=== PATIENT | female | born 1970 | race Caucasian/White ===

== ENCOUNTER 2020-06-06 14:27 | Outpatient (REF) | payer OTHER, SELFPAY ==
[2020-06-06 16:57] LABS: Anion Gap 19 (12-20); Blood Urea Nitrogen 18 mg/dL (9-16); Carbon Dioxide 20 mmol/L (22-29); Chloride 105 mmol/L (96-108); Cholesterol 166 mg/dL; Estimated Glomerular Filt Rate 55; Glucose Random 174 mg/dL (60-115); HDL Cholesterol 46 mg/dL; LDL Cholesterol Calculated 79 mg/dl; Potassium 4.9 mmol/L (3.3-5.1); Sodium 139 mmol/L (135-145); Triglycerides 206 mg/dL
[2020-06-06 17:19] LABS: TSH reflex Free T4 0.72 uIU/mL (0.32-4.0)
[2020-06-07 07:17] LABS: Estimated Average Glucose 117 mg/dL; Hemoglobin A1c % 5.7 %
== END 2020-06-06 14:28 | disposition home or self-care (01) ==
LOC: HO.HMGCLDS 14:27
PROVIDERS: PCP Internal Medicine; Visit Provider Internal Medicine
DX: E03.9 Hypothyroidism, unspecified (principal); E13.9 Other specified diabetes mellitus without complications; E78.9 Disorder of lipoprotein metabolism, unspecified
CPT/HCPCS: 36415; 80048; 80061; 83036; 84443

== ENCOUNTER 2020-09-11 08:46 | Outpatient (REF) | payer OTHER, SELFPAY ==
[2020-09-11 11:44] LABS: Creatinine Urine 228.43 mg/dL; Microalbum/Creatinine Ratio Ur 9.6 ug/mg cr
[2020-09-11 11:54] LABS: Estimated Average Glucose 111 mg/dL; Hemoglobin A1c % 5.5 %
[2020-09-11 12:07] LABS: Alanine Aminotransferase 33 U/L (0-31); Albumin Level 3.9 g/dL (3.5-5.0); Alkaline Phosphatase 80 U/L (39-117); Anion Gap 11 (12-20); Aspartate Amino Transferase 44 U/L (5-31); Bilirubin Total 0.8 mg/dL (0.0-1.0); Blood Urea Nitrogen 19 mg/dL (9-16); Calcium 9.5 mg/dL (8.4-10.2); Carbon Dioxide 29 mmol/L (22-29); Chloride 105 mmol/L (96-108); Estimated Glomerular Filt Rate > 60; Glucose Random 125 mg/dL (60-115); Potassium 3.8 mmol/L (3.3-5.1); Sodium 141 mmol/L (135-145); Total Protein 6.8 g/dL (6.5-8.0)
[2020-09-11 12:16] LABS: TSH reflex Free T4 1.39 uIU/mL (0.32-4.0)
== END 2020-09-11 08:47 | disposition home or self-care (01) ==
LOC: HO.HMGCLDS 08:46
PROVIDERS: PCP Internal Medicine; Visit Provider Internal Medicine
DX: E03.9 Hypothyroidism, unspecified (principal); E13.9 Other specified diabetes mellitus without complications; E78.9 Disorder of lipoprotein metabolism, unspecified; I10 Essential (primary) hypertension
CPT/HCPCS: 36415; 80053; 82043; 83036; 84443

== ENCOUNTER 2021-01-13 15:22 | Outpatient (REF) | payer OTHER, SELFPAY ==
[2021-01-13 16:53] LABS: Estimated Average Glucose 114 mg/dL; Hemoglobin A1c % 5.6 %
== END 2021-01-13 15:23 | disposition home or self-care (01) ==
LOC: HO.HMGCLDS 15:22
PROVIDERS: PCP Internal Medicine; Visit Provider Internal Medicine
DX: E13.9 Other specified diabetes mellitus without complications (principal); I10 Essential (primary) hypertension; E78.9 Disorder of lipoprotein metabolism, unspecified; E03.9 Hypothyroidism, unspecified
CPT/HCPCS: 36415; 80053; 83036; 84443

== ENCOUNTER 2021-04-03 | Outpatient (REF) | payer OTHER, SELFPAY | END 2021-04-03 00:01 | disposition home or self-care (01) | LOC: HO.LNP | PROVIDERS: Visit Provider Internal Medicine | DX: Z13.89 Encounter for screening for other disorder (principal) ==

== ENCOUNTER 2021-04-17 14:59 | Outpatient (REF) | payer OTHER, SELFPAY ==
[2021-04-17 16:29] LABS: Estimated Average Glucose 108 mg/dL; Hemoglobin A1c % 5.4 %
[2021-04-17 16:34] LABS: Microalbum/Creatinine Ratio Ur 63.5 ug/mg cr
[2021-04-17 16:36] LABS: Alanine Aminotransferase 16 U/L (0-31); Albumin Level 3.4 g/dL (3.5-5.0); Alkaline Phosphatase 74 U/L (39-117); Anion Gap 13 (12-20); Aspartate Amino Transferase 32 U/L (5-31); Bilirubin Total 0.9 mg/dL (0.0-1.0); Blood Urea Nitrogen 16 mg/dL (9-16); Calcium 9.5 mg/dL (8.4-10.2); Carbon Dioxide 27 mmol/L (22-29); Chloride 105 mmol/L (96-108); Estimated Glomerular Filt Rate > 60; Glucose Random 137 mg/dL (60-115); Potassium 4.5 mmol/L (3.3-5.1); Sodium 140 mmol/L (135-145); Total Protein 6.6 g/dL (6.5-8.0)
[2021-04-18 06:36] LABS: LDL Cholesterol Direct 89 mg/dL (<100)
== END 2021-04-17 15:00 | disposition home or self-care (01) ==
LOC: HO.HMGCLDS 14:59
PROVIDERS: PCP Internal Medicine; Visit Provider Internal Medicine
DX: E03.9 Hypothyroidism, unspecified (principal); E13.9 Other specified diabetes mellitus without complications; E78.9 Disorder of lipoprotein metabolism, unspecified; I10 Essential (primary) hypertension; K50.90 Crohn's disease, unspecified, without complications; M06.9 Rheumatoid arthritis, unspecified
CPT/HCPCS: 36415; 80053; 82043; 83036; 83721

== ENCOUNTER 2021-05-04 09:47 | Inpatient (IN) | payer OTHER, SELFPAY ==
--- NOTE | 2021-05-04 | ECG_ITS ---
Test Reason : tachy Blood Pressure : / mmHG Vent. Rate : 122 BPM Atrial Rate : 122 BPM P-R Int : 112 ms QRS Dur : 102 ms QT Int : 428 ms P-R-T Axes : 017 003 020 degrees QTc Int : 609 ms Sinus tachycardia Cannot rule out Anterior infarct , age undetermined Abnormal ECG When compared with ECG of 23-AUG-2016 08:51, Minimal criteria for Anterior infarct are now Present Nonspecific T wave abnormality now evident in Lateral leads Referred By: Generic ED Physician Electronically Signed By:Guilherme Mansfield
--- NOTE | ~2021-05-04 | US_ITS ---
EXAMINATION: US ABDOMEN LIMITED CLINICAL INFORMATION: Right upper quadrant pain. Gallbladder sludge noted on CT done earlier today. COMPARISON: CT of the abdomen/pelvis done earlier today at 6:05 PM. TECHNIQUE: Real-time imaging of the gallbladder. US/US abdomen limited FINDINGS/IMPRESSION: The gallbladder is better appreciated on the CT from earlier today, as this ultrasound is limited due to shadowing from overlying bowel gas and patient body habitus. However, despite these limitations, there is no significant wall thickening (0.2 cm in thickness) and there is no evidence of stones. In this ultrasound there is no evidence of gallbladder sludge but this is likely related to limitations of the study, please refer to the recent CT. The common bile duct measures 0.4 cm. There is redemonstration of ascites.
--- NOTE | ~2021-05-04 | CT_ITS ---
EXAMINATION: CT ABDOMEN AND PELVIS WITHOUT CONTRAST CLINICAL INFORMATION: Right mid abdominal pain. COMPARISON: CT abdomen/pelvis dated from 08/23/2016. TECHNIQUE: Multidetector volumetric imaging was performed from the superior aspect of the liver through the pubic symphysis. Sagittal and coronal reformatted images were obtained on the technologist's workstation. This CT examination was performed using dose optimization techniques as appropriate, variously including the following: *Automated exposure control. *Adjustment of mA and/or kV according to patient size (this includes techniques or standardized protocols for targeted exams where dose is matched to indication/reason for exam; i.e. extremities or head). *Use of iterative reconstruction technique. DLP: 885 mGy-cm FINDINGS: LUNG BASES: Small left-sided pleural effusion. Coronary calcifications. LIVER, GALLBLADDER, AND BILIARY TREE: Cirrhotic liver with findings of portal hypertension including splenomegaly, ascites and portosystemic varices. No biliary ductal dilatation. The gallbladder is hydropic with layering sludge and nonspecific pericholecystic free fluid in the setting of ascites. PANCREAS: Atrophic. The main pancreatic duct is nondilated. SPLEEN: Splenomegaly measuring 17.7 cm craniocaudally. ADRENAL GLANDS: Unremarkable. KIDNEYS AND URETERS: Small 0.3 cm calculi in the lower pole of each kidney. No hydronephrosis. Mild nonspecific, right greater than left, perinephric fat stranding. BLADDER: Underdistended and suboptimally assessed. GASTROINTESTINAL TRACT: There is wall thickening of the stomach and proximal duodenum. Duodenal ulcerations are difficult to exclude on axial images 237 to 258 of series 4. There is also wall thickening of the ascending colon and hepatic flexure. No bowel obstruction. No free air. Moderate volume of ascites. ABDOMINAL WALL: Anasarca. Fat-containing umbilical hernia. Right lower abdominal wall surgical mash with a fat-containing hernia adjacent to this mesh on the right abdominal wall (3:58). LYMPH NODES: Evaluation is limited in the absence of intravenous contrast and the presence of ascites. No bulky lymphadenopathy is definitely identified. VASCULAR: Atherosclerotic disease. PELVIC VISCERA: Unremarkable. OSSEOUS STRUCTURES: No acute or aggressive-appearing osseous abnormalities. Thoracolumbar spondylosis. Healing right-sided rib fractures. CT/CT abdomen pelvis wo con IMPRESSION: The lack of intravenous contrast limits evaluation of the solid visceral organs including the liver, spleen, pancreas, and kidneys. 1. Cirrhotic liver with portal hypertension and moderate volume of ascites. 2. There is wall thickening of the stomach, proximal duodenum, ascending colon and hepatic flexure. These are nonspecific but potentially related with portal hypertensive gastroenteropathy. 3. In the duodenal bulb, there is irregularity of the wall with small scattered outpouchings in which ulcerations cannot be excluded. If indicated, correlation with an upper endoscopy could be obtained. 4. Nonobstructive renal calculi. 5. Postsurgical changes in the right lower abdominal wall with recurrent fat-containing herniation. 6. Small left pleural effusion.
[2021-05-04 10:03] VITALS: BP 157/101; PULSE 120; O2SAT 98
[2021-05-04 11:24] VITALS: BP 130/81; PULSE 130; RESP 18; TEMP 36.9; O2SAT 98; BMI 35.4
[2021-05-04] MEDS: Ondansetron ODT 4 MG TAB.RAPDIS TRANSLINGU (11:35)
[2021-05-04] MEDS: Acetaminophen 325 MG TABLET 975 MG PO (11:38)
[2021-05-04 12:24] LABS: Appearance Urine CLOUDY; Color Urine DK YELLOW; Glucose Urine UA NEG (NEG); Leukocyte Esterase Urine 2+ (NEG); Nitrite Urine NEG (NEG); PH 5.5 (5.0-8.0); UACC Culture Trigger YES; Urine Blood 3+ (NEG); Urine Ketones NEG (NEG); Urine Protein NEG (NEG-TRACE)
[2021-05-04 12:39] LABS: Bacteria Urine 3+ /LPF; Mucus Urine 1+ /LPF; Renal Epithelial Cells Urine 1+ /LPF; Squamous Epithelial Cell Urine 1+ /LPF
--- NOTE | 2021-05-04 12:42 | ED_ITS ---
HPI - General Adult General Chief complaint: General Medical Stated complaint: right arm and neck pain Time Seen by Provider: 05/04/21 12:28 Source: patient and old records reviewed History of Present Illness HPI narrative: Patient complaining of nausea vomiting and diarrhea. Symptoms began 6 days ago but got much worse proximally 3 days ago. She states the diarrhea is watery and foul-smelling. She has had C diff in the past and says this similar. She complains of abdominal pain mostly low right-sided. She has a history of appendectomy. Positive fevers and chills. Recent antibiotics approximately 2 weeks ago for a urinary tract infection. Macrobid. She was on a for 1 week. She states she has had some blood clots and mucus in her urine. No blood in her stool or melena. No hematemesis She also complains of right neck and arm pain which she describes as a spasm type sensation. No recent injuries or precipitating causes. She states it feels similar to an episode she had 20 years ago when her potassium was low. No chest pain. No dyspnea. She states she feels like she might be withdrawing, as she was unable to get her methadone dose today since she was sick and they sent her from the clinic to the emergency department. She typically gets 71 mg daily. Denies recent opioid use and states has been ?completely clean? since 2012. History of hepatitis-C which is cured per patient Related Data Home Medications Medication Instructions Recorded Confirmed celecoxib 200 mg capsule 0 mg PO 11/30/19 04/17/21 linaclotide 290 mcg capsule 290 mcg PO DAILY PRN 11/30/19 04/17/21 tofacitinib 5 mg tablet 5 mg PO BID 11/30/19 04/03/21 Previous Rx's Medication Instructions Recorded levothyroxine 50 mcg tablet 50 mcg PO DAILY 90 Days #90 tab 09/12/20 metronidazole 1 % topical gel 1 appl TOPICAL BEDTIME 30 Days #60 09/12/20 (Metrogel) g fluticasone propionate 50 1 spray INTRANASAL DAILY #16 g 09/15/20 mcg/actuation nasal spray,suspension acyclovir 400 mg tablet 400 mg PO DAILY #90 tab 02/23/21 metoprolol succinate 50 mg 50 mg PO DAILY 90 Days #90 tab 03/10/21 tablet,extended release 24 hr omeprazole 40 mg capsule,delayed 40 mg PO DAILY #90 cap 03/10/21 release simvastatin 10 mg tablet 10 mg PO BEDTIME #90 tab 03/10/21 metformin 500 mg tablet 500 mg PO BID 90 Days #180 tab 04/03/21 nitrofurantoin 100 mg PO Q12H 7 Days #14 cap 04/03/21 monohydrate/macrocrystals 100 mg capsule (Macrobid) furosemide 20 mg tablet (Lasix) 20 mg PO QAM 90 Days #90 tab 04/21/21 Allergies Allergy/AdvReac Type Severity Reaction Status Date / Time ciprofloxacin [Cipro] Allergy Unknown swelling Verified 04/17/21 15:29 of the throat , hives Review of Systems Constitutional: Comments: Positive fevers and chills ENT: Comments: Mild feels very dry Cardiovascular: Comments: Palpitation without chest pain Respiratory: Comments: No cough or dyspnea Gastrointestinal: Comments: Nausea vomiting diarrhea and abdominal pain Genitourinary: Comments: No dysuria. Positive clots or mucus in her last urination Musculoskeletal: Comments: Left neck and arm pain, cramp like. 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 Other Mental health disorder Substance use disorder Social History Social History Housing: Apartment Patient Tobacco Use Status: Current someday Tobacco user Tobacco use type: Cigarette Cigarettes Per Day: 4 Years Smoked: 17 years old Use of substances other than those prescribed or required for medical reasons: No Substance Use Frequency Other:: methadone Advance Directives: No Advance Directives Information Provided: No Current occupational status: employed Physical Exam ED Vital Signs: Vital Signs - 24 hr 05/04/21 11:24 03/21/22 15:24 Temperature 98.5 F 98.9 F Pulse Rate 130 H 115 H Respiratory Rate 18 16 Blood Pressure 130/81 121/64 Pulse Oximetry 98 100 BMI result Body Mass Index 35.4 Const Other: Awake and alert. Tachycardic. HENMT Other: Normocephalic atraumatic. Mucosa very dry Neck Other: Neck tenderness to palpation over left lateral scalene which reproduces symptoms. Positive muscle spasm focally. No trapezius spasm Resp Other: Clear and equal bilaterally without wheezes rales rhonchi Cardio Other: Tachycardic at 130 beats per minute. No murmurs rubs or gallops GI Other: Soft and nondistended. Tenderness diffusely but greatest over right mid to low abdomen. No guarding or rebound. Bowel sounds hyperactive Skin Other: Warm and dry without rash. Poor turgor Neuro Other: Nonfocal Course Course Course Narrative: Dehydration Gastroenteritis C diff colitis Bacterial colitis Urinary tract infection Electrolyte imbalance Renal failure Liver failure IV normal saline Zofran 18:32. Patient with very difficult IV access. She is tolerating mild Po fluids at this point. Heart rate is improved. Lab work shows white count of 12.5. Hemoglobin is 8.6. Platelet count of 26. Creatinine is stable at 0.87. Glucose is 184. Total bilirubin is elevated to 4.5. Transaminases are mildly elevated as well. Await CT scan results. 20:08. CT scan shows diffuse cirrhotic changes with evidence of portal hypertension. Some gallbladder sludge. No evidence of biliary dilatation. Ultrasound confirms these findings. Lactic acid is 3.2 prior to fluid administration. Suspect all secondary to dehydration and hemoconcentration. Still no evidence for sepsis as cause. Given all these findings, diagnosis is likely viral hepatitis. She is still having significant discomfort and nausea. Will repeat dose of Zofran. Add Ketoralac. Her EKG shows sinus rhythm but with a QTC of over 600. Other anti emetics will be avoided at this time such as droperidol. Medical Decision Making Lab Data Result diagrams: 05/04/21 17:33 05/04/21 17:34 Labs: Lab Results 05/04/21 05/04/21 05/04/21 Range/Units 12:15 17:33 17:33 WBC 12.5 H (4.8-10.8) X10*3/uL RBC 2.94 L (4.20-5.50) X10*6/uL Hgb 8.6 L (12.0-16.0) g/dl Hct 26.3 L (37.0-47.0) % MCV 89.5 (80.0-98.0) fL MCH 29.3 (27.0-33.0) pg MCHC 32.7 (31.0-35.0) g/dl RDW 18.0 H (11.0-16.0) % Plt Count 26 L (160-400) X10*3/uL MPV Not Reportable Immature Gran % (Auto) Cancelled Neut % (Auto) Cancelled Lymph % (Auto) Cancelled [place] % (Auto) Cancelled Eos % (Auto) Cancelled Baso % (Auto) Cancelled Lymph # (Auto) Cancelled [place] # (Auto) Cancelled Eos # (Auto) Cancelled Baso # (Auto) Cancelled Abs Immat Gran (auto) Cancelled Absolute Neuts (auto) Cancelled Absolute Nucleated RBC 0.040 H (0.0-0.012) X10*3/uL Nucleated RBC % (auto) 0.3 H (0.0-0.2) /100WBC Neutrophils % (Manual) 74 H (45-73) % Band Neutrophils % 12 H (3-5) % Lymphocytes % (Manual) 2 L (20-40) % Monocytes % (Manual) 10 (2-11) % Metamyelocytes % 1 % Myelocytes % 1 % Abs Neuts (Manual) 10.8 H (2.0-8.3) X10*3/uL Lymphocytes # (Manual) 0.3 L (1.2-4.9) X10*3/uL Monocytes # (Manual) 1.3 H (0.1-1.2) X10*3/uL Metamyelocytes # 0.1 X10*3/uL Myelocytes # 0.1 X10*/uL Nucleated RBCs 1 H (0-0) /100WBC Toxic Vacuolation PRESENT Dohle Bodies PRESENT Platelet Estimate DECREASED (NORMAL) Large Platelets PRESENT Plt Morphology Comment NOTED RBC Morphology NOTED Hypochromasia 1+ (5-14) /OIF Sodium (135-145) mmol/L Potassium (3.3-5.1) mmol/L Chloride (96-108) mmol/L Carbon Dioxide (22-29) mmol/L Anion Gap (12-20) BUN (9-16) mg/dL Creatinine (0.5-1.4) mg/dL Estim Creat Clear Calc Estimated GFR Random Glucose (60-115) mg/dL Lactic Acid (0.5-2.0) mmol/L Calcium (8.4-10.2) mg/dL Magnesium (1.6-2.6) mg/dL Total Bilirubin (0.0-1.0) mg/dL Direct Bilirubin (0.0-0.5) mg/dL AST (5-31) U/L ALT (0-31) U/L Alkaline Phosphatase (39-117) U/L Troponin I High Sens 7.6 (<3.5-17.0) ng/L Total Protein (6.5-8.0) g/dL Albumin (3.5-5.0) g/dL Lipase (8-78) U/L TSH (0.32-4.0) uIU/mL Urine Color DK YELLOW Urine Appearance CLOUDY Urine pH 5.5 (5.0-8.0) Ur Specific [place] 1.020 (1.005-1.025) Urine Protein NEG (NEG-TRACE) MG/DL Urine Glucose (UA) NEG (NEG) MG/DL Urine Ketones NEG (NEG) MG/DL Urine Blood 3+ H (NEG) Urine Nitrite NEG (NEG) Ur Leukocyte Esterase 2+ H (NEG) Urine RBC 5-9 H (0) /HPF Urine WBC 15-29 H (0-4) /HPF Ur Squamous Epith Cells 1+ /LPF Ur Renal Epithelial Cell 1+ /LPF Urine Bacteria 3+ /LPF Urine Mucus 1+ /LPF 05/04/21 05/04/21 Range/Units 17:34 18:55 WBC (4.8-10.8) X10*3/uL RBC (4.20-5.50) X10*6/uL Hgb (12.0-16.0) g/dl Hct (37.0-47.0) % MCV (80.0-98.0) fL MCH (27.0-33.0) pg MCHC (31.0-35.0) g/dl RDW (11.0-16.0) % Plt Count (160-400) X10*3/uL MPV Immature Gran % (Auto) Neut % (Auto) Lymph % (Auto) [place] % (Auto) Eos % (Auto) Baso % (Auto) Lymph # (Auto) [place] # (Auto) Eos # (Auto) Baso # (Auto) Abs Immat Gran (auto) Absolute Neuts (auto) Absolute Nucleated RBC (0.0-0.012) X10*3/uL Nucleated RBC % (auto) (0.0-0.2) /100WBC Neutrophils % (Manual) (45-73) % Band Neutrophils % (3-5) % Lymphocytes % (Manual) (20-40) % Monocytes % (Manual) (2-11) % Metamyelocytes % % Myelocytes % % Abs Neuts (Manual) (2.0-8.3) X10*3/uL Lymphocytes # (Manual) (1.2-4.9) X10*3/uL Monocytes # (Manual) (0.1-1.2) X10*3/uL Metamyelocytes # X10*3/uL Myelocytes # X10*/uL Nucleated RBCs (0-0) /100WBC Toxic Vacuolation Dohle Bodies Platelet Estimate (NORMAL) Large Platelets Plt Morphology Comment RBC Morphology Hypochromasia /OIF Sodium 137 (135-145) mmol/L Potassium 4.6 (3.3-5.1) mmol/L Chloride 105 (96-108) mmol/L Carbon Dioxide 21 L (22-29) mmol/L Anion Gap 16 (12-20) BUN 31 H D (9-16) mg/dL Creatinine 0.87 (0.5-1.4) mg/dL Estim Creat Clear Calc 82.7 Estimated GFR > 60 Random Glucose 184 H (60-115) mg/dL Lactic Acid 3.2 H* (0.5-2.0) mmol/L Calcium 8.1 L D (8.4-10.2) mg/dL Magnesium 2.3 (1.6-2.6) mg/dL Total Bilirubin 4.5 H (0.0-1.0) mg/dL Direct Bilirubin 3.2 H (0.0-0.5) mg/dL AST 75 H (5-31) U/L ALT 57 H (0-31) U/L Alkaline Phosphatase 205 H D (39-117) U/L Troponin I High Sens (<3.5-17.0) ng/L Total Protein 5.6 L (6.5-8.0) g/dL Albumin 2.6 L D (3.5-5.0) g/dL Lipase 70 (8-78) U/L TSH 0.75 (0.32-4.0) uIU/mL Urine Color Urine Appearance Urine pH (5.0-8.0) Ur Specific [place] (1.005-1.025) Urine Protein (NEG-TRACE) MG/DL Urine Glucose (UA) (NEG) MG/DL Urine Ketones (NEG) MG/DL Urine Blood (NEG) Urine Nitrite (NEG) Ur Leukocyte Esterase (NEG) Urine RBC (0) /HPF Urine WBC (0-4) /HPF Ur Squamous Epith Cells /LPF Ur Renal Epithelial Cell /LPF Urine Bacteria /LPF Urine Mucus /LPF Discharge Plan Discharge Patient Disposition: Admitted As Inpatient Prescriptions: No Action fluticasone propionate 50 mcg/actuation spray,suspension 1 spray intranasal DAILY Qty: 16 0RF acyclovir 400 mg tablet 400 mg PO DAILY Qty: 90 0RF omeprazole 40 mg capsule,delayed release(DR/EC) 40 mg PO DAILY Qty: 90 0RF metoprolol succinate 50 mg tablet extended release 24 hr 50 mg PO DAILY 90 Days Qty: 90 0RF simvastatin 10 mg tablet 10 mg PO BEDTIME Qty: 90 0RF furosemide [Lasix] 20 mg tablet 20 mg PO QAM 90 Days Qty: 90 0RF levothyroxine 50 mcg tablet 50 mcg PO DAILY 90 Days Qty: 90 3RF metronidazole [Metrogel] 1 % gel 1 appl topical BEDTIME 30 Days Qty: 60 0RF Xeljanz 5 mg tablet 5 mg PO BID 0RF celecoxib 200 mg capsule 0 mg PO 0RF Linzess 290 mcg capsule 290 mcg PO DAILY PRN0RF metformin 500 mg tablet 500 mg PO BID 90 Days Qty: 180 0RF nitrofurantoin monohyd/m-cryst [Macrobid] 100 mg capsule 100 mg PO Q12H 7 Days Qty: 14 0RF Rx Instructions: must administer with a meal/food
--- NOTE | 2021-05-04 14:55 | MHC.CM.PN ---
Addendum entered by Olga Lidia Steen 05/04/21 15:47: CM,M RECEIVED A MESSAGE TO CALL [facility] [phone] AT [email or web address] FOR DOSE VERIFICATION [facility] REPORTS THIS PT PRESENTED TO THE CLINIC TODAY TO DOSE HOWEVER DUE TO HER MEDICAL COMPLAINTS, HER METHADONE WAS HELD AND SHE WAS SENT TO THE ED. [facility] CONFIRMS THE LAST TIME THEY DOSED THE PT WAS YESTERDAY, 05/03/21 AND HER DOSE IS 71MGS. Original Note: HECTOR LEFT FOR [facility]MTP NURSE ([phone]) REQUESTING RETURN CALL TO CONFIRM DOSE.
[2021-05-04 15:24] VITALS: BP 121/64; PULSE 115; RESP 16; TEMP 37.2; O2SAT 100
[2021-05-04] MEDS: methADONE HCl 20 MG/2 ML ORAL.CONC 70 MG PO (16:01)
--- NOTE | 2021-05-04 16:50 | PC.NURSE ---
Pt very difficult IV stick, Carol Ann tech third tech to attempt, this RN unable to obtain IV access, MD Mckeon aware. Pt tolerating PO fluids, no vomiting noted by this RN
--- NOTE | 2021-05-04 17:35 | PC.NURSE ---
Phelbotomy to bedside, able to perform fingerstick for all labs except Lactic
[2021-05-04 17:48] LABS: Hematocrit 26.3 % (37.0-47.0); Hemoglobin 8.6 g/dl (12.0-16.0); Mean Corpuscular HGB Conc 32.7 g/dl (31.0-35.0); Mean Corpuscular Hemoglobin 29.3 pg (27.0-33.0); Mean Corpuscular Volume 89.5 fL (80.0-98.0); NRBC Pct Auto 0.3 /100WBC (0.0-0.2); Red Blood Count 2.94 X10*6/uL (4.20-5.50)
[2021-05-04 18:15] LABS: Troponin-I High Sensitivity 7.6 ng/L (<3.5-17.0)
[2021-05-04 18:20] LABS: Alanine Aminotransferase 57 U/L (0-31); Albumin Level 2.6 g/dL (3.5-5.0); Alkaline Phosphatase 205 U/L (39-117); Anion Gap 16 (12-20); Aspartate Amino Transferase 75 U/L (5-31); Bilirubin Direct 3.2 mg/dL (0.0-0.5); Bilirubin Total 4.5 mg/dL (0.0-1.0); Blood Urea Nitrogen 31 mg/dL (9-16); Calcium 8.1 mg/dL (8.4-10.2); Carbon Dioxide 21 mmol/L (22-29); Chloride 105 mmol/L (96-108); Creatinine Clr Calc Pharmacy 82.7; Estimated Glomerular Filt Rate > 60; Glucose Random 184 mg/dL (60-115); Lipase 70 U/L (8-78); Magnesium 2.3 mg/dL (1.6-2.6); Potassium 4.6 mmol/L (3.3-5.1); Sodium 137 mmol/L (135-145); Total Protein 5.6 g/dL (6.5-8.0)
[2021-05-04 18:20] LABS: Platelet Count 26 X10*3/uL (160-400); WBC ABN SCTR FOR CBC 1
[2021-05-04 18:22] LABS: White Blood Count 12.5 X10*3/uL (4.8-10.8)
[2021-05-04 18:28] LABS: Band Neutrophils Percent 12 % (3-5); Lymphocytes Absolute Manual 0.3 X10*3/uL (1.2-4.9); Lymphocytes Percent Manual 2 % (20-40); Metamyelocytes Absolute 0.1 X10*3/uL; Metamyelocytes Percent 1 %; Monocytes Absolute Manual 1.3 X10*3/uL (0.1-1.2); Monocytes Percent Manual 10 % (2-11); Myelocytes Absolute 0.1 X10*/uL; Myelocytes Percent 1 %; Neutrophils Absolute Manual 10.8 X10*3/uL (2.0-8.3); Neutrophils Percent Manual 74 % (45-73); Nucleated Red Blood Cells 1 /100WBC (0-0)
[2021-05-04 18:29] LABS: TSH reflex Free T4 0.75 uIU/mL (0.32-4.0)
[2021-05-04 18:30] LABS: Dohle Bodies PRESENT; Toxic Vacuolation PRESENT
[2021-05-04 18:31] LABS: Hypochromasia 1+ (5-14) /OIF; Large Platelet PRESENT; Platelet Estimate DECREASED (NORMAL); Platelet Morphology Comment NOTED
[2021-05-04 18:32] LABS: RBC Morphology NOTED
[2021-05-04 19:30] LABS: Lactic Acid 3.2 mmol/L (0.5-2.0)
[2021-05-04] MEDS: 0.9 % Sodium Chloride 1,000 ML 999 ML IV (19:55)
[2021-05-04] MEDS: ondansetron HCL 4 MG/2 ML VIAL IVPUSH (20:21)
[2021-05-04] MEDS: Ketorolac Tromethamine 15 MG/ML VIAL 30 MG IVPUSH (20:22)
[2021-05-04 20:24] VITALS: BP 124/73; PULSE 110; RESP 13; O2SAT 96
--- NOTE | 2021-05-04 20:30 | PC.NURSE ---
pt ambulated to BR to void
[2021-05-04 21:09] LABS: Reflex Lactate? Lactic Acid Added
[2021-05-04 22:14] VITALS: BP 135/93; PULSE 111; RESP 10; O2SAT 95
[2021-05-04 23:18] VITALS: BP 131/58; PULSE 110; RESP 20; O2SAT 93
[2021-05-05] VITALS (10 sets, daily range): BP systolic 115–147; BP diastolic 63–86; PULSE 87–114; RESP 12–18; TEMP 36.4–37.7; O2SAT 92–97
[2021-05-05 00:24] LABS: COVID-19 Test Negative (Negative)
--- NOTE | 2021-05-05 00:28 | PC.NURSE ---
pt having a popsicle
[2021-05-05 00:32] LABS: B Type Natriuretic Peptide 55 pg/mL (<100)
[2021-05-05 00:55] LABS: Glucose, Whole Blood 153 mg/dL (60-115)
[2021-05-05] MEDS: Enoxaparin Sodium 40 MG/0.4 ML SYRINGE SUBCUT (02:00)
[2021-05-05] MEDS: Furosemide 20 MG TABLET PO ×2 (02:00→08:57)
[2021-05-05] MEDS: Nitrofurantoin Monohyd/M-Cryst 100 MG CAPSULE PO (02:00)
[2021-05-05] MEDS: 0.9 % Sodium Chloride Flush 3 ML SYRINGE IVFLUSH ×3 (02:01→15:37)
--- NOTE | 2021-05-05 02:52 | PC.NURSE ---
Prior to administering iv antibiotic rocephin, this rn noted no blood cultures drawn. Notified Dr. Lei, order in for blood cultures to be drawn prior to first dose of antibioc. general maintenance technician notified.
--- NOTE | 2021-05-05 02:55 | PC.NURSE ---
Patient ambulated to bathroom supervised, voided yellow urine, no bm to collect at this time.
[2021-05-05] MEDS: cefTRIAXone sodium 1 GM in 0.9 % Sodium Chloride 50 ML IV (03:38)
[2021-05-05] MEDS: ondansetron HCL 4 MG/2 ML VIAL IVPUSH ×2 (03:44→18:23)
--- NOTE | 2021-05-05 04:01 | PC.NURSE ---
pt ambulated to br independently with steady gait
[2021-05-05] MEDS: Levothyroxine Sodium 50 MCG TABLET PO (06:05)
[2021-05-05] MEDS: Acetaminophen 325 MG TABLET 650 MG PO ×2 (06:05→17:43)
--- NOTE | 2021-05-05 06:36 | PM.IMHP ---
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 Patient reports that about 2 weeks ago she had urinary symptoms including frequency urgency and went to her primary care physician who prescribed her Macrobid. She finished her course of Macrobid but continued to have symptoms. She went back to PCPs office on Tuesday, she was cultured at that time but did not hear back from her doctor's office and decided to come to the ED due to her worsening symptoms. Patient reports that since Tuesday she started vomiting constantly after every meal, she has also had about 15 episodes of diarrhea daily, she has per suprapubic pain that she describes as constant, as well as right upper quadrant pain that is 10/10, nonradiating, not associated with eating, patient reports that she also checked her temperature and she had a fever of 103.9. She has also noted swelling in her legs bilaterally, she short of breath on exertion, denies having for cough. No PND or orthopnea. All other review of systems negative except as mentioned. On arrival to the ED patient was found to have a temp of 98.5 degrees, heart rate of 130, satting 98% on room air with a blood pressure 130/81 Labs are significant for WBC count of 12.5, hemoglobin of 8.6 with no previous for comparison, lactic acid of 3.2, total bili of 4.51 previously in April it was normal, AST of 75 increased from 30/2, ALT of 57, alk-phos of 205, UA positive for leukocyte Estrace and WBC as well as urine RBC. Hepatitis panel pending. Abdominal pelvic CT showed cirrhotic liver with portal hypertension and moderate volume of ascites, there is wall thickening of stomach proximal duodenum ascending colon and hepatic flexure, nonspecific but could be secondary to portal hypertensive gastropathy, in duodenal bulb there is irregularity of the wall with small scattered outpouching in which serration cannot be excluded. 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 Other Mental health disorder Substance use disorder Surgical History History of appendectomy History of bowel resection History of hernia repair Social History Housing: Apartment Patient Tobacco Use Status: Current someday Tobacco user Tobacco use type: Cigarette Cigarettes Per Day: 4 Years Smoked: 17 years old Use of substances other than those prescribed or required for medical reasons: No Substance Use Frequency Other:: methadone Advance Directives: No Advance Directives Information Provided: No Current occupational status: employed Meds Allergies Allergy/AdvReac Type Severity Reaction Status Date / Time ciprofloxacin [Cipro] Allergy Unknown swelling Verified 04/17/21 15:29 of the throat , hives Active Medications: Current Medications Acetaminophen (Acetaminophen 325 Mg Tablet) 650 mg PO Q8H PRN PRN Reason: Pain, Mild (Pain Scale 1-3) Last Admin: 05/05/21 06:05 Dose: 650 mg Documented by: Acyclovir (Acyclovir 200 Mg Capsule) 400 mg PO DAILY [facility] Atorvastatin Calcium (Atorvastatin Calcium 10 Mg Tablet) 5 mg PO BEDTIME [facility]ENC[facility] Dextrose (Dextrose 50 % 25 Gm/50 Ml Vial) 25 gm IVPUSH Q15M PRN; Protocol PRN Reason: per Hypoglycemia Standing Ord. Docusate Sodium (Docusate Sodium 100 Mg Capsule) 100 mg PO DAILY PRN PRN Reason: Constipation Enoxaparin Sodium (Enoxaparin Sodium 40 Mg/0.4 Ml Syringe) 40 mg SUBCUT Q24H [facility] Last Admin: 05/05/21 02:00 Dose: 40 mg Documented by: Furosemide (Furosemide 20 Mg Tablet) 20 mg PO DAILY FLORENCIO; Protocol Last Admin: 05/05/21 02:00 Dose: 20 mg Documented by: Glucose (Glucose Gel 15 Gm Gel..Gram.) 15 gm PO Q15M PRN; Protocol PRN Reason: per Hypoglycemia Standing Ord. Ceftriaxone Sodium 1 gm/ (Sodium Chloride) 50 mls @ 100 mls/hr IV Q24H [facility] Last Infusion: 05/05/21 04:09 Dose: Infused Documented by: Insulin Human Lispro (Insulin Lispro 100 Unit/Ml 3 Ml Vial) 0 unit SUBCUT QIDACHS [facility]; Protocol Levothyroxine Sodium (Levothyroxine Sodium 50 Mcg Tablet) 50 mcg PO DAILY@0600 [facility] Last Admin: 05/05/21 06:05 Dose: 50 mcg Documented by: Methadone HCl (Methadone Hcl 20 Mg/2 Ml Oral.Conc) 71 mg PO DAILY [facility] Metoprolol Succinate (Metoprolol Succinate Er 50 Mg Tab.Er.24h) 50 mg PO DAILY [facility]; Protocol Nitrofurantoin Macrocrystals (Nitrofurantoin Monohyd/M-Cryst 100 Mg Capsule) 100 mg PO Q12H [facility] Last Admin: 05/05/21 02:00 Dose: 100 mg Documented by: Non-Formulary Medication (Tofacitinib) 5 mg PO BID [facility] Non-Formulary Medication (Metronidazole [Metrogel]) 1 appl TOPICAL BEDTIME [facility] Omeprazole (Omeprazole 40 Mg Capsule.Dr) 40 mg PO DAILY [facility] Sodium Chloride (0.9 % Sodium Chloride Flush 3 Ml Syringe) 3 ml IVFLUSH QSHIFT [facility] Last Admin: 05/05/21 02:01 Dose: 3 ml Documented by: Home Medications Medication Instructions Recorded Confirmed Last Taken Type celecoxib 200 mg capsule 200 mg PO 11/30/19 04/17/21 Unknown History tofacitinib 5 mg tablet 5 mg PO BID 11/30/19 05/04/21 Unknown History methadone 10 mg/mL oral concentrate 71 mg PO DAILY 05/04/21 05/04/21 Unknown History Physical Exam Vital Signs and Narrative: Vital Signs: Last Vital Signs Temp 98.4 F 05/05/21 06:08 Pulse 108 H 05/05/21 06:08 Resp 18 05/05/21 06:08 BP 134/76 05/05/21 06:08 Pulse Ox 97 05/05/21 06:08 BMI result Body Mass Index 35.4 Const: Other: Patient appears ill, shaking General: cooperative and no acute distress Orientation/consciousness: patient oriented x3 Eyes: General: appearance normal, both eyes and all related structures Resp: Effort & Inspection: normal respiratory effort Auscultation: clear to auscultation bilaterally Cardio: Rate: regular rate Rhythm: regular rhythm GI: Other: Has some suprapubic tenderness Palpation (GI): Soft to palpation Auscultation: normal bowel sounds : Other: No flank pain Skin: General skin exam: no rashes or lesions noted Neuro: General: patient oriented x3 Extrem: General: Yes normal to inspection and Yes no pedal edema Results Labs CBC and Chem 7: 05/04/21 17:33 05/04/21 17:34 Labs: Laboratory Results - last 24 hr 05/04/21 05/04/21 05/04/21 12:15 17:33 17:34 MCV 89.5 MCH 29.3 MCHC 32.7 RDW 18.0 H Plt Count 26 L MPV Not Reportable Immature Gran % (Auto) Cancelled Neut % (Auto) Cancelled Lymph % (Auto) Cancelled [place] % (Auto) Cancelled Eos % (Auto) Cancelled Baso % (Auto) Cancelled Lymph # (Auto) Cancelled [place] # (Auto) Cancelled Eos # (Auto) Cancelled Baso # (Auto) Cancelled Abs Immat Gran (auto) Cancelled Absolute Neuts (auto) Cancelled Absolute Nucleated RBC 0.040 H Nucleated RBC % (auto) 0.3 H Neutrophils % (Manual) 74 H Band Neutrophils % 12 H Lymphocytes % (Manual) 2 L Monocytes % (Manual) 10 Metamyelocytes % 1 Myelocytes % 1 Abs Neuts (Manual) 10.8 H Lymphocytes # (Manual) 0.3 L Monocytes # (Manual) 1.3 H Metamyelocytes # 0.1 Myelocytes # 0.1 Nucleated RBCs 1 H Toxic Vacuolation PRESENT Dohle Bodies PRESENT Platelet Estimate DECREASED Large Platelets PRESENT Plt Morphology Comment NOTED RBC Morphology NOTED Hypochromasia 1+ (5-14) Anion Gap 16 Estim Creat Clear Calc 82.7 Estimated GFR > 60 POC Glucose Random Glucose 184 H Lactic Acid Lactic Acid F/U @ 2Hr Calcium 8.1 L D Magnesium 2.3 Total Bilirubin 4.5 H Direct Bilirubin 3.2 H AST 75 H ALT 57 H Alkaline Phosphatase 205 H D B-Natriuretic Peptide Total Protein 5.6 L Albumin 2.6 L D Lipase 70 TSH 0.75 Urine Color DK YELLOW Urine Appearance CLOUDY Urine pH 5.5 Ur Specific [place] 1.020 Urine Protein NEG Urine Glucose (UA) NEG Urine Ketones NEG Urine Blood 3+ H Urine Nitrite NEG Ur Leukocyte Esterase 2+ H Urine RBC 5-9 H Urine WBC 15-29 H Urine WBC Clumps Ur Squamous Epith Cells 1+ Ur Renal Epithelial Cell 1+ [place] Biurate Crystals Calcium Carbonate Cryst Calcium Phosphate Cryst Calcium Oxalate Crystal Leucine Crystals Cystine Crystals Uric Acid Crystals Triple Phos Crystals Talc Crystals Tyrosine Crystals Other Crystals Amorphous Sediment Urine Bacteria 3+ Epithelial Casts Fatty Casts Hyaline Casts Granular Casts Waxy Casts RBC Casts WBC Casts Other Casts Urine Mucus 1+ Urine Trichomonas Urine Yeast Urine Sperm Ur Oval Fat Bodies COVID-19 ([facility]) COVID-19 Clin Com 05/04/21 05/04/21 05/04/21 18:55 21:33 23:34 MCV MCH MCHC RDW Plt Count MPV Immature Gran % (Auto) Neut % (Auto) Lymph % (Auto) [place] % (Auto) Eos % (Auto) Baso % (Auto) Lymph # (Auto) [place] # (Auto) Eos # (Auto) Baso # (Auto) Abs Immat Gran (auto) Absolute Neuts (auto) Absolute Nucleated RBC Nucleated RBC % (auto) Neutrophils % (Manual) Band Neutrophils % Lymphocytes % (Manual) Monocytes % (Manual) Metamyelocytes % Myelocytes % Abs Neuts (Manual) Lymphocytes # (Manual) Monocytes # (Manual) Metamyelocytes # Myelocytes # Nucleated RBCs Toxic Vacuolation Dohle Bodies Platelet Estimate Large Platelets Plt Morphology Comment RBC Morphology Hypochromasia Anion Gap Estim Creat Clear Calc Estimated GFR POC Glucose Random Glucose Lactic Acid 3.2 H* Lactic Acid F/U @ 2Hr 2.0 Calcium Magnesium Total Bilirubin Direct Bilirubin AST ALT Alkaline Phosphatase B-Natriuretic Peptide Total Protein Albumin Lipase TSH Urine Color Cancelled Urine Appearance Cancelled Urine pH Cancelled Ur Specific [place] Cancelled Urine Protein Cancelled Urine Glucose (UA) Cancelled Urine Ketones Cancelled Urine Blood Cancelled Urine Nitrite Cancelled Ur Leukocyte Esterase Cancelled Urine RBC Cancelled Urine WBC Cancelled Urine WBC Clumps Cancelled Ur Squamous Epith Cells Cancelled Ur Renal Epithelial Cell Cancelled [place] Biurate Crystals Cancelled Calcium Carbonate Cryst Cancelled Calcium Phosphate Cryst Cancelled Calcium Oxalate Crystal Cancelled Leucine Crystals Cancelled Cystine Crystals Cancelled Uric Acid Crystals Cancelled Triple Phos Crystals Cancelled Talc Crystals Cancelled Tyrosine Crystals Cancelled Other Crystals Cancelled Amorphous Sediment Cancelled Urine Bacteria Cancelled Epithelial Casts Cancelled Fatty Casts Cancelled Hyaline Casts Cancelled Granular Casts Cancelled Waxy Casts Cancelled RBC Casts Cancelled WBC Casts Cancelled Other Casts Cancelled Urine Mucus Cancelled Urine Trichomonas Cancelled Urine Yeast Cancelled Urine Sperm Cancelled Ur Oval Fat Bodies Cancelled COVID-19 ([facility]) COVID-19 Clin Com 05/04/21 05/05/21 05/05/21 23:59 00:00 00:50 MCV MCH MCHC RDW Plt Count MPV Immature Gran % (Auto) Neut % (Auto) Lymph % (Auto) [place] % (Auto) Eos % (Auto) Baso % (Auto) Lymph # (Auto) [place] # (Auto) Eos # (Auto) Baso # (Auto) Abs Immat Gran (auto) Absolute Neuts (auto) Absolute Nucleated RBC Nucleated RBC % (auto) Neutrophils % (Manual) Band Neutrophils % Lymphocytes % (Manual) Monocytes % (Manual) Metamyelocytes % Myelocytes % Abs Neuts (Manual) Lymphocytes # (Manual) Monocytes # (Manual) Metamyelocytes # Myelocytes # Nucleated RBCs Toxic Vacuolation Dohle Bodies Platelet Estimate Large Platelets Plt Morphology Comment RBC Morphology Hypochromasia Anion Gap Estim Creat Clear Calc Estimated GFR POC Glucose 153 H Random Glucose Lactic Acid Lactic Acid F/U @ 2Hr Calcium Magnesium Total Bilirubin Direct Bilirubin AST ALT Alkaline Phosphatase B-Natriuretic Peptide 55 Total Protein Albumin Lipase TSH Urine Color Urine Appearance Urine pH Ur Specific [place] Urine Protein Urine Glucose (UA) Urine Ketones Urine Blood Urine Nitrite Ur Leukocyte Esterase Urine RBC Urine WBC Urine WBC Clumps Ur Squamous Epith Cells Ur Renal Epithelial Cell [place] Biurate Crystals Calcium Carbonate Cryst Calcium Phosphate Cryst Calcium Oxalate Crystal Leucine Crystals Cystine Crystals Uric Acid Crystals Triple Phos Crystals Talc Crystals Tyrosine Crystals Other Crystals Amorphous Sediment Urine Bacteria Epithelial Casts Fatty Casts Hyaline Casts Granular Casts Waxy Casts RBC Casts WBC Casts Other Casts Urine Mucus Urine Trichomonas Urine Yeast Urine Sperm Ur Oval Fat Bodies COVID-19 ([facility]) Negative COVID-19 Clin Com See Note Imaging Radiologist's Impressions: Impressions Abdomen/Pelvis CT 05/04/21 18:10 IMPRESSION: The lack of intravenous contrast limits evaluation of the solid visceral organs including the liver, spleen, pancreas, and kidneys. 1. Cirrhotic liver with portal hypertension and moderate volume of ascites. 2. There is wall thickening of the stomach, proximal duodenum, ascending colon and hepatic flexure. These are nonspecific but potentially related with portal hypertensive gastroenteropathy. 3. In the duodenal bulb, there is irregularity of the wall with small scattered outpouchings in which ulcerations cannot be excluded. If indicated, correlation with an upper endoscopy could be obtained. 4. Nonobstructive renal calculi. 5. Postsurgical changes in the right lower abdominal wall with recurrent fat-containing herniation. 6. Small left pleural effusion. Abdomen Ultrasound 05/04/21 19:20 FINDINGS/IMPRESSION: The gallbladder is better appreciated on the CT from earlier today, as this ultrasound is limited due to shadowing from overlying bowel gas and patient body habitus. However, despite these limitations, there is no significant wall thickening (0.2 cm in thickness) and there is no evidence of stones. In this ultrasound there is no evidence of gallbladder sludge but this is likely related to limitations of the study, please refer to the recent CT. The common bile duct measures 0.4 cm. There is redemonstration of ascites. Assessment and Plan (1) Hepatitis: Status: Acute (2) UTI (urinary tract infection): Status: Acute (3) Ascites of liver: Status: Acute (4) Swelling of lower extremity: Status: Acute (5) Nausea vomiting and diarrhea: Status: Acute Plan 50-year-old female with past medical history of liver cirrhosis secondary to cured hepatitis-C, hypertension, rheumatoid arthritis, hypothyroidism, Crohn's disease status post bowel resection x2 in the past who presents to the hospital with complaints of urinary symptoms, nausea, vomiting and diarrhea. # Acute hepatitis/transmanitis - possibly secondary to viral hepatitis vs 2/2 cholecystitis less likely - has elevated LFTs, alk phos - no evidence of cholecystitis on CT abdomen or ultrasound - patient afebrile, but has mild leukocytosis - hepatitis panel pending - GI consulted # UTI - failed outpatient therapy with Macrobid - will treat with ceftriaxone - follow urine cultures # nausea vomiting and diarrhea - possibly secondary to viral gastritis versus secondary to portal hypertensive gastropathy - will rule out C diff - supportive measures - GI and consult # lower extremity edema - likely secondary to low albumin - patient has no orthopnea or PND, edema is nonpitting - monitor # hypothyroidism - continue levothyroxine # history of opioid use disorder - continue methadone DVT prophylaxis: Lovenox Given her acute hepatitis/transaminitis as well as failed outpatient therapy for UTI will need admissin for IV abx Quality Stroke Does the patient have a stroke diagnosis?: No VTE Prior VTE?: No VTE Risk Level:: Medical - moderate - high VTE Device Contraindication: Treatment Not Indicated VTE Drug Contraindication: N/A - Med Ordered
[2021-05-05 06:44] LABS: Glucose, Whole Blood 123 mg/dL (60-115)
--- NOTE | 2021-05-05 07:05 | PM.GICN ---
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 Presents here with assorted symptoms incl nausea, non bloody emesis, urine freq with diarrhea most recently. she had been on a couse of macrobid before admission for UTI which she took for one week. She also has suprapubic pain and pain in thr RUQ. 11/23, nonradiating, not associated with eating. She seemed to be better for a day or two after finishing the macrobid but then had recurrence of her urine and the other sx mentioned above. She has also noted swelling in her legs bilaterally, she is short of breath on exertion, denies having cough or sputum.? No PND or orthopnea. she denies drug use or alcohol use for many years. No herbal use. Labs: WBC count of 12.5, hemoglobin of 8.6 , lactic acid of 3.2, total bili of 4.51 previously in April it was normal, AST of 75 increased from 30/2, ALT of 57, alk-phos of 205, UA positive for leukocyte Estrace and WBC as well as urine RBC.? Abdominal pelvic CT:cirrhotic liver with portal hypertension and moderate volume of ascites, non specific wall thickening of stomach proximal duodenum ascending colon and hepatic flexure, duodenal bulb irregularity, Nonobstructing renal calculi, Review of Systems Review of Systems: Constitutional : No Weight loss, ENT/Mouth : No sore throat, No Rhinorrhea Eyes: No Swelling, No Redness Cardiovascular : No Chest Pain, + Edema Respiratory : No Cough, No Sputum, No Wheezing Gastrointestinal : see HPI Genitourinary : as above Musculoskeletal : No joint pain, No Myalgias, No Joint Swelling Skin : No Skin Lesions, No rash Neuro : + Weakness, No Numbness, No Dizziness, No Headache Psych : No Anxiety/Panic, No Depression Heme/Lymph: No Bruising, No Lymphadenopathy Endocrine : No Polyuria, No Polydipsia All other systems reviewed and are negative. 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 Other Mental health disorder Substance use disorder Surgical History Surgical History History of appendectomy History of bowel resection History of hernia repair Social History Social History Household Members: None Housing: Apartment Do you presently have visiting nurse or other home services: No Patient Tobacco Use Status: Current someday Tobacco user Tobacco use type: Cigarette Cigarettes Per Day: 4 Years Smoked: 17 years old Current occupational status: employed [employer] Allergies Allergy/AdvReac Type Severity Reaction Status Date / Time ciprofloxacin [Cipro] Allergy Unknown swelling Verified 04/17/21 15:29 of the throat , hives Active Medications: Current Medications Acetaminophen (Acetaminophen 325 Mg Tablet) 650 mg PO Q8H PRN PRN Reason: Pain, Mild (Pain Scale 1-3) Last Admin: 05/05/21 06:05 Dose: 650 mg Documented by: Acyclovir (Acyclovir 200 Mg Capsule) 400 mg PO DAILY [facility] Atorvastatin Calcium (Atorvastatin Calcium 10 Mg Tablet) 5 mg PO BEDTIME [facility] Dextrose (Dextrose 50 % 25 Gm/50 Ml Vial) 25 gm IVPUSH Q15M PRN; Protocol PRN Reason: per Hypoglycemia Standing Ord. Docusate Sodium (Docusate Sodium 100 Mg Capsule) 100 mg PO DAILY PRN PRN Reason: Constipation Enoxaparin Sodium (Enoxaparin Sodium 40 Mg/0.4 Ml Syringe) 40 mg SUBCUT Q24H [facility] Last Admin: 05/05/21 02:00 Dose: 40 mg Documented by: Furosemide (Furosemide 20 Mg Tablet) 20 mg PO DAILY [facility]; Protocol Last Admin: 05/05/21 02:00 Dose: 20 mg Documented by: Glucose (Glucose Gel 15 Gm Gel..Gram.) 15 gm PO Q15M PRN; Protocol PRN Reason: per Hypoglycemia Standing Ord. Ceftriaxone Sodium 1 gm/ (Sodium Chloride) 50 mls @ 100 mls/hr IV Q24H [facility] Last Infusion: 05/05/21 04:09 Dose: Infused Documented by: Insulin Human Lispro (Insulin Lispro 100 Unit/Ml 3 Ml Vial) 0 unit SUBCUT QIDACHS [facility]; Protocol Levothyroxine Sodium (Levothyroxine Sodium 50 Mcg Tablet) 50 mcg PO DAILY@0600 [facility] Last Admin: 05/05/21 06:05 Dose: 50 mcg Documented by: Methadone HCl (Methadone Hcl 20 Mg/2 Ml Oral.Conc) 70 mg PO DAILY [facility] Metoprolol Succinate (Metoprolol Succinate Er 50 Mg Tab.Er.24h) 50 mg PO DAILY [facility]; Protocol Metronidazole (Metronidazole 500 Mg Tablet) 500 mg PO Q8H [facility] Nitrofurantoin Macrocrystals (Nitrofurantoin Monohyd/M-Cryst 100 Mg Capsule) 100 mg PO Q12H [facility] Last Admin: 05/05/21 02:00 Dose: 100 mg Documented by: Non-Formulary Medication (Tofacitinib) 5 mg PO BID [facility] Non-Formulary Medication (Metronidazole [Metrogel]) 1 appl TOPICAL BEDTIME [facility] Omeprazole (Omeprazole 40 Mg Capsule.Dr) 40 mg PO DAILY [facility] Sodium Chloride (0.9 % Sodium Chloride Flush 3 Ml Syringe) 3 ml IVFLUSH QSHIFT [facility] Last Admin: 05/05/21 02:01 Dose: 3 ml Documented by: Home Medications Medication Instructions Recorded Confirmed Last Taken Type celecoxib 200 mg capsule 200 mg PO 11/30/19 04/17/21 Unknown History tofacitinib 5 mg tablet 5 mg PO BID 11/30/19 05/04/21 Unknown History methadone 10 mg/mL oral concentrate 71 mg PO DAILY 05/04/21 05/04/21 Unknown History Physical Exam Vital Signs: Vital Signs: Last Vital Signs Temp 98.4 F 05/05/21 06:08 Pulse 112 H 05/05/21 06:38 Resp 15 05/05/21 06:38 BP 134/76 05/05/21 06:08 Pulse Ox 95 05/05/21 06:38 BMI result Body Mass Index 35.4 Const: Other: Patient appears ill, shaking General: cooperative and no acute distress Orientation/consciousness: patient oriented x3 HEENT: Other: Normocephalic atraumatic. Mucosa very dry Eyes: General: appearance normal, both eyes and all related structures Neck: Other: Neck tenderness to palpation over left lateral scalene which reproduces symptoms. Positive muscle spasm focally. No trapezius spasm Resp: Other: Clear and equal bilaterally without wheezes rales rhonchi Effort & Inspection: normal respiratory effort Auscultation: clear to auscultation bilaterally Cardio: Other: Tachycardic at 130 beats per minute. No murmurs rubs or gallops Rate: regular rate Rhythm: regular rhythm GI: Other: Has some suprapubic tenderness Palpation (GI): Soft to palpation Auscultation: normal bowel sounds : Other: No flank pain Skin: Other: Warm and dry without rash. Poor turgor General skin exam: no rashes or lesions noted Neuro: Other: Nonfocal General: patient oriented x3 Extrem: General: Yes normal to inspection and Yes no pedal edema Results Labs CBC & Chem 7: 05/05/21 08:06 05/05/21 08:06 Labs: Short CBC 05/04/21 Range/Units 17:33 WBC 12.5 H (4.8-10.8) X10*3/uL Hgb 8.6 L (12.0-16.0) g/dl Hct 26.3 L (37.0-47.0) % Plt Count 26 L (160-400) X10*3/uL BMP 05/04/21 17:34 Sodium 137 Potassium 4.6 Chloride 105 Carbon Dioxide 21 L BUN 31 H D Creatinine 0.87 Calcium 8.1 L D Liver Function 05/04/21 Range/Units 17:34 Total Bilirubin 4.5 H (0.0-1.0) mg/dL Direct Bilirubin 3.2 H (0.0-0.5) mg/dL AST 75 H (5-31) U/L ALT 57 H (0-31) U/L Alkaline Phosphatase 205 H D (39-117) U/L Albumin 2.6 L D (3.5-5.0) g/dL Urine 05/04/21 05/04/21 Range/Units 12:15 21:33 Urine Color DK YELLOW Cancelled Urine Appearance CLOUDY Cancelled Urine pH 5.5 Cancelled (5.0-8.0) Ur Specific [place] 1.020 Cancelled (1.005-1.025) Urine Protein NEG Cancelled (NEG-TRACE) MG/DL Urine Glucose (UA) NEG Cancelled (NEG) MG/DL Imaging CT scan - abdomen: My impression: thickened and swollen duodenum, cirrhotic liver, splenomegaly, ascites Assessment and Plan (1) Hepatitis: Status: Acute (2) Ascites of liver: Status: Acute (3) Liver cirrhosis: Status: Acute Plan 1/ cirrhosis with acute worsening of LFT, maybe due to sepsis, or more likely DILI from macrobid use which can also cause an autoimmune type picture, vs natural decompensation of cirrhosis, PSC related to IBD, autoimmune hepatitis 2/ anemia, likely chronic, no evidence of overt GI bleeding right now PLAN: 1/ check AMA< CATERINA, SMA, Igg levels, acetaminophen 2/ treat underlying UTI, avoid hepatotoxic drugs icnl NSAIDS 3/ tap ascites and check for SBP 4/ Us doppler to r/o april pham 5/ Hold on diuretics for the moment, she may need steroids, would give her NAC, so evidence may help no acetaminophen drug toxicity 6/ If Liver function cnts to worsen then may [facility], monitor INR BID, vit K 10 mg IV for 3 days Procedures Date of Service Date of Service: 05/05/21
[2021-05-05 08:50] LABS: Glucose, Whole Blood 158 mg/dL (60-115)
[2021-05-05 08:52] LABS: Hematocrit 24.6 % (37.0-47.0); Hemoglobin 7.6 g/dl (12.0-16.0); Mean Corpuscular HGB Conc 30.9 g/dl (31.0-35.0); Mean Corpuscular Hemoglobin 28.3 pg (27.0-33.0); Mean Corpuscular Volume 91.4 fL (80.0-98.0); NRBC Pct Auto 0.4 /100WBC (0.0-0.2); Red Blood Count 2.69 X10*6/uL (4.20-5.50); Red Cell Distribution Width 18.4 % (11.0-16.0); White Blood Count 10.4 X10*3/uL (4.8-10.8)
[2021-05-05 08:54] LABS: Platelet Count 39 X10*3/uL (160-400)
[2021-05-05] MEDS: methADONE HCl 20 MG/2 ML ORAL.CONC 70 MG PO (08:56)
[2021-05-05] MEDS: Insulin Lispro 100 UNIT/ML 3 ML VIAL SUBCUT ×4 (08:57→20:11)
[2021-05-05] MEDS: Metoprolol Succinate ER 50 MG TAB.ER.24H PO (08:57)
[2021-05-05] MEDS: Omeprazole 40 MG CAPSULE.DR PO (08:57)
[2021-05-05] MEDS: metroNIDAZOLE 500 MG TABLET PO ×3 (08:57→23:21)
[2021-05-05] MEDS: Acyclovir 200 MG CAPSULE 400 MG PO (08:57)
[2021-05-05 09:04] LABS: Anion Gap 13 (12-20); Blood Urea Nitrogen 30 mg/dL (9-16); Calcium 7.8 mg/dL (8.4-10.2); Carbon Dioxide 25 mmol/L (22-29); Chloride 106 mmol/L (96-108); Creatinine Clr Calc Pharmacy 82.7; Estimated Glomerular Filt Rate > 60; Glucose Random 121 mg/dL (60-115); Potassium 4.4 mmol/L (3.3-5.1); Sodium 140 mmol/L (135-145)
[2021-05-05 09:18] LABS: Band Neutrophils Percent 12 % (3-5); Lymphocytes Absolute Manual 0.1 X10*3/uL (1.2-4.9); Lymphocytes Percent Manual 1 % (20-40); Metamyelocytes Absolute 0.1 X10*3/uL; Metamyelocytes Percent 1 %; Monocytes Absolute Manual 0.1 X10*3/uL (0.1-1.2); Monocytes Percent Manual 1 % (2-11); Neutrophils Absolute Manual 10.1 X10*3/uL (2.0-8.3); Neutrophils Percent Manual 85 % (45-73)
[2021-05-05 09:19] LABS: Acanthocytes 1+ (0-2) /OIF; Hypochromasia 1+ (5-14) /OIF; Ovalocytes 1+ (5-14) /OIF; RBC Morphology NOTED; Toxic Vacuolation PRESENT
[2021-05-05 09:20] LABS: Dohle Bodies PRESENT; Platelet Estimate DECREASED (NORMAL); Platelet Morphology Comment NORMAL
[2021-05-05 11:34] LABS: Glucose, Whole Blood 167 mg/dL (60-115)
--- NOTE | 2021-05-05 15:33 | HO.PM.IMPN ---
Subjective Subjective Date of Service: 05/05/21 Interval History: No acute issues overnight Review of Systems denies chest pain Denies shortness of breath Denies nausea vomiting diarrhea Physical Exam Vital Signs: Vital Signs: Last Vital Signs Temp 98.4 F 05/05/21 12:00 Pulse 87 05/05/21 12:00 Resp 18 05/05/21 12:00 BP 115/63 05/05/21 12:00 Pulse Ox 93 05/05/21 12:00 BMI result Body Mass Index 35.4 Const: Other: no acute distress Eyes: Other: anicteric Resp: Other: clear to auscultation bilaterally no rales rhonchi or wheezes Cardio: Other: no S4; positive S1-S2; no S3 murmurs rubs or gallops GI: Other: soft nontender nondistended normoactive bowel sounds Extrem: Other: no edema bilaterally Objective Data Active Medications Acetaminophen (Acetaminophen 325 Mg Tablet) 650 mg PO Q8H PRN PRN Reason: Pain, Mild (Pain Scale 1-3) Last Admin: 05/05/21 06:05 Dose: 650 mg Documented by: MIRNA Acyclovir (Acyclovir 200 Mg Capsule) 400 mg PO DAILY [facility] Last Admin: 05/05/21 08:57 Dose: 400 mg Documented by: GARCIA Atorvastatin Calcium (Atorvastatin Calcium 10 Mg Tablet) 5 mg PO BEDTIME [facility] Dextrose (Dextrose 50 % 25 Gm/50 Ml Vial) 25 gm IVPUSH Q15M PRN; Protocol PRN Reason: per Hypoglycemia Standing Ord. Docusate Sodium (Docusate Sodium 100 Mg Capsule) 100 mg PO DAILY PRN PRN Reason: Constipation Enoxaparin Sodium (Enoxaparin Sodium 40 Mg/0.4 Ml Syringe) 40 mg SUBCUT Q24H [facility] Last Admin: 05/05/21 02:00 Dose: 40 mg Documented by: MIRNA Furosemide (Furosemide 20 Mg Tablet) 20 mg PO DAILY [facility]; Protocol Last Admin: 05/05/21 08:57 Dose: 20 mg Documented by: GARCIA Glucose (Glucose Gel 15 Gm Gel..Gram.) 15 gm PO Q15M PRN; Protocol PRN Reason: per Hypoglycemia Standing Ord. Ceftriaxone Sodium 1 gm/ (Sodium Chloride) 50 mls @ 100 mls/hr IV Q24H [facility] Last Infusion: 05/05/21 04:09 Dose: 0 mls/hr Documented by: MIRNA Insulin Human Lispro (Insulin Lispro 100 Unit/Ml 3 Ml Vial) 0 unit SUBCUT QIDACHS [facility]; Protocol Last Admin: 05/05/21 11:57 Dose: 2 unit Documented by: GARCIA Levothyroxine Sodium (Levothyroxine Sodium 50 Mcg Tablet) 50 mcg PO DAILY@0600 [facility] Last Admin: 05/05/21 06:05 Dose: 50 mcg Documented by: MIRNA Methadone HCl (Methadone Hcl 20 Mg/2 Ml Oral.Conc) 70 mg PO DAILY [facility] Last Admin: 05/05/21 08:56 Dose: 70 mg Documented by: GARCIA Metoprolol Succinate (Metoprolol Succinate Er 50 Mg Tab.Er.24h) 50 mg PO DAILY [facility]; Protocol Last Admin: 05/05/21 08:57 Dose: 50 mg Documented by: GARCIA Metronidazole (Metronidazole 500 Mg Tablet) 500 mg PO Q8H [facility] Last Admin: 05/05/21 08:57 Dose: 500 mg Documented by: GARCIA Non-Formulary Medication (Tofacitinib) 5 mg PO BID [facility] Non-Formulary Medication (Metronidazole [Metrogel]) 1 appl TOPICAL BEDTIME [facility] Omeprazole (Omeprazole 40 Mg Capsule.Dr) 40 mg PO DAILY [facility] Last Admin: 05/05/21 08:57 Dose: 40 mg Documented by: GARCIA Sodium Chloride (0.9 % Sodium Chloride Flush 3 Ml Syringe) [facility] Last Admin: 05/05/21 09:05 Dose: 3 ml Documented by: GARCIA Labs CBC & Chem 7: 05/05/21 08:06 05/05/21 08:06 Labs: Laboratory Results - last 24 hr 05/04/21 05/04/21 05/04/21 17:33 17:34 18:55 MCV 89.5 MCH 29.3 MCHC 32.7 RDW 18.0 H Plt Count 26 L MPV Not Reportable Immature Gran % (Auto) Cancelled Neut % (Auto) Cancelled Lymph % (Auto) Cancelled [place] % (Auto) Cancelled Eos % (Auto) Cancelled Baso % (Auto) Cancelled Lymph # (Auto) Cancelled [place] # (Auto) Cancelled Eos # (Auto) Cancelled Baso # (Auto) Cancelled Abs Immat Gran (auto) Cancelled Absolute Neuts (auto) Cancelled Absolute Nucleated RBC 0.040 H Nucleated RBC % (auto) 0.3 H Neutrophils % (Manual) 74 H Band Neutrophils % 12 H Lymphocytes % (Manual) 2 L Monocytes % (Manual) 10 Metamyelocytes % 1 Myelocytes % 1 Abs Neuts (Manual) 10.8 H Lymphocytes # (Manual) 0.3 L Monocytes # (Manual) 1.3 H Metamyelocytes # 0.1 Myelocytes # 0.1 Nucleated RBCs 1 H Toxic Vacuolation PRESENT Dohle Bodies PRESENT Platelet Estimate DECREASED Large Platelets PRESENT Plt Morphology Comment NOTED RBC Morphology NOTED Hypochromasia 1+ (5-14) Ovalocytes Acanthocytes (Spur) Smear Path Review SEE NOTE Anion Gap 16 Estim Creat Clear Calc 82.7 Estimated GFR > 60 POC Glucose Random Glucose 184 H Lactic Acid 3.2 H* Lactic Acid F/U @ 2Hr Calcium 8.1 L D Magnesium 2.3 Total Bilirubin 4.5 H Direct Bilirubin 3.2 H AST 75 H ALT 57 H Alkaline Phosphatase 205 H D B-Natriuretic Peptide Total Protein 5.6 L Albumin 2.6 L D Lipase 70 TSH 0.75 Urine Color Urine Appearance Urine pH Ur Specific [place] Urine Protein Urine Glucose (UA) Urine Ketones Urine Blood Urine Nitrite Ur Leukocyte Esterase Urine RBC Urine WBC Urine WBC Clumps Ur Squamous Epith Cells Ur Renal Epithelial Cell Ayan Biurate Crystals Calcium Carbonate Cryst Calcium Phosphate Cryst Calcium Oxalate Crystal Leucine Crystals Cystine Crystals Uric Acid Crystals Triple Phos Crystals Talc Crystals Tyrosine Crystals Other Crystals Amorphous Sediment Urine Bacteria Epithelial Casts Fatty Casts Hyaline Casts Granular Casts Waxy Casts RBC Casts WBC Casts Other Casts Urine Mucus Urine Trichomonas Urine Yeast Urine Sperm Ur Oval Fat Bodies COVID-19 ([facility]) COVID-19 Clin Com 05/04/21 05/04/21 05/04/21 21:33 23:34 23:59 MCV MCH MCHC RDW Plt Count MPV Immature Gran % (Auto) Neut % (Auto) Lymph % (Auto) [place] % (Auto) Eos % (Auto) Baso % (Auto) Lymph # (Auto) [place] # (Auto) Eos # (Auto) Baso # (Auto) Abs Immat Gran (auto) Absolute Neuts (auto) Absolute Nucleated RBC Nucleated RBC % (auto) Neutrophils % (Manual) Band Neutrophils % Lymphocytes % (Manual) Monocytes % (Manual) Metamyelocytes % Myelocytes % Abs Neuts (Manual) Lymphocytes # (Manual) Monocytes # (Manual) Metamyelocytes # Myelocytes # Nucleated RBCs Toxic Vacuolation Dohle Bodies Platelet Estimate Large Platelets Plt Morphology Comment RBC Morphology Hypochromasia Ovalocytes Acanthocytes (Spur) Smear Path Review Anion Gap Estim Creat Clear Calc Estimated GFR POC Glucose Random Glucose Lactic Acid Lactic Acid F/U @ 2Hr 2.0 Calcium Magnesium Total Bilirubin Direct Bilirubin AST ALT Alkaline Phosphatase B-Natriuretic Peptide Total Protein Albumin Lipase TSH Urine Color Cancelled Urine Appearance Cancelled Urine pH Cancelled Ur Specific [place] Cancelled Urine Protein Cancelled Urine Glucose (UA) Cancelled Urine Ketones Cancelled Urine Blood Cancelled Urine Nitrite Cancelled Ur Leukocyte Esterase Cancelled Urine RBC Cancelled Urine WBC Cancelled Urine WBC Clumps Cancelled Ur Squamous Epith Cells Cancelled Ur Renal Epithelial Cell Cancelled Ayan Biurate Crystals Cancelled Calcium Carbonate Cryst Cancelled Calcium Phosphate Cryst Cancelled Calcium Oxalate Crystal Cancelled Leucine Crystals Cancelled Cystine Crystals Cancelled Uric Acid Crystals Cancelled Triple Phos Crystals Cancelled Talc Crystals Cancelled Tyrosine Crystals Cancelled Other Crystals Cancelled Amorphous Sediment Cancelled Urine Bacteria Cancelled Epithelial Casts Cancelled Fatty Casts Cancelled Hyaline Casts Cancelled Granular Casts Cancelled Waxy Casts Cancelled RBC Casts Cancelled WBC Casts Cancelled Other Casts Cancelled Urine Mucus Cancelled Urine Trichomonas Cancelled Urine Yeast Cancelled Urine Sperm Cancelled Ur Oval Fat Bodies Cancelled COVID-19 (PHILOMENA) Negative COVID-19 Clin Com See Note 05/05/21 05/05/21 05/05/21 00:00 00:50 06:39 MCV MCH MCHC RDW Plt Count MPV Immature Gran % (Auto) Neut % (Auto) Lymph % (Auto) [place] % (Auto) Eos % (Auto) Baso % (Auto) Lymph # (Auto) [place] # (Auto) Eos # (Auto) Baso # (Auto) Abs Immat Gran (auto) Absolute Neuts (auto) Absolute Nucleated RBC Nucleated RBC % (auto) Neutrophils % (Manual) Band Neutrophils % Lymphocytes % (Manual) Monocytes % (Manual) Metamyelocytes % Myelocytes % Abs Neuts (Manual) Lymphocytes # (Manual) Monocytes # (Manual) Metamyelocytes # Myelocytes # Nucleated RBCs Toxic Vacuolation Dohle Bodies Platelet Estimate Large Platelets Plt Morphology Comment RBC Morphology Hypochromasia Ovalocytes Acanthocytes (Spur) Smear Path Review Anion Gap Estim Creat Clear Calc Estimated GFR POC Glucose 153 H 123 H Random Glucose Lactic Acid Lactic Acid F/U @ 2Hr Calcium Magnesium Total Bilirubin Direct Bilirubin AST ALT Alkaline Phosphatase B-Natriuretic Peptide 55 Total Protein Albumin Lipase TSH Urine Color Urine Appearance Urine pH Ur Specific [place] Urine Protein Urine Glucose (UA) Urine Ketones Urine Blood Urine Nitrite Ur Leukocyte Esterase Urine RBC Urine WBC Urine WBC Clumps Ur Squamous Epith Cells Ur Renal Epithelial Cell Ayan Biurate Crystals Calcium Carbonate Cryst Calcium Phosphate Cryst Calcium Oxalate Crystal Leucine Crystals Cystine Crystals Uric Acid Crystals Triple Phos Crystals Talc Crystals Tyrosine Crystals Other Crystals Amorphous Sediment Urine Bacteria Epithelial Casts Fatty Casts Hyaline Casts Granular Casts Waxy Casts RBC Casts WBC Casts Other Casts Urine Mucus Urine Trichomonas Urine Yeast Urine Sperm Ur Oval Fat Bodies COVID-19 (PHILOMENA) COVID-19 Clin Com 05/05/21 05/05/21 05/05/21 08:06 08:06 08:45 MCV 91.4 MCH 28.3 MCHC 30.9 L RDW 18.4 H Plt Count 39 L D MPV Not Reportable Immature Gran % (Auto) Cancelled Neut % (Auto) Cancelled Lymph % (Auto) Cancelled [place] % (Auto) Cancelled Eos % (Auto) Cancelled Baso % (Auto) Cancelled Lymph # (Auto) Cancelled [place] # (Auto) Cancelled Eos # (Auto) Cancelled Baso # (Auto) Cancelled Abs Immat Gran (auto) Cancelled Absolute Neuts (auto) Cancelled Absolute Nucleated RBC 0.040 H Nucleated RBC % (auto) 0.4 H Neutrophils % (Manual) 85 H Band Neutrophils % 12 H Lymphocytes % (Manual) 1 L Monocytes % (Manual) 1 L Metamyelocytes % 1 Myelocytes % Abs Neuts (Manual) 10.1 H Lymphocytes # (Manual) 0.1 L Monocytes # (Manual) 0.1 Metamyelocytes # 0.1 Myelocytes # Nucleated RBCs Toxic Vacuolation PRESENT Dohle Bodies PRESENT Platelet Estimate DECREASED Large Platelets Plt Morphology Comment NORMAL RBC Morphology NOTED Hypochromasia 1+ (5-14) Ovalocytes 1+ (5-14) Acanthocytes (Spur) 1+ (0-2) Smear Path Review Anion Gap 13 Estim Creat Clear Calc 82.7 Estimated GFR > 60 POC Glucose 158 H Random Glucose 121 H Lactic Acid Lactic Acid F/U @ 2Hr Calcium 7.8 L Magnesium Total Bilirubin Direct Bilirubin AST ALT Alkaline Phosphatase B-Natriuretic Peptide Total Protein Albumin Lipase TSH Urine Color Urine Appearance Urine pH Ur Specific [place] Urine Protein Urine Glucose (UA) Urine Ketones Urine Blood Urine Nitrite Ur Leukocyte Esterase Urine RBC Urine WBC Urine WBC Clumps Ur Squamous Epith Cells Ur Renal Epithelial Cell [place] Biurate Crystals Calcium Carbonate Cryst Calcium Phosphate Cryst Calcium Oxalate Crystal Leucine Crystals Cystine Crystals Uric Acid Crystals Triple Phos Crystals Talc Crystals Tyrosine Crystals Other Crystals Amorphous Sediment Urine Bacteria Epithelial Casts Fatty Casts Hyaline Casts Granular Casts Waxy Casts RBC Casts WBC Casts Other Casts Urine Mucus Urine Trichomonas Urine Yeast Urine Sperm Ur Oval Fat Bodies COVID-19 (PHILOMENA) COVID-19 Clin Com 05/05/21 11:30 MCV MCH MCHC RDW Plt Count MPV Immature Gran % (Auto) Neut % (Auto) Lymph % (Auto) [place] % (Auto) Eos % (Auto) Baso % (Auto) Lymph # (Auto) [place] # (Auto) Eos # (Auto) Baso # (Auto) Abs Immat Gran (auto) Absolute Neuts (auto) Absolute Nucleated RBC Nucleated RBC % (auto) Neutrophils % (Manual) Band Neutrophils % Lymphocytes % (Manual) Monocytes % (Manual) Metamyelocytes % Myelocytes % Abs Neuts (Manual) Lymphocytes # (Manual) Monocytes # (Manual) Metamyelocytes # Myelocytes # Nucleated RBCs Toxic Vacuolation Dohle Bodies Platelet Estimate Large Platelets Plt Morphology Comment RBC Morphology Hypochromasia Ovalocytes Acanthocytes (Spur) Smear Path Review Anion Gap Estim Creat Clear Calc Estimated GFR POC Glucose 167 H Random Glucose Lactic Acid Lactic Acid F/U @ 2Hr Calcium Magnesium Total Bilirubin Direct Bilirubin AST ALT Alkaline Phosphatase B-Natriuretic Peptide Total Protein Albumin Lipase TSH Urine Color Urine Appearance Urine pH Ur Specific [place] Urine Protein Urine Glucose (UA) Urine Ketones Urine Blood Urine Nitrite Ur Leukocyte Esterase Urine RBC Urine WBC Urine WBC Clumps Ur Squamous Epith Cells Ur Renal Epithelial Cell Ayan Biurate Crystals Calcium Carbonate Cryst Calcium Phosphate Cryst Calcium Oxalate Crystal Leucine Crystals Cystine Crystals Uric Acid Crystals Triple Phos Crystals Talc Crystals Tyrosine Crystals Other Crystals Amorphous Sediment Urine Bacteria Epithelial Casts Fatty Casts Hyaline Casts Granular Casts Waxy Casts RBC Casts WBC Casts Other Casts Urine Mucus Urine Trichomonas Urine Yeast Urine Sperm Ur Oval Fat Bodies COVID-19 (PHILOMENA) COVID-19 Clin Com Microbiology Microbiology Results: Microbiology 05/05/21 03:06 Blood Culture - Preliminary Blood - Venous Prelim: GNR Gram Stain only 05/04/21 00:00 Urine Culture - Preliminary Urine clean catch - Urine hernandez top Gram negative shalom Assessment and Plan (1) Hepatitis: Status: Acute (2) UTI (urinary tract infection): Status: Acute (3) Hypothyroidism: Status: Acute Plan 50-year-old female with past medical history of liver cirrhosis secondary to cured hepatitis-C, hypertension, rheumatoid arthritis, hypothyroidism, Crohn's disease status post bowel resection x2 in the past who presents to the hospital with complaints of urinary symptoms, nausea, vomiting and diarrhea. 1.Acute hepatitis/transmanitis - GI consulted -recommends NAC...discussed with pharmacy -will check BID INRs 2. UTI - will treat with ceftriaxone - follow urine cultures 3.Hypothyroidism - continue levothyroxine 4.History of opioid use disorder - continue methadone DVT prophylaxis: Lovenox patient will likely require 2 midnights going forward to treat acute on chronic liver failure with issue will cystine IV Quality Stroke Does the patient have a stroke diagnosis?: No VTE Prior VTE?: No VTE Risk Level:: Medical - moderate - high VTE Device Contraindication: Treatment Not Indicated VTE Drug Contraindication: N/A - Med Ordered
[2021-05-05 16:42] LABS: Glucose, Whole Blood 188 mg/dL (60-115)
[2021-05-05 19:02] LABS: INTERNATIONAL NORM RATIO 4.4 (0.9-1.1)
[2021-05-05 20:05] LABS: Glucose, Whole Blood 221 mg/dL (60-115)
[2021-05-05] MEDS: Atorvastatin Calcium 10 MG TABLET 5 MG PO (20:11)
[2021-05-06] MEDS: 0.9 % Sodium Chloride Flush 3 ML SYRINGE IVFLUSH ×2 (01:32→19:17)
[2021-05-06] MEDS: cefTRIAXone sodium 1 GM in 0.9 % Sodium Chloride 50 ML IV (01:32)
[2021-05-06] MEDS: Enoxaparin Sodium 40 MG/0.4 ML SYRINGE SUBCUT (01:32)
[2021-05-06] MEDS: Acetaminophen 325 MG TABLET 650 MG PO ×2 (01:32→12:23)
[2021-05-06 03:36] VITALS: BP 136/62; PULSE 93; RESP 18; TEMP 36.9; O2SAT 94
[2021-05-06] MEDS: Levothyroxine Sodium 50 MCG TABLET PO (05:47)
[2021-05-06] MEDS: oxyCODONE HCl Immed Release 5 MG TABLET PO (05:47)
[2021-05-06] MEDS: metroNIDAZOLE 500 MG TABLET PO (05:47)
[2021-05-06 05:59] LABS: Hemoglobin 7.4 g/dl (12.0-16.0)
[2021-05-06 06:01] LABS: Hematocrit 23.5 % (37.0-47.0); Mean Corpuscular HGB Conc 31.5 g/dl (31.0-35.0); Mean Corpuscular Hemoglobin 28.4 pg (27.0-33.0); NRBC Pct Auto 0.1 /100WBC (0.0-0.2); Red Blood Count 2.61 X10*6/uL (4.20-5.50); Red Cell Distribution Width 18.2 % (11.0-16.0); White Blood Count 14.7 X10*3/uL (4.8-10.8)
[2021-05-06 06:06] LABS: PLT ABN DIST 1; Platelet Count 41 X10*3/uL (160-400)
[2021-05-06 06:18] LABS: Prothrombin Time 94.3 SEC (9.9-13.0)
[2021-05-06 06:24] LABS: Band Neutrophils Percent 2 % (3-5); Lymphocytes Absolute Manual 0.3 X10*3/uL (1.2-4.9); Lymphocytes Percent Manual 2 % (20-40); Monocytes Absolute Manual 0.4 X10*3/uL (0.1-1.2); Monocytes Percent Manual 3 % (2-11); Neutrophils Percent Manual 93 % (45-73)
[2021-05-06 06:25] LABS: RBC Morphology NOTED; Toxic Granulation PRESENT; Toxic Vacuolation PRESENT
[2021-05-06 06:25] LABS: Alanine Aminotransferase 62 U/L (0-31); Albumin Level 2.2 g/dL (3.5-5.0); Alkaline Phosphatase 196 U/L (39-117); Anion Gap 16 (12-20); Aspartate Amino Transferase 78 U/L (5-31); Bilirubin Total 4.7 mg/dL (0.0-1.0); Blood Urea Nitrogen 27 mg/dL (9-16); Calcium 7.5 mg/dL (8.4-10.2); Carbon Dioxide 21 mmol/L (22-29); Chloride 104 mmol/L (96-108); Creatinine Clr Calc Pharmacy 78.2; Estimated Glomerular Filt Rate > 60; Glucose Fasting 168 mg/dL (60-99); Potassium 4.1 mmol/L (3.3-5.1); Sodium 137 mmol/L (135-145); Total Protein 5.1 g/dL (6.5-8.0)
[2021-05-06 06:26] LABS: Dohle Bodies PRES; Hypochromasia 1+ (5-14) /OIF; Ovalocytes 1+ (5-14) /OIF; Platelet Estimate DECREASED (NORMAL); Polychromasia 1+ (0-2) /OIF
[2021-05-06 06:28] LABS: Burr Cells 1+ (0-2) /OIF; Schistocytes 1+ (0-2) /OIF
[2021-05-06 06:29] LABS: Large Platelet PRESENT; Platelet Morphology Comment NOTED
--- NOTE | 2021-05-06 06:33 | PC.NURSE ---
Pt c/o upper abd tendernesss and pain with minimal relief from prn tylenol, Dr. Lei was notified, Oxycodone 5 mg po given, pt was able to sleep after.
[2021-05-06 07:17] LABS: INTERNATIONAL NORM RATIO 7.9 (0.9-1.1)
[2021-05-06 07:40] VITALS: BP 147/64; PULSE 84; RESP 18; TEMP 37; O2SAT 94
[2021-05-06 07:46] LABS: Glucose, Whole Blood 170 mg/dL (60-115)
[2021-05-06 08:18] LABS: HBS Num1 68.34 mIU/mL (0-7.99); HBc Num1 0.13 S/CO (0.00-0.79); Hepatitis A Antibody IgM 0.15 Index (0-0.79); Hepatitis B Core Antibody Nonreactive (Nonreactive); ~HepC Num1 12.09 S/CO (0.00-0.79); ~Hepatitis A Antibody IgM Nonreactive (Nonreactive); ~Hepatitis B Surface Antibody REACTIVE (Nonreactive); ~Hepatitis C Antibody Reactive (Nonreactive)
[2021-05-06] MEDS: Phytonadione (Vit K1) 10 MG in 0.9 % Sodium Chloride 50 ML 51 MG IV (08:31)
[2021-05-06] MEDS: Insulin Lispro 100 UNIT/ML 3 ML VIAL SUBCUT ×4 (08:38→20:59)
[2021-05-06] MEDS: methADONE HCl 20 MG/2 ML ORAL.CONC 70 MG PO (08:39)
[2021-05-06] MEDS: Piperacillin Sodium/Tazobactam 3.375 GM in 0.9 % Sodium Chloride 50 ML IV ×3 (08:39→19:16)
[2021-05-06] MEDS: Furosemide 20 MG TABLET PO (08:42)
[2021-05-06] MEDS: Metoprolol Succinate ER 50 MG TAB.ER.24H PO (08:42)
[2021-05-06] MEDS: Omeprazole 40 MG CAPSULE.DR PO (08:42)
[2021-05-06] MEDS: Acyclovir 200 MG CAPSULE 400 MG PO (08:42)
[2021-05-06] MEDS: oxyCODONE HCl Immed Release 5 MG TABLET 10 MG PO ×3 (08:58→19:23)
[2021-05-06 09:14] LABS: HBsAGNum1 0.25 S/CO (0.00-0.99); Hepatitis B Surface Antigen Negative (Negative)
--- NOTE | 2021-05-06 11:41 | HO.PICC ---
[facility] Diagnosis: UTI, GRAM (-) BACTEREMIA Indication: DIFFICULT IV ACCESS; NEEDS IV ACCESS FOR IV MEDICATIONS Pertinent Labs: REVIEWED; CLEARANCE OBTAINED FOR PICC INSERTION Technique: Following informed consent including risks, benefits and alternatives and using sterile technique including cap and mask, sterile gown, glove and drape, the RIGHT arm was prepped and draped in the usual sterile fashion of full barrier technique with CHG. Following completion of [place] Protocol the skin and soft tissues were anesthetized with 1% Lidocaine plain. Using ultrasound guidance, BRACHIAL vein access was obtained IN SINGLE ATTEMPT BY THIS RN. Over an 0.018 wire through peel-away sheath, a DUAL-LUMEN, 5-NIGERIEN, PASV PICC line was positioned. Catheter length is 35 CM internal length, 0 CM external length, for a total trimmed length of 35 CM. The procedure was performed in [facility]. Tip verification was performed by Nory Do with Sherlock 3CG. Tip located in SVC. Ultrasound was used to document vein patency and for needle entry. A formal ultrasound picture and cardiac rhythm strip was recorded. Vascular [employer] has released the line for use and it is currently dressed with a StatLock, Tegaderm, and CHG disc. Verification has been performed for blood return and line patency. Arm Circumference: 28 CM Equipment: [employer] POWERPICC SOLO Catheter Type: 5-NIGERIEN, DUAL LUMEN, PASV Lot #: [id number]
[2021-05-06 12:00] VITALS: BP 126/60; PULSE 89; RESP 18; TEMP 36.4; O2SAT 96
[2021-05-06 12:11] LABS: Glucose, Whole Blood 250 mg/dL (60-115)
--- NOTE | 2021-05-06 15:10 | P.PNIM_ITS ---
Subjective Subjective Date of Service: 05/06/21 Interval History: No acute issues overnight Review of Systems denies chest pain Denies shortness of breath Denies nausea vomiting diarrhea Physical Exam Vital Signs: Vital Signs: Last Vital Signs Temp 97.5 F 05/06/21 12:00 Pulse 89 05/06/21 12:00 Resp 18 05/06/21 12:00 BP 126/60 05/06/21 12:00 Pulse Ox 96 05/06/21 12:00 BMI result Body Mass Index 35.4 Const: Other: no acute distress Eyes: Other: anicteric Resp: Other: clear to auscultation bilaterally no rales rhonchi or wheezes Cardio: Other: no S4; positive S1-S2; no S3 murmurs rubs or gallops GI: Other: soft nontender nondistended normoactive bowel sounds Extrem: Other: no edema bilaterally Objective Data Active Medications Acetaminophen (Acetaminophen 325 Mg Tablet) 650 mg PO Q8H PRN PRN Reason: Pain, Mild (Pain Scale 1-3) Last Admin: 05/06/21 12:23 Dose: 650 mg Documented by: ALTAGRACIA Acyclovir (Acyclovir 200 Mg Capsule) 400 mg PO DAILY COUNTS INCLUDE 234 BEDS AT THE [facility] Last Admin: 05/06/21 08:42 Dose: 400 mg Documented by: ALTAGRACIA Atorvastatin Calcium (Atorvastatin Calcium 10 Mg Tablet) 5 mg PO BEDTIME FLORENCIO Last Admin: 05/05/21 20:11 Dose: 5 mg Documented by: DANIA Dextrose (Dextrose 50 % 25 Gm/50 Ml Vial) 25 gm IVPUSH Q15M PRN; Protocol PRN Reason: per Hypoglycemia Standing Ord. Docusate Sodium (Docusate Sodium 100 Mg Capsule) 100 mg PO DAILY PRN PRN Reason: Constipation Enoxaparin Sodium (Enoxaparin Sodium 40 Mg/0.4 Ml Syringe) 40 mg SUBCUT Q24H FLORENCIO Last Admin: 05/06/21 01:32 Dose: 40 mg Documented by: CASTILM Furosemide (Furosemide 20 Mg Tablet) 20 mg PO DAILY COUNTS INCLUDE 234 BEDS AT THE [facility]; Protocol Last Admin: 05/06/21 08:42 Dose: 20 mg Documented by: ALTAGRACIA Glucose (Glucose Gel 15 Gm Gel..Gram.) 15 gm PO Q15M PRN; Protocol PRN Reason: per Hypoglycemia Standing Ord. Acetylcysteine 13,607.7 mg/ (Dextrose) 1,068.0385 mls @ 44.502 mls/hr IV ONCE@1700 COUNTS INCLUDE 234 BEDS AT THE [facility] Last Infusion: 05/06/21 12:22 Dose: 44.5 mls/hr Documented by: ALTAGRACIA Piperacillin Sod/Tazobactam (Sod 3.375 gm/ Sodium Chloride) 50 mls @ 100 mls/hr IV Q6H COUNTS INCLUDE 234 BEDS AT THE [facility] Last Infusion: 05/06/21 15:05 Dose: 0 mls/hr Documented by: ALTAGRACIA Insulin Human Lispro (Insulin Lispro 100 Unit/Ml 3 Ml Vial) 0 unit SUBCUT QIDACHS COUNTS INCLUDE 234 BEDS AT THE [facility]; Protocol Last Admin: 05/06/21 12:24 Dose: 4 unit Documented by: ALTAGRACIA Levothyroxine Sodium (Levothyroxine Sodium 50 Mcg Tablet) 50 mcg PO DAILY@0600 COUNTS INCLUDE 234 BEDS AT THE [facility] Last Admin: 05/06/21 05:47 Dose: 50 mcg Documented by: CASTILM Methadone HCl (Methadone Hcl 20 Mg/2 Ml Oral.Conc) 70 mg PO DAILY COUNTS INCLUDE 234 BEDS AT THE [facility] Last Admin: 05/06/21 08:39 Dose: 70 mg Documented by: ALTAGRACIA Metoprolol Succinate (Metoprolol Succinate Er 50 Mg Tab.Er.24h) 50 mg PO DAILY COUNTS INCLUDE 234 BEDS AT THE [facility]; Protocol Last Admin: 05/06/21 08:42 Dose: 50 mg Documented by: ALTAGRACIA Omeprazole (Omeprazole 40 Mg Capsule.Dr) 40 mg PO DAILY COUNTS INCLUDE 234 BEDS AT THE [facility] Last Admin: 05/06/21 08:42 Dose: 40 mg Documented by: ALTAGRACIA Ondansetron HCl (Ondansetron Hcl 4 Mg/2 Ml Vial) 4 mg IVPUSH Q4H PRN PRN Reason: Nausea and Vomiting Last Admin: 05/05/21 18:23 Dose: 4 mg Documented by: GARCIA Oxycodone HCl (Oxycodone Hcl Immed Release 5 Mg Tablet) 10 mg PO Q4H PRN PRN Reason: Pain, Moderate (Pain Scale 4-6 Last Admin: 05/06/21 14:34 Dose: 10 mg Documented by: ALTAGRACIA Sodium Chloride (0.9 % Sodium Chloride Flush 3 Ml Syringe) 3 ml IVFLUSH QSHIFT COUNTS INCLUDE 234 BEDS AT THE [facility] Last Admin: 05/06/21 15:03 Dose: Not Given Documented by: HO.LYSZ Non-Admin Reason: flushed with med Labs CBC & Chem 7: 05/06/21 05:35 05/06/21 05:34 Labs: Laboratory Results - last 24 hr 05/05/21 05/05/21 05/05/21 00:00 16:08 18:24 MCV MCH MCHC RDW Plt Count MPV Immature Gran % (Auto) Neut % (Auto) Lymph % (Auto) [place] % (Auto) Eos % (Auto) Baso % (Auto) Lymph # (Auto) [place] # (Auto) Eos # (Auto) Baso # (Auto) Abs Immat Gran (auto) Absolute Neuts (auto) Absolute Nucleated RBC Nucleated RBC % (auto) Neutrophils % (Manual) Band Neutrophils % Lymphocytes % (Manual) Monocytes % (Manual) Abs Neuts (Manual) Lymphocytes # (Manual) Monocytes # (Manual) Toxic Granulation Toxic Vacuolation Dohle Bodies Platelet Estimate Large Platelets Plt Morphology Comment RBC Morphology Polychromasia Hypochromasia Ovalocytes [place] Cells Schistocytes PT 52.0 H INR 4.4 H Anion Gap Estim Creat Clear Calc Estimated GFR POC Glucose 188 H Fasting Glucose Calcium Total Bilirubin AST ALT Alkaline Phosphatase Total Protein Albumin Hepatitis A IgM Ab Nonreactive Hep Bs Antigen Negative Hep Bs Antibody REACTIVE Hep B Core Total Ab Nonreactive Hepatitis C Ab (EIA) Reactive H 05/05/21 05/06/21 05/06/21 19:31 05:34 05:34 MCV MCH MCHC RDW Plt Count MPV Immature Gran % (Auto) Neut % (Auto) Lymph % (Auto) [place] % (Auto) Eos % (Auto) Baso % (Auto) Lymph # (Auto) [place] # (Auto) Eos # (Auto) Baso # (Auto) Abs Immat Gran (auto) Absolute Neuts (auto) Absolute Nucleated RBC Nucleated RBC % (auto) Neutrophils % (Manual) Band Neutrophils % Lymphocytes % (Manual) Monocytes % (Manual) Abs Neuts (Manual) Lymphocytes # (Manual) Monocytes # (Manual) Toxic Granulation Toxic Vacuolation Dohle Bodies Platelet Estimate Large Platelets Plt Morphology Comment RBC Morphology Polychromasia Hypochromasia Ovalocytes [place] Cells Schistocytes PT 94.3 H INR 7.9 H* D Anion Gap 16 Estim Creat Clear Calc 78.2 Estimated GFR > 60 POC Glucose 221 H Fasting Glucose 168 H Calcium 7.5 L Total Bilirubin 4.7 H AST 78 H ALT 62 H Alkaline Phosphatase 196 H Total Protein 5.1 L Albumin 2.2 L Hepatitis A IgM Ab Hep Bs Antigen Hep Bs Antibody Hep B Core Total Ab Hepatitis C Ab (EIA) 05/06/21 05/06/21 05/06/21 05:35 07:39 12:05 MCV 90.0 MCH 28.4 MCHC 31.5 RDW 18.2 H Plt Count 41 L MPV Not Reportable Immature Gran % (Auto) Cancelled Neut % (Auto) Cancelled Lymph % (Auto) Cancelled [place] % (Auto) Cancelled Eos % (Auto) Cancelled Baso % (Auto) Cancelled Lymph # (Auto) Cancelled [place] # (Auto) Cancelled Eos # (Auto) Cancelled Baso # (Auto) Cancelled Abs Immat Gran (auto) Cancelled Absolute Neuts (auto) Cancelled Absolute Nucleated RBC 0.020 H Nucleated RBC % (auto) 0.1 Neutrophils % (Manual) 93 H Band Neutrophils % 2 L Lymphocytes % (Manual) 2 L Monocytes % (Manual) 3 Abs Neuts (Manual) 14.0 H Lymphocytes # (Manual) 0.3 L Monocytes # (Manual) 0.4 Toxic Granulation PRESENT Toxic Vacuolation PRESENT Dohle Bodies PRES Platelet Estimate DECREASED Large Platelets PRESENT Plt Morphology Comment NOTED RBC Morphology NOTED Polychromasia 1+ (0-2) Hypochromasia 1+ (5-14) Ovalocytes 1+ (5-14) Marsha Cells 1+ (0-2) Schistocytes 1+ (0-2) PT INR Anion Gap Estim Creat Clear Calc Estimated GFR POC Glucose 170 H 250 H Fasting Glucose Calcium Total Bilirubin AST ALT Alkaline Phosphatase Total Protein Albumin Hepatitis A IgM Ab Hep Bs Antigen Hep Bs Antibody Hep B Core Total Ab Hepatitis C Ab (EIA) Microbiology Microbiology Results: Microbiology 05/04/21 00:00 Urine Culture - Final Urine clean catch - Urine hernandez top Escherichia coli 05/05/21 03:06 Blood Culture - Preliminary Blood - Venous Gram negative shalom 05/05/21 03:06 Blood Culture - Preliminary Blood - Venous Gram negative shalom Assessment and Plan (1) Hepatitis: Status: Acute (2) Liver cirrhosis: Status: Acute (3) Ascites of liver: Status: Acute (4) UTI (urinary tract infection): Status: Acute Plan 50-year-old female with past medical history of liver cirrhosis secondary to cured hepatitis-C, hypertension, rheumatoid arthritis, hypothyroidism, Crohn's disease status post bowel resection x2 in the past who presents to the hospital with complaints of urinary symptoms, nausea, vomiting and diarrhea. 1.Acute hepatitis/transmanitis - INR 7.9...Vit K given -PICC line in -US ABD...subjectively larger per pt 2. UTI - will treat with ceftriaxone - follow urine cultures 3.Hypothyroidism - continue levothyroxine 4.History of opioid use disorder - continue methadone DVT prophylaxis: Lovenox patient will likely require 2 midnights going forward to treat acute on chronic liver failure with issue will cystine IV Quality Stroke Does the patient have a stroke diagnosis?: No VTE Prior VTE?: No VTE Risk Level:: Medical - moderate - high VTE Device Contraindication: Treatment Not Indicated VTE Drug Contraindication: N/A - Med Ordered
--- NOTE | 2021-05-06 15:21 | MHC.CM.PN ---
[employer]URSE [employer]FETERIA COOK NOTES ELECTRONIC MEDICAL RECORD REVIEWED ALONG WITH CASE DISCUSSED WITH STAFF NURSE AND HOSPITALIST. PATIENT WILL HAVE PIC LINE PLACED TODAY FOR IV FLUIDS, MEDICATIONS AND LAB DRAWS . PER HOSPITA;SIT AND DOCUMENTATION PATIENT WITH HEPATITIS LIVER CIRHOSIS ASCITES OF THE LIVER AND UTI., PLAN CONTINUE WITH IV ABX, MONITORING LABS HISTORY OF OPIOD ABUSE CONTINUE ON METHADONE . DISCHARGE PLAN -INITIALLY HOME -LIVES ALONE ,INDEPENDENT , NO SERVICES SELF RESUMPTIOMN OF HER METHADONE SERVICES TRANSPORTATION SELF PCP DR CRISTOFER AHUJA
[2021-05-06 15:52] VITALS: BP 127/60; PULSE 90; RESP 16; TEMP 36.9; O2SAT 95
[2021-05-06 16:38] LABS: Glucose, Whole Blood 260 mg/dL (60-115)
[2021-05-06] MEDS: ondansetron HCL 4 MG/2 ML VIAL IVPUSH (18:00)
[2021-05-06 18:29] LABS: INTERNATIONAL NORM RATIO 4.6 (0.9-1.1); Prothrombin Time 54.3 SEC (9.9-13.0)
[2021-05-06] MEDS: Atorvastatin Calcium 10 MG TABLET 5 MG PO (19:16)
[2021-05-06 19:35] VITALS: BP 127/62; PULSE 95; RESP 16; TEMP 36.8; O2SAT 94
[2021-05-06 20:24] LABS: Glucose, Whole Blood 163 mg/dL (60-115)
[2021-05-06 23:23] VITALS: BP 123/66; PULSE 94; RESP 16; TEMP 36.9; O2SAT 94
[2021-05-07] MEDS: Piperacillin Sodium/Tazobactam 3.375 GM in 0.9 % Sodium Chloride 50 ML IV ×4 (01:23→20:16)
[2021-05-07 03:49] VITALS: BP 140/60; PULSE 100; RESP 16; TEMP 37.4; O2SAT 95
[2021-05-07] MEDS: Levothyroxine Sodium 50 MCG TABLET PO (05:18)
[2021-05-07] MEDS: oxyCODONE HCl Immed Release 5 MG TABLET 10 MG PO ×2 (05:18→15:40)
[2021-05-07 06:53] LABS: Basophils Percent Auto 0.1 % (0-2); Eosinophils Percent Auto 0.2 % (0-4); Hematocrit 23.3 % (37.0-47.0); Hemoglobin 7.5 g/dl (12.0-16.0); Imm Gran Abs Auto 0.25 X10*3/uL (0.00-0.03); Imm Gran Pct Auto 1.5 % (0.0-0.4); Lymphocytes Absolute Auto 0.7 X10*3/uL (1.2-4.9); Lymphocytes Percent Auto 4.4 % (20-40); MANUAL DIFF FLAG SCAN; Mean Corpuscular HGB Conc 32.2 g/dl (31.0-35.0); Mean Corpuscular Hemoglobin 28.3 pg (27.0-33.0); Mean Corpuscular Volume 87.9 fL (80.0-98.0); Mean Platelet Volume 12.1 fL (9.4-12.3); Monocytes Absolute Auto 1.8 X10*3/uL (0.1-1.2); Monocytes Percent Auto 11.1 % (2-11); NRBC Pct Auto 0.3 /100WBC (0.0-0.2); Neutrophils Absolute Auto 13.4 x10*3/uL (2.0-8.3); Neutrophils Percent Auto 82.7 % (45-73); Red Blood Count 2.65 X10*6/uL (4.20-5.50); Red Cell Distribution Width 18.3 % (11.0-16.0); SCAN SMEAR FLAG 1; White Blood Count 16.2 X10*3/uL (4.8-10.8)
[2021-05-07 06:54] LABS: Platelet Count 74 X10*3/uL (160-400)
[2021-05-07 07:01] LABS: INTERNATIONAL NORM RATIO 3.7 (0.9-1.1); Prothrombin Time 43.3 SEC (9.9-13.0)
[2021-05-07 07:18] LABS: Alanine Aminotransferase 66 U/L (0-31); Albumin Level 2.3 g/dL (3.5-5.0); Alkaline Phosphatase 226 U/L (39-117); Anion Gap 13 (12-20); Aspartate Amino Transferase 92 U/L (5-31); Bilirubin Total 5.6 mg/dL (0.0-1.0); Blood Urea Nitrogen 23 mg/dL (9-16); Calcium 7.7 mg/dL (8.4-10.2); Carbon Dioxide 26 mmol/L (22-29); Chloride 102 mmol/L (96-108); Creatinine Clr Calc Pharmacy 76.5; Estimated Glomerular Filt Rate > 60; Glucose Fasting 156 mg/dL (60-99); Potassium 3.5 mmol/L (3.3-5.1); Sodium 137 mmol/L (135-145); Total Protein 5.4 g/dL (6.5-8.0)
[2021-05-07 07:38] VITALS: BP 111/53; PULSE 86; RESP 18; TEMP 36.5; O2SAT 94
[2021-05-07 07:45] LABS: Glucose, Whole Blood 144 mg/dL (60-115)
[2021-05-07 08:07] LABS: SLIDE REVIEW VERIFIED
[2021-05-07 08:47] LABS: CDiff Gene PCR POSITIVE (Negative)
[2021-05-07] MEDS: methADONE HCl 20 MG/2 ML ORAL.CONC 70 MG PO (09:32)
[2021-05-07] MEDS: Acyclovir 200 MG CAPSULE 400 MG PO (09:32)
[2021-05-07] MEDS: 0.9 % Sodium Chloride Flush 3 ML SYRINGE IVFLUSH ×2 (09:33→20:16)
[2021-05-07 10:17] LABS: CDIFF Internal ctrl Dots and bkg OK (V); CDiff Toxin Negative (Negative)
[2021-05-07] MEDS: Omeprazole 40 MG CAPSULE.DR PO (10:36)
[2021-05-07] MEDS: Metoprolol Succinate ER 50 MG TAB.ER.24H PO (10:37)
--- NOTE | 2021-05-07 10:39 | PC.NURSE ---
Skin/wound assessment completed. Patient has a serosanguinous fluid filled blister on left heel. Stage pressure injury. Bruising to bilateral arms.
[2021-05-07 11:40] VITALS: BP 132/63; PULSE 84; RESP 18; TEMP 37.1; O2SAT 92
[2021-05-07 11:57] LABS: Glucose, Whole Blood 182 mg/dL (60-115)
[2021-05-07] MEDS: Insulin Lispro 100 UNIT/ML 3 ML VIAL SUBCUT ×3 (12:14→20:29)
[2021-05-07 12:31] VITALS: BMI 35.4
--- NOTE | 2021-05-07 12:34 | MHC.CLN ---
RE: CONSULT PT WITH INCREASED NUTRITION RISK R/T PRESSURE INJURY PO INTAKE 50-100% X 3 DAYS DIET RX: REGULAR-RECOMMEND 2000DM DIET R/T HX DM RECOMMEND ADDING GLUCERNA BID TO INCREASE KCALS AND PROMOTE WOUND HEALING SUPP TO PROVIDE 474KCALS, 20G PROTEIN MONITOR PO INTAKE CLOSELY SEE ALSO FULL CLINICAL NUTRITION ASSESSMENT
--- NOTE | 2021-05-07 12:35 | HO.PM.IMPN ---
Subjective Subjective Date of Service: 05/07/21 Interval History: No acute issues overnight Review of Systems denies chest pain Denies shortness of breath Denies nausea vomiting diarrhea Physical Exam Vital Signs: Vital Signs: Last Vital Signs Temp 98.7 F 05/07/21 11:40 Pulse 84 05/07/21 11:40 Resp 18 05/07/21 11:40 BP 132/63 05/07/21 11:40 Pulse Ox 92 05/07/21 11:40 BMI result Body Mass Index 35.4 Const: Other: no acute distress Eyes: Other: anicteric Resp: Other: clear to auscultation bilaterally no rales rhonchi or wheezes Cardio: Other: no S4; positive S1-S2; no S3 murmurs rubs or gallops GI: Other: soft nontender nondistended normoactive bowel sounds Extrem: Other: no edema bilaterally Objective Data Active Medications Acetaminophen (Acetaminophen 325 Mg Tablet) 650 mg PO Q8H PRN PRN Reason: Pain, Mild (Pain Scale 1-3) Last Admin: 05/06/21 12:23 Dose: 650 mg Documented by: ALTAGRACIA Acyclovir (Acyclovir 200 Mg Capsule) 400 mg PO DAILY [facility] Last Admin: 05/07/21 09:32 Dose: 400 mg Documented by: DIONISIO Atorvastatin Calcium (Atorvastatin Calcium 10 Mg Tablet) 5 mg PO BEDTIME [facility] Last Admin: 05/06/21 19:16 Dose: 5 mg Documented by: JUJU Dextrose (Dextrose 50 % 25 Gm/50 Ml Vial) 25 gm IVPUSH Q15M PRN; Protocol PRN Reason: per Hypoglycemia Standing Ord. Docusate Sodium (Docusate Sodium 100 Mg Capsule) 100 mg PO DAILY PRN PRN Reason: Constipation Enoxaparin Sodium (Enoxaparin Sodium 40 Mg/0.4 Ml Syringe) 40 mg SUBCUT Q24H [facility] Last Admin: 05/07/21 01:29 Dose: Not Given Documented by: JUJU Non-Admin Reason: Patient Refused Furosemide (Furosemide 20 Mg Tablet) 20 mg PO DAILY [facility]; Protocol Last Admin: 05/07/21 10:31 Dose: Not Given Documented by: DIONISIO Non-Admin Reason: Physician Held Med Glucose (Glucose Gel 15 Gm Gel..Gram.) 15 gm PO Q15M PRN; Protocol PRN Reason: per Hypoglycemia Standing Ord. Piperacillin Sod/Tazobactam (Sod 3.375 gm/ Sodium Chloride) 50 mls @ 100 mls/hr IV Q6H [facility] Last Infusion: 05/07/21 10:38 Dose: 0 mls/hr Documented by: DIONISIO Phytonadione 5 mg/ Sodium (Chloride) 50.5 mls @ 50.5 mls/hr IV ONCE ONE Stop: 05/07/21 13:32 Insulin Human Lispro (Insulin Lispro 100 Unit/Ml 3 Ml Vial) 0 unit SUBCUT QIDACHS [facility]; Protocol Last Admin: 05/07/21 12:14 Dose: 2 unit Documented by: DIONISIO Levothyroxine Sodium (Levothyroxine Sodium 50 Mcg Tablet) 50 mcg PO DAILY@0600 [facility] Last Admin: 05/07/21 05:18 Dose: 50 mcg Documented by: JUJU Methadone HCl (Methadone Hcl 20 Mg/2 Ml Oral.Conc) 70 mg PO DAILY [facility] Last Admin: 05/07/21 09:32 Dose: 70 mg Documented by: DIONISIO Metoprolol Succinate (Metoprolol Succinate Er 50 Mg Tab.Er.24h) 50 mg PO DAILY [facility]; Protocol Last Admin: 05/07/21 10:37 Dose: 50 mg Documented by: DIONISIO Omeprazole (Omeprazole 40 Mg Capsule.Dr) 40 mg PO DAILY [facility] Last Admin: 05/07/21 10:36 Dose: 40 mg Documented by: DIONISIO Ondansetron HCl (Ondansetron Hcl 4 Mg/2 Ml Vial) 4 mg IVPUSH Q4H PRN PRN Reason: Nausea and Vomiting Last Admin: 05/06/21 18:00 Dose: 4 mg Documented by: ALTAGRACIA Oxycodone HCl (Oxycodone Hcl Immed Release 5 Mg Tablet) 10 mg PO Q4H PRN PRN Reason: Pain, Moderate (Pain Scale 4-6 Last Admin: 05/07/21 05:18 Dose: 10 mg Documented by: JUJU Sodium Chloride (0.9 % Sodium Chloride Flush 3 Ml Syringe) 3 ml IVFLUSH QSHIFT [facility] Last Admin: 05/07/21 09:33 Dose: 3 ml Documented by: DIONISIO Labs CBC & Chem 7: 05/07/21 06:35 05/07/21 06:35 Labs: Laboratory Results - last 24 hr 05/06/21 05/06/21 05/06/21 16:26 18:14 20:17 MCV MCH MCHC RDW Plt Count MPV Immature Gran % (Auto) Neut % (Auto) Lymph % (Auto) [place] % (Auto) Eos % (Auto) Baso % (Auto) Lymph # (Auto) [place] # (Auto) Eos # (Auto) Baso # (Auto) Abs Immat Gran (auto) Absolute Neuts (auto) Absolute Nucleated RBC Nucleated RBC % (auto) Smear Tech's Comments PT 54.3 H INR 4.6 H D Anion Gap Estim Creat Clear Calc Estimated GFR POC Glucose 260 H 163 H Fasting Glucose Calcium Total Bilirubin AST ALT Alkaline Phosphatase Total Protein Albumin C. difficile Tox B Gene C. difficile Toxin A&B C. difficile Interpret 05/07/21 05/07/21 05/07/21 06:34 06:35 06:35 MCV 87.9 MCH 28.3 MCHC 32.2 RDW 18.3 H Plt Count 74 L D MPV 12.1 Immature Gran % (Auto) 1.5 H Neut % (Auto) 82.7 H Lymph % (Auto) 4.4 L [place] % (Auto) 11.1 H Eos % (Auto) 0.2 Baso % (Auto) 0.1 Lymph # (Auto) 0.7 L [place] # (Auto) 1.8 H Eos # (Auto) 0.0 Baso # (Auto) 0.0 Abs Immat Gran (auto) 0.25 H Absolute Neuts (auto) 13.4 H Absolute Nucleated RBC 0.050 H Nucleated RBC % (auto) 0.3 H Smear Tech's Comments VERIFIED PT INR Anion Gap 13 Estim Creat Clear Calc 76.5 Estimated GFR > 60 POC Glucose Fasting Glucose 156 H Calcium 7.7 L Total Bilirubin 5.6 H AST 92 H ALT 66 H Alkaline Phosphatase 226 H Total Protein 5.4 L Albumin 2.3 L C. difficile Tox B Gene POSITIVE A* C. difficile Toxin A&B Negative C. difficile Interpret SEE NOTE 05/07/21 05/07/21 05/07/21 06:35 07:38 11:42 MCV MCH MCHC RDW Plt Count MPV Immature Gran % (Auto) Neut % (Auto) Lymph % (Auto) [place] % (Auto) Eos % (Auto) Baso % (Auto) Lymph # (Auto) [place] # (Auto) Eos # (Auto) Baso # (Auto) Abs Immat Gran (auto) Absolute Neuts (auto) Absolute Nucleated RBC Nucleated RBC % (auto) Smear Tech's Comments PT 43.3 H INR 3.7 H Anion Gap Estim Creat Clear Calc Estimated GFR POC Glucose 144 H 182 H Fasting Glucose Calcium Total Bilirubin AST ALT Alkaline Phosphatase Total Protein Albumin C. difficile Tox B Gene C. difficile Toxin A&B C. difficile Interpret Microbiology Microbiology Results: Microbiology 05/05/21 03:06 Blood Culture - Final Blood - Venous Escherichia coli 05/05/21 03:06 Blood Culture - Final Blood - Venous Escherichia coli Assessment and Plan (1) Hepatitis: Status: Acute (2) Bacteremia, escherichia coli: Status: Acute Plan 50-year-old female with past medical history of liver cirrhosis secondary to cured hepatitis-C, hypertension, rheumatoid arthritis, hypothyroidism, Crohn's disease status post bowel resection x2 in the past who presents to the hospital with complaints of urinary symptoms, nausea, vomiting and diarrhea. 1.Acute hepatitis/transmanitis - INR 3.7 today...additional 5mg Vit K given -chesk INR in am; 2. ECOli bacteremis/UTI - will treat with Zosyn(2) - follow urine cultures 3.Hypothyroidism - continue levothyroxine 4.History of opioid use disorder - continue methadone DVT prophylaxis: Lovenox patient will likely require 2 midnights going forward to treat acute on chronic liver failure with VIT K amd [place] bacteremia Quality Stroke Does the patient have a stroke diagnosis?: No VTE Prior VTE?: No VTE Risk Level:: Medical - moderate - high VTE Device Contraindication: Treatment Not Indicated VTE Drug Contraindication: N/A - Med Ordered
[2021-05-07] MEDS: Phytonadione (Vit K1) 5 MG in 0.9 % Sodium Chloride 50 ML 50.5 MG IV (13:28)
--- NOTE | 2021-05-07 13:37 | W.PM.IDCN ---
History of Present Illness Data of Consult Service Date: 05/06/21 Requesting physician: Luis Hinkle Primary Care Provider: David Ortiz MD HPI Reason for consult: sepsis,bacteremia E coli She presents with nausea ,vomiting and diarrhea watery 2-3 times a day at least for six days and worse over last three days. She has no fever now but had some chills. CT scan shows cirrhosis but no urinary pathology. Blood and urine cultures shows E coli,torres sensitive. She had been on Macrobid for 7/14 days two weeks ago due to hematuria and UTI concern. 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 Other Mental health disorder Substance use disorder Family history: reviewed and not pertinent Surgical History Surgical History History of appendectomy History of bowel resection History of hernia repair Social History Social History Household Members: None Housing: Apartment Do you presently have visiting nurse or other home services: No Patient Tobacco Use Status: Current someday Tobacco user Tobacco use type: Cigarette Cigarettes Per Day: 4 Years Smoked: 17 years old Current occupational status: employed Meds Allergies Allergy/AdvReac Type Severity Reaction Status Date / Time ciprofloxacin [Cipro] Allergy Unknown swelling Verified 04/17/21 15:29 of the throat , hives Active Medications: Current Medications Acetaminophen (Acetaminophen 325 Mg Tablet) 650 mg PO Q8H PRN PRN Reason: Pain, Mild (Pain Scale 1-3) Last Admin: 05/06/21 12:23 Dose: 650 mg Documented by: Acyclovir (Acyclovir 200 Mg Capsule) 400 mg PO DAILY [facility]OR[facility] Last Admin: 05/07/21 09:32 Dose: 400 mg Documented by: Atorvastatin Calcium (Atorvastatin Calcium 10 Mg Tablet) 5 mg PO BEDTIME [facility] Last Admin: 05/06/21 19:16 Dose: 5 mg Documented by: Dextrose (Dextrose 50 % 25 Gm/50 Ml Vial) 25 gm IVPUSH Q15M PRN; Protocol PRN Reason: per Hypoglycemia Standing Ord. Docusate Sodium (Docusate Sodium 100 Mg Capsule) 100 mg PO DAILY PRN PRN Reason: Constipation Enoxaparin Sodium (Enoxaparin Sodium 40 Mg/0.4 Ml Syringe) 40 mg SUBCUT Q24H [facility] Last Admin: 05/07/21 01:29 Dose: Not Given Documented by: Furosemide (Furosemide 20 Mg Tablet) 20 mg PO DAILY [facility]; Protocol Last Admin: 05/07/21 10:31 Dose: Not Given Documented by: Glucose (Glucose Gel 15 Gm Gel..Gram.) 15 gm PO Q15M PRN; Protocol PRN Reason: per Hypoglycemia Standing Ord. Piperacillin Sod/Tazobactam (Sod 3.375 gm/ Sodium Chloride) 50 mls @ 100 mls/hr IV Q6H [facility] Last Infusion: 05/07/21 10:38 Dose: Infused Documented by: Insulin Human Lispro (Insulin Lispro 100 Unit/Ml 3 Ml Vial) 0 unit SUBCUT QIDACHS [facility]; Protocol Last Admin: 05/07/21 12:14 Dose: 2 unit Documented by: Levothyroxine Sodium (Levothyroxine Sodium 50 Mcg Tablet) 50 mcg PO DAILY@0600 [facility] Last Admin: 05/07/21 05:18 Dose: 50 mcg Documented by: Methadone HCl (Methadone Hcl 20 Mg/2 Ml Oral.Conc) 70 mg PO DAILY [facility] Last Admin: 05/07/21 09:32 Dose: 70 mg Documented by: Metoprolol Succinate (Metoprolol Succinate Er 50 Mg Tab.Er.24h) 50 mg PO DAILY [facility]; Protocol Last Admin: 05/07/21 10:37 Dose: 50 mg Documented by: Omeprazole (Omeprazole 40 Mg Capsule.Dr) 40 mg PO DAILY [facility] Last Admin: 05/07/21 10:36 Dose: 40 mg Documented by: Ondansetron HCl (Ondansetron Hcl 4 Mg/2 Ml Vial) 4 mg IVPUSH Q4H PRN PRN Reason: Nausea and Vomiting Last Admin: 05/06/21 18:00 Dose: 4 mg Documented by: Oxycodone HCl (Oxycodone Hcl Immed Release 5 Mg Tablet) 10 mg PO Q4H PRN PRN Reason: Pain, Moderate (Pain Scale 4-6 Last Admin: 05/07/21 05:18 Dose: 10 mg Documented by: Sodium Chloride (0.9 % Sodium Chloride Flush 3 Ml Syringe) 3 ml IVFLUSH QSHIFT [facility] Last Admin: 05/07/21 09:33 Dose: 3 ml Documented by: Home Medications Medication Instructions Recorded Confirmed Last Taken Type celecoxib 200 mg capsule 200 mg PO 11/30/19 04/17/21 Unknown History tofacitinib 5 mg tablet 5 mg PO BID 11/30/19 05/04/21 Unknown History methadone 10 mg/mL oral concentrate 71 mg PO DAILY 05/04/21 05/04/21 Unknown History Physical Exam Vital Signs: Vital Signs: Last Vital Signs Temp 98.7 F 05/07/21 11:40 Pulse 84 05/07/21 11:40 Resp 18 05/07/21 11:40 BP 132/63 05/07/21 11:40 Pulse Ox 92 05/07/21 11:40 BMI result Body Mass Index 35.4 Const: General: cooperative HEENT: Head: Yes normal to inspection Mouth: Normal oral and palatal mucosa present Eyes: General: appearance normal, both eyes and all related structures Resp: Effort & Inspection: normal respiratory effort Cardio: Rate: regular rate Rhythm: regular rhythm GI: Other: some RLQ discomfort,10 Skin: General skin exam: no rashes or lesions noted Results Labs CBC & Chem 7: 05/07/21 06:35 05/07/21 06:35 Labs: Short CBC 05/07/21 Range/Units 06:35 WBC 16.2 H (4.8-10.8) X10*3/uL Hgb 7.5 L (12.0-16.0) g/dl Hct 23.3 L (37.0-47.0) % Plt Count 74 L D (160-400) X10*3/uL BMP 05/07/21 06:35 Sodium 137 Potassium 3.5 Chloride 102 Carbon Dioxide 26 BUN 23 H Creatinine 0.94 Calcium 7.7 L Liver Function 05/07/21 Range/Units 06:35 Total Bilirubin 5.6 H (0.0-1.0) mg/dL AST 92 H (5-31) U/L ALT 66 H (0-31) U/L Alkaline Phosphatase 226 H (39-117) U/L Albumin 2.3 L (3.5-5.0) g/dL Microbiology Microbiology Results: Microbiology 05/05/21 03:06 Blood - Venous Blood Culture - Final Escherichia coli 05/05/21 03:06 Blood - Venous Blood Culture - Final Escherichia coli 05/04/21 00:00 Urine clean catch - Urine hernandez top Urine Culture - Final Escherichia coli Assessment and Plan (1) Bacteremia, escherichia coli: Status: Acute She has urinary source,likely pyelonephritis Doubt endocarditis She has hepatitis and cephalosporins can give cholestatic picture. She also has hives to quinolones and QTC inteval over 600. Sulfa may give kidney toxicity. Nitrofurantoin did not work and not sufficient for pyelonephritis. (2) Nausea vomiting and diarrhea: Status: Acute (3) Hepatitis: Status: Acute (4) Ascites of liver: Status: Acute (5) Crohn's disease: Status: Acute She has diarrhea but nont at this time. If recurs Cdiff concern and check for Cdiff (6) Diabetes 1.5, managed as type 2: Status: Acute DM risk factor for urinary infection Plan Would give Piperacillin/Tazobactam and when improved would give po Augmentin for 14 day total. Consider prophylactic po Vancomycin 125 qid for duration of antibiotics and 48 hours later while on antibiotics due to Cdiff concern
--- NOTE | 2021-05-07 13:48 | P.CDIC_ITS ---
CDI Concurrent Query Documentation Clarification: PHYSICIAN'S DOCUMENTATION REQUEST Date of Query: 05/07/21 1348 Patient Name: Beata Carrillo Admit Date: 05/04/21 Dear Doctor, A review of the medical record indicates additional documentation may be needed. Please review below and update the documentation accordingly. Clinical Indicators: Risk Factors/Clinical Indicators/Treatments Heart rate 130 WBC 12.5 LA 3.2 urine culture: E. Coli blood culture: E.Coli Per MD progress note 05/06/21: EColi bacteremia/UTI treated with IV Piperacillin will treat with Zosyn Please clarify which, if any, of the following is the most likely etiology of the above symptoms and treatment rendered: * Sepsis, present on admission * Systemic manifestations of infection, with 2 or more SIRS criteria which include: - Fever > 100.4F or hypothermia < 96.8 F - Leukocytosis - WBC > 12,000 or leukopenia, WBC < 4,000 or > 10% bands - Tachycardia > 90 beats/minute - Tachypnea - RR > 20 breaths/minute or PaCO2 < 32mmHg (Source: Merck Manual 2013) * Indicate the known or suspected organism * Indicate the known or suspected underlying infection, such as UTI, pneumonia, or cellulitis * Indicate if a suspected bacterial infection of unknown source * Indicate if associated with an implanted device such as a F/C, PICC line, orthopedic hardware, etc. * Sepsis, present on admission due to E. Coli bacteremia * Other (please specify) * Unable to determine Use of terms such as suspected, likely, concern for, or probable (associated with a specific diagnosis that is being evaluated, monitored, or treated as if it exists) are acceptable and can be coded in the inpatient setting, when documented at the time of discharge. Thank you, Pam Nolan RN Extension: [phone] Please use your independent medical judgment in providing your response. THIS QUERY IS PART OF THE PERMANENT MEDICAL RECORD Provider Response: Other Other Diagnosis: Sepsis present on admission due to E coli bacteremia secondary to E coli UTI
[2021-05-07] MEDS: Furosemide 20 MG/2 ML VIAL IVPUSH (15:40)
[2021-05-07 16:00] VITALS: BP 127/69; PULSE 86; RESP 18; TEMP 37.2; O2SAT 98
[2021-05-07 16:31] LABS: Glucose, Whole Blood 154 mg/dL (60-115)
[2021-05-07 20:00] VITALS: BP 114/56; PULSE 92; RESP 18; TEMP 37.4; O2SAT 93
[2021-05-07 20:08] LABS: Glucose, Whole Blood 185 mg/dL (60-115)
[2021-05-07] MEDS: Atorvastatin Calcium 10 MG TABLET 5 MG PO (20:16)
[2021-05-07 23:50] VITALS: BP 127/67; PULSE 87; RESP 14; TEMP 37.3; O2SAT 94
[2021-05-08] VITALS (11 sets, daily range): BP systolic 119–148; BP diastolic 64–80; PULSE 72–98; RESP 14–20; TEMP 36.4–38.4; O2SAT 94–98
[2021-05-08 01:56] LABS: EBV-NA IgG Index >600.00 U/mL; EBV-VCA IgG Ab >750.00 U/mL; EBV-VCA IgM Ab <36.00 U/mL
[2021-05-08] MEDS: Piperacillin Sodium/Tazobactam 3.375 GM in 0.9 % Sodium Chloride 50 ML IV ×4 (02:10→22:11)
[2021-05-08] MEDS: Acetaminophen 325 MG TABLET 650 MG PO (02:39)
[2021-05-08] MEDS: Levothyroxine Sodium 50 MCG TABLET PO (05:49)
[2021-05-08 06:07] LABS: Imm Gran Pct Auto 1.3 % (0.0-0.4); NRBC Pct Auto 0.2 /100WBC (0.0-0.2); SCAN SMEAR FLAG 1
[2021-05-08 06:09] LABS: Eosinophils Absolute Auto 0.1 X10*3/uL (0.0-0.4); Eosinophils Percent Auto 0.6 % (0-4); Imm Gran Abs Auto 0.11 X10*3/uL (0.00-0.03); Lymphocytes Absolute Auto 0.6 X10*3/uL (1.2-4.9); Lymphocytes Percent Auto 6.7 % (20-40); Mean Corpuscular Hemoglobin 28.3 pg (27.0-33.0); Mean Corpuscular Volume 88.5 fL (80.0-98.0); Mean Platelet Volume 13.3 fL (9.4-12.3); Monocytes Absolute Auto 1.1 X10*3/uL (0.1-1.2); Monocytes Percent Auto 12.6 % (2-11); Neutrophils Absolute Auto 6.8 x10*3/uL (2.0-8.3); Neutrophils Percent Auto 78.8 % (45-73); Red Blood Count 2.26 X10*6/uL (4.20-5.50); Red Cell Distribution Width 18.3 % (11.0-16.0); White Blood Count 8.6 X10*3/uL (4.8-10.8)
[2021-05-08 06:11] LABS: PLT ABN DIST 1; Platelet Count 60 X10*3/uL (160-400)
[2021-05-08 06:15] LABS: Hemoglobin 6.4 g/dl (12.0-16.0)
[2021-05-08 06:16] LABS: MANUAL DIFF FLAG NO
--- NOTE | 2021-05-08 06:25 | PC.NURSE ---
lab called with critical H+H-6.4-20.3. notified.ordered type and screen and transfuse 1 unit RBC.
[2021-05-08 06:28] LABS: Alanine Aminotransferase 57 U/L (0-31); Albumin Level 2.2 g/dL (3.5-5.0); Alkaline Phosphatase 198 U/L (39-117); Anion Gap 11 (12-20); Aspartate Amino Transferase 81 U/L (5-31); Bilirubin Total 5.6 mg/dL (0.0-1.0); Blood Urea Nitrogen 22 mg/dL (9-16); Calcium 7.6 mg/dL (8.4-10.2); Carbon Dioxide 29 mmol/L (22-29); Chloride 101 mmol/L (96-108); Creatinine Clr Calc Pharmacy 74.1; Estimated Glomerular Filt Rate > 60; Glucose Fasting 172 mg/dL (60-99); Potassium 3.2 mmol/L (3.3-5.1); Sodium 138 mmol/L (135-145)
[2021-05-08 07:41] LABS: Glucose, Whole Blood 204 mg/dL (60-115)
[2021-05-08] MEDS: methADONE HCl 20 MG/2 ML ORAL.CONC 70 MG PO (08:08)
[2021-05-08] MEDS: Acyclovir 200 MG CAPSULE 400 MG PO (08:08)
[2021-05-08] MEDS: Insulin Lispro 100 UNIT/ML 3 ML VIAL SUBCUT ×2 (08:09→11:04)
[2021-05-08] MEDS: Metoprolol Succinate ER 50 MG TAB.ER.24H PO (08:09)
[2021-05-08] MEDS: Omeprazole 40 MG CAPSULE.DR PO (08:09)
[2021-05-08 08:17] LABS: INTERNATIONAL NORM RATIO 3.9 (0.9-1.1); Prothrombin Time 45.7 SEC (9.9-13.0)
--- NOTE | 2021-05-08 08:54 | P.PNIM_ITS ---
Subjective Subjective Date of Service: 05/08/21 Interval History: No acute issues overnight. No active bleeding noted Review of Systems denies chest pain Denies shortness of breath Denies nausea vomiting diarrhea Physical Exam Vital Signs: Vital Signs: Last Vital Signs Temp 98.4 F 05/08/21 07:22 Pulse 83 05/08/21 07:22 Resp 17 05/08/21 07:22 BP 131/67 05/08/21 07:22 Pulse Ox 97 05/08/21 07:22 BMI result Body Mass Index 35.4 Const: Other: no acute distress Eyes: Other: anicteric Resp: Other: clear to auscultation bilaterally no rales rhonchi or wheezes Cardio: Other: no S4; positive S1-S2; no S3 murmurs rubs or gallops GI: Other: soft nontender nondistended normoactive bowel sounds Extrem: Other: no edema bilaterally Objective Data Active Medications Acetaminophen (Acetaminophen 325 Mg Tablet) 650 mg PO Q8H PRN PRN Reason: Pain, Mild (Pain Scale 1-3) Last Admin: 05/08/21 02:39 Dose: 650 mg Documented by: MEGHANN Acyclovir (Acyclovir 200 Mg Capsule) 400 mg PO DAILY REPLACED BY [facility] Last Admin: 05/08/21 08:08 Dose: 400 mg Documented by: DIONISIO Atorvastatin Calcium (Atorvastatin Calcium 10 Mg Tablet) 5 mg PO BEDTIME REPLACED BY [facility] Last Admin: 05/07/21 20:16 Dose: 5 mg Documented by: MEGHANN Dextrose (Dextrose 50 % 25 Gm/50 Ml Vial) 25 gm IVPUSH Q15M PRN; Protocol PRN Reason: per Hypoglycemia Standing Ord. Docusate Sodium (Docusate Sodium 100 Mg Capsule) 100 mg PO DAILY PRN PRN Reason: Constipation Enoxaparin Sodium (Enoxaparin Sodium 40 Mg/0.4 Ml Syringe) 40 mg SUBCUT Q24H [facility] Last Admin: 05/08/21 02:15 Dose: Not Given Documented by: MEGHANN Non-Admin Reason: Patient Refused Furosemide (Furosemide 20 Mg/2 Ml Vial) 20 mg IVPUSH DAILY REPLACED BY [facility]; Protocol Last Admin: 05/08/21 08:40 Dose: Not Given Documented by: DIONISIO Non-Admin Reason: Patient Refused Glucose (Glucose Gel 15 Gm Gel..Gram.) 15 gm PO Q15M PRN; Protocol PRN Reason: per Hypoglycemia Standing Ord. Piperacillin Sod/Tazobactam (Sod 3.375 gm/ Sodium Chloride) 50 mls @ 100 mls/hr IV Q6H REPLACED BY [facility] Last Infusion: 05/08/21 02:41 Dose: 0 mls/hr Documented by: MEGHANN Insulin Human Lispro (Insulin Lispro 100 Unit/Ml 3 Ml Vial) 0 unit SUBCUT QIDACHS REPLACED BY [facility]; Protocol Last Admin: 05/08/21 08:09 Dose: 4 unit Documented by: DIONISIO Levothyroxine Sodium (Levothyroxine Sodium 50 Mcg Tablet) 50 mcg PO DAILY@0600 REPLACED BY [facility] Last Admin: 05/08/21 05:49 Dose: 50 mcg Documented by: MEGHANN Methadone HCl (Methadone Hcl 20 Mg/2 Ml Oral.Conc) 70 mg PO DAILY REPLACED BY [facility] Last Admin: 05/08/21 08:08 Dose: 70 mg Documented by: DIONISIO Metoprolol Succinate (Metoprolol Succinate Er 50 Mg Tab.Er.24h) 50 mg PO DAILY REPLACED BY [facility]; Protocol Last Admin: 05/08/21 08:09 Dose: 50 mg Documented by: DIONISIO Morphine Sulfate (Morphine Sulfate 4 Mg/Ml Cartridge) 4 mg IVPUSH Q6H PRN; Protocol PRN Reason: Pain, Moderate (Pain Scale 4-6 Omeprazole (Omeprazole 40 Mg Capsule.Dr) 40 mg PO DAILY REPLACED BY [facility] Last Admin: 05/08/21 08:09 Dose: 40 mg Documented by: DIONISIO Ondansetron HCl (Ondansetron Hcl 4 Mg/2 Ml Vial) 4 mg IVPUSH Q4H PRN PRN Reason: Nausea and Vomiting Last Admin: 05/06/21 18:00 Dose: 4 mg Documented by: ALTAGRACIA Oxycodone HCl (Oxycodone Hcl Immed Release 5 Mg Tablet) 10 mg PO Q4H PRN PRN Reason: Pain, Moderate (Pain Scale 4-6 Last Admin: 05/08/21 00:00 Dose: 10 mg Documented by: MEGHANN Potassium Chloride (Potassium Chloride Packet 20 Meq Packet) 40 meq PO BID REPLACED BY [facility] Stop: 05/08/21 21:01 Sodium Chloride (0.9 % Sodium Chloride Flush 3 Ml Syringe) 3 ml IVFLUSH QSHIFT REPLACED BY [facility] Last Admin: 05/07/21 20:16 Dose: 3 ml Documented by: MEGHANN Labs CBC & Chem 7: 05/08/21 05:42 05/08/21 05:42 Labs: Laboratory Results - last 24 hr 05/06/21 05/07/21 05/07/21 05:34 06:34 11:42 MCV MCH MCHC RDW Plt Count MPV Immature Gran % (Auto) Neut % (Auto) Lymph % (Auto) [place] % (Auto) Eos % (Auto) Baso % (Auto) Lymph # (Auto) [place] # (Auto) Eos # (Auto) Baso # (Auto) Abs Immat Gran (auto) Absolute Neuts (auto) Absolute Nucleated RBC Nucleated RBC % (auto) PT INR Anion Gap Estim Creat Clear Calc Estimated GFR POC Glucose 182 H Fasting Glucose Calcium Total Bilirubin AST ALT Alkaline Phosphatase Total Protein Albumin C. difficile Toxin A&B Negative C. difficile Interpret SEE NOTE EBV Capsid Ag IgG Ab >750.00 H EBV Capsid Ag IgM Index <36.00 EBV Nuclear Ag IgG Indx >600.00 H EBV Antibody Interp SEE NOTE Blood Type Antibody Screen Crossmatch 05/07/21 05/07/21 05/08/21 16:25 20:02 05:42 MCV 88.5 MCH 28.3 MCHC 32.0 RDW 18.3 H Plt Count 60 L MPV 13.3 H Immature Gran % (Auto) 1.3 H Neut % (Auto) 78.8 H Lymph % (Auto) 6.7 L [place] % (Auto) 12.6 H Eos % (Auto) 0.6 Baso % (Auto) 0.0 Lymph # (Auto) 0.6 L [place] # (Auto) 1.1 Eos # (Auto) 0.1 Baso # (Auto) 0.0 Abs Immat Gran (auto) 0.11 H Absolute Neuts (auto) 6.8 Absolute Nucleated RBC 0.020 H Nucleated RBC % (auto) 0.2 PT INR Anion Gap Estim Creat Clear Calc Estimated GFR POC Glucose 154 H 185 H Fasting Glucose Calcium Total Bilirubin AST ALT Alkaline Phosphatase Total Protein Albumin C. difficile Toxin A&B C. difficile Interpret EBV Capsid Ag IgG Ab EBV Capsid Ag IgM Index EBV Nuclear Ag IgG Indx EBV Antibody Interp Blood Type Antibody Screen Crossmatch 05/08/21 05/08/21 05/08/21 05:42 07:24 07:42 MCV MCH MCHC RDW Plt Count MPV Immature Gran % (Auto) Neut % (Auto) Lymph % (Auto) [place] % (Auto) Eos % (Auto) Baso % (Auto) Lymph # (Auto) [place] # (Auto) Eos # (Auto) Baso # (Auto) Abs Immat Gran (auto) Absolute Neuts (auto) Absolute Nucleated RBC Nucleated RBC % (auto) PT INR Anion Gap 11 L Estim Creat Clear Calc 74.1 Estimated GFR > 60 POC Glucose 204 H Fasting Glucose 172 H Calcium 7.6 L Total Bilirubin 5.6 H AST 81 H ALT 57 H Alkaline Phosphatase 198 H Total Protein 5.0 L Albumin 2.2 L C. difficile Toxin A&B C. difficile Interpret EBV Capsid Ag IgG Ab EBV Capsid Ag IgM Index EBV Nuclear Ag IgG Indx EBV Antibody Interp Blood Type A Positive Antibody Screen NEGATIVE Crossmatch See Detail 05/08/21 07:42 MCV MCH MCHC RDW Plt Count MPV Immature Gran % (Auto) Neut % (Auto) Lymph % (Auto) [place] % (Auto) Eos % (Auto) Baso % (Auto) Lymph # (Auto) [place] # (Auto) Eos # (Auto) Baso # (Auto) Abs Immat Gran (auto) Absolute Neuts (auto) Absolute Nucleated RBC Nucleated RBC % (auto) PT 45.7 H INR 3.9 H Anion Gap Estim Creat Clear Calc Estimated GFR POC Glucose Fasting Glucose Calcium Total Bilirubin AST ALT Alkaline Phosphatase Total Protein Albumin C. difficile Toxin A&B C. difficile Interpret EBV Capsid Ag IgG Ab EBV Capsid Ag IgM Index EBV Nuclear Ag IgG Indx EBV Antibody Interp Blood Type Antibody Screen Crossmatch Microbiology Microbiology Results: Microbiology 05/05/21 03:06 Blood Culture - Final Blood - Venous Escherichia coli 05/05/21 03:06 Blood Culture - Final Blood - Venous Escherichia coli Assessment and Plan (1) Acute anemia: Status: Acute (2) Hepatitis: Status: Acute (3) Bacteremia, escherichia coli: Status: Acute (4) Hypothyroidism: Status: Acute Plan 50-year-old female with past medical history of liver cirrhosis secondary to cured hepatitis-C, hypertension, rheumatoid arthritis, hypothyroidism, Crohn's disease status post bowel resection x2 in the past who presents to the hospital with complaints of urinary symptoms, nausea, vomiting and diarrhea. 1. Acute anemia(multifactorial) -transfuse 2 units PRBCs..lasix 20 in between units -follow up CBC in am 2.Acute hepatitis/transmanitis( likely secondary to EColi bacteremia) - INR 3.79today...additional 10mg Vit K today -chesk INR in am; 3. ECOli bacteremis/UTI - will treat with Zosyn(3)....switch to Augmentin upon DC as per ID - follow urine cultures 4.Hypothyroidism - continue levothyroxine 5.History of opioid use disorder - continue methadone DVT prophylaxis: Lovenox patient will likely require 1- 2 midnights going forward to treat acute on chronic liver failure with VIT K and EColi bacteremia Quality Stroke Does the patient have a stroke diagnosis?: No VTE Prior VTE?: No VTE Risk Level:: Medical - moderate - high VTE Device Contraindication: Treatment Not Indicated VTE Drug Contraindication: N/A - Med Ordered
[2021-05-08] MEDS: 0.9 % Sodium Chloride Flush 3 ML SYRINGE IVFLUSH ×2 (10:09→22:16)
[2021-05-08 10:55] LABS: Glucose, Whole Blood 161 mg/dL (60-115)
[2021-05-08] MEDS: Morphine Sulfate 4 MG/ML CARTRIDGE IVPUSH ×2 (11:03→17:44)
[2021-05-08] MEDS: Potassium Chloride Packet 20 MEQ PACKET 40 MEQ PO ×2 (11:03→22:10)
[2021-05-08 13:41] LABS: IgA 472 mg/dL (47-310); IgG 1049 mg/dL (600-1640); IgM 83 mg/dL (50-300)
--- NOTE | 2021-05-08 14:27 | MHC.CLN ---
F/U DIET=DIABETIC 2999 KCAL. SUPPLEMENT GLUCERNA BID TO PROVIDE ADDITIONAL 474 KCAL, 20 G PROTEIN. STAGE II BLISTER TO LEFT HEEL. INTAKE AT MEALS APPEARS GOOD, 50-100%. MONITOR PO INTAKE CLOSELY.
[2021-05-08] MEDS: Phytonadione (Vit K1) 10 MG in 0.9 % Sodium Chloride 50 ML 51 MG IV (14:34)
[2021-05-08] MEDS: oxyCODONE HCl Immed Release 5 MG TABLET 10 MG PO ×3 (15:37→22:11)
[2021-05-08 16:32] LABS: Glucose, Whole Blood 136 mg/dL (60-115)
[2021-05-08 19:21] LABS: Anti Nuclear Antibody Screen NEGATIVE (NEGATIVE)
[2021-05-08 20:38] LABS: Glucose, Whole Blood 152 mg/dL (60-115)
[2021-05-08] MEDS: Atorvastatin Calcium 10 MG TABLET 5 MG PO (22:10)
[2021-05-09] VITALS (7 sets, daily range): BP systolic 119–140; BP diastolic 63–72; PULSE 87–90; RESP 14–20; TEMP 36.9–37.5; O2SAT 95–97
[2021-05-09] MEDS: Enoxaparin Sodium 40 MG/0.4 ML SYRINGE SUBCUT (00:26)
[2021-05-09] MEDS: Morphine Sulfate 4 MG/ML CARTRIDGE IVPUSH ×4 (00:26→22:21)
[2021-05-09] MEDS: Piperacillin Sodium/Tazobactam 3.375 GM in 0.9 % Sodium Chloride 50 ML IV ×4 (03:16→21:09)
[2021-05-09] MEDS: oxyCODONE HCl Immed Release 5 MG TABLET 10 MG PO ×3 (05:47→21:08)
[2021-05-09] MEDS: Levothyroxine Sodium 50 MCG TABLET PO (05:47)
[2021-05-09 06:39] LABS: MANUAL DIFF FLAG NO
[2021-05-09 06:48] LABS: Basophils Percent Auto 0.2 % (0-2); Eosinophils Percent Auto 0.3 % (0-4); Hematocrit 23.7 % (37.0-47.0); Hemoglobin 7.7 g/dl (12.0-16.0); Imm Gran Abs Auto 0.12 X10*3/uL (0.00-0.03); Imm Gran Pct Auto 1.2 % (0.0-0.4); Immature Retic Fraction 51.5 % (3.0-15.9); Lymphocytes Absolute Auto 0.7 X10*3/uL (1.2-4.9); Lymphocytes Percent Auto 7.5 % (20-40); Mean Corpuscular HGB Conc 32.5 g/dl (31.0-35.0); Mean Corpuscular Hemoglobin 29.2 pg (27.0-33.0); Mean Corpuscular Volume 89.8 fL (80.0-98.0); Mean Platelet Volume 12.8 fL (9.4-12.3); Monocytes Absolute Auto 1.2 X10*3/uL (0.1-1.2); Monocytes Percent Auto 11.9 % (2-11); NRBC Pct Auto 0.2 /100WBC (0.0-0.2); Neutrophils Absolute Auto 7.6 x10*3/uL (2.0-8.3); Neutrophils Percent Auto 78.9 % (45-73); Platelet Count 74 X10*3/uL (160-400); Red Blood Count 2.64 X10*6/uL (4.20-5.50); Red Cell Distribution Width 18.1 % (11.0-16.0); Reticulocyte Percent 2.2 % (0.5-1.8); Reticulocytes Absolute 0.059 X10*6/uL (0.026-0.095); White Blood Count 9.7 X10*3/uL (4.8-10.8)
[2021-05-09 06:51] LABS: INTERNATIONAL NORM RATIO 3.5 (0.9-1.1); Prothrombin Time 41.4 SEC (9.9-13.0)
[2021-05-09 07:19] LABS: Alanine Aminotransferase 61 U/L (0-31); Albumin Level 2.2 g/dL (3.5-5.0); Anion Gap 13 (12-20); Aspartate Amino Transferase 112 U/L (5-31); Bilirubin Total 6.4 mg/dL (0.0-1.0); Blood Urea Nitrogen 21 mg/dL (9-16); Calcium 7.6 mg/dL (8.4-10.2); Carbon Dioxide 26 mmol/L (22-29); Chloride 101 mmol/L (96-108); Creatinine Clr Calc Pharmacy 84.6; Estimated Glomerular Filt Rate > 60; Glucose Fasting 132 mg/dL (60-99); Sodium 136 mmol/L (135-145); Total Protein 5.4 g/dL (6.5-8.0)
[2021-05-09 07:26] LABS: Glucose, Whole Blood 121 mg/dL (60-115)
[2021-05-09 07:29] LABS: Bilirubin Direct 4.9 mg/dL (0.0-0.5)
[2021-05-09 07:42] LABS: Alkaline Phosphatase 255 U/L (39-117); Lactate Dehydrogenase 307 U/L (122-220); Potassium 3.9 mmol/L (3.3-5.1)
[2021-05-09] MEDS: 0.9 % Sodium Chloride Flush 3 ML SYRINGE IVFLUSH ×2 (08:02→14:53)
[2021-05-09] MEDS: Acyclovir 200 MG CAPSULE 400 MG PO (08:02)
[2021-05-09] MEDS: Omeprazole 40 MG CAPSULE.DR PO (08:02)
[2021-05-09] MEDS: Metoprolol Succinate ER 50 MG TAB.ER.24H PO (08:02)
[2021-05-09] MEDS: methADONE HCl 20 MG/2 ML ORAL.CONC 70 MG PO (08:03)
[2021-05-09] MEDS: Furosemide 20 MG/2 ML VIAL IVPUSH (08:03)
[2021-05-09] MEDS: Phytonadione (Vit K1) 10 MG in 0.9 % Sodium Chloride 50 ML 51 MG IV (09:39)
--- NOTE | 2021-05-09 09:41 | P.CONGS_ITS ---
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 She reports pain this location prior to admission and was found to have a small fluid collection at the lateral heel. This was previously aspirated with a needle several days ago. There is concerned that fluid collection has reaccumulated, therefore surgical consultation was requested for debridement of this left heel ulcer. 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 Other Mental health disorder Substance use disorder Family history: reviewed and not pertinent Surgical History Surgical History History of appendectomy History of bowel resection History of hernia repair Social History Social History Household Members: None Housing: Apartment Do you presently have visiting nurse or other home services: No Patient Tobacco Use Status: Current someday Tobacco user Tobacco use type: Cigarette Cigarettes Per Day: 4 Years Smoked: 17 years old Current occupational status: employed Meds Allergies Allergy/AdvReac Type Severity Reaction Status Date / Time ciprofloxacin [Cipro] Allergy Unknown swelling Verified 04/17/21 15:29 of the throat , hives Active Medications: Current Medications Acetaminophen (Acetaminophen 325 Mg Tablet) 650 mg PO Q8H PRN PRN Reason: Pain, Mild (Pain Scale 1-3) Last Admin: 05/08/21 02:39 Dose: 650 mg Documented by: Acyclovir (Acyclovir 200 Mg Capsule) 400 mg PO DAILY [facility] Last Admin: 05/09/21 08:02 Dose: 400 mg Documented by: Atorvastatin Calcium (Atorvastatin Calcium 10 Mg Tablet) 5 mg PO BEDTIME [facility] Last Admin: 05/08/21 22:10 Dose: 5 mg Documented by: Dextrose (Dextrose 50 % 25 Gm/50 Ml Vial) 25 gm IVPUSH Q15M PRN; Protocol PRN Reason: per Hypoglycemia Standing Ord. Docusate Sodium (Docusate Sodium 100 Mg Capsule) 100 mg PO DAILY PRN PRN Reason: Constipation Enoxaparin Sodium (Enoxaparin Sodium 40 Mg/0.4 Ml Syringe) 40 mg SUBCUT Q24H [facility] Last Admin: 05/09/21 00:26 Dose: 40 mg Documented by: Furosemide (Furosemide 20 Mg/2 Ml Vial) 20 mg IVPUSH DAILY [facility]; Protocol Last Admin: 05/09/21 08:03 Dose: 20 mg Documented by: Glucose (Glucose Gel 15 Gm Gel..Gram.) 15 gm PO Q15M PRN; Protocol PRN Reason: per Hypoglycemia Standing Ord. Piperacillin Sod/Tazobactam (Sod 3.375 gm/ Sodium Chloride) 50 mls @ 100 mls/hr IV Q6H [facility] Last Infusion: 05/09/21 09:01 Dose: Infused Documented by: Insulin Human Lispro (Insulin Lispro 100 Unit/Ml 3 Ml Vial) 0 unit SUBCUT QIDACHS [facility]; Protocol Last Admin: 05/09/21 07:26 Dose: Not Given Documented by: Levothyroxine Sodium (Levothyroxine Sodium 50 Mcg Tablet) 50 mcg PO DAILY@0600 [facility] Last Admin: 05/09/21 05:47 Dose: 50 mcg Documented by: Methadone HCl (Methadone Hcl 20 Mg/2 Ml Oral.Conc) 70 mg PO DAILY [facility] Last Admin: 05/09/21 08:03 Dose: 70 mg Documented by: Metoprolol Succinate (Metoprolol Succinate Er 50 Mg Tab.Er.24h) 50 mg PO DAILY [facility]; Protocol Last Admin: 05/09/21 08:02 Dose: 50 mg Documented by: Morphine Sulfate (Morphine Sulfate 4 Mg/Ml Cartridge) 4 mg IVPUSH Q6H PRN; Protocol PRN Reason: Pain, Moderate (Pain Scale 4-6 Last Admin: 05/09/21 08:03 Dose: 4 mg Documented by: Omeprazole (Omeprazole 40 Mg Capsule.Dr) 40 mg PO DAILY [facility] Last Admin: 05/09/21 08:02 Dose: 40 mg Documented by: Ondansetron HCl (Ondansetron Hcl 4 Mg/2 Ml Vial) 4 mg IVPUSH Q4H PRN PRN Reason: Nausea and Vomiting Last Admin: 05/06/21 18:00 Dose: 4 mg Documented by: Oxycodone HCl (Oxycodone Hcl Immed Release 5 Mg Tablet) 10 mg PO Q4H PRN PRN Reason: Pain, Moderate (Pain Scale 4-6 Last Admin: 05/09/21 05:47 Dose: 10 mg Documented by: Sodium Chloride (0.9 % Sodium Chloride Flush 3 Ml Syringe) 3 ml IVFLUSH QSHIFT [facility] Last Admin: 05/09/21 08:02 Dose: 3 ml Documented by: Home Medications Medication Instructions Recorded Confirmed Last Taken Type celecoxib 200 mg capsule 200 mg PO 11/30/19 04/17/21 Unknown History tofacitinib 5 mg tablet 5 mg PO BID 11/30/19 05/04/21 Unknown History methadone 10 mg/mL oral concentrate 71 mg PO DAILY 05/04/21 05/04/21 Unknown History Physical Exam Vital Signs: Vital Signs: Last Vital Signs Temp 99.2 F 05/09/21 07:44 Pulse 87 05/09/21 07:44 Resp 18 05/09/21 08:03 BP 140/72 H 05/09/21 07:44 Pulse Ox 97 05/09/21 07:44 BMI result Body Mass Index 35.4 Const: General: no acute distress, well developed and alert Nutritional Appearance: obese Orientation/consciousness: patient oriented x3 Limitations: no limitations HEENT: Head: Yes normocephalic and Yes atraumatic Resp: Effort & Inspection: normal respiratory effort, no audible wheezes, no cough and no respiratory distress Skin: Other: Warm, dry, normal color General skin exam: no rashes or lesions noted Neuro: General: patient oriented x3 Extrem: Other: Left lateral heel with a 2 by 2.5 cm area of blistered skin, with a small rim of redness surrounding the blister, tender to palpation. No definite fluctuance is appreciated. No other necrotic ulcers are identified. Ankle/foot/toe images: 1. Site of blistered skin left lateral heel Results Labs Result diagrams: 05/09/21 05:58 05/09/21 05:58 Labs: Abnormal lab results 05/06/21 05/08/21 05/08/21 Range/Units 05:34 07:42 10:48 RBC (4.20-5.50) X10*6/uL Hgb (12.0-16.0) g/dl Hct (37.0-47.0) % RDW (11.0-16.0) % Plt Count (160-400) X10*3/uL MPV (9.4-12.3) fL Immature Gran % (Auto) (0.0-0.4) % Neut % (Auto) (45-73) % Lymph % (Auto) (20-40) % [place] % (Auto) (2-11) % Lymph # (Auto) (1.2-4.9) X10*3/uL Abs Immat Gran (auto) (0.00-0.03) X10*3/uL Absolute Nucleated RBC (0.0-0.012) X10*3/uL Percent Retic (0.5-1.8) % Immature Retic Fraction (3.0-15.9) % PT (9.9-13.0) SEC INR (0.9-1.1) BUN (9-16) mg/dL POC Glucose 161 H (60-115) mg/dL Fasting Glucose (60-99) mg/dL Calcium (8.4-10.2) mg/dL Total Bilirubin (0.0-1.0) mg/dL Direct Bilirubin (0.0-0.5) mg/dL AST (5-31) U/L ALT (0-31) U/L Alkaline Phosphatase (39-117) U/L Lactate Dehydrogenase (122-220) U/L Total Protein (6.5-8.0) g/dL Albumin (3.5-5.0) g/dL IgA Total 472 H (47-310) mg/dL Crossmatch See Detail 05/08/21 05/08/21 05/09/21 Range/Units 16:28 20:22 05:58 RBC (4.20-5.50) X10*6/uL Hgb (12.0-16.0) g/dl Hct (37.0-47.0) % RDW (11.0-16.0) % Plt Count (160-400) X10*3/uL MPV (9.4-12.3) fL Immature Gran % (Auto) (0.0-0.4) % Neut % (Auto) (45-73) % Lymph % (Auto) (20-40) % [place] % (Auto) (2-11) % Lymph # (Auto) (1.2-4.9) X10*3/uL Abs Immat Gran (auto) (0.00-0.03) X10*3/uL Absolute Nucleated RBC (0.0-0.012) X10*3/uL Percent Retic (0.5-1.8) % Immature Retic Fraction (3.0-15.9) % PT 41.4 H (9.9-13.0) SEC INR 3.5 H (0.9-1.1) BUN (9-16) mg/dL POC Glucose 136 H 152 H (60-115) mg/dL Fasting Glucose (60-99) mg/dL Calcium (8.4-10.2) mg/dL Total Bilirubin (0.0-1.0) mg/dL Direct Bilirubin (0.0-0.5) mg/dL AST (5-31) U/L ALT (0-31) U/L Alkaline Phosphatase (39-117) U/L Lactate Dehydrogenase (122-220) U/L Total Protein (6.5-8.0) g/dL Albumin (3.5-5.0) g/dL IgA Total (47-310) mg/dL Crossmatch 05/09/21 05/09/21 05/09/21 Range/Units 05:58 05:58 05:58 RBC 2.64 L (4.20-5.50) X10*6/uL Hgb 7.7 L D (12.0-16.0) g/dl Hct 23.7 L (37.0-47.0) % RDW 18.1 H (11.0-16.0) % Plt Count 74 L (160-400) X10*3/uL MPV 12.8 H (9.4-12.3) fL Immature Gran % (Auto) 1.2 H (0.0-0.4) % Neut % (Auto) 78.9 H (45-73) % Lymph % (Auto) 7.5 L (20-40) % [place] % (Auto) 11.9 H (2-11) % Lymph # (Auto) 0.7 L (1.2-4.9) X10*3/uL Abs Immat Gran (auto) 0.12 H (0.00-0.03) X10*3/uL Absolute Nucleated RBC 0.020 H (0.0-0.012) X10*3/uL Percent Retic 2.2 H (0.5-1.8) % Immature Retic Fraction 51.5 H (3.0-15.9) % PT (9.9-13.0) SEC INR (0.9-1.1) BUN 21 H (9-16) mg/dL POC Glucose (60-115) mg/dL Fasting Glucose 132 H (60-99) mg/dL Calcium 7.6 L (8.4-10.2) mg/dL Total Bilirubin 6.4 H (0.0-1.0) mg/dL Direct Bilirubin 4.9 H (0.0-0.5) mg/dL AST 112 H (5-31) U/L ALT 61 H (0-31) U/L Alkaline Phosphatase 255 H D (39-117) U/L Lactate Dehydrogenase 307 H (122-220) U/L Total Protein 5.4 L (6.5-8.0) g/dL Albumin 2.2 L (3.5-5.0) g/dL IgA Total (47-310) mg/dL Crossmatch 05/09/21 Range/Units 07:10 RBC (4.20-5.50) X10*6/uL Hgb (12.0-16.0) g/dl Hct (37.0-47.0) % RDW (11.0-16.0) % Plt Count (160-400) X10*3/uL MPV (9.4-12.3) fL Immature Gran % (Auto) (0.0-0.4) % Neut % (Auto) (45-73) % Lymph % (Auto) (20-40) % [place] % (Auto) (2-11) % Lymph # (Auto) (1.2-4.9) X10*3/uL Abs Immat Gran (auto) (0.00-0.03) X10*3/uL Absolute Nucleated RBC (0.0-0.012) X10*3/uL Percent Retic (0.5-1.8) % Immature Retic Fraction (3.0-15.9) % PT (9.9-13.0) SEC INR (0.9-1.1) BUN (9-16) mg/dL POC Glucose 121 H (60-115) mg/dL Fasting Glucose (60-99) mg/dL Calcium (8.4-10.2) mg/dL Total Bilirubin (0.0-1.0) mg/dL Direct Bilirubin (0.0-0.5) mg/dL AST (5-31) U/L ALT (0-31) U/L Alkaline Phosphatase (39-117) U/L Lactate Dehydrogenase (122-220) U/L Total Protein (6.5-8.0) g/dL Albumin (3.5-5.0) g/dL IgA Total (47-310) mg/dL Crossmatch Short CBC 05/09/21 Range/Units 05:58 WBC 9.7 (4.8-10.8) X10*3/uL Hgb 7.7 L D (12.0-16.0) g/dl Hct 23.7 L (37.0-47.0) % Plt Count 74 L (160-400) X10*3/uL BMP 05/09/21 05:58 Sodium 136 Potassium 3.9 D Chloride 101 Carbon Dioxide 26 BUN 21 H Creatinine 0.85 Calcium 7.6 L Liver Function 05/09/21 05/09/21 Range/Units 05:58 05:58 Total Bilirubin 6.4 H (0.0-1.0) mg/dL Direct Bilirubin 4.9 H (0.0-0.5) mg/dL AST 112 H (5-31) U/L ALT 61 H (0-31) U/L Alkaline Phosphatase 255 H D (39-117) U/L Albumin 2.2 L (3.5-5.0) g/dL Urine 05/04/21 05/04/21 Range/Units 12:15 21:33 Urine Color DK YELLOW Cancelled Urine Appearance CLOUDY Cancelled Urine pH 5.5 Cancelled (5.0-8.0) Ur Specific [place] 1.020 Cancelled (1.005-1.025) Urine Protein NEG Cancelled (NEG-TRACE) MG/DL Urine Glucose (UA) NEG Cancelled (NEG) MG/DL All other labs normal. Assessment and Plan (1) Pressure ulcer of foot, stage 1: Status: Acute Plan 50-year-old female patient with multiple medical problems presenting with a painful blister in the left lateral heel. This was previously drained but now may have reaccumulated. Surgical consultation was requested for debridement of this blister skin. I reviewed the procedure, risks, and alternatives regarding debridement of the skin blister and she consents to the procedure. This will be performed at the bedside. Procedures Date of Service Date of Service: 05/09/21 Abscess I/D Consent for Procedure: Elective - informed consent obtained Site: foot (Lateral heel) Side (if applicable): left Sedation/analgesia: none Technique: other (2 x 2 cm area of blistered skin was excised using a scissors and forceps. No extension below the epidermis was noted. There was no exposed subcutaneous tissue. No underlying abscess was appreciate.) Amount of fluid (mL): 0 Packing used?: none Additional comments: Foam dressing applied
[2021-05-09 11:31] LABS: Soluble Liver Ag Autoantibody <20.1 U (0.0-20.0)
[2021-05-09 11:36] LABS: Glucose, Whole Blood 156 mg/dL (60-115)
--- NOTE | 2021-05-09 11:38 | P.PNIM_ITS ---
Subjective Subjective Date of Service: 05/09/21 Interval History: Episode of shaking chills and fever to 101 during 1st in her blood. Transfusion reaction ordered. Negative per pathology. This a.m. patient feels good and no focal complaints except her heel Review of Systems denies chest pain Denies shortness of breath Denies nausea vomiting diarrhea Physical Exam Vital Signs: Vital Signs: Last Vital Signs Temp 99.2 F 05/09/21 07:44 Pulse 87 05/09/21 07:44 Resp 18 05/09/21 08:03 BP 140/72 H 05/09/21 07:44 Pulse Ox 97 05/09/21 07:44 BMI result Body Mass Index 35.4 Const: Other: no acute distress Eyes: Other: anicteric Resp: Other: clear to auscultation bilaterally no rales rhonchi or wheezes Cardio: Other: no S4; positive S1-S2; no S3 murmurs rubs or gallops GI: Other: soft nontender nondistended normoactive bowel sounds Extrem: Other: no edema bilaterally. 2cm round blistered area lat aspect left heel Objective Data Active Medications Acetaminophen (Acetaminophen 325 Mg Tablet) 650 mg PO Q8H PRN PRN Reason: Pain, Mild (Pain Scale 1-3) Last Admin: 05/08/21 02:39 Dose: 650 mg Documented by: MEGHANN Acyclovir (Acyclovir 200 Mg Capsule) 400 mg PO DAILY [facility] Last Admin: 05/09/21 08:02 Dose: 400 mg Documented by: COTEMA Atorvastatin Calcium (Atorvastatin Calcium 10 Mg Tablet) 5 mg PO BEDTIME [facility] Last Admin: 05/08/21 22:10 Dose: 5 mg Documented by: KYRA Dextrose (Dextrose 50 % 25 Gm/50 Ml Vial) 25 gm IVPUSH Q15M PRN; Protocol PRN Reason: per Hypoglycemia Standing Ord. Docusate Sodium (Docusate Sodium 100 Mg Capsule) 100 mg PO DAILY PRN PRN Reason: Constipation Enoxaparin Sodium (Enoxaparin Sodium 40 Mg/0.4 Ml Syringe) 40 mg SUBCUT Q24H [facility] Last Admin: 05/09/21 00:26 Dose: 40 mg Documented by: KYRA Furosemide (Furosemide 20 Mg/2 Ml Vial) 20 mg IVPUSH DAILY [facility]; Protocol Last Admin: 05/09/21 08:03 Dose: 20 mg Documented by: CYNTHIA Glucose (Glucose Gel 15 Gm Gel..Gram.) 15 gm PO Q15M PRN; Protocol PRN Reason: per Hypoglycemia Standing Ord. Piperacillin Sod/Tazobactam (Sod 3.375 gm/ Sodium Chloride) 50 mls @ 100 mls/hr IV Q6H [facility] Last Infusion: 05/09/21 09:01 Dose: 0 mls/hr Documented by: CYNTHIA Insulin Human Lispro (Insulin Lispro 100 Unit/Ml 3 Ml Vial) 0 unit SUBCUT QIDACHS [facility]; Protocol Last Admin: 05/09/21 07:26 Dose: Not Given Documented by: CYNTHIA Non-Admin Reason: No Insulin Coverage Levothyroxine Sodium (Levothyroxine Sodium 50 Mcg Tablet) 50 mcg PO DAILY@0600 [facility] Last Admin: 05/09/21 05:47 Dose: 50 mcg Documented by: KYRA Methadone HCl (Methadone Hcl 20 Mg/2 Ml Oral.Conc) 70 mg PO DAILY [facility] Last Admin: 05/09/21 08:03 Dose: 70 mg Documented by: CYNTHIA Metoprolol Succinate (Metoprolol Succinate Er 50 Mg Tab.Er.24h) 50 mg PO DAILY [facility]; Protocol Last Admin: 05/09/21 08:02 Dose: 50 mg Documented by: CYNTHIA Morphine Sulfate (Morphine Sulfate 4 Mg/Ml Cartridge) 4 mg IVPUSH Q6H PRN; Protocol PRN Reason: Pain, Moderate (Pain Scale 4-6 Last Admin: 05/09/21 08:03 Dose: 4 mg Documented by: CYNTHIA Omeprazole (Omeprazole 40 Mg Capsule.Dr) 40 mg PO DAILY [facility] Last Admin: 05/09/21 08:02 Dose: 40 mg Documented by: CAROLYNEMA Ondansetron HCl (Ondansetron Hcl 4 Mg/2 Ml Vial) 4 mg IVPUSH Q4H PRN PRN Reason: Nausea and Vomiting Last Admin: 05/06/21 18:00 Dose: 4 mg Documented by: LYSZ Oxycodone HCl (Oxycodone Hcl Immed Release 5 Mg Tablet) 10 mg PO Q4H PRN PRN Reason: Pain, Moderate (Pain Scale 4-6 Last Admin: 05/09/21 05:47 Dose: 10 mg Documented by: KYRA Sodium Chloride (0.9 % Sodium Chloride Flush 3 Ml Syringe) 3 ml IVFLUSH QSHIFT [facility] Last Admin: 05/09/21 08:02 Dose: 3 ml Documented by: CYNTHIA Labs CBC & Chem 7: 05/09/21 05:58 05/09/21 05:58 Labs: Laboratory Results - last 24 hr 05/06/21 05/06/21 05/06/21 05:34 05:34 05:34 MCV MCH MCHC RDW Plt Count MPV Immature Gran % (Auto) Neut % (Auto) Lymph % (Auto) [place] % (Auto) Eos % (Auto) Baso % (Auto) Lymph # (Auto) [place] # (Auto) Eos # (Auto) Baso # (Auto) Abs Immat Gran (auto) Absolute Neuts (auto) Absolute Nucleated RBC Nucleated RBC % (auto) Absolute Retic Percent Retic Immature Retic Fraction Retic Hgb Equivalent PT INR Anion Gap Estim Creat Clear Calc Estimated GFR POC Glucose Fasting Glucose Calcium Total Bilirubin Direct Bilirubin AST ALT Alkaline Phosphatase Lactate Dehydrogenase Total Protein Albumin IgG Total 1049 IgA Total 472 H IgM 83 CATER[place] Screen NEGATIVE Soluble Liver Antigen <20.1 STEPHANIE, Polyspecific Positive STEPHANIE Work-up Crossmatch Clerical Work Check Hemolysis Bld Bag Check Icterus Blood Bag Check Post-Trans Blood Type Post-Trans STEPHANIE Poly Post-Trans Add Testing Post-Tx Rxn STEPHANIE Result Pathologist Comment BBK 05/08/21 05/08/21 05/08/21 07:42 14:20 16:28 MCV MCH MCHC RDW Plt Count MPV Immature Gran % (Auto) Neut % (Auto) Lymph % (Auto) [place] % (Auto) Eos % (Auto) Baso % (Auto) Lymph # (Auto) [place] # (Auto) Eos # (Auto) Baso # (Auto) Abs Immat Gran (auto) Absolute Neuts (auto) Absolute Nucleated RBC Nucleated RBC % (auto) Absolute Retic Percent Retic Immature Retic Fraction Retic Hgb Equivalent PT INR Anion Gap Estim Creat Clear Calc Estimated GFR POC Glucose 136 H Fasting Glucose Calcium Total Bilirubin Direct Bilirubin AST ALT Alkaline Phosphatase Lactate Dehydrogenase Total Protein Albumin IgG Total IgA Total IgM [place] Screen Soluble Liver Antigen STEPHANIE, Polyspecific Positive STEPHANIE Work-up Crossmatch See Detail Clerical Work Check No Error Found Hemolysis Bld Bag Check None in Pre and Post Icterus Blood Bag Check None in Pre and Post Post-Trans Blood Type A Positive Post-Trans STEPHANIE Poly NEGATIVE Post-Trans Add Testing No Post-Tx Rxn STEPHANIE Result TNP Pathologist Comment YVES JONES 05/08/21 05/09/21 05/09/21 20:22 05:58 05:58 MCV 89.8 MCH 29.2 MCHC 32.5 RDW 18.1 H Plt Count 74 L MPV 12.8 H Immature Gran % (Auto) 1.2 H Neut % (Auto) 78.9 H Lymph % (Auto) 7.5 L [place] % (Auto) 11.9 H Eos % (Auto) 0.3 Baso % (Auto) 0.2 Lymph # (Auto) 0.7 L [place] # (Auto) 1.2 Eos # (Auto) 0.0 Baso # (Auto) 0.0 Abs Immat Gran (auto) 0.12 H Absolute Neuts (auto) 7.6 Absolute Nucleated RBC 0.020 H Nucleated RBC % (auto) 0.2 Absolute Retic 0.059 Percent Retic 2.2 H Immature Retic Fraction 51.5 H Retic Hgb Equivalent 30.0 PT 41.4 H INR 3.5 H Anion Gap Estim Creat Clear Calc Estimated GFR POC Glucose 152 H Fasting Glucose Calcium Total Bilirubin Direct Bilirubin AST ALT Alkaline Phosphatase Lactate Dehydrogenase Total Protein Albumin IgG Total IgA Total IgM [place] Screen Soluble Liver Antigen STEPHANIE, Polyspecific Positive STEPHANIE Work-up Crossmatch Clerical Work Check Hemolysis Bld Bag Check Icterus Blood Bag Check Post-Trans Blood Type Post-Trans STEPHANIE Poly Post-Trans Add Testing Post-Tx Rxn STEPHANIE Result Pathologist Comment YVES 05/09/21 05/09/21 05/09/21 05:58 05:58 05:58 MCV MCH MCHC RDW Plt Count MPV Immature Gran % (Auto) Neut % (Auto) Lymph % (Auto) [place] % (Auto) Eos % (Auto) Baso % (Auto) Lymph # (Auto) [place] # (Auto) Eos # (Auto) Baso # (Auto) Abs Immat Gran (auto) Absolute Neuts (auto) Absolute Nucleated RBC Nucleated RBC % (auto) Absolute Retic Percent Retic Immature Retic Fraction Retic Hgb Equivalent PT INR Anion Gap 13 Estim Creat Clear Calc 84.6 Estimated GFR > 60 POC Glucose Fasting Glucose 132 H Calcium 7.6 L Total Bilirubin 6.4 H Direct Bilirubin 4.9 H AST 112 H ALT 61 H Alkaline Phosphatase 255 H D Lactate Dehydrogenase 307 H Total Protein 5.4 L Albumin 2.2 L IgG Total IgA Total IgM [place] Screen Soluble Liver Antigen STEPHANIE, Polyspecific NEGATIVE Positive STEPHANIE Work-up TNP Crossmatch Clerical Work Check Hemolysis Bld Bag Check Icterus Blood Bag Check Post-Trans Blood Type Post-Trans STEPHANIE Poly Post-Trans Add Testing Post-Tx Rxn STEPHANIE Result Pathologist Comment YEVS 05/09/21 05/09/21 07:10 11:33 MCV MCH MCHC RDW Plt Count MPV Immature Gran % (Auto) Neut % (Auto) Lymph % (Auto) [place] % (Auto) Eos % (Auto) Baso % (Auto) Lymph # (Auto) [place] # (Auto) Eos # (Auto) Baso # (Auto) Abs Immat Gran (auto) Absolute Neuts (auto) Absolute Nucleated RBC Nucleated RBC % (auto) Absolute Retic Percent Retic Immature Retic Fraction Retic Hgb Equivalent PT INR Anion Gap Estim Creat Clear Calc Estimated GFR POC Glucose 121 H 156 H Fasting Glucose Calcium Total Bilirubin Direct Bilirubin AST ALT Alkaline Phosphatase Lactate Dehydrogenase Total Protein Albumin IgG Total IgA Total IgM [place] Screen Soluble Liver Antigen STEPHANIE, Polyspecific Positive STEPHANIE Work-up Crossmatch Clerical Work Check Hemolysis Bld Bag Check Icterus Blood Bag Check Post-Trans Blood Type Post-Trans STEPHANIE Poly Post-Trans Add Testing Post-Tx Rxn STEPHANIE Result Pathologist Comment YVES Assessment and Plan (1) Acute anemia: Status: Acute (2) Hepatitis: Status: Acute (3) Bacteremia, escherichia coli: Status: Acute Plan 50-year-old female with past medical history of liver cirrhosis secondary to cured hepatitis-C, hypertension, rheumatoid arthritis, hypothyroidism, Crohn's disease status post bowel resection x2 in the past who presents to the hospital with complaints of urinary symptoms, nausea, vomiting and diarrhea. 1. Acute anemia(multifactorial) -good response to 1 unit. Asymptomatic -follow up CBC in am 2.Acute hepatitis/transmanitis( likely secondary to EColi bacteremia) - INR 3.5 today...additional 10mg Vit K today -chesk INR in am; 3. ECOli bacteremis/UTI - will treat with Zosyn(4)....switch to Augmentin upon DC as per ID - follow urine cultures 4.Hypothyroidism - continue levothyroxine 5.History of opioid use disorder - continue methadone 6. Blister left heel -debrided by surgery (appreciated) -continue foam dressing DVT prophylaxis: Lovenox patient will likely require 1 midnights going forward to treat acute on chronic liver failure with VIT K and EColi bacteremia Quality Stroke Does the patient have a stroke diagnosis?: No VTE Prior VTE?: No VTE Risk Level:: Medical - moderate - high VTE Device Contraindication: Treatment Not Indicated VTE Drug Contraindication: N/A - Med Ordered
[2021-05-09] MEDS: Insulin Lispro 100 UNIT/ML 3 ML VIAL SUBCUT (12:29)
[2021-05-09 16:53] LABS: Glucose, Whole Blood 130 mg/dL (60-115)
[2021-05-09 21:03] LABS: Glucose, Whole Blood 136 mg/dL (60-115)
[2021-05-09] MEDS: Atorvastatin Calcium 10 MG TABLET 5 MG PO (21:08)
[2021-05-10] MEDS: 0.9 % Sodium Chloride Flush 3 ML SYRINGE IVFLUSH ×2 (00:05→07:58)
[2021-05-10] MEDS: Piperacillin Sodium/Tazobactam 3.375 GM in 0.9 % Sodium Chloride 50 ML IV ×2 (03:04→08:00)
[2021-05-10] MEDS: Enoxaparin Sodium 40 MG/0.4 ML SYRINGE SUBCUT (03:04)
[2021-05-10 03:44] VITALS: BP 136/68; PULSE 85; RESP 16; TEMP 37.2; O2SAT 99
[2021-05-10] MEDS: Levothyroxine Sodium 50 MCG TABLET PO (05:45)
[2021-05-10] MEDS: oxyCODONE HCl Immed Release 5 MG TABLET 10 MG PO (05:45)
[2021-05-10 05:56] LABS: MANUAL DIFF FLAG NO
[2021-05-10 06:04] LABS: Basophils Percent Auto 0.2 % (0-2); Eosinophils Absolute Auto 0.1 X10*3/uL (0.0-0.4); Eosinophils Percent Auto 0.6 % (0-4); Hematocrit 24.8 % (37.0-47.0); Hemoglobin 7.8 g/dl (12.0-16.0); Imm Gran Abs Auto 0.11 X10*3/uL (0.00-0.03); Imm Gran Pct Auto 1.2 % (0.0-0.4); Lymphocytes Absolute Auto 0.8 X10*3/uL (1.2-4.9); Lymphocytes Percent Auto 8.8 % (20-40); Mean Corpuscular HGB Conc 31.5 g/dl (31.0-35.0); Mean Corpuscular Hemoglobin 28.6 pg (27.0-33.0); Mean Corpuscular Volume 90.8 fL (80.0-98.0); Monocytes Absolute Auto 0.9 X10*3/uL (0.1-1.2); Monocytes Percent Auto 9.7 % (2-11); Neutrophils Absolute Auto 7.5 x10*3/uL (2.0-8.3); Neutrophils Percent Auto 79.5 % (45-73); Platelet Count 104 X10*3/uL (160-400); Red Blood Count 2.73 X10*6/uL (4.20-5.50); Red Cell Distribution Width 18.7 % (11.0-16.0); White Blood Count 9.4 X10*3/uL (4.8-10.8)
[2021-05-10 06:29] LABS: INTERNATIONAL NORM RATIO 3.2 (0.9-1.1); Prothrombin Time 37.4 SEC (9.9-13.0)
[2021-05-10 06:30] LABS: Alanine Aminotransferase 69 U/L (0-31); Albumin Level 2.3 g/dL (3.5-5.0); Alkaline Phosphatase 298 U/L (39-117); Anion Gap 12 (12-20); Aspartate Amino Transferase 146 U/L (5-31); Bilirubin Total 6.7 mg/dL (0.0-1.0); Blood Urea Nitrogen 21 mg/dL (9-16); Calcium 8.1 mg/dL (8.4-10.2); Carbon Dioxide 28 mmol/L (22-29); Chloride 101 mmol/L (96-108); Creatinine Clr Calc Pharmacy 78.2; Estimated Glomerular Filt Rate > 60; Glucose Fasting 161 mg/dL (60-99); Potassium 3.7 mmol/L (3.3-5.1); Sodium 137 mmol/L (135-145); Total Protein 5.7 g/dL (6.5-8.0)
[2021-05-10 07:15] LABS: Glucose, Whole Blood 147 mg/dL (60-115)
[2021-05-10 07:40] VITALS: BP 137/72; PULSE 90; RESP 18; TEMP 37.5; O2SAT 97
--- NOTE | 2021-05-10 07:40 | HE.PHANOTE ---
Patient has bacteremia, and still is febrile, would cont zosyn for now, switch to augmentin (per Dr. Soto recommendation) when clinically stable.
[2021-05-10 07:59] VITALS: RESP 18
[2021-05-10] MEDS: Morphine Sulfate 4 MG/ML CARTRIDGE IVPUSH (07:59)
[2021-05-10] MEDS: Omeprazole 40 MG CAPSULE.DR PO (07:59)
[2021-05-10] MEDS: Furosemide 20 MG/2 ML VIAL IVPUSH (07:59)
[2021-05-10] MEDS: methADONE HCl 20 MG/2 ML ORAL.CONC 70 MG PO (07:59)
[2021-05-10] MEDS: Metoprolol Succinate ER 50 MG TAB.ER.24H PO (07:59)
[2021-05-10] MEDS: Acyclovir 200 MG CAPSULE 400 MG PO (07:59)
--- NOTE | 2021-05-10 09:59 | PM.PNGS ---
Subjective Subjective Date of Service: 05/10/21 Interval history: Reports some soreness and itchiness in the left heel wound. Generally feels better and reports decreased swelling in the left foot Physical Exam Vital Signs: Vital Signs: Last Vital Signs Temp 99.5 F 05/10/21 07:40 Pulse 90 05/10/21 07:40 Resp 18 05/10/21 07:59 BP 137/72 05/10/21 07:40 Pulse Ox 97 05/10/21 07:40 BMI result Body Mass Index 35.4 Const: General: no acute distress Nutritional Appearance: obese Orientation/consciousness: patient oriented x3 Limitations: no limitations Resp: Effort & Inspection: normal respiratory effort Neuro: General: patient oriented x3 Extrem: Other: Left foot wound open with a rim of erythema surrounding. No dressing noted on wound. Wound redressed with a pink foam dressing. Objective Data Active Medications Acetaminophen (Acetaminophen 325 Mg Tablet) 650 mg PO Q8H PRN PRN Reason: Pain, Mild (Pain Scale 1-3) Last Admin: 05/08/21 02:39 Dose: 650 mg Documented by: MEGHANN Acyclovir (Acyclovir 200 Mg Capsule) 400 mg PO DAILY [facility] [place] Last Admin: 05/10/21 07:59 Dose: 400 mg Documented by: CYNTHIA Atorvastatin Calcium (Atorvastatin Calcium 10 Mg Tablet) 5 mg PO BEDTIME [facility] [place] Last Admin: 05/09/21 21:08 Dose: 5 mg Documented by: KYRA Dextrose (Dextrose 50 % 25 Gm/50 Ml Vial) 25 gm IVPUSH Q15M PRN; Protocol PRN Reason: per Hypoglycemia Standing Ord. Docusate Sodium (Docusate Sodium 100 Mg Capsule) 100 mg PO DAILY PRN PRN Reason: Constipation Enoxaparin Sodium (Enoxaparin Sodium 40 Mg/0.4 Ml Syringe) 40 mg SUBCUT Q24H [facility] [place] Last Admin: 05/10/21 03:04 Dose: 40 mg Documented by: KYRA Furosemide (Furosemide 20 Mg/2 Ml Vial) 20 mg IVPUSH DAILY [facility] [place]; Protocol Last Admin: 05/10/21 07:59 Dose: 20 mg Documented by: CAROLYNEMA Glucose (Glucose Gel 15 Gm Gel..Gram.) 15 gm PO Q15M PRN; Protocol PRN Reason: per Hypoglycemia Standing Ord. Piperacillin Sod/Tazobactam (Sod 3.375 gm/ Sodium Chloride) 50 mls @ 100 mls/hr IV Q6H [facility] [place] Last Infusion: 05/10/21 08:46 Dose: 0 mls/hr Documented by: COTEMA Phytonadione 10 mg/ Sodium (Chloride) 51 mls @ 51 mls/hr IV ONCE ONE Stop: 05/10/21 10:51 Insulin Human Lispro (Insulin Lispro 100 Unit/Ml 3 Ml Vial) 0 unit SUBCUT QIDACHS [facility] [place]; Protocol Last Admin: 05/10/21 07:19 Dose: Not Given Documented by: CYNTHIA Non-Admin Reason: No Insulin Coverage Levothyroxine Sodium (Levothyroxine Sodium 50 Mcg Tablet) 50 mcg PO DAILY@0600 [facility] [place] Last Admin: 05/10/21 05:45 Dose: 50 mcg Documented by: KYRA Methadone HCl (Methadone Hcl 20 Mg/2 Ml Oral.Conc) 70 mg PO DAILY [facility] [place] Last Admin: 05/10/21 07:59 Dose: 70 mg Documented by: CYNTHIA Metoprolol Succinate (Metoprolol Succinate Er 50 Mg Tab.Er.24h) 50 mg PO DAILY [facility] [place]; Protocol Last Admin: 05/10/21 07:59 Dose: 50 mg Documented by: CYNTHIA Morphine Sulfate (Morphine Sulfate 4 Mg/Ml Cartridge) 4 mg IVPUSH Q6H PRN; Protocol PRN Reason: Pain, Moderate (Pain Scale 4-6 Last Admin: 05/10/21 07:59 Dose: 4 mg Documented by: CYNTHIA Omeprazole (Omeprazole 40 Mg Capsule.Dr) 40 mg PO DAILY [facility] [place] Last Admin: 05/10/21 07:59 Dose: 40 mg Documented by: CYNTHIA Ondansetron HCl (Ondansetron Hcl 4 Mg/2 Ml Vial) 4 mg IVPUSH Q4H PRN PRN Reason: Nausea and Vomiting Last Admin: 05/06/21 18:00 Dose: 4 mg Documented by: LYSZ Oxycodone HCl (Oxycodone Hcl Immed Release 5 Mg Tablet) 10 mg PO Q4H PRN PRN Reason: Pain, Moderate (Pain Scale 4-6 Last Admin: 05/10/21 05:45 Dose: 10 mg Documented by: KYRA Sodium Chloride (0.9 % Sodium Chloride Flush 3 Ml Syringe) 3 ml IVFLUSH QSHIFT [facility] [place] Last Admin: 05/10/21 07:58 Dose: 3 ml Documented by: CYNTHIA Labs CBC & Chem 7: 05/10/21 05:45 05/10/21 05:45 Labs: Laboratory Results - last 24 hr 05/06/21 05/06/21 05/09/21 05:34 05:34 11:33 MCV MCH MCHC RDW Plt Count MPV Immature Gran % (Auto) Neut % (Auto) Lymph % (Auto) [place] % (Auto) Eos % (Auto) Baso % (Auto) Lymph # (Auto) [place] # (Auto) Eos # (Auto) Baso # (Auto) Abs Immat Gran (auto) Absolute Neuts (auto) Absolute Nucleated RBC Nucleated RBC % (auto) PT INR Anion Gap Estim Creat Clear Calc Estimated GFR POC Glucose 156 H Fasting Glucose Calcium Total Bilirubin AST ALT Alkaline Phosphatase Total Protein Albumin [place] Titer TNP [place] Titer 2 TNP [place] Titer 3 TNP [place] Pattern TNP [place] Pattern 2 TNP [place] Pattern 3 TNP Soluble Liver Antigen <20.1 05/09/21 05/09/21 05/10/21 16:48 20:43 05:45 MCV MCH MCHC RDW Plt Count MPV Immature Gran % (Auto) Neut % (Auto) Lymph % (Auto) [place] % (Auto) Eos % (Auto) Baso % (Auto) Lymph # (Auto) [place] # (Auto) Eos # (Auto) Baso # (Auto) Abs Immat Gran (auto) Absolute Neuts (auto) Absolute Nucleated RBC Nucleated RBC % (auto) PT 37.4 H INR 3.2 H Anion Gap Estim Creat Clear Calc Estimated GFR POC Glucose 130 H 136 H Fasting Glucose Calcium Total Bilirubin AST ALT Alkaline Phosphatase Total Protein Albumin [place] Titer CAT[place]INA Titer 2 [place] Titer 3 [place]INA Pattern [place]INA Pattern 2 [place]INA Pattern 3 Soluble Liver Antigen 05/10/21 05/10/21 05/10/21 05:45 05:45 07:09 MCV 90.8 MCH 28.6 MCHC 31.5 RDW 18.7 H Plt Count 104 L D MPV 13.0 H Immature Gran % (Auto) 1.2 H Neut % (Auto) 79.5 H Lymph % (Auto) 8.8 L [place] % (Auto) 9.7 Eos % (Auto) 0.6 Baso % (Auto) 0.2 Lymph # (Auto) 0.8 L [place] # (Auto) 0.9 Eos # (Auto) 0.1 Baso # (Auto) 0.0 Abs Immat Gran (auto) 0.11 H Absolute Neuts (auto) 7.5 Absolute Nucleated RBC 0.000 Nucleated RBC % (auto) 0.0 PT INR Anion Gap 12 Estim Creat Clear Calc 78.2 Estimated GFR > 60 POC Glucose 147 H Fasting Glucose 161 H Calcium 8.1 L D Total Bilirubin 6.7 H AST 146 H ALT 69 H Alkaline Phosphatase 298 H Total Protein 5.7 L Albumin 2.3 L [place]INA Titer CATERINA Titer 2 [place]INA Titer 3 [place]INA Pattern CATERINA Pattern 2 [place]INA Pattern 3 Soluble Liver Antigen Procedures Date of Service Date of Service: 05/10/21 Progress Note: A&P Assessment and plan (1) Pressure ulcer of foot, stage 1: Status: Acute Plan Wound appears stable with no evidence of underlying abscess. Recommend keeping the wound covered with protective dressing. No other surgical intervention recommended at this time. Fall Risk Details Current Medications: Current Medications Acetaminophen (Acetaminophen 325 Mg Tablet) 650 mg PO Q8H PRN PRN Reason: Pain, Mild (Pain Scale 1-3) Last Admin: 05/08/21 02:39 Dose: 650 mg Documented by: Acyclovir (Acyclovir 200 Mg Capsule) 400 mg PO DAILY [facility] Last Admin: 05/10/21 07:59 Dose: 400 mg Documented by: Atorvastatin Calcium (Atorvastatin Calcium 10 Mg Tablet) 5 mg PO BEDTIME [facility] Last Admin: 05/09/21 21:08 Dose: 5 mg Documented by: Dextrose (Dextrose 50 % 25 Gm/50 Ml Vial) 25 gm IVPUSH Q15M PRN; Protocol PRN Reason: per Hypoglycemia Standing Ord. Docusate Sodium (Docusate Sodium 100 Mg Capsule) 100 mg PO DAILY PRN PRN Reason: Constipation Enoxaparin Sodium (Enoxaparin Sodium 40 Mg/0.4 Ml Syringe) 40 mg SUBCUT Q24H [facility] Last Admin: 05/10/21 03:04 Dose: 40 mg Documented by: Furosemide (Furosemide 20 Mg/2 Ml Vial) 20 mg IVPUSH DAILY [facility]; Protocol Last Admin: 05/10/21 07:59 Dose: 20 mg Documented by: Glucose (Glucose Gel 15 Gm Gel..Gram.) 15 gm PO Q15M PRN; Protocol PRN Reason: per Hypoglycemia Standing Ord. Piperacillin Sod/Tazobactam (Sod 3.375 gm/ Sodium Chloride) 50 mls @ 100 mls/hr IV Q6H [facility] [place] Last Infusion: 05/10/21 08:46 Dose: Infused Documented by: Phytonadione 10 mg/ Sodium (Chloride) 51 mls @ 51 mls/hr IV ONCE ONE Stop: 05/10/21 10:51 Insulin Human Lispro (Insulin Lispro 100 Unit/Ml 3 Ml Vial) 0 unit SUBCUT QIDACHS [facility] [place]; Protocol Last Admin: 05/10/21 07:19 Dose: Not Given Documented by: Levothyroxine Sodium (Levothyroxine Sodium 50 Mcg Tablet) 50 mcg PO DAILY@0600 [facility] [place] Last Admin: 05/10/21 05:45 Dose: 50 mcg Documented by: Methadone HCl (Methadone Hcl 20 Mg/2 Ml Oral.Conc) 70 mg PO DAILY [facility] [place] Last Admin: 05/10/21 07:59 Dose: 70 mg Documented by: Metoprolol Succinate (Metoprolol Succinate Er 50 Mg Tab.Er.24h) 50 mg PO DAILY [facility] [place]; Protocol Last Admin: 05/10/21 07:59 Dose: 50 mg Documented by: Morphine Sulfate (Morphine Sulfate 4 Mg/Ml Cartridge) 4 mg IVPUSH Q6H PRN; Protocol PRN Reason: Pain, Moderate (Pain Scale 4-6 Last Admin: 05/10/21 07:59 Dose: 4 mg Documented by: Omeprazole (Omeprazole 40 Mg Capsule.Dr) 40 mg PO DAILY [facility] [place] Last Admin: 05/10/21 07:59 Dose: 40 mg Documented by: Ondansetron HCl (Ondansetron Hcl 4 Mg/2 Ml Vial) 4 mg IVPUSH Q4H PRN PRN Reason: Nausea and Vomiting Last Admin: 05/06/21 18:00 Dose: 4 mg Documented by: Oxycodone HCl (Oxycodone Hcl Immed Release 5 Mg Tablet) 10 mg PO Q4H PRN PRN Reason: Pain, Moderate (Pain Scale 4-6 Last Admin: 05/10/21 05:45 Dose: 10 mg Documented by: Sodium Chloride (0.9 % Sodium Chloride Flush 3 Ml Syringe) 3 ml IVFLUSH QSHIFT [facility] Last Admin: 05/10/21 07:58 Dose: 3 ml Documented by: Time Spent With Patient Time: Total time spent is greater than 50% in coordination of care (as documented) at patient's floor/unit and/or counseling patient: Quality Stroke Does the patient have a stroke diagnosis?: No VTE Prior VTE?: No VTE Risk Level:: Medical - moderate - high VTE Device Contraindication: Treatment Not Indicated VTE Drug Contraindication: N/A - Med Ordered
[2021-05-10] MEDS: Phytonadione (Vit K1) 10 MG in 0.9 % Sodium Chloride 50 ML 51 MG IV (11:27)
[2021-05-10 11:40] LABS: Glucose, Whole Blood 133 mg/dL (60-115)
[2021-05-10 11:49] VITALS: BP 116/77; PULSE 83; RESP 20; O2SAT 98
--- NOTE | 2021-05-10 12:37 | PM.DS ---
DS: Providers Provider Date of Service: 05/10/21 Date of admission: 05/04/21 23:44 Date of discharge: 05/10/21 Primary care physician: David Ortiz MD Consults: 05/04/21 23:42 Consult to Gastroenterology Routine Consulting Provider: Edgard Choudhury Reason for consultation: portal htn? hx of liver cirrhosis, need for endoscopy? abn CT Has provider been notified: No 05/07/21 12:37 Consult to Infectious Diseases Routine Consulting Provider: Manisha Jones Reason for consultation: EColi bactermia Has provider been notified: No 05/09/21 09:21 Consult to General Surgery Routine Consulting Provider: Gino Montoya Reason for consultation: infected wound left heel Has provider been notified: Yes DS: Diagnosis Discharge Diagnosis (1) Pressure ulcer of foot, stage 1: Status: Acute DS: Summary Hospital Course Hospital Course: This is a 50-year-old female with past medical history of Crohn's disease, hypothyroidism, rheumatoid arthritis, 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 presents to the hospital with complaints of nausea vomiting, urinary symptoms for the past 2 weeks.? Patient reports that about 2 weeks ago she had urinary symptoms including frequency urgency and went to her primary care physician who prescribed her Macrobid.? She finished her course of Macrobid but continued to have symptoms.? She went back to PCPs office on Tuesday, she was cultured at that time but did not hear back from her doctor's office and decided to come to the ED due to her worsening symptoms.? Patient reports that since Tuesday she started vomiting constantly after every meal, she has also had about 15 episodes of diarrhea daily, she has per suprapubic pain that she describes as constant, as well as right upper quadrant pain that is 10/10, nonradiating, not associated with eating, patient reports that she also checked her temperature and she had a fever of 103.9.? She has also noted swelling in her legs bilaterally, she short of breath on exertion, denies having for cough.? No PND or orthopnea. Patient admitted with worsening decompensation of known sore Hospital Course Patient admitted with decompensation of cirrhosis thought to be related to Macrodantin. INR elevated to 7.9 on day 2 of admission necessitating need for IV vitamin K. subsequent urine culture and 2/2 blood cultures were positive for pansensitive E coli. She was seen in consultation by ID who recommended continuation of the Zosyn until stable and completed 14 day course of Augmentin as an outpatient. On the day of discharge patient received vitamin K daily and her INR is 3.2; she received additional dose of vitamin K 10 mg on the day discharge. Patient was cautioned that this may be early to leave hospital however she states that due to job requirement she has no choice. She understands the risks and is willing to accept them being bleeding and ultimately . She will be discharged on oral vitamin K and Augmentin. She can not I will arrange follow-up with Dr. Nelson (GI) for follow-up labs and further evaluation. Time Spent with Patient Time attestation: Total time spent providing and/or coordinating discharge services: Discharge coordination time: Greater than 30 minutes Quality: Stroke Does the patient have a stroke diagnosis?: No Physical Exam Vital Signs: Vital Signs: Last Vital Signs Temp 99.5 F 05/10/21 07:40 Pulse 83 05/10/21 11:49 Resp 20 05/10/21 11:49 BP 116/77 05/10/21 11:49 Pulse Ox 98 05/10/21 11:49 BMI result Body Mass Index 35.4 Const: Other: no acute distress Eyes: Other: anicteric Resp: Other: clear to auscultation bilaterally no rales rhonchi or wheezes Cardio: Other: no S4; positive S1-S2; no S3 murmurs rubs or gallops GI: Other: soft nontender nondistended normoactive bowel sounds Extrem: Other: no edema bilaterally. 2cm round blistered area lat aspect left heel DS: Data Data Completed and Pending Labs on day of discharge: Laboratory Results - last 24 hr 05/09/21 05/09/21 05/10/21 16:48 20:43 05:45 WBC RBC Hgb Hct MCV MCH MCHC RDW Plt Count MPV Immature Gran % (Auto) Neut % (Auto) Lymph % (Auto) [place] % (Auto) Eos % (Auto) Baso % (Auto) Lymph # (Auto) [place] # (Auto) Eos # (Auto) Baso # (Auto) Abs Immat Gran (auto) Absolute Neuts (auto) Absolute Nucleated RBC Nucleated RBC % (auto) PT 37.4 H INR 3.2 H Sodium Potassium Chloride Carbon Dioxide Anion Gap BUN Creatinine Estim Creat Clear Calc Estimated GFR POC Glucose 130 H 136 H Fasting Glucose Calcium Total Bilirubin AST ALT Alkaline Phosphatase Total Protein Albumin 05/10/21 05/10/21 05/10/21 05:45 05:45 07:09 WBC 9.4 RBC 2.73 L Hgb 7.8 L Hct 24.8 L MCV 90.8 MCH 28.6 MCHC 31.5 RDW 18.7 H Plt Count 104 L D MPV 13.0 H Immature Gran % (Auto) 1.2 H Neut % (Auto) 79.5 H Lymph % (Auto) 8.8 L [place] % (Auto) 9.7 Eos % (Auto) 0.6 Baso % (Auto) 0.2 Lymph # (Auto) 0.8 L [place] # (Auto) 0.9 Eos # (Auto) 0.1 Baso # (Auto) 0.0 Abs Immat Gran (auto) 0.11 H Absolute Neuts (auto) 7.5 Absolute Nucleated RBC 0.000 Nucleated RBC % (auto) 0.0 PT INR Sodium 137 Potassium 3.7 Chloride 101 Carbon Dioxide 28 Anion Gap 12 BUN 21 H Creatinine 0.92 Estim Creat Clear Calc 78.2 Estimated GFR > 60 POC Glucose 147 H Fasting Glucose 161 H Calcium 8.1 L D Total Bilirubin 6.7 H AST 146 H ALT 69 H Alkaline Phosphatase 298 H Total Protein 5.7 L Albumin 2.3 L 05/10/21 11:31 WBC RBC Hgb Hct MCV MCH MCHC RDW Plt Count MPV Immature Gran % (Auto) Neut % (Auto) Lymph % (Auto) [place] % (Auto) Eos % (Auto) Baso % (Auto) Lymph # (Auto) [place] # (Auto) Eos # (Auto) Baso # (Auto) Abs Immat Gran (auto) Absolute Neuts (auto) Absolute Nucleated RBC Nucleated RBC % (auto) PT INR Sodium Potassium Chloride Carbon Dioxide Anion Gap BUN Creatinine Estim Creat Clear Calc Estimated GFR POC Glucose 133 H Fasting Glucose Calcium Total Bilirubin AST ALT Alkaline Phosphatase Total Protein Albumin Discharge Plan Discharge Patient Disposition: Home, Self-Care Discharge Diagnosis: Ecoli bacteremia Referrals: David Ortiz MD [Primary Care Provider] - 1 Week Discharge Medications: New oxycodone 5 mg Tablet 10 mg PO Q4H PRN (Reason: Pain, Moderate (Pain Scale 4-6) Qty: 20 0RF amoxicillin-pot clavulanate 875-125 mg tablet 1 tab PO BID Qty: 28 0RF Continued acyclovir 400 mg tablet 400 mg PO DAILY Qty: 90 0RF omeprazole 40 mg capsule,delayed release(DR/EC) 40 mg PO DAILY Qty: 90 0RF metoprolol succinate 50 mg tablet extended release 24 hr 50 mg PO DAILY 90 Days Qty: 90 0RF furosemide [Lasix] 20 mg tablet 20 mg PO QAM 90 Days Qty: 90 0RF methadone 10 mg/mL Concentrate 71 mg PO DAILY 0RF Label Comments: CONFIRMED FROM [facility] levothyroxine 50 mcg tablet 50 mcg PO DAILY 90 Days Qty: 90 3RF metronidazole [Metrogel] 1 % gel 1 appl topical BEDTIME 30 Days Qty: 60 0RF tofacitinib 5 mg tablet 5 mg PO BID 0RF celecoxib 200 mg capsule 200 mg PO 0RF metformin 500 mg tablet 500 mg PO BID 90 Days Qty: 180 0RF Discontinued simvastatin 10 mg tablet 10 mg PO BEDTIME Qty: 90 0RF nitrofurantoin monohyd/m-cryst [Macrobid] 100 mg capsule 100 mg PO Q12H 7 Days Qty: 14 0RF Rx Instructions: must administer with a meal/food Discharge Orders: Discharge Order (Routine); Ordered 05/10/21 Ordered By: Luis Hinkle Diet: advance to usual diet Activity on Discharge: As tolerated Stand Alone Forms: Patient Portal Discharge page Care Plan Goals: Complete course of Augmentin twice a day for 14 days. Take vitamin K 10 mg daily for 1 week. Health Concerns: Follow-up with Dr. Nelson... Office will call Plan of Treatment: Follow-up PCP as scheduled Assessment: See discharge summary
--- NOTE | 2021-05-10 12:50 | MHC.CM.PN ---
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
[2021-05-10] MEDS: Fluconazole 150 MG TABLET PO (13:43)
[2021-05-11 13:36] LABS: Haptoglobin 186 mg/dL (43-212)
[2021-05-12 14:46] LABS: Smooth Muscle Antibody <20 U (<20)
[2021-05-12 22:47] LABS: HSV 1 IgM IFA Negative (Negative); HSV 2 IgM IFA Negative (Negative)
== END 2021-05-10 14:43 | disposition home or self-care (01) | DRG 872 ==
LOC: HO.ED 20:11 → HO.EDOVER 23:57 → HO.S3 05-05 06:19
PROVIDERS: Internal Medicine Gastroenterology; Admitting Provider Internal Medicine; Emergency Provider Emergency Medicine; PCP Internal Medicine; Visit Provider Hospitalist
DX: A41.51 Sepsis due to Escherichia coli [E. coli] (principal); N39.0 Urinary tract infection, site not specified; F11.20 Opioid dependence, uncomplicated; R18.8 Other ascites; K76.6 Portal hypertension; T80.89XA Other complications following infusion, transfusion and therapeutic injection, initial encounter; E03.9 Hypothyroidism, unspecified; K31.89 Other diseases of stomach and duodenum; E13.9 Other specified diabetes mellitus without complications; B96.20 Unspecified Escherichia coli [E. coli] as the cause of diseases classified elsewhere; T37.8X5A Adverse effect of other specified systemic anti-infectives and antiparasitics, initial encounter; M06.9 Rheumatoid arthritis, unspecified; L89.621 Pressure ulcer of left heel, stage 1; K74.60 Unspecified cirrhosis of liver; Z86.19 Personal history of other infectious and parasitic diseases; Z79.1 Long term (current) use of non-steroidal anti-inflammatories (NSAID); Z79.84 Long term (current) use of oral hypoglycemic drugs; Z79.890 Hormone replacement therapy; Z79.899 Other long term (current) drug therapy
CPT/HCPCS: 36415; 36573; 74176; 76705; 80048; 80053; 80076; 81001; 82248; 82784; 82947; 83010; 83520; 83605; 83615; 83690; 83735; 83880; 84443; 84484; 85007; 85025; 85027; 85045; 85610; 86015; 86038; 86039; 86078; 86664; 86665; 86695; 86696; 86704; 86706; 86709; 86803; 86850; 86880; 86900; 86901; 86923; 87040; 87077; 87086; 87088; 87186; 87205; 87324; 87340; 87493; 87635; 93005; 96361; 96374; 96375; 99285; C1751; J0132; J0696; J1650; J1885; J1940; J2270; J2405; J2543; J3430; P9016

== ENCOUNTER 2021-07-28 11:45 | Outpatient (REF) | payer OTHER, SELFPAY ==
[2021-07-28 13:36] LABS: MANUAL DIFF FLAG NO
[2021-07-28 13:42] LABS: Basophils Percent Auto 0.3 % (0-2); Eosinophils Absolute Auto 0.1 X10*3/uL (0.0-0.4); Eosinophils Percent Auto 1.4 % (0-4); Hematocrit 29.9 % (37.0-47.0); Hemoglobin 8.7 g/dl (12.0-16.0); Imm Gran Abs Auto 0.01 X10*3/uL (0.00-0.03); Imm Gran Pct Auto 0.3 % (0.0-0.4); Lymphocytes Absolute Auto 0.4 X10*3/uL (1.2-4.9); Lymphocytes Percent Auto 12.2 % (20-40); Mean Corpuscular HGB Conc 29.1 g/dl (31.0-35.0); Mean Corpuscular Hemoglobin 29.1 pg (27.0-33.0); Mean Platelet Volume 12.3 fL (9.4-12.3); Monocytes Absolute Auto 0.4 X10*3/uL (0.1-1.2); Monocytes Percent Auto 9.9 % (2-11); Neutrophils Absolute Auto 2.7 x10*3/uL (2.0-8.3); Neutrophils Percent Auto 75.9 % (45-73); Platelet Count 92 X10*3/uL (160-400); Red Blood Count 2.99 X10*6/uL (4.20-5.50); Red Cell Distribution Width 15.8 % (11.0-16.0); White Blood Count 3.5 X10*3/uL (4.8-10.8)
[2021-07-28 13:57] LABS: Alanine Aminotransferase 10 U/L (0-31); Albumin Level 2.7 g/dL (3.5-5.0); Alkaline Phosphatase 140 U/L (39-117); Anion Gap 10 (12-20); Aspartate Amino Transferase 37 U/L (5-31); Bilirubin Total 1.1 mg/dL (0.0-1.0); Blood Urea Nitrogen 20 mg/dL (9-16); Calcium 8.3 mg/dL (8.4-10.2); Carbon Dioxide 28 mmol/L (22-29); Chloride 103 mmol/L (96-108); Estimated Glomerular Filt Rate > 60; Glucose Random 142 mg/dL (60-115); Potassium 4.1 mmol/L (3.3-5.1); Sodium 137 mmol/L (135-145); Total Protein 7.5 g/dL (6.5-8.0)
[2021-07-28 14:05] LABS: Estimated Average Glucose 103 mg/dL; Hemoglobin A1c % 5.2 %
[2021-07-28 14:12] LABS: Ferritin 35 ng/mL (10-250); TSH reflex Free T4 2.25 uIU/mL (0.32-4.0)
[2021-07-28 14:26] LABS: Vitamin B12 1136 pg/mL (200-900)
== END 2021-07-28 11:46 | disposition home or self-care (01) ==
LOC: HO.HMGCLDS 11:45
PROVIDERS: PCP Internal Medicine; Visit Provider Internal Medicine
DX: E13.9 Other specified diabetes mellitus without complications (principal); E78.9 Disorder of lipoprotein metabolism, unspecified; I10 Essential (primary) hypertension; K50.90 Crohn's disease, unspecified, without complications; E03.9 Hypothyroidism, unspecified; D64.9 Anemia, unspecified
CPT/HCPCS: 36415; 80053; 82607; 82728; 83036; 84443; 85025

== ENCOUNTER → 2021-08-14 11:24 | Outpatient (BNV) | payer OTHER, SELFPAY | PROVIDERS: PCP Internal Medicine; Referring Provider Internal Medicine; Visit Provider Internal Medicine | DX: D61.818 Other pancytopenia (principal); D64.9 Anemia, unspecified | CPT/HCPCS: 99204; 99213; 99214; G2211 ==

== ENCOUNTER 2021-12-08 11:19 | Outpatient (REF) | payer OTHER, SELFPAY ==
[2021-12-08 14:14] LABS: Basophils Percent Auto 0.4 % (0-2); Eosinophils Percent Auto 1.3 % (0-4); Hemoglobin 9.4 g/dl (12.0-16.0); Imm Gran Abs Auto 0.01 X10*3/uL (0.00-0.03); Imm Gran Pct Auto 0.4 % (0.0-0.4); Lymphocytes Absolute Auto 0.4 X10*3/uL (1.2-4.9); Lymphocytes Percent Auto 16.8 % (20-40); MANUAL DIFF FLAG SCAN; Mean Corpuscular HGB Conc 30.3 g/dl (31.0-35.0); Mean Corpuscular Hemoglobin 27.8 pg (27.0-33.0); Mean Corpuscular Volume 91.7 fL (80.0-98.0); Mean Platelet Volume 11.7 fL (9.4-12.3); Monocytes Absolute Auto 0.2 X10*3/uL (0.1-1.2); Monocytes Percent Auto 10.2 % (2-11); Neutrophils Absolute Auto 1.6 x10*3/uL (2.0-8.3); Neutrophils Percent Auto 70.9 % (45-73); Red Blood Count 3.38 X10*6/uL (4.20-5.50); Red Cell Distribution Width 15.5 % (11.0-16.0); SCAN SMEAR FLAG 1
[2021-12-08 14:16] LABS: Platelet Count 71 X10*3/uL (160-400); White Blood Count 2.3 X10*3/uL (4.8-10.8)
[2021-12-08 14:29] LABS: Alanine Aminotransferase 21 U/L (0-31); Albumin Level 3.2 g/dL (3.5-5.0); Alkaline Phosphatase 149 U/L (39-117); Anion Gap 13 (12-20); Aspartate Amino Transferase 44 U/L (5-31); Blood Urea Nitrogen 16 mg/dL (9-16); Calcium 8.7 mg/dL (8.4-10.2); Carbon Dioxide 28 mmol/L (22-29); Chloride 103 mmol/L (96-108); Estimated Glomerular Filt Rate > 60; Glucose Random 144 mg/dL (60-115); Potassium 3.6 mmol/L (3.3-5.1); Sodium 140 mmol/L (135-145); Total Protein 7.4 g/dL (6.5-8.0)
[2021-12-08 14:36] LABS: TSH reflex Free T4 1.73 uIU/mL (0.32-4.0)
[2021-12-08 14:42] LABS: SLIDE REVIEW VERIFIED
[2021-12-09 14:27] LABS: LDL Cholesterol Direct 74 mg/dL (<100)
== END 2021-12-08 11:20 | disposition home or self-care (01) ==
LOC: HO.HMGCLDS 11:19
PROVIDERS: PCP Internal Medicine; Visit Provider Internal Medicine
DX: Z00.01 Encounter for general adult medical examination with abnormal findings (principal); D61.818 Other pancytopenia; D64.9 Anemia, unspecified; E03.9 Hypothyroidism, unspecified; E13.9 Other specified diabetes mellitus without complications; E66.09 Other obesity due to excess calories; E78.9 Disorder of lipoprotein metabolism, unspecified; I10 Essential (primary) hypertension; K74.60 Unspecified cirrhosis of liver; L03.90 Cellulitis, unspecified
CPT/HCPCS: 36415; 80053; 83721; 84443; 85025

== ENCOUNTER 2022-04-12 10:32 | Outpatient (REF) | payer OTHER, SELFPAY ==
[2022-04-12 14:13] LABS: Color Urine Dark Yellow; Glucose Urine UA Negative (Negative); Leukocyte Esterase Urine Negative (Negative); Nitrite Urine Negative (Negative); PH 5.5 (5.0-9.0); Specific Gravity - Urine >= 1.030 (1.005-1.025); UMIC TRIGGER UACC YES; Urine Blood Negative (Negative); Urine Ketones Negative (Negative); Urine Protein 30 (1+) mg/dL (Neg-Trace)
[2022-04-12 14:15] LABS: Appearance Urine Hazy
[2022-04-12 14:16] LABS: MANUAL DIFF FLAG NO
[2022-04-12 14:26] LABS: INTERNATIONAL NORM RATIO 2.2 (0.9-1.1); Prothrombin Time 26.4 SEC (10.0-13.1)
[2022-04-12 14:29] LABS: Basophils Percent Auto 0.3 % (0-2); Imm Gran Abs Auto 0.01 X10*3/uL (0.00-0.03); Imm Gran Pct Auto 0.3 % (0.0-0.4); Lymphocytes Absolute Auto 0.8 X10*3/uL (1.2-4.9); Lymphocytes Percent Auto 24.4 % (20-40); Mean Corpuscular HGB Conc 28.3 g/dl (31.0-35.0); Mean Corpuscular Hemoglobin 23.5 pg (27.0-33.0); Mean Platelet Volume 12.8 fL (9.4-12.3); Monocytes Absolute Auto 0.3 X10*3/uL (0.1-1.2); Monocytes Percent Auto 10.4 % (2-11); Neutrophils Percent Auto 63.6 % (45-73); Red Blood Count 2.89 X10*6/uL (4.20-5.50); Red Cell Distribution Width 16.8 % (11.0-16.0); White Blood Count 3.1 X10*3/uL (4.8-10.8)
[2022-04-12 14:40] LABS: Alanine Aminotransferase 22 U/L (0-31); Albumin Level 2.9 g/dL (3.5-5.0); Alkaline Phosphatase 124 U/L (39-117); Anion Gap 11 (12-20); Aspartate Amino Transferase 40 U/L (5-31); Bilirubin Total 0.9 mg/dL (0.0-1.0); Blood Urea Nitrogen 15 mg/dL (9-16); Calcium 8.8 mg/dL (8.4-10.2); Carbon Dioxide 26 mmol/L (22-29); Chloride 106 mmol/L (96-108); Estimated Glomerular Filt Rate > 60; Glucose Random 172 mg/dL (60-115); Potassium 4.3 mmol/L (3.3-5.1); Sodium 139 mmol/L (135-145); Total Protein 6.7 g/dL (6.5-8.0)
[2022-04-12 14:44] LABS: Hemoglobin 6.8 g/dl (12.0-16.0); Platelet Count 71 X10*3/uL (160-400)
[2022-04-12 15:01] LABS: Bacteria Urine None Seen (None Seen); Hyaline Casts Urine 0-2 /LPF (0-2); Squamous Epithelial Cell Urine 0-2 /HPF (0-2); WBC Urine 0-5 /HPF (0-5)
== END 2022-04-12 10:33 | disposition home or self-care (01) ==
LOC: HO.HMGCLDS 10:32
PROVIDERS: Internal Medicine; PCP Internal Medicine; Visit Provider Internal Medicine
DX: K74.60 Unspecified cirrhosis of liver (principal); A41.51 Sepsis due to Escherichia coli [E. coli]; D64.9 Anemia, unspecified
CPT/HCPCS: 36415; 80053; 81001; 85025; 85610

== ENCOUNTER 2022-04-13 15:47 | Emergency (ER) | payer OTHER, SELFPAY ==
[2022-04-13 16:11] VITALS: BP 148/71; PULSE 100; RESP 20; TEMP 37; O2SAT 97; BMI 30.9
--- NOTE | 2022-04-13 16:12 | ED_ITS ---
HPI - General Adult General Chief complaint: Recheck/Abnormal Lab/Rx <NORBERTO Morin - Last Filed: 04/13/22 16:19> Stated complaint: sent by dr for blood transfusion <NORBERTO Morin - Last Filed: 04/13/22 16:19> Time Seen by Provider: 04/13/22 18:32 <NORBERTO Morin - Last Filed: 04/13/22 16:19> Source: patient <NORBERTO Perdomo - Last Filed: 04/13/22 19:32> Mode of arrival: ambulatory <NORBERTO Perdomo - Last Filed: 04/13/22 19:32> Limitations: no limitations <NORBERTO Perdomo - Last Filed: 04/13/22 19:32> History of Present Illness HPI narrative: This is a 51-year-old female history of opiate use disorder, pancytopenia, diabetes, anemia, liver cirrhosis secondary to hepatitis C virus, RA, Crohn's disease, hypothyroidism presenting to the emergency department for evaluation of abnormal hemoglobin hematocrit, patient had outpatient labs done yesterday patient's hemoglobin noted to be 6.9, hematocrit 23.9. Reports lightheadedness and fatigue times 14 months. Reports she is falling asleep while driving at red lights because of her chronic fatigue. Patient denies any recent transfusions. Denies melena, hematochezia, hematemesis, chest pain, shortness of breath, nausea, vomiting, headache, vision changes, dizziness, weakness, recent trauma <NORBERTO Perdomo - Last Filed: 04/13/22 19:32> Related Data Home medications: Home Medications Medication Instructions Recorded Confirmed methadone 10 mg/mL oral concentrate 71 mg PO DAILY 05/04/21 12/21/21 Previous Rx's Medication Instructions Recorded metronidazole 1 % topical gel 1 appl topical BEDTIME 30 days #60 09/12/20 (Metrogel) grams levothyroxine 50 mcg tablet 50 mcg PO DAILY 90 days #90 tabs 07/28/21 furosemide 20 mg tablet (Lasix) 20 mg PO QAM 90 days #90 tabs 11/09/21 omeprazole 40 mg capsule,delayed 40 mg PO DAILY #90 caps 12/08/21 release metformin 500 mg tablet 500 mg PO BID 90 days #180 tabs 01/29/22 acyclovir 400 mg tablet 400 mg PO DAILY #90 tabs 03/01/22 metoprolol succinate 50 mg 50 mg PO DAILY 90 days #90 tabs 03/01/22 tablet,extended release 24 hr <NORBERTO Morin - Last Filed: 04/13/22 16:19> Allergies/adverse reactions: Allergies Allergy/AdvReac Type Severity Reaction Status Date / Time ciprofloxacin [Cipro] Allergy Unknown swelling Verified 12/08/21 10:57 of the throat , hives nitrofurantoin AdvReac Liver Verified 12/08/21 10:57 [From Macrobid] cirrhosis decompensation <NORBERTO Morin Last Filed: 04/13/22 16:19> Review of Systems 2 Review of Systems: Constitutional : No Weight loss, No Fever, No Chills, + Fatigue, + Malaise ENT/Mouth : No sore throat, No Rhinorrhea Eyes: No Eye Pain, No Swelling, No Redness Cardiovascular : No Chest Pain, No SOB, No Dyspnea on Exertion, No Orthopnea, No Edema, No Palpitations Respiratory : No Cough, No Sputum, No Wheezing Gastrointestinal : No Nausea, No Vomiting, No Diarrhea, No Constipation, No abdominal Pain, No Hematochezia, No Melena Genitourinary : No Dysuria, No Urinary Frequency, No Hematuria, Musculoskeletal : No joint pain, No Myalgias, No Joint Swelling Skin : No Skin Lesions, No rash Neuro : No Weakness, No Numbness, + Dizziness, No Headache Psych : No Anxiety/Panic, No Depression All other systems reviewed and are negative <NORBERTO Perdomo Last Filed: 04/13/22 19:32> Yes all other systems are reviewed and are negative <NORBERTO Perdomo Last Filed: 04/13/22 19:32> [facility] Past Medical History Attestation statement: The following information was validated with the patient. 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 Other Mental health disorder Substance use disorder <NORBERTO Morin - Last Filed: 04/13/22 16:19> Social History Social History: Social History Household Members: None Housing: Apartment Are you a primary child care provider to a significant other at home: No Do you presently have visiting nurse or other home services: No Patient Tobacco Use Status: Current someday Tobacco user Tobacco use type: Cigarette Years Smoked: 17 years old e-Cigarette/Vaping Use: Never Used Advance Directives: No Advance Directives Information Provided: No service: No Current occupational status: employed Cognitive needs: No Hearing needs: No Vision needs: No <NORBERTO Morin - Last Filed: 04/13/22 16:19> Physical Exam ED Vital Signs: Vital Signs - 24 hr 04/13/22 16:11 04/13/22 18:53 Temperature 98.6 F Pulse Rate 100 85 Respiratory Rate 20 Blood Pressure 148/71 H Pulse Oximetry 97 Oxygen Delivery Method Room Air BMI result Body Mass Index 30.9 <NORBERTO Morin - Last Filed: 04/13/22 16:19> Vital Signs - 24 hr 04/13/22 16:11 04/13/22 18:53 Temperature 98.6 F Pulse Rate 100 85 Respiratory Rate 20 Blood Pressure 148/71 H Pulse Oximetry 97 Oxygen Delivery Method Room Air BMI result Body Mass Index 30.9 Vital signs stable <NORBERTO Perdomo - Last Filed: 04/13/22 19:32> Appearance: Alert.? Oriented X3.? No acute distress.? Head: Normocephalic, atraumatic, no step-offs or deformities Eyes: Pupils equal, round and reactive to light.? CVS: Normal heart rate and rhythm.? Pulses normal.? Respiratory: No respiratory distress.? Breath sounds normal.? Abdomen: Soft and nontender.? Skin: Skin warm and dry.? Normal skin color.? Normal skin turgor.? Extremities: No lower extremity edema.? No calf ttp. 5/5 strength to bilateral upper and lower extremities Back: No midline tenderness, no C-spine tenderness, full range of motion, no CVA tenderness bilaterally Rectal exam: refused Neuro: Oriented X 3.? No motor deficit.? No sensory deficit. CN 2-12 intact <NORBERTO Perdomo - Last Filed: 04/13/22 19:32> Course Course Course Narrative: RME--51-year-old female with past medical history of Crohn's disease, hypothyroidism, rheumatoid arthritis, diabetes type 1.5, history of liver cirrhosis secondary to hepatitis C, sent in to ED by PCP for low H&H, hemoglobin 6.8 yesterday. Patient reports generalized fatigue and dizziness. Denies recent transfusion. Denies melena/hematochezia, hematemesis H&H 6.8/24 yesterday EKG, labs type and screen, 1 unit RBCs ordered <NORBERTO Morin - Last Filed: 04/13/22 16:19> Reevaluation(s) Reevaluation #1: CBC w/ leukopenia around patients baseline, normocytic hypochromic anemia. Platelet count of 51, patient's baseline is around 71, she does have a history of thrombocytopenia. Chemistry with no acute findings requiring intervention. Alk-phos chronically elevated. UA without infection. Coags within normal mariscal its. COVID negative. Patient adamantly refusing rectal exam. She tells me she has had multiple colonoscopies, and she does not feel the need for this exam. Nurse at the bedside as witness. Patient did give the consent for blood products however patient does have an anaphylactic reaction per patient to blood products, last time she had a transfusion she reports that she had anaphylaxis with airway compromise. Will reach out to hematology oncology for guidance due to patient's severe allergy. <NORBERTO Perdomo Last Filed: 04/13/22 19:32> Time: 19:00 <NORBERTO Perdomo - Last Filed: 04/13/22 19:32> Reevaluation #2: Spoke to Dr. Arora Hem/Onc recommends if severe allergy or if refusing PRBCs due to reported allergy patient should be admitted and can get IV venofer as an option. If patient does agree to PRBCs then she can be premedicated with Benadryl 25 mg IV and 650 tylenol. Recommends adding LDH, haptoglobin, iron stududies. Spoke to blood bank April 2021 patient had an increase in temp with transfusion of one unit. Will speak to patient at this time about options. <NORBERTO Perdomo Last Filed: 04/13/22 19:32> Time: 19:19 <NORBERTO Perdomo - Last Filed: 04/13/22 19:32> Reevaluation #3: Patient tells me she would feel more comfortable with an iron transfusion. Spoke to the hospitalist. At this time patient will be admitted to the hospital for symptomatic anemia, refusing rectal exam still. Will put in a consult Hematology-Oncology. <NORBERTO Perdomo Last Filed: 04/13/22 19:32> Medical Decision Making Medical Decision Making [facility] Narrative: 1836 51-year-old female presents for evaluation of abnormal labs done by PCP noted to be anemic. Denies any bleeding at this time. Physical exam benign Likely lower GI bleed, unlikely upper GI bleed. Will rule out other electrolyte abnormalities. Plan at this time OBS, basic labs, type and screen. Will transfuse patient as she is symptomatic. Patient gave me verbal consent and written consent is in the chart. <NORBERTO Perdomo Last Filed: 04/13/22 19:32> Differential Diagnosis Differential Diagnoses: The differential diagnosis associated with the presentation includes <NORBERTO Perdomo Last Filed: 04/13/22 19:32> Likely lower GI bleed, unlikely upper GI bleed. Will rule out other electrolyte abnormalities. <NORBERTO Perdomo - Last Filed: 04/13/22 19:32> Admission/Observation Consideration of admission/observation: Escalation of care including admission/observation considered <NORBERTO Perdomo - Last Filed: 04/13/22 19:32> Consult Healthcare Provider Management of the patient was discussed with: Hospitalist and Yard Goods Salesperson (hemonc) <NORBERTO Perdomo - Last Filed: 04/13/22 19:32> Lab Data MDM Lab Attestation statement: I reviewed the patient's lab results. <NORBERTO Perdomo - Last Filed: 04/13/22 19:32> Result Diagrams: 04/13/22 16:53 04/13/22 16:53 <NORBERTO Morin - Last Filed: 04/13/22 16:19> Labs: Lab Results 04/13/22 04/13/22 04/13/22 Range/Units 16:35 16:49 16:53 WBC 2.4 L (4.8-10.8) X10*3/uL RBC 2.89 L (4.20-5.50) X10*6/uL Hgb 6.9 L* (12.0-16.0) g/dl Hct 23.9 L (37.0-47.0) % MCV 82.7 (80.0-98.0) fL MCH 23.9 L (27.0-33.0) pg MCHC 28.9 L (31.0-35.0) g/dl RDW 16.8 H (11.0-16.0) % Plt Count 59 L (160-400) X10*3/uL MPV 11.4 (9.4-12.3) fL Immature Gran % (Auto) 0.0 (0.0-0.4) % Neut % (Auto) 67.3 (45-73) % Lymph % (Auto) 22.4 (20-40) % [place] % (Auto) 9.1 (2-11) % Eos % (Auto) 0.8 (0-4) % Baso % (Auto) 0.4 (0-2) % Lymph # (Auto) 0.5 L (1.2-4.9) X10*3/uL [place] # (Auto) 0.2 (0.1-1.2) X10*3/uL Eos # (Auto) 0.0 (0.0-0.4) X10*3/uL Baso # (Auto) 0.0 (0.0-0.2) X10*3/uL Abs Immat Gran (auto) 0.00 (0.00-0.03) X10*3/uL Absolute Neuts (auto) 1.6 L (2.0-8.3) x10*3/uL Absolute Nucleated RBC 0.000 (0.0-0.012) X10*3/uL Nucleated RBC % (auto) 0.0 (0.0-0.2) /100WBC Smear Tech's Comments VERIFIED PT (10.0-13.1) SEC INR (0.9-1.1) Sodium (135-145) mmol/L Potassium (3.3-5.1) mmol/L Chloride (96-108) mmol/L Carbon Dioxide (22-29) mmol/L Anion Gap (12-20) BUN (9-16) mg/dL Creatinine (0.5-1.4) mg/dL Estim Creat Clear Calc Estimated GFR Random Glucose (60-115) mg/dL Calcium (8.4-10.2) mg/dL Magnesium (1.6-2.6) mg/dL Total Bilirubin (0.0-1.0) mg/dL Direct Bilirubin (0.0-0.5) mg/dL AST (5-31) U/L ALT (0-31) U/L Alkaline Phosphatase (39-117) U/L Total Protein (6.5-8.0) g/dL Albumin (3.5-5.0) g/dL Urine Color Dark Yellow Urine Appearance Clear Urine pH 6.0 (5.0-9.0) Ur Specific [place] 1.025 (1.005-1.025) Urine Protein 30 (1+) H (Neg-Trace) mg/dL Urine Glucose (UA) 100 H (Negative) mg/dL Urine Ketones Trace (Negative) mg/dL Urine Blood Negative (Negative) Urine Nitrite Negative (Negative) Ur Leukocyte Esterase Trace H (Negative) Urine RBC 3-5 H (0-2) /HPF Urine WBC 0-5 (0-5) /HPF Ur Squamous Epith Cells 3-5 (0-2) /HPF Urine Bacteria None Seen (None Seen) Hyaline Casts 0-2 (0-2) /LPF COVID-19 ([facility]ILOMENA) Negative (Negative) COVID-19 Clin Com See Note Blood Type Antibody Screen Crossmatch 04/13/22 04/13/22 04/13/22 Range/Units 16:53 16:53 17:41 WBC (4.8-10.8) X10*3/uL RBC (4.20-5.50) X10*6/uL Hgb (12.0-16.0) g/dl Hct (37.0-47.0) % MCV (80.0-98.0) fL MCH (27.0-33.0) pg MCHC (31.0-35.0) g/dl RDW (11.0-16.0) % Plt Count (160-400) X10*3/uL MPV (9.4-12.3) fL Immature Gran % (Auto) (0.0-0.4) % Neut % (Auto) (45-73) % Lymph % (Auto) (20-40) % [place] % (Auto) (2-11) % Eos % (Auto) (0-4) % Baso % (Auto) (0-2) % Lymph # (Auto) (1.2-4.9) X10*3/uL [place] # (Auto) (0.1-1.2) X10*3/uL Eos # (Auto) (0.0-0.4) X10*3/uL Baso # (Auto) (0.0-0.2) X10*3/uL Abs Immat Gran (auto) (0.00-0.03) X10*3/uL Absolute Neuts (auto) (2.0-8.3) x10*3/uL Absolute Nucleated RBC (0.0-0.012) X10*3/uL Nucleated RBC % (auto) (0.0-0.2) /100WBC Smear Tech's Comments PT 28.5 H (10.0-13.1) SEC INR 2.4 H (0.9-1.1) Sodium 138 (135-145) mmol/L Potassium 4.1 (3.3-5.1) mmol/L Chloride 104 (96-108) mmol/L Carbon Dioxide 27 (22-29) mmol/L Anion Gap 11 L (12-20) BUN 13 (9-16) mg/dL Creatinine 0.76 (0.5-1.4) mg/dL Estim Creat Clear Calc 90.4 Estimated GFR > 60 Random Glucose 310 H (60-115) mg/dL Calcium 8.5 (8.4-10.2) mg/dL Magnesium 1.6 (1.6-2.6) mg/dL Total Bilirubin 1.0 (0.0-1.0) mg/dL Direct Bilirubin 0.4 (0.0-0.5) mg/dL AST 29 (5-31) U/L ALT 20 (0-31) U/L Alkaline Phosphatase 118 H (39-117) U/L Total Protein 6.4 L (6.5-8.0) g/dL Albumin 2.7 L (3.5-5.0) g/dL Urine Color Urine Appearance Urine pH (5.0-9.0) Ur Specific [place] (1.005-1.025) Urine Protein (Neg-Trace) mg/dL Urine Glucose (UA) (Negative) mg/dL Urine Ketones (Negative) mg/dL Urine Blood (Negative) Urine Nitrite (Negative) Ur Leukocyte Esterase (Negative) Urine RBC (0-2) /HPF Urine WBC (0-5) /HPF Ur Squamous Epith Cells (0-2) /HPF Urine Bacteria (None Seen) Hyaline Casts (0-2) /LPF COVID-19 ([facility]OMENA) (Negative) COVID-19 Clin Com Blood Type A Positive Antibody Screen NEGATIVE Crossmatch See Detail <NORBERTO Morin - Last Filed: 04/13/22 16:19> Lab Results 04/13/22 04/13/22 04/13/22 Range/Units 16:35 16:49 16:53 WBC 2.4 L (4.8-10.8) X10*3/uL RBC 2.89 L (4.20-5.50) X10*6/uL Hgb 6.9 L* (12.0-16.0) g/dl Hct 23.9 L (37.0-47.0) % MCV 82.7 (80.0-98.0) fL MCH 23.9 L (27.0-33.0) pg MCHC 28.9 L (31.0-35.0) g/dl RDW 16.8 H (11.0-16.0) % Plt Count 59 L (160-400) X10*3/uL MPV 11.4 (9.4-12.3) fL Immature Gran % (Auto) 0.0 (0.0-0.4) % Neut % (Auto) 67.3 (45-73) % Lymph % (Auto) 22.4 (20-40) % [place] % (Auto) 9.1 (2-11) % Eos % (Auto) 0.8 (0-4) % Baso % (Auto) 0.4 (0-2) % Lymph # (Auto) 0.5 L (1.2-4.9) X10*3/uL [place] # (Auto) 0.2 (0.1-1.2) X10*3/uL Eos # (Auto) 0.0 (0.0-0.4) X10*3/uL Baso # (Auto) 0.0 (0.0-0.2) X10*3/uL Abs Immat Gran (auto) 0.00 (0.00-0.03) X10*3/uL Absolute Neuts (auto) 1.6 L (2.0-8.3) x10*3/uL Absolute Nucleated RBC 0.000 (0.0-0.012) X10*3/uL Nucleated RBC % (auto) 0.0 (0.0-0.2) /100WBC Smear Tech's Comments VERIFIED PT (10.0-13.1) SEC INR (0.9-1.1) Sodium (135-145) mmol/L Potassium (3.3-5.1) mmol/L Chloride (96-108) mmol/L Carbon Dioxide (22-29) mmol/L Anion Gap (12-20) BUN (9-16) mg/dL Creatinine (0.5-1.4) mg/dL Estim Creat Clear Calc Estimated GFR Random Glucose (60-115) mg/dL Calcium (8.4-10.2) mg/dL Magnesium (1.6-2.6) mg/dL Total Bilirubin (0.0-1.0) mg/dL Direct Bilirubin (0.0-0.5) mg/dL AST (5-31) U/L ALT (0-31) U/L Alkaline Phosphatase (39-117) U/L Total Protein (6.5-8.0) g/dL Albumin (3.5-5.0) g/dL Urine Color Dark Yellow Urine Appearance Clear Urine pH 6.0 (5.0-9.0) Ur Specific [place] 1.025 (1.005-1.025) Urine Protein 30 (1+) H (Neg-Trace) mg/dL Urine Glucose (UA) 100 H (Negative) mg/dL Urine Ketones Trace (Negative) mg/dL Urine Blood Negative (Negative) Urine Nitrite Negative (Negative) Ur Leukocyte Esterase Trace H (Negative) Urine RBC 3-5 H (0-2) /HPF Urine WBC 0-5 (0-5) /HPF Ur Squamous Epith Cells 3-5 (0-2) /HPF Urine Bacteria None Seen (None Seen) Hyaline Casts 0-2 (0-2) /LPF COVID-19 ([facility]NA) Negative (Negative) COVID-19 Clin Com See Note Blood Type Antibody Screen Crossmatch 04/13/22 04/13/22 04/13/22 Range/Units 16:53 16:53 17:41 WBC (4.8-10.8) X10*3/uL RBC (4.20-5.50) X10*6/uL Hgb (12.0-16.0) g/dl Hct (37.0-47.0) % MCV (80.0-98.0) fL MCH (27.0-33.0) pg MCHC (31.0-35.0) g/dl RDW (11.0-16.0) % Plt Count (160-400) X10*3/uL MPV (9.4-12.3) fL Immature Gran % (Auto) (0.0-0.4) % Neut % (Auto) (45-73) % Lymph % (Auto) (20-40) % [place] % (Auto) (2-11) % Eos % (Auto) (0-4) % Baso % (Auto) (0-2) % Lymph # (Auto) (1.2-4.9) X10*3/uL [place] # (Auto) (0.1-1.2) X10*3/uL Eos # (Auto) (0.0-0.4) X10*3/uL Baso # (Auto) (0.0-0.2) X10*3/uL Abs Immat Gran (auto) (0.00-0.03) X10*3/uL Absolute Neuts (auto) (2.0-8.3) x10*3/uL Absolute Nucleated RBC (0.0-0.012) X10*3/uL Nucleated RBC % (auto) (0.0-0.2) /100WBC Smear Tech's Comments PT 28.5 H (10.0-13.1) SEC INR 2.4 H (0.9-1.1) Sodium 138 (135-145) mmol/L Potassium 4.1 (3.3-5.1) mmol/L Chloride 104 (96-108) mmol/L Carbon Dioxide 27 (22-29) mmol/L Anion Gap 11 L (12-20) BUN 13 (9-16) mg/dL Creatinine 0.76 (0.5-1.4) mg/dL Estim Creat Clear Calc 90.4 Estimated GFR > 60 Random Glucose 310 H (60-115) mg/dL Calcium 8.5 (8.4-10.2) mg/dL Magnesium 1.6 (1.6-2.6) mg/dL Total Bilirubin 1.0 (0.0-1.0) mg/dL Direct Bilirubin 0.4 (0.0-0.5) mg/dL AST 29 (5-31) U/L ALT 20 (0-31) U/L Alkaline Phosphatase 118 H (39-117) U/L Total Protein 6.4 L (6.5-8.0) g/dL Albumin 2.7 L (3.5-5.0) g/dL Urine Color Urine Appearance Urine pH (5.0-9.0) Ur Specific [place] (1.005-1.025) Urine Protein (Neg-Trace) mg/dL Urine Glucose (UA) (Negative) mg/dL Urine Ketones (Negative) mg/dL Urine Blood (Negative) Urine Nitrite (Negative) Ur Leukocyte Esterase (Negative) Urine RBC (0-2) /HPF Urine WBC (0-5) /HPF Ur Squamous Epith Cells (0-2) /HPF Urine Bacteria (None Seen) Hyaline Casts (0-2) /LPF COVID-19 ([facility]) (Negative) COVID-19 Clin Com Blood Type A Positive Antibody Screen NEGATIVE Crossmatch See Detail <NORBERTO Perdomo - Last Filed: 04/13/22 19:32> Radiology Impression Discussion of test interpretation with radiology: I have reviewed the radiologist's reading. <NORBERTO Perdomo - Last Filed: 04/13/22 19:32> Core Measures AMI core measures followed: Yes <NORBERTO Perdomo - Last Filed: 04/13/22 19:32> Measure exclusions: not indicated <NORBERTO Perdomo - Last Filed: 04/13/22 19:32> Critical Care Time Critical Care Time Critical Care Time: Yes <NORBERTO Perdomo - Last Filed: 04/13/22 19:32> Total Critical Care Time: 35 <NORBERTO Perdomo - Last Filed: 04/13/22 19:32> Attestation: I attest to this time spent taking care of the patient, obtaining history, physical, reviewing labs, imaging, speaking to my attending, speaking to specialist. <NORBERTO Perdomo - Last Filed: 04/13/22 19:32> Discharge Plan Discharge Clinical Impression: Normocytic anemia, Light-headed, Fatigue <NORBERTO Morin - Last Filed: 04/13/22 16:19> Patient Disposition: Admitted As Inpatient <NORBERTO Morin - Last Filed: 04/13/22 16:19> Instructions: Anemia (ED) <NORBERTO Morin - Last Filed: 04/13/22 16:19> Prescriptions: No Action furosemide [Lasix] 20 mg tablet 20 mg PO QAM 90 Days Qty: 90 0RF metformin 500 mg tablet 500 mg PO BID 90 Days Qty: 180 0RF metoprolol succinate 50 mg tablet extended release 24 hr 50 mg PO DAILY 90 Days Qty: 90 0RF acyclovir 400 mg tablet 400 mg PO DAILY Qty: 90 0RF methadone 10 mg/mL Concentrate 71 mg PO DAILY Label Comments: CONFIRMED FROM VENANCIO DAVID metronidazole [Metrogel] 1 % gel 1 appl topical BEDTIME 30 Days Qty: 60 0RF levothyroxine 50 mcg tablet 50 mcg PO DAILY 90 Days Qty: 90 3RF omeprazole 40 mg capsule,delayed release(DR/EC) 40 mg PO DAILY Qty: 90 0RF <NORBERTO Morin - Last Filed: 04/13/22 16:19>
--- NOTE | 2022-04-13 16:16 | ECG_ITS ---
Test Reason : anemia Blood Pressure : / mmHG Vent. Rate : 089 BPM Atrial Rate : 089 BPM P-R Int : 146 ms QRS Dur : 114 ms QT Int : 430 ms P-R-T Axes : 057 -08 -11 degrees QTc Int : 523 ms Normal sinus rhythm Cannot rule out Anterior infarct (cited on or before 04-MAY-2021) Abnormal ECG When compared with ECG of 04-MAY-2021 11:28, Nonspecific T wave abnormality, worse in Anterior leads Referred By: Anna Arguelles Electronically Signed By:ERIK KANG MD
[2022-04-13 17:02] LABS: Appearance Urine Clear; Color Urine Dark Yellow; Glucose Urine UA 100 mg/dL (Negative); Leukocyte Esterase Urine Trace (Negative); Nitrite Urine Negative (Negative); Specific Gravity - Urine 1.025 (1.005-1.025); UMIC TRIGGER UACC YES; Urine Blood Negative (Negative); Urine Ketones Trace mg/dL (Negative); Urine Protein 30 (1+) mg/dL (Neg-Trace)
[2022-04-13 17:06] LABS: Basophils Percent Auto 0.4 % (0-2); Eosinophils Percent Auto 0.8 % (0-4); Hematocrit 23.9 % (37.0-47.0); Lymphocytes Absolute Auto 0.5 X10*3/uL (1.2-4.9); Lymphocytes Percent Auto 22.4 % (20-40); MANUAL DIFF FLAG SCAN; Mean Corpuscular HGB Conc 28.9 g/dl (31.0-35.0); Mean Corpuscular Hemoglobin 23.9 pg (27.0-33.0); Mean Corpuscular Volume 82.7 fL (80.0-98.0); Mean Platelet Volume 11.4 fL (9.4-12.3); Monocytes Absolute Auto 0.2 X10*3/uL (0.1-1.2); Monocytes Percent Auto 9.1 % (2-11); Neutrophils Absolute Auto 1.6 x10*3/uL (2.0-8.3); Neutrophils Percent Auto 67.3 % (45-73); Red Blood Count 2.89 X10*6/uL (4.20-5.50); Red Cell Distribution Width 16.8 % (11.0-16.0); SCAN SMEAR FLAG 1
[2022-04-13 17:07] LABS: Platelet Count 59 X10*3/uL (160-400); White Blood Count 2.4 X10*3/uL (4.8-10.8)
[2022-04-13 17:08] LABS: INTERNATIONAL NORM RATIO 2.4 (0.9-1.1); Prothrombin Time 28.5 SEC (10.0-13.1)
[2022-04-13 17:13] LABS: Hemoglobin 6.9 g/dl (12.0-16.0)
[2022-04-13 17:17] LABS: Alanine Aminotransferase 20 U/L (0-31); Albumin Level 2.7 g/dL (3.5-5.0); Alkaline Phosphatase 118 U/L (39-117); Anion Gap 11 (12-20); Aspartate Amino Transferase 29 U/L (5-31); Bilirubin Direct 0.4 mg/dL (0.0-0.5); Blood Urea Nitrogen 13 mg/dL (9-16); Calcium 8.5 mg/dL (8.4-10.2); Carbon Dioxide 27 mmol/L (22-29); Chloride 104 mmol/L (96-108); Creatinine Clr Calc Pharmacy 90.4; Estimated Glomerular Filt Rate > 60; Glucose Random 310 mg/dL (60-115); Magnesium 1.6 mg/dL (1.6-2.6); Potassium 4.1 mmol/L (3.3-5.1); Sodium 138 mmol/L (135-145); Total Protein 6.4 g/dL (6.5-8.0)
[2022-04-13 17:20] LABS: COVID-19 Test Negative (Negative); IDNOW Serial# 9DB6401D
[2022-04-13 17:27] LABS: SLIDE REVIEW VERIFIED
[2022-04-13 17:38] LABS: Bacteria Urine None Seen (None Seen); Hyaline Casts Urine 0-2 /LPF (0-2); WBC Urine 0-5 /HPF (0-5)
[2022-04-13 18:53] VITALS: PULSE 85
--- NOTE | 2022-04-13 18:56 | PC.NURSE ---
Alert and oriented, resp even and unlabored. NSR on monitor. IV established.
--- NOTE | 2022-04-13 18:59 | PC.NURSE ---
Provider at bedside to perform rectal exam, pt refused.
[2022-04-13 19:38] LABS: Immature Retic Fraction 27.9 % (3.0-15.9); Retic HGB Equivalent 22.1 pg (30.0-35.0); Reticulocyte Percent 1.8 % (0.5-1.8); Reticulocytes Absolute 0.052 X10*6/uL (0.026-0.095)
[2022-04-13 20:00] LABS: Iron 26 mcg/dL (30-160); Lactate Dehydrogenase 187 U/L (122-220); Percent Iron Saturation 8 % (15-50); Total Iron Binding Capacity 341 mcg/dL (228-428); Unsaturated Iron Binding 315 ug/dL
--- NOTE | 2022-04-13 20:23 | PHA.MEDREC ---
Pharmacy Consult ? Medication Reconciliation Pharmacy has completed the medication reconciliation.
[2022-04-13 21:30] LABS: Glucose, Whole Blood 97 mg/dL (60-115)
[2022-04-13] MEDS: diphenhydrAMINE HCL 50 MG/ML VIAL 25 MG IVPUSH (21:32)
[2022-04-13] MEDS: Acetaminophen 325 MG TABLET 650 MG PO (21:32)
[2022-04-13 22:02] VITALS: BP 160/87; PULSE 85; RESP 14; TEMP 36.5
[2022-04-13 22:20] VITALS: BP 148/85; PULSE 88; RESP 15; TEMP 36.9
[2022-04-14 00:06] VITALS: BP 127/71; PULSE 76; RESP 17; TEMP 36.7; O2SAT 95
--- NOTE | 2022-04-14 00:10 | PC.NURSE ---
I took over care of the pt at 2300. Pt is resting comfortably in bed, A&Ox4, GCS 15. Blood is running into her IV. A pressure bag was put on the blood because it was flowing slowly due to a positional IV. Blood is dripping well with the pressure bag on.
[2022-04-14 01:30] VITALS: BP 140/82; PULSE 79; RESP 10
== END 2022-04-14 02:34 | disposition home or self-care (01) ==
PROVIDERS: Physician Assistant; Emergency Provider Emergency Medicine; PCP Internal Medicine
DX: D64.9 Anemia, unspecified (principal); R42 Dizziness and giddiness; R53.1 Weakness; Z79.899 Other long term (current) drug therapy; Z20.822 Contact with and (suspected) exposure to COVID-19; Z20.828 Contact with and (suspected) exposure to other viral communicable diseases
CPT/HCPCS: 36415; 36430; 80048; 80076; 81001; 81003; 82947; 83540; 83615; 83735; 85025; 85045; 85610; 86850; 86880; 86900; 86901; 86923; 87635; 93005; 96374; 99285; J1200; P9016

== ENCOUNTER 2022-05-06 08:38 | Outpatient (REF) | payer OTHER, SELFPAY | END 2022-05-06 08:39 | disposition home or self-care (01) | LOC: HO.MDS 08:38 | PROVIDERS: PCP Internal Medicine; Visit Provider Internal Medicine | DX: Z53.09 Procedure and treatment not carried out because of other contraindication (principal); D50.9 Iron deficiency anemia, unspecified | CPT/HCPCS: J1100; J1756 ==

== ENCOUNTER 2022-05-13 | Outpatient (REF) | payer OTHER, SELFPAY | END 2022-05-13 00:01 | disposition home or self-care (01) | LOC: CF | PROVIDERS: Visit Provider Internal Medicine | DX: D50.9 Iron deficiency anemia, unspecified (principal); R18.8 Other ascites; K50.90 Crohn's disease, unspecified, without complications | CPT/HCPCS: 99202 ==

== ENCOUNTER → 2022-05-13 10:40 | Day surgery (SDC) | payer OTHER, SELFPAY ==
--- NOTE | 2022-05-13 14:23 | HO.MIDLINE ---
Midline Insertion MIDLINE INSERTION Diagnosis: [ANEMIA] Indication: [NEEDS IRON INFUSION/THERAPY] Pertinent Labs: [REVIEWED] Technique: Using sterile technique including cap and mask, glove and drape, the [RIGHT] arm was prepped and draped in the usual sterile fashion of full barrier technique with CHG. Using ultrasound guidance, [RIGHT BRACHIAL] vein access was obtained ON THE FIRST ATTEMPT BUT COULD GET ANY BLOOD RETURN. LEFT ARM was prepped and draped in the usual sterile fashion of full barrier technique with CHG. LEFT BASILIC VEIN WAS ACCESSED ON FIRST ATTEMPT. [18LS2NT ST NON-PASV] was positioned. The procedure was performed in [RM 272]. Ultrasound was used to document vein patency and for needle entry. A formal ultrasound picture was recorded. Vascular Special Duty Nurse has released the line for use and it is currently dressed with a StatLock, Tegaderm, and CHG disc. Verification has been performed for blood return and line patency. CALLED DR CAMARENA'S OFFICE AND WAS INSTRUCTED THAT [facility] WERE GOING TO START THE PATIENT'S INFUSION TODAY AND THEY WERE SENT THE FLUSHING ORDERS. Arm Circumference: [26CM] Equipment: [BARD POWERGLIDE MIDLINE] Catheter Type: [[id number] ST NON-PASV] Lot #: [[id number]]
== END ==
PROVIDERS: Radiology Diagnostic Radiology; PCP Internal Medicine; Visit Provider Internal Medicine
DX: D64.9 Anemia, unspecified (principal)
CPT/HCPCS: 36410; C1751

== ENCOUNTER 2022-05-13 14:12 | Outpatient (REF) | payer OTHER, SELFPAY | END 2022-05-13 14:13 | disposition home or self-care (01) | LOC: HO.MDS 14:12 | PROVIDERS: PCP Internal Medicine; Visit Provider Internal Medicine | DX: Z53.29 Procedure and treatment not carried out because of patient's decision for other reasons (principal); Z45.2 Encounter for adjustment and management of vascular access device; D50.9 Iron deficiency anemia, unspecified ==

== ENCOUNTER 2022-05-17 11:31 | Outpatient (REF) | payer OTHER, SELFPAY | END 2022-05-17 11:32 | disposition home or self-care (01) | LOC: HO.MDS 11:31 | PROVIDERS: Visit Provider Internal Medicine | DX: D50.9 Iron deficiency anemia, unspecified (principal) | CPT/HCPCS: 96365; J1756 ==

== ENCOUNTER 2022-05-24 11:32 | Outpatient (REF) | payer OTHER, SELFPAY | END 2022-05-24 11:33 | disposition home or self-care (01) | LOC: HO.MDS 11:32 | PROVIDERS: Visit Provider Internal Medicine | DX: D50.9 Iron deficiency anemia, unspecified (principal); Z53.9 Procedure and treatment not carried out, unspecified reason ==

== ENCOUNTER → 2022-05-24 11:37 | Day surgery (SDC) | payer OTHER, SELFPAY ==
--- NOTE | ~2022-05-24 | US_ITS ---
EXAMINATION: US ABDOMEN COMPLETE CLINICAL INFORMATION: Cirrhosis of liver. COMPARISON: Ultrasound abdomen limited 05/04/2021. CT abdomen pelvis same date. TECHNIQUE: Real-time imaging of the abdominal viscera. FINDINGS: PANCREAS: Visualized portions of the pancreas are unremarkable. The pancreatic tail is obscured by bowel gas. ABDOMINAL AORTA: The proximal, mid, and distal segments are normal in caliber. INFERIOR VENA CAVA: Visualized portions are normal. LIVER: The liver is normal in size. Heterogeneous liver with nodular contour compatible with cirrhosis. No focal hepatic lesion. There is no intrahepatic biliary duct dilatation seen. GALLBLADDER: Normal. The gallbladder is physiologically distended without evidence of stones, sludge, polyps, wall thickening or pericholecystic fluid. COMMON BILE DUCT: Normal in caliber measuring 0.3 cm in diameter. RIGHT KIDNEY: Normal. No hydronephrosis. No renal calculi or focal parenchymal lesions. The kidney measures 11.6 cm in maximum dimension. LEFT KIDNEY: Normal. No hydronephrosis. No renal calculi or focal parenchymal lesions. The kidney measures 12.2 cm in maximum dimension. SPLEEN: Spleen is enlarged. The spleen measures 21.0 cm in maximum dimension. FREE FLUID: None. Large right pleural effusion. US/US abdomen complete IMPRESSION: 1. Cirrhotic morphology of the liver. No hepatic mass. 2. Splenomegaly. 3. Large right pleural effusion.
== END ==
PROVIDERS: PCP Internal Medicine; Visit Provider Internal Medicine
DX: R18.8 Other ascites (principal); Z53.8 Procedure and treatment not carried out for other reasons
CPT/HCPCS: 76700

== ENCOUNTER 2022-05-26 11:40 | Outpatient (REF) | payer OTHER, SELFPAY | END 2022-05-26 11:41 | disposition home or self-care (01) | LOC: HO.MDS 11:40 | PROVIDERS: Visit Provider Internal Medicine | DX: D50.9 Iron deficiency anemia, unspecified (principal) | CPT/HCPCS: 96365; J1756 ==

== ENCOUNTER 2022-06-03 14:37 | Outpatient (REF) | payer OTHER, SELFPAY | END 2022-06-03 14:38 | disposition home or self-care (01) | LOC: HO.MDS 14:37 | PROVIDERS: Visit Provider Internal Medicine | DX: D50.9 Iron deficiency anemia, unspecified (principal) | CPT/HCPCS: 96365; J1756 ==

== ENCOUNTER 2022-06-07 11:39 | Outpatient (REF) | payer OTHER, SELFPAY ==
[2022-06-07 13:12] LABS: MANUAL DIFF FLAG NO
[2022-06-07 13:15] LABS: Basophils Percent Auto 0.4 % (0-2); Eosinophils Percent Auto 1.5 % (0-4); Hematocrit 26.8 % (37.0-47.0); Hemoglobin 7.7 g/dl (12.0-16.0); Imm Gran Abs Auto 0.01 X10*3/uL (0.00-0.03); Imm Gran Pct Auto 0.4 % (0.0-0.4); Lymphocytes Absolute Auto 0.6 X10*3/uL (1.2-4.9); Lymphocytes Percent Auto 20.7 % (20-40); Mean Corpuscular HGB Conc 28.7 g/dl (31.0-35.0); Mean Corpuscular Hemoglobin 26.5 pg (27.0-33.0); Mean Corpuscular Volume 92.1 fL (80.0-98.0); Mean Platelet Volume 11.8 fL (9.4-12.3); Monocytes Absolute Auto 0.3 X10*3/uL (0.1-1.2); Monocytes Percent Auto 9.8 % (2-11); Neutrophils Absolute Auto 1.9 x10*3/uL (2.0-8.3); Neutrophils Percent Auto 67.2 % (45-73); Red Blood Count 2.91 X10*6/uL (4.20-5.50); Red Cell Distribution Width 22.5 % (11.0-16.0); White Blood Count 2.8 X10*3/uL (4.8-10.8)
[2022-06-07 13:16] LABS: Platelet Count 84 X10*3/uL (160-400)
== END 2022-06-07 11:40 | disposition home or self-care (01) ==
LOC: HO.MDS 11:39
PROVIDERS: Visit Provider Internal Medicine
DX: D50.9 Iron deficiency anemia, unspecified (principal)
CPT/HCPCS: 36415; 85025; 96365; J1756

== ENCOUNTER → 2022-06-21 10:52 | Day surgery (SDC) | payer OTHER, SELFPAY ==
--- NOTE | 2022-06-21 11:17 | PC.NURSE ---
PATIENT ARRIVED ONE HOUR LATE TO PROCEDURE. WHEN IN PREOP PATIENT STATED I HAD A 101 FEVER THIS MORNING, I FEEL LIKE SOMETHING IS BREWING, I TOOK TYLENOL . TEMP TAKEN, 99.9. PATIENT COUGHING AT BEDSIDE, STATES SHE FEELS BLAH . PATEL SHELBY RN MADE AWARE. PER DR. RAJAN, CASE TO BE RESCHEDULED. ONCOLOGY MADE AWARE BY THIS RN. PATIENT AWARE OF PLAN AND TO EXPECT A CALL SOON FOR RESCHEDULED DATE.
== END ==
PROVIDERS: PCP Internal Medicine; Visit Provider Internal Medicine
DX: D61.818 Other pancytopenia (principal); Z53.09 Procedure and treatment not carried out because of other contraindication; D64.9 Anemia, unspecified; R50.9 Fever, unspecified

== ENCOUNTER 2022-07-28 07:45 | Inpatient (IN) | payer OTHER, SELFPAY ==
[2022-07-28] VITALS (17 sets, daily range): BP systolic 78–166; BP diastolic 37–97; PULSE 74–103; RESP 16–23; TEMP 31–36.7; O2SAT 70–100; BMI 30.1
--- NOTE | ~2022-07-28 | XR_ITS ---
EXAMINATION: XR CHEST CLINICAL INFORMATION: ET tube. COMPARISON: Chest radiographs 07/28/2022, CT chest 07/28/2022 TECHNIQUE: Supine portable AP view of the chest was obtained at approximately 1615 hours. FINDINGS: Right chest tube seen on prior exam is not present. There is an ET tube with tip oblique 1.5 cm above norma. Repositioning suggested. Left lung is clear. Patient is slightly rotated. There is some volume loss on the right with patchy airspace opacity and elevation diaphragm as before. No visible pneumothorax or pneumomediastinum. Critical result communicated and confirmed with Carla Agrawal PA-C via secure text at 1708 hours. XR/XR chest 1V IMPRESSION: - ET tube 1.5 cm above norma. Repositioning suggested. - Right chest tube not present. No visible pneumothorax or pneumomediastinum. - Right lung volume loss with patchy airspace opacity and elevation diaphragm as before. Left lung clear.
--- NOTE | ~2022-07-28 | CT_ITS ---
EXAMINATION: CT chest wo IV con. CLINICAL INFORMATION: Reason for Exam effusion, chest tube dislodgement COMPARISON: Prior CT from 07/28/2022 TECHNIQUE: Multidetector volumetric CT imaging of the chest was done. Axial MIP volume rendering provided. Sagittal and coronal reformatted images were obtained. This CT examination was performed using dose optimization techniques as appropriate, variously including the following: *Automated exposure control *Adjustment of mA and/or kV according to patient size (this includes techniques or standardized protocols for targeted exams where dose is matched to indication/reason for exam; i.e. extremities or head) *Use of iterative reconstruction technique CONTRAST: Noncontrasted study. 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 Gastric tube passing below the diaphragm into the stomach the tip excluded from film margins. LUNGS: Redemonstration of diffuse dense consolidation of almost the entire right lung lower lobe and patchy consolidations of the right upper lobe and middle lobe, dense consolidation with air bronchogram with adjacent small right pleural effusion. Left lung relatively spared except for very mild atelectasis at left lung base. . AIRWAYS: Endotracheal tube tip is in the right main bronchus. PLEURA: Small right pleural effusion significantly improved from prior exam. MEDIASTINUM AND ERIKA: Assessment for lymphadenopathy limited due to lack of contrast. No mediastinal mass. VESSELS: HEART AND PERICARDIUM: Thoracic aorta is normal in size. Heart is normal in size. No pericardial effusion. There are heavy coronary calcifications. Pulmonary arteries are normal in size. LOWER NECK, AXILLA: The visualized thyroid gland is unremarkable. No axillary mass or adenopathy. VISUALIZED ABDOMEN: Unremarkable CHEST WALL AND BONES: There is subcutaneous emphysema along the right side likely from prior chest tube placement. CT/CT chest wo IV con IMPRESSION: * Endotracheal tube tip is in the right main bronchus, need to be pulled back approximately 4 cm. * Gastric tube passing below the diaphragm into the stomach the tip excluded from film margins. * Redemonstration of diffuse dense consolidation of almost the entire right lung, patchy consolidations of the right upper lobe and middle lobe. Attention to follow-up recommended to ensure complete clearance and exclude underlying pathology. Recommend CT scan in 3 months after completion of treatment. * Small right pleural effusion significantly improved from prior exam. * Mild atelectasis at left lung base. * Coronary calcification. This critical result was discussed with eBata Agrawal by telephone at 07/28/2022 6:05 PM and it was ascertained that the content and urgency of the report was understood at the time of direct communication.
--- NOTE | ~2022-07-28 | XR_ITS ---
EXAMINATION: XR chest 1V CLINICAL INFORMATION: Reason for Exam NG tube placement COMPARISON: Prior chest x-ray 07/28/2022 TECHNIQUE: XR chest 1V Tubes and lines: Endotracheal tube tip is 3 cm above norma, gastric tube passing below the diaphragm into the stomach properly positioned. Lungs and pleura: Opacification over the right middle and lower lung unchanged. Probably a combination of pleural effusion with possible underlying infiltrate and/or atelectasis. Left lung remain clear. Heart and mediastinum: The mediastinum is within normal limits.. Bones/soft tissue: Skeletal structures included are normal for patient's age. XR/XR chest 1V IMPRESSION: * Endotracheal tube and gastric tube properly positioned. * Opacification over the right middle and lower lung unchanged probably a combination of pleural effusion with possible underlying infiltrate and/or atelectasis. * Left lung remain clear.
--- NOTE | ~2022-07-28 | CT_ITS ---
EXAMINATION: CT CHEST WITH CONTRAST CLINICAL INFORMATION: Abnormal chest x-ray COMPARISON: Chest x-ray from earlier the same day TECHNIQUE: Multidetector volumetric CT imaging of the chest was obtained after the administration of 65 mL of Omnipaque 350 intravenous contrast without immediate adverse reactions. Axial MIP volume rendering provided. Sagittal and coronal reformatted images were obtained. This CT examination was performed using dose optimization techniques as appropriate, variously including the following: *Automated exposure control *Adjustment of mA and/or kV according to patient size (this includes techniques or standardized protocols for targeted exams where dose is matched to indication/reason for exam; i.e. 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 Scattered groundglass attenuation areas in the left upper lobe. Largest measures 1 x 1.6 cm axial image 181 series 4. Small calcified right upper lobe nodule axial image 154 series 4 measuring 4 mm. MEDIASTINUM: Mild to moderate coronary artery calcification. The mediastinum is otherwise normal. PLEURA: Large right pleural effusion. No pleural mass. No left pleural effusion. AXILLA: No lymphadenopathy. UPPER ABDOMEN: Cirrhotic liver, splenomegaly, varices and small amount of ascites. No hernia containing fat. OSSEOUS STRUCTURES: Several Schmorl's nodes. CT/CT chest w IV con IMPRESSION: Large right pleural effusion and compressive atelectasis of the right lung. Nonspecific groundglass attenuation areas in the left upper lobe. This may represent an infectious/inflammatory process. Moderate coronary artery calcification. Cirrhosis, splenomegaly, ascites and varices. Right pleural effusion is probably secondary to liver disease. Fleischner guidelines were followed.
--- NOTE | ~2022-07-28 | XR_ITS ---
EXAMINATION: XR CHEST CLINICAL INFORMATION: Chest tube placement. COMPARISON: Chest radiograph 07/28/[address] chest 07/28/2022. TECHNIQUE: Frontal view of the chest was obtained. FINDINGS: A right-sided chest tube has been placed since the prior study, but the side hole is not within the pleural space. The large right-sided pleural effusion has significantly decreased in size since the prior study and there is a tiny apical pneumothorax present (see grant image). Heart size within normal limits. No evidence of CHF. Opacity at the right lung base may represent residual fluid or possibly atelectasis/infiltrate or a combination of the 2. Some minimal left basilar atelectasis is present. XR/XR chest 1V IMPRESSION: The right-sided chest tube has been placed, but the side hole is not within the pleural space. Considerable reduction in the volume of the right-sided pleural effusion. There is a tiny right apical pneumothorax present.
--- NOTE | ~2022-07-28 | CT_ITS ---
EXAMINATION: CT HEAD WITHOUT CONTRAST CLINICAL INFORMATION: Altered mental status. COMPARISON: None. TECHNIQUE: Contiguous axial imaging was performed from the skullbase to vertex without intravenous administration of contrast. This CT examination was performed using dose optimization techniques as appropriate, variously including the following: *Automated exposure control *Adjustment of mA and/or kV according to patient size (this includes techniques or standardized protocols for targeted exams where dose is matched to indication/reason for exam; i.e. extremities or head) *Use of iterative reconstruction technique DLP: 645 mGy-cm. FINDINGS: There is no evidence of acute intracranial hemorrhage or territorial infarction. No abnormal mass effect or midline shift is seen. [place] to white matter differentiation is well preserved. No extra-axial fluid collections are identified. The ventricles are normal in size. There is no abnormal attenuation within the brain parenchyma. The osseous structures and soft tissues are normal. The mastoid air cells and visualized portions of the paranasal sinuses are well aerated. CT/CT head/brain wo IV con IMPRESSION: No acute intracranial pathology.
--- NOTE | ~2022-07-28 | XR_ITS ---
EXAMINATION: XR CHEST CLINICAL INFORMATION: Dyspnea on exertion COMPARISON: Abdominal ultrasound 05/24/2022 TECHNIQUE: 2 views of the chest were obtained. FINDINGS: A large right pleural effusion is present with only a tiny bit of aerated lung in the right upper lobe. The left lung is clear. No left effusion is seen. XR/XR chest 2V IMPRESSION: Large right pleural effusion.
--- NOTE | 2022-07-28 07:55 | ED_ITS ---
HPI - General Adult General Chief complaint: General Medical Stated complaint: vomiting, diharea, SOB, weakness Time Seen by Provider: 07/28/22 07:54 Source: patient Mode of arrival: ambulatory Limitations: no limitations History of Present Illness HPI narrative: Patient is a 51 year old assigned female at with a history of Crohn's, anemia, hepatitis, DM, and HTN presenting to the emergency department today with nausea, vomiting, diarrhea, weakness, and shortness of breath. Patient states that over the last couple of days she has had nausea, vomiting, diarrhea, and weakness however, over the last 24 hours she has had worsening shortness of breath. Patient states that in the past she has needed multiple blood transfusions and has anaphylaxis every time. Patient states that she follows with our heme/onc team. Patient denies any dizziness, lightheadedness, abdominal pain, fever, chills, blurry vision, double vision, loss of vision, chest pain, back pain, night sweats, pain with urination, increased urinary frequency, increased urinary urgency, blood in her urine or stool, syncope or a near syncopal episode, recent trauma or falls, bowel incontinence, bladder incontinence, bowel retention, bladder retention, or any other complaints at this time. Onset (ago): day(s) Severity: mild Severity scale (1-10): 2 Relieving factors: none Exacerbating factors: none Associated symptoms: nausea/vomiting Treatments prior to arrival: none Related Data Home Medications Medication Instructions Recorded Confirmed methadone 10 mg/mL oral concentrate 76 mg PO DAILY 05/04/21 06/07/22 levothyroxine 50 mcg tablet 50 mcg PO DAILY@0600 07/28/22 07/28/22 multivitamin 1 tab PO DAILY 07/28/22 07/28/22 Previous Rx's Medication Instructions Recorded acyclovir 400 mg tablet 400 mg PO BEDTIME #90 tabs 05/05/22 metformin 500 mg tablet 500 mg PO BID 90 days #180 tabs 05/05/22 omeprazole 40 mg capsule,delayed 40 mg PO BEDTIME 90 days #90 caps 05/05/22 release metoprolol succinate 50 mg 50 mg PO DAILY 90 days #90 tabs 06/02/22 tablet,extended release 24 hr Allergies Allergy/AdvReac Type Severity Reaction Status Date / Time ciprofloxacin [Cipro] Allergy Unknown swelling Verified 05/10/22 08:13 of the throat , hives nitrofurantoin AdvReac Liver Verified 05/10/22 08:13 [From Macrobid] cirrhosis decompensation Review of Systems Constitutional: Constitutional: Reports no additional constitutional complaints, Denies chills, Denies fever(s) and Denies night sweats Eyes: Eyes: Reports no additional eye complaints, Denies blurry vision, Denies change in vision, Denies diplopia, Denies eye discharge, Denies loss of vision and Denies eye pain ENT: Denies dizziness Cardiovascular: Cardiovascular: Reports no additional cardiovascular complaints, Denies chest pain, Denies lightheadedness, Denies Loss of Consciousness and Denies dyspnea Respiratory: Respiratory: Reports no additional respiratory complaints and Denies dyspnea Gastrointestinal: Gastrointestinal: Reports no additional gastrointestinal complaints, Denies abdominal pain, Denies melena, Denies hematochezia, Denies change in bowel habits, Denies change in stool character, Reports diarrhea, Reports nausea and Reports vomiting Genitourinary: Genitourinary: Denies hematuria, Denies urinary frequency, Denies dysuria, Denies urinary incontinence, Denies urinary hesitancy and Denies urinary urgency Musculoskeletal: Musculoskeletal: Reports no additional musculoskeletal complaints, Denies numbness and Denies tingling Neurologic: Denies dizziness, Denies loss of vision, Denies numbness and Denies tingling Psychiatric: Psychiatric: Reports no additional psychiatric complaints Endocrine: Endocrine: Reports no additional endocrine complaints Hematologic/Lymphatic: Hematologic/Lymphatic: Reports no additional hematologic/lymphatic complaints Allergic/Immunologic: Allergic/Immunologic: Reports no additional allergic/immunologic complaints [facility] Past Medical History Attestation statement: The following information was validated with the patient. 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 Other Mental health disorder Substance use disorder Social History Social History Household Members: None Housing: Apartment Are you a primary healthcare manager to a significant other at home: No Do you presently have visiting nurse or other home services: No Patient Tobacco Use Status: Current someday Tobacco user Tobacco use type: Cigarette Years Smoked: 17 years old e-Cigarette/Vaping Use: Never Used Advance Directives: No Advance Directives Information Provided: No service: No Current occupational status: employed Cognitive needs: No Hearing needs: No Vision needs: No Physical Exam ED Vital Signs: Vital Signs - 24 hr 07/28/22 07:55 07/28/22 11:23 07/28/22 12:16 Temperature 98.0 F Pulse Rate 88 88 Respiratory Rate 20 16 Blood Pressure 153/97 H 133/73 Pulse Oximetry 91 L 91 L 88 L Oxygen Delivery Method Room Air Room Air 07/28/22 14:13 07/28/22 14:14 Temperature Pulse Rate 92 Respiratory Rate Blood Pressure Pulse Oximetry 70 L 91 L Oxygen Delivery Method Room Air Non-Rebreather Mask BMI result Body Mass Index 30.1 Const General: cooperative, no acute distress, alert and awake Nutritional Appearance: well nourished Orientation/consciousness: patient oriented x3 Limitations: no limitations HENMT Head: Yes normal to inspection and Yes atraumatic Ears: hearing grossly normal bilaterally and external ears normal General nose exam: Normal external nose present, no nasal discharge noted and no epistaxis Face and sinus: Yes normal facial exam, No abrasion and No laceration Mouth: Normal oral and palatal mucosa present, no drooling and no muffled voice Eyes General: appearance normal, both eyes and all related structures Periorbital: periorbital findings normal Eyelids: Yes eyelids normal Conjunctivae: conjunctivae normal Pupils: Equal, round and reactive pupils present EOM: EOMs intact bilaterally Neck Neck: Yes normal visual inspection, Yes full ROM and Yes no lymphadenopathy Chest Chest palpation & inspection: normal inspection of the chest Resp Effort & Inspection: normal respiratory effort and able to speak in complete sentences Auscultation: diminished lung sounds on the right in the lower lung yanes Cardio Rate: regular rate Rhythm: regular rhythm GI Inspection: Yes normal to inspection Palpation (GI): Soft to palpation, not firm, nontender and no guarding General: Yes no CVA tenderness Back/Spine/Pelvis Back: no CVA tenderness Neuro General: patient oriented x3 and moves all extremities Cranial nerves: Yes Equal, round and reactive pupils present Cognition (Neuro): normal cognition Motor exam (neuro): 5/5 motor strength present throughout Sensory Exam: Normal double simultaneous stimulation for sensation Coordination: [id number] test normal Extrem General: Yes normal to inspection, Yes full ROM and Yes capillary refill normal Psych Appearance: grossly normal Mental Status: mental status grossly normal Affect: normal affect Attitude: cooperative Thought process: Normal thought process present Thought content: Normal thought content present Insight: Good insight present (Psych) Course Reevaluation(s) Reevaluation #1: Patient had a chest tube successfully placed by Dr. Arboleda and 2 liters of fluid was drained. Culture, gram stain, and cell count ordered on that fluid. Patient became hypoxic and had an episode of vomiting. Patient was placed on NRB and her oxygen saturation went up. Attending physician Dr. Guaman and I were at the bed side. Patient was given intranasal narcan due to her recent receiving dilaudid. Patient's oxygen saturation continued to improve however, the patient became agitated and began pulling at her newly placed chest tube. At that time the patient was transitioned to an oxymask and given 2mg of ativan to help with the agitation and placed in 4 point soft restraints with a dedicated sitter at the bed side. Time: 14:46 Reevaluation #2: Patient continued to be agitated and attempt to rip at her chest tube. Spoke with my attending physicain Dr. Guaman who recommended IM Haldol and Benadryl. Time: 15:09 Reevaluation #3: It was determined that the patient should be intubated to protect her airway. During patient's agitated episode, she dislodged her chest tube. RSI was performed by Dr. Guaman. Intubation was successful with a 7.5 tube 23cm in at the lips. ICU does not have capacity at this time. Patient will have to be transferred out. Patient's chest XR showed correct ET tube placement however, it showed the return of the previously improving right sided pleural effusion secondary to the chest tube being dislodged. Time: 15:57 Additional Reevaluation(s): 16:30 - Spoke to Dr. Arboleda who recommended not replacing the dislodged chest tube but rather placing an occlusive dressing over the previous chest tube opening. 17:08 - Informed by Dr. Sorto the radiologist that the ET tube needs to be pulled back 1.5cm. RT made appropriate tube adjustment. Patient remains hemodynamically stable and appropriately sedated on propofol drip. 17:14 - CXR showed right sided patchy airspace opacity. Ceftriaxone and blood cultures ordered. Patient's clinical presentation is not consistent with sepsis (@1714). 17:30 - Spoke with Dr. Matt, the medical onyx chip terrazzo worker at [facility] who accepted the patient as a transfer to their medical ICU. 17:40 - Spoke with the patient's mother Anna and the patient's sister who did not identify herself on the phone. Informed them of the patient's current condition and plan for transfer to the medical ICU of [facility]. They verbalized agreement and understanding with this treatment plan and transfer. 18:04 - Called by [facility] radiology and informed the ET tube needed to be backed out 1.5cm based on the chest CT however, that chest CT was taken before Dr. Sorto informed us the tube needed to be backed out. It has already been adjusted appropriately. Medications Administered Generic Name Dose Route Start Last Admin Trade Name Freq PRN Reason Stop Dose Admin Propofol 1,000 mg in 100 mls @ 0 mls/hr 07/28/22 15:59 07/28/22 17:17 Diprivan IVCONT 50 mcg/kg/min .Q0M FLORENCIO 23.13 mls/hr Administration Protocol Per Protocol Sodium Chloride 3 ml 07/28/22 16:00 07/28/22 17:19 0.9 % Sodium Chloride Flush 3 Ml Syringe IVFLUSH Not Given QSHIFT FLORENCIO Discontinued Medications Generic Name Dose Route Start Last Admin Trade Name Freq PRN Reason Stop Dose Admin Diphenhydramine HCl 50 mg 07/28/22 15:09 07/28/22 15:38 Diphenhydramine Hcl 50 Mg/Ml Vial IM 07/28/22 15:10 50 mg ONCE ONE Administration Etomidate 20 mg 07/28/22 15:57 07/28/22 15:57 Etomidate 20 Mg/10 Ml Vial IVPUSH 07/28/22 15:58 20 mg ONCE ONE Administration Haloperidol Lactate 5 mg 07/28/22 15:09 07/28/22 15:39 Haloperidol Lactate 5 Mg/Ml Vial IM 07/28/22 15:10 5 mg ONCE ONE Administration Hydromorphone HCl 2 mg 07/28/22 13:00 07/28/22 13:07 Hydromorphone Hcl 2 Mg/Ml Vial IVPUSH 07/28/22 13:01 2 mg ONCE ONE Administration Protocol Sodium Chloride 1,000 mls @ 999 mls/hr 07/28/22 08:00 07/28/22 10:45 Ns IV 07/28/22 09:00 Not Given .Q1H1M FLORENCIO Iohexol 65 ml 07/28/22 10:50 07/28/22 10:51 Iohexol 350 Mg/Ml 100 Ml Infus..Btl IV 07/28/22 10:51 65 ml ONCE ONE Administration Lorazepam 2 mg 07/28/22 13:17 07/28/22 13:22 Lorazepam 2 Mg/Ml Vial IVPUSH 07/28/22 13:18 2 mg ONCE ONE Administration Lorazepam 2 mg 07/28/22 14:46 07/28/22 14:46 Lorazepam 2 Mg/Ml Vial IVPUSH 07/28/22 14:47 2 mg ONCE ONE Administration Naloxone HCl 4 mg 07/28/22 14:46 07/28/22 15:00 Naloxone Hcl Nasal 4 Mg [place] NOSTRILALT 07/28/22 14:47 4 mg ONCE ONE Administration Ondansetron HCl 4 mg 07/28/22 08:20 07/28/22 08:35 Ondansetron Odt 4 Mg Tab.Rapdis TRANSLINGU 07/28/22 08:21 4 mg ONCE ONE Administration Rocuronium [place] 50 mg 07/28/22 15:57 07/28/22 15:57 Rocuronium [place] 50 Mg/5 Ml Vial IVPUSH 07/28/22 15:58 50 mg ONCE ONE Administration Medical Decision Making Medical Decision Making MDM Narrative: Patient is a 51 year old assigned female at with a history of Crohn's, anemia, hepatitis, DM, and HTN presenting to the emergency department today with nausea, vomiting, and shortness of breath. Patient's physical exam showed significantly diminished lung sounds in the right lung and nearly absent lung sounds in the right lower lobe. Patient was 91% at rest on room air. When I got her up to walk her, she desaturated to 88% on room air. Patient's blood work was consistent with her previous levels including a chronic hgb of 7.6, AST of 44, and albumin of 3.2. Patient's chest x-ray showed a large right pleural effusion with only a tiny bit of aerated lung in the right upper lobe. I spoke to Dr. Arboleda who was assisting with thoracic coverage, who recommended placing a chest tube to drain the effusion. Hospitalist team agreed to admission while awaiting for Dr. Arboleda to place the chest tube. Please refer to the course of this note for the rest of my medical decision making. Differential Diagnosis Differential Diagnoses: The differential diagnosis associated with the presentation includes pleural effusion, shortness of breath Admission/Observation Consideration of admission/observation: Escalation of care including admission/observation considered Please refer to the course of this note for explanation of patient's admission. Consult Healthcare Provider Management of the patient was discussed with: Hospitalist (as noted in the MDM portion of this chart.) and Regulatory Law Specialist (as noted in the MDM and course portions of this note.) Lab Data MDM Lab Attestation statement: I reviewed the patient's lab results. Please refer to the course and MDM portions of this note for my interpretation of these labs. 07/28/22 08:17 07/28/22 08:17 Labs: Lab Results 07/28/22 07/28/22 07/28/22 Range/Units 08:17 08:17 08:17 WBC 4.4 L (4.8-10.8) X10*3/uL RBC 2.74 L (4.20-5.50) X10*6/uL Hgb 7.6 L (12.0-16.0) g/dl Hct 26.0 L (37.0-47.0) % MCV 94.9 (80.0-98.0) fL MCH 27.7 (27.0-33.0) pg MCHC 29.2 L (31.0-35.0) g/dl RDW 17.8 H (11.0-16.0) % Plt Count 100 L D (160-400) X10*3/uL MPV 10.6 (9.4-12.3) fL Immature Gran % (Auto) 0.2 (0.0-0.4) % Neut % (Auto) 77.7 H (45-73) % Lymph % (Auto) 15.7 L (20-40) % [place] % (Auto) 5.7 (2-11) % Eos % (Auto) 0.5 (0-4) % Baso % (Auto) 0.2 (0-2) % Lymph # (Auto) 0.7 L (1.2-4.9) X10*3/uL [place] # (Auto) 0.3 (0.1-1.2) X10*3/uL Eos # (Auto) 0.0 (0.0-0.4) X10*3/uL Baso # (Auto) 0.0 (0.0-0.2) X10*3/uL Abs Immat Gran (auto) 0.01 (0.00-0.03) X10*3/uL Absolute Neuts (auto) 3.4 (2.0-8.3) x10*3/uL Absolute Nucleated RBC 0.000 (0.0-0.012) X10*3/uL Nucleated RBC % (auto) 0.0 (0.0-0.2) /100WBC Sodium 143 (135-145) mmol/L Potassium 4.1 (3.3-5.1) mmol/L Chloride 109 H (96-108) mmol/L Carbon Dioxide 26 (22-29) mmol/L Anion Gap 12 (12-20) BUN 14 (9-16) mg/dL Creatinine 0.72 (0.5-1.4) mg/dL Estim Creat Clear Calc 90.9 Estimated GFR > 60 Random Glucose 159 H (60-115) mg/dL Calcium 8.7 (8.4-10.2) mg/dL Magnesium 1.8 (1.6-2.6) mg/dL Total Bilirubin 1.6 H (0.0-1.0) mg/dL AST 44 H (5-31) U/L ALT 22 (0-31) U/L Alkaline Phosphatase 102 (39-117) U/L B-Natriuretic Peptide (<100) pg/mL Total Protein 7.7 (6.5-8.0) g/dL Albumin 3.2 L (3.5-5.0) g/dL COVID-19 ([place]) Negative (Negative) COVID-19 Clin Com See Note 06/14/23 Range/Units 08:17 WBC (4.8-10.8) X10*3/uL RBC (4.20-5.50) X10*6/uL Hgb (12.0-16.0) g/dl Hct (37.0-47.0) % MCV (80.0-98.0) fL MCH (27.0-33.0) pg MCHC (31.0-35.0) g/dl RDW (11.0-16.0) % Plt Count (160-400) X10*3/uL MPV (9.4-12.3) fL Immature Gran % (Auto) (0.0-0.4) % Neut % (Auto) (45-73) % Lymph % (Auto) (20-40) % [place] % (Auto) (2-11) % Eos % (Auto) (0-4) % Baso % (Auto) (0-2) % Lymph # (Auto) (1.2-4.9) X10*3/uL [place] # (Auto) (0.1-1.2) X10*3/uL Eos # (Auto) (0.0-0.4) X10*3/uL Baso # (Auto) (0.0-0.2) X10*3/uL Abs Immat Gran (auto) (0.00-0.03) X10*3/uL Absolute Neuts (auto) (2.0-8.3) x10*3/uL Absolute Nucleated RBC (0.0-0.012) X10*3/uL Nucleated RBC % (auto) (0.0-0.2) /100WBC Sodium (135-145) mmol/L Potassium (3.3-5.1) mmol/L Chloride (96-108) mmol/L Carbon Dioxide (22-29) mmol/L Anion Gap (12-20) BUN (9-16) mg/dL Creatinine (0.5-1.4) mg/dL Estim Creat Clear Calc Estimated GFR Random Glucose (60-115) mg/dL Calcium (8.4-10.2) mg/dL Magnesium (1.6-2.6) mg/dL Total Bilirubin (0.0-1.0) mg/dL AST (5-31) U/L ALT (0-31) U/L Alkaline Phosphatase (39-117) U/L B-Natriuretic Peptide 47 (<100) pg/mL Total Protein (6.5-8.0) g/dL Albumin (3.5-5.0) g/dL COVID-19 ([place]) (Negative) COVID-19 Clin Com Independent Interpretation I performed an independent interpretation of an: Plain X-Ray and CT Scan Interpretation: My interpretation is in agreement with the radiologist's impression of these imaging studies. EXAMINATION: XR CHEST CLINICAL INFORMATION: Dyspnea on exertion COMPARISON: Abdominal ultrasound 05/24/2022 TECHNIQUE: 2 views of the chest were obtained. FINDINGS: A large right pleural effusion is present with only a tiny bit of aerated lung in the right upper lobe. The left lung is clear. No left effusion is seen. XR/XR chest 2V IMPRESSION: Large right pleural effusion. Dictated By: Mikhail Kinney MD Signed By: Electronically signed by Mikhail Kinney MD 07/28/22 1017 EXAMINATION: CT CHEST WITH CONTRAST CLINICAL INFORMATION: Abnormal chest x-ray? COMPARISON: Chest x-ray from earlier the same day TECHNIQUE: Multidetector volumetric CT imaging of the chest was obtained after the administration of 65 mL of Omnipaque 350 intravenous contrast without immediate adverse reactions. Axial MIP volume rendering provided. Sagittal and coronal reformatted images were obtained. This CT examination was performed using dose optimization techniques as appropriate, variously including the following: *Automated exposure control *Adjustment of mA and/or kV according to patient size (this includes techniques or standardized protocols for targeted exams where dose is matched to indication/reason for exam; i.e. extremities or head) *Use of iterative reconstruction technique DLP: 427 mGy-cm FINDINGS: CREATIVE SERVICES WRITER: Large right pleural effusion LUNGS: Compressive atelectasis of the right upper middle and lower lobes. Scattered groundglass attenuation areas in the left upper lobe. Largest measures 1 x 1.6 cm axial image 181 series 4. Small calcified right upper lobe nodule axial image 154 series 4 measuring 4 mm. MEDIASTINUM: Mild to moderate coronary artery calcification. The mediastinum is otherwise normal. PLEURA: Large right pleural effusion. No pleural mass. No left pleural effusion. AXILLA: No lymphadenopathy.? UPPER ABDOMEN: Cirrhotic liver, splenomegaly, varices and small amount of ascites. No hernia containing fat. OSSEOUS STRUCTURES: Several Schmorl's nodes. CT/CT chest w IV con IMPRESSION: Large right pleural effusion and compressive atelectasis of the right lung. Nonspecific groundglass attenuation areas in the left upper lobe. This may represent an infectious/inflammatory process. Moderate coronary artery calcification. ? Cirrhosis, splenomegaly, ascites and varices. Right pleural effusion is probably secondary to liver disease. ? Fleischner guidelines were followed. Dictated By: Lavinia Coleman MD Signed By: Electronically signed by Lavinia Coleman MD 07/28/22 1207 EXAMINATION: XR CHEST CLINICAL INFORMATION: Chest tube placement. COMPARISON: Chest radiograph 07/28/[address] chest 07/28/2022. TECHNIQUE: Frontal view of the chest was obtained. FINDINGS: A right-sided chest tube has been placed since the prior study, but the side hole is not within the pleural space. The large right-sided pleural effusion has significantly decreased in size since the prior study and there is a tiny apical pneumothorax present (see grant image). Heart size within normal limits. No evidence of CHF. Opacity at the right lung base may represent residual fluid or possibly atelectasis/infiltrate or a combination of the 2. Some minimal left basilar atelectasis is present. XR/XR chest 1V IMPRESSION: The right-sided chest tube has been placed, but the side hole is not within the pleural space. Considerable reduction in the volume of the right-sided pleural effusion. There is a tiny right apical pneumothorax present. Dictated By: Mikhail Kinney MD Signed By: Electronically signed by Mikhail Kinney MD 07/28/22 1517 EXAMINATION: XR CHEST CLINICAL INFORMATION: ET tube. COMPARISON: Chest radiographs 07/28/2022, CT chest 07/28/2022 TECHNIQUE: Supine portable AP view of the chest was obtained at approximately 1615 hours. FINDINGS: Right chest tube seen on prior exam is not present. There is an ET tube with tip oblique 1.5 cm above norma. Repositioning suggested. Left lung is clear. Patient is slightly rotated. There is some volume loss on the right with patchy airspace opacity and elevation diaphragm as before. No visible pneumothorax or pneumomediastinum. Critical result communicated and confirmed with Carla Agrawal PA-C via secure text at 1708 hours. XR/XR chest 1V IMPRESSION: - ET tube 1.5 cm above norma. Repositioning suggested. - Right chest tube not present. No visible pneumothorax or pneumomediastinum. - Right lung volume loss with patchy airspace opacity and elevation diaphragm as before. Left lung clear. Dictated By: Mikhail Sorto MD Signed By: Electronically signed by Mikhail Sorto MD 07/28/22 4016 EXAMINATION: CT HEAD WITHOUT CONTRAST CLINICAL INFORMATION: Altered mental status. COMPARISON: None. TECHNIQUE: Contiguous axial imaging was performed from the skullbase to vertex without intravenous administration of contrast. This CT examination was performed using dose optimization techniques as appropriate, variously including the following: *Automated exposure control *Adjustment of mA and/or kV according to patient size (this includes techniques or standardized protocols for targeted exams where dose is matched to indication/reason for exam; i.e. extremities or head) *Use of iterative reconstruction technique DLP: 645 mGy-cm. FINDINGS: There is no evidence of acute intracranial hemorrhage or territorial infarction. No abnormal mass effect or midline shift is seen. [place] to white matter differentiation is well preserved. No extra-axial fluid collections are identified. The ventricles are normal in size. There is no abnormal attenuation within the brain parenchyma. The osseous structures and soft tissues are normal. The mastoid air cells and visualized portions of the paranasal sinuses are well aerated. CT/CT head/brain wo IV con IMPRESSION: No acute intracranial pathology. Dictated By: DESHAWN ABARCA MD Signed By: Electronically signed by DESHAWN ABARCA MD 07/28/22 5225 Independent Historian Clinical information obtained from an independent historian. History obtained from or confirmed by: Parent (Patient's mother provided additional history and confirmed history provided by the patient.) and Other (Patient's sister provided additional history and confirmed history provided by the patient.) Chronic Conditions Patient?s care impacted by: Diabetes and Other (Hepatitis, Cirrhosis) Critical Care Time Critical Care Time Critical Care Time: Yes Total Critical Care Time: 90 Attestation: I spent 90 minutes of Critical Care Time with this patient. This does not include time spent on separately reported billable procedures. Discharge Plan Discharge Clinical Impression: Pleural effusion, Restlessness and agitation Patient Disposition: [facility] Transfer Details: [facility] ICU
[2022-07-28 08:24] LABS: MANUAL DIFF FLAG NO
[2022-07-28 08:25] LABS: Basophils Percent Auto 0.2 % (0-2); Eosinophils Percent Auto 0.5 % (0-4); Hemoglobin 7.6 g/dl (12.0-16.0); Imm Gran Abs Auto 0.01 X10*3/uL (0.00-0.03); Imm Gran Pct Auto 0.2 % (0.0-0.4); Lymphocytes Absolute Auto 0.7 X10*3/uL (1.2-4.9); Lymphocytes Percent Auto 15.7 % (20-40); Mean Corpuscular HGB Conc 29.2 g/dl (31.0-35.0); Mean Corpuscular Hemoglobin 27.7 pg (27.0-33.0); Mean Corpuscular Volume 94.9 fL (80.0-98.0); Mean Platelet Volume 10.6 fL (9.4-12.3); Monocytes Absolute Auto 0.3 X10*3/uL (0.1-1.2); Monocytes Percent Auto 5.7 % (2-11); Neutrophils Absolute Auto 3.4 x10*3/uL (2.0-8.3); Neutrophils Percent Auto 77.7 % (45-73); Platelet Count 100 X10*3/uL (160-400); Red Blood Count 2.74 X10*6/uL (4.20-5.50); Red Cell Distribution Width 17.8 % (11.0-16.0); White Blood Count 4.4 X10*3/uL (4.8-10.8)
[2022-07-28] MEDS: Ondansetron ODT 4 MG TAB.RAPDIS TRANSLINGU (08:35)
[2022-07-28 08:42] LABS: Alanine Aminotransferase 22 U/L (0-31); Albumin Level 3.2 g/dL (3.5-5.0); Alkaline Phosphatase 102 U/L (39-117); Anion Gap 12 (12-20); Aspartate Amino Transferase 44 U/L (5-31); Bilirubin Total 1.6 mg/dL (0.0-1.0); Blood Urea Nitrogen 14 mg/dL (9-16); Calcium 8.7 mg/dL (8.4-10.2); Carbon Dioxide 26 mmol/L (22-29); Chloride 109 mmol/L (96-108); Creatinine Clr Calc Pharmacy 90.9; Estimated Glomerular Filt Rate > 60; Glucose Random 159 mg/dL (60-115); Magnesium 1.8 mg/dL (1.6-2.6); Potassium 4.1 mmol/L (3.3-5.1); Sodium 143 mmol/L (135-145); Total Protein 7.7 g/dL (6.5-8.0)
[2022-07-28 08:50] LABS: COVID-19 Test Negative (Negative); IDNOW Serial# BCCEAD1C
--- NOTE | 2022-07-28 10:45 | PC.NURSE ---
Physician stating to hold IV fluids at this time due to sob
[2022-07-28] MEDS: iohexoL 350 MG/ML 100 ML INFUS..BTL 65 ML IV (10:51)
[2022-07-28 11:52] LABS: B Type Natriuretic Peptide 47 pg/mL (<100)
[2022-07-28] MEDS: HYDROmorphone HCl 2 MG/ML VIAL IVPUSH (13:07)
--- NOTE | 2022-07-28 13:19 | PHA.MEDREC ---
Pharmacy Consult ? Medication Reconciliation Pharmacy has completed the medication reconciliation. Pt able to confirm medications, states she gets 76mg methadone from [facility]
[2022-07-28] MEDS: LORazepam 2 MG/ML VIAL IVPUSH ×2 (13:22→14:46)
--- NOTE | 2022-07-28 13:58 | P.HPHOSP_ITS ---
History of Present Illness Date of Service: 07/28/22 <NORBERTO Pineda - Last Filed: 07/28/22 16:16> Attending physician on admission: Getachew Mancia <NORBERTO Pineda - Last Filed: 07/28/22 16:16> Chief Complaint: Weakness, SOB <NORBERTO Pineda - Last Filed: 07/28/22 16:16> ADDENDUM Pt did not end up coming to the medical floor but was intubated to protect her airway and admitted to the ICU. 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 At time of interview pt extremely agitated and restless and incapable of providing HPI or allowing physical examination. HPI thus obtained from clinician and chart review. Pt apparently had been experiencing increased shortness of breath for the past couple of weeks. Workup in the ED was unremarkable until chest x-ray showed large right pleural effusion likely secondary to liver cirrhosis. Patient apparently convinced her condition was from smoke from [employer] wildfires. Patient also has a history of pancytopenia, followed by Dr. Patel. Patient has had have transfusions in the past and states she has had ?an aphylaxis? from each transfusion. In the ED patient was afebrile, slightly hypertensive 53/97, satting at 88% O2 on RA. Labs were significant for stable anemia of 7.6/26.0, WBC of 4.4, platelets 100, bilirubin 1.6, AST 44. Electrolytes largely WNL. Renal function at baseline. CT?of chest large right pleural effusion and compressive atelectasis on the right lung, nonspecific ground-glass attenuation in the left upper lobe that may be an infectious/inflammatory process. Also showed cirrhosis, splenomegaly, ascites, and varices. Pt was treated with ondansetron, IVF, hydromorphone, and lorazepam. Pt will be admitted to the hospital for treatment and further management of acute hypoxic respiratory failure in the setting of large right pleural effusion with chest tube in place. 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 Other Mental health disorder Substance use disorder <NORBERTO Pineda - Last Filed: 07/28/22 16:16> Surgical History: Surgical History History of appendectomy History of bowel resection History of hernia repair <NORBERTO Pineda - Last Filed: 07/28/22 16:16> Social History: Social History Household Members: None Housing: Apartment Are you a primary resident care provider to a significant other at home: No Do you presently have visiting nurse or other home services: No Patient Tobacco Use Status: Current someday Tobacco user Tobacco use type: Cigarette Years Smoked: 17 years old e-Cigarette/Vaping Use: Never Used Advance Directives: No Advance Directives Information Provided: No service: No Current occupational status: employed Cognitive needs: No Hearing needs: No Vision needs: No <NORBERTO Pineda - Last Filed: 07/28/22 16:16> Meds Allergies/Adverse reactions: Allergies Allergy/AdvReac Type Severity Reaction Status Date / Time ciprofloxacin [Cipro] Allergy Unknown swelling Verified 05/10/22 08:13 of the throat , hives nitrofurantoin AdvReac Liver Verified 05/10/22 08:13 [From Macrobid] cirrhosis decompensation <NORBERTO Pineda - Last Filed: 07/28/22 16:16> Active Medications: Current Medications Pharmacy Consult (Consult Rx Perform Med Rec) 1 each MISCELLANE ONCE PRN PRN Reason: Consult order <NORBERTO Pineda - Last Filed: 07/28/22 16:16> Home medications: Home Medications Medication Instructions Recorded Confirmed Last Taken Type methadone 10 mg/mL oral concentrate 76 mg PO DAILY 05/04/21 06/07/22 04/13/22 History levothyroxine 50 mcg tablet 50 mcg PO DAILY@0600 07/28/22 07/28/22 07/28/22 History multivitamin 1 tab PO DAILY 07/28/22 07/28/22 07/27/22 History <NORBERTO Pineda - Last Filed: 07/28/22 16:16> Physical Exam Vital Signs and Narrative: Vital Signs: Last Vital Signs Temp 98.0 F 07/28/22 07:55 Pulse 88 07/28/22 11:23 Resp 16 07/28/22 11:23 BP 133/73 07/28/22 11:23 Pulse Ox 88 L 07/28/22 12:16 O2 Del Method Room Air 07/28/22 12:16 BMI result Body Mass Index 30.1 <NORBERTO Pineda - Last Filed: 07/28/22 16:16> General: Patient agitated and restless, throwing herself around bed, kicking and screaming. Physical exam limited due to patient being uncooperative Resp: Breathing nonlabored Neuro: Motor grossly intact bilaterally. Pt moving all extremities spontaenously Extremities: No edema <NORBERTO Pineda - Last Filed: 07/28/22 16:16> Results Labs CBC and Chem 7: 07/28/22 08:17 07/28/22 08:17 <NORBERTO Pineda - Last Filed: 07/28/22 16:16> Labs: Laboratory Results - last 24 hr 07/28/22 07/28/22 07/28/22 08:17 08:17 08:17 MCV 94.9 MCH 27.7 MCHC 29.2 L RDW 17.8 H Plt Count 100 L D MPV 10.6 Immature Gran % (Auto) 0.2 Neut % (Auto) 77.7 H Lymph % (Auto) 15.7 L [place] % (Auto) 5.7 Eos % (Auto) 0.5 Baso % (Auto) 0.2 Lymph # (Auto) 0.7 L [place] # (Auto) 0.3 Eos # (Auto) 0.0 Baso # (Auto) 0.0 Abs Immat Gran (auto) 0.01 Absolute Neuts (auto) 3.4 Absolute Nucleated RBC 0.000 Nucleated RBC % (auto) 0.0 Anion Gap 12 Estim Creat Clear Calc 90.9 Estimated GFR > 60 Random Glucose 159 H Calcium 8.7 Magnesium 1.8 Total Bilirubin 1.6 H AST 44 H ALT 22 Alkaline Phosphatase 102 B-Natriuretic Peptide Total Protein 7.7 Albumin 3.2 L COVID-19 ([facility]) Negative COVID-19 Clin Com See Note 07/28/22 08:17 MCV MCH MCHC RDW Plt Count MPV Immature Gran % (Auto) Neut % (Auto) Lymph % (Auto) [place] % (Auto) Eos % (Auto) Baso % (Auto) Lymph # (Auto) [place] # (Auto) Eos # (Auto) Baso # (Auto) Abs Immat Gran (auto) Absolute Neuts (auto) Absolute Nucleated RBC Nucleated RBC % (auto) Anion Gap Estim Creat Clear Calc Estimated GFR Random Glucose Calcium Magnesium Total Bilirubin AST ALT Alkaline Phosphatase B-Natriuretic Peptide 47 Total Protein Albumin COVID-19 ([facility]) COVID-19 Clin Com <NORBERTO Pineda - Last Filed: 07/28/22 16:16> Imaging Radiologist's Impressions: Impressions Chest X-Ray 07/28/22 09:41 IMPRESSION: Large right pleural effusion. Chest CT 07/28/22 10:40 IMPRESSION: Large right pleural effusion and compressive atelectasis of the right lung. Nonspecific groundglass attenuation areas in the left upper lobe. This may represent an infectious/inflammatory process. Moderate coronary artery calcification. Cirrhosis, splenomegaly, ascites and varices. Right pleural effusion is probably secondary to liver disease. Fleischner guidelines were followed. 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 Pt will be admitted to the hospital for treatment and further management of acute hypoxic respiratory failure in the setting of large right pleural effusion with chest tube in place. Acute hypoxic respiratory failure in the setting of large right pleural effusion CT of chest found large right pleural effusion and compressive atelectasis Pt with increasing SOB x 2 weeks, satting in the 80s on RA Likely secondary to cirrhosis Thoracic surgery was consulted, chest tube was placed and drained 2.5 L of serosanguineous fluid Patient placed on OxyMask, satting 94-96% Titrate supplemental O2 >92%, wean as tolerated Anagesiscs for pain management Follow cultures Agitation/restlessness Pt agitated after waking up from procedure, pt kicking, screaming, and throwing herself around on bed Pt with right-sided chest tube in place Patient received Ativan in the ED Ativan 1 mg q.6 for restlessness One-on-one sitter for now Pancytopenia Labs around baseline: WBC 4.4, H&H 7.6/260, platelets [address] Patel in Heme/Onc, received 5 Venofer treatments with last on 06/07/2022 Under etiology: Liver cirrhosis versus splenic sequestration versus underlying hematological disorder Is planning on getting a bone marrow biopsy Follow CBC, transfuse as necessary Gng-ugclblh-bpkbdephl diabetes Hold metformin Sliding scale insulin, diabetic diet Hx of IVDU continue methadone Full Code Attending:?Dr. Mancia DVT Prophylaxis: Lovenox Pt will require a hospitalization of at least two nights for treatment of?large right pleural effusion with chest tube in place. 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 Pt will be admitted to the hospital for treatment and further management of acute hypoxic respiratory failure in the setting of large right pleural effusion with chest tube in place. Acute hypoxic respiratory failure in the setting of large right pleural effusion CT of chest found large right pleural effusion and compressive atelectasis Pt with increasing SOB x 2 weeks, satting in the 80s on RA Likely secondary to cirrhosis Thoracic surgery was consulted, chest tube was placed and drained 2.5 L of serosanguineous fluid Patient placed on OxyMask, satting 94-96% Titrate supplemental O2 >92%, wean as tolerated Anagesiscs for pain management Follow cultures Agitation/restlessness Pt agitated after waking up from procedure, pt kicking, screaming, and throwing herself around on bed Pt with right-sided chest tube in place Patient received Ativan in the ED Ativan 1 mg q.6 for restlessness One-on-one sitter for now Pancytopenia Labs around baseline: WBC 4.4, H&H 7.6/260, platelets [address] Patel in Heme/Onc, received 5 Venofer treatments with last on 06/07/2022 Under etiology: Liver cirrhosis versus splenic sequestration versus underlying hematological disorder Is planning on getting a bone marrow biopsy Follow CBC, transfuse as necessary Hfg-hahihgq-yqyqyknyy diabetes Hold metformin Sliding scale insulin, diabetic diet Hx of IVDU continue methadone Full Code Attending:?Dr. Mancia DVT Prophylaxis: Lovenox Pt will require a hospitalization of at least two nights for treatment of?large right pleural effusion with chest tube in place. pt seen examined, upon reviewing the patient she has right sidest tube and is very confused and agitation, once is not able to converse with. She reported was fully alert but was given ativan and diluadid for chest tube placement subsequent vomitted with episode of O2 sat going down and has since been on NRB and with increasing concern that she's not able to protect her airway and therefore is been intubated for airway protection.. And will need to be in ICU and if no ICU bed here then will need to be transsfered to another hospital. She should have a head CT <Getachew Mancia MD - Last Filed: 07/28/22 16:35> Time Spent With Patient Time: Total time managing care of this patient today ____ minutes. <NORBERTO Pineda - Last Filed: 07/28/22 16:16> Quality Stroke Does the patient have a stroke diagnosis?: No <NORBERTO Pineda - Last Filed: 07/28/22 16:16> VTE Prior VTE?: No <NORBERTO Pineda - Last Filed: 07/28/22 16:16> VTE Risk Level:: Medical - moderate - high <NORBERTO Pineda - Last Filed: 07/28/22 16:16> VTE Device Contraindication: Treatment Not Indicated <NORBERTO Pineda - Last Filed: 07/28/22 16:16> VTE Drug Contraindication: N/A - Med Ordered <NORBERTO Pineda - Last Filed: 07/28/22 16:16>
--- NOTE | 2022-07-28 14:11 | HO.THORCONS ---
History of Present Illness Consult details Consult date: 07/28/22 Narrative: thoracic surgical consultation for evaluation and definitive treatment for complete whiteout of right thoracic cavity from pleural effusion. Chart was reviewed and patient evaluated. Patient has had progressively worsening shortness of breath over the last several days to weeks. Plethora of chronic medical issues. CT scan of chest demonstrates essentially whiteout of right hemithorax. 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 Other Mental health disorder Substance use disorder Surgical History Surgical History History of appendectomy History of bowel resection History of hernia repair Social History Social History Household Members: None Housing: Apartment Are you a primary managed care specialist to a significant other at home: No Do you presently have visiting nurse or other home services: No Alcohol intake: never Patient Tobacco Use Status: Current someday Tobacco user Tobacco use type: Cigarette Years Smoked: 17 years old e-Cigarette/Vaping Use: Never Used service: No Current occupational status: employed Cognitive needs: No Hearing needs: No Vision needs: No Meds Allergies Allergy/AdvReac Type Severity Reaction Status Date / Time ciprofloxacin [Cipro] Allergy Unknown swelling Verified 05/10/22 08:13 of the throat , hives nitrofurantoin AdvReac Liver Verified 05/10/22 08:13 [From Macrobid] cirrhosis decompensation Active Medications: Current Medications Pharmacy Consult (Consult Rx Perform Med Rec) 1 each MISCELLANE ONCE PRN PRN Reason: Consult order Home Medications Medication Instructions Recorded Confirmed Last Taken Type methadone 10 mg/mL oral concentrate 76 mg PO DAILY 05/04/21 06/07/22 04/13/22 History levothyroxine 50 mcg tablet 50 mcg PO DAILY@0600 07/28/22 07/28/22 07/28/22 History multivitamin 1 tab PO DAILY 07/28/22 07/28/22 07/27/22 History Physical Exam Vital Signs: Vital Signs: Last Vital Signs Temp 98.0 F 07/28/22 07:55 Pulse 88 07/28/22 11:23 Resp 16 07/28/22 11:23 BP 133/73 07/28/22 11:23 Pulse Ox 88 L 07/28/22 12:16 O2 Del Method Room Air 07/28/22 12:16 BMI result Body Mass Index 30.1 Const: Other: Extremely challenging patient. Very anxious, apprehensive, bordering confrontational. Chest: Other: No breath sounds right hemithorax. Left within normal limits GI: Other: abdomen corpulent, soft, benign Results Labs 07/28/22 08:17 07/28/22 08:17 Labs: Abnormal lab results 07/28/22 07/28/22 Range/Units 08:17 08:17 WBC 4.4 L (4.8-10.8) X10*3/uL RBC 2.74 L (4.20-5.50) X10*6/uL Hgb 7.6 L (12.0-16.0) g/dl Hct 26.0 L (37.0-47.0) % MCHC 29.2 L (31.0-35.0) g/dl RDW 17.8 H (11.0-16.0) % Plt Count 100 L D (160-400) X10*3/uL Neut % (Auto) 77.7 H (45-73) % Lymph % (Auto) 15.7 L (20-40) % Lymph # (Auto) 0.7 L (1.2-4.9) X10*3/uL Chloride 109 H (96-108) mmol/L Random Glucose 159 H (60-115) mg/dL Total Bilirubin 1.6 H (0.0-1.0) mg/dL AST 44 H (5-31) U/L Albumin 3.2 L (3.5-5.0) g/dL Short CBC 07/28/22 Range/Units 08:17 WBC 4.4 L (4.8-10.8) X10*3/uL Hgb 7.6 L (12.0-16.0) g/dl Hct 26.0 L (37.0-47.0) % Plt Count 100 L D (160-400) X10*3/uL BMP 07/28/22 08:17 Sodium 143 Potassium 4.1 Chloride 109 H Carbon Dioxide 26 BUN 14 Creatinine 0.72 Calcium 8.7 Liver Function 07/28/22 Range/Units 08:17 Total Bilirubin 1.6 H (0.0-1.0) mg/dL AST 44 H (5-31) U/L ALT 22 (0-31) U/L Alkaline Phosphatase 102 (39-117) U/L Albumin 3.2 L (3.5-5.0) g/dL All other labs normal. Assessment and Plan (1) Pleural effusion: Status: Acute (2) Restlessness and agitation: Status: Acute (3) Pleural effusion, right: Status: Acute Plan The risks, benefits, alternatives of tube thoracostomy placement for right pleural effusion were extensively reviewed with the patient and included but not limited to bleeding, infection, recurrence, numbness, pain, scarring, tube dislodgement and the patient wished to proceed. All questions were answered. After appropriate positioning the patient and IV analgesia and sedation, the patient's right chest was prepped and draped in usual sterile fashion. Approximately 4th intercostal space in the anterior axillary line,an incision was made and carried down through skin, subcutaneous tissue down to the intercostal space which was then entered with a Mariela clamp and a 28 [place] chest tube uneventfully advanced into the hemithorax. Sequentially, approximately 2.5 L of serosanguineous fluid was retrieved. Chest tube was secured in place using 3-0 silk sutures from the kit. Occlusive dressing that was then placed Patient tolerated procedure well. Postprocedure x-ray is pending. Fluid retrieved will be sent for cytology as well as culture. Time Spent With Patient Time: Total time managing care of this patient today ____ minutes. Procedures Date of Service Date of Service: 07/29/22
[2022-07-28] MEDS: Naloxone HCl Nasal 4 MG SPRAY NOSTRILALT (15:00)
[2022-07-28] MEDS: diphenhydrAMINE HCL 50 MG/ML VIAL IM (15:38)
[2022-07-28] MEDS: Haloperidol Lactate 5 MG/ML VIAL IM (15:39)
[2022-07-28] MEDS: Rocuronium Bromide 50 MG/5 ML VIAL IVPUSH (15:57)
[2022-07-28] MEDS: Etomidate 20 MG/10 ML VIAL IVPUSH (15:57)
--- NOTE | 2022-07-28 16:00 | PC.NURSE ---
Pt was given Ativan and Dilaudid for chest tube placement, after placement pt vomited with episode of O2 sat going down and was on NRB and with increasing concern that she's not able to protect her airway, therefore pt was been intubated for airway protection.
--- NOTE | 2022-07-28 16:04 | MHC.EDTECH ---
Addendum entered by Mana Tracy 07/28/22 19:10: 16:12 [facility] call and denied pt. 16:19 [facility] called and denied pt. 16:23 Awaiting call back from [facility] ([facility]) 17:30 [facility] called back and accepted pt 18:40 [facility] called back with room confirmation and nurse to nurse phone number 18:50 Booked ALS transfer, awaiting Derek arrival Original Note: 15:40 Carla requested calls out re: possible ICU transfer 15:45 [facility] called and declined case due to closure for medical transfers 15:48 [facility] was called and no bed space available. Shanice to call back. 15:58 Leadership informed to stop calls out to other facilities.
--- NOTE | 2022-07-28 16:18 | PC.NURSE ---
20mg Etomidate given at 1557, 50mg Rocuronium given at 1557. Intubated 23cm at the lip 7.5 tube at 1559
[2022-07-28] MEDS: propofoL 1,000 MG/100 ML VIAL 23.13 MG IVCONT ×2 (17:17→19:20)
--- NOTE | 2022-07-28 19:01 | PC.NURSE ---
Ceftriaxone held d/t incompatibility with propofol and unable to obtain another IV access
[2022-07-28 19:16] LABS: Lipase 37 U/L (8-78)
--- NOTE | 2022-07-28 19:27 | PC.NURSE ---
Monsivais catheter 16 maltese placed per MD powell
[2022-07-28 19:39] LABS: Appearance Urine Clear; Color Urine Yellow; Glucose Urine UA Negative (Negative); Leukocyte Esterase Urine Negative (Negative); Nitrite Urine Negative (Negative); PH 5.5 (5.0-9.0); Specific Gravity - Urine >= 1.030 (1.005-1.025); UMIC TRIGGER UACC YES; Urine Blood Negative (Negative); Urine Ketones Negative (Negative); Urine Protein 30 (1+) mg/dL (Neg-Trace)
[2022-07-28 19:42] LABS: MN% 25.4 %; PMN% 74.6 %; RBC Pleural Fluid 0.012 X10*3/uL; WBC Pleural Fluid 0.214 X10*3/uL
[2022-07-28 19:44] LABS: Bacteria Urine None Seen (None Seen); Hyaline Casts Urine 0-2 /LPF (0-2); RBC Urine 0-2 /HPF (0-2); Squamous Epithelial Cell Urine 0-2 /HPF (0-2); WBC Urine 0-5 /HPF (0-5)
--- NOTE | 2022-07-28 19:44 | PC.NURSE ---
Addendum entered by Kelly Morales RN 07/28/22 19:56: Pt is intubated at this time, satting well at 95%. Pt is sedated on propofol. Propofol and levophed are running at this time. EMS arrived to take the pt but due to BP and medications, [facility] is being called to bring pt to [place]. Original Note: I assumed care of the pt at 1900. I assisted VICTOR HUGO Hagan with Monsivais catheter insertion. Pt on propofol 50 mcg/kg. BP noted to be low, Proprofol lowered to 40 mcg/kg per protocol
[2022-07-28] MEDS: Norepinephrine Bitartrate/D5W 8 MG/250 ML PLAST..BAG 7.23 MG IV (19:53)
[2022-07-28 20:33] LABS: BF Shift QC OK YES; Lymphocytes Pleural Fluid 7 %; Monocytes Pleural Fluid 12 %; Neutrophils Pleural Fluid 76 %; Other Cells Plerual Fl 5 %
[2022-07-28 20:42] LABS: Amphetamine Screen Urine Not Detected (Not Detect); Barbiturates, Urine Not Detected (Not Detect); Benzodiazepines Screen Urine Not Detected (Not Detect); Cannabinoid Screen Urine Not Detected (Not Detect); Cocaine Screen Urine Not Detected (Not Detect); Fentanyl, urine Not Detected (Not Detect); Opiate Screen Urine POSITIVE (Not Detect); Phencyclidine Screen Urine Not Detected (Not Detect)
--- NOTE | 2022-07-28 21:13 | PC.NURSE ---
Nurse to nurse report given to Radha GAY at [facility]. Pt transitioned to EMS stretcher and equipment without complications. Pt secured to EMS stretcher and discharged for transport.
== END 2022-07-28 23:48 | disposition short-term general hospital (02) | DRG 186 ==
LOC: HO.ED 08:05 → HO.EDOVER 14:52
PROVIDERS: Physician Assistant Medical; Admitting Provider Student in an Organized Health Care Education/Training Program; Emergency Provider Internal Medicine; PCP Internal Medicine; Visit Provider Student in an Organized Health Care Education/Training Program
DX: J90 Pleural effusion, not elsewhere classified (principal); J96.01 Acute respiratory failure with hypoxia; F11.20 Opioid dependence, uncomplicated; D61.818 Other pancytopenia; E03.9 Hypothyroidism, unspecified; M06.9 Rheumatoid arthritis, unspecified; K74.69 Other cirrhosis of liver; F17.210 Nicotine dependence, cigarettes, uncomplicated; E11.9 Type 2 diabetes mellitus without complications; Z20.822 Contact with and (suspected) exposure to COVID-19; Z71.6 Tobacco abuse counseling; Z79.84 Long term (current) use of oral hypoglycemic drugs; Z79.890 Hormone replacement therapy; Z79.899 Other long term (current) drug therapy
CPT/HCPCS: 70450; 71045; 71046; 71250; 71260; 80053; 80307; 81001; 83690; 83735; 83880; 85025; 87070; 87073; 87205; 87635; 89051; 94002; 99285; J1170; J1200; J2060; Q9967

== ENCOUNTER → 2022-08-06 13:00 | Outpatient (BNVA) | payer OTHER, SELFPAY | PROVIDERS: PCP Internal Medicine; Visit Provider Internal Medicine | DX: R18.8 Other ascites (principal); K74.60 Unspecified cirrhosis of liver; K50.90 Crohn's disease, unspecified, without complications; J90 Pleural effusion, not elsewhere classified; D50.9 Iron deficiency anemia, unspecified | CPT/HCPCS: Q3014 ==

== ENCOUNTER 2022-08-09 10:11 | Emergency (ER) | payer OTHER, SELFPAY ==
--- NOTE | ~2022-08-09 | CT_ITS ---
EXAMINATION: CT ABDOMEN AND PELVIS WITHOUT CONTRAST CLINICAL INFORMATION: Bilateral upper quadrant tenderness with hepatorenal syndrome COMPARISON: 05/14/2021 TECHNIQUE: Multidetector volumetric imaging was performed from the superior aspect of the liver through the pubic symphysis. Sagittal and coronal reformatted images were obtained on the technologist's workstation. This CT examination was performed using dose optimization techniques as appropriate, variously including the following: *Automated exposure control *Adjustment of mA and/or kV according to patient size (this includes techniques or standardized protocols for targeted exams where dose is matched to indication/reason for exam; i.e. extremities or head) *Use of iterative reconstruction technique DLP: 569 mGy-cm FINDINGS: LUNG BASES: Left lung bases clear. The right lung shows a partially visualized effusion which is likely significant right lower lobe atelectasis LIVER, GALLBLADDER, AND BILIARY TREE: Once again lobulated liver consistent with cirrhosis. Lack of intravenous contrast limits evaluation for lesion. Mild fluid around the gallbladder may be reactive PANCREAS: Comparable to previous. SPLEEN: Spleen enlarged. ADRENAL GLANDS: Unremarkable. KIDNEYS AND URETERS: Kidneys appear nonhydronephrotic. BLADDER: Unremarkable. GASTROINTESTINAL TRACT: The bowel pattern appears nonobstructing. There is increased fluid in the mesentery and also increased fluid in the subcutaneous soft tissues consistent with third spacing Minimal ascites. ABDOMINAL WALL: Once again herniation of fat umbilicus region. Cannot exclude some herniation on the right lateral to the mesh. This does not contain bowel. LYMPH NODES: There is no bulky adenopathy here. VASCULAR: Once again varices are noted PELVIC VISCERA: Unremarkable. OSSEOUS STRUCTURES: Unremarkable. CT/CT abdomen pelvis wo IV con IMPRESSION: Partially imaged right-sided effusion with right lower lobe atelectasis. Once again cirrhotic appearing liver and splenomegaly with varices. There is some increasing subcutaneous fluid and mesenteric soft tissue stranding and fluid which may well be consistent with third spacing. Overall the bowel pattern is nonobstructing.
--- NOTE | ~2022-08-09 | XR_ITS ---
EXAMINATION: XR CHEST CLINICAL INFORMATION: Wheezing, diminished lung sounds COMPARISON: 07/28/2022. TECHNIQUE: 2 views of the chest were obtained. FINDINGS: There is a prominent right-sided consolidation and probable effusion right mid to base region, more pronounced since the previous evaluation. Pulmonary vascularity appears unchanged. The left lung appears to be clear. No new thoracic compression fractures. XR/XR chest 2V IMPRESSION: 1. Prominent right-sided consolidation and probable effusion, more pronounced since the previous evaluation. 2. Left lung clear.
[2022-08-09 10:15] VITALS: BP 134/75; PULSE 84; RESP 20; TEMP 36.8; O2SAT 95; BMI 30.9
--- NOTE | 2022-08-09 10:30 | ED_ITS ---
HPI - General Adult General Chief complaint: Upper Respiratory Symptoms Stated complaint: Fluid in lungs/SOB Time Seen by Provider: 08/09/22 10:30 Source: patient and RN notes reviewed Mode of arrival: ambulatory Limitations: no limitations History of Present Illness HPI narrative: Patient is a 51-year-old female with history of hepatic cirrhosis, ascites, portal HTN, splenomegaly, anemia, pancytopenia, HTN, DM, hypothyroid presenting to the ED from Dr. Patel's office for dyspnea, worse on exertion, lower extr emity edema, and decreased urine output over the past 24 hours. States she has only urinated approximately 100mLs in the last 18 hours. Also complains of abdominal distention and lower abdominal discomfort. Was discharged from the ICU on 08/01. States has been taking her 40mg PO Lasix daily as prescribed. Denies chest pain. Denies nausea, vomiting, diarrhea, or constipation. Denies bright red blood in stool or dark, tarry stool. Complains of pruritis to abdomen related to ascites, states has scabs to abdomen from scratching. MD complaint: dyspnea, lower extremity edema Onset (ago): day(s) Location: chest and abdomen Quality: dull Pain Consistency: constant Associated symptoms: malaise and shortness of breath Treatments prior to arrival: none Related Data Home Medications Medication Instructions Recorded Confirmed methadone 10 mg/mL oral concentrate 76 mg PO DAILY 05/04/21 08/09/22 levothyroxine 50 mcg tablet 50 mcg PO DAILY@0600 07/28/22 08/09/22 multivitamin 1 tab PO DAILY 07/28/22 08/09/22 furosemide 40 mg tablet 40 mg PO DAILY 08/06/22 08/09/22 Previous Rx's Medication Instructions Recorded omeprazole 40 mg capsule,delayed 40 mg PO BEDTIME 90 days #90 caps 05/05/22 release metoprolol succinate 50 mg 50 mg PO DAILY 90 days #90 tabs 06/02/22 tablet,extended release 24 hr metformin 500 mg tablet 500 mg PO BID 90 days #180 tabs 08/05/22 Allergies Allergy/AdvReac Type Severity Reaction Status Date / Time ciprofloxacin [Cipro] Allergy Unknown swelling Verified 08/09/22 10:22 of the throat , hives nitrofurantoin AdvReac Liver Verified 08/09/22 10:22 [From Macrobid] cirrhosis decompensation Review of Systems Review of Systems: As per HPI. 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 Other Mental health disorder Substance use disorder Social History Social History Household Members: None Housing: Apartment Are you a primary childcare provider to a significant other at home: No Do you presently have visiting nurse or other home services: No Alcohol intake: never Patient Tobacco Use Status: Current someday Tobacco user Tobacco use type: Cigarette Years Smoked: 17 years old e-Cigarette/Vaping Use: Never Used service: No Current occupational status: employed Cognitive needs: No Hearing needs: No Vision needs: No Physical Exam ED Vital Signs: Vital Signs - 24 hr 08/09/22 10:15 08/09/22 10:56 08/09/22 14:00 Temperature 98.3 F 98.4 F Pulse Rate 84 93 Respiratory Rate 20 77 H Blood Pressure 134/75 136/69 Pulse Oximetry 95 96 93 Oxygen Delivery Method Room Air Room Air Room Air BMI result Body Mass Index 30.9 Const General: cooperative and no acute distress Orientation/consciousness: oriented to person, oriented to place, oriented to time and patient oriented x3 Limitations: no limitations HENMT Head: Yes normocephalic and Yes atraumatic Ears: external ears normal General nose exam: Normal external nose present Face and sinus: Yes face symmetric Mouth: oropharynx normal and moist mucous membranes Throat: Yes uvula midline Eyes Pupils: Equal, round and reactive pupils present Neck Neck: Yes normal visual inspection and Yes supple Resp Effort & Inspection: normal respiratory effort and able to speak in complete sentences Auscultation: wheezes expiratory wheezes and diminished lung sounds bilateral (worse on right) throughout Cardio Rate: regular rate Rhythm: regular rhythm Heart sounds: S1 normal heart sound present and S2 normal heart sound present GI Inspection: Yes other (diffuse scabs without surrounding erythema or calor) Palpation (GI): Soft to palpation and Tenderness to palpation present (GI) in the LUQ and in the RUQ Auscultation: normoactive bowel sounds General: Yes no CVA tenderness Back/Spine/Pelvis Back: no CVA tenderness Skin General skin exam: elasticity normal and turgor normal Neuro General: oriented to person, oriented to place, oriented to time, patient oriented x3, moves all extremities, no focal motor deficits and CN's II-XI intact bilaterally Cranial nerves: Yes Equal, round and reactive pupils present Cognition (Neuro): normal cognition Extrem General: Yes full ROM and Yes no calf tenderness Right lower extremity: lower leg Details: pitting edema Details: 2+ Left lower extremity: lower leg Details: pitting edema Details: 2+ Psych Mental Status: mental status grossly normal Affect: normal affect Thought process: Normal thought process present Course Course Course Narrative: 12:09 CXR reveals right sided consolidation and probable effusion, more pronounced than previous evaluation. Nursing reporting difficulty obtaining labs, will likely require U/S guided IV. Bladder scan shows OmLs. 13:34 Critical lactic of 3.0 received from lab, likely from metformin, do not suspect sepsis. 14:37 CT abd/pelvis shows increasing subcutaneous fluid consistent with third spacing. Do not suspect SBP, patient is afebrile, no leukocytosis. [place] text to Dr. Welsh for admission. Dr. Welsh feels patient does not meet admission criteria. Also spoke with Dr. Burdick via telephone who feels that if patient is not urinating it is likely due to noncompliance with furosemide as her creatinine is normal and other labs are at baseline. 15:[address] Oden as well as Dr. Patel who both feel patient is stable for discharge home. Dr. Patel recommends patient to follow up with her PCP as well as gastroenterology . All results discussed with patient and all questions answered. Return precautions discussed at bedside. Patient verbalized understanding of and agreement with plan. Medical Decision Making Medical Decision Making MDM Narrative: Patient is a 51-year-old female with history of hepatic cirrhosis, ascites, por jesu HTN, splenomegaly, anemia, pancytopenia, HTN, DM, hypothyroid presenting to the ED from Dr. Patel's office for dyspnea, worse on exertion, lower extremity edema, and decreased urine output over the past 24 hours. On exam patient is awake, A+Ox3, VS WNL, able to speak easily in full sentences, LS diminished throughout, R>L, mild expiratory wheezing, abdomen is mildly distended, soft, tender LUQ and RUQ, no CVA tenderness, 2+ pitting edema bilateral lower extremities. Dr. Patel concerned for hepatorenal syndrome. Differential also includes worsening pleural effusion, glomerulonephritis, vasculitis. Do not suspect sepsis at this time. Plan: EKG, labs, UA, CXR, CT abdomen/pelvis Please refer to course for remaining clinical decision making. Differential Diagnosis Differential Diagnoses: The differential diagnosis associated with the presentation includes As above. Admission/Observation Consideration of admission/observation: Escalation of care including admission/observation considered Consult Healthcare Provider Management of the patient was discussed with: Hospitalist (Dr. Welsh, Dr. Burdick) and [place] Engineer Dr. Patel, Dr. Oden Lab Data MDM Lab Attestation statement: I reviewed the patient's lab results. 08/09/22 12:41 08/09/22 12:41 Labs: Lab Results 08/09/22 08/09/22 08/09/22 Range/Units 11:00 12:41 12:41 WBC 4.5 L (4.8-10.8) X10*3/uL RBC 3.12 L (4.20-5.50) X10*6/uL Hgb 9.1 L (12.0-16.0) g/dl Hct 30.7 L (37.0-47.0) % MCV 98.4 H (80.0-98.0) fL MCH 29.2 (27.0-33.0) pg MCHC 29.6 L (31.0-35.0) g/dl RDW 19.2 H (11.0-16.0) % Plt Count 66 L D (160-400) X10*3/uL MPV 12.4 H (9.4-12.3) fL Immature Gran % (Auto) 0.2 (0.0-0.4) % Neut % (Auto) 72.0 (45-73) % Lymph % (Auto) 18.3 L (20-40) % [place] % (Auto) 7.3 (2-11) % Eos % (Auto) 1.5 (0-4) % Baso % (Auto) 0.7 (0-2) % Lymph # (Auto) 0.8 L (1.2-4.9) X10*3/uL [place] # (Auto) 0.3 (0.1-1.2) X10*3/uL Eos # (Auto) 0.1 (0.0-0.4) X10*3/uL Baso # (Auto) 0.0 (0.0-0.2) X10*3/uL Abs Immat Gran (auto) 0.01 (0.00-0.03) X10*3/uL Absolute Neuts (auto) 3.3 (2.0-8.3) x10*3/uL Absolute Nucleated RBC 0.000 (0.0-0.012) X10*3/uL Nucleated RBC % (auto) 0.0 (0.0-0.2) /100WBC PT (10.0-13.1) SEC INR (0.9-1.1) Sodium 140 (135-145) mmol/L Potassium 4.3 (3.3-5.1) mmol/L Chloride 108 (96-108) mmol/L Carbon Dioxide 24 (22-29) mmol/L Anion Gap 12 (12-20) BUN 15 (9-16) mg/dL Creatinine 0.67 (0.5-1.4) mg/dL Estim Creat Clear Calc 102.7 Estimated GFR > 60 Random Glucose 149 H (60-115) mg/dL Lactic Acid (0.5-2.0) mmol/L Lactic Acid F/U @ 2Hr (0.5-2.0) mmol/L Calcium 8.6 (8.4-10.2) mg/dL Total Bilirubin 1.1 H (0.0-1.0) mg/dL Direct Bilirubin 0.4 (0.0-0.5) mg/dL AST 60 H (5-31) U/L ALT 39 H (0-31) U/L Alkaline Phosphatase 141 H (39-117) U/L Ammonia (13-55) umol/L Troponin I High Sens (<3.5-17.0) ng/L B-Natriuretic Peptide (<100) pg/mL Total Protein 6.2 L (6.5-8.0) g/dL Albumin 2.7 L (3.5-5.0) g/dL Urine Color Dark Yellow Urine Appearance Clear Urine pH 6.0 (5.0-9.0) Ur Specific Allison >= 1.030 H (1.005-1.025) Urine Protein 30 (1+) H (Neg-Trace) mg/dL Urine Glucose (UA) Negative (Negative) mg/dL Urine Ketones Trace (Negative) mg/dL Urine Blood Negative (Negative) Urine Nitrite Negative (Negative) Ur Leukocyte Esterase Trace H (Negative) Urine RBC 3-5 H (0-2) /HPF Urine WBC 0-5 (0-5) /HPF Ur Squamous Epith Cells 0-2 (0-2) /HPF Urine Bacteria None Seen (None Seen) Hyaline Casts 0-2 (0-2) /LPF 08/09/22 08/09/22 08/09/22 Range/Units 12:41 12:41 12:41 WBC (4.8-10.8) X10*3/uL RBC (4.20-5.50) X10*6/uL Hgb (12.0-16.0) g/dl Hct (37.0-47.0) % MCV (80.0-98.0) fL MCH (27.0-33.0) pg MCHC (31.0-35.0) g/dl RDW (11.0-16.0) % Plt Count (160-400) X10*3/uL MPV (9.4-12.3) fL Immature Gran % (Auto) (0.0-0.4) % Neut % (Auto) (45-73) % Lymph % (Auto) (20-40) % [place] % (Auto) (2-11) % Eos % (Auto) (0-4) % Baso % (Auto) (0-2) % Lymph # (Auto) (1.2-4.9) X10*3/uL [place] # (Auto) (0.1-1.2) X10*3/uL Eos # (Auto) (0.0-0.4) X10*3/uL Baso # (Auto) (0.0-0.2) X10*3/uL Abs Immat Gran (auto) (0.00-0.03) X10*3/uL Absolute Neuts (auto) (2.0-8.3) x10*3/uL Absolute Nucleated RBC (0.0-0.012) X10*3/uL Nucleated RBC % (auto) (0.0-0.2) /100WBC PT (10.0-13.1) SEC INR (0.9-1.1) Sodium (135-145) mmol/L Potassium (3.3-5.1) mmol/L Chloride (96-108) mmol/L Carbon Dioxide (22-29) mmol/L Anion Gap (12-20) BUN (9-16) mg/dL Creatinine (0.5-1.4) mg/dL Estim Creat Clear Calc Estimated GFR Random Glucose (60-115) mg/dL Lactic Acid 3.0 H* (0.5-2.0) mmol/L Lactic Acid F/U @ 2Hr (0.5-2.0) mmol/L Calcium (8.4-10.2) mg/dL Total Bilirubin (0.0-1.0) mg/dL Direct Bilirubin (0.0-0.5) mg/dL AST (5-31) U/L ALT (0-31) U/L Alkaline Phosphatase (39-117) U/L Ammonia (13-55) umol/L Troponin I High Sens < 2.7 (<3.5-17.0) ng/L B-Natriuretic Peptide 108 H (<100) pg/mL Total Protein (6.5-8.0) g/dL Albumin (3.5-5.0) g/dL Urine Color Urine Appearance Urine pH (5.0-9.0) Ur Specific Allison (1.005-1.025) Urine Protein (Neg-Trace) mg/dL Urine Glucose (UA) (Negative) mg/dL Urine Ketones (Negative) mg/dL Urine Blood (Negative) Urine Nitrite (Negative) Ur Leukocyte Esterase (Negative) Urine RBC (0-2) /HPF Urine WBC (0-5) /HPF Ur Squamous Epith Cells (0-2) /HPF Urine Bacteria (None Seen) Hyaline Casts (0-2) /LPF 08/09/22 08/09/22 08/09/22 Range/Units 12:41 13:35 15:15 WBC (4.8-10.8) X10*3/uL RBC (4.20-5.50) X10*6/uL Hgb (12.0-16.0) g/dl Hct (37.0-47.0) % MCV (80.0-98.0) fL MCH (27.0-33.0) pg MCHC (31.0-35.0) g/dl RDW (11.0-16.0) % Plt Count (160-400) X10*3/uL MPV (9.4-12.3) fL Immature Gran % (Auto) (0.0-0.4) % Neut % (Auto) (45-73) % Lymph % (Auto) (20-40) % [place] % (Auto) (2-11) % Eos % (Auto) (0-4) % Baso % (Auto) (0-2) % Lymph # (Auto) (1.2-4.9) X10*3/uL [place] # (Auto) (0.1-1.2) X10*3/uL Eos # (Auto) (0.0-0.4) X10*3/uL Baso # (Auto) (0.0-0.2) X10*3/uL Abs Immat Gran (auto) (0.00-0.03) X10*3/uL Absolute Neuts (auto) (2.0-8.3) x10*3/uL Absolute Nucleated RBC (0.0-0.012) X10*3/uL Nucleated RBC % (auto) (0.0-0.2) /100WBC PT 26.7 H (10.0-13.1) SEC INR 2.2 H (0.9-1.1) Sodium (135-145) mmol/L Potassium (3.3-5.1) mmol/L Chloride (96-108) mmol/L Carbon Dioxide (22-29) mmol/L Anion Gap (12-20) BUN (9-16) mg/dL Creatinine (0.5-1.4) mg/dL Estim Creat Clear Calc Estimated GFR Random Glucose (60-115) mg/dL Lactic Acid (0.5-2.0) mmol/L Lactic Acid F/U @ 2Hr 1.8 (0.5-2.0) mmol/L Calcium (8.4-10.2) mg/dL Total Bilirubin (0.0-1.0) mg/dL Direct Bilirubin (0.0-0.5) mg/dL AST (5-31) U/L ALT (0-31) U/L Alkaline Phosphatase (39-117) U/L Ammonia 31 (13-55) umol/L Troponin I High Sens (<3.5-17.0) ng/L B-Natriuretic Peptide (<100) pg/mL Total Protein (6.5-8.0) g/dL Albumin (3.5-5.0) g/dL Urine Color Urine Appearance Urine pH (5.0-9.0) Ur Specific [place] (1.005-1.025) Urine Protein (Neg-Trace) mg/dL Urine Glucose (UA) (Negative) mg/dL Urine Ketones (Negative) mg/dL Urine Blood (Negative) Urine Nitrite (Negative) Ur Leukocyte Esterase (Negative) Urine RBC (0-2) /HPF Urine WBC (0-5) /HPF Ur Squamous Epith Cells (0-2) /HPF Urine Bacteria (None Seen) Hyaline Casts (0-2) /LPF Independent Interpretation I performed an independent interpretation of an: Plain X-Ray and CT Scan Interpretation: I independently reviewed the x-ray and CT and agree with the radiologist's interpretation. Radiology Impression Discussion of test interpretation with radiology: I have reviewed the radiologist's reading. Radiologist Impression: XR/XR chest 2V IMPRESSION: 1.? Prominent right-sided consolidation and probable effusion, more pronounced since the previous evaluation. 2.? Left lung clear. ? CT/CT abdomen pelvis wo IV con IMPRESSION: Partially imaged right-sided effusion with right lower lobe atelectasis. ? Once again cirrhotic appearing liver and splenomegaly with varices. ? There is some increasing subcutaneous fluid and mesenteric soft tissue stranding and fluid which may well be consistent with third spacing.? ? ? Overall the bowel pattern is nonobstructing. External Record Review External record reviewed: Inpatient record, Office record and Outpatient record Chronic Conditions Patient?s care impacted by: Other (cirrhosis) Discharge Plan Discharge Clinical Impression: Recurrent right pleural effusion, Abdominal ascites Patient Disposition: Home, Self-Care Instructions: Ascites (ED), Pleural Effusion (ED) Additional Instructions: You were evaluated in the emergency department today for decreased urinary output. You evaluation did not show evidence of an acute kidney injury. Your chest x-ray does show a pleural effusion on the right side. 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 Please continue to take your furosemide as prescribed. Return to the emergency department for worsening shortness of breath, difficulty breathing, fever 100.4? F or greater, worsening abdominal pain, inability to urinate, persistent vomiting, or any other concerning symptoms. Prescriptions: No Action metoprolol succinate 50 mg tablet extended release 24 hr 50 mg PO DAILY 90 Days Qty: 90 0RF metformin 500 mg tablet 500 mg PO BID 90 Days Qty: 180 0RF methadone 10 mg/mL Concentrate 76 mg PO DAILY multivitamin Tablet 1 tab PO DAILY levothyroxine 50 mcg tablet 50 mcg PO DAILY@0600 omeprazole 40 mg capsule,delayed release(DR/EC) 40 mg PO BEDTIME 90 Days Qty: 90 0RF furosemide 40 mg tablet 40 mg PO DAILY Referrals: [facility] [place] [facility] [Provider Group]
--- NOTE | 2022-08-09 10:33 | ECG_ITS ---
Test Reason : SOB Blood Pressure : / mmHG Vent. Rate : 076 BPM Atrial Rate : 076 BPM P-R Int : 150 ms QRS Dur : 112 ms QT Int : 432 ms P-R-T Axes : 033 -06 -22 degrees QTc Int : 486 ms Normal sinus rhythm Incomplete right bundle branch block T wave abnormality, consider anterior ischemia Prolonged QT Abnormal ECG When compared with ECG of 13-APR-2022 16:37, No significant changes seen Referred By: Raven Allen Electronically Signed By:DIANA GALLARDO
[2022-08-09 10:56] VITALS: O2SAT 96
[2022-08-09 11:10] LABS: Appearance Urine Clear; Color Urine Dark Yellow; Glucose Urine UA Negative (Negative); Leukocyte Esterase Urine Trace (Negative); Nitrite Urine Negative (Negative); Specific Gravity - Urine >= 1.030 (1.005-1.025); UMIC TRIGGER UACC YES; Urine Blood Negative (Negative); Urine Ketones Trace mg/dL (Negative); Urine Protein 30 (1+) mg/dL (Neg-Trace)
[2022-08-09 11:13] LABS: Bacteria Urine None Seen (None Seen); Hyaline Casts Urine 0-2 /LPF (0-2); Squamous Epithelial Cell Urine 0-2 /HPF (0-2); WBC Urine 0-5 /HPF (0-5)
--- NOTE | 2022-08-09 11:33 | PC.NURSE ---
pt aox4, coming to ED after visiting Dr. Patel dith SOB, low extrem edema and abdomen pain post discharge from ICU 2 weeks ago. EKG done, urine sent to lab. awaiting lab draw - pt very difficult stick.
[2022-08-09 12:50] LABS: MANUAL DIFF FLAG NO
[2022-08-09 12:53] LABS: Basophils Percent Auto 0.7 % (0-2); Eosinophils Absolute Auto 0.1 X10*3/uL (0.0-0.4); Eosinophils Percent Auto 1.5 % (0-4); Hematocrit 30.7 % (37.0-47.0); Hemoglobin 9.1 g/dl (12.0-16.0); Imm Gran Abs Auto 0.01 X10*3/uL (0.00-0.03); Imm Gran Pct Auto 0.2 % (0.0-0.4); Lymphocytes Absolute Auto 0.8 X10*3/uL (1.2-4.9); Lymphocytes Percent Auto 18.3 % (20-40); Mean Corpuscular HGB Conc 29.6 g/dl (31.0-35.0); Mean Corpuscular Hemoglobin 29.2 pg (27.0-33.0); Mean Corpuscular Volume 98.4 fL (80.0-98.0); Mean Platelet Volume 12.4 fL (9.4-12.3); Monocytes Absolute Auto 0.3 X10*3/uL (0.1-1.2); Monocytes Percent Auto 7.3 % (2-11); Neutrophils Absolute Auto 3.3 x10*3/uL (2.0-8.3); Red Blood Count 3.12 X10*6/uL (4.20-5.50); Red Cell Distribution Width 19.2 % (11.0-16.0); White Blood Count 4.5 X10*3/uL (4.8-10.8)
[2022-08-09 12:54] LABS: Platelet Count 66 X10*3/uL (160-400)
[2022-08-09 12:57] LABS: INTERNATIONAL NORM RATIO 2.2 (0.9-1.1); Prothrombin Time 26.7 SEC (10.0-13.1)
[2022-08-09 13:15] LABS: B Type Natriuretic Peptide 108 pg/mL (<100)
--- NOTE | 2022-08-09 13:17 | PC.NURSE ---
pt very difficult stick, ultrasound IV insertion pending.
[2022-08-09 13:29] LABS: Alanine Aminotransferase 39 U/L (0-31); Albumin Level 2.7 g/dL (3.5-5.0); Alkaline Phosphatase 141 U/L (39-117); Anion Gap 12 (12-20); Aspartate Amino Transferase 60 U/L (5-31); Bilirubin Direct 0.4 mg/dL (0.0-0.5); Bilirubin Total 1.1 mg/dL (0.0-1.0); Blood Urea Nitrogen 15 mg/dL (9-16); Calcium 8.6 mg/dL (8.4-10.2); Carbon Dioxide 24 mmol/L (22-29); Chloride 108 mmol/L (96-108); Creatinine Clr Calc Pharmacy 102.7; Estimated Glomerular Filt Rate > 60; Glucose Random 149 mg/dL (60-115); Potassium 4.3 mmol/L (3.3-5.1); Sodium 140 mmol/L (135-145); Total Protein 6.2 g/dL (6.5-8.0)
[2022-08-09 13:30] LABS: Troponin-I High Sensitivity < 2.7 ng/L (<3.5-17.0)
[2022-08-09 14:00] VITALS: BP 136/69; PULSE 93; RESP 77; TEMP 36.9; O2SAT 93
[2022-08-09 14:21] LABS: Ammonia 31 umol/L (13-55)
[2022-08-09 14:49] LABS: Reflex Lactate? Lactic Acid Added
--- NOTE | 2022-08-09 15:20 | PM.IMHP ---
History of Present Illness Date of Service: 08/09/22 Attending physician on admission: Matt Burdick Pt is a 51-year-old female with a PMH significant for?pancytopenia, rheumatoid arthritis, [id number] diabetes type 2, hypothyroidism, liver cirrhosis secondary to hepatitis-C, portal HTN, and hx of IVDU on methadone who presents to the ED with?from Dr. Patel's office In the ED labs were significant for CXR showed CT? 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 Other Mental health disorder Substance use disorder Surgical History History of appendectomy History of bowel resection History of hernia repair Social History Household Members: None Housing: Apartment Are you a primary district manager primary care sales to a significant other at home: No Do you presently have visiting nurse or other home services: No Alcohol intake: never Patient Tobacco Use Status: Current someday Tobacco user Tobacco use type: Cigarette Years Smoked: 17 years old e-Cigarette/Vaping Use: Never Used service: No Current occupational status: employed Cognitive needs: No Hearing needs: No Vision needs: No Meds Allergies Allergy/AdvReac Type Severity Reaction Status Date / Time ciprofloxacin [Cipro] Allergy Unknown swelling Verified 08/09/22 10:22 of the throat , hives nitrofurantoin AdvReac Liver Verified 08/09/22 10:22 [From Macrobid] cirrhosis decompensation Home Medications Medication Instructions Recorded Confirmed Last Taken Type methadone 10 mg/mL oral concentrate 76 mg PO DAILY 05/04/21 08/09/22 04/13/22 History levothyroxine 50 mcg tablet 50 mcg PO DAILY@0600 07/28/22 08/09/22 07/28/22 History multivitamin 1 tab PO DAILY 07/28/22 08/09/22 07/27/22 History furosemide 40 mg tablet 40 mg PO DAILY 08/06/22 08/09/22 Unknown History Physical Exam Vital Signs and Narrative: Vital Signs: Last Vital Signs Temp 98.4 F 08/09/22 14:00 Pulse 93 08/09/22 14:00 Resp 77 H 08/09/22 14:00 BP 136/69 08/09/22 14:00 Pulse Ox 93 08/09/22 14:00 O2 Del Method Room Air 08/09/22 14:00 BMI result Body Mass Index 30.9 Results Labs 08/09/22 12:41 08/09/22 12:41 Labs: Laboratory Results - last 24 hr 08/09/22 08/09/22 08/09/22 11:00 12:41 12:41 MCV 98.4 H MCH 29.2 MCHC 29.6 L RDW 19.2 H Plt Count 66 L D MPV 12.4 H Immature Gran % (Auto) 0.2 Neut % (Auto) 72.0 Lymph % (Auto) 18.3 L [place] % (Auto) 7.3 Eos % (Auto) 1.5 Baso % (Auto) 0.7 Lymph # (Auto) 0.8 L [place] # (Auto) 0.3 Eos # (Auto) 0.1 Baso # (Auto) 0.0 Abs Immat Gran (auto) 0.01 Absolute Neuts (auto) 3.3 Absolute Nucleated RBC 0.000 Nucleated RBC % (auto) 0.0 PT INR Anion Gap 12 Estim Creat Clear Calc 102.7 Estimated GFR > 60 Random Glucose 149 H Lactic Acid Calcium 8.6 Total Bilirubin 1.1 H Direct Bilirubin 0.4 AST 60 H ALT 39 H Alkaline Phosphatase 141 H Ammonia Troponin I High Sens B-Natriuretic Peptide Total Protein 6.2 L Albumin 2.7 L Urine Color Dark Yellow Urine Appearance Clear Urine pH 6.0 Ur Specific [place] >= 1.030 H Urine Protein 30 (1+) H Urine Glucose (UA) Negative Urine Ketones Trace Urine Blood Negative Urine Nitrite Negative Ur Leukocyte Esterase Trace H Urine RBC 3-5 H Urine WBC 0-5 Ur Squamous Epith Cells 0-2 Urine Bacteria None Seen Hyaline Casts 0-2 08/09/22 08/09/22 08/09/22 12:41 12:41 12:41 MCV MCH MCHC RDW Plt Count MPV Immature Gran % (Auto) Neut % (Auto) Lymph % (Auto) [place] % (Auto) Eos % (Auto) Baso % (Auto) Lymph # (Auto) [place] # (Auto) Eos # (Auto) Baso # (Auto) Abs Immat Gran (auto) Absolute Neuts (auto) Absolute Nucleated RBC Nucleated RBC % (auto) PT INR Anion Gap Estim Creat Clear Calc Estimated GFR Random Glucose Lactic Acid 3.0 H* Calcium Total Bilirubin Direct Bilirubin AST ALT Alkaline Phosphatase Ammonia Troponin I High Sens < 2.7 B-Natriuretic Peptide 108 H Total Protein Albumin Urine Color Urine Appearance Urine pH Ur Specific [place] Urine Protein Urine Glucose (UA) Urine Ketones Urine Blood Urine Nitrite Ur Leukocyte Esterase Urine RBC Urine WBC Ur Squamous Epith Cells Urine Bacteria Hyaline Casts 08/09/22 08/09/22 12:41 13:35 MCV MCH MCHC RDW Plt Count MPV Immature Gran % (Auto) Neut % (Auto) Lymph % (Auto) [place] % (Auto) Eos % (Auto) Baso % (Auto) Lymph # (Auto) [place] # (Auto) Eos # (Auto) Baso # (Auto) Abs Immat Gran (auto) Absolute Neuts (auto) Absolute Nucleated RBC Nucleated RBC % (auto) PT 26.7 H INR 2.2 H Anion Gap Estim Creat Clear Calc Estimated GFR Random Glucose Lactic Acid Calcium Total Bilirubin Direct Bilirubin AST ALT Alkaline Phosphatase Ammonia 31 Troponin I High Sens B-Natriuretic Peptide Total Protein Albumin Urine Color Urine Appearance Urine pH Ur Specific [place] Urine Protein Urine Glucose (UA) Urine Ketones Urine Blood Urine Nitrite Ur Leukocyte Esterase Urine RBC Urine WBC Ur Squamous Epith Cells Urine Bacteria Hyaline Casts Imaging Radiologist's Impressions: Impressions Chest X-Ray 08/09/22 11:03 IMPRESSION: 1. Prominent right-sided consolidation and probable effusion, more pronounced since the previous evaluation. 2. Left lung clear. Abdomen/Pelvis CT 08/09/22 12:15 IMPRESSION: Partially imaged right-sided effusion with right lower lobe atelectasis. Once again cirrhotic appearing liver and splenomegaly with varices. There is some increasing subcutaneous fluid and mesenteric soft tissue stranding and fluid which may well be consistent with third spacing. Overall the bowel pattern is nonobstructing. Assessment and Plan Time Spent With Patient Time: Total time managing care of this patient today ____ minutes.
[2022-08-09 15:33] LABS: ~Lactic Acid-LAB USE ONLY 1.8 mmol/L (0.5-2.0)
[2022-08-09 16:17] VITALS: BP 135/75; PULSE 78; RESP 17; O2SAT 98
== END 2022-08-09 16:18 | disposition home or self-care (01) ==
PROVIDERS: Registered Nurse Emergency; Emergency Provider Emergency Medicine; PCP Internal Medicine
DX: J90 Pleural effusion, not elsewhere classified (principal); R18.8 Other ascites; R06.02 Shortness of breath; E11.9 Type 2 diabetes mellitus without complications; I10 Essential (primary) hypertension; E78.5 Hyperlipidemia, unspecified; D50.9 Iron deficiency anemia, unspecified; K50.90 Crohn's disease, unspecified, without complications; K74.60 Unspecified cirrhosis of liver; F17.210 Nicotine dependence, cigarettes, uncomplicated; Z79.84 Long term (current) use of oral hypoglycemic drugs
CPT/HCPCS: 36415; 51798; 71046; 74176; 80053; 81001; 82140; 82248; 83605; 83880; 84484; 85025; 85610; 87040; 93005; 99284; 99285

== ENCOUNTER → 2022-08-18 08:58 | Outpatient (BNVA) | payer OTHER, SELFPAY | PROVIDERS: PCP Internal Medicine; Visit Provider Internal Medicine | DX: K74.60 Unspecified cirrhosis of liver (principal); R18.8 Other ascites; J90 Pleural effusion, not elsewhere classified; K50.90 Crohn's disease, unspecified, without complications; D50.9 Iron deficiency anemia, unspecified; J94.8 Other specified pleural conditions | CPT/HCPCS: 99212 ==

== ENCOUNTER 2022-08-24 09:53 | Outpatient (AMB) | payer OTHER, SELFPAY ==
[2022-08-24 09:57] VITALS: BP 122/58; PULSE 72; O2SAT 94; BMI 30.3
--- NOTE | 2022-08-24 09:57 | MHC.OFFVIS ---
Intake Vital Signs 08/24/22 09:57 Height 5 ft 4 in Weight 176 lb 5.917 oz BMI 30.3 BP 122/58 L Blood Pressure Location Lt brachial Position Sitting Pulse 72 Pulse Source Pulse Oximeter Pulse Oximetry (%) 94 Oxygen Delivery Method Room Air Intake Visit Reasons: PE Allergies ciprofloxacin [Cipro] Allergy (Unknown, Verified 08/24/22 09:59) swelling of the throat , hives nitrofurantoin [From Macrobid] Adverse Reaction (Verified 08/24/22 09:59) Liver cirrhosis decompensation HPI PE HPI Details Beata is a pleasant 51 year old, former smoker 25 pack year history, quit 10 years ago with underlying history of Hepatitis C with liver cirrhosis complicated by pleural effusion and ascites, followed by GI. She was admitted on 07/28/22 for acute onset dyspnea on minimal exertion and found to have large pleural effusion secondary to cirrhosis, sent for thoracentesis and 2.5 L was drained then transferred to [facility]. She notes this was the first episode and denies any respiratory concerns prior to this admission. Since her discharge on 08/01/22, she reports significant improvements in her shortness of breath, but does not feel as though she is back to baseline. She reports hearing crackling after exerting herself. She denies any personal or family history of lung conditions. She was recently seen by GI, Dr. Garcia, who starting her on a regimen of lasix 60 mg combined with spironolactone 150 mg and discussed possible TIPS procedure. 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 Other Mental health disorder Substance use disorder Social History Household Members: None Housing: Apartment Are you a primary rn patient care to a significant other at home: No Do you presently have visiting nurse or other home services: No Alcohol intake: never Patient Tobacco Use Status: Current someday Tobacco user Tobacco use type: Cigarette Years Smoked: 17 years old e-Cigarette/Vaping Use: Never Used service: No Current occupational status: employed Cognitive needs: No Hearing needs: No Vision needs: No Review of Systems Const Denies chills, Denies excessive sweating, Denies fever(s), Denies headache(s) and Denies night sweats Eyes Denies dry eyes and Denies irritation ENT Reports Normal hearing present, Denies headache(s), Denies nasal congestion, Denies nasal discharge, Denies post nasal drip and Denies sore throat Card Denies chest pain, Denies chest pain at rest, Denies chest pain with activity, Denies leg edema, Denies orthopnea and Denies paroxysmal nocturnal dyspnea Resp Denies chest congestion, Denies cough, Denies excessive phlegm production, Denies pain on inspiration, Denies pain with cough and Denies stridor Musc Denies myalgias Neuro Reports Normal hearing present and Denies headache(s) Endo Denies excessive sweating Riley/Lymph Denies lymphadenopathy Aller/Immun Denies seasonal rhinorrhea Physical Exam Vital Signs: Last Vital Signs Pulse 72 08/24/22 09:57 BP 122/58 L 08/24/22 09:57 Pulse Ox 94 08/24/22 09:57 Oxygen Delivery Method Room Air 08/24/22 09:57 BMI result Body Mass Index 30.3 Const General: cooperative, healthy appearing, comfortable, no acute distress, well developed and alert Orientation/consciousness: patient oriented x3 Limitations: no limitations HEENT Head: Yes normal to inspection, Yes normocephalic and Yes atraumatic Ears: hearing grossly normal bilaterally and external ears normal Eyes General: appearance normal, both eyes and all related structures Eyelids: Yes eyelids normal Sclerae: sclerae normal EOM: EOMs intact bilaterally Neck Neck: Yes normal visual inspection and Yes no lymphadenopathy Lymphatic: no lymphadenopathy noted Chest Chest palpation & inspection: normal inspection of the chest Resp Other: diminished sounds on the mid to lower right, scattered expiratory wheezing throughout Effort & Inspection: normal respiratory effort, able to speak in complete sentences, no audible wheezes, no cough, no stridor, not tachypneic, no tripod positioning and no use of accessory muscles Cardio Jugular venous distension: no JVD Rate: regular rate Rhythm: regular rhythm Skin Other: warm, dry General skin exam: no rashes or lesions noted Neuro General: patient oriented x3 Cranial nerves: Yes Normal hearing present Cognition (Neuro): normal cognition Gait exam (Neuro): Normal gait present Extrem General: Yes normal to inspection, Yes capillary refill normal, Yes no clubbing, cyanosis or edema and Yes no pedal edema Psych Appearance: grossly normal and well kempt Speech and movement: Normal speech and movement present and Clear speech present Affect: normal affect Attitude: cooperative Thought process: Normal thought process present Thought content: Normal thought content present Insight: Good insight present (Psych) Judgement: Good judgement present (Psych) Results Reviewed Results Reviewed: [address] [address] [address] Scan Report Signed Patient: Beata Carrillo MR#: [id number] : 1970 Acct:[id number] Age/Sex: 51 / F ADM Date: 07/28/22 Loc: [place] [address]: Rajan THORNTON Ordering Physician: Carla Agrawal Date of Service: 07/28/22 Procedure(s): CT chest wo IV con Accession Number(s): [id number] cc: Carla Agrawal~ EXAMINATION: CT chest wo IV con. CLINICAL INFORMATION: Reason for Exam effusion, chest tube dislodgement COMPARISON: Prior CT from 07/28/2022 TECHNIQUE: Multidetector volumetric CT imaging of the chest was done. Axial MIP volume rendering provided. Sagittal and coronal reformatted images were obtained.? This CT examination was performed using dose optimization techniques as appropriate, variously including the following: *Automated exposure control *Adjustment of mA and/or kV according to patient size (this includes techniques or standardized protocols for targeted exams where dose is matched to indication/reason for exam; i.e. extremities or head) *Use of iterative reconstruction technique CONTRAST: Noncontrasted study. DLP: 438 mGy-cm FINDINGS: RACKER OCTAVE BOARD: LINES/TUBES: Endotracheal tube tip is in the right main bronchus, the need to be pulled back approximately 4 cm. Gastric tube passing below the diaphragm into the stomach the tip excluded from film margins. LUNGS: Redemonstration of diffuse dense consolidation of almost the entire right lung lower lobe and patchy consolidations of the right upper lobe and middle lobe, dense consolidation with air bronchogram with adjacent small right pleural effusion. Left lung relatively spared except for very mild atelectasis at left lung base. . AIRWAYS: Endotracheal tube tip is in the right main bronchus. PLEURA: Small right pleural effusion significantly improved from prior exam. MEDIASTINUM AND ERIKA: Assessment for lymphadenopathy limited due to lack of contrast. No mediastinal mass. VESSELS: HEART AND PERICARDIUM: Thoracic aorta is normal in size. Heart is normal in size.? No pericardial effusion. There are heavy coronary calcifications. Pulmonary arteries are normal in size. LOWER NECK, AXILLA:? The visualized thyroid gland is unremarkable. No axillary mass or adenopathy. VISUALIZED ABDOMEN: Unremarkable CHEST WALL AND BONES: There is subcutaneous emphysema along the right side likely from prior chest tube placement. CT/CT chest wo IV con IMPRESSION: ? *? Endotracheal tube tip is in the right main bronchus, need to be pulled back approximately 4 cm. ? *? Gastric tube passing below the diaphragm into the stomach the tip excluded from film margins. ? *? Redemonstration of diffuse dense consolidation of almost the entire right lung, patchy consolidations of the right upper lobe and middle lobe. Attention to follow-up recommended to ensure complete clearance and exclude underlying pathology. Recommend CT scan in 3 months after completion of treatment. ? *? Small right pleural effusion significantly improved from prior exam. ? *? Mild atelectasis at left lung base. ? *? Coronary calcification. ? This critical result was discussed with Beata Agrawal by telephone at 07/28/2022 6:05 PM and it was ascertained that the content and urgency of the report was understood at the time of direct communication. ? Assessment & Plan Assessment & Plan (1) COPD (chronic obstructive pulmonary disease): Code(s): J44.9 - Chronic obstructive pulmonary disease, unspecified (2) Pleural effusion: Code(s): J90 - Pleural effusion, not elsewhere classified Plan Beata's symptoms are multifactorial with contribution from underlying history of Hepatitis C with liver cirrhosis complicated by pleural effusion and ascites, and likely COPD given smoking history. She reports being managed by GI with new diuretic regimen including lasix 60 mg and spironolactone 150 mg. After initiating this regimen she notes improvements in her symptoms. She states she will continue to undergo further workup in preparation for possible TIPS procedure if needed, including a CXR that she will complete next week. Explained to patient if her symptoms worsen, to obtain CXR sooner. On exam, expiratory wheezing was noted throughout. Will treat with course of prednisone and schedule PFT. Will also repeat chest CT in 3 months to ensure complete clearance and exclude underlying pathology, as prior imaging from [facility] admission in July noted 4 mm pulmonary nodule and diffuse dense consolidation of almost the entire right lung, as well as patchy consolidations of the right upper lobe and middle lobe. All questions were answered and patient is in agreement of plan. Will follow up in 6 months or sooner if needed. Orders: Orders CT chest wo IV con 10/15/22 J90 - Pleural effusion, not elsewhere classified PFT pulmonary function test 10/15/22 J44.9 - Chronic obstructive pulmonary disease, unspecified Medications: New prednisone 20 mg PO BID 10 tabs 0RF Discontinued levothyroxine 50 mcg PO DAILY 90 days 90 tabs 3RF Coding Level of Care Code New Pt Level 4 (14953) Diagnoses COPD (chronic obstructive pulmonary disease) J44.9 Pleural effusion J90
== END 2022-08-24 10:45 | disposition home or self-care (01) ==
PROVIDERS: PCP Internal Medicine; Referring Provider Internal Medicine; Visit Provider Nurse Practitioner Family
DX: J44.9 Chronic obstructive pulmonary disease, unspecified (principal); J90 Pleural effusion, not elsewhere classified
CPT/HCPCS: 99204

== ENCOUNTER → 2022-08-24 09:53 | Outpatient (BNVA) | payer OTHER, SELFPAY | PROVIDERS: PCP Internal Medicine; Visit Provider Nurse Practitioner Family | DX: J44.9 Chronic obstructive pulmonary disease, unspecified (principal); J90 Pleural effusion, not elsewhere classified | CPT/HCPCS: 99202 ==

== ENCOUNTER 2022-09-01 15:05 | Outpatient (REF) | payer OTHER, SELFPAY ==
--- NOTE | ~2022-09-01 | XR_ITS ---
EXAMINATION: XR CHEST CLINICAL INFORMATION: Pleural effusions. COMPARISON: Chest radiograph 08/09/2022. TECHNIQUE: 2 views of the chest were obtained. FINDINGS: Near-complete opacification of the right lung with increased size of a now large pleural effusion as well as associated dense airspace opacities. The left lung is clear. No pneumothorax. No significant change in the cardiomediastinal silhouette, although suboptimally assessed on the right side due to overlying effusion/opacities. No acute osseous findings. The visualized upper abdomen is within normal limits. XR/XR chest 2V IMPRESSION: 1. Increased size of a now large right pleural effusion with associated airspace opacities. 2. No significant change in the left lung. This critical result was discussed with provided on-call Dr. Choudhury at 09/01/2022 6:18 PM and it was ascertained that the content was understood at the time of direct communication.
[2022-09-01 20:33] LABS: Amphetamine Screen Urine Not Detected (Not Detect); Barbiturates, Urine Not Detected (Not Detect); Benzodiazepines Screen Urine Not Detected (Not Detect); Cannabinoid Screen Urine Not Detected (Not Detect); Cocaine Screen Urine Not Detected (Not Detect); Fentanyl, urine Not Detected (Not Detect); Opiate Screen Urine Not Detected (Not Detect); Phencyclidine Screen Urine Not Detected (Not Detect)
[2022-09-01 20:40] LABS: Appearance Urine Clear; Color Urine Dark Yellow; Glucose Urine UA Negative (Negative); Leukocyte Esterase Urine Trace (Negative); Nitrite Urine Negative (Negative); Specific Gravity - Urine >= 1.030 (1.005-1.025); UMIC TRIGGER UA YES; Urine Blood Negative (Negative); Urine Ketones Trace mg/dL (Negative); Urine Protein 30 (1+) mg/dL (Neg-Trace)
[2022-09-01 20:45] LABS: Potassium Urine Random 99.3 mmol/L
[2022-09-01 21:34] LABS: Bacteria Urine None Seen (None Seen); Squamous Epithelial Cell Urine 0-2 /HPF (0-2); WBC Urine 0-5 /HPF (0-5)
--- NOTE | 2022-09-01 23:32 | PM.EVENT ---
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 Outpatient GI notes unavailable for review due to hospital policy limiting availability. Pt's contact number was called, no answer. Advice left on vm to go to er if symptomatic and otherwise call Dr Garcia in am. Time Spent With Patient Time: Total time managing care of this patient today ____ minutes.
== END 2022-09-01 15:06 | disposition home or self-care (01) ==
LOC: HO.LAB 15:05
PROVIDERS: PCP Internal Medicine; Visit Provider Internal Medicine
DX: K74.60 Unspecified cirrhosis of liver (principal); J94.8 Other specified pleural conditions; Z87.898 Personal history of other specified conditions
CPT/HCPCS: 71046; 80307; 81001; 81003; 84133; 84300

== ENCOUNTER 2022-09-17 14:40 | Outpatient (AMB) | payer OTHER, SELFPAY ==
--- NOTE | 2022-09-17 14:45 | MHC.OFFVIS ---
Intake Vital Signs 09/17/22 14:54 Height 5 ft 4 in Weight 178 lb BMI 30.6 BP 112/70 Blood Pressure Location Lt brachial Position Sitting Pulse 82 Intake Visit Reasons: 4 week follow up Intake Note: Patient follow up from ER follow up. Patient cc: abdominal bloating, medication is giving her diarrhea, and also patient said her primary care does not wanted to refill Omeprazole.Denies any other GI issues. 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: No Accompanied by: Self / Same As Patient Allergies ciprofloxacin [Cipro] Allergy (Unknown, Verified 09/17/22 14:44) swelling of the throat , hives nitrofurantoin [From Macrobid] Adverse Reaction (Verified 09/17/22 14:44) Liver cirrhosis decompensation HPI HPI Comments History of Present Illness Details This is a 51y.o female with past medical history of HCV (s/p SVR 2014) that led to liver cirrhosis, complicated by portal hypertension with ascites, small bowel Crohn's disease dx in 1994 (s/p ileocecectomy 1994, partial small bowel resection 1996, small bowel stricturoplasty 1998) currently not on any meds, who presents to our office for follow up. 05/10/22: Referred by Dr Ortiz for ERNA. Prev pt of Dr Bryant. Main complaints today are fatigue, loss of energy, hair loss. To recap, pt had hx of Hep C contracted through IVDU. Underwent treatment with Sovaldi and Ribavirin x 2014 (Dr Waterman, [facility]) with reported SVR. She is unable to recall when she was diagnosed with cirrhosis but tells me that she had been seeing Dr Bryant for it x many years. Documentation from 2020 reports ascites on imaging and pt was started on aldactone 50 however she does not remember being on any meds. Last imaging: last ultrasound and CT 04/2021: Ascites. Cirrhotic liver. Last endoscopy: Per pt done in 2019 for crohns, and variceal screening and was overall normal. No records available. In terms of her worsening anemia, initially had a drop in counts in April 2021 when she admitted for E coli sepsis and C Diff and at that time attributed to inflammatory anemia. Since then has been seeing [facility] as outpatient. Started on IV infusions but with less than expected response. Then Hb dropped again to 6.8-7 earlier this year. Pt reports no gastrointestinal complaints to include abd pain, N,V, D. No blood in stool or melena. No changes in appetite. Does not report unintentional weight loss. Pt also has hx of Crohns as above however reports endoscopic remission since her bowel surgeries in as above. Has not taken any meds for it. Last flare requiring pred was . Fam hx: mother and mat aunt: Crohns. Grandfather: etOH related cirrhosis. Correspondence: On 05/27/22 @ 09:06 Romana Garcia Wrote To David Ortiz (2) Mandy Could we pls look into why the pt canceled her procedures? These were booked as urgent due to anemia and cirrhosis. Kindly rebook at the earliest, can be with any provider with availability. And pls educate the pt on importance to keep the appt. CC: PCP as an FYI. 08/06/22: Admission to the hospital on 07/28 for nausea, vomiting and shortness of breath, was found to have large right-sided pleural effusion for which she had thoracostomy tube placement. She received pain medication following which she became very lethargic and had an aspiration event. She was subsequently intubated and then transferred to [facility] due to lack of ICU bed at [facility] or nearby hospitals. At age 2 cc, she was managed for aspiration pneumonia as well as pleural effusion. Chest tube was removed 07/30. Pleural effusion suggestive of hepatic hydrothorax. Once she was extubated and was on 3 L O2, she was transferred to regular floor, however she then left AMA on 08/01. Today, scheduled for a video visit. Reports worsening of shortness of breath over the last 2 days, has also noticed decrease in urine output in the same time. No nausea, vomiting, diarrhea. No chest pain or abdominal pain. She does report taking furosemide 40 mg daily. 08/18/22: Presenting for in person follow up after another ER visit 08/09/22. Went in for concern of decreased urine output. Was found to have normal kidney function but worsening R sided pleural effusion. Does not appear pt underwent thoracentesis or adjustment in her diuretics at that time. Today, coming in with her mom. Pt seated in a wheelchair. Describes compliance with furosemide 40 and low salt diet. Postponed her EGD/colo (initially scheduled for 08/12/22) as wasnt sure if she should be drinking golytely prep. Pt and mom have questions re shunt or drain placement for pleural effusion. 09/17/22: Reports feeling much better in terms of her abd distention and shortness of breath since increasing diuretics from last visit. Has been able to return to work due to better energy levels. Does report intolerance with Spironolactone - gets severe abd pain and nausea with [place]. Did discontinue it for a few days but got same symptoms on rechallenge. Has icnreased lasix to 80 therefore, instead of 60, as she is not taking spirinolactone. Reports tried to reach our office for further instructions on CXR but could not get through - no correspondence in chart re her phone call however. 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 Other Mental health disorder Substance use disorder Social History Household Members: None Housing: Apartment Are you a primary medicare compliance auditor to a significant other at home: No Do you presently have visiting nurse or other home services: No Alcohol intake: never Patient Tobacco Use Status: Current someday Tobacco user Tobacco use type: Cigarette Years Smoked: 17 years old e-Cigarette/Vaping Use: Never Used service: No Current occupational status: employed Cognitive needs: No Hearing needs: No Vision needs: No Review of Systems Const All systems reviewed & are unremarkable except as noted in HPI and below Physical Exam Vital Signs: Last Vital Signs Pulse 82 09/17/22 14:54 BP 112/70 09/17/22 14:54 BMI result Body Mass Index 30.6 Gen Appear: NAD, well nourished HEENT: No scleral icterus, no bitemporal wasting noted Chest: CTA, able to lay flat, resonant on percussion bilaterally CVS: Regular S1/S2 no murmurs Abd: soft, nontender, mildly distended with edema in the pannus on the R side Ext: + peripheral edema bilaterally Neuro: A/Ox3, no asterixis Assessment & Plan Assessment & Plan (1) Ascites: Code(s): R18.8 - Other ascites (2) Pleural effusion: Code(s): J90 - Pleural effusion, not elsewhere classified (3) Hydrothorax: Code(s): J94.8 - Other specified pleural conditions (4) Liver cirrhosis: Code(s): K74.60 - Unspecified cirrhosis of liver (5) Iron deficiency anemia: Code(s): D50.9 - Iron deficiency anemia, unspecified (6) Crohn's disease: Code(s): K50.90 - Crohn's disease, unspecified, without complications Plan 1. Decomp cirrhosis: - ascites and hepatic hydrothorax - MELD-Na 10, Child Haq Class B - Likely secondary to HCV (treated) + VIDES Improved significantly with salt restriction and increase in diuretic dose. Will DC spironolactone due to intolerance and Rx Amiloride instead. However, she was told to get an updated BMP for proper titration of diuretics. Plan: - Cont lasix 80 for now (dose increased by pt) - Stop Spironolactone - Start Amiloride 10 BID - suspect may need to increase further but will await updated renal function - Sodium restriction to 2g/day. Pt advised to track her daily intake. - Repeat BMP and urine lytes ordered - CXR ordered - US Abd for HCC screening due 01/2023 - EGD/colo requested to be rescheduled again (previously postponed twice by the pt) - Obtain updated MELD labs - Chronic liver disease work up also pending from last visit and ordered again 2. ERNA: DDx include oozing from portal hypertensive complications such as varices/PHG, malabsorption from small bowel CD, esophagitis/gastritis/duodenitis, large polyp, mass. - Recheck CBC and iron indices - As above EGD/colo initially scheduled for May and then July. Requested to be booked again - pt strongly counseled to not cancel her appt 3. Crohns disease: Appears to be in clinical remission (and also endoscopic remission as per pt's response). - Stool studies and labs pending from April. Pt reminded to get these done. Follow up after scopes Orders: Orders XR chest 2V Today J90 - Pleural effusion, not elsewhere classified Romana Garcia MD Potassium Urine Random Today R18.8 - Other ascites Romana Garcia MD Sodium Urine Random Today R18.8 - Other ascites Romana Garcia MD Complete Blood Count no Diff Today D64.9 - Anemia, unspecified Romana Garcia MD Prothrombin Time INR Today K74.60 - Unspecified cirrhosis of liver Romana Garcia MD Ceruloplasmin Today K74.60 - Unspecified cirrhosis of liver Romana Garcia MD HIV Ab/Ag Today K74.60 - Unspecified cirrhosis of liver Romana Garcia MD Hepatitis B Surface Antigen Today K74.60 - Unspecified cirrhosis of liver Romana Garcia MD Hepatitis C Antibody Today K74.60 - Unspecified cirrhosis of liver Romana Garcia MD Hepatitis B Surface Antibody Today K74.60 - Unspecified cirrhosis of liver Romana Garcia MD Hepatitis A IgG Today K74.60 - Unspecified cirrhosis of liver Romana Garcia MD Ferritin Today K74.60 - Unspecified cirrhosis of liver Romana Garcia MD IRON PROFILE Today K74.60 - Unspecified cirrhosis of liver Romana Garcia MD Liver Kidney Microsomal Ab Today K74.60 - Unspecified cirrhosis of liver Romana Garcia MD Smooth Muscle Antibody Today K74.60 - Unspecified cirrhosis of liver Romana Garcia MD HCV RNA QN PROG TO GENOTYPE Today K74.60 - Unspecified cirrhosis of liver Romana Garcia MD Transglutaminase IgA Today K50.90 - Crohn's disease, unspecified, without complications Romana Garcia MD Immunoglobulin A Today K50.90 - Crohn's disease, unspecified, without complications Romana Garcia MD C Reactive Protein Today K50.90 - Crohn's disease, unspecified, without complications Romana Garcia MD Calprotectin, Fecal Today K50.90 - Crohn's disease, unspecified, without complications Romana Garcia MD Medications: New amiloride 10 mg (2 x 5 mg) PO DAILY 30 days 60 tabs 0RF Romana Garcia MD amiloride 10 mg (2 x 5 mg) PO BID 120 tabs 0RF 30 days Romana Garcia MD Changed From omeprazole 40 mg PO BEDTIME 90 days 90 caps 0RF To omeprazole 20 mg PO BEDTIME 90 caps 1RF 90 days Romana Garcia MD Discontinued levothyroxine 50 mcg PO DAILY 90 tabs 3RF 90 days Massiel Hilton [facility] spironolactone Discontinued Reason: Doctor's Order 150 mg (1.5 x 100 mg) PO DAILY 135 tabs 0RF Coding Level of Care Code Est Pt Level 5 (58677) Diagnoses Ascites R18.8 Pleural effusion J90 Hydrothorax J94.8 Liver cirrhosis K74.60 Iron deficiency anemia D50.9 Crohn's disease K50.90
[2022-09-17 14:54] VITALS: BP 112/70; PULSE 82; BMI 30.6
== END 2022-09-17 15:55 | disposition home or self-care (01) ==
PROVIDERS: PCP Internal Medicine; Visit Provider Internal Medicine
DX: R18.8 Other ascites (principal); K74.60 Unspecified cirrhosis of liver; D50.9 Iron deficiency anemia, unspecified; K50.90 Crohn's disease, unspecified, without complications
CPT/HCPCS: 99214

== ENCOUNTER → 2022-09-17 14:40 | Outpatient (BNVA) | payer OTHER, SELFPAY | PROVIDERS: PCP Internal Medicine; Visit Provider Internal Medicine | DX: R18.8 Other ascites (principal); J90 Pleural effusion, not elsewhere classified; J94.8 Other specified pleural conditions; K74.60 Unspecified cirrhosis of liver; K50.90 Crohn's disease, unspecified, without complications; D50.9 Iron deficiency anemia, unspecified | CPT/HCPCS: 99212 ==

== ENCOUNTER 2022-09-23 15:51 | Outpatient (REF) | payer OTHER, SELFPAY ==
--- NOTE | ~2022-09-23 | XR_ITS ---
EXAMINATION: XR CHEST CLINICAL INFORMATION: Pleural effusion. COMPARISON: Chest radiograph 09/01/2022. TECHNIQUE: 2 views of the chest were obtained. FINDINGS: Redemonstration of extensive right-sided airspace opacities with associated moderate to large pleural effusion, not significantly changed compared to 09/01/2022. The left lung is clear. Stable appearance of the cardiomediastinal silhouette. No pneumothorax. No acute osseous abnormalities. XR/XR chest 2V IMPRESSION: No significant change compared to 09/01/2022 with persistent significant airspace opacities in the right lung with associated pleural effusion. Continued follow-up is recommended with an interval chest CT with IV contrast, as underlying malignancy cannot be excluded.
[2022-09-23 18:50] LABS: Potassium Urine Random 86.1 mmol/L
== END 2022-09-23 15:52 | disposition home or self-care (01) ==
LOC: HO.LAB 15:51
PROVIDERS: PCP Internal Medicine; Visit Provider Internal Medicine
DX: R18.8 Other ascites (principal); J90 Pleural effusion, not elsewhere classified
CPT/HCPCS: 71046; 84133; 84300

== ENCOUNTER 2022-09-24 14:38 | Outpatient (AMB) | payer OTHER, SELFPAY ==
[2022-09-24 14:39] VITALS: BP 114/64; PULSE 76; O2SAT 87; BMI 31.5
--- NOTE | 2022-09-24 14:39 | MHC.PC.OV ---
Vital Signs 09/24/22 14:39 Height 5 ft 4 in Weight 183 lb 6 oz BMI 31.5 BP 114/64 Blood Pressure Location Lt brachial Position Sitting Pulse 76 Pulse Source Pulse Oximeter Pulse Oximetry (%) 87 L Oxygen Delivery Method Room Air Intake Visit Reasons: Annual PE Allergies ciprofloxacin [Cipro] Allergy (Unknown, Verified 09/24/22 14:39) swelling of the throat , hives nitrofurantoin [From Macrobid] Adverse Reaction (Verified 09/24/22 14:39) Liver cirrhosis decompensation Medication List - Last Reconciled 09/24/22 by David Ortiz MD acyclovir 400 mg PO BEDTIME amiloride 10 mg (2 x 5 mg) PO BID 30 days furosemide 60 mg (1.5 x 40 mg) PO DAILY 30 days levothyroxine 50 mcg PO DAILY@0600 metformin 500 mg PO BID 90 days methadone 76 mg PO DAILY metoprolol succinate ER 50 mg PO DAILY 90 days multivitamin 1 tab PO DAILY omeprazole 20 mg PO BEDTIME 90 days Tobacco use date assessed: 09/24/22 Dental Screening Dental Screen Date: 09/24/22 Did you have a dental visit in the last 12 months?: Yes Did you have a dental problem in the last 6 months where you did not have access to dental care?: No Was dental information given to patient?: No HPI Annual PE HPI Details Patient is a 51-year-old female with history of hepatitis C and liver cirrhosis Continued to have ascites and repeated hospital admissions. Patient also have a history of Crohn's disease He recently Saw Gastroenterology [facility] She had a hospital visit in early July due nausea vomiting shortness of breath and found to have a large right-sided pleural effusion for which she had thoracostomy tube placed during that visit patient has inspiration as well causing intubation and transfer to hospital in syndrome indicated due to lack of ICU beds in [facility]. Once patient was extubated she left [facility] on August 01 Patient had another emergency room visit on August 09 with concern of reduced urine output And found to have a worsening right side pleural effusion A diuretic was adjusted to more fluid from lung removed During telemedicine visit with gastroenterology on of this month patient verbalized to feeling better shortness of breath was better Her spironolactone was discontinued Lasix increased to 80 mg Her last hemoglobin was 9.1 on 08/09/2022 It is difficult for filling what best to draw blood for this patient due to lack of visible wanes She says that gastroenterology has requested labs as well and she has gone twice but it was unsuccessful attempt Patient is due for TSH and hemoglobin A1c as well If her hemoglobin A1c came back below 6. I would like her to stop taking metformin. 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 Other Mental health disorder Substance use disorder Social History Household Members: None Housing: Apartment Are you a primary animal care specialist to a significant other at home: No Do you presently have visiting nurse or other home services: No Alcohol intake: never Patient Tobacco Use Status: Current everyday Tobacco user Tobacco use type: Cigarette Years Smoked: 17 years old e-Cigarette/Vaping Use: Never Used service: No Current occupational status: employed Cognitive needs: No Hearing needs: No Vision needs: No Questionnaire PHQ-9 Over the last 2 weeks, how often have you been bothered by any of the following problems? 1. Little interest or pleasure in doing things: not at all 2. Feeling down, depressed, or hopeless: not at all 3. Trouble falling or staying asleep, or sleeping too much: not at all 4. Feeling tired or having little energy: not at all 5. Poor appetite or overeating: not at all 6. Feeling bad about yourself - or that you are a failure or have let yourself or your family down: not at all 7. Trouble concentrating on things, such as reading the newspaper or watching television: not at all 8. Moving or speaking so slowly that other people could have noticed. Or the opposite - being so fidgety or restless that you have been moving around a lot more than usual: not at all 9. Thoughts that you would be better off or of hurting yourself in some way: not at all Total score: 0 Depression Screening Interpretation: Negative 44486 - PHQ-9 Billing: Yes Source: Developed by Drs. Valeriano Bhakta, Lara Quinones, Julian Golden and colleagues, with an educational maria from [employer]. Thrive Questionnaire Date Thrive assessed: 09/24/22 I am a: Patient What is your living situation today?: I have a steady place to live Within the past 12 months, did the food you bought not last and you didn't have the money to get more?: Never true Within the past 12 months, did you worry whether your food would run out before you got money to buy more?: Never true Do you have trouble paying for medicines?: No Do you have trouble getting transportation to medical appointments?: No Do you have trouble paying your heating and electricity bill?: No Do you have trouble taking care of your child, family member or friend?: No Do you have trouble with day-to-day activities such as bathing, preparing meals, shopping, managing finances, etc.?: No Are you currently unemployed and looking for a job?: No Are you interested in more education?: No AUDIT C Alcohol Use Questionnaire (AUDIT-C) 1. How often do you have a drink containing alcohol?: Never 3. How often do you have six or more drinks on one occasion?: Never Total Score: 0 Score Reviewed/Action Taken: Yes NAV-7 AMB Questionnaire NAV-7 Date NAV - 7 assessed: 09/24/22 Feeling nervous, anxious, or on edge: 0 = Not at all Not being able to stop or control worryin = Not at all Worrying too much about different things: 0 = Not at all Trouble relaxin = Not at all Being so restless that it is hard to sit still: 0 = Not at all Becoming easily annoyed or irritable: 0 = Not at all Feeling afraid as if something awful might happen: 0 = Not at all Total NAV-7 score (0-4 normal; 5-9 mild; 10-14 moderate; 15-21 severe): 0 Source: Developed by Drs. Valeriano Bhakta, Lara Quinones, Julian Golden and colleagues, with an educational maria from [employer]. NAV-7 Assessment Billing NAV-7 Assessment Tool: NAV-7 Assessment 89338 Review of Systems Const Denies chills and Denies fever(s) ENT Denies epistaxis and Denies nasal discharge Card Denies chest pain Resp Denies chest congestion, Denies cough and Denies hemoptysis GI Denies diarrhea and Denies nausea Skin/Breast Denies rash Neuro Reports no additional complaints Psych Reports no additional complaints Endo Reports no additional complaints Physical exam (Primary Care) Vital Signs: Last Vital Signs Pulse 76 09/24/22 14:39 BP 114/64 09/24/22 14:39 Pulse Ox 87 L 09/24/22 14:39 Oxygen Delivery Method Room Air 09/24/22 14:39 BMI result Body Mass Index 31.5 Tobacco/Smoking Status: Tobacco use Status Tobacco use date assessed 09/24/22 09/24/22 14:40 Patient Tobacco Use Status Current everyday Tobacco 09/24/22 14:45 Tobacco use type Cigarette 09/24/22 14:40 e-Cigarette/Vaping Use Never Used 09/24/22 14:40 PHQ-9: PHQ-9 Score PHQ-9: Total score 0 09/24/22 15:41 Depression Screening Interpretation: Negative Thrive Assessment: Date of Thrive Assessment Date Thrive assessed 09/24/22 09/24/22 14:48 Const Other: Patient looks pale but comfortable General: cooperative, comfortable and no acute distress Orientation/consciousness: patient oriented x3 HENMT Head: Yes normocephalic Neck Neck: Yes supple Resp Other: Diminished breath sound right lower lung posteriorly Effort & Inspection: normal respiratory effort, no cough and no stridor Cardio Rhythm: regular rhythm Heart sounds: S1 normal heart sound present and S2 normal heart sound present Skin General skin exam: turgor normal Neuro General: patient oriented x3, tone normal and moves all extremities Assessment and Plan Assessment & Plan (1) Hypothyroidism: Code(s): E03.9 - Hypothyroidism, unspecified (2) Diabetes 1.5, managed as type 2: Code(s): E13.9 - Other specified diabetes mellitus without complications (3) Pleural effusion, right: Code(s): J90 - Pleural effusion, not elsewhere classified (4) Iron deficiency anemia: Code(s): D50.9 - Iron deficiency anemia, unspecified (5) Crohn's disease: Code(s): K50.90 - Crohn's disease, unspecified, without complications (6) Liver cirrhosis: Code(s): K74.60 - Unspecified cirrhosis of liver Plan Patient is a 51-year-old female with history of hepatitis C and liver cirrhosis Continued to have ascites and repeated hospital admissions. Patient also have a history of Crohn's disease He recently Saw Gastroenterology [facility] She had a hospital visit in early July due nausea vomiting shortness of breath and found to have a large right-sided pleural effusion for which she had thoracostomy tube placed during that visit patient has inspiration as well causing intubation and transfer to hospital in syndrome indicated due to lack of ICU beds in [facility]. Once patient was extubated she left [facility] on August 01 Patient had another emergency room visit on August 09 with concern of reduced urine output And found to have a worsening right side pleural effusion A diuretic was adjusted to more fluid from lung removed During telemedicine visit with gastroenterology on of this month patient verbalized to feeling better shortness of breath was better Her spironolactone was discontinued Lasix increased to 80 mg Her last hemoglobin was 9.1 on 08/09/2022 It is difficult for filling what best to draw blood for this patient due to lack of visible wanes She says that gastroenterology has requested labs as well and she has gone twice but it was unsuccessful attempt Patient is due for TSH and hemoglobin A1c as well If her hemoglobin A1c came back below 6. I would like her to stop taking metformin. 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 Orders: Orders TSH reflex Free T4 Today E03.9 - Hypothyroidism, unspecified Hemoglobin A1c Today E13.9 - Other specified diabetes mellitus without complications Medications: New fluticasone propionate 50 mcg/actuation (Flonase Allergy Relief) administer into each nostril 1 spray intranasal DAILY 16 grams 1RF Discontinued levothyroxine 50 mcg PO DAILY 90 days 90 tabs 3RF Coding Level of Care Code Tele New Pt Level 5 (52024) Diagnoses Hypothyroidism E03.9 Diabetes 1.5, managed as type 2 E13.9 Pleural effusion, right J90 Iron deficiency anemia D50.9 Crohn's disease K50.90 Liver cirrhosis K74.60 Additional Codes NAV-7 Assessment Billing - NAV-7 Assessment Tool: NAV-7 Assessment 50007 ([id number]) Time Spent (min) 45 Comment Reviewing charts/notes, [id number], coordination of care
== END 2022-09-24 15:26 | disposition home or self-care (01) ==
PROVIDERS: PCP Internal Medicine; Visit Provider Internal Medicine
DX: Z00.00 Encounter for general adult medical examination without abnormal findings (principal); E03.9 Hypothyroidism, unspecified; E13.9 Other specified diabetes mellitus without complications; K50.90 Crohn's disease, unspecified, without complications; K74.60 Unspecified cirrhosis of liver; J90 Pleural effusion, not elsewhere classified; D50.9 Iron deficiency anemia, unspecified
CPT/HCPCS: 99386

== ENCOUNTER 2022-10-08 10:18 | Emergency (ER) | payer OTHER, SELFPAY | END 2022-10-08 12:19 | disposition left against medical advice (07) | PROVIDERS: Emergency Provider Emergency Medicine; PCP Internal Medicine | DX: R06.02 Shortness of breath (principal); R50.9 Fever, unspecified ==

== ENCOUNTER → 2022-10-26 07:20 | Day surgery (SDC) | payer OTHER, SELFPAY ==
[2022-10-26 07:46] LABS: MANUAL DIFF FLAG NO
[2022-10-26 07:56] LABS: Eosinophils Percent Auto 0.9 % (0-4); Imm Gran Abs Auto 0.01 X10*3/uL (0.00-0.03); Imm Gran Pct Auto 0.2 % (0.0-0.4); Lymphocytes Absolute Auto 1.1 X10*3/uL (1.2-4.9); Lymphocytes Percent Auto 23.6 % (20-40); Mean Corpuscular HGB Conc 28.2 g/dl (31.0-35.0); Mean Corpuscular Hemoglobin 25.4 pg (27.0-33.0); Mean Corpuscular Volume 89.8 fL (80.0-98.0); Mean Platelet Volume 11.3 fL (9.4-12.3); Monocytes Absolute Auto 0.5 X10*3/uL (0.1-1.2); Monocytes Percent Auto 10.4 % (2-11); Neutrophils Absolute Auto 2.9 x10*3/uL (2.0-8.3); Neutrophils Percent Auto 64.9 % (45-73); Platelet Count 109 X10*3/uL (160-400); Red Blood Count 1.97 X10*6/uL (4.20-5.50); Red Cell Distribution Width 17.3 % (11.0-16.0); White Blood Count 4.4 X10*3/uL (4.8-10.8)
[2022-10-26 08:00] LABS: Hematocrit 17.7 % (37.0-47.0)
[2022-10-26 08:01] VITALS: BMI 30.9
--- NOTE | 2022-10-26 08:02 | PC.NURSE ---
IV attempt and insertion by carl hamilton rn
[2022-10-26 08:05] LABS: Anion Gap 14 (12-20); Blood Urea Nitrogen 15 mg/dL (9-16); Carbon Dioxide 28 mmol/L (22-29); Chloride 104 mmol/L (96-108); Creatinine Clr Calc Pharmacy 87.2; Estimated Glomerular Filt Rate > 60; Potassium 4.4 mmol/L (3.3-5.1); Sodium 142 mmol/L (135-145)
[2022-10-26 08:18] LABS: Glucose, Whole Blood 100 mg/dL (60-115)
[2022-10-26 08:23] LABS: INTERNATIONAL NORM RATIO 2.7 (0.9-1.1); Prothrombin Time 33.1 SEC (11.1-13.3)
[2022-10-26 08:28] LABS: Partial Thromboplastin Time 23.2 SEC (26.0-36.4)
[2022-10-26 08:57] VITALS: BP 105/47; PULSE 73; RESP 16; TEMP 36.6; O2SAT 91
--- NOTE | 2022-10-26 09:15 | PC.NURSE ---
Dr. Garcia and Dr. Vega updated that patient had critical lab values after ordered draw this morning. H&H 5.[address] Garcia ordered a T&S which was completed in sss. radiology also updated that patient is 91% RA. Lungs are very diminished throughtout, except upper left lobe which has clear sounds. sob not noted, but patient states she feels sob. decision was made to cancel procedure today and patient is to be sent to ER - patient in agreeance. waiting for doctor to doctor call before transfer. will update. patient poc waas 100, patient stated she becomes symptomatic in the 60's . feels well now.
--- NOTE | 2022-10-26 09:40 | PC.NURSE ---
Dr. Vega gave MD to . This rn gave nurse to nurse to ALISSA [facility] ore charger. patient transported via stretcher to ED-10.
== END ==
PROVIDERS: Radiology Diagnostic Radiology; PCP Internal Medicine; Visit Provider Radiology Vascular & Interventional Radiology
DX: D61.818 Other pancytopenia (principal); Z53.09 Procedure and treatment not carried out because of other contraindication; R79.1 Abnormal coagulation profile; R79.9 Abnormal finding of blood chemistry, unspecified
CPT/HCPCS: 36415; 80051; 82565; 82947; 84520; 85025; 85610; 85730; 86850; 86900; 86901

== ENCOUNTER 2022-10-26 09:46 | Inpatient (IN) | payer OTHER, SELFPAY ==
[2022-10-26] VITALS (13 sets, daily range): BP systolic 94–143; BP diastolic 48–84; PULSE 66–77; RESP 10–20; TEMP 36.4–37.1; O2SAT 92–100; BMI 31.6
--- NOTE | ~2022-10-26 | XR_ITS ---
EXAMINATION: XR CHEST CLINICAL INFORMATION: Status post thoracentesis. COMPARISON: 11/01/2022. TECHNIQUE: Frontal view of the chest was obtained. FINDINGS: There has been significant interval clearing of the previous large right pleural effusion. There is a residual small layering right pleural effusion possibly extending superiorly versus residual loculated components superiorly. The cardiomediastinal silhouette is within normal limits. A Mediport is noted in a stable position. A right central line is also noted in a stable position. The bony structures and soft tissues are unremarkable. XR/XR chest 1V IMPRESSION: Significant interval clearing of previously noted large right pleural effusion with a small residual. No pneumothorax identified.
--- NOTE | ~2022-10-26 | XR_ITS ---
EXAMINATION: XR CHEST CLINICAL INFORMATION: Hypoxia. COMPARISON: Chest CT from 07/28/2022. CXR from 09/23/2022. TECHNIQUE: 2 views of the chest were obtained. FINDINGS: Current findings are quite similar to those seen on 09/23/2022. Again noted is large pleural effusion associated with compressive atelectasis of the right lung. Unable to exclude any superimposed airspace disease. Left lung remains well expanded. No left-sided pleural effusion, pneumothorax or other significant change. Cardiac silhouette is in the normal size range. No evidence of pulmonary edema. The visualized bones are intact. XR/XR chest 2V IMPRESSION: * Persistent large right pleural effusion with likely compressive atelectasis in the right lung. * No pneumothorax or other significant change.
--- NOTE | ~2022-10-26 | US_ITS ---
EXAMINATION: US duplex arterial venous comp, US abdomen complete CLINICAL INFORMATION: Cirrhosis. COMPARISON: CT abdomen 08/09/2022, abdominal ultrasound 05/24/2022. TECHNIQUE: Real-time imaging of the abdominal viscera. Color and spectral Doppler evaluation of the hepatic vasculature. FINDINGS: LIVER: Cirrhotic liver. No discrete liver mass or biliary ductal dilatation. SPLENIC VEIN: Patent with normal waveform. HEPATIC VEINS: Patent with normal waveforms. PORTAL VEINS: Patent with normal waveforms and hepatopetal flow. HEPATIC ARTERIES: Normal upstroke and diastolic flow. INFERIOR VENA CAVA: Patent with normal waveform. GALLBLADDER: Normal. The gallbladder is physiologically distended without evidence of stones, sludge, polyps, wall thickening or pericholecystic fluid. COMMON BILE DUCT: Obscured by bowel gas. PANCREAS: Normal. The visualized pancreatic head and body are normal in appearance. The remainder of the pancreas is obscured from visualization by the overlying bowel gas. RIGHT KIDNEY: The right kidney is not well seen. No hydronephrosis. The kidney measures 8.2 cm in length but the inferior pole the kidneys not well demarcated. LEFT KIDNEY: Normal. No hydronephrosis. No renal calculi or focal parenchymal lesions. The kidney measures 10.8 cm in maximum dimension. SPLEEN: Splenomegaly. The spleen measures 15.8 cm in maximum dimension. ABDOMINAL AORTA: The visualized proximal segment is normal in caliber. INFERIOR VENA CAVA: Visualized portions are normal. FREE FLUID: Moderate right pleural effusion. No visible ascites. US/US duplex arterial venous comp IMPRESSION: Cirrhosis. Splenomegaly 15.8 cm consistent with portal hypertension. No ascites. Moderate right pleural effusion. No portal vein thrombosis.
--- NOTE | ~2022-10-26 | US_ITS ---
EXAMINATION: US-GUIDED RIGHT THORACENTESIS CLINICAL INFORMATION: Right pleural effusion. COMPARISON: Chest x-ray of 10/26/2022 and studies dating back to 07/28/2022. TECHNIQUE: Ultrasound-guided thoracentesis. FINDINGS: Informed consent was obtained from the patient prior to the procedure. During this process, the procedure and potential alternatives were explained, along with the intended outcome and benefits. The risks of the procedure, as well as the risk of not doing the procedure, were discussed. The patient was given the opportunity to ask questions regarding the procedure and appeared competent to make medical decisions. A signed consent form which documents this discussion was placed in the medical record. Using sterile technique and ultrasound guidance a 5-[place] Yueh needle was directed into the right pleural space. A total of 1.2 liters of clear yellow fluid was removed with procedure being stopped due to patient discomfort. Fluid was sent for laboratory studies. US/US thoracentesis IMPRESSION: Right thoracentesis with removal of 1.2 liters of clear yellow fluid.
--- NOTE | ~2022-10-26 | XR_ITS ---
EXAMINATION: XR CHEST CLINICAL INFORMATION: Pleural effusion COMPARISON: X-ray 10/29/2022 TECHNIQUE: Frontal view of the chest was obtained. FINDINGS: Prominent rotated positioning limiting evaluation. Left-sided chest port with the tip projecting at the level of the distal right atrium. Right IJ CVC with tip projecting at the level of the cavoatrial junction. There is near complete opacification of the right hemithorax, with interval worsening as compared to previous. No dense consolidation in the left lung. No significant pneumothorax seen.. XR/XR chest 1V IMPRESSION: Left sided chest port projecting at the level of the proximal right atrium. New complete opacification of the right lung, with interval worsening as compared to previous. This is nonspecific, could represent a combination of atelectasis/airspace disease and pleural effusion. Obstructive atelectasis related to mucous plugging, inflammatory/infectious process cannot be excluded. Recommend close clinical correlation and management. Further evaluation with CT chest as clinically warranted.
--- NOTE | ~2022-10-26 | CT_ITS ---
EXAMINATION: CT CHEST WITHOUT CONTRAST CLINICAL INFORMATION: Hypoxia. Whiteout right lung. COMPARISON: Chest radiograph done earlier today. TECHNIQUE: Multidetector volumetric CT imaging of the chest was done. Axial MIP volume rendering provided. Sagittal and coronal reformatted images were obtained. This CT examination was performed using dose optimization techniques as appropriate, variously including the following: *Automated exposure control *Adjustment of mA and/or kV according to patient size (this includes techniques or standardized protocols for targeted exams where dose is matched to indication/reason for exam; i.e. 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 LUNGS AND PLEURA: There is a large volume simple appearing right-sided pleural effusion present with mean Hounsfield value of 3.3, producing complete collapse consolidation of the underlying right lung except for minimal aerated residual right lung seen at right middle lobe. There is mild mediastinal displacement to the left is noted in the form of mass effect. Note is made of presence of right-sided central catheter placed from the right IJ approach and a left-sided Port-A-Cath placed from the left IJ approach. The tip of both these 2 catheters are seen at the level of the cavoatrial junction. Specific note is made of few tiny air pockets around the left-sided Port-A-Cath, likely represent recent post intervention changes. Please correlate clinically. Diffuse patchy nonspecific groundglass airspace opacities are noted at left lung apex posteriorly (112:5), and also at left lower lobe posterolaterally (202:5). MEDIASTINUM: Displaced to the left secondary to mass effect from large right-sided pleural effusion. CORONARY ARTERY CALCIFICATION: Significant calcific atherosclerotic disease is noted. AXILLA: No lymphadenopathy. UPPER ABDOMEN: Grossly unremarkable on this noncontrast study. OSSEOUS STRUCTURES: No suspicious focal lesion. Additional findings: Generalized soft tissue edema pattern is noted throughout the entire visualized part of the body, may represent anasarca. CT/CT chest wo IV con IMPRESSION: 1. Abnormal study. Opaque right hemithorax secondary to large volume simple appearing right-sided pleural effusion producing complete collapse consolidation of the right lung and mild displacement of the mediastinum to the left. 2. Generalized subcutaneous soft tissue edema pattern seen throughout the entire visualized body, may represent anasarca. Please correlate clinically. Fleischner guidelines were followed.
--- NOTE | ~2022-10-26 | XR_ITS ---
EXAMINATION: XR CHEST CLINICAL INFORMATION: Status post left IJ Port-A-Cath placement. COMPARISON: Chest radiograph 10/27/2022. TECHNIQUE: Frontal view of the chest was obtained. FINDINGS: Left-sided CT compatible chest port with the tip projecting at the level of the proximal right atrium. Right IJ CVC with the tip projecting at the level of the cavoatrial junction. New near complete opacification of the right lung. Clear left lung. No pneumothorax. No acute osseous findings. XR/XR chest 1V IMPRESSION: Left-sided chest port tip projecting at the level of the proximal right atrium. No pneumothorax. New near complete opacification of the right lung, nonspecific could represent a combination of atelectasis and worsening pleural effusion; given rapid onset mucus plugging leading to obstructive atelectasis is not excluded. Close attention on follow-up recommended.
--- NOTE | ~2022-10-26 | US_ITS ---
EXAMINATION: US duplex arterial venous comp, US abdomen complete CLINICAL INFORMATION: Cirrhosis. COMPARISON: CT abdomen 08/09/2022, abdominal ultrasound 05/24/2022. TECHNIQUE: Real-time imaging of the abdominal viscera. Color and spectral Doppler evaluation of the hepatic vasculature. FINDINGS: LIVER: Cirrhotic liver. No discrete liver mass or biliary ductal dilatation. SPLENIC VEIN: Patent with normal waveform. HEPATIC VEINS: Patent with normal waveforms. PORTAL VEINS: Patent with normal waveforms and hepatopetal flow. HEPATIC ARTERIES: Normal upstroke and diastolic flow. INFERIOR VENA CAVA: Patent with normal waveform. GALLBLADDER: Normal. The gallbladder is physiologically distended without evidence of stones, sludge, polyps, wall thickening or pericholecystic fluid. COMMON BILE DUCT: Obscured by bowel gas. PANCREAS: Normal. The visualized pancreatic head and body are normal in appearance. The remainder of the pancreas is obscured from visualization by the overlying bowel gas. RIGHT KIDNEY: The right kidney is not well seen. No hydronephrosis. The kidney measures 8.2 cm in length but the inferior pole the kidneys not well demarcated. LEFT KIDNEY: Normal. No hydronephrosis. No renal calculi or focal parenchymal lesions. The kidney measures 10.8 cm in maximum dimension. SPLEEN: Splenomegaly. The spleen measures 15.8 cm in maximum dimension. ABDOMINAL AORTA: The visualized proximal segment is normal in caliber. INFERIOR VENA CAVA: Visualized portions are normal. FREE FLUID: Moderate right pleural effusion. No visible ascites. US/US abdomen complete IMPRESSION: Cirrhosis. Splenomegaly 15.8 cm consistent with portal hypertension. No ascites. Moderate right pleural effusion. No portal vein thrombosis.
--- NOTE | ~2022-10-26 | XR_ITS ---
EXAMINATION: XR CHEST CLINICAL INFORMATION: Status post right thoracentesis. COMPARISON: 10/26/2022 and 09/23/2022. TECHNIQUE: AP portable view of the chest was obtained. FINDINGS: No pneumothorax is identified. There has been improvement in right chest aeration with residual fluid present as well as apparent elevation of the right hemidiaphragm. There is some right base disease likely related to atelectasis. Heart normal size. No evidence of pulmonary edema. Right internal jugular central venous catheter in place with tip in the superior right atrium. XR/XR chest 1V IMPRESSION: Status post right thoracentesis with improvement in aeration. No pneumothorax.
--- NOTE | ~2022-10-26 | XR_ITS ---
EXAMINATION: XR CHEST CLINICAL INFORMATION: Follow-up hydrothorax COMPARISON: Previous chest x-ray and chest CT most recent from 10/30/2022 TECHNIQUE: Frontal view of the chest was obtained. FINDINGS: There is a right jugular line with tip projecting over the SVC. There is a left jugular port with tip projecting over the SVC. There is complete whiteout of the right hemithorax from right the pleural effusion. This is slightly increased from 10/30 exams. There is shift of the central mediastinal structures to the left. The left lung is clear. There is no left pleural effusion. There is no pneumothorax. XR/XR chest 1V IMPRESSION: Complete white out of the right hemithorax from large right pleural effusion. This is slightly increased from most recent exams 10/30/2022.
--- NOTE | ~2022-10-26 | FL_ITS ---
EXAMINATION: XR FLUOROSCOPY WITH IMAGES CLINICAL INFORMATION: Port-A-Cath COMPARISON: Previous chest x-ray 10/27/2022 TECHNIQUE: Fluoroscopy Supervised By: Dr. Arboleda. Fluoroscopy Time: 100 seconds. Cumulative Dose: 20 mGy. DAP: Not available Images: 1. FINDINGS: 2 lines project over the distal SVC/cavoatrial junction. When compared with previous chest x-ray 10/27/2022, the right side line likely is related to a right jugular central line. Left-sided line likely represents tip of Port-A-Cath catheter. Port-A-Cath port projects over the left medial chest. FL/FL guidance in OR IMPRESSION: Fluoroscopy guidance for Port-A-Cath placement.
--- NOTE | ~2022-10-26 | CT_ITS ---
EXAMINATION: CT ANGIOGRAM ABDOMEN AND PELVIS CLINICAL INFORMATION: Pre-TIPS evaluation. COMPARISON: Previous CT of the abdomen and pelvis July 2022 and abdominal ultrasound October 2022. TECHNIQUE: Multiple axial images were obtained through the abdomen and pelvis following the administration of 85 mL of Omnipaque 350 intravenous contrast. Images were reviewed on a dedicated 3-D workstation. This CT examination was performed using dose optimization techniques as appropriate, variously including the following: *Automated exposure control. *Adjustment of mA and/or kV according to patient size (this includes techniques or standardized protocols for targeted exams where dose is matched to indication/reason for exam; i.e. extremities or head). *Use of iterative reconstruction technique. DLP: 684 mGy-cm FINDINGS: There is a large right pleural effusion. There is compressive atelectasis of the right middle and lower lobes. The left lung is clear. There is no left pleural effusion. The liver is cirrhotic. No focal liver lesion. No biliary duct dilatation. Intrahepatic inferior vena cava and hepatic veins are patent. The right and left and main portal veins are patent. The splenic vein is patent. The superior mesenteric vein is patent. There are upper abdominal perigastric and splenic varices. There is a recannulized paraumbilical vein. There are abdominal wall varices. There is a small amount of ascites. The gallbladder is normal. There is no biliary duct dilatation. The spleen is enlarged and measures 16.5 cm. No focal lesion. The adrenal glands are normal. The kidneys are normal. The bladder is normal. The uterus and adnexa are normal. There is stool throughout the colon suggestive of constipation. Small and large bowel is otherwise normal. The appendix is not seen. The stomach is normal. There are postsurgical changes following right ventral hernia repair with mesh. Small hernia or a bulge along the right lateral mesh margin containing fat, ascitic fluid and varices. Small amount of fluid anterior to the medial margin of the mesh. Appearance is similar to July 2022 exam. There is an umbilical hernia containing fat and a knuckle of transverse colon. There is no evidence of obstruction. There is diffuse anasarca. No enlarged lymph nodes. The abdominal aorta is normal in caliber. Review of bone windows demonstrates increased subchondral sclerosis of both femoral heads questionable for early avascular necrosis. Small umbilical hernia containing fat and knuckle of transverse colon. Constipation. CT/CT angio abdomen pelvis IMPRESSION: Cirrhotic-appearing liver, splenomegaly and small amount of ascites. Patent portal veins. Varices. Large right pleural effusion. Constipation. Post right ventral abdominal wall hernia with mesh. Fleischner guidelines were followed.
--- NOTE | ~2022-10-26 | XR_ITS ---
EXAMINATION: XR CHEST CLINICAL INFORMATION: CVC placement COMPARISON: 10/26/2022 at 10:26 AM TECHNIQUE: Frontal view of the chest was obtained. FINDINGS: Interval placement of right IJ catheter with catheter tip in region of junction of the SVC with the right atrium. No pneumothorax. Again noted is a right pleural effusion and opacification in the right mid to lower lung from atelectasis or airspace disease. There is minimally improved aeration of a portion of the right lung. The left lung is unremarkable. No new pulmonary abnormality. XR/XR chest 1V IMPRESSION: No evidence of pneumothorax after right IJ line placement.
--- NOTE | ~2022-10-26 | US_ITS ---
Right thoracentesis INDICATIONS: Large right pleural effusion After informed and written consent was obtained an official timeout was performed immediately prior to the procedure. PROCEDURE: Initial ultrasound surveillance demonstrates a large right pleural effusion. The skin was prepped and draped in usual fashion in the posterior aspect of the right hemithorax. 1% Xylocaine was used for local anesthetic. A 4 [place] Yueh catheter was placed into the right pleural space. 1.6 L of clear fluid was drained. US/US thoracentesis IMPRESSION: Right thoracentesis with 1.6 L of fluid drained
--- NOTE | 2022-10-26 10:22 | ED_ITS ---
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 Patient has a history of anemia in the past requiring blood transfusions. Her last H&H was 11/13 in July of this year. she received blood transfusion in March of 2022. She sees Dr. Patel from Hematology. She previously required IV iron. She was unable to get a bone biopsy to assess for further hematologic disorder. Patient states for the last couple of weeks she has been more fatigued and short of breath. She states she was unable to get her lab workup but knew that her blood counts were low again. She denies any GI bleeding including no melena, bright red blood per rectum, hematuria, epistaxis. She has been having green diarrhea due to a [employer] drink that she has been drinking. She states she has had colonoscopies in the past with no evidence of GI bleeding. Plan for EDG/colonoscopy in Nov w/ Dr. Garcia. Patient was due for port placement today is she is an extremely difficult stick and has been chronically ill with multiple medical complications from her cirrhosis. she is found have a hemoglobin of 5 and procedure was deferred. complaint: abnormal lab Description of abnormal result: H&H 06/30.7 Associated symptoms: shortness of breath and malaise Related Data Home Medications Medication Instructions Recorded Confirmed methadone 10 mg/mL oral concentrate 76 mg PO DAILY 05/04/21 10/26/22 levothyroxine 50 mcg tablet 50 mcg PO DAILY@0600 07/28/22 10/26/22 multivitamin 1 tab PO DAILY 07/28/22 10/26/22 acyclovir 400 mg tablet 400 mg PO BEDTIME 08/18/22 10/26/22 amiloride 5 mg tablet 5 mg PO DAILY 10/26/22 10/26/22 fluticasone propionate 50 1 spray intranasal DAILY PRN 10/26/22 10/26/22 mcg/actuation nasal Allergy Symptoms spray,suspension (Flonase Allergy Relief) furosemide 40 mg tablet 40 mg PO DAILY 10/26/22 10/26/22 Previous Rx's Medication Instructions Recorded metoprolol succinate 50 mg 50 mg PO DAILY 90 days #90 tabs 06/02/22 tablet,extended release 24 hr metformin 500 mg tablet 500 mg PO BID 90 days #180 tabs 08/05/22 omeprazole 20 mg capsule,delayed 20 mg PO BEDTIME 90 days #90 caps 09/17/22 release Allergies Allergy/AdvReac Type Severity Reaction Status Date / Time ciprofloxacin [Cipro] Allergy Unknown swelling Verified 10/26/22 09:11 of the throat , hives nitrofurantoin AdvReac Liver Verified 10/26/22 09:11 [From Macrobid] cirrhosis decompensation Review of Systems 2 Review of Systems: Yes all other systems are reviewed and are negative PMFSH Past Medical History Medical History Allergic rhinitis Crohn's disease Diabetes 1.5, 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 Other Mental health disorder Substance use disorder Social History Social History Household Members: None Housing: Apartment Are you a primary women's health care nurse practitioner to a significant other at home: No Do you presently have visiting nurse or other home services: No Alcohol intake: never Patient Tobacco Use Status: Current everyday Tobacco user Tobacco use type: Cigarette Years Smoked: 17 years old e-Cigarette/Vaping Use: Never Used Advance Directives: No Advance Directives Information Provided: Yes service: No Current occupational status: employed Cognitive needs: No Hearing needs: No Vision needs: No Physical Exam 2 Vital Signs: Vital Signs: Last Vital Signs Temp 97.5 F 10/26/22 12:12 Pulse 71 10/26/22 12:12 Resp 12 10/26/22 12:12 BP 121/64 10/26/22 12:12 Pulse Ox 100 10/26/22 12:12 O2 Del Method Nasal Cannula 10/26/22 12:12 O2 Flow Rate 2 10/26/22 12:12 BMI result Body Mass Index 31.6 Appearance: Alert. Oriented X3. No acute distress. Pale Head: normocephalic, atraumatic. Eyes: Pupils equal, round and reactive to light. scleral pallor, no scleral icterus ENT: Pharynx normal. No tonsillar swelling or exudate. Neck: Normal inspection. Neck supple. CVS: Normal heart rate and rhythm. Pulses normal. +systolic murmur Respiratory: No respiratory distress. Breath sounds dim Abdomen: obese,soft and nontender. +BS x4 ADAM: normal inspection, no hemhorroids, small amount of green stool in the rectum Skin: Skin warm and dry. Normal skin color. Normal skin turgor. No rashes. Extremities: 3+ pitting lower extremity edema. No joint swelling. Neuro/psych: Oriented X 3. No motor deficit. No sensory deficit. CN II-XII intact. Normal speech and cognition. Course Reevaluation(s) Reevaluation #1: Patient had drop in her H&H from 5 in 17.7 to 4.6 and 16.1. Stool is green but heme-positive. Dr. Jonathan bond from Gastroenterology was contacted. She is recommending a 10 of IV vitamin K for an INR of 3.0. Recommend clear liquids only. Start Rocephin for SBP ppx while bleeding. Octreotide drip for GI bleed. Lactulose for asterixis. Dr. Garica to came to the ER to see the patient - start colonoscopy prep later today for procedure tomorrow after 2nd unit of blood has been given. all orderd placed. patient to be admitted for further management Time: 12:34 Medications Administered Discontinued Medications Generic Name Dose Route Start Last Admin Trade Name Freq PRN Reason Stop Dose Admin Acetaminophen 975 mg 10/26/22 10:40 10/26/22 11:30 Acetaminophen 325 Mg Tablet PO 10/26/22 10:41 975 mg ONCE ONE Administration Diphenhydramine HCl 50 mg 10/26/22 10:40 10/26/22 11:31 Diphenhydramine Hcl 50 Mg/Ml Vial IVPUSH 10/26/22 10:41 50 mg ONCE ONE Administration Furosemide 40 mg 10/26/22 10:40 10/26/22 11:07 Furosemide 40 Mg/4 Ml Vial IVPUSH 10/26/22 10:41 40 mg STAT STA Administration Protocol Sodium Chloride 100 mls @ 100 mls/hr 10/26/22 10:40 10/26/22 12:19 Ns IV 10/26/22 11:39 100 mls/hr ONCE ONE Administration Medical Decision Making Medical Decision Making MDM Narrative: 52-year-old female with complex medical history including hepatitis-C cirrhosis complicated by hepatic hydrothorax, ascites, portal hypertension, splenomegaly with pancytopenia requiring blood transfusions, history of COPD, HTN, HLD, RA, opioid use disorder on methadone, diabetes who presents to the ER for evaluation of acute on chronic anemia. No evidence of bleeding. Her hemoglobin today is 5 down from 10 3 months ago. She is symptomatic with shortness of breath and fatigue. She appears pale on exam. Her blood pressure is soft at 90 systolic, baseline blood pressure appears to be in the low 100s. No evidence of active bleeding. She is not tachycardic. She is saturating 92-94% on room air. Lung sounds are diminished on the right with a recurrent pleural effusion on chest x- ray. No emergent need for drainage at this time. Will plan to transfuse 2 units of blood. Will premedicate with Benadryl and Tylenol as she reports fever, shortness of breath and kidney pain with transfusions in the past. She will require admission to the hospital. At this time she only has a 22 gauge peripheral IV in the right upper arm. patient's repeat H&H did decrease. Her stool was heme positive. She has inadequate IV access, unable to obtain additional peripheral lines. We discussed risks and benefits of central line placement for additional IV access and ability to obtain frequent blood draws. Patient expressed understanding and agreed to the procedure. Dr. Rodriguez came down to evaluate the patient in the emergency department. She recommended starting Rocephin for SBP prophylaxis in the setting of GI bleed, octreotide infusion, lactulose for asterixis, GoLYTELY for colon prep, plan to scope tomorrow. Patient updated on plan of care and is to be admitted to the hospital for further management Differential Diagnosis Differential Diagnoses: The differential diagnosis associated with the presentation includes acute blood loss anemia, hemolytic anemia, sequestration due to splenomegaly, lower GI bleed, upper GI bleed Admission/Observation Consideration of admission/observation: Escalation of care including admission/observation considered Consult Healthcare Provider Management of the patient was discussed with: Hospitalist and Passenger Service Agent Dr. Garcia from Gastroenterology Lab Data MDM Lab Attestation statement: I reviewed the patient's lab results. severe normocytic anemia, pancytopenia, coagulopathy 10/26/22 10:53 10/26/22 10:53 Labs: Lab Results 10/26/22 10/26/22 10/26/22 Range/Units 09:06 10:53 11:57 WBC 3.3 L (4.8-10.8) X10*3/uL RBC 1.78 L (4.20-5.50) X10*6/uL Hgb 4.6 L* (12.0-16.0) g/dl Hct 16.1 L* (37.0-47.0) % MCV 90.4 (80.0-98.0) fL MCH 25.8 L (27.0-33.0) pg MCHC 28.6 L (31.0-35.0) g/dl RDW 17.3 H (11.0-16.0) % Plt Count 93 L (160-400) X10*3/uL MPV 10.5 (9.4-12.3) fL Immature Gran % (Auto) 0.3 (0.0-0.4) % Neut % (Auto) 60.3 (45-73) % Lymph % (Auto) 26.2 (20-40) % [place] % (Auto) 11.7 H (2-11) % Eos % (Auto) 1.2 (0-4) % Baso % (Auto) 0.3 (0-2) % Lymph # (Auto) 0.9 L (1.2-4.9) X10*3/uL [place] # (Auto) 0.4 (0.1-1.2) X10*3/uL Eos # (Auto) 0.0 (0.0-0.4) X10*3/uL Baso # (Auto) 0.0 (0.0-0.2) X10*3/uL Abs Immat Gran (auto) 0.01 (0.00-0.03) X10*3/uL Absolute Neuts (auto) 2.0 (2.0-8.3) x10*3/uL Absolute Nucleated RBC 0.000 (0.0-0.012) X10*3/uL Nucleated RBC % (auto) 0.0 (0.0-0.2) /100WBC PT 36.5 H (11.1-13.3) SEC INR 3.0 H (0.9-1.1) APTT 29.7 D (26.0-36.4) SEC Sodium 142 (135-145) mmol/L Potassium 3.8 (3.3-5.1) mmol/L Chloride 105 (96-108) mmol/L Carbon Dioxide 32 H (22-29) mmol/L Anion Gap 9 L (12-20) BUN 15 (9-16) mg/dL Creatinine 0.73 (0.5-1.4) mg/dL Estim Creat Clear Calc 94.3 Estimated GFR > 60 Random Glucose 74 (60-115) mg/dL Calcium 8.5 (8.4-10.2) mg/dL Magnesium 2.1 (1.6-2.6) mg/dL Total Bilirubin 1.1 H (0.0-1.0) mg/dL Direct Bilirubin 0.6 H (0.0-0.5) mg/dL AST 20 (5-31) U/L ALT 11 (0-31) U/L Alkaline Phosphatase 65 (39-117) U/L Total Protein 5.8 L (6.5-8.0) g/dL Albumin 2.4 L (3.5-5.0) g/dL Stool Occult Blood POSITIVE (NEGATIVE) Blood Type A Positive Antibody Screen NEGATIVE Crossmatch See Detail Independent Interpretation I performed an independent interpretation of an: Plain X-Ray Interpretation: chest x-ray with large right-sided pleural effusion, chronic, 2nd chest x-ray with central line terminating at the cavoatrial junction no pneumothorax Radiology Impression Discussion of test interpretation with radiology: I have reviewed the radiologist's reading. Radiologist Impression: XR/XR chest 2V IMPRESSION: * Persistent large right pleural effusion with likely compressive atelectasis in the right lung. * No pneumothorax or other significant change. Independent Historian Clinical information obtained from an independent historian. History obtained from or confirmed by: Parent External Record Review External record reviewed: Office record, Outpatient record, Prior outpatient labs and Prior outpatient radiology Prescription Management I considered prescription management with: Pain Medication and Other ( blood, diuretics, vitamin K, who albumin) Chronic Conditions Patient?s care impacted by: Other ( hepatitis-C cirrhosis, pancytopenia, chronic right-sided pleural effusion) Social Determinants Patient?s care significantly limited by Social Determinants of Health including: Other Social Determinant of Health Procedures Central Line Placement Right IJ: Time Out Performed: Yes Patient Placed on Monitor/Pulse Ox: Yes MD Prep: mask, gown and gloves Central Line Prep: Chlorhexidine scrub Local Anesthetic: lidocaine 1% Amount of anesthesia used (mL): 4 Ultrasound Used for Placement: Yes Central Line Lumen Inserted: triple Post Procedure: sutured in place, good blood return, all ports aspirated, flushed, capped and sterile dressing applied Post Procedure X-Ray: tip of catheter in good position and no pneumothorax seen Patient Tolerated Procedure: well and no complications Complications: none Critical Care Time Critical Care Time Critical Care Time: Yes Total Critical Care Time: 58 Attestation: I have personally provided critical care time exclusive of time spent on separately billable procedures. Time includes review of lab data, radiology results, discussion with consultants, and monitoring for potential decompensation. Intervention performed as documented. Discharge Plan Discharge Clinical Impression: Acute on chronic anemia, Coagulopathy, Heme positive stool, Pleural effusion, right Patient Disposition: Admitted As Inpatient
[2022-10-26 10:59] LABS: MANUAL DIFF FLAG NO
[2022-10-26 11:04] LABS: Basophils Percent Auto 0.3 % (0-2); Eosinophils Percent Auto 1.2 % (0-4); Imm Gran Abs Auto 0.01 X10*3/uL (0.00-0.03); Imm Gran Pct Auto 0.3 % (0.0-0.4); Lymphocytes Absolute Auto 0.9 X10*3/uL (1.2-4.9); Lymphocytes Percent Auto 26.2 % (20-40); Mean Corpuscular HGB Conc 28.6 g/dl (31.0-35.0); Mean Corpuscular Hemoglobin 25.8 pg (27.0-33.0); Mean Corpuscular Volume 90.4 fL (80.0-98.0); Mean Platelet Volume 10.5 fL (9.4-12.3); Monocytes Absolute Auto 0.4 X10*3/uL (0.1-1.2); Monocytes Percent Auto 11.7 % (2-11); Neutrophils Percent Auto 60.3 % (45-73); Red Blood Count 1.78 X10*6/uL (4.20-5.50); Red Cell Distribution Width 17.3 % (11.0-16.0); White Blood Count 3.3 X10*3/uL (4.8-10.8)
[2022-10-26 11:06] LABS: Platelet Count 93 X10*3/uL (160-400)
[2022-10-26] MEDS: Furosemide 40 MG/4 ML VIAL IVPUSH (11:07)
[2022-10-26 11:09] LABS: Prothrombin Time 36.5 SEC (11.1-13.3)
[2022-10-26 11:11] LABS: Partial Thromboplastin Time 29.7 SEC (26.0-36.4)
[2022-10-26 11:13] LABS: Hemoglobin 4.6 g/dl (12.0-16.0)
[2022-10-26 11:14] LABS: Hematocrit 16.1 % (37.0-47.0)
[2022-10-26 11:28] LABS: Alanine Aminotransferase 11 U/L (0-31); Albumin Level 2.4 g/dL (3.5-5.0); Alkaline Phosphatase 65 U/L (39-117); Anion Gap 9 (12-20); Aspartate Amino Transferase 20 U/L (5-31); Bilirubin Direct 0.6 mg/dL (0.0-0.5); Bilirubin Total 1.1 mg/dL (0.0-1.0); Blood Urea Nitrogen 15 mg/dL (9-16); Calcium 8.5 mg/dL (8.4-10.2); Carbon Dioxide 32 mmol/L (22-29); Chloride 105 mmol/L (96-108); Creatinine Clr Calc Pharmacy 94.3; Estimated Glomerular Filt Rate > 60; Glucose Random 74 mg/dL (60-115); Magnesium 2.1 mg/dL (1.6-2.6); Potassium 3.8 mmol/L (3.3-5.1); Sodium 142 mmol/L (135-145); Total Protein 5.8 g/dL (6.5-8.0)
[2022-10-26] MEDS: Acetaminophen 325 MG TABLET 975 MG PO (11:30)
[2022-10-26] MEDS: diphenhydrAMINE HCL 50 MG/ML VIAL IVPUSH (11:31)
[2022-10-26 12:09] LABS: OBS Int Ctl Valid YES; OBS1 POSITIVE (NEGATIVE)
--- NOTE | 2022-10-26 12:17 | PC.NURSE ---
patient had central line placed, tolerated procedure well. placed on 2l nc for comfort
--- NOTE | 2022-10-26 12:36 | P.CNGI_ITS ---
History of Present Illness Data of Consult Service Date: 10/26/22 Requesting physician: Mattie Huffman Primary Care Provider: David Ortiz MD HPI Reason for consult: Acute on chronic anemia This is a 52y.o female with past medical history of HCV (s/p SVR 2014) that led to liver cirrhosis, complicated by portal hypertension with ascites and hydrothorax (adm to [facility] ICU in July 2022 for resp failure but left AMA), small bowel Crohn's disease dx in 1994 (s/p ileocecectomy 1994, partial small bowel resection 1996, small bowel stricturoplasty 1998) currently not on any meds, who is admitted to the hospital for acute on chronic anemia. Pt established with [facility] as outpatient for ERNA and decompensated cirrhosis. Was scheduled for urgent EGD/colo in May and then again in July however rescheduled by pt both the times. Currently scheduled for 12/02. She is also being managed for decompensated cirrhosis with ascites and hydrothorax and is on diuretics Amiloride and lasix. Lab monitoring has been challenging as pt is a hard stick, despite multiple attempts by phlebotomy dept. She was therefore sg for port placement today through IR. However, pre-procedure labs showed drop in Hb to 5 from 9 in July. The procedure was therefore canceled and she was transferred to ER for further evaluation and management. Pt was seen at bedside, mother present as well. Reports having worsening shortness of breath, poor energy levels and extreme fatigue for the past 2 weeks. Not assoc with abd pain, N, V. Does get diarrhea on and off due to underlying crohns which is not worse per her report. Vitally stable. Receiving her first unit at the time of assessment. 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 Other Mental health disorder Substance use disorder Surgical History Surgical History History of hernia repair History of bowel resection History of appendectomy Social History Social History Household Members: None Housing: Apartment Are you a primary personal care aide to a significant other at home: No Do you presently have visiting nurse or other home services: No Alcohol intake: never Patient Tobacco Use Status: Current everyday Tobacco user Tobacco use type: Cigarette Years Smoked: 17 years old e-Cigarette/Vaping Use: Never Used Advance Directives: No Advance Directives Information Provided: Yes service: No Current occupational status: employed Cognitive needs: No Hearing needs: No Vision needs: No Meds Allergies Allergy/AdvReac Type Severity Reaction Status Date / Time ciprofloxacin [Cipro] Allergy Unknown swelling Verified 10/26/22 09:11 of the throat , hives nitrofurantoin AdvReac Liver Verified 10/26/22 09:11 [From Macrobid] cirrhosis decompensation Active Medications: Current Medications Phytonadione 10 mg/ Sodium (Chloride) 51 mls @ 51 mls/hr IV ONCE ONE Stop: 10/26/22 13:31 Home Medications Medication Instructions Recorded Confirmed Last Taken Type methadone 10 mg/mL oral concentrate 76 mg PO DAILY 05/04/21 10/26/22 10/26/22 History levothyroxine 50 mcg tablet 50 mcg PO DAILY@0600 07/28/22 10/26/22 10/26/22 History multivitamin 1 tab PO DAILY 07/28/22 10/26/22 07/27/22 History acyclovir 400 mg tablet 400 mg PO BEDTIME 08/18/22 10/26/22 Unknown History amiloride 5 mg tablet 5 mg PO DAILY 10/26/22 10/26/22 Unknown History fluticasone propionate 50 1 spray intranasal DAILY PRN 10/26/22 10/26/22 Unknown History mcg/actuation nasal Allergy Symptoms spray,suspension (Flonase Allergy Relief) furosemide 40 mg tablet 40 mg PO DAILY 10/26/22 10/26/22 Unknown History Physical Exam 2 Vital Signs: Vital Signs: Last Vital Signs Temp 97.5 F 10/26/22 12:12 Pulse 71 10/26/22 12:12 Resp 12 10/26/22 12:12 BP 121/64 10/26/22 12:12 Pulse Ox 100 10/26/22 12:12 O2 Del Method Nasal Cannula 10/26/22 12:12 O2 Flow Rate 2 10/26/22 12:12 BMI result Body Mass Index 31.6 Gen Appear: NAD, pale appearing HEENT: No scleral icterus, no bitemporal wasting noted Chest: Diminished sounds on R base CVS: Regular S1/S2 no murmurs Abd: soft, nontender, distended with edema in the pannus on the R side Ext: +++ peripheral edema bilaterally Neuro: A/Ox3, asterixis + Results Labs 10/26/22 10:53 10/26/22 10:53 Labs: Short CBC 10/26/22 Range/Units 10:53 WBC 3.3 L (4.8-10.8) X10*3/uL Hgb 4.6 L* (12.0-16.0) g/dl Hct 16.1 L* (37.0-47.0) % Plt Count 93 L (160-400) X10*3/uL BMP 10/26/22 10:53 Sodium 142 Potassium 3.8 Chloride 105 Carbon Dioxide 32 H BUN 15 Creatinine 0.73 Calcium 8.5 Liver Function 10/26/22 Range/Units 10:53 Total Bilirubin 1.1 H (0.0-1.0) mg/dL Direct Bilirubin 0.6 H (0.0-0.5) mg/dL AST 20 (5-31) U/L ALT 11 (0-31) U/L Alkaline Phosphatase 65 (39-117) U/L Albumin 2.4 L (3.5-5.0) g/dL Assessment and Plan (1) Liver cirrhosis: Status: Acute (2) Hydrothorax: Status: Acute (3) Acute on chronic anemia: Status: Acute (4) Ascites: Status: Acute (5) Pancytopenia: Status: Chronic (6) Hepatic encephalopathy: Status: Acute Plan #Acute on chronic anemia #Decompensated cirrhosis - MELD-Na 19 - Ascites, R sided hydrothorax and hepatic encephalopathy Ddx for acute on chronic anemia include oozing from portal hypertensive complications such as varices/PHG, malabsorption from small bowel CD, esophagitis/gastritis/duodenitis, large polyp, mass. Long overdue for bidirectional endoscopy as summarised above which we will now arrange for as inpatient. In terms of decomp cirrhosis, HCV has been treated and SVR documented previously. However given gradual worsening of portal HTN, would recommend rechecking viral load. Would also recommend US ABd with doppler to r/o PV thrombosis. Pt has known ascites and hydrothorax for which she is on diuretics. Also noted to be encephalopathic today. Recommendations: - Has central line in place for IV access - Transfuse at least 3u PRBC - Recheck H/H BID and transfuse for Hb < 7 - Start IV ceftriaxone for infection prophylaxis in this pt with likely GI bleed - Octreotide IV gtt and PPI BID - Will plan for EGD/colo tentatively for tmrw - Clear liquids today. NPO after MN - GoLYTELY ordered to start AFTER pt has been transfused PRBC and symptomatic anemia has improved - Vit K 10mg IV x 1 dose linh. Recheck INR tmrw AM and repeat if INR > 2.5. - Lactulose x 1 dose to be given today. (since also getting golytely will defer the usual 3 doses) - US Abd with doppler ordered - Hepatitis labs ordered Thank you for allowing me to participate in her care. Please do not hesitate to reach out for any questions or concerns. Time Spent With Patient Time: Total time managing care of this patient today ____ minutes. Procedures Date of Service Date of Service: 10/26/22
--- NOTE | 2022-10-26 13:37 | PHA.MEDREC ---
Pharmacy Consult ? Medication Reconciliation Pharmacy has completed the medication reconciliation. Patinet reported all medications. Reports taking one tablet (40 mg) of lasix instead of 1.5 (60 mg). Reports taking amiloride 1 tab (5 mg) daily instead of 2 tab (10 mg BID) per prescription. Patient reported methadone from [facility]. Relase of information will need to be fax by RN and follow-up tomorrow as the clinic closes 1340. Neva Figueredo, PharmD
--- NOTE | 2022-10-26 14:17 | PM.IMHP ---
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 The patient has pancytopenia and follows with Hematology. Unfortunately, the patient is a very difficult labs stick and no labs have been able to be performed in the last 3 months. She was sent to short-stay surgery this morning to have port placement to assist with blood draws and infusions and CBC this morning revealed hemoglobin of 5 with hematocrit 17. She was transferred showed H/H 4.6/16.1 %. The patient denies any active bleeding. Does have known cirrhosis with ascites but denies any variceal bleeding, melena, or bright red blood per rectum. She has felt increasingly fatigued with worsening shortness of breath. No syncope, palpitations, chest pain. In the ED, blood pressure soft but vitals otherwise stable. Additional hematology results revealed pancytopenia with white blood cell count 3.3, RBC 1.78, platelets 93. Renal function normal, electrolyte levels normal except for a slightly elevated CO2 of 32. Total bilirubin baseline at 1.1, direct bilirubin 0.6, AST/ALT normal. Albumin 2.4. Chest x-ray showed persistent large right pleural effusion with likely compressive atelectasis in the right lung but no pneumothorax or other significant change. Right IJ was placed by ED provider with repeat CXR again negative for pneumothorax. ED discussed case with Gastroenterology who will follow the patient with plan for colonoscopy and possible endoscopy tomorrow a.m.. She has been started on octreotide, IV PPI, given 2 L packed red blood cells with 40 mg furosemide. <NORBERTO Juan - Last Filed: 10/26/22 19:11> Review of Systems Review of Systems: General: No fevers, malaise, unintentional weight loss. +fatigue HEENT: No blurred vision, diplopia. No sore throat, nasal congestion, rhinorrhea, sinus pain, ear pain Cardiovascular: No chest pain, palpitations, or leg edema Respiratory: +sob. No wheezing, cough GI: No abdominal pain, nausea, vomiting, diarrhea, constipation, melena, hematochezia : No dysuria, hematuria, increased urinary frequency, decreased urinary output MSK: No myalgia, back pain Neuro: No headaches, weakness, paresthesias Skin: No rashes or lesions <NORBERTO Juan - Last Filed: 10/26/22 19:11> [facility] Medical History: Medical History History of hepatitis C COPD (chronic obstructive pulmonary disease) Hydrothorax Pleural effusion, right Iron deficiency anemia Ascites of liver Liver cirrhosis Hypertension, essential Hypothyroidism Allergic rhinitis Lipid disorder Rosacea Rheumatoid arthritis 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 Other Mental health disorder Substance use disorder <NORBERTO Juan - Last Filed: 10/26/22 19:11> Surgical History: Surgical History History of hernia repair History of bowel resection History of appendectomy <NORBERTO Juan - Last Filed: 10/26/22 19:11> Social History: Social History Household Members: None Housing: Apartment Are you a primary healthcare financial analyst to a significant other at home: No Do you presently have visiting nurse or other home services: No Alcohol intake: never Patient Tobacco Use Status: Current everyday Tobacco user Tobacco use type: Cigarette Years Smoked: 17 years old e-Cigarette/Vaping Use: Never Used service: No Current occupational status: employed Cognitive needs: No Hearing needs: No Vision needs: No <NORBERTO Juan - Last Filed: 10/26/22 19:11> Meds Allergies/Adverse reactions: Allergies Allergy/AdvReac Type Severity Reaction Status Date / Time ciprofloxacin [Cipro] Allergy Unknown swelling Verified 10/26/22 09:11 of the throat , hives nitrofurantoin AdvReac Liver Verified 10/26/22 09:11 [From Macrobid] cirrhosis decompensation <NORBERTO Juan - Last Filed: 10/26/22 19:11> Active Medications: Current Medications Acetaminophen (Acetaminophen 325 Mg Tablet) 650 mg PO Q6H PRN PRN Reason: Pain, Mild (Pain Scale 1-3) Docusate Sodium (Docusate Sodium 100 Mg Capsule) 100 mg PO DAILY PRN PRN Reason: Constipation Ceftriaxone Sodium 1 gm/ (Sodium Chloride) 50 mls @ 100 mls/hr IV Q24H FLORENCIO Octreotide Acetate 500 mcg/ (Sodium Chloride) 501 mls @ 50.1 mls/hr IVCONT .Q10H FLORENCIO Lactulose (Lactulose 20 Gm/30 Ml Solution) 30 gm PO TID FLORENCIO Morphine Sulfate (Morphine Sulfate 4 Mg/Ml Cartridge) 2 mg IVPUSH Q4H PRN; Protocol PRN Reason: Pain, Severe (Pain Scale 7-10) Ondansetron HCl (Ondansetron Hcl 4 Mg/2 Ml Vial) 4 mg IVPUSH Q8H PRN PRN Reason: Nausea and Vomiting Polyethylene Glycol/Electrolytes (Peg 3350/Na Sulf,Bicarb,Cl/Kcl 4,000 Ml Soln.Recon) 4,000 ml PO ONCE ONE Stop: 10/26/22 20:01 Sodium Chloride (0.9 % Sodium Chloride Flush 3 Ml Syringe) 3 ml IVFLUSH QSHIFT FLORENCIO <NORBERTO Juan - Last Filed: 10/26/22 19:11> Home medications: Home Medications Medication Instructions Recorded Confirmed Last Taken Type methadone 10 mg/mL oral concentrate 76 mg PO DAILY 05/04/21 10/27/22 10/26/22 History levothyroxine 50 mcg tablet 50 mcg PO DAILY@0600 07/28/22 10/26/22 10/26/22 History multivitamin 1 tab PO DAILY 07/28/22 10/26/22 07/27/22 History acyclovir 400 mg tablet 400 mg PO BEDTIME 08/18/22 10/26/22 Unknown History amiloride 5 mg tablet 5 mg PO DAILY 10/26/22 10/26/22 Unknown History fluticasone propionate 50 1 spray intranasal DAILY PRN 10/26/22 10/26/22 Unknown History mcg/actuation nasal Allergy Symptoms spray,suspension (Flonase Allergy Relief) furosemide 40 mg tablet 40 mg PO DAILY 10/26/22 10/26/22 Unknown History <NORBERTO Juan - Last Filed: 10/26/22 19:11> Physical Exam Vital Signs and Narrative: Vital Signs: Last Vital Signs Temp 97.5 F 10/26/22 12:12 Pulse 71 10/26/22 14:05 Resp 18 10/26/22 14:05 BP 123/69 10/26/22 14:05 Pulse Ox 92 10/26/22 14:05 O2 Del Method Room Air 10/26/22 14:05 O2 Flow Rate 2 10/26/22 12:12 BMI result Body Mass Index 31.6 <NORBERTO Juan - Last Filed: 10/26/22 19:11> Constitutional - Awake and Alert, No apparent distress, pallow Eyes - PERRLA, EOMI Cardiovascular - S1S2, RRR, No edema Respiratory - Normal lung expansion, Normal respiratory effort, No respiratory distress, diminished breath longs right lung, otherwise cta Gastrointestinal - NT / ND; +BS; No rebound or guarding, asterixis Extremities - no calf tenderness bilaterally, no swelling Skin - Warm/Dry Neurological - Alert & oriented x3, CN II-XII in tact, 5/5 strength BUE and BLE Psychological - Appropriate affect <NORBERTO Juan - Last Filed: 10/26/22 19:11> Results Labs CBC and Chem 7: 10/27/22 06:22 10/27/22 06:22 <NORBERTO Juan - Last Filed: 10/26/22 19:11> Labs: Laboratory Results - last 24 hr 10/26/22 10/26/22 10/26/22 09:06 10:53 11:57 MCV 90.4 MCH 25.8 L MCHC 28.6 L RDW 17.3 H Plt Count 93 L MPV 10.5 Immature Gran % (Auto) 0.3 Neut % (Auto) 60.3 Lymph % (Auto) 26.2 Lipscomb % (Auto) 11.7 H Eos % (Auto) 1.2 Baso % (Auto) 0.3 Lymph # (Auto) 0.9 L Lipscomb # (Auto) 0.4 Eos # (Auto) 0.0 Baso # (Auto) 0.0 Abs Immat Gran (auto) 0.01 Absolute Neuts (auto) 2.0 Absolute Nucleated RBC 0.000 Nucleated RBC % (auto) 0.0 PT 36.5 H INR 3.0 H APTT 29.7 D Anion Gap 9 L Estim Creat Clear Calc 94.3 Estimated GFR > 60 Random Glucose 74 Calcium 8.5 Magnesium 2.1 Total Bilirubin 1.1 H Direct Bilirubin 0.6 H AST 20 ALT 11 Alkaline Phosphatase 65 Total Protein 5.8 L Albumin 2.4 L Stool Occult Blood POSITIVE Blood Type A Positive Antibody Screen NEGATIVE Crossmatch See Detail <NORBERTO Juan - Last Filed: 10/26/22 19:11> Imaging Radiologist's Impressions: Impressions Chest X-Ray 10/26/22 10:24 IMPRESSION: * Persistent large right pleural effusion with likely compressive atelectasis in the right lung. * No pneumothorax or other significant change. Chest X-Ray 10/26/22 12:25 IMPRESSION: No evidence of pneumothorax after right IJ line placement. 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 requiring a chest tube in July (complicated by fluid shift, agitation and intubation), iron deficiency anemia, COPD, rheumatoid arthritis, Crohn disease, hypothyroidism, diabetes admitted for acute blood loss anemia #Acute blood loss anemia- due to acute GI bleed -Has chronic iron deficiency anemia at baseline but has not been able to have labs drawn in the last 3 months due to access issues -H/H in ED -Denies active GI bleed, however stool heme positive -transfuse 2 units in the ED with 40 mg IV Lasix given between units -IV ppi, IV octreotide per Gastroenterology -clear liquid diet, NPO after midnight -plan for colonoscopy with possible endoscopy tomorrow per GI -colonoscopy prep ordered for tonight -repeat H&H this evening. Follow daily -monitor on telemetry #Coagulopathy -2/2 hepatic cirrhosis. -Given vitamin K -Follow coags # hepatic cirrhosis complicated by ascites -LFTs baseline -asterixis noted on exam, ammonia level pending. Initiate lactulose 30 mg t.i.d. -given acute blood loss anemia, treat with 1 g IV ceftriaxone for SBP prophylaxis # hepatic hydrothorax -effusion stable on CXR -no hypoxia at rest -continue diuretics # COPD -no acute exacerbation -continue home inhalers, albuterol p.r.n. # Crohn's disease -without acute flare up # hypothyroidism -continue Synthroid # type 2 diabetes -POC glucose -advanced a diabetic diet -Humalog on sliding scale -hold metformin DVT prophylaxis- SCPs Full code Plan discussed with Dr. Welsh as well as Dr. Skaggs from anesthesia and Dr. Vazquez from ICU given concerns with decompensation during procedure. She has large hydrothorax of about 80% of the right lung, likely connected to abd/ascites accounting for rapid reaccumulation s/p chest tube placement with 2.5L drained and patient requiring intubation subsequently. She is not hypoxic at rest, but desaturates significantly with minimal exertion. Discussed possible need for intubation with Dr. Skaggs and Dr. Vazquez with subsequent concerns regarding extubation. Plan to be further discussed between Dr. Garcia and Taylor. Per patient there are also plans for eventual transfer [facility] for transplant, but details surrounding this plan are unclear. Defer to Gastroenterology. Patient requires inpatient stay of at least 2 midnights for management of acute blood loss anemia secondary to GI bleed in patient with complicated cirrhosis requiring blood transfusions, further procedural intervention with extra consultation. 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 requiring a chest tube in July (complicated by fluid shift, agitation and intubation), iron deficiency anemia, COPD, rheumatoid arthritis, Crohn disease, hypothyroidism, diabetes admitted for acute blood loss anemia #Acute blood loss anemia- due to acute GI bleed -Has chronic iron deficiency anemia at baseline but has not been able to have labs drawn in the last 3 months due to access issues -H/H in ED -Denies active GI bleed, however stool heme positive -transfuse 2 units in the ED with 40 mg IV Lasix given between units -IV ppi, IV octreotide per Gastroenterology -clear liquid diet, NPO after midnight -plan for colonoscopy with possible endoscopy tomorrow per GI -colonoscopy prep ordered for tonight -repeat H&H this evening. Follow daily -monitor on telemetry #Coagulopathy -2/2 hepatic cirrhosis. -Given vitamin K -Follow coags # hepatic cirrhosis complicated by ascites -LFTs baseline -asterixis noted on exam, ammonia level pending. Initiate lactulose 30 mg t.i.d. -given acute blood loss anemia, treat with 1 g IV ceftriaxone for SBP prophylaxis # hepatic hydrothorax -effusion stable on CXR -no hypoxia at rest -continue diuretics # COPD -no acute exacerbation -continue home inhalers, albuterol p.r.n. # Crohn's disease -without acute flare up # hypothyroidism -continue Synthroid # type 2 diabetes -POC glucose -advanced a diabetic diet -Humalog on sliding scale -hold metformin DVT prophylaxis- SCPs Full code Plan discussed with Dr. Welsh as well as Dr. Skaggs from anesthesia and Dr. Vazquez from ICU given concerns with decompensation during procedure. She has large hydrothorax of about 80% of the right lung, likely connected to abd/ascites accounting for rapid reaccumulation s/p chest tube placement with 2.5L drained and patient requiring intubation subsequently. She is not hypoxic at rest, but desaturates significantly with minimal exertion. Discussed possible need for intubation with Dr. Skaggs and Dr. Vazquez with subsequent concerns regarding extubation. Plan to be further discussed between Dr. Garcia and Taylor. Per patient there are also plans for eventual transfer to [facility] for transplant, but details surrounding this plan are unclear. Defer to Gastroenterology. Patient requires inpatient stay of at least 2 midnights for management of acute blood loss anemia secondary to GI bleed in patient with complicated cirrhosis requiring blood transfusions, further procedural intervention with extra consultation. Addendum to history and physical by the advanced practice provider, NORBERTO Alejandre I interviewed and examined the patient. I discussed their presentation and management with the MARISOL. I reviewed the history and physical and agree with the documentation, with the following additions and corrections: 52yo F with decompensated HCV cirrhosis [HCV was treated/cured] with ascites/hepatic hydrothorax requiring tube thoracostomy in July [complicated by resp failure/intubated + transferred to [facility] for ICU care], RA, Crohn's disease, hypothyroidism, DM, OUD on methadone Went to [facility] for port placement for infusions and blood draws but found to have H+H 06/30. FOBT+. Pt endorses progressive fatigue/dyspnea. CBC in ED 3.3\4.6. CXR with large R pleural effusion with compressive atelectasis. Pt with obvious asterixis but normal mental status. Plan admit to [facility], transfuse 3u PRBCs, give IV PPI + IV octreotide + IV ceftriaxone, consult GI for EGD/C-scope. To consider thoracentesis. Lactulose/rifaximin for hepatic encephalopathy. Give vit K for INR 3. <Esetlla Welsh MD - Last Filed: 10/27/22 14:23> Time Spent With Patient Time: Total time managing care of this patient today ____ minutes. <NORBERTO Juan - Last Filed: 10/26/22 19:11> Quality Stroke Does the patient have a stroke diagnosis?: No <NORBERTO Juan - Last Filed: 10/26/22 19:11> VTE Prior VTE?: No <NORBERTO Juan - Last Filed: 10/26/22 19:11> VTE Risk Level:: Medical - moderate - high <NORBERTO Juan - Last Filed: 10/26/22 19:11> VTE Device Contraindication: N/A - Device Ordered <NORBERTO Juan - Last Filed: 10/26/22 19:11> VTE Drug Contraindication: Treatment Not Indicated <NORBERTO Juan - Last Filed: 10/26/22 19:11>
[2022-10-26] MEDS: Phytonadione (Vit K1) 10 MG in 0.9 % Sodium Chloride 50 ML 51 MG IV (14:22)
[2022-10-26] MEDS: Pantoprazole Sodium 40 MG/10 ML VIAL IVPUSH (14:27)
[2022-10-26] MEDS: Octreotide Acetate 500 MCG in 0.9 % Sodium Chloride 500 ML 50.1 MCG IVCONT (14:27)
[2022-10-26] MEDS: Morphine Sulfate 4 MG/ML CARTRIDGE IVPUSH (14:28)
--- NOTE | 2022-10-26 14:35 | PC.NURSE ---
patient up using commode, saturation dropped down to 44% room air. blood products stopped, put on 4l NC, positioned sitting up in bedsaturation brought back up to 96 % on 4l NC
[2022-10-26 16:23] LABS: Ammonia 65 umol/L (13-55)
[2022-10-26 16:27] LABS: Hematocrit 20.7 % (37.0-47.0)
[2022-10-26 17:21] LABS: Glucose, Whole Blood 119 mg/dL (60-115)
[2022-10-26] MEDS: Lactulose 20 GM/30 ML SOLUTION 30 GM PO ×2 (17:32→19:56)
[2022-10-26] MEDS: Morphine Sulfate 4 MG/ML CARTRIDGE 2 MG IVPUSH (18:36)
[2022-10-26] MEDS: cefTRIAXone sodium 1 GM in 0.9 % Sodium Chloride 50 ML IV (18:41)
[2022-10-26] MEDS: Acyclovir 200 MG CAPSULE 400 MG PO (19:57)
[2022-10-26] MEDS: PEG 3350/Na Sulf,Bicarb,Cl/KCL 4,000 ML SOLN.RECON 4000 ML PO (20:01)
[2022-10-26] MEDS: Omeprazole 20 MG CAPSULE.DR PO (20:01)
[2022-10-26 20:24] LABS: Glucose, Whole Blood 181 mg/dL (60-115)
[2022-10-26] MEDS: ondansetron HCL 4 MG/2 ML VIAL IVPUSH (20:49)
[2022-10-26] MEDS: 0.9 % Sodium Chloride Flush 3 ML SYRINGE IVFLUSH (20:53)
[2022-10-26 21:25] LABS: PLT CLUMP 1; Red Cell Distribution Width 16.1 % (11.0-16.0)
[2022-10-26 21:27] LABS: Hematocrit 24.8 % (37.0-47.0); Hemoglobin 7.2 g/dl (12.0-16.0); Mean Corpuscular Hemoglobin 26.4 pg (27.0-33.0); Mean Corpuscular Volume 90.8 fL (80.0-98.0); Mean Platelet Volume 10.8 fL (9.4-12.3); Red Blood Count 2.73 X10*6/uL (4.20-5.50)
[2022-10-26 21:32] LABS: White Blood Count 4.8 X10*3/uL (4.8-10.8)
[2022-10-26 21:35] LABS: Platelet Count 96 X10*3/uL (160-400)
[2022-10-27] VITALS (12 sets, daily range): BP systolic 114–148; BP diastolic 60–93; PULSE 57–88; RESP 8–20; TEMP 36.2–37.3; O2SAT 84–97
[2022-10-27 00:30] LABS: Hematocrit 25.5 % (37.0-47.0); Hemoglobin 7.6 g/dl (12.0-16.0)
[2022-10-27] MEDS: Octreotide Acetate 500 MCG in 0.9 % Sodium Chloride 500 ML 50.1 MCG IVCONT (03:13)
[2022-10-27] MEDS: Acetaminophen 325 MG TABLET 650 MG PO ×3 (05:57→23:12)
[2022-10-27] MEDS: Levothyroxine Sodium 50 MCG TABLET PO (05:57)
[2022-10-27] MEDS: Morphine Sulfate 4 MG/ML CARTRIDGE 2 MG IVPUSH (06:04)
[2022-10-27 06:37] LABS: MANUAL DIFF FLAG NO
[2022-10-27 06:41] LABS: Basophils Percent Auto 0.3 % (0-2); Eosinophils Absolute Auto 0.1 X10*3/uL (0.0-0.4); Eosinophils Percent Auto 1.7 % (0-4); Hematocrit 24.8 % (37.0-47.0); Hemoglobin 7.3 g/dl (12.0-16.0); Imm Gran Abs Auto 0.02 X10*3/uL (0.00-0.03); Imm Gran Pct Auto 0.3 % (0.0-0.4); Lymphocytes Percent Auto 16.5 % (20-40); Mean Corpuscular HGB Conc 29.4 g/dl (31.0-35.0); Mean Corpuscular Hemoglobin 26.6 pg (27.0-33.0); Mean Corpuscular Volume 90.5 fL (80.0-98.0); Mean Platelet Volume 11.6 fL (9.4-12.3); Monocytes Absolute Auto 0.7 X10*3/uL (0.1-1.2); Monocytes Percent Auto 12.6 % (2-11); Neutrophils Percent Auto 68.6 % (45-73); Platelet Count 96 X10*3/uL (160-400); Red Blood Count 2.74 X10*6/uL (4.20-5.50); Red Cell Distribution Width 16.3 % (11.0-16.0); White Blood Count 5.9 X10*3/uL (4.8-10.8)
--- NOTE | 2022-10-27 06:43 | PC.NURSE ---
Pt. Alert and oriented x3; SR on clinical research monitor. Afebrile and normotensive. Pt. completed RBC transfusion #2 last evening. Pt. upset last night stating This is too much blood to get all at once and do the Golytely prep . Pt. refused to received transfusion # 3 overnight. Hemoglobin 7.6 and Hematocrit 25.5 at 00: 25-reported to Dr. Mohan. Dr. Mohan notified. Attempted x3-4 overnight to talk to pt. re: receiving third unit. Pt. stated I just want to be left alaone for a while . Octreotide infusing continous IV. Pt. vomited x2 last evening and medicated with Zofran 4mg IV with good effect. Pt. did not start Golytely prep until 0015: pt. encouraged frquently on drinking prep. Pt. completed 1/2 the jug of Gloytely by 0600. Stool as of 0630 green and mushy/watery and becoming 'see through but not yet. Pt. received morphine jose alejandro AM for c/HAMMER with good effect.
[2022-10-27 06:54] LABS: Anion Gap 11 (12-20); Blood Urea Nitrogen 14 mg/dL (9-16); Calcium 8.6 mg/dL (8.4-10.2); Carbon Dioxide 33 mmol/L (22-29); Chloride 102 mmol/L (96-108); Creatinine Clr Calc Pharmacy 79.1; Estimated Glomerular Filt Rate > 60; Glucose Random 130 mg/dL (60-115); Sodium 142 mmol/L (135-145)
[2022-10-27 07:01] LABS: INTERNATIONAL NORM RATIO 2.1 (0.9-1.1); Prothrombin Time 26.1 SEC (11.1-13.3)
[2022-10-27 07:04] LABS: Partial Thromboplastin Time 28.2 SEC (26.0-36.4)
[2022-10-27] MEDS: Spironolactone 25 MG TABLET PO ×2 (07:51→23:12)
[2022-10-27] MEDS: Metoprolol Succinate ER 50 MG TAB.ER.24H PO (07:51)
[2022-10-27] MEDS: Lactulose 20 GM/30 ML SOLUTION 30 GM PO ×2 (07:52→23:16)
[2022-10-27] MEDS: Multivitamin TABLET 1 TAB PO (07:52)
[2022-10-27] MEDS: Furosemide 40 MG TABLET PO (07:52)
[2022-10-27] MEDS: 0.9 % Sodium Chloride Flush 3 ML SYRINGE IVFLUSH ×2 (07:54→23:17)
[2022-10-27 08:11] LABS: Glucose, Whole Blood 113 mg/dL (60-115)
--- NOTE | 2022-10-27 09:27 | HE.PHANOTE ---
RE: METHADONE VERIFICATION RECEIVED 27 DOSES OF TAKE HOME BOTTLES ON 10/11 FROM [facility]. 76 MG EACH.
[2022-10-27] MEDS: methADONE HCl 20 MG/2 ML ORAL.CONC 76 MG PO (10:11)
[2022-10-27] MEDS: ondansetron HCL 4 MG/2 ML VIAL IVPUSH (10:19)
--- NOTE | 2022-10-27 10:37 | MHC.CM.PN ---
IMM 10/27. Pt admitted with dx symptomatic blood loss anemia. Pt lives alone at home, is independent/self-care, employed, goes to [facility] for methadone. D/C plan to return home self-care and [facility]. Pt will transport herself home (car in lot). New HCP completed with pt, now on file. PCP: David Ortiz
[2022-10-27 11:54] LABS: Glucose, Whole Blood 138 mg/dL (60-115)
[2022-10-27] MEDS: Lidocaine HCl 1 % 20 ML VIAL 5 ML SUBCUT (14:05)
--- NOTE | 2022-10-27 14:06 | HO.ANESPROP2 ---
HPI - Anesthesia Eval Consult details Narrative: 51yo F for Upper Endoscopy and Colonoscopy Hep C contracted via IVDA. S/P treatment, but lead to cirrhosis. Per Heme, chronic liver cirrhosis, portal hypertension and splenomegaly presenting with some worsening of anemia and overall blood counts.? This happened in the setting of urosepsis and liver failure secondary to probable antibiotic use.? She was also on NIKIA inhibitor Tofactinib? which is a bone marrow suppressant and can cause anemia and pancytopenia.? This medication? has been discontinued. Methadone daily The patient is s/p right thoracentesis for 1.2L transudative fluid earlier this afternoon. No pigtail or chest tube. No albumin. CXR post procedure shows slightly improved aeration compared to this morning's film, but still a full 50% white out on the right side . Left side is clear. PMFSH Active Problems Active Problems: All Active Problems (Updated 10/26/22 @ 14:51 by Romana Garcia MD) Hepatic encephalopathy (Acute) Acute blood loss anemia (Acute) COPD (chronic obstructive pulmonary disease) (Acute) Ascites of liver (Acute) Hypertension, essential (Acute) Hypothyroidism (Acute) Liver cirrhosis (Acute) Iron deficiency anemia (Acute) Pleural effusion, right (Acute) Hydrothorax (Acute) Heme positive stool (Acute) Coagulopathy (Acute) Acute on chronic anemia (Acute) Ascites (Acute) Pleural effusion (Acute) Restlessness and agitation (Acute) Breast lump on left side at 11 o'clock position (Acute) Open wound of left breast (Acute) Left breast abscess (Acute) Encounter for routine gynecological examination (Acute) Edema of both ankles (Acute) Cellulitis (Acute) Pancytopenia (Chronic) Diabetic ulcer of left foot (Acute) Obesity due to excess calories (Acute) Anemia (Acute) Hospital discharge follow-up (Acute) E. coli sepsis (Acute) Pressure ulcer of foot, stage 1 (Acute) Acute anemia (Acute) Bacteremia, escherichia coli (Acute) Hepatitis (Acute) Water retention (Acute) Cystitis (Acute) Dysuria (Acute) Encounter for general adult medical examination with abnormal findings (Acute) Allergic rhinitis (Acute) Lipid disorder (Acute) Rosacea (Acute) Rheumatoid arthritis (Acute) Herpes simplex antibody positive (Acute) Diabetes 1.5, managed as type 2 (Acute) Crohn's disease (Acute) Past Medical History Medical History History of hepatitis C COPD (chronic obstructive pulmonary disease) Hydrothorax Pleural effusion, right Iron deficiency anemia Ascites of liver Liver cirrhosis Hypertension, essential Hypothyroidism Allergic rhinitis Lipid disorder Rosacea Rheumatoid arthritis 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 Other Mental health disorder Substance use disorder Family history of problems with anesthesia: No Surgical History Surgical History History of hernia repair History of bowel resection History of appendectomy History of Problems with Anesthesia: No Social History Social History Household Members: None Housing: Apartment Are you a primary child care aide to a significant other at home: No Do you presently have visiting nurse or other home services: No Alcohol intake: never Patient Tobacco Use Status: Current everyday Tobacco user Tobacco use type: Cigarette Cigarettes Per Day: 4 Years Smoked: 17 years old e-Cigarette/Vaping Use: Never Used service: No Current occupational status: employed Cognitive needs: No Hearing needs: No Vision needs: No Meds Allergies Allergy/AdvReac Type Severity Reaction Status Date / Time ciprofloxacin [Cipro] Allergy Unknown swelling Verified 10/26/22 09:11 of the throat , hives nitrofurantoin AdvReac Liver Verified 10/26/22 09:11 [From Macrobid] cirrhosis decompensation Active Medications: Current Medications Acetaminophen (Acetaminophen 325 Mg Tablet) 650 mg PO Q6H PRN PRN Reason: Pain, Mild (Pain Scale 1-3) Last Admin: 10/27/22 05:57 Dose: 650 mg Acyclovir (Acyclovir 200 Mg Capsule) 400 mg PO BEDTIME [facility] Last Admin: 10/26/22 19:57 Dose: 400 mg Dextrose (Dextrose 50 % 25 Gm/50 Ml Syringe) 25 gm IVPUSH Q15M PRN; Protocol PRN Reason: per Hypoglycemia Standing Ord. Docusate Sodium (Docusate Sodium 100 Mg Capsule) 100 mg PO DAILY PRN PRN Reason: Constipation Fluticasone Propionate (Fluticasone Propionate Nasal 16 Gm [place]) 1 spray NOSTRIL-B DAILY PRN PRN Reason: Allergy Symptoms Furosemide (Furosemide 40 Mg Tablet) 40 mg PO DAILY [facility]; Protocol Last Admin: 10/27/22 07:52 Dose: 40 mg Glucose (Glucose Gel 15 Gm Gel..Gram.) 15 gm PO Q15M PRN; Protocol PRN Reason: per Hypoglycemia Standing Ord. Octreotide Acetate 500 mcg/ (Sodium Chloride) 501 mls @ 50.1 mls/hr IVCONT .Q10H [facility] Last Admin: 10/27/22 12:20 Dose: Not Given Ceftriaxone Sodium 1 gm/ (Sodium Chloride) 50 mls @ 100 mls/hr IV Q24H [facility] Last Infusion: 10/26/22 19:15 Dose: Infused Insulin Human Lispro (Insulin Lispro 100 Unit/Ml 3 Ml Vial) 0 unit SUBCUT QIDACHS [facility]; Protocol Last Admin: 10/27/22 12:08 Dose: Not Given Lactulose (Lactulose 20 Gm/30 Ml Solution) 30 gm PO TID [facility] Last Admin: 10/27/22 07:52 Dose: 30 gm Levothyroxine Sodium (Levothyroxine Sodium 50 Mcg Tablet) 50 mcg PO DAILY@0600 [facility] Last Admin: 10/27/22 05:57 Dose: 50 mcg Lidocaine HCl (Lidocaine Hcl 1 % 20 Ml Vial) 5 ml SUBCUT ONCE ONE Stop: 10/27/22 14:05 Last Admin: 10/27/22 14:05 Dose: 5 ml Methadone HCl (Methadone Hcl 20 Mg/2 Ml Oral.Conc) 76 mg PO DAILY [facility] Last Admin: 10/27/22 10:11 Dose: 76 mg Metoprolol Succinate (Metoprolol Succinate Er 50 Mg Tab.Er.24h) 50 mg PO DAILY [facility]; Protocol Last Admin: 10/27/22 07:51 Dose: 50 mg Morphine Sulfate (Morphine Sulfate 4 Mg/Ml Cartridge) 2 mg IVPUSH Q4H PRN; Protocol PRN Reason: Pain, Severe (Pain Scale 7-10) Last Admin: 10/27/22 06:04 Dose: 2 mg Multivitamins/Vitamin C (Multivitamin Tablet) 1 tab PO DAILY [facility] Last Admin: 10/27/22 07:52 Dose: 1 tab Omeprazole (Omeprazole 20 Mg Capsule.) 20 mg PO BEDTIME [facility] Last Admin: 10/26/22 20:01 Dose: 20 mg Ondansetron HCl (Ondansetron Hcl 4 Mg/2 Ml Vial) 4 mg IVPUSH Q8H PRN PRN Reason: Nausea and Vomiting Last Admin: 10/27/22 10:19 Dose: 4 mg Sodium Chloride (0.9 % Sodium Chloride Flush 3 Ml Syringe) 3 ml IVFLUSH QSHIFT [facility] Last Admin: 10/27/22 07:54 Dose: 3 ml Spironolactone (Spironolactone 25 Mg Tablet) 25 mg PO BID [facility] Last Admin: 10/27/22 07:51 Dose: 25 mg Home Medications Medication Instructions Recorded Confirmed Last Taken Type methadone 10 mg/mL oral concentrate 76 mg PO DAILY 05/04/21 10/27/22 10/26/22 History levothyroxine 50 mcg tablet 50 mcg PO DAILY@0600 07/28/22 10/26/22 10/26/22 History multivitamin 1 tab PO DAILY 07/28/22 10/26/22 07/27/22 History acyclovir 400 mg tablet 400 mg PO BEDTIME 08/18/22 10/26/22 Unknown History amiloride 5 mg tablet 5 mg PO DAILY 10/26/22 10/26/22 Unknown History fluticasone propionate 50 1 spray intranasal DAILY PRN 10/26/22 10/26/22 Unknown History mcg/actuation nasal Allergy Symptoms spray,suspension (Flonase Allergy Relief) furosemide 40 mg tablet 40 mg PO DAILY 10/26/22 10/26/22 Unknown History Exam Exam Date and Time: October 27, 2022 1406 Height,Weight and Vital Signs: Height 5 ft 4 in Weight 83.6 kg Last Vital Signs Temp 97.2 F 10/27/22 11:49 Pulse 88 10/27/22 11:49 Resp 18 10/27/22 11:49 BP 130/78 10/27/22 11:49 Pulse Ox 96 10/27/22 11:49 O2 Del Method Oxymask 10/27/22 11:49 O2 Flow Rate 4 10/27/22 11:49 Pertinent Lab Results Pertinent Lab Results: Laboratory Tests 10/26/22 10/26/22 10/26/22 09:06 10:53 11:57 WBC 3.3 L RBC 1.78 L Hgb 4.6 L* Hct 16.1 L* MCV 90.4 MCH 25.8 L MCHC 28.6 L RDW 17.3 H Plt Count 93 L MPV 10.5 Immature Gran % (Auto) 0.3 Neut % (Auto) 60.3 Lymph % (Auto) 26.2 [place] % (Auto) 11.7 H Eos % (Auto) 1.2 Baso % (Auto) 0.3 Lymph # (Auto) 0.9 L [place] # (Auto) 0.4 Eos # (Auto) 0.0 Baso # (Auto) 0.0 Abs Immat Gran (auto) 0.01 Absolute Neuts (auto) 2.0 Absolute Nucleated RBC 0.000 Nucleated RBC % (auto) 0.0 PT 36.5 H INR 3.0 H APTT 29.7 D Sodium 142 Potassium 3.8 Chloride 105 Carbon Dioxide 32 H Anion Gap 9 L BUN 15 Creatinine 0.73 Estim Creat Clear Calc 94.3 Estimated GFR > 60 POC Glucose Random Glucose 74 Calcium 8.5 Magnesium 2.1 Total Bilirubin 1.1 H Direct Bilirubin 0.6 H AST 20 ALT 11 Alkaline Phosphatase 65 Ammonia Total Protein 5.8 L Albumin 2.4 L Stool Occult Blood POSITIVE Blood Type A Positive Antibody Screen NEGATIVE Crossmatch See Detail 10/26/22 10/26/22 10/26/22 16:11 16:12 17:16 WBC RBC Hgb 6.0 L* D Hct 20.7 L* D MCV MCH MCHC RDW Plt Count MPV Immature Gran % (Auto) Neut % (Auto) Lymph % (Auto) [place] % (Auto) Eos % (Auto) Baso % (Auto) Lymph # (Auto) [place] # (Auto) Eos # (Auto) Baso # (Auto) Abs Immat Gran (auto) Absolute Neuts (auto) Absolute Nucleated RBC Nucleated RBC % (auto) PT INR APTT Sodium Potassium Chloride Carbon Dioxide Anion Gap BUN Creatinine Estim Creat Clear Calc Estimated GFR POC Glucose 119 H Random Glucose Calcium Magnesium Total Bilirubin Direct Bilirubin AST ALT Alkaline Phosphatase Ammonia 65 H Total Protein Albumin Stool Occult Blood Blood Type Antibody Screen Crossmatch 10/26/22 10/26/22 10/27/22 20:19 21:02 00:25 WBC 4.8 RBC 2.73 L D Hgb 7.2 L 7.6 L Hct 24.8 L 25.5 L MCV 90.8 MCH 26.4 L MCHC 29.0 L RDW 16.1 H Plt Count 96 L MPV 10.8 Immature Gran % (Auto) Neut % (Auto) Lymph % (Auto) [place] % (Auto) Eos % (Auto) Baso % (Auto) Lymph # (Auto) [place] # (Auto) Eos # (Auto) Baso # (Auto) Abs Immat Gran (auto) Absolute Neuts (auto) Absolute Nucleated RBC 0.000 Nucleated RBC % (auto) 0.0 PT INR APTT Sodium Potassium Chloride Carbon Dioxide Anion Gap BUN Creatinine Estim Creat Clear Calc Estimated GFR POC Glucose 181 H Random Glucose Calcium Magnesium Total Bilirubin Direct Bilirubin AST ALT Alkaline Phosphatase Ammonia Total Protein Albumin Stool Occult Blood Blood Type Antibody Screen Crossmatch 10/27/22 10/27/22 10/27/22 06:22 07:25 11:47 WBC 5.9 RBC 2.74 L Hgb 7.3 L Hct 24.8 L MCV 90.5 MCH 26.6 L MCHC 29.4 L RDW 16.3 H Plt Count 96 L MPV 11.6 Immature Gran % (Auto) 0.3 Neut % (Auto) 68.6 Lymph % (Auto) 16.5 L [place] % (Auto) 12.6 H Eos % (Auto) 1.7 Baso % (Auto) 0.3 Lymph # (Auto) 1.0 L [place] # (Auto) 0.7 Eos # (Auto) 0.1 Baso # (Auto) 0.0 Abs Immat Gran (auto) 0.02 Absolute Neuts (auto) 4.0 Absolute Nucleated RBC 0.000 Nucleated RBC % (auto) 0.0 PT 26.1 H D INR 2.1 H APTT 28.2 Sodium 142 Potassium 4.0 Chloride 102 Carbon Dioxide 33 H Anion Gap 11 L BUN 14 Creatinine 0.87 Estim Creat Clear Calc 79.1 Estimated GFR > 60 POC Glucose 113 138 H Random Glucose 130 H Calcium 8.6 Magnesium Total Bilirubin Direct Bilirubin AST ALT Alkaline Phosphatase Ammonia Total Protein Albumin Stool Occult Blood Blood Type Antibody Screen Crossmatch Narrative Narrative: INR 2.1, virtually certain not correctable. Airway Mallampati Class: I TM Dist: >3cm Neck ROM: Full Denture: Upper Loose/Missing/Broken Teeth: Yes and Lower Heart: OK Lungs: As above. SpO2 94-97% on 4L oxymask; 82-86% on room air. 90 % on 4LNC. 92% w 6LNC. Added POM mask 15L to the NC, Sat went up to 100% in < 30 secs. Assessment and Plan Assessment Anesthesia Assessment: Anesthesia Plan Discussed Final Anesthetic Review Family History of Problems with Anesthesia: No History of Problems with Anesthesia: No NPO: Yes ASA Class: IV and Emergency Final Preanesthetic Review: No Changes in Pt Med Stat, Meds/Allgs Chart Reviewed, Consent Obtained/Reviewed and Anes Risks/Benef Reviewed Patient Risk: High Procedure Risk: Intermediate Anesthetic Plan Anesthetic Plan: MAC: and Agree w/ Assess. and Plan Disposition: Standard PACU
[2022-10-27 14:07] LABS: MN% 94.4 %; PMN% 5.6 %; WBC Pleural Fluid 0.081 X10*3/uL
[2022-10-27 14:09] LABS: RBC Pleural Fluid < 0.002 X10*6/uL
[2022-10-27 14:10] LABS: Glucose, Whole Blood 137 mg/dL (60-115)
--- NOTE | 2022-10-27 14:25 | P.PNIM_ITS ---
Subjective Subjective Date of Service: 10/27/22 Interval History: tolerated 2u pRBCs, awaiting 3rd unit no peg GI bleeding still has asterixis denies dyspnea started methadone this AM no lightheadedness Review of Systems Review of Systems: Yes all other systems are reviewed and are negative Physical Exam 2 Vital Signs: Vital Signs: Last Vital Signs Temp 99.2 F 10/27/22 14:16 Pulse 86 10/27/22 14:16 Resp 12 10/27/22 14:16 BP 114/67 10/27/22 14:16 Pulse Ox 94 10/27/22 14:22 O2 Del Method Nasal Cannula 10/27/22 14:22 O2 Flow Rate 4 10/27/22 14:22 BMI result Body Mass Index 31.6 Gen: in no acute distress HEENT: sclera anicteric, moist but very pale mucus membranes Neck: supple Lungs: diminished R side Heart: regular rate and rhythm, no murmurs Abd: soft, non-tender, non-distended Ext: no edema Skin: warm/well-perfused Neuro: alert and oriented x3, asterixis present Psych: appropriate affect Objective Data Active Medications Acetaminophen (Acetaminophen 325 Mg Tablet) 650 mg PO Q6H PRN PRN Reason: Pain, Mild (Pain Scale 1-3) Last Admin: 10/27/22 05:57 Dose: 650 mg Documented By: JESÚS Acyclovir (Acyclovir 200 Mg Capsule) 400 mg PO BEDTIME [facility] Last Admin: 10/26/22 19:57 Dose: 400 mg Documented By: JESÚS Dextrose (Dextrose 50 % 25 Gm/50 Ml Syringe) 25 gm IVPUSH Q15M PRN; Protocol PRN Reason: per Hypoglycemia Standing Ord. Docusate Sodium (Docusate Sodium 100 Mg Capsule) 100 mg PO DAILY PRN PRN Reason: Constipation Fluticasone Propionate (Fluticasone Propionate Nasal 16 Gm [place]) 1 spray NOSTRIL-B DAILY PRN PRN Reason: Allergy Symptoms Furosemide (Furosemide 40 Mg Tablet) 40 mg PO DAILY [facility]; Protocol Last Admin: 10/27/22 07:52 Dose: 40 mg Documented By: DOMINGO Glucose (Glucose Gel 15 Gm Gel..Gram.) 15 gm PO Q15M PRN; Protocol PRN Reason: per Hypoglycemia Standing Ord. Octreotide Acetate 500 mcg/ (Sodium Chloride) 501 mls @ 50.1 mls/hr IVCONT .Q10H [facility] Last Admin: 10/27/22 12:20 Dose: Not Given Documented By: DOMINGO Non-Admin Reason: prev bag Ceftriaxone Sodium 1 gm/ (Sodium Chloride) 50 mls @ 100 mls/hr IV Q24H [facility] Last Infusion: 10/26/22 19:15 Dose: Infused Documented By: JESÚS Insulin Human Lispro (Insulin Lispro 100 Unit/Ml 3 Ml Vial) 0 unit SUBCUT QIDACHS [facility]; Protocol Last Admin: 10/27/22 12:08 Dose: Not Given Documented By: DOMINGO Non-Admin Reason: NPO Lactulose (Lactulose 20 Gm/30 Ml Solution) 30 gm PO TID [facility] Last Admin: 10/27/22 07:52 Dose: 30 gm Documented By: DOMINGO Levothyroxine Sodium (Levothyroxine Sodium 50 Mcg Tablet) 50 mcg PO DAILY@0600 [facility] Last Admin: 10/27/22 05:57 Dose: 50 mcg Documented By: JESÚS Methadone HCl (Methadone Hcl 20 Mg/2 Ml Oral.Conc) 76 mg PO DAILY [facility] Last Admin: 10/27/22 10:11 Dose: 76 mg Documented By: DOMINGO Metoprolol Succinate (Metoprolol Succinate Er 50 Mg Tab.Er.24h) 50 mg PO DAILY [facility]; Protocol Last Admin: 10/27/22 07:51 Dose: 50 mg Documented By: DOMINGO Morphine Sulfate (Morphine Sulfate 4 Mg/Ml Cartridge) 2 mg IVPUSH Q4H PRN; Protocol PRN Reason: Pain, Severe (Pain Scale 7-10) Last Admin: 10/27/22 06:04 Dose: 2 mg Documented By: JESÚS Multivitamins/Vitamin C (Multivitamin Tablet) 1 tab PO DAILY [facility] Last Admin: 10/27/22 07:52 Dose: 1 tab Documented By: DOMINGO Omeprazole (Omeprazole 20 Mg Capsule.Dr) 20 mg PO BEDTIME [facility] Last Admin: 10/26/22 20:01 Dose: 20 mg Documented By: JESÚS Ondansetron HCl (Ondansetron Hcl 4 Mg/2 Ml Vial) 4 mg IVPUSH Q8H PRN PRN Reason: Nausea and Vomiting Last Admin: 10/27/22 10:19 Dose: 4 mg Documented By: DOMINGO Sodium Chloride (0.9 % Sodium Chloride Flush 3 Ml Syringe) 3 ml IVFLUSH QSHIFT [facility] Last Admin: 10/27/22 07:54 Dose: 3 ml Documented By: DOMINGO Spironolactone (Spironolactone 25 Mg Tablet) 25 mg PO BID [facility] Last Admin: 10/27/22 07:51 Dose: 25 mg Documented By: DOMINGO Labs 10/27/22 06:22 10/27/22 06:22 Labs: Laboratory Results - last 24 hr 10/26/22 10/26/22 10/26/22 09:06 16:12 17:16 MCV MCH MCHC RDW Plt Count MPV Immature Gran % (Auto) Neut % (Auto) Lymph % (Auto) [place] % (Auto) Eos % (Auto) Baso % (Auto) Lymph # (Auto) [place] # (Auto) Eos # (Auto) Baso # (Auto) Abs Immat Gran (auto) Absolute Neuts (auto) Absolute Nucleated RBC Nucleated RBC % (auto) PT INR APTT Anion Gap Estim Creat Clear Calc Estimated GFR POC Glucose 119 H Random Glucose Calcium Ammonia 65 H Pleural WBC Pleural RBC Blood Type A Positive Antibody Screen NEGATIVE Crossmatch See Detail 10/26/22 10/26/22 10/27/22 20:19 21:02 06:22 MCV 90.8 90.5 MCH 26.4 L 26.6 L MCHC 29.0 L 29.4 L RDW 16.1 H 16.3 H Plt Count 96 L 96 L MPV 10.8 11.6 Immature Gran % (Auto) 0.3 Neut % (Auto) 68.6 Lymph % (Auto) 16.5 L [place] % (Auto) 12.6 H Eos % (Auto) 1.7 Baso % (Auto) 0.3 Lymph # (Auto) 1.0 L [place] # (Auto) 0.7 Eos # (Auto) 0.1 Baso # (Auto) 0.0 Abs Immat Gran (auto) 0.02 Absolute Neuts (auto) 4.0 Absolute Nucleated RBC 0.000 0.000 Nucleated RBC % (auto) 0.0 0.0 PT 26.1 H D INR 2.1 H APTT 28.2 Anion Gap 11 L Estim Creat Clear Calc 79.1 Estimated GFR > 60 POC Glucose 181 H Random Glucose 130 H Calcium 8.6 Ammonia Pleural WBC Pleural RBC Blood Type Antibody Screen Crossmatch 10/27/22 10/27/22 10/27/22 07:25 11:47 13:15 MCV MCH MCHC RDW Plt Count MPV Immature Gran % (Auto) Neut % (Auto) Lymph % (Auto) [place] % (Auto) Eos % (Auto) Baso % (Auto) Lymph # (Auto) [place] # (Auto) Eos # (Auto) Baso # (Auto) Abs Immat Gran (auto) Absolute Neuts (auto) Absolute Nucleated RBC Nucleated RBC % (auto) PT INR APTT Anion Gap Estim Creat Clear Calc Estimated GFR POC Glucose 113 138 H Random Glucose Calcium Ammonia Pleural WBC 0.081 Pleural RBC < 0.002 Blood Type Antibody Screen Crossmatch 10/27/22 13:58 MCV MCH MCHC RDW Plt Count MPV Immature Gran % (Auto) Neut % (Auto) Lymph % (Auto) [place] % (Auto) Eos % (Auto) Baso % (Auto) Lymph # (Auto) [place] # (Auto) Eos # (Auto) Baso # (Auto) Abs Immat Gran (auto) Absolute Neuts (auto) Absolute Nucleated RBC Nucleated RBC % (auto) PT INR APTT Anion Gap Estim Creat Clear Calc Estimated GFR POC Glucose 137 H Random Glucose Calcium Ammonia Pleural WBC Pleural RBC Blood Type Antibody Screen Crossmatch Impressions Abdomen Ultrasound 10/26/22 15:58 IMPRESSION: Cirrhosis. Splenomegaly 15.8 cm consistent with portal hypertension. No ascites. Moderate right pleural effusion. No portal vein thrombosis. Doppler Study Ultrasound 10/26/22 15:58 IMPRESSION: Cirrhosis. Splenomegaly 15.8 cm consistent with portal hypertension. No ascites. Moderate right pleural effusion. No portal vein thrombosis. Chest X-Ray 10/27/22 13:47 IMPRESSION: Status post right thoracentesis with improvement in aeration. No pneumothorax. Assessment and Plan (1) Hepatic encephalopathy: Status: Acute Plan d2 52yo F with decompesnated HCV cirrhosis with hepatic hydrothorax, OUD on methadone, COPD, RA, Crohn's disease, hypothyroidism, DM2 sent in from [facility] where she was due to receive port for blood draws and infusions, found to be profoundly anemic with Hb 5 FOBT+ acute/subacute blood loss anemia due to GIB - transfused 2u PRBCs with IV furosemide, appropriate respone in H+H; refusing 3rd unit - continue IV PPI, IV octreotide, IV ceftriaxone - EGD + C-scope today after thoracetnesis - active T+S hepatic hydrothorax - diagnostic/therapeutic thoracentesis - continue spironolactone, furosemide coagulopathy due to cirrhosis - INR improved p vit K hepatic encephalopathy - lactulose/rifaximin HTN - continue metoprolol COPD without acute exac - continue home inhalers Crohn's disease - quiescent hypothyroidism - LT4 DM2 - correction-dose lispro VTE ppx - SCDs dispo - TBD In my clinical judgment, the patient requires continued inpatient hospitalization for the following reasons: endoscopy Time Spent With Patient Time: Total time managing care of this patient today __45__ minutes. Quality Stroke Does the patient have a stroke diagnosis?: No VTE Prior VTE?: No VTE Risk Level:: Medical - moderate - high VTE Device Contraindication: N/A - Device Ordered VTE Drug Contraindication: Treatment Not Indicated
--- NOTE | 2022-10-27 14:27 | PC.NURSE ---
enema never given from the floor nurse because the patient was taken to radiology for her thoracentesis.
--- NOTE | 2022-10-27 14:32 | PC.NURSE ---
Assumed care in am, pt refuses last unit of blood and to finish the rest of golytely despite education given. MD notified. Will continue to monitor.
[2022-10-27 14:34] LABS: BF Shift QC OK YES; Lymphocytes Pleural Fluid 5 %; Man Diluent Bkgrd OK YES; Monocytes Pleural Fluid 6 %; Neutrophils Pleural Fluid 1 %; Other Cells Plerual Fl 88 %
--- NOTE | 2022-10-27 14:38 | MHC.SHP ---
Pre-Procedural Eval Section A Date of Service: 10/27/22 The patient is an INPATIENT: Yes The History & Physical has been completed within 30 days and I have reviewed it.: Yes Section B Chief Complaint: symptomatic blood loss anemia Allergies: Allergies Allergy/AdvReac Type Severity Reaction Status Date / Time ciprofloxacin [Cipro] Allergy Unknown swelling Verified 10/26/22 09:11 of the throat , hives nitrofurantoin AdvReac Liver Verified 10/26/22 09:11 [From Macrobid] cirrhosis decompensation Plan Diagnosis/Plan: Unchanged I have reviewed the history and physical and performed a pertinent physical examination on my patient. No changes have occurred unless specified. Time Spent With Patient Time: Total time managing care of this patient today ____ minutes.
--- NOTE | 2022-10-27 14:53 | PC.NURSE ---
upon arrival from patients throacentesis her sandostatin was at the end of running out. i called pharmacy for another bag to hang up and called pharmacy back to look at the order and it was put on hold for unknown reason and i called the primary nurse and she stated it was on hold earlier but restarted the original order. patient is going into the the or for her scheduled upper endo and colonoscopy and md cordero verbalized to stop the medication for the moment to restart in the reocery area. spoke to groover and turner karla to speak to md gallego to see if she still wants the medication to be continued.
[2022-10-27 15:00] LABS: Lactate Dehydrogenase 191 U/L (122-220)
--- NOTE | 2022-10-27 15:09 | PC.NURSE ---
rechecked order in computer for sandostatin and the medication isnt due until this evening.
--- NOTE | 2022-10-27 15:50 | P.OP_ITS ---
Operative Note Operative Note Date of Service: 10/27/22 Narrative: Procedure:?Esophagogastroduodenoscopy and colonoscopy Endoscopist:?Romana Garcia MD Indication:?Acute on chronic anemia Anesthesia Provider:?Dr Fuentes Ceballos Anesthesia Type:?MAC Instrument:?Olympus GIF-H190, PCF-H190L EGD Procedure:?? The procedure, indications, preparation and potential complications were reviewed with the patient, who indicated understanding and gave written informed consent to proceed. A physical exam was performed. The endoscope was introduced through the mouth, and advanced to the second part of duodenum. The mucosa was carefully examined on slow withdrawal of the endoscope. There were no immediate complications. Patient tolerated the procedure well. EGD Findings:? * Esophagus:? Normal mucosa noted in the entire esophagus. The Z-line is at 38 cm. 2 columns of medium sized varices were noted in the lower esophagus without high risk stigmata. * Stomach:?Diffuse congestion and erythema in mosaic pattern consistent with portal hypertensive gastropathy was noted in the whole stomach. Random cold forceps biopsies were taken to r/o H pylori. * Duodenum:? Normal duodenal mucosa to the extent visualised. Cold forceps biopsies were taken from the duodenal bulb and second portion of the duodenum to r/o celiac sprue. Additional intervention: A [employer] multibander was installed on the tip of the scope in the usual fashion and one band was deployed. Complete decompression of both variceal columns was noted thereafter. Colonoscopy Procedure:? The patient was then turned for the colonoscopy. A digital rectal exam was performed which was abnormal for large hemorrhoids.? A distal attachment cap was affixed to the tip of the scope and the colonoscope was then inserted through the anus and advanced through the colon to the cecum at 85 cm. Appendiceal orifice and ileocecal valve were identified. Mucosa was carefully examined under high definition white light as the instrument was slowly withdrawn in a retrograde panoramic fashion. Retroflexion was performed in rectum. The procedure was not difficult. There were no immediate obvious complications. The quality of the prep was BBPS: 1+2+1 = inadequate Withdrawal time: 8 minutes Limitations: No limitation. Findings: Mucosa: Visualisation for adequate polyp detection was limited by copious stool. However no active bleeding or large mass was noted. Protruding lesions: * Large internal hemorrhoids with stigmata of recent bleeding. Impression: 1. Esophageal varices (banding) 2. Portal hypertensive gastropathy 3. Normal duodenum 4. Poor prep 5. No active bleeding 6. Internal and external hemorrhoids Recommendations:?? * Await pathology results. * Start carvedilol 3.125 BID for primary variceal hemorrhage prophylaxis as long as tolerated by HR and BP * Repeat colonoscopy colon cancer screening within a year * Can stop octreotide and switch PPI to once daily PO. * Will discuss small bowel evaluation as outpatient. * s/p thoracentesis today for R sided hydrothorax. Will likely need further optimization of diuretics once on stable dosing of carvedilol. * Pt should also get a port before getting discharged to allow for timely lab monitoring
[2022-10-27 17:24] LABS: HCV Log PCR <1.18 NOT DETECTED Log IU/mL (NOT DETECTED); HepC Viral Load <15 NOT DETECTED IU/mL (NOT DETECTED)
[2022-10-27] MEDS: cefTRIAXone sodium 1 GM in 0.9 % Sodium Chloride 50 ML IV (17:42)
[2022-10-27] MEDS: Octreotide Acetate 500 MCG in 0.9 % Sodium Chloride 500 ML 50 MCG IVCONT (18:04)
[2022-10-27 18:08] LABS: Glucose, Whole Blood 117 mg/dL (60-115)
--- NOTE | 2022-10-27 18:28 | PC.NURSE ---
Addendum entered by Gosia Tyler RN 10/27/22 18:51: Pt left the floor at 1230 to have a thoracentesis. Octreotide was infusing through central line. At 1336 i was notified by special medical intern that they were bringing the pt to preop for upper endo/ colonoscopy. [address] back [address] [facility] from PACU. Uneventful event per STENCIL TYPIST @ bedside. No medications infusing at the time of transfer. Pt laying on L side. STENCIL TYPIST left and came back with IV pump with ocreotide. @ 1750 when this RN returned to pts room to administer medications, found pt laying flat with blood/ blood clots underneath pts head, neck and back. Noticed that one end of central line was missing therefore repo pt on left side. BP 116/62, O2 sats 90 on 4L Oxy mask, R 19. No SOB. notified immediately. Dr Briceño at the bedside. No new order per MD. Nursing produce department supervisor and STENCIL TYPIST notified as well. Pt agree to have the blood transfusion that she refused earlier today. Will continue to monitor. Original Note: Pt left the floor at 1230 to have a thoracentesis. Octreotide was infusing through central line. At 1336 i was notified by special medical intern that they were bringing the pt to preop for upper endo/ colonoscopy. [address] [facility] from PACU. Uneventful event per STENCIL TYPIST @ bedside. No medications infusing at the time of transfer. Pt laying on L side. STENCIL TYPIST left and came back with IV pump with ocreotide. @ 1750 when this RN returned to pts room to administer medications, found pt laying flat with blood/ blood clots underneath pts head, neck and back. Noticed that one end of central line was missing and repo pt on left side. BP 116/62, R 19. notified immediately and @ bedside.
[2022-10-27 20:46] LABS: Glucose, Whole Blood 143 mg/dL (60-115)
[2022-10-27 22:42] LABS: Albumin Pleural Fluid 1.1 GM/DL; LDH Pleural Fluid 60 U/L
[2022-10-27] MEDS: Omeprazole 20 MG CAPSULE.DR PO (23:12)
[2022-10-27] MEDS: Acyclovir 200 MG CAPSULE 400 MG PO (23:13)
[2022-10-27] MEDS: diphenhydrAMINE HCL 50 MG/ML VIAL 25 MG IVPUSH (23:15)
[2022-10-28] VITALS (11 sets, daily range): BP systolic 106–134; BP diastolic 61–85; PULSE 71–85; RESP 16–20; TEMP 36.5–37.5; O2SAT 93–97
[2022-10-28] MEDS: Octreotide Acetate 500 MCG in 0.9 % Sodium Chloride 500 ML 50.1 MCG IVCONT (04:54)
[2022-10-28] MEDS: Levothyroxine Sodium 50 MCG TABLET PO (06:15)
[2022-10-28 06:51] LABS: Hematocrit 24.5 % (37.0-47.0); Hemoglobin 7.4 g/dl (12.0-16.0); Mean Corpuscular HGB Conc 30.2 g/dl (31.0-35.0); Mean Corpuscular Hemoglobin 28.5 pg (27.0-33.0); Mean Corpuscular Volume 94.2 fL (80.0-98.0); Mean Platelet Volume 11.1 fL (9.4-12.3); NRBC Pct Auto 0.4 /100WBC (0.0-0.2); Red Cell Distribution Width 16.1 % (11.0-16.0); White Blood Count 5.6 X10*3/uL (4.8-10.8)
[2022-10-28 06:55] LABS: INTERNATIONAL NORM RATIO 2.2 (0.9-1.1); Platelet Count 71 X10*3/uL (160-400); Prothrombin Time 27.3 SEC (11.1-13.3)
[2022-10-28 07:09] LABS: Alanine Aminotransferase 11 U/L (0-31); Albumin Level 2.4 g/dL (3.5-5.0); Alkaline Phosphatase 62 U/L (39-117); Anion Gap 6 (12-20); Aspartate Amino Transferase 17 U/L (5-31); Blood Urea Nitrogen 11 mg/dL (9-16); Calcium 8.4 mg/dL (8.4-10.2); Carbon Dioxide 37 mmol/L (22-29); Chloride 101 mmol/L (96-108); Creatinine Clr Calc Pharmacy 88.2; Estimated Glomerular Filt Rate > 60; Glucose Random 141 mg/dL (60-115); Magnesium 1.9 mg/dL (1.6-2.6); Potassium 4.3 mmol/L (3.3-5.1); Sodium 140 mmol/L (135-145); Total Protein 5.8 g/dL (6.5-8.0)
--- NOTE | 2022-10-28 07:25 | PC.NURSE ---
Pt. rested in bed last evening. Pt. upset last evening and asking for something to eat . Tigertexted Dr. Mohan, diet ordered. Pt. slept from 1999 until 2314 and then awake, took scheduled meds and received Tylenol and IV Benadryl as ordered prior to #3 unit of RBC (total units recieved). Pt. tolerated well. Right TLC IC in place. Camera in use and bed alarm. VSS. SR on telemetry.
[2022-10-28 07:36] LABS: Glucose, Whole Blood 136 mg/dL (60-115)
[2022-10-28] MEDS: methADONE HCl 20 MG/2 ML ORAL.CONC 76 MG PO (08:36)
[2022-10-28] MEDS: carvediloL 3.125 MG TABLET PO ×2 (08:36→20:52)
[2022-10-28] MEDS: Multivitamin TABLET 1 TAB PO (08:36)
[2022-10-28] MEDS: rifAXIMin 550 MG TABLET PO ×2 (08:36→20:52)
[2022-10-28] MEDS: Furosemide 40 MG TABLET PO (08:36)
[2022-10-28] MEDS: Spironolactone 25 MG TABLET PO ×2 (08:36→20:52)
[2022-10-28] MEDS: Lactulose 20 GM/30 ML SOLUTION 30 GM PO ×2 (08:37→20:51)
[2022-10-28] MEDS: 0.9 % Sodium Chloride Flush 3 ML SYRINGE IVFLUSH ×2 (08:38→20:53)
--- NOTE | 2022-10-28 08:42 | P.CONGS_ITS ---
History of Present Illness Consult details Consult date: 10/27/22 Narrative: Patient was seen in consultation by me for IV access/Port-A-Cath placement. Patient is known to me from the past from a tube thoracostomy placement several months ago for a right lung white out. Chart was reviewed patient evaluated. 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 Patient presents with profound anemia. Being worked up for GI source. Patient also requires IV access for long-term IV therapy/care. She has very difficult peripheral access. 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 Other Mental health disorder Substance use disorder Surgical History Surgical History History of hernia repair History of bowel resection History of appendectomy Social History Social History Household Members: None Housing: Apartment Are you a primary wound care rn to a significant other at home: No Do you presently have visiting nurse or other home services: No Alcohol intake: never Patient Tobacco Use Status: Current everyday Tobacco user Tobacco use type: Cigarette Cigarettes Per Day: 4 Years Smoked: 17 years old e-Cigarette/Vaping Use: Never Used service: No Current occupational status: employed Cognitive needs: No Hearing needs: No Vision needs: No Meds Allergies Allergy/AdvReac Type Severity Reaction Status Date / Time ciprofloxacin [Cipro] Allergy Unknown swelling Verified 10/26/22 09:11 of the throat , hives nitrofurantoin AdvReac Liver Verified 10/26/22 09:11 [From Macrobid] cirrhosis decompensation Active Medications: Current Medications Acetaminophen (Acetaminophen 325 Mg Tablet) 650 mg PO Q6H PRN PRN Reason: Pain, Mild (Pain Scale 1-3) Last Admin: 10/27/22 23:12 Dose: 650 mg Acyclovir (Acyclovir 200 Mg Capsule) 400 mg PO BEDTIME [facility] Last Admin: 10/27/22 23:13 Dose: 400 mg Carvedilol (Carvedilol 3.125 Mg Tablet) 3.125 mg PO BID [facility]; Protocol Last Admin: 10/28/22 08:36 Dose: 3.125 mg Dextrose (Dextrose 50 % 25 Gm/50 Ml Syringe) 25 gm IVPUSH Q15M PRN; Protocol PRN Reason: per Hypoglycemia Standing Ord. Docusate Sodium (Docusate Sodium 100 Mg Capsule) 100 mg PO DAILY PRN PRN Reason: Constipation Fentanyl (Fentanyl Citrate/Pf 100 Mcg/2 Ml Vial) 50 mcg IVPUSH Q5M PRN; Protocol PRN Reason: Pain, Severe (Pain Scale 7-10) Fluticasone Propionate (Fluticasone Propionate Nasal 16 Gm Slinger) 1 spray NOSTRIL-B DAILY PRN PRN Reason: Allergy Symptoms Furosemide (Furosemide 40 Mg Tablet) 40 mg PO DAILY [facility]; Protocol Last Admin: 10/28/22 08:36 Dose: 40 mg Glucose (Glucose Gel 15 Gm Gel..Gram.) 15 gm PO Q15M PRN; Protocol PRN Reason: per Hypoglycemia Standing Ord. Ceftriaxone Sodium 1 gm/ (Sodium Chloride) 50 mls @ 100 mls/hr IV Q24H [facility] Last Infusion: 10/27/22 19:34 Dose: Infused Insulin Human Lispro (Insulin Lispro 100 Unit/Ml 3 Ml Vial) 0 unit SUBCUT QIDACHS [facility]; Protocol Last Admin: 10/28/22 07:45 Dose: Not Given Lactulose (Lactulose 20 Gm/30 Ml Solution) 30 gm PO TID [facility] Last Admin: 10/28/22 08:37 Dose: 30 gm Levothyroxine Sodium (Levothyroxine Sodium 50 Mcg Tablet) 50 mcg PO DAILY@0600 [facility] Last Admin: 10/28/22 06:15 Dose: 50 mcg Methadone HCl (Methadone Hcl 20 Mg/2 Ml Oral.Conc) 76 mg PO DAILY [facility] Last Admin: 10/28/22 08:36 Dose: 76 mg Morphine Sulfate (Morphine Sulfate 4 Mg/Ml Cartridge) 2 mg IVPUSH Q4H PRN; Protocol PRN Reason: Pain, Severe (Pain Scale 7-10) Last Admin: 10/27/22 06:04 Dose: 2 mg Multivitamins/Vitamin C (Multivitamin Tablet) 1 tab PO DAILY [facility] Last Admin: 10/28/22 08:36 Dose: 1 tab Omeprazole (Omeprazole 20 Mg Capsule.Dr) 20 mg PO BEDTIME [facility] Last Admin: 10/27/22 23:12 Dose: 20 mg Ondansetron HCl (Ondansetron Hcl 4 Mg/2 Ml Vial) 4 mg IVPUSH Q8H PRN PRN Reason: Nausea and Vomiting Last Admin: 10/27/22 10:19 Dose: 4 mg Ondansetron HCl (Ondansetron Hcl 4 Mg/2 Ml Vial) 4 mg IVPUSH ONCE PRN PRN Reason: Nausea and Vomiting Rifaximin (Rifaximin 550 Mg Tablet) 550 mg PO BID [facility] Last Admin: 10/28/22 08:36 Dose: 550 mg Sodium Chloride (0.9 % Sodium Chloride Flush 3 Ml Syringe) [facility] Last Admin: 10/28/22 08:38 Dose: 3 ml Spironolactone (Spironolactone 25 Mg Tablet) 25 mg PO BID [facility] Last Admin: 10/28/22 08:36 Dose: 25 mg Home Medications Medication Instructions Recorded Confirmed Last Taken Type methadone 10 mg/mL oral concentrate 76 mg PO DAILY 05/04/21 10/27/22 10/26/22 History levothyroxine 50 mcg tablet 50 mcg PO DAILY@0600 07/28/22 10/26/22 10/26/22 History multivitamin 1 tab PO DAILY 07/28/22 10/26/22 07/27/22 History acyclovir 400 mg tablet 400 mg PO BEDTIME 08/18/22 10/26/22 Unknown History amiloride 5 mg tablet 5 mg PO DAILY 10/26/22 10/26/22 Unknown History fluticasone propionate 50 1 spray intranasal DAILY PRN 10/26/22 10/26/22 Unknown History mcg/actuation nasal Allergy Symptoms spray,suspension (Flonase Allergy Relief) furosemide 40 mg tablet 40 mg PO DAILY 10/26/22 10/26/22 Unknown History Physical Exam 2 Vital Signs: Vital Signs: Last Vital Signs Temp 98.0 F 10/28/22 07:23 Pulse 85 10/28/22 07:23 Resp 20 10/28/22 07:23 BP 122/70 10/28/22 07:23 Pulse Ox 95 10/28/22 07:23 O2 Del Method Nasal Cannula 10/28/22 07:23 O2 Flow Rate 2.5 10/28/22 07:23 BMI result Body Mass Index 31.6 Chest: Other: Chest breath sounds bilaterally, diminished right base, HS 1 in 2 GI: Other: Abdomen corpulent, soft, benign Results Labs 10/28/22 06:36 10/28/22 06:36 Labs: Abnormal lab results 10/26/22 10/27/22 10/27/22 Range/Units 09:06 11:47 13:58 RBC (4.20-5.50) X10*6/uL Hgb (12.0-16.0) g/dl Hct (37.0-47.0) % MCHC (31.0-35.0) g/dl RDW (11.0-16.0) % Plt Count (160-400) X10*3/uL Absolute Nucleated RBC (0.0-0.012) X10*3/uL Nucleated RBC % (auto) (0.0-0.2) /100WBC PT (11.1-13.3) SEC INR (0.9-1.1) Carbon Dioxide (22-29) mmol/L Anion Gap (12-20) POC Glucose 138 H 137 H (60-115) mg/dL Random Glucose (60-115) mg/dL Total Bilirubin (0.0-1.0) mg/dL Total Protein (6.5-8.0) g/dL Albumin (3.5-5.0) g/dL Crossmatch See Detail 10/27/22 10/27/22 10/28/22 Range/Units 17:50 19:48 06:36 RBC 2.60 L (4.20-5.50) X10*6/uL Hgb 7.4 L (12.0-16.0) g/dl Hct 24.5 L (37.0-47.0) % MCHC 30.2 L (31.0-35.0) g/dl RDW 16.1 H (11.0-16.0) % Plt Count 71 L D (160-400) X10*3/uL Absolute Nucleated RBC 0.020 H (0.0-0.012) X10*3/uL Nucleated RBC % (auto) 0.4 H (0.0-0.2) /100WBC PT 27.3 H (11.1-13.3) SEC INR 2.2 H (0.9-1.1) Carbon Dioxide 37 H (22-29) mmol/L Anion Gap 6 L (12-20) POC Glucose 117 H 143 H (60-115) mg/dL Random Glucose 141 H (60-115) mg/dL Total Bilirubin 2.0 H (0.0-1.0) mg/dL Total Protein 5.8 L (6.5-8.0) g/dL Albumin 2.4 L (3.5-5.0) g/dL Crossmatch 10/28/22 Range/Units 07:14 RBC (4.20-5.50) X10*6/uL Hgb (12.0-16.0) g/dl Hct (37.0-47.0) % MCHC (31.0-35.0) g/dl RDW (11.0-16.0) % Plt Count (160-400) X10*3/uL Absolute Nucleated RBC (0.0-0.012) X10*3/uL Nucleated RBC % (auto) (0.0-0.2) /100WBC PT (11.1-13.3) SEC INR (0.9-1.1) Carbon Dioxide (22-29) mmol/L Anion Gap (12-20) POC Glucose 136 H (60-115) mg/dL Random Glucose (60-115) mg/dL Total Bilirubin (0.0-1.0) mg/dL Total Protein (6.5-8.0) g/dL Albumin (3.5-5.0) g/dL Crossmatch Short CBC 10/28/22 Range/Units 06:36 WBC 5.6 (4.8-10.8) X10*3/uL Hgb 7.4 L (12.0-16.0) g/dl Hct 24.5 L (37.0-47.0) % Plt Count 71 L D (160-400) X10*3/uL BMP 10/28/22 06:36 Sodium 140 Potassium 4.3 Chloride 101 Carbon Dioxide 37 H BUN 11 Creatinine 0.78 Calcium 8.4 Liver Function 10/28/22 Range/Units 06:36 Total Bilirubin 2.0 H (0.0-1.0) mg/dL AST 17 (5-31) U/L ALT 11 (0-31) U/L Alkaline Phosphatase 62 (39-117) U/L Albumin 2.4 L (3.5-5.0) g/dL All other labs normal. Assessment and Plan (1) Admission for fitting of Port-A-Cath: Status: Acute Plan Discussed with the patient risks, benefits, alternatives of Port-A-Cath placement which included but not limited to bleeding, infection, pneumothorax, numbness, pain, scarring, catheter migration the patient wishes to proceed. All questions were answered. Arrangements will be made for this for 10/29. Time Spent With Patient Time: Total time managing care of this patient today ____ minutes. Procedures Date of Service Date of Service: 10/28/22
[2022-10-28] MEDS: Morphine Sulfate 4 MG/ML CARTRIDGE IVPUSH ×2 (11:08→20:53)
[2022-10-28] MEDS: Acetaminophen 325 MG TABLET 650 MG PO ×2 (11:08→19:39)
[2022-10-28 11:57] LABS: Glucose, Whole Blood 178 mg/dL (60-115)
--- NOTE | 2022-10-28 11:57 | P.PNIM_ITS ---
Subjective Subjective Date of Service: 10/28/22 Interval History: c/o back pain and headache no lightheadedness s/p thoracentesis and EGD/C-scope yesterday no peg GI bleeding bleeding from unclamped central line yesterday, H+H stable Review of Systems Review of Systems: Yes all other systems are reviewed and are negative Physical Exam 2 Vital Signs: Vital Signs: Last Vital Signs Temp 98.9 F 10/28/22 11:49 Pulse 78 10/28/22 11:49 Resp 20 10/28/22 11:49 BP 127/72 10/28/22 11:49 Pulse Ox 96 10/28/22 11:49 O2 Del Method Nasal Cannula 10/28/22 11:49 O2 Flow Rate 2.5 10/28/22 11:49 BMI result Body Mass Index 31.6 Gen: in no acute distress HEENT: sclera anicteric, moist but very pale mucus membranes Neck: supple Lungs: diminished R side Heart: regular rate and rhythm, no murmurs Abd: soft, non-tender, non-distended Ext: no edema Skin: warm/well-perfused Neuro: alert and oriented x3, asterixis present Psych: appropriate affect Objective Data Active Medications Acetaminophen (Acetaminophen 325 Mg Tablet) 650 mg PO Q6H PRN PRN Reason: Pain, Mild (Pain Scale 1-3) Last Admin: 10/28/22 11:08 Dose: 650 mg Documented By: MAXIMO Acyclovir (Acyclovir 200 Mg Capsule) 400 mg PO BEDTIME [facility] Last Admin: 10/27/22 23:13 Dose: 400 mg Documented By: JESÚS Carvedilol (Carvedilol 3.125 Mg Tablet) 3.125 mg PO BID [facility]; Protocol Last Admin: 10/28/22 08:36 Dose: 3.125 mg Documented By: MAXIMO Dextrose (Dextrose 50 % 25 Gm/50 Ml Syringe) 25 gm IVPUSH Q15M PRN; Protocol PRN Reason: per Hypoglycemia Standing Ord. Docusate Sodium (Docusate Sodium 100 Mg Capsule) 100 mg PO DAILY PRN PRN Reason: Constipation Fentanyl (Fentanyl Citrate/Pf 100 Mcg/2 Ml Vial) 50 mcg IVPUSH Q5M PRN; Protocol PRN Reason: Pain, Severe (Pain Scale 7-10) Fluticasone Propionate (Fluticasone Propionate Nasal 16 Gm Chunky) 1 spray NOSTRIL-B DAILY PRN PRN Reason: Allergy Symptoms Furosemide (Furosemide 40 Mg Tablet) 40 mg PO DAILY [facility]; Protocol Last Admin: 10/28/22 08:36 Dose: 40 mg Documented By: MAXIMO Glucose (Glucose Gel 15 Gm Gel..Gram.) 15 gm PO Q15M PRN; Protocol PRN Reason: per Hypoglycemia Standing Ord. Ceftriaxone Sodium 1 gm/ (Sodium Chloride) 50 mls @ 100 mls/hr IV Q24H [facility] Last Infusion: 10/27/22 19:34 Dose: Infused Documented By: DOMINGO Insulin Human Lispro (Insulin Lispro 100 Unit/Ml 3 Ml Vial) 0 unit SUBCUT QIDACHS [facility]; Protocol Last Admin: 10/28/22 07:45 Dose: Not Given Documented By: MAXIMO Non-Admin Reason: No Insulin Coverage Lactulose (Lactulose 20 Gm/30 Ml Solution) 30 gm PO TID [facility] Last Admin: 10/28/22 08:37 Dose: 30 gm Documented By: MAXIMO Levothyroxine Sodium (Levothyroxine Sodium 50 Mcg Tablet) 50 mcg PO DAILY@0600 [facility] Last Admin: 10/28/22 06:15 Dose: 50 mcg Documented By: JESÚS Methadone HCl (Methadone Hcl 20 Mg/2 Ml Oral.Conc) 76 mg PO DAILY [facility] Last Admin: 10/28/22 08:36 Dose: 76 mg Documented By: MAXIMO Morphine Sulfate (Morphine Sulfate 4 Mg/Ml Cartridge) 4 mg IVPUSH Q4H PRN; Protocol PRN Reason: Pain, Severe (Pain Scale 7-10) Last Admin: 10/28/22 11:08 Dose: 4 mg Documented By: MAXIMO Multivitamins/Vitamin C (Multivitamin Tablet) 1 tab PO DAILY [facility] Last Admin: 10/28/22 08:36 Dose: 1 tab Documented By: MAXIMO Omeprazole (Omeprazole 20 Mg Capsule.) 20 mg PO BEDTIME [facility] Last Admin: 10/27/22 23:12 Dose: 20 mg Documented By: JESÚS Ondansetron HCl (Ondansetron Hcl 4 Mg/2 Ml Vial) 4 mg IVPUSH Q8H PRN PRN Reason: Nausea and Vomiting Last Admin: 10/27/22 10:19 Dose: 4 mg Documented By: CTORRJonathan Ondansetron HCl (Ondansetron Hcl 4 Mg/2 Ml Vial) 4 mg IVPUSH ONCE PRN PRN Reason: Nausea and Vomiting Rifaximin (Rifaximin 550 Mg Tablet) 550 mg PO BID [facility] Last Admin: 10/28/22 08:36 Dose: 550 mg Documented By: MAXIMO Sodium Chloride (0.9 % Sodium Chloride Flush 3 Ml Syringe) 3 ml IVFLUSH QSHIFT [facility] Last Admin: 10/28/22 08:38 Dose: 3 ml Documented By: MAXIMO Spironolactone (Spironolactone 25 Mg Tablet) 25 mg PO BID [facility] Last Admin: 10/28/22 08:36 Dose: 25 mg Documented By: MAXIMO Labs 10/28/22 06:36 10/28/22 06:36 Labs: Laboratory Results - last 24 hr 10/26/22 10/26/22 10/27/22 09:06 16:11 06:22 MCV MCH MCHC RDW Plt Count MPV Absolute Nucleated RBC Nucleated RBC % (auto) PT INR Anion Gap Estim Creat Clear Calc Estimated GFR POC Glucose Random Glucose Calcium Magnesium Total Bilirubin AST ALT Alkaline Phosphatase Lactate Dehydrogenase 191 Total Protein Albumin Pleural WBC Pleural RBC Pleural Neutrophils Pleural Lymphocytes Pleural Monocytes Pleural Other Cells Pleural Albumin Pleural LDH Hep C Viral Load <15 NOT DETECTED Hep C Viral Load Log <1.18 NOT DETECTED Blood Type A Positive Antibody Screen NEGATIVE Crossmatch See Detail 10/27/22 10/27/22 10/27/22 13:15 13:58 17:50 MCV MCH MCHC RDW Plt Count MPV Absolute Nucleated RBC Nucleated RBC % (auto) PT INR Anion Gap Estim Creat Clear Calc Estimated GFR POC Glucose 137 H 117 H Random Glucose Calcium Magnesium Total Bilirubin AST ALT Alkaline Phosphatase Lactate Dehydrogenase Total Protein Albumin Pleural WBC 0.081 Pleural RBC < 0.002 Pleural Neutrophils 1 Pleural Lymphocytes 5 Pleural Monocytes 6 Pleural Other Cells 88 Pleural Albumin 1.1 Pleural LDH 60 Hep C Viral Load Hep C Viral Load Log Blood Type Antibody Screen Crossmatch 10/27/22 10/28/22 10/28/22 19:48 06:36 07:14 MCV 94.2 MCH 28.5 MCHC 30.2 L RDW 16.1 H Plt Count 71 L D MPV 11.1 Absolute Nucleated RBC 0.020 H Nucleated RBC % (auto) 0.4 H PT 27.3 H INR 2.2 H Anion Gap 6 L Estim Creat Clear Calc 88.2 Estimated GFR > 60 POC Glucose 143 H 136 H Random Glucose 141 H Calcium 8.4 Magnesium 1.9 Total Bilirubin 2.0 H AST 17 ALT 11 Alkaline Phosphatase 62 Lactate Dehydrogenase Total Protein 5.8 L Albumin 2.4 L Pleural WBC Pleural RBC Pleural Neutrophils Pleural Lymphocytes Pleural Monocytes Pleural Other Cells Pleural Albumin Pleural LDH Hep C Viral Load Hep C Viral Load Log Blood Type Antibody Screen Crossmatch Microbiology Microbiology Results: Microbiology 10/27/22 13:15 Gram Stain - Final Thoracentesis Fluid Assessment and Plan (1) Hepatic encephalopathy: Status: Acute Plan d3 52yo F with decompesnated HCV cirrhosis with hepatic hydrothorax, OUD on methadone, COPD, RA, Crohn's disease, hypothyroidism, DM2 sent in from [facility] where she was due to receive port for blood draws and infusions, found to be profoundly anemic with Hb 5 FOBT+ acute/subacute blood loss anemia due to GIB - transfused 2u PRBCs with IV furosemide, appropriate respone in H+H; refused 3rd unit - EGD + C-scope by Dr Garcia 10/27: EGD Findings:? * Esophagus:? Normal mucosa noted in the entire esophagus. The Z-line is at 38 cm. 2 columns of medium sized varices were noted in the lower esophagus without high risk stigmata. * Stomach:?Diffuse congestion and erythema in mosaic pattern consistent with portal hypertensive gastropathy was noted in the whole stomach. Random cold forceps biopsies were taken to r/o H pylori. * Duodenum:? Normal duodenal mucosa to the extent visualised. Cold forceps biopsies were taken from the duodenal bulb and second portion of the duodenum to r/o celiac sprue. Additional intervention: A [employer] multibander was installed on the tip of the scope in the usual fashion and one band was deployed. Complete decompression of both variceal columns was noted thereafter. Colonoscopy Procedure:? Findings: Mucosa: Visualisation for adequate polyp detection was limited by copious stool. However no active bleeding or large mass was noted. Protruding lesions: * Large internal hemorrhoids with stigmata of recent bleeding. - IV->PO PPI, d/c octreotide, continue IV ceftriaxone for SBP ppx - f/u biopsy results - outpt: discuss small bowel evaluation, repeat C-scope in 1yr - Thoracic Surgery Dr Arboleda to place port tomorrow hepatic hydrothorax - diagnostic/therapeutic thoracentesis with removal of 1200 mL on 10/27, appears transudative; follow cultures though doubt infection - continue spironolactone, furosemide coagulopathy due to cirrhosis - INR improved p vit K hepatic encephalopathy - lactulose/rifaximin HTN - continue metoprolol COPD without acute exac - continue home inhalers Crohn's disease - quiescent hypothyroidism - LT4 DM2 - correction-dose lispro VTE ppx - SCDs dispo - PT evaluation In my clinical judgment, the patient requires continued inpatient hospitalization for the following reasons: port placement Time Spent With Patient Time: Total time managing care of this patient today __45__ minutes. Quality Stroke Does the patient have a stroke diagnosis?: No VTE Prior VTE?: No VTE Risk Level:: Medical - moderate - high VTE Device Contraindication: N/A - Device Ordered VTE Drug Contraindication: Treatment Not Indicated
[2022-10-28] MEDS: Insulin Lispro 100 UNIT/ML 3 ML VIAL SUBCUT ×2 (12:30→17:28)
--- NOTE | 2022-10-28 13:41 | HO.POSTANES ---
Post Anesthesia Evaluation Post Anesthesia Evaluation Date of Service: 10/27/22 Vital Signs: Vital Signs Temp Pulse Resp BP Pulse Ox O2 Del Method O2 Flow Rate 10/28/22 11:49 98.9 F 78 20 127/72 96 Nasal Cannula 2.5 10/28/22 07:23 98.0 F 85 20 122/70 95 Nasal Cannula 2.5 10/28/22 03:44 98.3 F 74 16 106/65 10/28/22 03:16 98.0 F 77 18 120/65 96 Nasal Cannula 2 Anesthesia: Monitored Mental Status: Awake Pain Control: Satisfactory Nausea/Vomiting: None Hydration: Adequate Anesthesia-Related Issues: No Anes. Related Issues
[2022-10-28 16:01] LABS: Glucose, Whole Blood 177 mg/dL (60-115)
[2022-10-28] MEDS: cefTRIAXone sodium 1 GM in 0.9 % Sodium Chloride 50 ML IV (17:29)
[2022-10-28 20:14] LABS: Glucose, Whole Blood 159 mg/dL (60-115)
[2022-10-28] MEDS: Acyclovir 200 MG CAPSULE 400 MG PO (20:52)
[2022-10-28] MEDS: Omeprazole 20 MG CAPSULE.DR PO (20:53)
[2022-10-29] VITALS (13 sets, daily range): BP systolic 113–143; BP diastolic 58–78; PULSE 60–89; RESP 8–20; TEMP 36.6–38; O2SAT 93–100
[2022-10-29] MEDS: Levothyroxine Sodium 50 MCG TABLET PO (05:12)
[2022-10-29] MEDS: ondansetron HCL 4 MG/2 ML VIAL IVPUSH ×2 (07:28→08:50)
[2022-10-29] MEDS: Morphine Sulfate 4 MG/ML CARTRIDGE IVPUSH ×2 (07:28→19:52)
[2022-10-29] MEDS: 0.9 % Sodium Chloride Flush 3 ML SYRINGE IVFLUSH ×2 (07:29→19:52)
[2022-10-29 07:30] LABS: Hematocrit 23.8 % (37.0-47.0); Mean Corpuscular HGB Conc 29.4 g/dl (31.0-35.0); Mean Corpuscular Hemoglobin 27.9 pg (27.0-33.0); Mean Corpuscular Volume 94.8 fL (80.0-98.0); Mean Platelet Volume 11.8 fL (9.4-12.3); Red Blood Count 2.51 X10*6/uL (4.20-5.50); White Blood Count 5.2 X10*3/uL (4.8-10.8)
[2022-10-29 07:42] LABS: Platelet Count 59 X10*3/uL (160-400)
[2022-10-29 07:43] LABS: Alanine Aminotransferase 12 U/L (0-31); Albumin Level 2.5 g/dL (3.5-5.0); Alkaline Phosphatase 57 U/L (39-117); Anion Gap 11 (12-20); Aspartate Amino Transferase 18 U/L (5-31); Bilirubin Total 1.2 mg/dL (0.0-1.0); Blood Urea Nitrogen 11 mg/dL (9-16); Calcium 8.6 mg/dL (8.4-10.2); Carbon Dioxide 35 mmol/L (22-29); Chloride 101 mmol/L (96-108); Creatinine Clr Calc Pharmacy 94.3; Estimated Glomerular Filt Rate > 60; Glucose Random 147 mg/dL (60-115); Potassium 4.1 mmol/L (3.3-5.1); Sodium 143 mmol/L (135-145); Total Protein 5.9 g/dL (6.5-8.0)
[2022-10-29 07:54] LABS: INTERNATIONAL NORM RATIO 2.3 (0.9-1.1); Prothrombin Time 28.2 SEC (11.1-13.3)
[2022-10-29 07:57] LABS: Glucose, Whole Blood 135 mg/dL (60-115)
[2022-10-29] MEDS: carvediloL 3.125 MG TABLET PO ×2 (08:18→19:51)
[2022-10-29] MEDS: Spironolactone 25 MG TABLET PO ×2 (08:19→19:51)
[2022-10-29] MEDS: Lactulose 20 GM/30 ML SOLUTION 30 GM PO ×2 (08:19→19:52)
[2022-10-29] MEDS: Furosemide 40 MG TABLET PO (08:19)
[2022-10-29] MEDS: rifAXIMin 550 MG TABLET PO ×2 (08:19→19:51)
[2022-10-29] MEDS: Multivitamin TABLET 1 TAB PO (08:19)
[2022-10-29] MEDS: methADONE HCl 20 MG/2 ML ORAL.CONC 76 MG PO (08:23)
[2022-10-29] MEDS: HYDROmorphone HCl 0.5 MG/0.5 ML SYRINGE IM (08:50)
[2022-10-29] MEDS: diphenhydrAMINE HCL 50 MG/ML VIAL 25 MG IVPUSH (09:04)
[2022-10-29] MEDS: Acetaminophen 325 MG TABLET 650 MG PO ×2 (09:04→19:50)
--- NOTE | 2022-10-29 10:56 | P.CONAN_ITS ---
HPI - Anesthesia Eval Consult details Narrative: 52 yo female patient for port-a cath insertion. RIJ triple lumen catheter in place PMFSH Active Problems Active Problems: All Active Problems (Updated 10/29/22 @ 11:20 by Jeannine Estrada MD) Admission for fitting of Port-A-Cath (Acute) Hepatic encephalopathy (Acute) Acute blood loss anemia (Acute) COPD (chronic obstructive pulmonary disease) (Acute) Ascites of liver (Acute) Hypertension, essential (Acute) Hypothyroidism (Acute) Liver cirrhosis (Acute) Iron deficiency anemia (Acute) Pleural effusion, right (Acute) Hydrothorax (Acute) Heme positive stool (Acute) Coagulopathy (Acute) Acute on chronic anemia (Acute) Ascites (Acute) Pleural effusion (Acute) Restlessness and agitation (Acute) Breast lump on left side at 11 o'clock position (Acute) Open wound of left breast (Acute) Left breast abscess (Acute) Encounter for routine gynecological examination (Acute) Edema of both ankles (Acute) Cellulitis (Acute) Pancytopenia (Chronic) Diabetic ulcer of left foot (Acute) Obesity due to excess calories (Acute) Anemia (Acute). Just received 4th unit of blood since admission. Hgb/Hct before transfusion 7.0/23.8 Plt 59. INR 2.3. Will transfuse 2units FFP [facility] discharge follow-up (Acute) E. coli sepsis (Acute) Pressure ulcer of foot, stage 1 (Acute) Acute anemia (Acute) Bacteremia, escherichia coli (Acute) Hepatitis (Acute) Water retention (Acute) Cystitis (Acute) Dysuria (Acute) Encounter for general adult medical examination with abnormal findings (Acute) Allergic rhinitis (Acute) Lipid disorder (Acute) Rosacea (Acute) Rheumatoid arthritis (Acute) Herpes simplex antibody positive (Acute) Diabetes 1.5, managed as type 2 (Acute) Crohn's disease (Acute) Patient very somnolent, lethargic. 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 Other Mental health disorder Substance use disorder Family history of problems with anesthesia: No Surgical History Surgical History History of hernia repair History of bowel resection History of appendectomy History of Problems with Anesthesia: No Social History Social History Household Members: None Housing: Apartment Are you a primary home care scheduler to a significant other at home: No Do you presently have visiting nurse or other home services: No Alcohol intake: never Patient Tobacco Use Status: Current everyday Tobacco user Tobacco use type: Cigarette Cigarettes Per Day: 4 Years Smoked: 17 years old e-Cigarette/Vaping Use: Never Used service: No Current occupational status: employed Cognitive needs: No Hearing needs: No Vision needs: No Meds Allergies Allergy/AdvReac Type Severity Reaction Status Date / Time ciprofloxacin [Cipro] Allergy Unknown swelling Verified 10/26/22 09:11 of the throat , hives nitrofurantoin AdvReac Liver Verified 10/26/22 09:11 [From Macrobid] cirrhosis decompensation Active Medications: Current Medications Acetaminophen (Acetaminophen 325 Mg Tablet) 650 mg PO Q6H PRN PRN Reason: Pain, Mild (Pain Scale 1-3) Last Admin: 10/29/22 09:04 Dose: 650 mg Acyclovir (Acyclovir 200 Mg Capsule) 400 mg PO BEDTIME FLORENCIO Last Admin: 10/28/22 20:52 Dose: 400 mg Carvedilol (Carvedilol 3.125 Mg Tablet) 3.125 mg PO BID FLORENCIO; Protocol Last Admin: 10/29/22 08:18 Dose: 3.125 mg Dextrose (Dextrose 50 % 25 Gm/50 Ml Syringe) 25 gm IVPUSH Q15M PRN; Protocol PRN Reason: per Hypoglycemia Standing Ord. Docusate Sodium (Docusate Sodium 100 Mg Capsule) 100 mg PO DAILY PRN PRN Reason: Constipation Fentanyl (Fentanyl Citrate/Pf 100 Mcg/2 Ml Vial) 50 mcg IVPUSH Q5M PRN; Protocol PRN Reason: Pain, Severe (Pain Scale 7-10) Fluticasone Propionate (Fluticasone Propionate Nasal 16 Gm [place]) 1 spray NOSTRIL-B DAILY PRN PRN Reason: Allergy Symptoms Furosemide (Furosemide 40 Mg Tablet) 40 mg PO DAILY [facility]; Protocol Last Admin: 10/29/22 08:19 Dose: 40 mg Glucose (Glucose Gel 15 Gm Gel..Gram.) 15 gm PO Q15M PRN; Protocol PRN Reason: per Hypoglycemia Standing Ord. Ceftriaxone Sodium 1 gm/ (Sodium Chloride) 50 mls @ 100 mls/hr IV Q24H [facility] Last Infusion: 10/28/22 18:01 Dose: Infused Insulin Human Lispro (Insulin Lispro 100 Unit/Ml 3 Ml Vial) 0 unit SUBCUT QIDAC HS [facility]; Protocol Last Admin: 10/29/22 08:05 Dose: Not Given Lactulose (Lactulose 20 Gm/30 Ml Solution) 30 gm PO TID [facility] Last Admin: 10/29/22 08:19 Dose: 30 gm Levothyroxine Sodium (Levothyroxine Sodium 50 Mcg Tablet) 50 mcg PO DAILY@0600 [facility] Last Admin: 10/29/22 05:12 Dose: 50 mcg Methadone HCl (Methadone Hcl 20 Mg/2 Ml Oral.Conc) 76 mg PO DAILY [facility] Last Admin: 10/29/22 08:23 Dose: 76 mg Morphine Sulfate (Morphine Sulfate 4 Mg/Ml Cartridge) 4 mg IVPUSH Q4H PRN; Protocol PRN Reason: Pain, Severe (Pain Scale 7-10) Last Admin: 10/29/22 07:28 Dose: 4 mg Multivitamins/Vitamin C (Multivitamin Tablet) 1 tab PO DAILY [facility] Last Admin: 10/29/22 08:19 Dose: 1 tab Omeprazole (Omeprazole 20 Mg Capsule.Dr) 20 mg PO BEDTIME [facility] Last Admin: 10/28/22 20:53 Dose: 20 mg Ondansetron HCl (Ondansetron Hcl 4 Mg/2 Ml Vial) 4 mg IVPUSH Q8H PRN PRN Reason: Nausea and Vomiting Last Admin: 10/29/22 07:28 Dose: 4 mg Ondansetron HCl (Ondansetron Hcl 4 Mg/2 Ml Vial) 4 mg IVPUSH ONCE PRN PRN Reason: Nausea and Vomiting Rifaximin (Rifaximin 550 Mg Tablet) 550 mg PO BID [facility] Last Admin: 10/29/22 08:19 Dose: 550 mg Sodium Chloride (0.9 % Sodium Chloride Flush 3 Ml Syringe) 3 ml IVFLUSH QSHIFT [facility] Last Admin: 10/29/22 07:29 Dose: 3 ml Spironolactone (Spironolactone 25 Mg Tablet) 25 mg PO BID [facility] Last Admin: 10/29/22 08:19 Dose: 25 mg Home Medications Medication Instructions Recorded Confirmed Last Taken Type methadone 10 mg/mL oral concentrate 76 mg PO DAILY 05/04/21 10/27/22 10/26/22 History levothyroxine 50 mcg tablet 50 mcg PO DAILY@0600 07/28/22 10/26/22 10/26/22 History multivitamin 1 tab PO DAILY 07/28/22 10/26/22 07/27/22 History acyclovir 400 mg tablet 400 mg PO BEDTIME 08/18/22 10/26/22 Unknown History amiloride 5 mg tablet 5 mg PO DAILY 10/26/22 10/26/22 Unknown History fluticasone propionate 50 1 spray intranasal DAILY PRN 10/26/22 10/26/22 Unknown History mcg/actuation nasal Allergy Symptoms spray,suspension (Flonase Allergy Relief) furosemide 40 mg tablet 40 mg PO DAILY 10/26/22 10/26/22 Unknown History Exam Exam Date and Time: October 29, 2022 1056 Height,Weight and Vital Signs: Height 5 ft 4 in Weight 83.6 kg Last Vital Signs Temp 98.7 F 10/29/22 09:29 Pulse 87 10/29/22 09:29 Resp 14 10/29/22 09:29 BP 139/69 10/29/22 09:29 Pulse Ox 95 10/29/22 07:00 O2 Del Method Nasal Cannula 10/29/22 07:00 O2 Flow Rate 2 10/29/22 07:00 Oxygen Flow Rate 3 10/28/22 15:41 Vital Signs Temp Pulse Resp BP Pulse Ox O2 Del Method O2 Flow Rate 10/29/22 12:27 100.4 F 64 18 124/71 10/29/22 12:12 99.6 F 70 18 121/66 10/29/22 12:12 99.6 F 70 18 121/66 10/29/22 09:29 98.7 F 87 14 139/69 10/29/22 09:13 98.9 F 86 12 133/64 10/29/22 07:00 98.2 F 68 18 142/68 H 95 Nasal Cannula 2 10/29/22 03:00 98.0 F 84 18 128/74 93 Nasal Cannula 2 10/28/22 23:52 98.6 F 84 18 132/85 96 Nasal Cannula 3 10/28/22 19:49 99.5 F 71 16 134/61 97 Nasal Cannula 10/28/22 15:41 93 Nasal Cannula 10/28/22 15:40 98.7 F 85 18 116/85 93 Nasal Cannula 3 Pertinent Lab Results Pertinent Lab Results: Laboratory Tests 10/26/22 10/26/22 10/26/22 09:06 10:53 11:57 WBC 3.3 L RBC 1.78 L Hgb 4.6 L* Hct 16.1 L* MCV 90.4 MCH 25.8 L MCHC 28.6 L RDW 17.3 H Plt Count 93 L MPV 10.5 Immature Gran % (Auto) 0.3 Neut % (Auto) 60.3 Lymph % (Auto) 26.2 Gibson % (Auto) 11.7 H Eos % (Auto) 1.2 Baso % (Auto) 0.3 Lymph # (Auto) 0.9 L Gibson # (Auto) 0.4 Eos # (Auto) 0.0 Baso # (Auto) 0.0 Abs Immat Gran (auto) 0.01 Absolute Neuts (auto) 2.0 Absolute Nucleated RBC 0.000 Nucleated RBC % (auto) 0.0 PT 36.5 H INR 3.0 H APTT 29.7 D Sodium 142 Potassium 3.8 Chloride 105 Carbon Dioxide 32 H Anion Gap 9 L BUN 15 Creatinine 0.73 Estim Creat Clear Calc 94.3 Estimated GFR > 60 POC Glucose Random Glucose 74 Calcium 8.5 Magnesium 2.1 Total Bilirubin 1.1 H Direct Bilirubin 0.6 H AST 20 ALT 11 Alkaline Phosphatase 65 Ammonia Lactate Dehydrogenase Total Protein 5.8 L Albumin 2.4 L Pleural WBC Pleural RBC Pleural Neutrophils Pleural Lymphocytes Pleural Monocytes Pleural Other Cells Pleural Albumin Pleural LDH Stool Occult Blood POSITIVE Hep C Viral Load Hep C Viral Load Log Blood Type A Positive Antibody Screen NEGATIVE Crossmatch See Detail 10/26/22 10/26/22 10/26/22 16:11 16:12 17:16 WBC RBC Hgb 6.0 L* D Hct 20.7 L* D MCV MCH MCHC RDW Plt Count MPV Immature Gran % (Auto) Neut % (Auto) Lymph % (Auto) Gibson % (Auto) Eos % (Auto) Baso % (Auto) Lymph # (Auto) Gibson # (Auto) Eos # (Auto) Baso # (Auto) Abs Immat Gran (auto) Absolute Neuts (auto) Absolute Nucleated RBC Nucleated RBC % (auto) PT INR APTT Sodium Potassium Chloride Carbon Dioxide Anion Gap BUN Creatinine Estim Creat Clear Calc Estimated GFR POC Glucose 119 H Random Glucose Calcium Magnesium Total Bilirubin Direct Bilirubin AST ALT Alkaline Phosphatase Ammonia 65 H Lactate Dehydrogenase Total Protein Albumin Pleural WBC Pleural RBC Pleural Neutrophils Pleural Lymphocytes Pleural Monocytes Pleural Other Cells Pleural Albumin Pleural LDH Stool Occult Blood Hep C Viral Load <15 NOT DETECTED Hep C Viral Load Log <1.18 NOT DETECTED Blood Type Antibody Screen Crossmatch 10/26/22 10/26/22 10/27/22 20:19 21:02 00:25 WBC 4.8 RBC 2.73 L D Hgb 7.2 L 7.6 L Hct 24.8 L 25.5 L MCV 90.8 MCH 26.4 L MCHC 29.0 L RDW 16.1 H Plt Count 96 L MPV 10.8 Immature Gran % (Auto) Neut % (Auto) Lymph % (Auto) Gibson % (Auto) Eos % (Auto) Baso % (Auto) Lymph # (Auto) Gibson # (Auto) Eos # (Auto) Baso # (Auto) Abs Immat Gran (auto) Absolute Neuts (auto) Absolute Nucleated RBC 0.000 Nucleated RBC % (auto) 0.0 PT INR APTT Sodium Potassium Chloride Carbon Dioxide Anion Gap BUN Creatinine Estim Creat Clear Calc Estimated GFR POC Glucose 181 H Random Glucose Calcium Magnesium Total Bilirubin Direct Bilirubin AST ALT Alkaline Phosphatase Ammonia Lactate Dehydrogenase Total Protein Albumin Pleural WBC Pleural RBC Pleural Neutrophils Pleural Lymphocytes Pleural Monocytes Pleural Other Cells Pleural Albumin Pleural LDH Stool Occult Blood Hep C Viral Load Hep C Viral Load Log Blood Type Antibody Screen Crossmatch 10/27/22 10/27/22 10/27/22 06:22 07:25 11:47 WBC 5.9 RBC 2.74 L Hgb 7.3 L Hct 24.8 L MCV 90.5 MCH 26.6 L MCHC 29.4 L RDW 16.3 H Plt Count 96 L MPV 11.6 Immature Gran % (Auto) 0.3 Neut % (Auto) 68.6 Lymph % (Auto) 16.5 L Gibson % (Auto) 12.6 H Eos % (Auto) 1.7 Baso % (Auto) 0.3 Lymph # (Auto) 1.0 L Gibson # (Auto) 0.7 Eos # (Auto) 0.1 Baso # (Auto) 0.0 Abs Immat Gran (auto) 0.02 Absolute Neuts (auto) 4.0 Absolute Nucleated RBC 0.000 Nucleated RBC % (auto) 0.0 PT 26.1 H D INR 2.1 H APTT 28.2 Sodium 142 Potassium 4.0 Chloride 102 Carbon Dioxide 33 H Anion Gap 11 L BUN 14 Creatinine 0.87 Estim Creat Clear Calc 79.1 Estimated GFR > 60 POC Glucose 113 138 H Random Glucose 130 H Calcium 8.6 Magnesium Total Bilirubin Direct Bilirubin AST ALT Alkaline Phosphatase Ammonia Lactate Dehydrogenase 191 Total Protein Albumin Pleural WBC Pleural RBC Pleural Neutrophils Pleural Lymphocytes Pleural Monocytes Pleural Other Cells Pleural Albumin Pleural LDH Stool Occult Blood Hep C Viral Load Hep C Viral Load Log Blood Type Antibody Screen Crossmatch 10/27/22 10/27/22 10/27/22 13:15 13:58 17:50 WBC RBC Hgb Hct MCV MCH MCHC RDW Plt Count MPV Immature Gran % (Auto) Neut % (Auto) Lymph % (Auto) Gibson % (Auto) Eos % (Auto) Baso % (Auto) Lymph # (Auto) Gibson # (Auto) Eos # (Auto) Baso # (Auto) Abs Immat Gran (auto) Absolute Neuts (auto) Absolute Nucleated RBC Nucleated RBC % (auto) PT INR APTT Sodium Potassium Chloride Carbon Dioxide Anion Gap BUN Creatinine Estim Creat Clear Calc Estimated GFR POC Glucose 137 H 117 H Random Glucose Calcium Magnesium Total Bilirubin Direct Bilirubin AST ALT Alkaline Phosphatase Ammonia Lactate Dehydrogenase Total Protein Albumin Pleural WBC 0.081 Pleural RBC < 0.002 Pleural Neutrophils 1 Pleural Lymphocytes 5 Pleural Monocytes 6 Pleural Other Cells 88 Pleural Albumin 1.1 Pleural LDH 60 Stool Occult Blood Hep C Viral Load Hep C Viral Load Log Blood Type Antibody Screen Crossmatch 10/27/22 10/28/22 10/28/22 19:48 06:36 07:14 WBC 5.6 RBC 2.60 L Hgb 7.4 L Hct 24.5 L MCV 94.2 MCH 28.5 MCHC 30.2 L RDW 16.1 H Plt Count 71 L D MPV 11.1 Immature Gran % (Auto) Neut % (Auto) Lymph % (Auto) Gibson % (Auto) Eos % (Auto) Baso % (Auto) Lymph # (Auto) Gibson # (Auto) Eos # (Auto) Baso # (Auto) Abs Immat Gran (auto) Absolute Neuts (auto) Absolute Nucleated RBC 0.020 H Nucleated RBC % (auto) 0.4 H PT 27.3 H INR 2.2 H APTT Sodium 140 Potassium 4.3 Chloride 101 Carbon Dioxide 37 H Anion Gap 6 L BUN 11 Creatinine 0.78 Estim Creat Clear Calc 88.2 Estimated GFR > 60 POC Glucose 143 H 136 H Random Glucose 141 H Calcium 8.4 Magnesium 1.9 Total Bilirubin 2.0 H Direct Bilirubin AST 17 ALT 11 Alkaline Phosphatase 62 Ammonia Lactate Dehydrogenase Total Protein 5.8 L Albumin 2.4 L Pleural WBC Pleural RBC Pleural Neutrophils Pleural Lymphocytes Pleural Monocytes Pleural Other Cells Pleural Albumin Pleural LDH Stool Occult Blood Hep C Viral Load Hep C Viral Load Log Blood Type Antibody Screen Crossmatch 10/28/22 10/28/22 10/28/22 11:48 15:39 20:05 WBC RBC Hgb Hct MCV MCH MCHC RDW Plt Count MPV Immature Gran % (Auto) Neut % (Auto) Lymph % (Auto) Gibson % (Auto) Eos % (Auto) Baso % (Auto) Lymph # (Auto) Gibson # (Auto) Eos # (Auto) Baso # (Auto) Abs Immat Gran (auto) Absolute Neuts (auto) Absolute Nucleated RBC Nucleated RBC % (auto) PT INR APTT Sodium Potassium Chloride Carbon Dioxide Anion Gap BUN Creatinine Estim Creat Clear Calc Estimated GFR POC Glucose 178 H 177 H 159 H Random Glucose Calcium Magnesium Total Bilirubin Direct Bilirubin AST ALT Alkaline Phosphatase Ammonia Lactate Dehydrogenase Total Protein Albumin Pleural WBC Pleural RBC Pleural Neutrophils Pleural Lymphocytes Pleural Monocytes Pleural Other Cells Pleural Albumin Pleural LDH Stool Occult Blood Hep C Viral Load Hep C Viral Load Log Blood Type Antibody Screen Crossmatch 10/29/22 10/29/22 07:17 07:48 WBC 5.2 RBC 2.51 L Hgb 7.0 L* Hct 23.8 L MCV 94.8 MCH 27.9 MCHC 29.4 L RDW 16.0 Plt Count 59 L MPV 11.8 Immature Gran % (Auto) Neut % (Auto) Lymph % (Auto) Gibson % (Auto) Eos % (Auto) Baso % (Auto) Lymph # (Auto) Gibson # (Auto) Eos # (Auto) Baso # (Auto) Abs Immat Gran (auto) Absolute Neuts (auto) Absolute Nucleated RBC 0.000 Nucleated RBC % (auto) 0.0 PT 28.2 H INR 2.3 H APTT Sodium 143 Potassium 4.1 Chloride 101 Carbon Dioxide 35 H Anion Gap 11 L BUN 11 Creatinine 0.73 Estim Creat Clear Calc 94.3 Estimated GFR > 60 POC Glucose 135 H Random Glucose 147 H Calcium 8.6 Magnesium Total Bilirubin 1.2 H Direct Bilirubin AST 18 ALT 12 Alkaline Phosphatase 57 Ammonia Lactate Dehydrogenase Total Protein 5.9 L Albumin 2.5 L Pleural WBC Pleural RBC Pleural Neutrophils Pleural Lymphocytes Pleural Monocytes Pleural Other Cells Pleural Albumin Pleural LDH Stool Occult Blood Hep C Viral Load Hep C Viral Load Log Blood Type Antibody Screen Crossmatch Airway Mallampati Class: III TM Dist: >3cm Neck ROM: Full Partial: Upper Loose/Missing/Broken Teeth: Yes (Missing some teeth bottom. Denies broken or loose teeth) Heart: RRR with systolic murmur Lungs: Decreased BS. No wheeze Assessment and Plan Assessment Anesthesia Assessment: Anesthesia Plan Discussed and Chart Reviewed Final Anesthetic Review Family History of Problems with Anesthesia: No History of Problems with Anesthesia: No NPO: Yes ASA Class: IV Final Preanesthetic Review: No Changes in Pt Med Stat, Meds/Allgs Chart Reviewed, Consent Obtained/Reviewed and Anes Risks/Benef Reviewed Patient Risk: High Procedure Risk: Intermediate Assessment/Block/Sedation in SS: Assess/Block/Sedation- Anesthetic Plan Anesthetic Plan: MAC: Disposition: Standard PACU and Inp. Admit - Standard Bed
[2022-10-29] MEDS: Phytonadione (Vit K1) 10 MG in 0.9 % Sodium Chloride 50 ML 51 MG IV (12:08)
--- NOTE | 2022-10-29 12:36 | PC.NURSE ---
all vitals signs taken in preop with sats on 2lN/c
[2022-10-29 12:43] LABS: Glucose, Whole Blood 145 mg/dL (60-115)
--- NOTE | 2022-10-29 13:16 | PC.NURSE ---
ffp obtained upon request of Dr. Estrada to be given by anesthesia in OR , aware that is recommended by [facility] to be given 15 after received.
--- NOTE | 2022-10-29 14:11 | W.PM.OPN ---
Operative Note Operative Note Date of Service: 10/29/22 Narrative: Preoperative diagnosis: [] Long-term IV access Postop diagnosis: [] Same Procedure [] left internal jugular vein Port-A-Cath placement with Doppler ultrasound guidance and fluoroscopy Surgeon: [] Robles Java Android Developer: [] Holly Type of Anesthesia: [] MAC Indication for surgery: [] Long-term IV access. Patient has a plethora of medical problems including end-stage cirrhosis and was coagulopathic and required FFP and vitamin K prior to the procedure. Patient already had a right internal jugular vein triple-lumen placement. Also patient may be a future candidate for a tips procedure so left internal jugular vein was chosen for access. Findings: [] Patient brought to the operating room, placed on operative table in supine position, after adequate level of MAC anesthesia was induced, the left neck and chest were prepped draped usual sterile fashion. Using Doppler ultrasound guidance, left internal jugular vein was identified and cannulated using Seldinger technique. A wire was advanced to the level of superior vena cava under fluoroscopic guidance. A pocket was fashioned approximately 3 finger breaths below the cannulation site, and tunnel to the wire. Catheter was placed to the subcutaneous tunnel, connected to a port, and the port secured to the pocket using 3-0 Vicryl sutures. Dilating sheath was then placed over the wire under fluoroscopic guidance and the wire was retrieved. Pre- hep flush catheter was then advanced to the level of the distal superior vena cava under fluoroscopic guidance. Peel-away sheath was removed without incident. Antegrade and retrograde flow were easily established. . Wounds were irrigated, secured hemostasis, and closed using interrupted inverted dermal 3-0 Vicryl sutures followed by Steri-Strips and sterile dressings. Sponge, needle, and instrument counts reported correct. Patient tolerated the procedure well and emerged anesthesia stable condition. EBL minimal Post procedure x-ray pending
--- NOTE | 2022-10-29 14:59 | PC.NURSE ---
right i.j. tlc clamped flushed assessed port and ensured all clamps and curos caps in place/placed.
--- NOTE | 2022-10-29 15:03 | HO.PM.IMPN ---
Subjective Subjective Date of Service: 10/29/22 Interval History: c/o back pain NPO for port no GI bleeding Review of Systems Review of Systems: Yes all other systems are reviewed and are negative Physical Exam Vital Signs: Vital Signs: Last Vital Signs Temp 98 F 10/29/22 14:21 Pulse 70 10/29/22 14:51 Resp 16 10/29/22 14:51 BP 116/59 L 10/29/22 14:51 Pulse Ox 95 10/29/22 14:51 O2 Del Method Nasal Cannula 10/29/22 14:51 O2 Flow Rate 2 10/29/22 14:51 Oxygen Flow Rate 3 10/28/22 15:41 BMI result Body Mass Index 31.6 Gen: in no acute distress HEENT: sclera anicteric, moist and pale mucus membranes Neck: supple Lungs: clear bilaterally Heart: regular rate and rhythm, no murmurs Abd: soft, non-tender, non-distended Ext: no edema Skin: warm/well-perfused Neuro: alert and oriented x3, asterixis present Psych: appropriate affect Objective Data Active Medications Acetaminophen (Acetaminophen 325 Mg Tablet) 650 mg PO Q6H PRN PRN Reason: Pain, Mild (Pain Scale 1-3) Last Admin: 10/29/22 09:04 Dose: 650 mg Documented By: MAXIMO Acyclovir (Acyclovir 200 Mg Capsule) 400 mg PO BEDTIME [facility] Last Admin: 10/28/22 20:52 Dose: 400 mg Documented By: JYOTI Albuterol Sulfate (Albuterol Sulfate (0.083%) 2.5 Mg/3 Ml Vial.Neb) 2.5 mg INHALE ONCE PRN PRN Reason: Wheezing Carvedilol (Carvedilol 3.125 Mg Tablet) 3.125 mg PO BID [facility]; Protocol Last Admin: 10/29/22 08:18 Dose: 3.125 mg Documented By: MAXIMO Dextrose (Dextrose 50 % 25 Gm/50 Ml Syringe) 25 gm IVPUSH Q15M PRN; Protocol PRN Reason: per Hypoglycemia Standing Ord. Docusate Sodium (Docusate Sodium 100 Mg Capsule) 100 mg PO DAILY PRN PRN Reason: Constipation Fentanyl (Fentanyl Citrate/Pf 100 Mcg/2 Ml Vial) 50 mcg IVPUSH Q5M PRN; Protocol PRN Reason: Pain, Severe (Pain Scale 7-10) Fluticasone Propionate (Fluticasone Propionate Nasal 16 Gm [place]) 1 spray NOSTRIL-B DAILY PRN PRN Reason: Allergy Symptoms Furosemide (Furosemide 40 Mg Tablet) 40 mg PO DAILY [facility]; Protocol Last Admin: 10/29/22 08:19 Dose: 40 mg Documented By: MAXIMO Glucose (Glucose Gel 15 Gm Gel..Gram.) 15 gm PO Q15M PRN; Protocol PRN Reason: per Hypoglycemia Standing Ord. Ceftriaxone Sodium 1 gm/ (Sodium Chloride) 50 mls @ 100 mls/hr IV Q24H [facility] Last Infusion: 10/28/22 18:01 Dose: Infused Documented By: MAXIMO Lactated Ringer's (Lr) 1,000 mls @ 50 mls/hr IVCONT .Q20H [facility] Insulin Human Lispro (Insulin Lispro 100 Unit/Ml 3 Ml Vial) 0 unit SUBCUT QIDACHS [facility]; Protocol Last Admin: 10/29/22 08:05 Dose: Not Given Documented By: MAXIMO Non-Admin Reason: No Insulin Coverage Lactulose (Lactulose 20 Gm/30 Ml Solution) 30 gm PO TID [facility] Last Admin: 10/29/22 08:19 Dose: 30 gm Documented By: MAXIMO Levothyroxine Sodium (Levothyroxine Sodium 50 Mcg Tablet) 50 mcg PO DAILY@0600 [facility] Last Admin: 10/29/22 05:12 Dose: 50 mcg Documented By: JYOTI Methadone HCl (Methadone Hcl 20 Mg/2 Ml Oral.Conc) 76 mg PO DAILY [facility] Last Admin: 10/29/22 08:23 Dose: 76 mg Documented By: MAXIMO Morphine Sulfate (Morphine Sulfate 4 Mg/Ml Cartridge) 4 mg IVPUSH Q4H PRN; Protocol PRN Reason: Pain, Severe (Pain Scale 7-10) Last Admin: 10/29/22 07:28 Dose: 4 mg Documented By: ELDER Multivitamins/Vitamin C (Multivitamin Tablet) 1 tab PO DAILY [facility] Last Admin: 10/29/22 08:19 Dose: 1 tab Documented By: MAXIMO Omeprazole (Omeprazole 20 Mg Capsule.Dr) 20 mg PO BEDTIME [facility] Last Admin: 10/28/22 20:53 Dose: 20 mg Documented By: JYOTI Ondansetron HCl (Ondansetron Hcl 4 Mg/2 Ml Vial) 4 mg IVPUSH Q8H PRN PRN Reason: Nausea and Vomiting Last Admin: 10/29/22 07:28 Dose: 4 mg Documented By: ELDER Ondansetron HCl (Ondansetron Hcl 4 Mg/2 Ml Vial) 4 mg IVPUSH ONCE PRN PRN Reason: Nausea and Vomiting Ondansetron HCl (Ondansetron Hcl 4 Mg/2 Ml Vial) 4 mg IVPUSH ONCE PRN PRN Reason: Nausea and Vomiting Rifaximin (Rifaximin 550 Mg Tablet) 550 mg PO BID [facility] Last Admin: 10/29/22 08:19 Dose: 550 mg Documented By: MAXIMO Sodium Chloride (0.9 % Sodium Chloride Flush 3 Ml Syringe) 3 ml IVFLUSH QSHIFT [facility] Last Admin: 10/29/22 07:29 Dose: 3 ml Documented By: ELDER Spironolactone (Spironolactone 25 Mg Tablet) 25 mg PO BID [facility] Last Admin: 10/29/22 08:19 Dose: 25 mg Documented By: MAXIMO Labs 10/29/22 07:17 10/29/22 07:17 Labs: Laboratory Results - last 24 hr 10/26/22 10/28/22 10/28/22 09:06 15:39 20:05 MCV MCH MCHC RDW Plt Count MPV Absolute Nucleated RBC Nucleated RBC % (auto) PT INR Anion Gap Estim Creat Clear Calc Estimated GFR POC Glucose 177 H 159 H Random Glucose Calcium Total Bilirubin AST ALT Alkaline Phosphatase Total Protein Albumin Blood Type A Positive Antibody Screen NEGATIVE Crossmatch See Detail 10/29/22 10/29/22 10/29/22 07:17 07:48 11:25 MCV 94.8 MCH 27.9 MCHC 29.4 L RDW 16.0 Plt Count 59 L MPV 11.8 Absolute Nucleated RBC 0.000 Nucleated RBC % (auto) 0.0 PT 28.2 H INR 2.3 H Anion Gap 11 L Estim Creat Clear Calc 94.3 Estimated GFR > 60 POC Glucose 135 H Random Glucose 147 H Calcium 8.6 Total Bilirubin 1.2 H AST 18 ALT 12 Alkaline Phosphatase 57 Total Protein 5.9 L Albumin 2.5 L Blood Type A Positive Antibody Screen NEGATIVE Crossmatch 10/29/22 12:39 MCV MCH MCHC RDW Plt Count MPV Absolute Nucleated RBC Nucleated RBC % (auto) PT INR Anion Gap Estim Creat Clear Calc Estimated GFR POC Glucose 145 H Random Glucose Calcium Total Bilirubin AST ALT Alkaline Phosphatase Total Protein Albumin Blood Type Antibody Screen Crossmatch Microbiology Microbiology Results: Microbiology 10/27/22 13:15 Gram Stain - Final Thoracentesis Fluid Anaerobic Culture - Preliminary No growth to date. Body Fluid Culture - Final No growth after 2 days Assessment and Plan (1) Hepatic encephalopathy: Status: Acute Plan d4 52yo F with decompensated HCV cirrhosis with hepatic hydrothorax, OUD on methadone, COPD, RA, Crohn's disease, hypothyroidism, DM2 sent in from [facility] where she was due to receive port for blood draws and infusions, found to be profoundly anemic with Hb 5 FOBT+ acute/subacute blood loss anemia due to GIB - transfused 2u PRBCs with IV furosemide, appropriate response in H+H; will give 3rd unit today for Hb 7 - EGD + C-scope by Dr Garcia 10/27: EGD Findings:? Esophagus:? Normal mucosa noted in the entire esophagus. The Z-line is at 38 cm. 2 columns of medium sized varices were noted in the lower esophagus without high risk stigmata. Stomach:?Diffuse congestion and erythema in mosaic pattern consistent with portal hypertensive gastropathy was noted in the whole stomach. Random cold forceps biopsies were taken to r/o H pylori. Duodenum:? Normal duodenal mucosa to the extent visualised. Cold forceps biopsies were taken from the duodenal bulb and second portion of the duodenum to r/o celiac sprue. Additional intervention: A [employer] multibander was installed on the tip of the scope in the usual fashion and one band was deployed. Complete decompression of both variceal columns was noted thereafter. Colonoscopy Procedure:? Findings: Mucosa: Visualisation for adequate polyp detection was limited by copious stool. However no active bleeding or large mass was noted. Protruding lesions: Large internal hemorrhoids with stigmata of recent bleeding. - IV->PO PPI, d/c octreotide, continue IV ceftriaxone for SBP ppx - f/u biopsy results - outpt: discuss small bowel evaluation, repeat C-scope in 1yr - port placement today for infusions + blood draws [pt is difficult stick] hepatic hydrothorax - diagnostic/therapeutic thoracentesis with removal of 1200 mL on 10/27, appears transudative; cultures negative - continue spironolactone, furosemide coagulopathy due to cirrhosis - INR improved p vit K; will give another dose of vit K and 2u FFP for port placement hepatic encephalopathy - lactulose/rifaximin [the rifaximin is new and will also be prescribed upon discharge] HTN - continue carvedilol to replace metoprolol COPD without acute exac - continue home inhalers Crohn's disease - quiescent hypothyroidism - LT4 DM2 - correction-dose lispro VTE ppx - SCDs dispo - PT evaluation declined, pt will go home In my clinical judgment, the patient requires continued inpatient hospitalization for the following reasons: port placement, coagulopath, anemia Time Spent With Patient Time: Total time managing care of this patient today _40___ minutes. Quality Stroke Does the patient have a stroke diagnosis?: No VTE Prior VTE?: No VTE Risk Level:: Medical - moderate - high VTE Device Contraindication: N/A - Device Ordered VTE Drug Contraindication: Treatment Not Indicated
[2022-10-29 16:18] LABS: Glucose, Whole Blood 120 mg/dL (60-115)
[2022-10-29 16:35] LABS: Hemoglobin 7.4 g/dl (12.0-16.0); PLT CLUMP 1; Red Cell Distribution Width 15.9 % (11.0-16.0)
[2022-10-29 16:37] LABS: Hematocrit 24.4 % (37.0-47.0); Mean Corpuscular HGB Conc 30.3 g/dl (31.0-35.0); Mean Corpuscular Hemoglobin 28.5 pg (27.0-33.0); Mean Corpuscular Volume 93.8 fL (80.0-98.0); Mean Platelet Volume 11.5 fL (9.4-12.3)
[2022-10-29 16:43] LABS: Platelet Count 54 X10*3/uL (160-400); White Blood Count 4.6 X10*3/uL (4.8-10.8)
--- NOTE | 2022-10-29 18:15 | PM.EVENT ---
Event Note Date of Service: 10/29/22 Event Note: Post portacath CXR shows near complete opacification of right lung which is worse but prior xray but not a new finding, pt is denies any respiratory difficult, O2 sat is 99 on room air. Given no symptom will continue to monitor, repeat xray tomorrow, and pulmonary consult Time Spent With Patient Time: Total time managing care of this patient today ____ minutes.
[2022-10-29] MEDS: cefTRIAXone sodium 1 GM in 0.9 % Sodium Chloride 50 ML IV (18:34)
[2022-10-29 19:50] LABS: Glucose, Whole Blood 131 mg/dL (60-115)
[2022-10-29] MEDS: Acyclovir 200 MG CAPSULE 400 MG PO (19:51)
[2022-10-29] MEDS: Omeprazole 20 MG CAPSULE.DR PO (19:51)
[2022-10-29] MEDS: Albuterol/Iprat 2.5/0.5MG 3 ML AMPUL.NEB INHALE (20:24)
[2022-10-29 21:08] LABS: Glucose, Whole Blood 172 mg/dL (60-115)
[2022-10-30 02:17] VITALS: RESP 16
[2022-10-30] MEDS: Morphine Sulfate 4 MG/ML CARTRIDGE IVPUSH ×2 (02:17→06:09)
--- NOTE | 2022-10-30 02:44 | PC.NURSE ---
Care assumed 19:00 10/29. Pt A&O, appropriately drowsy s/p portacath placement earlier in the day. Medicated for pain with prn tylenol and morphine as ordered and appropriate with +effect. NSR 60's on tele. +pp/cms. Lungs dim with fine crackles in right lobes; near complete opacification of right lung known by MD. Pt continues on 2L nc with even and unlabored breathing. Pt denies chest pain and sob. Toelrating po. Denies n/v. See assessment for full details. Handoff report given 02:00 10/30.
[2022-10-30 03:06] VITALS: BP 142/73; PULSE 69; RESP 15; TEMP 37; O2SAT 94
[2022-10-30] MEDS: Levothyroxine Sodium 50 MCG TABLET PO (06:08)
[2022-10-30 06:36] LABS: Hemoglobin 7.5 g/dl (12.0-16.0); PLT CLUMP 1; Red Cell Distribution Width 15.9 % (11.0-16.0)
[2022-10-30 06:38] LABS: Hematocrit 25.3 % (37.0-47.0); Mean Corpuscular HGB Conc 29.6 g/dl (31.0-35.0); Mean Corpuscular Volume 94.4 fL (80.0-98.0); Mean Platelet Volume 11.4 fL (9.4-12.3); Red Blood Count 2.68 X10*6/uL (4.20-5.50)
[2022-10-30 06:44] LABS: INTERNATIONAL NORM RATIO 2.2 (0.9-1.1); Prothrombin Time 27.1 SEC (11.1-13.3)
[2022-10-30 06:52] LABS: Platelet Count 49 X10*3/uL (160-400); White Blood Count 4.2 X10*3/uL (4.8-10.8)
[2022-10-30 07:12] LABS: Anion Gap 9 (12-20); Blood Urea Nitrogen 9 mg/dL (9-16); Calcium 8.4 mg/dL (8.4-10.2); Carbon Dioxide 39 mmol/L (22-29); Chloride 98 mmol/L (96-108); Creatinine Clr Calc Pharmacy 96.9; Estimated Glomerular Filt Rate > 60; Glucose Random 125 mg/dL (60-115); Potassium 3.5 mmol/L (3.3-5.1); Sodium 142 mmol/L (135-145)
[2022-10-30 07:17] VITALS: BP 138/76; PULSE 67; RESP 18; TEMP 36.5; O2SAT 94
[2022-10-30 07:41] LABS: Glucose, Whole Blood 118 mg/dL (60-115)
[2022-10-30] MEDS: ondansetron HCL 4 MG/2 ML VIAL IVPUSH (08:04)
[2022-10-30] MEDS: Lactulose 20 GM/30 ML SOLUTION 30 GM PO (08:51)
[2022-10-30] MEDS: Spironolactone 25 MG TABLET 50 MG PO ×2 (08:52→21:56)
[2022-10-30] MEDS: Furosemide 40 MG/4 ML VIAL IVPUSH ×2 (08:52→18:25)
[2022-10-30] MEDS: rifAXIMin 550 MG TABLET PO ×2 (08:52→21:58)
[2022-10-30] MEDS: carvediloL 3.125 MG TABLET PO ×2 (08:52→21:58)
[2022-10-30] MEDS: Multivitamin TABLET 1 TAB PO (08:52)
[2022-10-30] MEDS: methADONE HCl 20 MG/2 ML ORAL.CONC 76 MG PO (08:52)
[2022-10-30] MEDS: HYDROmorphone HCl 1 MG/ML SYRINGE 0.6 MG IVPUSH ×3 (10:06→23:40)
[2022-10-30 11:42] LABS: Glucose, Whole Blood 209 mg/dL (60-115)
--- NOTE | 2022-10-30 11:44 | HO.PM.IMPN ---
Subjective Subjective Date of Service: 10/30/22 Interval History: yesterday, post-port CXR showed near-complete opacification of R lung. Pt denied any dyspnea and had SaO2 99 on RA. CXR worse today and became hypoxic, currently on 4L via O2 c/o back pain, nausea Review of Systems Review of Systems: Yes all other systems are reviewed and are negative Physical Exam Vital Signs: Vital Signs: Last Vital Signs Temp 97.7 F 10/30/22 07:17 Pulse 67 10/30/22 07:17 Resp 18 10/30/22 07:17 BP 138/76 10/30/22 07:17 Pulse Ox 94 10/30/22 07:17 O2 Del Method Nasal Cannula 10/30/22 07:17 O2 Flow Rate 2 10/30/22 07:17 Oxygen Flow Rate 3 10/28/22 15:41 BMI result Body Mass Index 31.6 Gen: mild dyspnea HEENT: sclera anicteric, moist and pale mucus membranes Neck: supple, port R neck without any bleeding Lungs: no air entry on R Heart: regular rate and rhythm, no murmurs Abd: soft, non-tender, non-distended Ext: no edema Skin: warm/well-perfused Neuro: alert and oriented x3, asterixis present Psych: appropriate affect Objective Data Active Medications Acetaminophen (Acetaminophen 325 Mg Tablet) 650 mg PO Q6H PRN PRN Reason: Pain, Mild (Pain Scale 1-3) Last Admin: 10/29/22 19:50 Dose: 650 mg Documented By: MEGHANA Acyclovir (Acyclovir 200 Mg Capsule) 400 mg PO BEDTIME [facility] Last Admin: 10/29/22 19:51 Dose: 400 mg Documented By: MEGHANA Albuterol Sulfate (Albuterol Sulfate (0.083%) 2.5 Mg/3 Ml Vial.Neb) 2.5 mg INHALE ONCE PRN PRN Reason: Wheezing Albuterol/Ipratropium (Albuterol/Iprat 2.5/0.5mg 3 Ml Ampul.Neb) 3 ml INHALE Q4H PRN PRN Reason: Wheezing Last Admin: 10/29/22 20:24 Dose: 3 ml Documented By: KALPANA Carvedilol (Carvedilol 3.125 Mg Tablet) 3.125 mg PO BID [facility]; Protocol Last Admin: 10/30/22 08:52 Dose: 3.125 mg Documented By: ARCHANA Dextrose (Dextrose 50 % 25 Gm/50 Ml Syringe) 25 gm IVPUSH Q15M PRN; Protocol PRN Reason: per Hypoglycemia Standing Ord. Docusate Sodium (Docusate Sodium 100 Mg Capsule) 100 mg PO DAILY PRN PRN Reason: Constipation Fluticasone Propionate (Fluticasone Propionate Nasal 16 Gm [place]) 1 spray NOSTRIL-B DAILY PRN PRN Reason: Allergy Symptoms Furosemide (Furosemide 40 Mg Tablet) 40 mg PO DAILY [facility]; Protocol Last Admin: 10/29/22 08:19 Dose: 40 mg Documented By: MAXIMO Furosemide (Furosemide 40 Mg/4 Ml Vial) 40 mg IVPUSH BID@0900,1800 [facility]; Protocol Last Admin: 10/30/22 09:20 Dose: Not Given Documented By: ARCHANA Non-Admin Reason: Previously Administered Glucose (Glucose Gel 15 Gm Gel..Gram.) 15 gm PO Q15M PRN; Protocol PRN Reason: per Hypoglycemia Standing Ord. Hydromorphone HCl (Hydromorphone Hcl 1 Mg/Ml Syringe) 0.6 mg IVPUSH Q4H PRN; Protocol PRN Reason: severe pain Last Admin: 10/30/22 10:06 Dose: 0.6 mg Documented By: ARCHANA Ceftriaxone Sodium 1 gm/ (Sodium Chloride) 50 mls @ 100 mls/hr IV Q24H [facility] Last Infusion: 10/29/22 19:15 Dose: Infused Documented By: MEGHANA Insulin Human Lispro (Insulin Lispro 100 Unit/Ml 3 Ml Vial) 0 unit SUBCUT QIDACHS [facility]; Protocol Last Admin: 10/30/22 07:51 Dose: Not Given Documented By: ARCHANA Non-Admin Reason: No Insulin Coverage Lactulose (Lactulose 20 Gm/30 Ml Solution) 30 gm PO TID [facility] Last Admin: 10/30/22 08:51 Dose: 30 gm Documented By: ARCHANA Levothyroxine Sodium (Levothyroxine Sodium 50 Mcg Tablet) 50 mcg PO DAILY@0600 [facility] Last Admin: 10/30/22 06:08 Dose: 50 mcg Documented By: HOWIE Methadone HCl (Methadone Hcl 20 Mg/2 Ml Oral.Conc) 76 mg PO DAILY [facility] Last Admin: 10/30/22 08:52 Dose: 76 mg Documented By: ARCHANA Multivitamins/Vitamin C (Multivitamin Tablet) 1 tab PO DAILY [facility] Last Admin: 10/30/22 08:52 Dose: 1 tab Documented By: ARCHANA Omeprazole (Omeprazole 20 Mg Capsule.Dr) 20 mg PO BEDTIME [facility] Last Admin: 10/29/22 19:51 Dose: 20 mg Documented By: MEGHANA Ondansetron HCl (Ondansetron Hcl 4 Mg/2 Ml Vial) 4 mg IVPUSH Q8H PRN PRN Reason: Nausea and Vomiting Last Admin: 10/30/22 08:04 Dose: 4 mg Documented By: ARCHANA Rifaximin (Rifaximin 550 Mg Tablet) 550 mg PO BID [facility] Last Admin: 10/30/22 08:52 Dose: 550 mg Documented By: ARCHANA Sodium Chloride (0.9 % Sodium Chloride Flush 3 Ml Syringe) 3 ml IVFLUSH QSHIFT [facility] Last Admin: 10/30/22 07:51 Dose: Not Given Documented By: ARCHANA Non-Admin Reason: No Access Spironolactone (Spironolactone 25 Mg Tablet) 50 mg PO BID [facility] Last Admin: 10/30/22 08:52 Dose: 50 mg Documented By: ARCHANA Labs 10/30/22 06:21 10/30/22 06:21 Labs: Laboratory Results - last 24 hr 10/26/22 10/29/22 10/29/22 09:06 11:25 12:39 MCV MCH MCHC RDW Plt Count MPV Absolute Nucleated RBC Nucleated RBC % (auto) PT INR Anion Gap Estim Creat Clear Calc Estimated GFR POC Glucose 145 H Random Glucose Calcium Blood Type A Positive Antibody Screen NEGATIVE Crossmatch See Detail 10/29/22 10/29/22 10/29/22 16:15 16:30 19:45 MCV 93.8 MCH 28.5 MCHC 30.3 L RDW 15.9 Plt Count 54 L MPV 11.5 Absolute Nucleated RBC 0.000 Nucleated RBC % (auto) 0.0 PT INR Anion Gap Estim Creat Clear Calc Estimated GFR POC Glucose 120 H 131 H Random Glucose Calcium Blood Type Antibody Screen Crossmatch 10/29/22 10/30/22 10/30/22 20:51 06:21 07:38 MCV 94.4 MCH 28.0 MCHC 29.6 L RDW 15.9 Plt Count 49 L MPV 11.4 Absolute Nucleated RBC 0.000 Nucleated RBC % (auto) 0.0 PT 27.1 H INR 2.2 H Anion Gap 9 L Estim Creat Clear Calc 96.9 Estimated GFR > 60 POC Glucose 172 H 118 H Random Glucose 125 H Calcium 8.4 Blood Type Antibody Screen Crossmatch 10/30/22 11:34 MCV MCH MCHC RDW Plt Count MPV Absolute Nucleated RBC Nucleated RBC % (auto) PT INR Anion Gap Estim Creat Clear Calc Estimated GFR POC Glucose 209 H Random Glucose Calcium Blood Type Antibody Screen Crossmatch Impressions Guidance Fluoroscopy 10/29/22 14:06 IMPRESSION: Fluoroscopy guidance for Port-A-Cath placement. Chest X-Ray 10/29/22 17:30 IMPRESSION: Left-sided chest port tip projecting at the level of the proximal right atrium. No pneumothorax. New near complete opacification of the right lung, nonspecific could represent a combination of atelectasis and worsening pleural effusion; given rapid onset mucus plugging leading to obstructive atelectasis is not excluded. Close attention on follow-up recommended. Chest X-Ray 10/30/22 08:10 IMPRESSION: Left sided chest port projecting at the level of the proximal right atrium. New complete opacification of the right lung, with interval worsening as compared to previous. This is nonspecific, could represent a combination of atelectasis/airspace disease and pleural effusion. Obstructive atelectasis related to mucous plugging, inflammatory/infectious process cannot be excluded. Recommend close clinical correlation and management. Further evaluation with CT chest as clinically warranted. Microbiology Microbiology Results: Microbiology 10/27/22 13:15 Gram Stain - Final Thoracentesis Fluid Anaerobic Culture - Preliminary No growth to date. Body Fluid Culture - Final No growth after 2 days Assessment and Plan (1) Hepatic encephalopathy: Status: Acute Plan d5 52yo F with decompensated HCV cirrhosis with hepatic hydrothorax, OUD on methadone, COPD, RA, Crohn's disease, hypothyroidism, DM2 sent in from [facility] where she was due to receive port for blood draws and infusions, found to be profoundly anemic with Hb 5, FOBT+ transfused total 3u pRBCs, underwent thoracentesis + EGD 10/27/22 now with right lung-whiteout acute hypoxic respiratory failure right lung whiteout - supplemental oxygen, CT chest, Pulm consult, may need Thoracic consult as well; ?trapped lung ?mucus plugging. give IV furosemide acute/subacute blood loss anemia due to GI - transfused 3u PRBCs with IV furosemide, appropriate response in H+H - EGD + C-scope by Dr Garcia 10/27: EGD Findings:? Esophagus:? Normal mucosa noted in the entire esophagus. The Z-line is at 38 cm. 2 columns of medium sized varices were noted in the lower esophagus without high risk stigmata. Stomach:?Diffuse congestion and erythema in mosaic pattern consistent with portal hypertensive gastropathy was noted in the whole stomach. Random cold forceps biopsies were taken to r/o H pylori. Duodenum:? Normal duodenal mucosa to the extent visualised. Cold forceps biopsies were taken from the duodenal bulb and second portion of the duodenum to r/o celiac sprue. Additional intervention: A [email or web address] multibander was installed on the tip of the scope in the usual fashion and one band was deployed. Complete decompression of both variceal columns was noted thereafter. Colonoscopy Procedure:? Findings: Mucosa: Visualisation for adequate polyp detection was limited by copious stool. However no active bleeding or large mass was noted. Protruding lesions: Large internal hemorrhoids with stigmata of recent bleeding. - IV->PO PPI, d/c'ed octreotide, continue IV ceftriaxone for SBP ppx - f/u biopsy results - outpt: discuss small bowel evaluation, repeat C-scope in 1yr - port placement done 10/29/22 for infusions + blood draws as pt has poor venous access hepatic hydrothorax - diagnostic/therapeutic thoracentesis with removal of 1200 mL on 10/27, appears transudative; cultures negative - increase spironolactone, give furosemide IV coagulopathy due to cirrhosis - given vitamin K + 2u FFP hepatic encephalopathy - lactulose/rifaximin [the rifaximin is new and will also be prescribed upon discharge] HTN - continue carvedilol to replace metoprolol COPD without acute exac - continue home inhalers thrombocytopenia - due to cirrhosis; monitor CBC Crohn's disease - quiescent hypothyroidism - LT4 DM2 - correction-dose lispro VTE ppx - SCDs given GIB/coagulopathy/thrombocytopenia dispo - PT evaluation declined In my clinical judgment, the patient requires continued inpatient hospitalization for the following reasons: hypoxia, R lung white-out Time Spent With Patient Time: Total time managing care of this patient today ___50_ minutes. Quality Stroke Does the patient have a stroke diagnosis?: No VTE Prior VTE?: No VTE Risk Level:: Medical - moderate - high VTE Device Contraindication: N/A - Device Ordered VTE Drug Contraindication: Treatment Not Indicated
[2022-10-30] MEDS: Insulin Lispro 100 UNIT/ML 3 ML VIAL SUBCUT (11:58)
--- NOTE | 2022-10-30 12:02 | P.PNGI_ITS ---
Subjective Subjective Date of Service: 10/30/22 Interval History: s/p EGD and colo on 10/27. Nonbleeding varices, PHG. Hemorrhoids. s/p L IJ port placement 10/29. Currently evaluated at bedside and reports worsening shortness of breath. Critical Care Time (minutes): 0 Physical Exam 2 Vital Signs: Vital Signs: Last Vital Signs Temp 97.7 F 10/30/22 07:17 Pulse 67 10/30/22 07:17 Resp 18 10/30/22 07:17 BP 138/76 10/30/22 07:17 Pulse Ox 94 10/30/22 07:17 O2 Del Method Nasal Cannula 10/30/22 07:17 O2 Flow Rate 2 10/30/22 07:17 Oxygen Flow Rate 3 10/28/22 15:41 BMI result Body Mass Index 31.6 Gen appear: Somnolent, dozes off mid conversation HEENT: no icterus Chest: port side clean, no erythema Abd: soft, mildly distended Neuro: Asterixis +++ Objective Data Labs 10/30/22 06:21 10/30/22 06:21 Labs: Laboratory Results - last 24 hr 10/26/22 10/29/22 10/29/22 09:06 11:25 12:39 WBC RBC Hgb Hct MCV MCH MCHC RDW Plt Count MPV Absolute Nucleated RBC Nucleated RBC % (auto) PT INR Sodium Potassium Chloride Carbon Dioxide Anion Gap BUN Creatinine Estim Creat Clear Calc Estimated GFR POC Glucose 145 H Random Glucose Calcium Blood Type A Positive Antibody Screen NEGATIVE Crossmatch See Detail 10/29/22 10/29/22 10/29/22 16:15 16:30 19:45 WBC 4.6 L RBC 2.60 L Hgb 7.4 L Hct 24.4 L MCV 93.8 MCH 28.5 MCHC 30.3 L RDW 15.9 Plt Count 54 L MPV 11.5 Absolute Nucleated RBC 0.000 Nucleated RBC % (auto) 0.0 PT INR Sodium Potassium Chloride Carbon Dioxide Anion Gap BUN Creatinine Estim Creat Clear Calc Estimated GFR POC Glucose 120 H 131 H Random Glucose Calcium Blood Type Antibody Screen Crossmatch 10/29/22 10/30/22 10/30/22 20:51 06:21 07:38 WBC 4.2 L RBC 2.68 L Hgb 7.5 L Hct 25.3 L MCV 94.4 MCH 28.0 MCHC 29.6 L RDW 15.9 Plt Count 49 L MPV 11.4 Absolute Nucleated RBC 0.000 Nucleated RBC % (auto) 0.0 PT 27.1 H INR 2.2 H Sodium 142 Potassium 3.5 Chloride 98 Carbon Dioxide 39 H Anion Gap 9 L BUN 9 Creatinine 0.71 Estim Creat Clear Calc 96.9 Estimated GFR > 60 POC Glucose 172 H 118 H Random Glucose 125 H Calcium 8.4 Blood Type Antibody Screen Crossmatch 10/30/22 11:34 WBC RBC Hgb Hct MCV MCH MCHC RDW Plt Count MPV Absolute Nucleated RBC Nucleated RBC % (auto) PT INR Sodium Potassium Chloride Carbon Dioxide Anion Gap BUN Creatinine Estim Creat Clear Calc Estimated GFR POC Glucose 209 H Random Glucose Calcium Blood Type Antibody Screen Crossmatch Microbiology Microbiology Results: Microbiology 10/27/22 13:15 Thoracentesis Fluid Gram Stain - Final 10/27/22 13:15 Thoracentesis Fluid Anaerobic Culture - Preliminary No growth to date. 10/27/22 13:15 Thoracentesis Fluid Body Fluid Culture - Final No growth after 2 days Procedures Date of Service Date of Service: 10/30/22 Progress Note: A&P Assessment and plan (1) Hepatic encephalopathy: Status: Acute (2) Liver cirrhosis: Status: Acute (3) Pleural effusion, right: Status: Acute (4) Hydrothorax: Status: Acute (5) Acute on chronic anemia: Status: Acute Plan Worsening pleural effusion and compressive atelectasis. Mucus plugging not ruled out. Pt also noted to be more encephalopathic on exam today. Plan: - CONSISTENT po lactulose TID for goal 2-3 loose BMs (pt noted to get only 1-2 doses per day of lactulose per APR) - Add rifaximin 550mg BID - Chest physiotherapy - Consider pulm consultation - Increase lasix to 60mg and spironolactone to 150mg once daily - Add protein shakes - Daily MELD labs Time Spent With Patient Time: Total time managing care of this patient today ____ minutes. Quality Stroke Does the patient have a stroke diagnosis?: No VTE Prior VTE?: No VTE Risk Level:: Medical - moderate - high VTE Device Contraindication: N/A - Device Ordered VTE Drug Contraindication: Treatment Not Indicated
[2022-10-30 16:29] LABS: Fibrinogen 257 MG/DL (259-690)
[2022-10-30 17:52] VITALS: BP 159/73; PULSE 86; RESP 18; TEMP 37; O2SAT 96
[2022-10-30 18:13] LABS: Glucose, Whole Blood 117 mg/dL (60-115)
[2022-10-30] MEDS: cefTRIAXone sodium 1 GM in 0.9 % Sodium Chloride 50 ML IV (18:25)
[2022-10-30 19:00] VITALS: BP 130/78; PULSE 80; RESP 18; TEMP 36.9; O2SAT 96
--- NOTE | 2022-10-30 19:55 | PC.NURSE ---
Pt A&OX4. c/o heaviness in chest this am and nausea asked to increase oxygen from 2-4L via nasal cannula. LS dim minimal air movement to right side, dim with expiratory wheezes to left. Sats 96-98. Dr Welsh notified. IV lasix given per order. RT notified of concerns. Repeat chest xray completed in am, STAT CT chest in afternoon reported to Dr Welsh. Pt marilee in afternoon although stable on 4L, vitals unchanged. IV dilaudid given for pain with good effect. Continues IV antibiotics per order. Plan for chest tube placement. Will continue to monitor and report changes
--- NOTE | 2022-10-30 20:32 | HO.POSTANES ---
Post Anesthesia Evaluation Post Anesthesia Evaluation Date of Service: 10/30/22 Vital Signs: Vital Signs Temp Pulse Resp BP Pulse Ox O2 Del Method O2 Flow Rate 10/30/22 19:00 98.5 F 80 18 130/78 96 Nasal Cannula 4 10/30/22 17:52 98.6 F 86 18 159/73 H 96 Nasal Cannula 4 Anesthesia: General Mental Status: Awake Pain Control: Satisfactory Nausea/Vomiting: None Hydration: Adequate Anesthesia-Related Issues: No Anes. Related Issues
[2022-10-30 20:49] LABS: Glucose, Whole Blood 145 mg/dL (60-115)
[2022-10-30] MEDS: Acetaminophen 325 MG TABLET 650 MG PO (21:55)
[2022-10-30] MEDS: Acyclovir 200 MG CAPSULE 400 MG PO (21:56)
[2022-10-30] MEDS: Omeprazole 20 MG CAPSULE.DR PO (21:58)
--- NOTE | 2022-10-30 22:55 | PM.CNPUL ---
History of Present Illness History of Present Illness Consult date: 10/30/22 Chief complaint: symptomatic blood loss anemia Narrative: This is an in patient pulmonary consultation. 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 The patient has pancytopenia and follows with Hematology. She presented to the ED. Chest x-ray showed persistent large right pleural effusion. She underwent a thoracentesis, but developed pain after 1.2 Liters at which point the procedure was termintaed. Repeat imaging demonstrated a persistent large right sided effusion. She still has some right sided pleuritic chest pain. Review of Systems Review of Systems: General: No fevers, malaise, unintentional weight loss. +fatigue HEENT: No blurred vision, diplopia. No sore throat, nasal congestion, rhinorrhea, sinus pain, ear pain Cardiovascular: + chest pain, palpitations, or leg edema Respiratory: +sob. No wheezing, cough GI: No abdominal pain, nausea, vomiting, diarrhea, constipation, melena, hematochezia : No dysuria, hematuria, increased urinary frequency, decreased urinary output MSK: No myalgia, back pain Neuro: No headaches, weakness, paresthesias Skin: No rashes or lesions ENT: Reports Normal hearing present Neurologic: Reports Normal hearing present [facility] Past Medical History Medical History History of hepatitis C COPD (chronic obstructive pulmonary disease) Hydrothorax Pleural effusion, right Iron deficiency anemia Ascites of liver Liver cirrhosis Hypertension, essential Hypothyroidism Allergic rhinitis Lipid disorder Rosacea Rheumatoid arthritis 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 Other Mental health disorder Substance use disorder Surgical History Surgical History History of hernia repair History of bowel resection History of appendectomy Social History Social History Household Members: None Housing: Apartment Are you a primary care team coordinator scheduler to a significant other at home: No Do you presently have visiting nurse or other home services: No Alcohol intake: never Patient Tobacco Use Status: Current everyday Tobacco user Tobacco use type: Cigarette Cigarettes Per Day: 4 Years Smoked: 17 years old e-Cigarette/Vaping Use: Never Used service: No Current occupational status: employed Cognitive needs: No Hearing needs: No Vision needs: No Meds Allergies Allergy/AdvReac Type Severity Reaction Status Date / Time ciprofloxacin [Cipro] Allergy Unknown swelling Verified 10/26/22 09:11 of the throat , hives nitrofurantoin AdvReac Liver Verified 10/26/22 09:11 [From Macrobid] cirrhosis decompensation Active Medications: Current Medications Acetaminophen (Acetaminophen 325 Mg Tablet) 650 mg PO Q6H PRN PRN Reason: Pain, Mild (Pain Scale 1-3) Last Admin: 10/30/22 21:55 Dose: 650 mg Acyclovir (Acyclovir 200 Mg Capsule) 400 mg PO BEDTIME FLORENCIO Last Admin: 10/30/22 21:56 Dose: 400 mg Albuterol Sulfate (Albuterol Sulfate (0.083%) 2.5 Mg/3 Ml Vial.Neb) 2.5 mg INHALE ONCE PRN PRN Reason: Wheezing Albuterol/Ipratropium (Albuterol/Iprat 2.5/0.5mg 3 Ml Ampul.Neb) 3 ml INHALE Q4H PRN PRN Reason: Wheezing Last Admin: 10/29/22 20:24 Dose: 3 ml Carvedilol (Carvedilol 3.125 Mg Tablet) 3.125 mg PO BID FLORENCIO; Protocol Last Admin: 10/30/22 21:58 Dose: 3.125 mg Dextrose (Dextrose 50 % 25 Gm/50 Ml Syringe) 25 gm IVPUSH Q15M PRN; Protocol PRN Reason: per Hypoglycemia Standing Ord. Docusate Sodium (Docusate Sodium 100 Mg Capsule) 100 mg PO DAILY PRN PRN Reason: Constipation Fluticasone Propionate (Fluticasone Propionate Nasal 16 Gm [place]) 1 spray NOSTRIL-B DAILY PRN PRN Reason: Allergy Symptoms Furosemide (Furosemide 40 Mg Tablet) 40 mg PO DAILY [facility]; Protocol Last Admin: 10/29/22 08:19 Dose: 40 mg Furosemide (Furosemide 40 Mg/4 Ml Vial) 40 mg IVPUSH BID@0900,1800 [facility]; Protocol Last Admin: 10/30/22 18:25 Dose: 40 mg Glucose (Glucose Gel 15 Gm Gel..Gram.) 15 gm PO Q15M PRN; Protocol PRN Reason: per Hypoglycemia Standing Ord. Hydromorphone HCl (Hydromorphone Hcl 1 Mg/Ml Syringe) 0.6 mg IVPUSH Q4H PRN; Protocol PRN Reason: severe pain Last Admin: 10/30/22 18:24 Dose: 0.6 mg Ceftriaxone Sodium 1 gm/ (Sodium Chloride) 50 mls @ 100 mls/hr IV Q24H [facility] Last Infusion: 10/30/22 19:40 Dose: Infused Insulin Human Lispro (Insulin Lispro 100 Unit/Ml 3 Ml Vial) 0 unit SUBCUT QIDACHS [facility]; Protocol Last Admin: 10/30/22 21:24 Dose: Not Given Lactulose (Lactulose 20 Gm/30 Ml Solution) 30 gm PO TID [facility] Last Admin: 10/30/22 21:58 Dose: Not Given Levothyroxine Sodium (Levothyroxine Sodium 50 Mcg Tablet) 50 mcg PO DAILY@0600 [facility] Last Admin: 10/30/22 06:08 Dose: 50 mcg Methadone HCl (Methadone Hcl 20 Mg/2 Ml Oral.Conc) 76 mg PO DAILY [facility] Last Admin: 10/30/22 08:52 Dose: 76 mg Multivitamins/Vitamin C (Multivitamin Tablet) 1 tab PO DAILY [facility] Last Admin: 10/30/22 08:52 Dose: 1 tab Omeprazole (Omeprazole 20 Mg Capsule.Dr) 20 mg PO BEDTIME [facility] Last Admin: 10/30/22 21:58 Dose: 20 mg Ondansetron HCl (Ondansetron Hcl 4 Mg/2 Ml Vial) 4 mg IVPUSH Q8H PRN PRN Reason: Nausea and Vomiting Last Admin: 10/30/22 08:04 Dose: 4 mg Rifaximin (Rifaximin 550 Mg Tablet) 550 mg PO BID [facility] Last Admin: 10/30/22 21:58 Dose: 550 mg Sodium Chloride (0.9 % Sodium Chloride Flush 3 Ml Syringe) 3 ml IVFLUSH QSHIFT [facility] Last Admin: 10/30/22 18:06 Dose: Not Given Spironolactone (Spironolactone 25 Mg Tablet) 50 mg PO BID [facility] Last Admin: 10/30/22 21:56 Dose: 50 mg Home Medications Medication Instructions Recorded Confirmed Last Taken Type methadone 10 mg/mL oral concentrate 76 mg PO DAILY 05/04/21 10/27/22 10/26/22 History levothyroxine 50 mcg tablet 50 mcg PO DAILY@0600 07/28/22 10/26/22 10/26/22 History multivitamin 1 tab PO DAILY 07/28/22 10/26/22 07/27/22 History acyclovir 400 mg tablet 400 mg PO BEDTIME 08/18/22 10/26/22 Unknown History amiloride 5 mg tablet 5 mg PO DAILY 10/26/22 10/26/22 Unknown History fluticasone propionate 50 1 spray intranasal DAILY PRN 10/26/22 10/26/22 Unknown History mcg/actuation nasal Allergy Symptoms spray,suspension (Flonase Allergy Relief) furosemide 40 mg tablet 40 mg PO DAILY 10/26/22 10/26/22 Unknown History Physical Exam Vital Signs: Vital Signs: Last Vital Signs Temp 98.5 F 10/30/22 19:00 Pulse 80 10/30/22 19:00 Resp 18 10/30/22 19:00 BP 130/78 10/30/22 19:00 Pulse Ox 96 10/30/22 19:00 O2 Del Method Nasal Cannula 10/30/22 19:00 O2 Flow Rate 4 10/30/22 19:00 Oxygen Flow Rate 3 10/28/22 15:41 BMI result Body Mass Index 31.6 Const: General: cooperative, no acute distress and alert Orientation/consciousness: patient oriented x3 HEENT: Head: Yes normal to inspection, Yes normocephalic and Yes atraumatic Ears: hearing grossly normal bilaterally and external ears normal Eyes: General: appearance normal, both eyes and all related structures Eyelids: Yes eyelids normal Sclerae: sclerae normal EOM: EOMs intact bilaterally Neck: Neck: Yes normal visual inspection and Yes no lymphadenopathy Lymphatic: no lymphadenopathy noted Chest: Chest palpation & inspection: normal inspection of the chest Resp: Other: diminished sounds on the mid to lower right, scattered expiratory wheezing throughout Effort & Inspection: normal respiratory effort, able to speak in complete sentences, no tripod positioning and no use of accessory muscles Auscultation: breath sounds absent and diminished lung sounds Cardio: Rate: regular rate Rhythm: regular rhythm Skin: Other: warm, dry General skin exam: no rashes or lesions noted Neuro: General: patient oriented x3 Cranial nerves: Yes Normal hearing present Cognition (Neuro): normal cognition Gait exam (Neuro): Normal gait present Extrem: General: Yes normal to inspection, Yes capillary refill normal, Yes no clubbing, cyanosis or edema and Yes no pedal edema Psych: Appearance: grossly normal and well kempt Speech and movement: Normal speech and movement present and Clear speech present Affect: normal affect Attitude: cooperative Thought process: Normal thought process present Thought content: Normal thought content present Insight: Good insight present (Psych) Judgement: Good judgement present (Psych) Results Laboratory Findings 10/30/22 06:21 10/30/22 06:21 ABG, PT/INR, D-dimer: PT/INR, D-dimer PT 27.1 SEC (11.1-13.3) H 10/30/22 06:21 INR 2.2 (0.9-1.1) H 10/30/22 06:21 Abnormal lab findings: Abnormal Labs 10/26/22 10/26/22 10/26/22 09:06 10:53 16:11 WBC 3.3 L RBC 1.78 L Hgb 4.6 L* 6.0 L* D Hct 16.1 L* 20.7 L* D MCH 25.8 L MCHC 28.6 L RDW 17.3 H Plt Count 93 L Lymph % (Auto) Webster % (Auto) 11.7 H Lymph # (Auto) 0.9 L Absolute Nucleated RBC Nucleated RBC % (auto) PT 36.5 H INR 3.0 H Fibrinogen Carbon Dioxide 32 H Anion Gap 9 L POC Glucose Random Glucose Total Bilirubin 1.1 H Direct Bilirubin 0.6 H Ammonia Total Protein 5.8 L Albumin 2.4 L Crossmatch See Detail 10/26/22 10/26/22 10/26/22 16:12 17:16 20:19 WBC RBC Hgb Hct MCH MCHC RDW Plt Count Lymph % (Auto) [place] % (Auto) Lymph # (Auto) Absolute Nucleated RBC Nucleated RBC % (auto) PT INR Fibrinogen Carbon Dioxide Anion Gap POC Glucose 119 H 181 H Random Glucose Total Bilirubin Direct Bilirubin Ammonia 65 H Total Protein Albumin Crossmatch 10/26/22 10/27/22 10/27/22 21:02 00:25 06:22 WBC RBC 2.73 L D 2.74 L Hgb 7.2 L 7.6 L 7.3 L Hct 24.8 L 25.5 L 24.8 L MCH 26.4 L 26.6 L MCHC 29.0 L 29.4 L RDW 16.1 H 16.3 H Plt Count 96 L 96 L Lymph % (Auto) 16.5 L Webster % (Auto) 12.6 H Lymph # (Auto) 1.0 L Absolute Nucleated RBC Nucleated RBC % (auto) PT 26.1 H D INR 2.1 H Fibrinogen Carbon Dioxide 33 H Anion Gap 11 L POC Glucose Random Glucose 130 H Total Bilirubin Direct Bilirubin Ammonia Total Protein Albumin Crossmatch 10/27/22 10/27/22 10/27/22 11:47 13:58 17:50 WBC RBC Hgb Hct MCH MCHC RDW Plt Count Lymph % (Auto) [place] % (Auto) Lymph # (Auto) Absolute Nucleated RBC Nucleated RBC % (auto) PT INR Fibrinogen Carbon Dioxide Anion Gap POC Glucose 138 H 137 H 117 H Random Glucose Total Bilirubin Direct Bilirubin Ammonia Total Protein Albumin Crossmatch 10/27/22 10/28/22 10/28/22 19:48 06:36 07:14 WBC RBC 2.60 L Hgb 7.4 L Hct 24.5 L MCH MCHC 30.2 L RDW 16.1 H Plt Count 71 L D Lymph % (Auto) Webster % (Auto) Lymph # (Auto) Absolute Nucleated RBC 0.020 H Nucleated RBC % (auto) 0.4 H PT 27.3 H INR 2.2 H Fibrinogen Carbon Dioxide 37 H Anion Gap 6 L POC Glucose 143 H 136 H Random Glucose 141 H Total Bilirubin 2.0 H Direct Bilirubin Ammonia Total Protein 5.8 L Albumin 2.4 L Crossmatch 10/28/22 10/28/22 10/28/22 11:48 15:39 20:05 WBC RBC Hgb Hct MCH MCHC RDW Plt Count Lymph % (Auto) [place] % (Auto) Lymph # (Auto) Absolute Nucleated RBC Nucleated RBC % (auto) PT INR Fibrinogen Carbon Dioxide Anion Gap POC Glucose 178 H 177 H 159 H Random Glucose Total Bilirubin Direct Bilirubin Ammonia Total Protein Albumin Crossmatch 10/29/22 10/29/22 10/29/22 07:17 07:48 12:39 WBC RBC 2.51 L Hgb 7.0 L* Hct 23.8 L MCH MCHC 29.4 L RDW Plt Count 59 L Lymph % (Auto) Webster % (Auto) Lymph # (Auto) Absolute Nucleated RBC Nucleated RBC % (auto) PT 28.2 H INR 2.3 H Fibrinogen Carbon Dioxide 35 H Anion Gap 11 L POC Glucose 135 H 145 H Random Glucose 147 H Total Bilirubin 1.2 H Direct Bilirubin Ammonia Total Protein 5.9 L Albumin 2.5 L Crossmatch 10/29/22 10/29/22 10/29/22 16:15 16:30 19:45 WBC 4.6 L RBC 2.60 L Hgb 7.4 L Hct 24.4 L MCH MCHC 30.3 L RDW Plt Count 54 L Lymph % (Auto) [place] % (Auto) Lymph # (Auto) Absolute Nucleated RBC Nucleated RBC % (auto) PT INR Fibrinogen Carbon Dioxide Anion Gap POC Glucose 120 H 131 H Random Glucose Total Bilirubin Direct Bilirubin Ammonia Total Protein Albumin Crossmatch 10/29/22 10/30/22 10/30/22 20:51 06:21 07:38 WBC 4.2 L RBC 2.68 L Hgb 7.5 L Hct 25.3 L MCH MCHC 29.6 L RDW Plt Count 49 L Lymph % (Auto) [place] % (Auto) Lymph # (Auto) Absolute Nucleated RBC Nucleated RBC % (auto) PT 27.1 H INR 2.2 H Fibrinogen 257 L Carbon Dioxide 39 H Anion Gap 9 L POC Glucose 172 H 118 H Random Glucose 125 H Total Bilirubin Direct Bilirubin Ammonia Total Protein Albumin Crossmatch 10/30/22 10/30/22 10/30/22 11:34 17:58 20:36 WBC RBC Hgb Hct MCH MCHC RDW Plt Count Lymph % (Auto) [place] % (Auto) Lymph # (Auto) Absolute Nucleated RBC Nucleated RBC % (auto) PT INR Fibrinogen Carbon Dioxide Anion Gap POC Glucose 209 H 117 H 145 H Random Glucose Total Bilirubin Direct Bilirubin Ammonia Total Protein Albumin Crossmatch Microbiology: Microbiology 10/27/22 13:15 Thoracentesis Fluid Gram Stain - Final 10/27/22 13:15 Thoracentesis Fluid Anaerobic Culture - Preliminary No growth to date. 10/27/22 13:15 Thoracentesis Fluid Body Fluid Culture - Final No growth after 2 days Assessment and Plan (1) Pleural effusion, right: Status: Acute (2) COPD (chronic obstructive pulmonary disease): Qualifiers: COPD type: chronic bronchitis Chronic bronchitis type: simple Qualified Code(s): J41.0 - Simple chronic bronchitis Status: Acute (3) Hydrothorax: Status: Acute Plan The patient has a large right sided effusion, now with chest pain while trying to evacuate. This suggest that the patient a component of a trap lung. No evidence of entrapment without any evidence of inflammation. She continues to be symptomatic requiring oxygen supplementation. REC: Thoracic surgery eval for possible VATS ?decortication Could attemp a chest tube drain first, but likely may result in a hydropneumothorax continue diuresis Time Spent With Patient Time: Total time managing care of this patient today ____ minutes. Procedures Date of Service Date of Service: 10/30/22
[2022-10-31] VITALS (8 sets, daily range): BP systolic 102–147; BP diastolic 50–80; PULSE 74–96; RESP 12–20; TEMP 36.4–37.6; O2SAT 94–97
[2022-10-31] MEDS: HYDROmorphone HCl 1 MG/ML SYRINGE 0.6 MG IVPUSH ×5 (03:17→21:32)
[2022-10-31] MEDS: Levothyroxine Sodium 50 MCG TABLET PO (06:19)
[2022-10-31 06:23] LABS: Hemoglobin 7.7 g/dl (12.0-16.0); PLT CLUMP 1
[2022-10-31 06:24] LABS: Venous Blood Gas Refer to POC result
[2022-10-31 06:24] LABS: VBG Base Excess 39.5 mmol/L; VBG HCO3 66 mmol/L (22-26); VBG pCO2 73 mmHg; VBG pH 7.56 (7.32-7.43); VBG pO2 70 mmHg
[2022-10-31 06:25] LABS: Hematocrit 25.2 % (37.0-47.0); Mean Corpuscular HGB Conc 30.6 g/dl (31.0-35.0); Mean Corpuscular Hemoglobin 28.7 pg (27.0-33.0); Mean Platelet Volume 11.1 fL (9.4-12.3); Red Blood Count 2.68 X10*6/uL (4.20-5.50); Red Cell Distribution Width 16.1 % (11.0-16.0)
[2022-10-31 06:26] LABS: Platelet Count 47 X10*3/uL (160-400); White Blood Count 3.9 X10*3/uL (4.8-10.8)
[2022-10-31 06:28] LABS: INTERNATIONAL NORM RATIO 2.5 (0.9-1.1)
[2022-10-31 06:47] LABS: Anion Gap 11 (12-20); Blood Urea Nitrogen 9 mg/dL (9-16); Calcium 8.2 mg/dL (8.4-10.2); Carbon Dioxide 41 mmol/L (22-29); Chloride 93 mmol/L (96-108); Creatinine Clr Calc Pharmacy 104.3; Estimated Glomerular Filt Rate > 60; Glucose Random 73 mg/dL (60-115); Magnesium 1.3 mg/dL (1.6-2.6); Potassium 3.7 mmol/L (3.3-5.1); Sodium 141 mmol/L (135-145)
[2022-10-31 07:28] LABS: Glucose, Whole Blood 81 mg/dL (60-115)
[2022-10-31] MEDS: carvediloL 3.125 MG TABLET PO ×2 (09:52→20:13)
[2022-10-31] MEDS: rifAXIMin 550 MG TABLET PO ×2 (09:53→20:13)
[2022-10-31] MEDS: methADONE HCl 20 MG/2 ML ORAL.CONC 76 MG PO (09:53)
[2022-10-31] MEDS: Multivitamin TABLET 1 TAB PO (09:53)
[2022-10-31] MEDS: Furosemide 40 MG/4 ML VIAL IVPUSH (09:53)
[2022-10-31] MEDS: Spironolactone 25 MG TABLET 50 MG PO (09:56)
[2022-10-31 11:30] LABS: Glucose, Whole Blood 122 mg/dL (60-115)
--- NOTE | 2022-10-31 12:19 | P.PNIM_ITS ---
Subjective Subjective Date of Service: 10/31/22 Interval History: Feels less short of breath On 3.5L O2 via NC No GI bleeding Review of Systems Review of Systems: Yes all other systems are reviewed and are negative Physical Exam 2 Vital Signs: Vital Signs: Last Vital Signs Temp 98.9 F 10/31/22 11:14 Pulse 88 10/31/22 11:14 Resp 16 10/31/22 11:14 BP 147/80 H 10/31/22 11:14 Pulse Ox 95 10/31/22 11:14 O2 Del Method Nasal Cannula 10/31/22 11:14 O2 Flow Rate 4 10/31/22 11:14 Oxygen Flow Rate 3 10/28/22 15:41 BMI result Body Mass Index 31.6 Gen: NAD HEENT: sclera anicteric, moist and pale mucus membranes Neck: supple, port R neck without any bleeding Lungs: no air entry on R Heart: regular rate and rhythm, no murmurs Abd: soft, non-tender, non-distended Ext: no edema Skin: warm/well-perfused Neuro: alert and oriented x3, asterixis present Psych: appropriate affect Objective Data Active Medications Acetaminophen (Acetaminophen 325 Mg Tablet) 650 mg PO Q6H PRN PRN Reason: Pain, Mild (Pain Scale 1-3) Last Admin: 10/30/22 21:55 Dose: 650 mg Documented By: MARSHALL Acyclovir (Acyclovir 200 Mg Capsule) 400 mg PO BEDTIME FLORENCIO Last Admin: 10/30/22 21:56 Dose: 400 mg Documented By: MARSHALL Albuterol Sulfate (Albuterol Sulfate (0.083%) 2.5 Mg/3 Ml Vial.Neb) 2.5 mg INHALE ONCE PRN PRN Reason: Wheezing Albuterol/Ipratropium (Albuterol/Iprat 2.5/0.5mg 3 Ml Ampul.Neb) 3 ml INHALE Q4H PRN PRN Reason: Wheezing Last Admin: 10/29/22 20:24 Dose: 3 ml Documented By: KALPANA Carvedilol (Carvedilol 3.125 Mg Tablet) 3.125 mg PO BID [facility]; Protocol Last Admin: 10/31/22 09:52 Dose: 3.125 mg Documented By: ARCHANA Dextrose (Dextrose 50 % 25 Gm/50 Ml Syringe) 25 gm IVPUSH Q15M PRN; Protocol PRN Reason: per Hypoglycemia Standing Ord. Docusate Sodium (Docusate Sodium 100 Mg Capsule) 100 mg PO DAILY PRN PRN Reason: Constipation Fluticasone Propionate (Fluticasone Propionate Nasal 16 Gm [place]) 1 spray NOSTRIL-B DAILY PRN PRN Reason: Allergy Symptoms Furosemide (Furosemide 40 Mg Tablet) 40 mg PO DAILY [facility]; Protocol Last Admin: 10/29/22 08:19 Dose: 40 mg Documented By: MAXIMO Furosemide (Furosemide 40 Mg/4 Ml Vial) 40 mg IVPUSH BID@0900,1800 [facility]; Protocol Last Admin: 10/31/22 09:53 Dose: 40 mg Documented By: ARCHANA Glucose (Glucose Gel 15 Gm Gel..Gram.) 15 gm PO Q15M PRN; Protocol PRN Reason: per Hypoglycemia Standing Ord. Hydromorphone HCl (Hydromorphone Hcl 1 Mg/Ml Syringe) 0.6 mg IVPUSH Q4H PRN; Protocol PRN Reason: severe pain Last Admin: 10/31/22 06:56 Dose: 0.6 mg Documented By: KAPIL Ceftriaxone Sodium 1 gm/ (Sodium Chloride) 50 mls @ 100 mls/hr IV Q24H [facility] Last Infusion: 10/30/22 19:40 Dose: Infused Documented By: PAMELA Magnesium Sulfate (Magnesium Sulfate/H2o) 2 gm in 50 mls @ 25 mls/hr IV ONCE [facility] Stop: 11/01/22 09:29 Insulin Human Lispro (Insulin Lispro 100 Unit/Ml 3 Ml Vial) 0 unit SUBCUT QIDACHS [facility]; Protocol Last Admin: 10/31/22 09:18 Dose: Not Given Documented By: ARCHANA Non-Admin Reason: No Insulin Coverage Lactulose (Lactulose 20 Gm/30 Ml Solution) 30 gm PO TID [facility] Last Admin: 10/31/22 09:59 Dose: Not Given Documented By: ARCHANA Non-Admin Reason: Patient Refused Levothyroxine Sodium (Levothyroxine Sodium 50 Mcg Tablet) 50 mcg PO DAILY@0600 [facility] Last Admin: 10/31/22 06:19 Dose: 50 mcg Documented By: KAPIL Methadone HCl (Methadone Hcl 20 Mg/2 Ml Oral.Conc) 76 mg PO DAILY [facility] Last Admin: 10/31/22 09:53 Dose: 76 mg Documented By: ARCHANA Multivitamins/Vitamin C (Multivitamin Tablet) 1 tab PO DAILY [facility] Last Admin: 10/31/22 09:53 Dose: 1 tab Documented By: ARCHANA Omeprazole (Omeprazole 20 Mg Capsule.Dr) 20 mg PO BEDTIME [facility] Last Admin: 10/30/22 21:58 Dose: 20 mg Documented By: MARSHALL Ondansetron HCl (Ondansetron Hcl 4 Mg/2 Ml Vial) 4 mg IVPUSH Q8H PRN PRN Reason: Nausea and Vomiting Last Admin: 10/30/22 08:04 Dose: 4 mg Documented By: ARCHANA Rifaximin (Rifaximin 550 Mg Tablet) 550 mg PO BID [facility] Last Admin: 10/31/22 09:53 Dose: 550 mg Documented By: ARCHANA Sodium Chloride (0.9 % Sodium Chloride Flush 3 Ml Syringe) 3 ml IVFLUSH QSHIFT [facility] Last Admin: 10/31/22 09:18 Dose: Not Given Documented By: ARCHANA Non-Admin Reason: No Access Spironolactone (Spironolactone 25 Mg Tablet) 50 mg PO BID [facility] Last Admin: 10/31/22 09:56 Dose: 50 mg Documented By: ARCHANA Labs 10/31/22 06:12 10/31/22 06:12 Labs: Laboratory Results - last 24 hr 10/30/22 10/30/22 10/30/22 06:21 17:58 20:36 MCV MCH MCHC RDW Plt Count MPV Absolute Nucleated RBC Nucleated RBC % (auto) PT INR Fibrinogen 257 L VBG pH VBG pCO2 VBG pO2 VBG HCO3 VBG O2 Saturation VBG Base Excess Anion Gap Estim Creat Clear Calc Estimated GFR POC Glucose 117 H 145 H Random Glucose Calcium Magnesium 10/31/22 10/31/22 10/31/22 06:12 06:20 07:23 MCV 94.0 MCH 28.7 MCHC 30.6 L RDW 16.1 H Plt Count 47 L MPV 11.1 Absolute Nucleated RBC 0.000 Nucleated RBC % (auto) 0.0 PT 30.0 H INR 2.5 H Fibrinogen VBG pH 7.56 H VBG pCO2 73 VBG pO2 70 VBG HCO3 66 H VBG O2 Saturation 97.0 VBG Base Excess 39.5 Anion Gap 11 L Estim Creat Clear Calc 104.3 Estimated GFR > 60 POC Glucose 81 Random Glucose 73 Calcium 8.2 L Magnesium 1.3 L* 10/31/22 11:12 MCV MCH MCHC RDW Plt Count MPV Absolute Nucleated RBC Nucleated RBC % (auto) PT INR Fibrinogen VBG pH VBG pCO2 VBG pO2 VBG HCO3 VBG O2 Saturation VBG Base Excess Anion Gap Estim Creat Clear Calc Estimated GFR POC Glucose 122 H Random Glucose Calcium Magnesium Microbiology Microbiology Results: Microbiology 10/27/22 13:15 Gram Stain - Final Thoracentesis Fluid Anaerobic Culture - Preliminary No growth to date. Body Fluid Culture - Final No growth after 2 days Assessment and Plan (1) Hepatic encephalopathy: Status: Acute Plan d6 52yo F with decompensated HCV cirrhosis with hepatic hydrothorax, OUD on methadone, COPD, RA, Crohn's disease, hypothyroidism, DM2 sent in from [facility] where she was due to receive port for blood draws and infusions, but found to be profoundly anemic with Hb 5, FOBT+ transfused total 3u pRBCs, underwent thoracentesis + EGD 10/27/22 port placed 10/29/22 now with right lung-whiteout right lung whiteout from recurrent pleural effusion from hepatic hydrothorax - Discussed with Pulmonology + Thoracic Surgery. Plan chest tube as temporizing measure until TIPS- will contact liver transplant center. If develops respiratory distress, will need emergent chest tube. - Continue spironolactone and IV furosemide - S/p thoracentesis with removal of 1200 mL transudate 10/27/22 hepatic hydrothorax - Diagnostic/therapeutic thoracentesis with removal of 1200 mL on 10/27, appears transudative; cultures negative - Increased spironolactone, give furosemide IV acute hypoxic respiratory failure - Supplemental oxygen acute/subacute blood loss anemia due to GI - Transfused 3u PRBCs with IV furosemide, appropriate response in H+H - EGD + C-scope by Dr Garcia 10/27: EGD Findings:? * Esophagus:? Normal mucosa noted in the entire esophagus. The Z-line is at 38 cm. 2 columns of medium sized varices were noted in the lower esophagus without high risk stigmata. * Stomach:?Diffuse congestion and erythema in mosaic pattern consistent with portal hypertensive gastropathy was noted in the whole stomach. Random cold forceps biopsies were taken to r/o H pylori. * Duodenum:? Normal duodenal mucosa to the extent visualised. Cold forceps biopsies were taken from the duodenal bulb and second portion of the duodenum to r/o celiac sprue. Additional intervention: A [employer] multibander was installed on the tip of the scope in the usual fashion and one band was deployed. Complete decompression of both variceal columns was noted thereafter. Colonoscopy Procedure:? Findings: Mucosa: Visualisation for adequate polyp detection was limited by copious stool. However no active bleeding or large mass was noted. Protruding lesions: * Large internal hemorrhoids with stigmata of recent bleeding. - IV->PO PPI, d/c'ed octreotide, continue IV ceftriaxone for SBP/SBE ppx - Carvedilol for variceal hemorrhage prophylaxis - f/u biopsy results - Outpt: discuss small bowel evaluation, repeat C-scope in 1yr - Port placement done 10/29/22 for infusions + blood draws as pt has poor venous access Coagulopathy due to cirrhosis - Given vitamin K + 2u FFP Hepatic encephalopathy - Lactulose/rifaximin [the rifaximin is new and will also be prescribed upon discharge] HTN - Continue carvedilol to replace metoprolol COPD without acute exac - Continue home inhalers thrombocytopenia - Due to cirrhosis; monitor CBC Crohn's disease - Quiescent hypothyroidism - LT4 DM2 - Correction-dose lispro VTE ppx - SCDs given GIB/coagulopathy/thrombocytopenia dispo - PT evaluation declined In my clinical judgment, the patient requires continued inpatient hospitalization for the following reasons: hypoxia, chest tube, TIPS Time Spent With Patient Time: Total time managing care of this patient today _45___ minutes. Quality Stroke Does the patient have a stroke diagnosis?: No VTE Prior VTE?: No VTE Risk Level:: Medical - moderate - high VTE Device Contraindication: N/A - Device Ordered VTE Drug Contraindication: Treatment Not Indicated
--- NOTE | 2022-10-31 12:27 | P.PNIM_ITS ---
Subjective Subjective Date of Service: 11/14/22 Physical Exam 2 Vital Signs: Vital Signs: Last Vital Signs Temp 98.9 F 10/31/22 11:14 Pulse 88 10/31/22 11:14 Resp 16 10/31/22 11:14 BP 147/80 H 10/31/22 11:14 Pulse Ox 95 10/31/22 11:14 O2 Del Method Nasal Cannula 10/31/22 11:14 O2 Flow Rate 4 10/31/22 11:14 Oxygen Flow Rate 3 10/28/22 15:41 BMI result Body Mass Index 31.6 Objective Data Active Medications Acetaminophen (Acetaminophen 325 Mg Tablet) 650 mg PO Q6H PRN PRN Reason: Pain, Mild (Pain Scale 1-3) Last Admin: 10/30/22 21:55 Dose: 650 mg Documented By: MARSHALL Acyclovir (Acyclovir 200 Mg Capsule) 400 mg PO BEDTIME [facility]ORENC[facility] Last Admin: 10/30/22 21:56 Dose: 400 mg Documented By: MARSHALL Albuterol Sulfate (Albuterol Sulfate (0.083%) 2.5 Mg/3 Ml Vial.Neb) 2.5 mg INHALE ONCE PRN PRN Reason: Wheezing Albuterol/Ipratropium (Albuterol/Iprat 2.5/0.5mg 3 Ml Ampul.Neb) 3 ml INHALE Q4H PRN PRN Reason: Wheezing Last Admin: 10/29/22 20:24 Dose: 3 ml Documented By: KALPANA Carvedilol (Carvedilol 3.125 Mg Tablet) 3.125 mg PO BID [facility]; Protocol Last Admin: 10/31/22 09:52 Dose: 3.125 mg Documented By: ARCHANA Dextrose (Dextrose 50 % 25 Gm/50 Ml Syringe) 25 gm IVPUSH Q15M PRN; Protocol PRN Reason: per Hypoglycemia Standing Ord. Docusate Sodium (Docusate Sodium 100 Mg Capsule) 100 mg PO DAILY PRN PRN Reason: Constipation Fluticasone Propionate (Fluticasone Propionate Nasal 16 Gm [place]) 1 spray NOSTRIL-B DAILY PRN PRN Reason: Allergy Symptoms Furosemide (Furosemide 40 Mg Tablet) 40 mg PO DAILY [facility]; Protocol Last Admin: 10/29/22 08:19 Dose: 40 mg Documented By: MAXIMO Furosemide (Furosemide 40 Mg/4 Ml Vial) 40 mg IVPUSH BID@0900,1800 [facility]; Protocol Last Admin: 10/31/22 09:53 Dose: 40 mg Documented By: ARCHANA Glucose (Glucose Gel 15 Gm Gel..Gram.) 15 gm PO Q15M PRN; Protocol PRN Reason: per Hypoglycemia Standing Ord. Hydromorphone HCl (Hydromorphone Hcl 1 Mg/Ml Syringe) 0.6 mg IVPUSH Q4H PRN; Protocol PRN Reason: severe pain Last Admin: 10/31/22 06:56 Dose: 0.6 mg Documented By: KAPIL Ceftriaxone Sodium 1 gm/ (Sodium Chloride) 50 mls @ 100 mls/hr IV Q24H [facility] Last Infusion: 10/30/22 19:40 Dose: Infused Documented By: PAMELA Magnesium Sulfate (Magnesium Sulfate/H2o) 2 gm in 50 mls @ 25 mls/hr IV ONCE [facility] Stop: 11/01/22 09:29 Insulin Human Lispro (Insulin Lispro 100 Unit/Ml 3 Ml Vial) 0 unit SUBCUT QIDACHS [facility]; Protocol Last Admin: 10/31/22 09:18 Dose: Not Given Documented By: ARCHANA Non-Admin Reason: No Insulin Coverage Lactulose (Lactulose 20 Gm/30 Ml Solution) 30 gm PO TID [facility] Last Admin: 10/31/22 09:59 Dose: Not Given Documented By: ARCHANA Non-Admin Reason: Patient Refused Levothyroxine Sodium (Levothyroxine Sodium 50 Mcg Tablet) 50 mcg PO DAILY@0600 [facility] Last Admin: 10/31/22 06:19 Dose: 50 mcg Documented By: KAPIL Methadone HCl (Methadone Hcl 20 Mg/2 Ml Oral.Conc) 76 mg PO DAILY [facility] Last Admin: 10/31/22 09:53 Dose: 76 mg Documented By: ARCHANA Multivitamins/Vitamin C (Multivitamin Tablet) 1 tab PO DAILY [facility] Last Admin: 10/31/22 09:53 Dose: 1 tab Documented By: ARCHANA Omeprazole (Omeprazole 20 Mg Capsule.Dr) 20 mg PO BEDTIME [facility] Last Admin: 10/30/22 21:58 Dose: 20 mg Documented By: MARSHALL Ondansetron HCl (Ondansetron Hcl 4 Mg/2 Ml Vial) 4 mg IVPUSH Q8H PRN PRN Reason: Nausea and Vomiting Last Admin: 10/30/22 08:04 Dose: 4 mg Documented By: ARCHANA Rifaximin (Rifaximin 550 Mg Tablet) 550 mg PO BID [facility] Last Admin: 10/31/22 09:53 Dose: 550 mg Documented By: ARCHANA Sodium Chloride (0.9 % Sodium Chloride Flush 3 Ml Syringe) 3 ml IVFLUSH QSHIFT [facility] Last Admin: 10/31/22 09:18 Dose: Not Given Documented By: ARCHANA Non-Admin Reason: No Access Spironolactone (Spironolactone 25 Mg Tablet) 50 mg PO BID [facility] Last Admin: 10/31/22 09:56 Dose: 50 mg Documented By: ARCHANA Labs 11/03/22 09:10 11/03/22 09:00 Labs: Laboratory Results - last 24 hr 10/30/22 10/30/22 10/30/22 06:21 17:58 20:36 MCV MCH MCHC RDW Plt Count MPV Absolute Nucleated RBC Nucleated RBC % (auto) PT INR Fibrinogen 257 L VBG pH VBG pCO2 VBG pO2 VBG HCO3 VBG O2 Saturation VBG Base Excess Anion Gap Estim Creat Clear Calc Estimated GFR POC Glucose 117 H 145 H Random Glucose Calcium Magnesium 10/31/22 10/31/22 10/31/22 06:12 06:20 07:23 MCV 94.0 MCH 28.7 MCHC 30.6 L RDW 16.1 H Plt Count 47 L MPV 11.1 Absolute Nucleated RBC 0.000 Nucleated RBC % (auto) 0.0 PT 30.0 H INR 2.5 H Fibrinogen VBG pH 7.56 H VBG pCO2 73 VBG pO2 70 VBG HCO3 66 H VBG O2 Saturation 97.0 VBG Base Excess 39.5 Anion Gap 11 L Estim Creat Clear Calc 104.3 Estimated GFR > 60 POC Glucose 81 Random Glucose 73 Calcium 8.2 L Magnesium 1.3 L* 10/31/22 11:12 MCV MCH MCHC RDW Plt Count MPV Absolute Nucleated RBC Nucleated RBC % (auto) PT INR Fibrinogen VBG pH VBG pCO2 VBG pO2 VBG HCO3 VBG O2 Saturation VBG Base Excess Anion Gap Estim Creat Clear Calc Estimated GFR POC Glucose 122 H Random Glucose Calcium Magnesium Microbiology Microbiology Results: Microbiology 10/27/22 13:15 Gram Stain - Final Thoracentesis Fluid Anaerobic Culture - Preliminary No growth to date. Body Fluid Culture - Final No growth after 2 days Assessment and Plan (1) Hypokalemia: Status: Resolved (2) Pancytopenia: Status: Inactive Time Spent With Patient Time: Total time managing care of this patient today ____ minutes. Quality Stroke Does the patient have a stroke diagnosis?: No VTE Prior VTE?: No VTE Risk Level:: Medical - moderate - high VTE Device Contraindication: N/A - Device Ordered VTE Drug Contraindication: Treatment Not Indicated
[2022-10-31] MEDS: ondansetron HCL 4 MG/2 ML VIAL IVPUSH (12:49)
[2022-10-31 16:08] LABS: Glucose, Whole Blood 188 mg/dL (60-115)
[2022-10-31] MEDS: cefTRIAXone sodium 1 GM in 0.9 % Sodium Chloride 50 ML IV (17:21)
[2022-10-31] MEDS: Furosemide 40 MG/4 ML VIAL 80 MG IVPUSH (17:23)
[2022-10-31] MEDS: Insulin Lispro 100 UNIT/ML 3 ML VIAL SUBCUT ×2 (17:28→20:49)
[2022-10-31] MEDS: Lactulose 20 GM/30 ML SOLUTION 30 GM PO (20:13)
[2022-10-31] MEDS: Acyclovir 200 MG CAPSULE 400 MG PO (20:13)
[2022-10-31] MEDS: Omeprazole 20 MG CAPSULE.DR PO (20:13)
[2022-10-31] MEDS: Spironolactone 25 MG TABLET 100 MG PO (20:14)
[2022-10-31] MEDS: 0.9 % Sodium Chloride Flush 3 ML SYRINGE IVFLUSH (20:15)
[2022-10-31 20:39] LABS: Glucose, Whole Blood 231 mg/dL (60-115)
[2022-11-01] MEDS: Acetaminophen 325 MG TABLET 650 MG PO (00:35)
[2022-11-01] MEDS: HYDROmorphone HCl 1 MG/ML SYRINGE 0.6 MG IVPUSH ×5 (01:31→18:10)
[2022-11-01 03:43] VITALS: BP 101/67; PULSE 80; RESP 18; TEMP 36.8; O2SAT 97
[2022-11-01] MEDS: Levothyroxine Sodium 50 MCG TABLET PO (05:33)
[2022-11-01 07:20] LABS: Venous Blood Gas Refer to POC result
[2022-11-01 07:21] LABS: VBG Base Excess 32.2 mmol/L; VBG HCO3 59 mmol/L (22-26); VBG pCO2 71 mmHg; VBG pH 7.52 (7.32-7.43); VBG pO2 107 mmHg
[2022-11-01 07:25] LABS: Hematocrit 25.4 % (37.0-47.0); Hemoglobin 7.7 g/dl (12.0-16.0); Mean Corpuscular HGB Conc 30.3 g/dl (31.0-35.0); Mean Corpuscular Hemoglobin 29.1 pg (27.0-33.0); Mean Corpuscular Volume 95.8 fL (80.0-98.0); Mean Platelet Volume 12.2 fL (9.4-12.3); Red Blood Count 2.65 X10*6/uL (4.20-5.50); Red Cell Distribution Width 17.2 % (11.0-16.0)
[2022-11-01 07:27] VITALS: BP 123/74; PULSE 83; RESP 20; TEMP 37.1; O2SAT 97
[2022-11-01 07:27] LABS: Platelet Count 44 X10*3/uL (160-400)
[2022-11-01 07:28] LABS: Glucose, Whole Blood 179 mg/dL (60-115)
[2022-11-01 07:37] LABS: INTERNATIONAL NORM RATIO 2.7 (0.9-1.1); Prothrombin Time 32.3 SEC (11.1-13.3)
[2022-11-01 07:42] LABS: Sodium 141 mmol/L (135-145)
[2022-11-01 08:03] LABS: Alanine Aminotransferase 12 U/L (0-31); Albumin Level 2.5 g/dL (3.5-5.0); Alkaline Phosphatase 55 U/L (39-117); Anion Gap 13 (12-20); Aspartate Amino Transferase 19 U/L (5-31); Bilirubin Direct 0.8 mg/dL (0.0-0.5); Bilirubin Total 1.3 mg/dL (0.0-1.0); Blood Urea Nitrogen 10 mg/dL (9-16); Calcium 8.3 mg/dL (8.4-10.2); Carbon Dioxide 44 mmol/L (22-29); Chloride 87 mmol/L (96-108); Estimated Glomerular Filt Rate > 60; Glucose Random 181 mg/dL (60-115); Potassium 2.9 mmol/L (3.3-5.1); Total Protein 5.7 g/dL (6.5-8.0)
[2022-11-01 09:08] LABS: Magnesium 1.2 mg/dL (1.6-2.6)
[2022-11-01] MEDS: Potassium Chloride ER 20 MEQ TAB.ER.PRT 40 MEQ PO (09:08)
[2022-11-01] MEDS: Insulin Lispro 100 UNIT/ML 3 ML VIAL SUBCUT ×3 (09:08→21:04)
[2022-11-01] MEDS: acetaZOLAMIDE 250 MG TABLET 500 MG PO ×2 (09:09→21:06)
[2022-11-01] MEDS: Multivitamin TABLET 1 TAB PO (09:09)
[2022-11-01] MEDS: rifAXIMin 550 MG TABLET PO ×2 (09:09→21:07)
[2022-11-01] MEDS: carvediloL 3.125 MG TABLET PO ×2 (09:09→21:15)
[2022-11-01] MEDS: Spironolactone 25 MG TABLET 100 MG PO ×2 (09:09→21:07)
[2022-11-01] MEDS: Lactulose 20 GM/30 ML SOLUTION 30 GM PO ×2 (09:10→21:05)
[2022-11-01] MEDS: Furosemide 40 MG/4 ML VIAL 80 MG IVPUSH (09:10)
[2022-11-01] MEDS: methADONE HCl 20 MG/2 ML ORAL.CONC 76 MG PO (09:10)
[2022-11-01] MEDS: ondansetron HCL 4 MG/2 ML VIAL IVPUSH (09:42)
[2022-11-01 12:00] VITALS: BP 116/72; PULSE 88; RESP 20; TEMP 36.8; O2SAT 97
[2022-11-01] MEDS: Albumin Human 25 % 100 ML IV ×2 (12:11→17:12)
[2022-11-01] MEDS: Magnesium Sulfate/H2O 2 GM/50 ML PIGGYBACK IV (12:11)
[2022-11-01 12:23] LABS: Glucose, Whole Blood 135 mg/dL (60-115)
--- NOTE | 2022-11-01 13:07 | PM.CCN ---
Critical Care Event Note Summary Date of Service: 11/01/22 Code activated: No Narrative: Placement of chest tube for fluid drainage is advised against in hepatic hydrothorax, particularly in one that is chronic and likely has underlying trapped lung. Unless in respiratory distress suggest evaluation for TIPS procedure and re-evaluation of hepatic hydrothorax / trapped lung thereafter. Critical Care Time (minutes): 0
[2022-11-01 15:03] VITALS: BP 135/74; PULSE 82; RESP 20; TEMP 36.1; O2SAT 96
[2022-11-01 16:09] LABS: Glucose, Whole Blood 170 mg/dL (60-115)
[2022-11-01] MEDS: iohexoL 350 MG/ML 100 ML INFUS..BTL IV (16:49)
[2022-11-01] MEDS: Heparin Sodium,Porcine Flush 50 UNITS/5 ML SYRINGE IVFLUSH (17:08)
[2022-11-01] MEDS: Magnesium Oxide 400 MG TABLET PO (17:08)
[2022-11-01] MEDS: Furosemide 40 MG/4 ML VIAL IVPUSH (17:09)
[2022-11-01] MEDS: cefTRIAXone sodium 1 GM in 0.9 % Sodium Chloride 50 ML IV (17:09)
--- NOTE | 2022-11-01 18:25 | P.PNIM_ITS ---
Subjective Subjective Date of Service: 11/02/22 Interval History: Complaining of shortness of breath and nausea, on 4 L of oxygen, denies abdominal pain, 2-3 bowel movements per day, denies urinary symptoms, no headache, no dizziness, no acute issues overnight. Review of Systems All other system reviewed and negative Physical Exam 2 Vital Signs: Vital Signs: Last Vital Signs Temp 97.0 F 11/01/22 15:03 Pulse 82 11/01/22 15:03 Resp 20 11/01/22 15:03 BP 135/74 11/01/22 15:03 Pulse Ox 96 11/01/22 15:03 O2 Del Method Nasal Cannula 11/01/22 15:03 O2 Flow Rate 4.5 11/01/22 15:03 Oxygen Flow Rate 3 10/28/22 15:41 BMI result Body Mass Index 31.6 Const: Other: Gen: Awake alert x3, in no acute distress HEENT: sclera anicteric, moist and pale mucus membranes Neck: supple, port R neck without any bleeding Lungs: no air entry on Right, left clear to auscultation Heart: regular rate and rhythm, no murmurs Abd: soft, non-tender, non-distended, bowel sounds audible Ext: no edema Skin: warm/well-perfused Neuro: alert and oriented x3,no asterixis present Psych: appropriate affect Objective Data Active Medications Acetaminophen (Acetaminophen 325 Mg Tablet) 650 mg PO Q6H PRN PRN Reason: Pain, Mild (Pain Scale 1-3) Last Admin: 11/01/22 00:35 Dose: 650 mg Documented By: JYOTI Acetazolamide (Acetazolamide 250 Mg Tablet) 500 mg PO BID [facility] Stop: 11/03/22 21:01 Last Admin: 11/01/22 09:09 Dose: 500 mg Documented By: ARCHANA Acyclovir (Acyclovir 200 Mg Capsule) 400 mg PO BEDTIME [facility] Last Admin: 10/31/22 20:13 Dose: 400 mg Documented By: JYOTI Albuterol Sulfate (Albuterol Sulfate (0.083%) 2.5 Mg/3 Ml Vial.Neb) 2.5 mg INHALE ONCE PRN PRN Reason: Wheezing Albuterol/Ipratropium (Albuterol/Iprat 2.5/0.5mg 3 Ml Ampul.Neb) 3 ml INHALE Q4H PRN PRN Reason: Wheezing Last Admin: 10/29/22 20:24 Dose: 3 ml Documented By: KALPANA Carvedilol (Carvedilol 3.125 Mg Tablet) 3.125 mg PO BID [facility]; Protocol Last Admin: 11/01/22 09:09 Dose: 3.125 mg Documented By: ARCHANA Dextrose (Dextrose 50 % 25 Gm/50 Ml Syringe) 25 gm IVPUSH Q15M PRN; Protocol PRN Reason: per Hypoglycemia Standing Ord. Docusate Sodium (Docusate Sodium 100 Mg Capsule) 100 mg PO DAILY PRN PRN Reason: Constipation Fluticasone Propionate (Fluticasone Propionate Nasal 16 Gm [place]) 1 spray NOSTRIL-B DAILY PRN PRN Reason: Allergy Symptoms Furosemide (Furosemide 40 Mg/4 Ml Vial) 40 mg IVPUSH BID@0900,1800 [facility]; Protocol Last Admin: 11/01/22 17:09 Dose: 40 mg Documented By: ARCHANA Glucose (Glucose Gel 15 Gm Gel..Gram.) 15 gm PO Q15M PRN; Protocol PRN Reason: per Hypoglycemia Standing Ord. Heparin Sodium (Porcine) (Heparin Sodium,Porcine Flush 50 Units/5 Ml Syringe) [facility] Last Admin: 11/01/22 17:08 Dose: 50 units Documented By: ARCHANA Hydromorphone HCl (Hydromorphone Hcl 1 Mg/Ml Syringe) 0.6 mg IVPUSH Q4H PRN; Protocol PRN Reason: severe pain Last Admin: 11/01/22 18:10 Dose: 0.6 mg Documented By: MIRELLA Ceftriaxone Sodium 1 gm/ (Sodium Chloride) 50 mls @ 100 mls/hr IV Q24H [facility] Last Admin: 11/01/22 17:09 Dose: 100 mls/hr Documented By: ARCHANA Albumin Human (Kedbumin 25 %) 100 mls @ 100 mls/hr IV Q6H [facility] Stop: 11/02/22 06:44 Last Admin: 11/01/22 17:12 Dose: 100 mls/hr Documented By: ARCHANA Insulin Human Lispro (Insulin Lispro 100 Unit/Ml 3 Ml Vial) 0 unit SUBCUT QIDACHS [facility]; Protocol Last Admin: 11/01/22 17:07 Dose: 2 unit Documented By: ARCHANA Lactulose (Lactulose 20 Gm/30 Ml Solution) 30 gm PO TID [facility] Last Admin: 11/01/22 16:08 Dose: Not Given Documented By: ARCHANA Non-Admin Reason: going for CT off unit Levothyroxine Sodium (Levothyroxine Sodium 50 Mcg Tablet) 50 mcg PO DAILY@0600 [facility] Last Admin: 11/01/22 05:33 Dose: 50 mcg Documented By: JYOTI Magnesium Oxide (Magnesium Oxide 400 Mg Tablet) 400 mg PO BIDPC [facility] Last Admin: 11/01/22 17:08 Dose: 400 mg Documented By: ARCHANA Methadone HCl (Methadone Hcl 20 Mg/2 Ml Oral.Conc) 76 mg PO DAILY [facility] Last Admin: 11/01/22 09:10 Dose: 76 mg Documented By: ARCHANA Multivitamins/Vitamin C (Multivitamin Tablet) 1 tab PO DAILY [facility] Last Admin: 11/01/22 09:09 Dose: 1 tab Documented By: ARCHANA Omeprazole (Omeprazole 20 Mg Capsule.Dr) 20 mg PO BEDTIME [facility] Last Admin: 10/31/22 20:13 Dose: 20 mg Documented By: JYOTI Ondansetron HCl (Ondansetron Hcl 4 Mg/2 Ml Vial) 4 mg IVPUSH Q8H PRN PRN Reason: Nausea and Vomiting Last Admin: 11/01/22 09:42 Dose: 4 mg Documented By: ARCHANA Rifaximin (Rifaximin 550 Mg Tablet) 550 mg PO BID [facility] Last Admin: 11/01/22 09:09 Dose: 550 mg Documented By: ARCHANA Sodium Chloride (0.9 % Sodium Chloride Flush 3 Ml Syringe) 3 ml IVFLUSH QSHIFT [facility] Last Admin: 11/01/22 16:10 Dose: Not Given Documented By: ARCHANA Non-Admin Reason: No Access Spironolactone (Spironolactone 25 Mg Tablet) 100 mg PO BID [facility] Last Admin: 11/01/22 09:09 Dose: 100 mg Documented By: ARCHANA Labs 11/01/22 07:09 11/02/22 06:30 Labs: Laboratory Results - last 24 hr 0911/01/22 11/01/22 20:30 07:09 07:15 MCV 95.8 MCH 29.1 MCHC 30.3 L RDW 17.2 H Plt Count 44 L MPV 12.2 Absolute Nucleated RBC 0.000 Nucleated RBC % (auto) 0.0 PT 32.3 H INR 2.7 H VBG pH VBG pCO2 VBG pO2 VBG HCO3 VBG O2 Saturation VBG Base Excess Anion Gap 13 Estim Creat Clear Calc 86.0 Estimated GFR > 60 POC Glucose 231 H 179 H Random Glucose 181 H Calcium 8.3 L Magnesium 1.2 L* Total Bilirubin 1.3 H Direct Bilirubin 0.8 H AST 19 ALT 12 Alkaline Phosphatase 55 Total Protein 5.7 L Albumin 2.5 L 11/01/22 11/01/22 11/01/22 07:16 11:40 16:00 MCV MCH MCHC RDW Plt Count MPV Absolute Nucleated RBC Nucleated RBC % (auto) PT INR VBG pH 7.52 H VBG pCO2 71 VBG pO2 107 VBG HCO3 59 H VBG O2 Saturation 99.0 VBG Base Excess 32.2 Anion Gap Estim Creat Clear Calc Estimated GFR POC Glucose 135 H 170 H Random Glucose Calcium Magnesium Total Bilirubin Direct Bilirubin AST ALT Alkaline Phosphatase Total Protein Albumin Microbiology Microbiology Results: Microbiology 10/27/22 13:15 Gram Stain - Final Thoracentesis Fluid Anaerobic Culture - Final NO GROWTH AFTER 5 DAYS Body Fluid Culture - Final No growth after 2 days Assessment and Plan (1) Hepatic encephalopathy: Status: Acute Plan 52yo F with decompensated HCV cirrhosis with hepatic hydrothorax, OUD on methadone, COPD, RA, Crohn's disease, hypothyroidism, DM2,sent in from Short Stay Surgery where she was due to receive port for blood draws and infusions, but found to be profoundly anemic with Hb 5, FOBT+,transfused total 3u pRBCs, underwent thoracentesis + EGD 10/27/22 port placed 10/29/22 now with right lung-whiteout right lung whiteout from recurrent pleural effusion from hepatic hydrothorax -repeat chest x-ray showed complete whiteout of the right hemithorax from 1 large right pleural effusion slightly increased from 10/30/2022 - continue diuretics, on IV Lasix 80mg bid and spironolactone 100 mg b.i.d. , manager lan from [facility] recommended against chest tube, will lower dose of Lasix to 40 b.i.d. due to contraction alkalosis Will give IV albumin 25 g x 4 bags will continue as needed therapeutic thoracocentesis if patient developed dyspnea or worsening hypoxia CTA abdomen and pelvis obtained as per IR request to assess for tips procedure S/p thoracentesis with removal of 1200 mL transudate 10/27/22, fluid appears transudative cultures negative, fluid negative for malignant cells. acute hypoxic respiratory failure due to above -continue Supplemental oxygen Hypo magnesemia will replete and follow labs Hypokalemia due to IV diuretics will replete and follow labs Metabolic alkalosis due to diuretics will add Diamox x6 dosages follow BMP, lowered dose of Lasix stable renal function acute/subacute blood loss anemia due to GI - Transfused 3u PRBCs with IV furosemide, appropriate response in H+H - EGD + C-scope by Dr Garcia 10/27: EGD Findings:? * Esophagus:? Normal mucosa noted in the entire esophagus. The Z-line is at 38 cm. 2 columns of medium sized varices were noted in the lower esophagus without high risk stigmata. * Stomach:?Diffuse congestion and erythema in mosaic pattern consistent with portal hypertensive gastropathy was noted in the whole stomach. Random cold forceps biopsies were taken to r/o H pylori. * Duodenum:? Normal duodenal mucosa to the extent visualised. Cold forceps biopsies were taken from the duodenal bulb and second portion of the duodenum to r/o celiac sprue. Additional intervention: A [employer] multibander was installed on the tip of the scope in the usual fashion and one band was deployed. Complete decompression of both variceal columns was noted thereafter. Colonoscopy Procedure Findings: Mucosa: Visualisation for adequate polyp detection was limited by copious stool. However no active bleeding or large mass was noted. Protruding lesions: * Large internal hemorrhoids with stigmata of recent bleeding. - continue PO PPI, continue IV ceftriaxone for SBP/SBE ppx,s/p octreotide, continue Carvedilol for variceal hemorrhage prophylaxis - GI biopsy showed no helical backed up by Olga Lidia, no intestinal metaplasia or dysplasia duodenal mucosa within normal limits. - Outpt: discuss small bowel evaluation, repeat C-scope in 1yr - Port placement done 10/29/22 for infusions + blood draws as pt has poor venous access, will access port today. 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 Time Spent With Patient Time: Total time managing care of this patient today ____ minutes. Quality Stroke Does the patient have a stroke diagnosis?: No VTE Prior VTE?: No VTE Risk Level:: Medical - moderate - high VTE Device Contraindication: N/A - Device Ordered VTE Drug Contraindication: Treatment Not Indicated
[2022-11-01 19:05] VITALS: BP 111/79; PULSE 80; RESP 20; TEMP 36.3; O2SAT 99
[2022-11-01 19:49] LABS: Glucose, Whole Blood 177 mg/dL (60-115)
[2022-11-01] MEDS: Omeprazole 20 MG CAPSULE.DR PO (21:06)
[2022-11-01] MEDS: Acyclovir 200 MG CAPSULE 400 MG PO (21:06)
[2022-11-01] MEDS: Potassium Chloride ER 20 MEQ TAB.ER.PRT PO (21:07)
[2022-11-01] MEDS: 0.9 % Sodium Chloride Flush 3 ML SYRINGE IVFLUSH (21:07)
[2022-11-02] VITALS (7 sets, daily range): BP systolic 116–141; BP diastolic 57–89; PULSE 81–90; RESP 18; TEMP 36.2–37.1; O2SAT 92–98
[2022-11-02] MEDS: Heparin Sodium,Porcine Flush 50 UNITS/5 ML SYRINGE IVFLUSH ×4 (00:02→23:46)
[2022-11-02] MEDS: HYDROmorphone HCl 1 MG/ML SYRINGE 0.6 MG IVPUSH ×6 (00:02→21:36)
[2022-11-02] MEDS: Albumin Human 25 % 100 ML IV ×5 (00:03→23:29)
[2022-11-02] MEDS: Levothyroxine Sodium 50 MCG TABLET PO (05:19)
[2022-11-02 07:35] LABS: Glucose, Whole Blood 87 mg/dL (60-115)
[2022-11-02 07:50] LABS: Anion Gap 10 (12-20); Blood Urea Nitrogen 10 mg/dL (9-16); Calcium 9.1 mg/dL (8.4-10.2); Carbon Dioxide 46 mmol/L (22-29); Chloride 91 mmol/L (96-108); Creatinine Clr Calc Pharmacy 90.5; Estimated Glomerular Filt Rate > 60; Glucose Random 73 mg/dL (60-115); Magnesium 1.9 mg/dL (1.6-2.6); Potassium 3.3 mmol/L (3.3-5.1); Sodium 144 mmol/L (135-145)
[2022-11-02] MEDS: methADONE HCl 20 MG/2 ML ORAL.CONC 76 MG PO (08:44)
[2022-11-02] MEDS: Furosemide 40 MG/4 ML VIAL IVPUSH (08:47)
[2022-11-02] MEDS: acetaZOLAMIDE 250 MG TABLET 500 MG PO ×2 (08:48→21:36)
[2022-11-02] MEDS: Potassium Chloride ER 20 MEQ TAB.ER.PRT PO ×2 (08:49→16:55)
[2022-11-02] MEDS: rifAXIMin 550 MG TABLET PO ×2 (08:49→21:36)
[2022-11-02] MEDS: carvediloL 3.125 MG TABLET PO ×2 (08:50→21:36)
[2022-11-02] MEDS: Multivitamin TABLET 1 TAB PO (08:50)
[2022-11-02] MEDS: Magnesium Oxide 400 MG TABLET PO ×2 (08:50→16:55)
[2022-11-02] MEDS: Spironolactone 25 MG TABLET 100 MG PO (08:51)
[2022-11-02] MEDS: Lactulose 20 GM/30 ML SOLUTION 30 GM PO ×2 (08:52→16:55)
[2022-11-02] MEDS: 0.9 % Sodium Chloride Flush 3 ML SYRINGE IVFLUSH ×3 (09:04→21:37)
--- NOTE | 2022-11-02 09:33 | P.PNGI_ITS ---
Subjective Subjective Date of Service: 11/02/22 Interval History: s/p EGD and colo on 10/27. Nonbleeding varices, PHG. Hemorrhoids. s/p L IJ port placement 10/29. Main issue now is hypoxic resp failure due to large R sided pleural effusion. Critical Care Time (minutes): 0 Physical Exam 2 Vital Signs: Vital Signs: Last Vital Signs Temp 97.3 F 11/02/22 07:31 Pulse 81 11/02/22 07:31 Resp 18 11/02/22 07:31 BP 124/79 11/02/22 07:31 Pulse Ox 97 11/02/22 07:31 O2 Del Method Nasal Cannula 11/02/22 07:31 O2 Flow Rate 4.5 11/02/22 07:31 Oxygen Flow Rate 3 10/28/22 15:41 BMI result Body Mass Index 31.6 gen appear: more awake abd: soft, nontender neuro: no asterixis Objective Data Labs 11/03/22 09:10 11/03/22 09:00 Labs: Laboratory Results - last 24 hr 11/01/22 11/01/22 11/01/22 11:40 16:00 19:42 Sodium Potassium Chloride Carbon Dioxide Anion Gap BUN Creatinine Estim Creat Clear Calc Estimated GFR POC Glucose 135 H 170 H 177 H Random Glucose Calcium Magnesium 11/02/22 11/02/22 06:30 07:28 Sodium 144 Potassium 3.3 Chloride 91 L Carbon Dioxide 46 H* Anion Gap 10 L BUN 10 Creatinine 0.76 Estim Creat Clear Calc 90.5 Estimated GFR > 60 POC Glucose 87 Random Glucose 73 Calcium 9.1 D Magnesium 1.9 Microbiology Microbiology Results: Microbiology 10/27/22 13:15 Thoracentesis Fluid Gram Stain - Final 10/27/22 13:15 Thoracentesis Fluid Anaerobic Culture - Final NO GROWTH AFTER 5 DAYS 10/27/22 13:15 Thoracentesis Fluid Body Fluid Culture - Final No growth after 2 days Procedures Date of Service Date of Service: 11/02/22 Progress Note: A&P Assessment and plan (1) Hepatic encephalopathy: Status: Resolved (2) Liver cirrhosis: Status: Acute (3) Pleural effusion, right: Status: Acute (4) Hydrothorax: Status: Resolved (5) Acute on chronic anemia: Status: Inactive Plan Worsening pleural effusion. Plan: - Recommend therapeutic thoracentesis - to be supplemented with IV Albumin 25% 8g/l of fluid removed - DECREASE diuretics dose to lasix 60 and spirinolactone 150 once daily - po lactulose TID for goal 2-3 loose BMs (pt noted to get only 1-2 doses per day of lactulose per MAR) - rifaximin 550mg BID - Chest physiotherapy - Add protein shakes - Daily MELD labs Time Spent With Patient Time: Total time managing care of this patient today ____ minutes. Quality Stroke Does the patient have a stroke diagnosis?: No VTE Prior VTE?: No VTE Risk Level:: Medical - moderate - high VTE Device Contraindication: N/A - Device Ordered VTE Drug Contraindication: Treatment Not Indicated
[2022-11-02 11:18] LABS: Glucose, Whole Blood 155 mg/dL (60-115)
[2022-11-02] MEDS: ondansetron HCL 4 MG/2 ML VIAL IVPUSH (12:51)
[2022-11-02] MEDS: Insulin Lispro 100 UNIT/ML 3 ML VIAL SUBCUT ×2 (12:53→17:55)
[2022-11-02] MEDS: Lidocaine HCl 1 % MPF 5 ML VIAL SUBCUT (13:37)
--- NOTE | 2022-11-02 15:06 | P.PNIM_ITS ---
Subjective Subjective Date of Service: 11/02/22 Interval History: Feeling better this morning less shortness of breath, denies nausea, no vomiting, no abdominal pain, tolerating diet, finger oximetry stable at 96% on 4 L of oxygen, no acute events overnight. Review of Systems All other system reviewed and negative. Physical Exam 2 Vital Signs: Vital Signs: Last Vital Signs Temp 97.6 F 11/02/22 11:14 Pulse 81 11/02/22 11:14 Resp 18 11/02/22 11:14 BP 137/88 11/02/22 11:14 Pulse Ox 96 11/02/22 11:14 O2 Del Method Nasal Cannula 11/02/22 11:14 O2 Flow Rate 4.5 11/02/22 11:14 Oxygen Flow Rate 3 10/28/22 15:41 BMI result Body Mass Index 31.6 Const: Other: Gen: Awake alert x3, in no acute distress HEENT: sclera anicteric, moist and pale mucus membranes Neck: supple, port R neck Lungs: no air entry on Right, left clear to auscultation Heart: regular rate and rhythm, no murmurs Abd: soft, non-tender, non-distended, bowel sounds audible Ext: no edema Skin: warm/well-perfused Neuro: alert and oriented x3,no asterixis present Psych: appropriate affect Objective Data Active Medications Acetaminophen (Acetaminophen 325 Mg Tablet) 650 mg PO Q6H PRN PRN Reason: Pain, Mild (Pain Scale 1-3) Last Admin: 11/01/22 00:35 Dose: 650 mg Documented By: JYOTI Acetazolamide (Acetazolamide 250 Mg Tablet) 500 mg PO BID [facility] Stop: 11/03/22 21:01 Last Admin: 11/02/22 08:48 Dose: 500 mg Documented By: DEJAN Acyclovir (Acyclovir 200 Mg Capsule) 400 mg PO BEDTIME [facility] Last Admin: 11/01/22 21:06 Dose: 400 mg Documented By: JYOTI Albuterol Sulfate (Albuterol Sulfate (0.083%) 2.5 Mg/3 Ml Vial.Neb) 2.5 mg INHALE ONCE PRN PRN Reason: Wheezing Albuterol/Ipratropium (Albuterol/Iprat 2.5/0.5mg 3 Ml Ampul.Neb) 3 ml INHALE Q4H PRN PRN Reason: Wheezing Last Admin: 10/29/22 20:24 Dose: 3 ml Documented By: KALPANA Carvedilol (Carvedilol 3.125 Mg Tablet) 3.125 mg PO BID [facility]; Protocol Last Admin: 11/02/22 08:50 Dose: 3.125 mg Documented By: DEJAN Dextrose (Dextrose 50 % 25 Gm/50 Ml Syringe) 25 gm IVPUSH Q15M PRN; Protocol PRN Reason: per Hypoglycemia Standing Ord. Docusate Sodium (Docusate Sodium 100 Mg Capsule) 100 mg PO DAILY PRN PRN Reason: Constipation Fluticasone Propionate (Fluticasone Propionate Nasal 16 Gm [place]) 1 spray NOSTRIL-B DAILY PRN PRN Reason: Allergy Symptoms Furosemide (Furosemide 20 Mg Tablet) 60 mg PO DAILY [facility]; Protocol Glucose (Glucose Gel 15 Gm Gel..Gram.) 15 gm PO Q15M PRN; Protocol PRN Reason: per Hypoglycemia Standing Ord. Heparin Sodium (Porcine) (Heparin Sodium,Porcine Flush 50 Units/5 Ml Syringe) [address] [facility] Last Admin: 11/02/22 08:51 Dose: 50 units Documented By: DEJAN Hydromorphone HCl (Hydromorphone Hcl 1 Mg/Ml Syringe) 0.6 mg IVPUSH Q4H PRN; Protocol PRN Reason: severe pain Last Admin: 11/02/22 12:51 Dose: 0.6 mg Documented By: DEJAN Comments: med given early-pre procedure, thoracentesis Ceftriaxone Sodium 1 gm/ (Sodium Chloride) 50 mls @ 100 mls/hr IV Q24H [facility] Last Infusion: 11/01/22 17:45 Dose: Infused Documented By: ARCHANA Albumin Human (Kedbumin 25 %) 100 mls @ 100 mls/hr IV Q6H [facility] Stop: 11/03/22 05:59 Insulin Human Lispro (Insulin Lispro 100 Unit/Ml 3 Ml Vial) 0 unit SUBCUT QIDACHS [facility]; Protocol Last Admin: 11/02/22 12:53 Dose: 2 unit Documented By: DEJAN Lactulose (Lactulose 20 Gm/30 Ml Solution) 30 gm PO TID [facility] Last Admin: 11/02/22 08:52 Dose: 30 gm Documented By: DEJAN Levothyroxine Sodium (Levothyroxine Sodium 50 Mcg Tablet) 50 mcg PO DAILY@0600 [facility] Last Admin: 11/02/22 05:19 Dose: 50 mcg Documented By: JYOTI Magnesium Oxide (Magnesium Oxide 400 Mg Tablet) 400 mg PO BIDPC [facility] Last Admin: 11/02/22 08:50 Dose: 400 mg Documented By: DEJAN Methadone HCl (Methadone Hcl 20 Mg/2 Ml Oral.Conc) 76 mg PO DAILY [facility] Last Admin: 11/02/22 08:44 Dose: 76 mg Documented By: DEJAN Multivitamins/Vitamin C (Multivitamin Tablet) 1 tab PO DAILY [facility] Last Admin: 11/02/22 08:50 Dose: 1 tab Documented By: DEJAN Omeprazole (Omeprazole 20 Mg Capsule.Dr) 20 mg PO BEDTIME [facility] Last Admin: 11/01/22 21:06 Dose: 20 mg Documented By: JYOTI Ondansetron HCl (Ondansetron Hcl 4 Mg/2 Ml Vial) 4 mg IVPUSH Q8H PRN PRN Reason: Nausea and Vomiting Last Admin: 11/02/22 12:51 Dose: 4 mg Documented By: DEJAN Potassium Chloride (Potassium Chloride Er 20 Meq Tab.Er.Prt) 20 meq PO DAILY [facility] Last Admin: 11/02/22 08:49 Dose: 20 meq Documented By: DEJAN Rifaximin (Rifaximin 550 Mg Tablet) 550 mg PO BID [facility] Last Admin: 11/02/22 08:49 Dose: 550 mg Documented By: DEJAN Sodium Chloride (0.9 % Sodium Chloride Flush 3 Ml Syringe) 3 ml IVFLUSH QSHIFT [facility] Last Admin: 11/02/22 09:04 Dose: 3 ml Documented By: DEJAN Spironolactone (Spironolactone 25 Mg Tablet) 150 mg PO DAILY [facility] Labs 11/01/22 07:09 11/02/22 06:30 Labs: Laboratory Results - last 24 hr 10/29/22 11/01/22 11/01/22 11:25 16:00 19:42 Anion Gap Estim Creat Clear Calc Estimated GFR POC Glucose 170 H 177 H Random Glucose Calcium Magnesium Blood Type A Positive Antibody Screen NEGATIVE 11/02/22 11/02/22 11/02/22 06:30 07:28 11:12 Anion Gap 10 L Estim Creat Clear Calc 90.5 Estimated GFR > 60 POC Glucose 87 155 H Random Glucose 73 Calcium 9.1 D Magnesium 1.9 Blood Type Antibody Screen Assessment and Plan (1) Hepatic encephalopathy: Status: Acute Plan 52yo F with decompensated HCV cirrhosis with hepatic hydrothorax, OUD on methadone, COPD, RA, Crohn's disease, hypothyroidism, DM2,sent in from Short Stay Surgery where she was due to receive port for blood draws and infusions, but found to be profoundly anemic with Hb 5, FOBT+,transfused total 3u pRBCs, underwent thoracentesis + EGD 10/27/22 port placed 10/29/22 now with right lung-whiteout right lung whiteout from recurrent pleural effusion from hepatic hydrothorax -repeat chest x-ray showed complete whiteout of the right hemithorax from large right pleural effusion slightly increased from 10/30/2022, CT abdomen and pelvis showed small amount of ascites, patent portal veins varices and large right pleural effusion On IV Lasix 40 b.i.d. and spironolactone 100 mg b.i.d. noted to have worsening bicarb, will lower dose of Lasix and spironolactone ,continue Diamox Case discussed with Dr. Garcia she recommend to repeat thoracocentesis , 1.4 L of clear fluid removed Repeat albumin 25 g x 4 analog ic design engineer from [facility] recommended against chest tube, if patient maximized on diuretics or unable to tolerate , than recommend tip procedure, , will evaluate patient today for TIPS. acute hypoxic respiratory failure due to above -continue Supplemental oxygen and wean as tolerated Hypo magnesemia repleted and normalized Hypokalemia potassium improved to 3.3, will replete and follow labs Metabolic alkalosis due to diuretics on Diamox x6 dosages follow BMP, lowered dose of Lasix stable renal function acute/subacute blood loss anemia due to GI - Transfused 3u PRBCs with IV furosemide, appropriate response in H+H - EGD + C-scope by Dr Garcia 10/27: EGD Findings:? * Esophagus:? Normal mucosa noted in the entire esophagus. The Z-line is at 38 cm. 2 columns of medium sized varices were noted in the lower esophagus without high risk stigmata. * Stomach:?Diffuse congestion and erythema in mosaic pattern consistent with portal hypertensive gastropathy was noted in the whole stomach. Random cold forceps biopsies were taken to r/o H pylori. * Duodenum:? Normal duodenal mucosa to the extent visualised. Cold forceps biopsies were taken from the duodenal bulb and second portion of the duodenum to r/o celiac sprue. Additional intervention: A [employer] multibander was installed on the tip of the scope in the usual fashion and one band was deployed. Complete decompression of both variceal columns was noted thereafter. Colonoscopy Procedure Findings: Mucosa: Visualisation for adequate polyp detection was limited by copious stool. However no active bleeding or large mass was noted. Protruding lesions: * Large internal hemorrhoids with stigmata of recent bleeding. - continue PO PPI, continue IV ceftriaxone for SBP/SBE ppx,s/p octreotide, continue Carvedilol for variceal hemorrhage prophylaxis - GI biopsy showed no helical backed up by Olga Lidia, no intestinal metaplasia or dysplasia duodenal mucosa within normal limits. - Outpt: discuss small bowel evaluation, repeat C-scope in 1yr - Port placement done 10/29/22 for infusions + blood draws as pt has poor venous access, will access port today. 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 Time Spent With Patient Time: Total time managing care of this patient today ____ minutes. Quality Stroke Does the patient have a stroke diagnosis?: No VTE Prior VTE?: No VTE Risk Level:: Medical - moderate - high VTE Device Contraindication: N/A - Device Ordered VTE Drug Contraindication: Treatment Not Indicated
[2022-11-02] MEDS: cefTRIAXone sodium 1 GM in 0.9 % Sodium Chloride 50 ML IV (16:45)
[2022-11-02 17:54] LABS: Glucose, Whole Blood 162 mg/dL (60-115)
[2022-11-02 21:32] LABS: Glucose, Whole Blood 148 mg/dL (60-115)
[2022-11-02] MEDS: Omeprazole 20 MG CAPSULE.DR PO (21:36)
[2022-11-02] MEDS: Acyclovir 200 MG CAPSULE 400 MG PO (21:36)
[2022-11-03] MEDS: HYDROmorphone HCl 1 MG/ML SYRINGE 0.6 MG IVPUSH ×2 (03:42→07:47)
[2022-11-03] MEDS: ondansetron HCL 4 MG/2 ML VIAL IVPUSH (03:43)
[2022-11-03 03:58] VITALS: BP 137/65; PULSE 85; RESP 18; TEMP 37.1; O2SAT 96
[2022-11-03] MEDS: Levothyroxine Sodium 50 MCG TABLET PO (05:00)
[2022-11-03] MEDS: Albumin Human 25 % 100 ML IV (05:01)
[2022-11-03 07:11] VITALS: BP 133/78; PULSE 80; RESP 18; TEMP 37; O2SAT 96
[2022-11-03] MEDS: Potassium Chloride ER 20 MEQ TAB.ER.PRT PO (07:36)
[2022-11-03] MEDS: rifAXIMin 550 MG TABLET PO ×2 (07:37→21:01)
[2022-11-03] MEDS: Magnesium Oxide 400 MG TABLET PO ×2 (07:37→16:30)
[2022-11-03] MEDS: Spironolactone 25 MG TABLET 150 MG PO (07:37)
[2022-11-03] MEDS: carvediloL 3.125 MG TABLET PO ×2 (07:37→21:01)
[2022-11-03] MEDS: Furosemide 20 MG TABLET 60 MG PO (07:37)
[2022-11-03] MEDS: Multivitamin TABLET 1 TAB PO (07:38)
[2022-11-03] MEDS: methADONE HCl 20 MG/2 ML ORAL.CONC 76 MG PO (07:38)
[2022-11-03] MEDS: acetaZOLAMIDE 250 MG TABLET 500 MG PO ×2 (07:38→21:01)
[2022-11-03] MEDS: Heparin Sodium,Porcine Flush 50 UNITS/5 ML SYRINGE IVFLUSH ×2 (07:39→16:30)
[2022-11-03] MEDS: Lactulose 20 GM/30 ML SOLUTION 30 GM PO ×3 (07:39→21:02)
[2022-11-03] MEDS: 0.9 % Sodium Chloride Flush 3 ML SYRINGE IVFLUSH ×2 (07:39→16:31)
[2022-11-03 07:42] LABS: Glucose, Whole Blood 125 mg/dL (60-115)
[2022-11-03 09:37] LABS: Hematocrit 25.3 % (37.0-47.0); Hemoglobin 7.1 g/dl (12.0-16.0); Mean Corpuscular HGB Conc 28.1 g/dl (31.0-35.0); Mean Corpuscular Volume 99.6 fL (80.0-98.0); Mean Platelet Volume 12.3 fL (9.4-12.3); Red Blood Count 2.54 X10*6/uL (4.20-5.50); Red Cell Distribution Width 17.6 % (11.0-16.0); White Blood Count 3.5 X10*3/uL (4.8-10.8)
[2022-11-03 10:02] LABS: Platelet Count 32 X10*3/uL (160-400)
[2022-11-03 10:13] LABS: Anion Gap 10 (12-20); Blood Urea Nitrogen 8 mg/dL (9-16); Calcium 9.7 mg/dL (8.4-10.2); Carbon Dioxide 40 mmol/L (22-29); Chloride 96 mmol/L (96-108); Estimated Glomerular Filt Rate > 60; Glucose Random 137 mg/dL (60-115); Potassium 4.1 mmol/L (3.3-5.1); Sodium 142 mmol/L (135-145)
[2022-11-03 11:20] VITALS: BP 133/84; PULSE 81; RESP 18; TEMP 37.1; O2SAT 94
[2022-11-03 11:21] LABS: Glucose, Whole Blood 133 mg/dL (60-115)
[2022-11-03 15:39] VITALS: BP 130/68; PULSE 78; RESP 15; TEMP 37.2; O2SAT 89
--- NOTE | 2022-11-03 16:01 | MHC.CM.PN ---
EMR reviewed and per MD rounds, pt is likely to D/C home tomorrow with new VNA. Pt will have comfort plus VNA due to delay in SOC with [facility]. CM will continue to follow.
[2022-11-03 16:06] LABS: Glucose, Whole Blood 167 mg/dL (60-115)
[2022-11-03] MEDS: Acetaminophen 325 MG TABLET 650 MG PO (16:29)
[2022-11-03] MEDS: Insulin Lispro 100 UNIT/ML 3 ML VIAL SUBCUT ×2 (16:30→21:01)
--- NOTE | 2022-11-03 17:33 | HO.PM.IMPN ---
Subjective Subjective Date of Service: 11/03/22 Interval History: Resting comfortably, feeling better less shortness of breath, denies pain, no nausea, no vomiting, tolerating diet ,wishes to be discharged home today, lives alone ambulates independently, no issues overnight Review of Systems All other system reviewed and negative Physical Exam Vital Signs: Vital Signs: Last Vital Signs Temp 98.9 F 11/03/22 15:39 Pulse 78 11/03/22 15:39 Resp 15 11/03/22 15:39 BP 130/68 11/03/22 15:39 Pulse Ox 89 L 11/03/22 15:39 O2 Del Method Nasal Cannula 11/03/22 15:39 O2 Flow Rate 2 11/03/22 15:39 Oxygen Flow Rate 3 10/28/22 15:41 BMI result Body Mass Index 31.6 Const: Other: Gen: Awake alert x3, in no acute distress HEENT: sclera anicteric, moist and pale mucus membranes Neck: supple, port R neck Lungs: left clear to auscultation, right diminished breath sounds at base Heart: regular rate and rhythm, no murmurs Abd: soft, non-tender, non-distended, bowel sounds audible Ext: no edema Skin: warm/well-perfused Neuro: alert and oriented x3,no asterixis present Psych: appropriate affect Objective Data Active Medications Acetaminophen (Acetaminophen 325 Mg Tablet) 650 mg PO Q6H PRN PRN Reason: Pain, Mild (Pain Scale 1-3) Last Admin: 11/03/22 16:29 Dose: 650 mg Documented By: LUCHO Acetazolamide (Acetazolamide 250 Mg Tablet) 500 mg PO BID [facility] Stop: 11/03/22 21:01 Last Admin: 11/03/22 07:38 Dose: 500 mg Documented By: LUCHO Acyclovir (Acyclovir 200 Mg Capsule) 400 mg PO BEDTIME [facility] Last Admin: 11/02/22 21:36 Dose: 400 mg Documented By: HOWIE Albuterol Sulfate (Albuterol Sulfate (0.083%) 2.5 Mg/3 Ml Vial.Neb) 2.5 mg INHALE ONCE PRN PRN Reason: Wheezing Albuterol/Ipratropium (Albuterol/Iprat 2.5/0.5mg 3 Ml Ampul.Neb) 3 ml INHALE Q4H PRN PRN Reason: Wheezing Last Admin: 10/29/22 20:24 Dose: 3 ml Documented By: KALPANA Carvedilol (Carvedilol 3.125 Mg Tablet) 3.125 mg PO BID [facility]; Protocol Last Admin: 11/03/22 07:37 Dose: 3.125 mg Documented By: LUCHO Dextrose (Dextrose 50 % 25 Gm/50 Ml Syringe) 25 gm IVPUSH Q15M PRN; Protocol PRN Reason: per Hypoglycemia Standing Ord. Docusate Sodium (Docusate Sodium 100 Mg Capsule) 100 mg PO DAILY PRN PRN Reason: Constipation Fluticasone Propionate (Fluticasone Propionate Nasal 16 Gm Brea) 1 spray NOSTRIL-B DAILY PRN PRN Reason: Allergy Symptoms Furosemide (Furosemide 20 Mg Tablet) 60 mg PO DAILY [facility]; Protocol Last Admin: 11/03/22 07:37 Dose: 60 mg Documented By: LUCHO Glucose (Glucose Gel 15 Gm Gel..Gram.) 15 gm PO Q15M PRN; Protocol PRN Reason: per Hypoglycemia Standing Ord. Heparin Sodium (Porcine) (Heparin Sodium,Porcine Flush 50 Units/5 Ml Syringe) [facility] Last Admin: 11/03/22 16:30 Dose: 50 units Documented By: LUCHO Insulin Human Lispro (Insulin Lispro 100 Unit/Ml 3 Ml Vial) 0 unit SUBCUT QIDACHS [facility]; Protocol Last Admin: 11/03/22 16:30 Dose: 2 unit Documented By: LUCHO Lactulose (Lactulose 20 Gm/30 Ml Solution) 30 gm PO TID [facility] Last Admin: 11/03/22 16:30 Dose: 30 gm Documented By: LUCHO Levothyroxine Sodium (Levothyroxine Sodium 50 Mcg Tablet) 50 mcg PO DAILY@0600 [facility] Last Admin: 11/03/22 05:00 Dose: 50 mcg Documented By: HOWIE Magnesium Oxide (Magnesium Oxide 400 Mg Tablet) 400 mg PO BIDPC [facility] Last Admin: 11/03/22 16:30 Dose: 400 mg Documented By: LUCHO Methadone HCl (Methadone Hcl 20 Mg/2 Ml Oral.Conc) 76 mg PO DAILY [facility] Last Admin: 11/03/22 07:38 Dose: 76 mg Documented By: LUCHO Multivitamins/Vitamin C (Multivitamin Tablet) 1 tab PO DAILY [facility] Last Admin: 11/03/22 07:38 Dose: 1 tab Documented By: LUCHO Omeprazole (Omeprazole 20 Mg Capsule.Dr) 20 mg PO BEDTIME [facility] Last Admin: 11/02/22 21:36 Dose: 20 mg Documented By: HOWIE Ondansetron HCl (Ondansetron Hcl 4 Mg/2 Ml Vial) 4 mg IVPUSH Q8H PRN PRN Reason: Nausea and Vomiting Last Admin: 11/03/22 03:43 Dose: 4 mg Documented By: HOWIE Potassium Chloride (Potassium Chloride Er 20 Meq Tab.Er.Prt) 20 meq PO DAILY [facility] Last Admin: 11/03/22 07:36 Dose: 20 meq Documented By: LUCHO Rifaximin (Rifaximin 550 Mg Tablet) 550 mg PO BID [facility] Last Admin: 11/03/22 07:37 Dose: 550 mg Documented By: LUCHO Sodium Chloride (0.9 % Sodium Chloride Flush 3 Ml Syringe) 3 ml IVFLUSH QSHIFT [facility] Last Admin: 11/03/22 16:31 Dose: 3 ml Documented By: LUCHO Spironolactone (Spironolactone 25 Mg Tablet) 150 mg PO DAILY [facility] Last Admin: 11/03/22 07:37 Dose: 150 mg Documented By: LUCHO Labs 11/03/22 09:10 11/03/22 09:00 Labs: Laboratory Results - last 24 hr 11/02/22 11/02/22 11/03/22 17:51 21:29 07:29 MCV MCH MCHC RDW Plt Count MPV Absolute Nucleated RBC Nucleated RBC % (auto) Anion Gap Estim Creat Clear Calc Estimated GFR POC Glucose 162 H 148 H 125 H Random Glucose Calcium 11/03/22 11/03/22 11/03/22 09:00 09:10 11:12 MCV 99.6 H MCH 28.0 MCHC 28.1 L RDW 17.6 H Plt Count 32 L D MPV 12.3 Absolute Nucleated RBC 0.000 Nucleated RBC % (auto) 0.0 Anion Gap 10 L Estim Creat Clear Calc 93.0 Estimated GFR > 60 POC Glucose 133 H Random Glucose 137 H Calcium 9.7 D 11/03/22 15:53 MCV MCH MCHC RDW Plt Count MPV Absolute Nucleated RBC Nucleated RBC % (auto) Anion Gap Estim Creat Clear Calc Estimated GFR POC Glucose 167 H Random Glucose Calcium Assessment and Plan (1) Hepatic encephalopathy: Status: Acute Plan 52yo F with decompensated HCV cirrhosis with hepatic hydrothorax, OUD on methadone, COPD, RA, Crohn's disease, hypothyroidism, DM2,sent in from Short Stay Surgery where she was due to receive port for blood draws and infusions, but found to be profoundly anemic with Hb 5, FOBT+,transfused total 3u pRBCs, underwent thoracentesis + EGD 10/27/22 port placed 10/29/22 now with right lung-whiteout right lung whiteout from recurrent pleural effusion from hepatic hydrothorax -repeat chest x-ray showed complete whiteout of the right hemithorax from large right pleural effusion slightly increased from 10/30/2022, CT abdomen and pelvis showed small amount of ascites, patent portal veins varices and large right pleural effusion Is status post IV Lasix and high-dose spironolactone but noted to have contraction alkalosis Now on Lasix 60 mg and spironolactone 150 mg daily Underwent repeat thoracocentesis 11/02, 1.4 L of clear fluid removed , repeat chest x-ray showed significant interval clearing of previously noted large right pleural effusion with small residual s/p iv albumin 25 g x 4 basic sciences professor from [facility] recommended against chest tube, if patient maximized on diuretics or unable to tolerate , than recommend tip procedure, , evaluated patient for tips and will schedule outpatient procedure . DC narcotics, DC TLC, recommend incentive spirometry, ambulation acute hypoxic respiratory failure due to above -continue Supplemental oxygen, obtain home O2 eval Hypo magnesemia repleted and normalized Hypokalemia repleted Metabolic alkalosis due to diuretics on Diamox x6 dosages bicarb trended down to 40 acute/subacute blood loss anemia due to GI - Transfused 3u PRBCs with IV furosemide, appropriate response in H+H - EGD + C-scope by Dr Garcia 10/27: EGD Findings:? Esophagus:? Normal mucosa noted in the entire esophagus. The Z-line is at 38 cm. 2 columns of medium sized varices were noted in the lower esophagus without high risk stigmata. Stomach:?Diffuse congestion and erythema in mosaic pattern consistent with portal hypertensive gastropathy was noted in the whole stomach. Random cold forceps biopsies were taken to r/o H pylori. Duodenum:? Normal duodenal mucosa to the extent visualised. Cold forceps biopsies were taken from the duodenal bulb and second portion of the duodenum to r/o celiac sprue. Additional intervention: A [employer] multibander was installed on the tip of the scope in the usual fashion and one band was deployed. Complete decompression of both variceal columns was noted thereafter. Colonoscopy Procedure Findings: Mucosa: Visualisation for adequate polyp detection was limited by copious stool. However no active bleeding or large mass was noted. Protruding lesions: Large internal hemorrhoids with stigmata of recent bleeding. - continue PO PPI, continue IV ceftriaxone for SBP/SBE ppx,s/p octreotide, continue Carvedilol for variceal hemorrhage prophylaxis - GI biopsy showed no helical backed up by Olga Lidia, no intestinal metaplasia or dysplasia duodenal mucosa within normal limits. - Outpt: discuss small bowel evaluation, repeat C-scope in 1yr - Port placement done 10/29/22 for infusions + blood draws as pt has poor venous access, will access port today. Coagulopathy due to cirrhosis - Given vitamin K + 2u FFP, INR remains elevated 2.7 Hepatic encephalopathy -no confusion continue Lactulose/rifaximin HTN - Continue carvedilol stable blood pressure COPD without acute exac - Continue home inhalers thrombocytopenia - Due to cirrhosis; monitor CBC Crohn's disease - Quiescent hypothyroidism - LT4 DM2 - Correction-dose lispro History of IV drug use on methadone VTE ppx - SCDs given GIB/coagulopathy/thrombocytopenia dispo - home with services In my clinical judgment, the patient requires continued inpatient hospitalization for the following reasons: hypoxia, safe discharge home Time Spent With Patient Time: Total time managing care of this patient today ____ minutes. Quality Stroke Does the patient have a stroke diagnosis?: No VTE Prior VTE?: No VTE Risk Level:: Medical - moderate - high VTE Device Contraindication: N/A - Device Ordered VTE Drug Contraindication: Treatment Not Indicated
[2022-11-03 18:23] VITALS: PULSE 84; PULSE 96; O2SAT 84; O2SAT 90; O2SAT 93
[2022-11-03 19:57] VITALS: BP 128/71; PULSE 72; RESP 16; TEMP 36.2; O2SAT 90
[2022-11-03 20:57] LABS: Glucose, Whole Blood 157 mg/dL (60-115)
[2022-11-03] MEDS: Omeprazole 20 MG CAPSULE.DR PO (21:01)
[2022-11-03] MEDS: Acyclovir 200 MG CAPSULE 400 MG PO (21:01)
[2022-11-03] MEDS: HYDROmorphone HCl 1 MG/ML SYRINGE IVPUSH (21:30)
[2022-11-04] VITALS (9 sets, daily range): BP systolic 121–142; BP diastolic 61–96; PULSE 79–92; RESP 15–20; TEMP 36.3–37.5; O2SAT 93–95
[2022-11-04] MEDS: 0.9 % Sodium Chloride Flush 3 ML SYRINGE IVFLUSH ×3 (01:59→16:09)
[2022-11-04] MEDS: Heparin Sodium,Porcine Flush 50 UNITS/5 ML SYRINGE IVFLUSH ×3 (01:59→16:03)
[2022-11-04] MEDS: Acetaminophen 325 MG TABLET 650 MG PO ×2 (05:55→12:39)
[2022-11-04] MEDS: Levothyroxine Sodium 50 MCG TABLET PO (05:55)
[2022-11-04 07:45] LABS: Glucose, Whole Blood 124 mg/dL (60-115)
[2022-11-04] MEDS: Lactulose 20 GM/30 ML SOLUTION 30 GM PO ×2 (09:34→16:03)
[2022-11-04] MEDS: methADONE HCl 20 MG/2 ML ORAL.CONC 76 MG PO (09:35)
[2022-11-04] MEDS: Magnesium Oxide 400 MG TABLET PO ×2 (09:38→16:03)
[2022-11-04] MEDS: Potassium Chloride ER 20 MEQ TAB.ER.PRT PO (09:38)
[2022-11-04] MEDS: Furosemide 20 MG TABLET 60 MG PO (09:38)
[2022-11-04] MEDS: Multivitamin TABLET 1 TAB PO (09:38)
[2022-11-04] MEDS: Spironolactone 25 MG TABLET 150 MG PO (09:39)
[2022-11-04] MEDS: rifAXIMin 550 MG TABLET PO (09:42)
[2022-11-04] MEDS: carvediloL 3.125 MG TABLET PO (09:42)
[2022-11-04 11:18] LABS: Glucose, Whole Blood 183 mg/dL (60-115)
[2022-11-04] MEDS: Insulin Lispro 100 UNIT/ML 3 ML VIAL SUBCUT (11:56)
[2022-11-04] MEDS: HYDROmorphone HCl 0.5 MG/0.5 ML SYRINGE IVPUSH (12:39)
[2022-11-04] MEDS: diphenhydrAMINE HCL 50 MG/ML VIAL 25 MG IVPUSH (12:40)
--- NOTE | 2022-11-04 15:32 | P.DS_ITS ---
DS: Providers Provider Date of Service: 11/04/22 Date of admission: 10/26/22 14:10 Primary care physician: David Ortiz MD Consults: 10/26/22 12:32 Consult to Gastroenterology Stat Consulting Provider: Romana Garcia Reason for consultation: anemia, +heme stool, cirrhosis 10/26/22 18:18 Consult to Thoracic Surgery Routine Consulting Provider: [facility] Reason for consultation: large pleural effusion, pre-op eval per anesthesia 10/29/22 18:14 Consult to Pulmonology Routine Consulting Provider: [facility] Reason for consultation: right sided hydrothorax with complete opacification Has provider been notified: No DS: Diagnosis Discharge Diagnosis (1) Hepatic encephalopathy: Status: Acute DS: Summary Hospital Course Hospital Course: Date of Service: 10/26/22 Attending physician on admission: Estella Welsh Chief Complaint: anemia 52-year-old female with history of hepatitis C cirrhosis w/ portal hypertension, ascited and splenomegaly, treated in 2014, former IVDA on methadone (clean 18 years), 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 The patient has pancytopenia and follows with Hematology. Unfortunately, the patient is a very difficult labs stick and no labs have been able to be performed in the last 3 months. She was sent to short-stay surgery this morning to have port placement to assist with blood draws and infusions and CBC this morning revealed hemoglobin of 5 with hematocrit 17. She was transferred showed H/H 4.6/16.1 %. The patient denies any active bleeding. Does have known cirrhosis with ascites but denies any variceal bleeding, melena, or bright red blood per rectum. She has felt increasingly fatigued with worsening shortness of breath. No syncope, palpitations, chest pain. In the ED, blood pressure soft but vitals otherwise stable. Additional hematology results revealed pancytopenia with white blood cell count 3.3, RBC 1.78, platelets 93. Renal function normal, electrolyte levels normal except for a slightly elevated CO2 of 32. Total bilirubin baseline at 1.1, direct bilirubin 0.6, AST/ALT normal. Albumin 2.4. Chest x-ray showed persistent large right pleural effusion with likely compressive atelectasis in the right lung but no pneumothorax or other significant change. Right IJ was placed by ED provider with repeat CXR again negative for pneumothorax. ED discussed case with Gastroenterology who will follow the patient with plan for colonoscopy and possible endoscopy tomorrow a.m.. She has been started on octreotide, IV PPI, given 2 L packed red blood cells with 40 mg furosemide. hospital course: 52yo F with decompensated HCV cirrhosis with hepatic hydrothorax, OUD on methadone, COPD, RA, Crohn's disease, hypothyroidism, DM2,sent in from Short Stay Surgery where she was due to receive port for blood draws and infusions, but found to be profoundly anemic with Hb 5, FOBT+,transfused total 3u pRBCs, underwent thoracentesis + EGD 10/27/22, port placed 10/29/22, noted to have right lung whiteout from recurrent pleural effusion from hepatic hydrothorax, CT abdomen and pelvis showed small amount of ascites, patent portal veins, and large right pleural effusion, patient placed on high-dose diuretics but noted to have contraction alkalosis therefore Backed off on dosages , patient is tolerating current dose of diuretics Lasix 60 mg and spironolactone 5 150 mg, Underwent repeat thoracocentesis 11/02, 1.4 L of clear fluid removed , repeat chest x-ray showed significant interval clearing of previously noted large right pleural effusion with small residual effusion, patient treated aggressively with IV albumin 25 g, case discussed with district manager primary care sales from [facility] he recommended against chest tube, he recommended TIPS if patient maximized on diuretics or unable to tolerate diuretics , ,from evaluated patient for tips and he will schedule outpatient procedure , patient oxygen requirement improved she is hemodynamically stable, tolerating incentive spirometry, ambulating without assistive device ,evaluated for home O2 and qualifies for 2 L of home oxygen at rest and with activity therefore being discharged home with [facility]NA services. Hypomagnesemia and Hypokalemia repleted and normalized this score is Metabolic alkalosis due to diuretics treated with Diamox bicarb improved to 40 monitor outpatient electrolytes in 1 week. acute/subacute blood loss anemia due to GI received 4u PRBCs , underwent upper endoscopy and colonoscopy by Dr. Garcia 10/27: EGD Findings:? * Esophagus:? Normal mucosa noted in the entire esophagus. The Z-line is at 38 cm. 2 columns of medium sized varices were noted in the lower esophagus without high risk stigmata. * Stomach:?Diffuse congestion and erythema in mosaic pattern consistent with portal hypertensive gastropathy was noted in the whole stomach. Random cold forceps biopsies were taken to r/o H pylori. * Duodenum:? Normal duodenal mucosa to the extent visualised. Cold forceps biopsies were taken from the duodenal bulb and second portion of the duodenum to r/o celiac sprue. Additional intervention: A [employer] multibander was installed on the tip of the scope in the usual fashion and one band was deployed. Complete decompression of both variceal columns was noted thereafter. Colonoscopy Procedure Findings: Mucosa: Visualisation for adequate polyp detection was limited by copious stool. However no active bleeding or large mass was noted. Protruding lesions: * Large internal hemorrhoids with stigmata of recent bleeding. - continue PO PPI, continue IV ceftriaxone for SBP/SBE ppx,s/p octreotide, continue Carvedilol for variceal hemorrhage prophylaxis GI biopsy showed no helicobacter, no intestinal metaplasia or dysplasia duodenal mucosa within normal limits., recommend repeat C-scope in 1yr Coagulopathy due to cirrhosis received vitamin K and 2 units of FFP , INR remains elevated due to underlying chronic liver disease, no active bleeding is noted Hepatic encephalopathy continue lactulose and rifaximin, no confusion recommend compliance with medications. HTN continue Coreg , and follow blood pressure. COPD noted to have no acute exacerbation continue as needed albuterol inhaler. pancytopenia due to chronic liver disease recommend to follow CBC closely no active bleeding noted, will be followed by Dr. LARSEN as outpatient in 1 week. Crohn's disease no active disease. hypothyroidism continue levothyroxine DM2 stable blood sugars resume metformin home dose. History of IV drug use continue methadone. Time Spent with Patient Time attestation: Total time managing care of this patient today ____ minutes. Discharge coordination time: Greater than 30 minutes Quality: Safe Use of Opioids Does Pt have an Active Cancer Diagnosis on the Problem List?: No Quality: Stroke Does the patient have a stroke diagnosis?: No Physical Exam Vital Signs: Vital Signs: Last Vital Signs Temp 97.4 F 11/04/22 15:25 Pulse 92 11/04/22 15:25 Resp 15 11/04/22 15:25 BP 121/79 11/04/22 15:25 Pulse Ox 95 11/04/22 15:25 O2 Del Method Room Air 11/04/22 15:25 O2 Flow Rate 2 11/04/22 11:34 Oxygen Flow Rate 3 10/28/22 15:41 BMI result Body Mass Index 31.6 Const: Other: Gen: Awake alert x3, in no acute distress HEENT: sclera anicteric, moist and pale mucus membranes Neck: supple, port R neck Lungs: left clear to auscultation, right diminished breath sounds Heart: regular rate and rhythm, no murmurs Abd: soft, non-tender, non-distended, bowel sounds audible Ext: no edema Skin: warm/well-perfused Neuro: alert and oriented x3,no asterixis present Psych: appropriate affect DS: Data Data Completed and Pending Completed studies during hospitalization [Text1]: Pending at discharge 10/27/22 12:00 Surgical [PTH] Routine 10/27/22 13:15 Cytology [PTH] Routine Procedures Drainage of Left Foot Skin, External Approach (05/04/21) Drainage of Right Pleural Cavity with Drainage Device, Open Approach (07/28/22) Insertion of Infusion Device into Superior Vena Cava, Percutaneous Approach (0 05/04/21) Introduction of Vasopressor into Peripheral Vein, Percutaneous Approach (07/28/22) Transfusion of Nonautologous Red Blood Cells into Peripheral Vein, Percutaneous Approach (05/04/21) Ultrasonography of Superior Vena Cava, Guidance (05/04/21) Labs on day of discharge: Laboratory Results - last 24 hr 11/03/22 11/03/22 11/04/22 15:53 20:41 07:13 POC Glucose 167 H 157 H 124 H Blood Type Antibody Screen Crossmatch 11/04/22 11/04/22 11:07 11:30 POC Glucose 183 H Blood Type A Positive Antibody Screen NEGATIVE Crossmatch See Detail Discharge Plan Discharge Anticipated Discharge Date/Time: 11/04/22 15:08 Patient Disposition: Home Health Service Discharge Diagnosis: acute hypoxic respiratory failure hepatic encephalopathy Referrals: [facility] [Outside] - 1 Week David Ortiz MD [Primary Care Provider] - 1 Week Discharge Medications: New Xifaxan 550 mg Tablet 550 mg PO BID Qty: 60 0RF ipratropium-albuterol 0.5 mg-3 mg(2.5 mg base)/3 mL Solution For Nebulization 3 ml inhalation Q4H PRN (Reason: Wheezing) Qty: 1 0RF carvedilol 3.125 mg Tablet 3.125 mg PO BID Qty: 60 0RF Protocol: Hold for SBP/HR < HOLD for SBP < : 90 HOLD for HR < : 60 magnesium oxide 400 mg (241.3 mg magnesium) Tablet 400 mg PO BIDPC Qty: 60 0RF furosemide 20 mg Tablet 60 mg PO DAILY Qty: 90 0RF Protocol: Hold for SBP< HOLD for SBP < : 90 potassium chloride 20 mEq Tablet,Er Particles/Crystals 20 meq PO DAILY Qty: 30 0RF spironolactone [Aldactone] 50 mg tablet 150 mg PO DAILY Qty: 90 0RF lactulose 20 gram/30 mL Solution 30 g PO TID Qty: 2880 0RF Continued metformin 500 mg tablet 500 mg PO BID 90 Days Qty: 180 0RF methadone 10 mg/mL Concentrate 76 mg PO DAILY Rx Instructions: PT REC'D 27 TAKE HOME BOTTLES FROM [employer] ON 10/11/22 multivitamin Tablet 1 tab PO DAILY levothyroxine 50 mcg tablet 50 mcg PO DAILY@0600 fluticasone propionate [Flonase Allergy Relief] 50 mcg/actuation spray,suspension 1 spray intranasal DAILY PRN (Reason: Allergy Symptoms) Rx Instructions: administer into each nostril acyclovir 400 mg tablet 400 mg PO BEDTIME omeprazole 20 mg capsule,delayed release(DR/EC) 20 mg PO BEDTIME 90 Days Qty: 90 1RF Discontinued metoprolol succinate 50 mg tablet extended release 24 hr 50 mg PO DAILY 90 Days Qty: 90 0RF furosemide 40 mg tablet 40 mg PO DAILY amiloride 5 mg tablet 5 mg PO DAILY No Action albuterol sulfate 90 mcg/actuation HFA aerosol inhaler 2 puff inhalation Q4-6H PRN (Reason: shortness of breath or wheezing) Qty: 1 3RF Discharge Orders: Discharge Order (Routine); Ordered 11/04/22 Ordered By: Matt Burdick Diet: Diabetic diet Activity on Discharge: As tolerated Stand Alone Forms: Patient Portal Discharge page Other Ambulatory Orders: Basic Metabolic Panel (Routine) Timeframe: 20221110 Facility: [facility] - Location: Laboratory Ordered By: Matt Burdick Complete Blood Count no Diff (Routine) Timeframe: 20221110 Facility: [facility] - Location: Laboratory Ordered By: Matt Burdick Care Plan Goals: continue compliance with lactulose to have 2-3 bowel movement per day continue oxygen 2 L at rest and with activity Health Concerns: continue all medications as prescribed follow diabetic diet Plan of Treatment: outpatient follow-up with Dr. Garcia from Gastroenterology in 1 week Interventional radiology will arrange for outpatient TIPS procedure Assessment: as above Discharge Date/Time: 11/04/22 18:28
[2022-11-04 15:38] LABS: Glucose, Whole Blood 133 mg/dL (60-115)
--- NOTE | 2022-11-04 15:42 | P.F2F_ITS ---
Service Date Service Date: 11/04/22 Encounter Date of encounter: 11/04/22 Reasons for Services Signs and symptoms assessed: hypoxia now on 2 L of home oxygen , chronic liver disease, generalized weakness due to anemia, electrolyte abnormality. Reason for prison: diabetic teaching, medication management and GI/ assessment Homebound: Leaving the home is medically contraindicated at this time without the asist of a device and/or another person due th the listed conditions above and below. Reason homebound: weakness related to hospital stay Certification: Based on the above findings, I certify that this patient is confined to the home and needs intermittent prison care, physical therapy and/or speech therapy, or continues to need occupational therapy. The patient is under my care, and I have initiated the establishment of the plan of care. The patient will be followed by a physician who will periodically review the plan of care. Time Spent With Patient Time: Total time managing care of this patient today ____ minutes.
--- NOTE | 2022-11-04 15:42 | MHC.CM.PN ---
Patient has been medically cleared for dc to home today, with services. A referral was made to [facility], who has been made aware of today's dc. CM met with Patient at bedside and addressed IMM with her, providing Patient with the original and placing a copy on the chart. Patient's Mother will provide transport to home.
== END 2022-11-04 18:28 | disposition home health service (06) | DRG 432 ==
LOC: HO.ED 12:57 → HO.EDOVER 14:27 → HO.IMC 15:24
PROVIDERS: Family Medicine; Internal Medicine; Physician Assistant; Radiology Diagnostic Radiology; Radiology Vascular & Interventional Radiology; Surgery; Admitting Provider Physician Assistant; Emergency Provider Emergency Medicine; PCP Internal Medicine; Visit Provider Hospitalist
PROC: 0W993ZZ Drainage of Right Pleural Cavity, Percutaneous Approach (ICD-10-PCS; principal; 2022-10-27 12:30)
PROC: 0DB98ZX Excision of Duodenum, Via Natural or Artificial Opening Endoscopic, Diagnostic (ICD-10-PCS; principal; 2022-10-27 14:00)
PROC: 0JH63WZ Insertion of Totally Implantable Vascular Access Device into Chest Subcutaneous Tissue and Fascia, Percutaneous Approach (ICD-10-PCS; principal; 2022-10-29 12:20)
DX: K74.60 Unspecified cirrhosis of liver (principal); J96.01 Acute respiratory failure with hypoxia; D62 Acute posthemorrhagic anemia; F11.20 Opioid dependence, uncomplicated; K76.6 Portal hypertension; D68.4 Acquired coagulation factor deficiency; K50.90 Crohn's disease, unspecified, without complications; I85.10 Secondary esophageal varices without bleeding; R18.8 Other ascites; J91.8 Pleural effusion in other conditions classified elsewhere; E87.3 Alkalosis; D61.818 Other pancytopenia; E03.9 Hypothyroidism, unspecified; K31.89 Other diseases of stomach and duodenum; K76.82 Hepatic encephalopathy; K64.8 Other hemorrhoids; K64.4 Residual hemorrhoidal skin tags; I10 Essential (primary) hypertension; M06.9 Rheumatoid arthritis, unspecified; J44.9 Chronic obstructive pulmonary disease, unspecified; Z86.19 Personal history of other infectious and parasitic diseases; E83.42 Hypomagnesemia; E87.6 Hypokalemia; F17.210 Nicotine dependence, cigarettes, uncomplicated; Z71.6 Tobacco abuse counseling; Z79.84 Long term (current) use of oral hypoglycemic drugs; Z79.890 Hormone replacement therapy; Z79.899 Other long term (current) drug therapy
CPT/HCPCS: 32555; 36415; 71045; 71046; 71250; 74174; 76700; 80048; 80053; 80076; 82042; 82140; 82272; 82803; 82947; 83615; 83735; 84157; 85014; 85018; 85025; 85027; 85384; 85610; 85730; 86850; 86900; 86901; 86923; 87070; 87073; 87205; 87522; 88112; 88305; 89051; 93975; 94640; 99284; C1788; J0131; J0696; J1170; J1200; J1642; J1643; J1940; J2270; J2354; J2405; J3010; J3430; J3475; P9016; P9017; P9047; Q9967

== ENCOUNTER 2022-10-26 14:10 | Outpatient (BNV) | payer OTHER, SELFPAY | END 2022-10-27 13:00 | PROVIDERS: Admitting Provider Physician Assistant; Emergency Provider Emergency Medicine; PCP Internal Medicine; Visit Provider Radiology Diagnostic Radiology | DX: D50.0 Iron deficiency anemia secondary to blood loss (chronic) (principal) | CPT/HCPCS: 32555 ==

== ENCOUNTER 2022-10-26 14:10 | Outpatient (BNV) | payer OTHER, SELFPAY | END 2022-11-02 13:03 | PROVIDERS: Admitting Provider Physician Assistant; Emergency Provider Emergency Medicine; PCP Internal Medicine; Visit Provider Radiology Vascular & Interventional Radiology | DX: J90 Pleural effusion, not elsewhere classified (principal) | CPT/HCPCS: 32555 ==

== ENCOUNTER → 2022-10-26 14:10 | Outpatient (BNV) | payer OTHER, SELFPAY | PROVIDERS: Admitting Provider Physician Assistant; Emergency Provider Emergency Medicine; PCP Internal Medicine; Visit Provider Hospitalist | DX: J90 Pleural effusion, not elsewhere classified (principal); J41.0 Simple chronic bronchitis; J94.8 Other specified pleural conditions | CPT/HCPCS: 99223; 99499 ==

== ENCOUNTER → 2022-10-26 14:10 | Outpatient (BNV) | payer OTHER, SELFPAY | PROVIDERS: Admitting Provider Physician Assistant; Emergency Provider Emergency Medicine; PCP Internal Medicine; Visit Provider Internal Medicine | DX: K76.82 Hepatic encephalopathy (principal); K74.60 Unspecified cirrhosis of liver; J90 Pleural effusion, not elsewhere classified; J94.8 Other specified pleural conditions; D64.9 Anemia, unspecified | CPT/HCPCS: 43239; 43244; 45378; 99223; 99232 ==

== ENCOUNTER → 2022-10-26 14:10 | Outpatient (BNV) | payer OTHER, SELFPAY | PROVIDERS: Admitting Provider Physician Assistant; Emergency Provider Emergency Medicine; PCP Internal Medicine; Visit Provider Physician Assistant | DX: K76.82 Hepatic encephalopathy (principal) | CPT/HCPCS: 99223; 99232; 99233; 99239; 99499; G0180 ==

== ENCOUNTER → 2022-10-26 14:10 | Outpatient (BNV) | payer OTHER, SELFPAY | PROVIDERS: Admitting Provider Physician Assistant; Emergency Provider Emergency Medicine; PCP Internal Medicine; Visit Provider Surgery | DX: J94.8 Other specified pleural conditions (principal); K74.60 Unspecified cirrhosis of liver; D64.9 Anemia, unspecified | CPT/HCPCS: 36561; 76937; 77001; 99223 ==

== ENCOUNTER 2022-11-15 12:22 | Outpatient (AMB) | payer OTHER, SELFPAY ==
--- NOTE | 2022-11-15 12:30 | MHC.OFFVIS ---
Intake Vital Signs 11/15/22 12:40 Height 5 ft 4 in Weight 143 lb 4.807 oz BMI 24.6 BP 102/63 Blood Pressure Location Lt brachial Position Sitting Pulse 90 Intake Visit Reasons: follow up cirrhosis Intake Note: Beata presents in the office as a follow up for cirrhosis. CC: She states that Xifaxin did not come in to her pharmacy. I stated to her that she may need a PA for this medication. Allergies ciprofloxacin [Cipro] Allergy (Unknown, Verified 11/15/22 12:41) swelling of the throat , hives nitrofurantoin [From Macrobid] Adverse Reaction (Verified 11/15/22 12:41) Liver cirrhosis decompensation HPI HPI Comments History of Present Illness Details This is a 51y.o female with past medical history of HCV (s/p SVR 2014) that led to liver cirrhosis, complicated by portal hypertension with ascites, small bowel Crohn's disease dx in 1994 (s/p ileocecectomy 1994, partial small bowel resection 1996, small bowel stricturoplasty 1998) currently not on any meds, who presents to our office for follow up. 05/10/22: Referred by Dr Ortiz for ERNA. Prev pt of Dr Bryant. Main complaints today are fatigue, loss of energy, hair loss. To recap, pt had hx of Hep C contracted through IVDU. Underwent treatment with Sovaldi and Ribavirin x 2014 (Dr Waterman, [facility] [place]) with reported SVR. She is unable to recall when she was diagnosed with cirrhosis but tells me that she had been seeing Dr Bryant for it x many years. Documentation from 2020 reports ascites on imaging and pt was started on aldactone 50 however she does not remember being on any meds. Last imaging: last ultrasound and CT 04/2021: Ascites. Cirrhotic liver. Last endoscopy: Per pt done in 2019 for crohns, and variceal screening and was overall normal. No records available. In terms of her worsening anemia, initially had a drop in counts in April 2021 when she admitted for E coli sepsis and C Diff and at that time attributed to inflammatory anemia. Since then has been seeing [facility] as outpatient. Started on IV infusions but with less than expected response. Then Hb dropped again to 6.8-7 earlier this year. Pt reports no gastrointestinal complaints to include abd pain, N,V, D. No blood in stool or melena. No changes in appetite. Does not report unintentional weight loss. Pt also has hx of Crohns as above however reports endoscopic remission since her bowel surgeries in as above. Has not taken any meds for it. Last flare requiring pred was . Fam hx: mother and mat aunt: Crohns. Grandfather: etOH related cirrhosis. Correspondence: On 05/27/22 @ 09:06 Romana Garcia Wrote To David Ortiz (2) Mandy Could we pls look into why the pt canceled her procedures? These were booked as urgent due to anemia and cirrhosis. Kindly rebook at the earliest, can be with any provider with availability. And pls educate the pt on importance to keep the appt. CC: PCP as an FYI. 08/06/22: Admission to the hospital on 07/28 for nausea, vomiting and shortness of breath, was found to have large right-sided pleural effusion for which she had thoracostomy tube placement. She received pain medication following which she became very lethargic and had an aspiration event. She was subsequently intubated and then transferred to [facility] due to lack of ICU bed at [facility] or nearby hospitals. At age 2 cc, she was managed for aspiration pneumonia as well as pleural effusion. Chest tube was removed 07/30. Pleural effusion suggestive of hepatic hydrothorax. Once she was extubated and was on 3 L O2, she was transferred to regular floor, however she then left AMA on 08/01. Today, scheduled for a video visit. Reports worsening of shortness of breath over the last 2 days, has also noticed decrease in urine output in the same time. No nausea, vomiting, diarrhea. No chest pain or abdominal pain. She does report taking furosemide 40 mg daily. 08/18/22: Presenting for in person follow up after another ER visit 08/09/22. Went in for concern of decreased urine output. Was found to have normal kidney function but worsening R sided pleural effusion. Does not appear pt underwent thoracentesis or adjustment in her diuretics at that time. Today, coming in with her mom. Pt seated in a wheelchair. Describes compliance with furosemide 40 and low salt diet. Postponed her EGD/colo (initially scheduled for 08/12/22) as wasnt sure if she should be drinking golytely prep. Pt and mom have questions re shunt or drain placement for pleural effusion. 09/17/22: Reports feeling much better in terms of her abd distention and shortness of breath since increasing diuretics from last visit. Has been able to return to work due to better energy levels. Does report intolerance with Spironolactone - gets severe abd pain and nausea with [place]. Did discontinue it for a few days but got same symptoms on rechallenge. Has icnreased lasix to 80 therefore, instead of 60, as she is not taking spirinolactone. Reports tried to reach our office for further instructions on CXR but could not get through - no correspondence in chart re her phone call however. 10/26/22-11/04/22: Hospitalised for worsening anemia noted on labs done pre-procedure to port placement. 10/27/22 EGD/colo: 1. Esophageal varices (banding) 2. Portal hypertensive gastropathy 3. Normal duodenum 4. Poor prep 5. No active bleeding 6. Internal and external hemorrhoids Path: A. Duodenum, biopsy: Duodenal mucosa within normal limits; preserved villous architecture and no increased intraepithelial lymphocytes seen. B. Stomach, random, biopsy: Gastric antral and body mucosa within normal limits; negative for Helicobacter pylori, intestinal metaplasia and dysplasia. 11/15/22: Doing much better in terms of breathing. Has better energy levels. Able to cont work although taking frequent breaks for bathroom since she is on diuretics is cumbersome. Although didnt report this when she was hospitalised, pt does tell me today tjat she was frequently skipping diuretics to avoid going to the bathroom frequently and was most likely reason for rapid reaccumulation of volume overload. Currently reports good adherence to all meds as below. Furosemide 80mg/day Spironolactone 150mg/day Lactulose titrated to 2-3 BMs Carvedilol 3.125 BID (metoprolol has been discontinued) EGD and colo results reviewed that was performed in house. Pt is aware that due to poor prep, will need a repeat colo within a year. We also discussed initiating referral to [facility] for transplant evaluation which the pt is agreeable to today. She also has a port and has [facility] services which we can utilise for blood draws and diuretic monitoring. 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 Other Mental health disorder Substance use disorder Social History Household Members: None Housing: Apartment Are you a primary wild animal caretaker to a significant other at home: No Do you presently have visiting nurse or other home services: No Alcohol intake: never Patient Tobacco Use Status: Current everyday Tobacco user Tobacco use type: Cigarette Cigarettes Per Day: 4 Years Smoked: 17 years old e-Cigarette/Vaping Use: Never Used service: No Current occupational status: employed Cognitive needs: No Hearing needs: No Vision needs: No Review of Systems Const All systems reviewed & are unremarkable except as noted in HPI and below Physical Exam Vital Signs: Last Vital Signs Pulse 90 11/15/22 12:40 BP 102/63 11/15/22 12:40 BMI result Body Mass Index 24.6 Gen Appear: NAD, well nourished HEENT: No scleral icterus Chest: CTA, diminished breath sounds at R lower base CVS: Regular S1/S2 no murmurs Abd: soft, nontender, nondistended, no shifting dullness to percussion, bowel sounds active Ext: No peripheral edema bilaterally Neuro: A/Ox3, no asterixis Assessment & Plan Assessment & Plan (1) Ascites: Code(s): R18.8 - Other ascites (2) Pleural effusion: Code(s): J90 - Pleural effusion, not elsewhere classified (3) Hydrothorax: Code(s): J94.8 - Other specified pleural conditions (4) Hepatic encephalopathy: Code(s): K76.82 - Hepatic encephalopathy (5) Liver cirrhosis: Code(s): K74.60 - Unspecified cirrhosis of liver (6) Iron deficiency anemia: Code(s): D50.9 - Iron deficiency anemia, unspecified (7) Crohn's disease: Code(s): K50.90 - Crohn's disease, unspecified, without complications Plan 1. Decomp cirrhosis: - ascites, hepatic hydrothorax and HE (ascites and HE resolved) - MELD-Na 10, Child Haq Class B - Likely secondary to HCV (treated) + VIDES Again reinforced importance of adhering to low salt diet as well as diuretics as prescribed. Can take the diuretics once daily as opposed to BID to help with frequent urination. Plan: - Cont lasix and spironolactone as is. - Check BMP and titrate as needed - Suspect small R pleural effusion based on exam today. CXR ordered. - Sodium restriction to 2g/day. Pt advised to track her daily intake. - US Abd for HCC screening due 01/2023 - Cont Carvedilol 3.125 BID for primary variceal bleeding prophylaxis. Has room to go up on the dose based on vitals, as long as diuretic dose is stable. To be reviewed after BMP. - Cont lactulose for management of HE. Rifaximin not covered by insurance and ok to DC as long as HE is controlled on lactulose. - Chronic liver disease work up also pending from last visit and ordered again - Echocardiogram ordered - [facility] referral requested 2. ERNA: Likely 2/2 oozing from portal hypertensive complications such as varices/PHG. Will need repeat colo as above due to poor prep in colo done inpatient 10/2022. - Recheck CBC and iron indices - [place] to be booked within 6-12 months 3. Crohns disease: Appears to be in clinical and endoscopic remission. Follow up in 4 weeks Orders: Orders Complete Blood Count no Diff 11/15/22 K74.60 - Unspecified cirrhosis of liver Comprehensive Met. Panel 11/15/22 K74.60 - Unspecified cirrhosis of liver IRON PROFILE 11/15/22 K74.60 - Unspecified cirrhosis of liver Hepatitis A IgG 11/15/22 K74.60 - Unspecified cirrhosis of liver Hepatitis B Surface Antibody 11/15/22 K74.60 - Unspecified cirrhosis of liver Hepatitis C Antibody 11/15/22 K74.60 - Unspecified cirrhosis of liver Hepatitis B Viral DNA Qn 11/15/22 K74.60 - Unspecified cirrhosis of liver Liver Kidney Microsomal Ab 11/15/22 K74.60 - Unspecified cirrhosis of liver Smooth Muscle Antibody 11/15/22 K74.60 - Unspecified cirrhosis of liver CATERINA Reflex Titer and Pattern 11/15/22 K74.60 - Unspecified cirrhosis of liver HCV RNA QN PROG TO GENOTYPE 11/15/22 K74.60 - Unspecified cirrhosis of liver Immunoglobulin G 11/15/22 K74.60 - Unspecified cirrhosis of liver Alpha 1 Anti-trypsin 11/15/22 K74.60 - Unspecified cirrhosis of liver XR chest 2V 11/15/22 J90 - Pleural effusion, not elsewhere classified Basic Metabolic Panel 11/18/22 R18.8 - Other ascites Ferritin 11/15/22 K74.60 - Unspecified cirrhosis of liver HIV Ab/Ag 11/15/22 K74.60 - Unspecified cirrhosis of liver Hepatitis B Surface Antigen 11/15/22 K74.60 - Unspecified cirrhosis of liver Mitochondrial Antibody 11/15/22 K74.60 - Unspecified cirrhosis of liver Ceruloplasmin 11/15/22 K74.60 - Unspecified cirrhosis of liver CA echo transesophageal 11/15/22 K74.60 - Unspecified cirrhosis of liver Referrals Gastroenterology Referral K74.60 - Unspecified cirrhosis of liver Medications: New ondansetron 4 mg PO Q8H PRN 10 tabs 0RF nausea and vomiting Coding Level of Care Code Est Pt Level 5 (93508) Diagnoses Ascites R18.8 Pleural effusion J90 Hydrothorax J94.8 Hepatic encephalopathy K76.82 Liver cirrhosis K74.60 Iron deficiency anemia D50.9 Crohn's disease K50.90
[2022-11-15 12:40] VITALS: BP 102/63; PULSE 90; BMI 24.6
== END 2022-11-15 13:25 | disposition home or self-care (01) ==
PROVIDERS: PCP Internal Medicine; Visit Provider Internal Medicine
DX: K74.60 Unspecified cirrhosis of liver (principal); R18.8 Other ascites; K76.82 Hepatic encephalopathy; D50.9 Iron deficiency anemia, unspecified; K50.90 Crohn's disease, unspecified, without complications
CPT/HCPCS: 99214

== ENCOUNTER 2022-11-15 12:22 | Outpatient (REF) | payer OTHER, SELFPAY ==
--- NOTE | ~2022-11-15 | XR_ITS ---
EXAMINATION: XR CHEST CLINICAL INFORMATION: Pleural effusion COMPARISON: Previous chest x-ray October 2022 TECHNIQUE: 2 views of the chest were obtained. FINDINGS: The cardiac and mediastinal contours are stable. There is a moderate to large right pleural effusion. There is focal scarring or chronic subsegmental atelectasis in the right upper lobe. There may be compressive atelectasis of the right lower lobe from the effusion. The left lung is clear. No left pleural effusion. No pneumothorax. Left jugular port with tip projecting over the cavoatrial junction. Bony structures are unremarkable. XR/XR chest 2V IMPRESSION: Moderate to large right pleural effusion. No pneumothorax. Chronic scarring or subsegmental atelectasis in the right upper lobe.
[2022-11-15 15:38] LABS: Hematocrit 31.8 % (37.0-47.0); PLT CLUMP 1
[2022-11-15 15:39] LABS: Hemoglobin 9.8 g/dl (12.0-16.0); Mean Corpuscular HGB Conc 30.8 g/dl (31.0-35.0); Mean Corpuscular Hemoglobin 28.7 pg (27.0-33.0); Mean Corpuscular Volume 93.3 fL (80.0-98.0); Mean Platelet Volume 11.7 fL (9.4-12.3); Red Blood Count 3.41 X10*6/uL (4.20-5.50); Red Cell Distribution Width 18.9 % (11.0-16.0)
[2022-11-15 15:48] LABS: Platelet Count 112 X10*3/uL (160-400); White Blood Count 4.6 X10*3/uL (4.8-10.8)
[2022-11-15 16:08] LABS: Alanine Aminotransferase 18 U/L (0-31); Albumin Level 3.8 g/dL (3.5-5.0); Alkaline Phosphatase 100 U/L (39-117); Anion Gap 16 (12-20); Aspartate Amino Transferase 28 U/L (5-31); Bilirubin Total 1.5 mg/dL (0.0-1.0); Blood Urea Nitrogen 24 mg/dL (9-16); Calcium 9.9 mg/dL (8.4-10.2); Carbon Dioxide 30 mmol/L (22-29); Chloride 96 mmol/L (96-108); Estimated Glomerular Filt Rate 40; Glucose Random 143 mg/dL (60-115); Iron 44 mcg/dL (30-160); Percent Iron Saturation 15 % (15-50); Potassium 3.8 mmol/L (3.3-5.1); Sodium 138 mmol/L (135-145); Total Iron Binding Capacity 296 mcg/dL (228-428); Total Protein 7.4 g/dL (6.5-8.0); Unsaturated Iron Binding 252 ug/dL
[2022-11-15 16:27] LABS: Ferritin 42 ng/mL (10-250)
[2022-11-16 08:14] LABS: HBsAGNum1 0.32 S/CO (0.00-0.99); HIV AB/AG Nonreactive (Nonreactive); HIV Num 1 0.06 S/CO (0.00-0.99); Hepatitis A Antibody IgG REACTIVE (Nonreactive); Hepatitis B Surface Antigen Negative (Negative); ~HepC Num1 10.84 S/CO (0.00-0.79); ~Hepatitis A Antibody IgG 2.46 S/CO (0.00-0.99); ~Hepatitis B Surface Antibody REACTIVE (Nonreactive); ~Hepatitis C Antibody Reactive (Nonreactive)
[2022-11-17 09:09] LABS: Hepatitis B Viral DNA Qn - cp NOT DETECTED Log IU/mL (NOT DETECTED); Hepatitis B Viral DNA Qn-IU/mL NOT DETECTED (NOT DETECTED)
[2022-11-17 15:18] LABS: HCV RNA PCR Qn <1.18 NOT DETECTED Log IU/mL (NOT DETECTED); HCV RNA PCR Qn <15 NOT DETECTED IU/mL (NOT DETECTED)
[2022-11-17 16:54] LABS: Immunoglobulin G 1595 mg/dL (600-1640)
[2022-11-19 09:29] LABS: Alpha 1 Anti-trypsin 190 mg/dL (83-199); Ceruloplasmin 28 mg/dL (18-53)
[2022-11-19 12:09] LABS: ANA Titer 2 1:40 titer; Anti Nuclear Antibody Screen POSITIVE (NEGATIVE)
[2022-11-19 14:49] LABS: Mitochondrial Antibodies NEGATIVE (NEGATIVE)
[2022-11-19 23:00] LABS: Liver Kidney Microsomal Ab <=20.0 U (<=20.0)
[2022-11-20 22:54] LABS: Smooth Muscle Antibody <20 U (<20)
== END 2022-11-15 12:23 | disposition home or self-care (01) ==
LOC: HO.XRAY 12:22
PROVIDERS: PCP Internal Medicine; Visit Provider Internal Medicine
DX: Z11.4 Encounter for screening for human immunodeficiency virus [HIV] (principal); J90 Pleural effusion, not elsewhere classified; K74.60 Unspecified cirrhosis of liver
CPT/HCPCS: 36415; 71046; 80053; 82103; 82390; 82728; 82784; 83540; 85027; 86015; 86038; 86039; 86376; 86381; 86706; 86708; 86803; 87340; 87389; 87517; 87522; 99212

== ENCOUNTER 2022-11-17 13:29 | Outpatient (AMB) | payer OTHER, SELFPAY ==
[2022-11-17 13:35] VITALS: BP 98/46; PULSE 88; O2SAT 95; BMI 25.5
--- NOTE | 2022-11-17 13:35 | A.OFFPC_ITS ---
Vital Signs 3 11/17/22 13:35 Height 5 ft 4 in Weight 148 lb 8 oz BMI 25.5 BP 98/46 L Blood Pressure Location Rt brachial Position Sitting Pulse 88 Pulse Source Pulse Oximeter Pulse Oximetry (%) 95 Oxygen Delivery Method Room Air Intake Visit Reasons: HDF ~ Post hospital discharge FU Allergies ciprofloxacin [Cipro] Allergy (Unknown, Verified 11/17/22 13:36) swelling of the throat , hives nitrofurantoin [From Macrobid] Adverse Reaction (Verified 11/17/22 13:36) Liver cirrhosis decompensation Medication List - Last Reconciled 11/17/22 by David Ortiz MD acyclovir 400 mg PO BEDTIME albuterol sulfate 90 mcg/actuation 2 puffs inhalation Q4-6H PRN carvedilol 3.125 mg See Protocol PO BID fluticasone propionate 50 mcg/actuation (Flonase Allergy Relief) 1 spray intranasal DAILY PRN furosemide 60 mg See Protocol PO DAILY ipratropium-albuterol 0.5 mg-3 mg(2.5 mg base)/3 mL 3 mL inhalation Q4H PRN lactulose 30 grams (45 mL) PO TID lactulose mL PO levothyroxine 50 mcg PO DAILY@0600 magnesium oxide 400 mg PO BIDPC metformin 500 mg PO BID 90 days methadone 76 mg PO DAILY multivitamin 1 tab PO DAILY omeprazole 20 mg PO BEDTIME 90 days ondansetron 4 mg PO Q8H PRN potassium chloride ER 20 mEq PO DAILY spironolactone (Aldactone) 150 mg (3 x 50 mg) PO DAILY Tobacco use date assessed: 11/17/22 Dental Screening Dental Screen Date: 11/17/22 Did you have a dental visit in the last 12 months?: Yes Did you have a dental problem in the last 6 months where you did not have access to dental care?: No Was dental information given to patient?: Patient has dentist HPI HDF ~ Post hospital discharge FU 2 HPI0 Details Patient is a 51-year-old female with past medical history of hepatitis C infection in 2014 followed by liver cirrhosis and portal hypertension and ascites. Small bowel Crohn's disease diagnosed in 1994 status post ileocecal ectomy 1994, partial small-bowel resection 1996, small bowel stricturoplasty 1998 Has been having repeated hospital admissions due to his side is getting worse Recent hospital admission dated 10/26/2022 till 11/04/2022 Patient hospitalized for worsening anemia and shortness of breath. EGD showed esophageal viruses banding worse done Portal hypertension No active bleeding was seen on colonoscopy Has internal and external hemorrhoids Patient was given 4 units of packed RBCs Her last hemoglobin is in 9 range checked 2 days ago Patient was on high dose of frusemide 80 mg per day and spironolactone 150 mg which is on hold because of nephropathy She is taking lactulose and carvedilol 3.1 b.i.d. 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 Other Mental health disorder Substance use disorder Social History Household Members: None Housing: Apartment Are you a primary career resource specialist to a significant other at home: No Do you presently have visiting nurse or other home services: No Alcohol intake: never Patient Tobacco Use Status: Current everyday Tobacco user Tobacco use type: Cigarette Cigarettes Per Day: 4 Years Smoked: 17 years old e-Cigarette/Vaping Use: Never Used service: No Current occupational status: employed Cognitive needs: No Hearing needs: No Vision needs: No Questionnaire PHQ-9 Over the last 2 weeks, how often have you been bothered by any of the following problems? 1. Little interest or pleasure in doing things: not at all 2. Feeling down, depressed, or hopeless: not at all 3. Trouble falling or staying asleep, or sleeping too much: not at all 4. Feeling tired or having little energy: not at all 5. Poor appetite or overeating: not at all 6. Feeling bad about yourself - or that you are a failure or have let yourself or your family down: not at all 7. Trouble concentrating on things, such as reading the newspaper or watching television: not at all 8. Moving or speaking so slowly that other people could have noticed. Or the opposite - being so fidgety or restless that you have been moving around a lot more than usual: not at all 9. Thoughts that you would be better off or of hurting yourself in some way: not at all Total score: 0 Depression Screening Interpretation: Negative Depression Screening Done: Yes 54455 - PHQ-9 Billing: Yes Source: Developed by Drs. Valeriano Bhakta, Julian Benjamin and colleagues, with an educational maria from [employer]. Thrive Questionnaire Date Thrive assessed: 10/27/22 AUDIT C Alcohol Use Questionnaire (AUDIT-C) 1. How often do you have a drink containing alcohol?: Never 3. How often do you have six or more drinks on one occasion?: Never Total Score: 0 Score Reviewed/Action Taken: Yes NAV-7 AMB Questionnaire NAV-7 Date NAV - 7 assessed: 09/24/22 Source: Developed by Drs. Valeriano Bhakta, Julian Benjamin and colleagues, with an educational maria from [employer]. Review of Systems Const Denies chills and Denies fever(s) ENT Denies epistaxis and Denies nasal discharge Card Denies chest pain Resp Denies chest congestion, Denies cough and Denies hemoptysis GI Denies diarrhea and Denies nausea Skin/Breast Denies rash Neuro Reports no additional complaints Psych Reports no additional complaints Endo Reports no additional complaints Physical exam (Primary Care) Vital Signs: Last Vital Signs Pulse 88 11/17/22 13:35 BP 98/46 L 11/17/22 13:35 Pulse Ox 95 11/17/22 13:35 Oxygen Delivery Method Room Air 11/17/22 13:35 BMI result Body Mass Index 25.5 Tobacco/Smoking Status: Tobacco use Status Tobacco use date assessed 11/17/22 11/17/22 13:37 Patient Tobacco Use Status Current everyday Tobacco 11/17/22 13:37 Tobacco use type Cigarette 11/17/22 13:37 e-Cigarette/Vaping Use Never Used 11/17/22 13:37 PHQ-9: PHQ-9 Score PHQ-9: Total score 0 11/17/22 14:02 Depression Screening Interpretation: Negative Thrive Assessment: Date of Thrive Assessment Date Thrive assessed 10/27/22 11/17/22 13:37 Const General: cooperative, comfortable and no acute distress Orientation/consciousness: patient oriented x3 HENMT Head: Yes normocephalic Eyes General: appearance normal, both eyes and all related structures Neck Neck: Yes supple Neck images: 2 1. Port present, healed well Resp Effort & Inspection: normal respiratory effort, no cough and no stridor Cardio Rhythm: regular rhythm Heart sounds: S1 normal heart sound present and S2 normal heart sound present Skin General skin exam: turgor normal Neuro General: patient oriented x3, tone normal and moves all extremities Assessment and Plan Assessment & Plan (1) Hospital discharge follow-up: Code(s): Z09 - Encounter for follow-up examination after completed treatment for conditions other than malignant neoplasm (2) Crohn's disease: Code(s): K50.90 - Crohn's disease, unspecified, without complications Qualifiers: Gastrointestinal tract location: large intestine Digestive disease complication type: without complication Qualified Code(s): K50.10 - Crohn's disease of large intestine without complications (3) Pleural effusion, right: Code(s): J90 - Pleural effusion, not elsewhere classified (4) Diabetes 1.5, managed as type 2: Code(s): E13.9 - Other specified diabetes mellitus without complications (5) Nephropathy: Code(s): N28.9 - Disorder of kidney and ureter, unspecified (6) Iron deficiency anemia: Code(s): D50.9 - Iron deficiency anemia, unspecified Qualifiers: Iron deficiency anemia type: chronic blood loss Qualified Code(s): D 50.0 - Iron deficiency anemia secondary to blood loss (chronic) (7) Liver cirrhosis: Code(s): K74.60 - Unspecified cirrhosis of liver Qualifiers: Hepatic cirrhosis type: secondary biliary cirrhosis Qualified Code(s): K74.4 - Secondary biliary cirrhosis (8) Ascites of liver: Code(s): R18.8 - Other ascites (9) Hypothyroidism: Code(s): E03.9 - Hypothyroidism, unspecified Qualifiers: Hypothyroidism type: unspecified Qualified Code(s): E03.9 - Hypothyroidism, unspecified (10) Elevated BUN: Code(s): R79.9 - Abnormal finding of blood chemistry, unspecified Plan Patient is a 51-year-old female with past medical history of hepatitis C infection in 2014 followed by liver cirrhosis and portal hypertension and ascites. Small bowel Crohn's disease diagnosed in 1994 status post ileocecal ectomy 1994, partial small-bowel resection 1996, small bowel stricturoplasty 1998 Has been having repeated hospital admissions due to his side is getting worse Recent hospital admission dated 10/26/2022 till 11/04/2022 Patient hospitalized for worsening anemia and shortness of breath. EGD showed esophageal viruses banding worse done Portal hypertension No active bleeding was seen on colonoscopy Has internal and external hemorrhoids Patient was given 4 units of packed RBCs Her last hemoglobin is in 9 range checked 2 days ago Patient was on high dose of frusemide 80 mg per day and spironolactone 150 mg which is on hold because of nephropathy She is taking lactulose and carvedilol 3.1 b.i.d. 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 Medications: New 2 levothyroxine 50 mcg PO DAILY@0600 90 tabs 1RF Discontinued 2 metformin Discontinued Reason: Doctor's Order 500 mg PO BID 90 days 180 tabs 0RF Coding Level of Care Code Est Pt Level 5 (30486) Diagnoses Hospital discharge follow-up Z09 Crohn's disease of large intestine without complication K50.10 Gastrointestinal tract location: large intestine Digestive disease complication type: without complication Pleural effusion, right J90 Diabetes 1.5, managed as type 2 E13.9 Nephropathy N28.9 Iron deficiency anemia due to chronic blood loss D50.0 Iron deficiency anemia type: chronic blood loss 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
== END 2022-11-17 14:04 | disposition home or self-care (01) ==
PROVIDERS: PCP Internal Medicine; Visit Provider Internal Medicine
DX: K74.4 Secondary biliary cirrhosis (principal); K50.10 Crohn's disease of large intestine without complications; E13.9 Other specified diabetes mellitus without complications; Z09 Encounter for follow-up examination after completed treatment for conditions other than malignant neoplasm; J90 Pleural effusion, not elsewhere classified; N28.9 Disorder of kidney and ureter, unspecified; D50.0 Iron deficiency anemia secondary to blood loss (chronic); R18.8 Other ascites; E03.9 Hypothyroidism, unspecified; R79.9 Abnormal finding of blood chemistry, unspecified
CPT/HCPCS: 99215

== ENCOUNTER 2022-12-13 08:37 | Outpatient (REF) | payer OTHER, SELFPAY ==
[2022-12-13 09:21] LABS: Appearance Urine Clear; Color Urine Yellow; Glucose Urine UA Negative (Negative); Leukocyte Esterase Urine Negative (Negative); Nitrite Urine Negative (Negative); Urine Blood Negative (Negative); Urine Ketones Negative (Negative); Urine Protein Negative (Neg-Trace)
[2022-12-13 09:30] LABS: INTERNATIONAL NORM RATIO 2.3 (0.9-1.1); Prothrombin Time 28.2 SEC (11.1-13.3)
[2022-12-13 10:06] LABS: Alanine Aminotransferase 10 U/L (0-31); Albumin Level 3.4 g/dL (3.5-5.0); Alkaline Phosphatase 63 U/L (39-117); Anion Gap 18 (12-20); Aspartate Amino Transferase 20 U/L (5-31); Bilirubin Total 1.4 mg/dL (0.0-1.0); Blood Urea Nitrogen 23 mg/dL (9-16); C Reactive Protein 2.43 mg/dL (< or = 0.50); Calcium 9.6 mg/dL (8.4-10.2); Carbon Dioxide 27 mmol/L (22-29); Chloride 98 mmol/L (96-108); Estimated Glomerular Filt Rate 40; Glucose Random 80 mg/dL (60-115); Iron 33 mcg/dL (30-160); Percent Iron Saturation 10 % (15-50); Potassium 3.8 mmol/L (3.3-5.1); Sodium 139 mmol/L (135-145); Total Iron Binding Capacity 322 mcg/dL (228-428); Unsaturated Iron Binding 289 ug/dL
[2022-12-13 10:23] LABS: Ferritin 34 ng/mL (10-250); Vitamin D 25-OH Total 40.3 ng/mL (>30)
[2022-12-13 10:36] LABS: Vitamin B12 1270 pg/mL (200-900)
[2022-12-13 11:58] LABS: Hematocrit 26.6 % (37.0-47.0); Hemoglobin 8.4 g/dl (12.0-16.0); Mean Corpuscular HGB Conc 31.6 g/dl (31.0-35.0); Mean Corpuscular Hemoglobin 28.9 pg (27.0-33.0); Mean Corpuscular Volume 91.4 fL (80.0-98.0); Mean Platelet Volume 11.6 fL (9.4-12.3); Red Blood Count 2.91 X10*6/uL (4.20-5.50); Red Cell Distribution Width 18.1 % (11.0-16.0); White Blood Count 3.5 X10*3/uL (4.8-10.8)
[2022-12-13 11:59] LABS: HBS Num1 54.19 mIU/mL (0-7.99); HBsAGNum1 0.35 S/CO (0.00-0.99); HIV AB/AG Nonreactive (Nonreactive); HIV Num 1 0.04 S/CO (0.00-0.99); Hepatitis A Antibody IgG REACTIVE (Nonreactive); Hepatitis B Core Antibody Nonreactive (Nonreactive); Hepatitis B Surface Antigen Negative (Negative); ~HepC Num1 11.52 S/CO (0.00-0.79); ~Hepatitis A Antibody IgG 1.54 S/CO (0.00-0.99); ~Hepatitis B Surface Antibody REACTIVE (Nonreactive); ~Hepatitis C Antibody Reactive (Nonreactive)
[2022-12-13 12:03] LABS: Platelet Count 78 X10*3/uL (160-400)
[2022-12-14 16:04] LABS: Hepatitis B Viral DNA Qn - cp NOT DETECTED Log IU/mL (NOT DETECTED); Hepatitis B Viral DNA Qn-IU/mL NOT DETECTED (NOT DETECTED)
[2022-12-15 13:34] LABS: TS Negative Control Passed; TS Panel A 0; TS Panel B 0; TS Positive Control Passed; TSpotTB Negative (Negative)
[2022-12-15 14:58] LABS: Ceruloplasmin 27 mg/dL (18-53)
[2022-12-16 16:33] LABS: HCV Log PCR <1.18 NOT DETECTED Log IU/mL (NOT DETECTED); HepC Viral Load <15 NOT DETECTED IU/mL (NOT DETECTED)
[2022-12-24 18:02] LABS: TPMT Activity 23
== END 2022-12-13 08:38 | disposition home or self-care (01) ==
LOC: HO.LAB 08:37
PROVIDERS: PCP Internal Medicine; Visit Provider Internal Medicine
DX: K76.6 Portal hypertension (principal); R18.8 Other ascites; J90 Pleural effusion, not elsewhere classified; J94.8 Other specified pleural conditions; K76.82 Hepatic encephalopathy; K74.4 Secondary biliary cirrhosis; D50.0 Iron deficiency anemia secondary to blood loss (chronic); K50.10 Crohn's disease of large intestine without complications; M62.84 Sarcopenia
CPT/HCPCS: 36415; 80053; 81003; 82306; 82390; 82607; 82728; 82746; 83540; 84433; 85027; 85610; 86140; 86481; 86704; 86706; 86708; 86803; 87340; 87389; 87517; 87522; 99212

== ENCOUNTER 2022-12-13 10:28 | Outpatient (AMB) | payer OTHER, SELFPAY ==
--- NOTE | 2022-12-13 10:30 | MHC.OFFVIS ---
Intake Vital Signs 12/13/22 10:31 Height 5 ft 4 in Weight 141 lb 1.533 oz BMI 24.2 BP 117/63 Blood Pressure Location Lt brachial Position Sitting Pulse 81 Intake Visit Reasons: 4W follow up Intake Note: Beata presents in the office as a 4 week follow up. CC: She states that she is not having any GI concerns at this time. Allergies ciprofloxacin [Cipro] Allergy (Unknown, Verified 12/13/22 10:32) swelling of the throat , hives nitrofurantoin [From Macrobid] Adverse Reaction (Verified 12/13/22 10:32) Liver cirrhosis decompensation HPI HPI Comments History of Present Illness Details This is a 51y.o female with past medical history of HCV (s/p SVR 2014) that led to liver cirrhosis, complicated by portal hypertension with ascites, small bowel Crohn's disease dx in 1994 (s/p ileocecectomy 1994, partial small bowel resection 1996, small bowel stricturoplasty 1998) currently not on any meds, who presents to our office for follow up. 05/10/22: Referred by Dr Ortiz for ERNA. Prev pt of Dr Bryant. Main complaints today are fatigue, loss of energy, hair loss. To recap, pt had hx of Hep C contracted through IVDU. Underwent treatment with Sovaldi and Ribavirin x 2014 (Dr Waterman, [facility] [place]) with reported SVR. She is unable to recall when she was diagnosed with cirrhosis but tells me that she had been seeing Dr Bryant for it x many years. Documentation from 2020 reports ascites on imaging and pt was started on aldactone 50 however she does not remember being on any meds. Last imaging: last ultrasound and CT 04/2021: Ascites. Cirrhotic liver. Last endoscopy: Per pt done in 2019 for crohns, and variceal screening and was overall normal. No records available. In terms of her worsening anemia, initially had a drop in counts in April 2021 when she admitted for E coli sepsis and C Diff and at that time attributed to inflammatory anemia. Since then has been seeing [facility] as outpatient. Started on IV infusions but with less than expected response. Then Hb dropped again to 6.8-7 earlier this year. Pt reports no gastrointestinal complaints to include abd pain, N,V, D. No blood in stool or melena. No changes in appetite. Does not report unintentional weight loss. Pt also has hx of Crohns as above however reports endoscopic remission since her bowel surgeries in as above. Has not taken any meds for it. Last flare requiring pred was . Fam hx: mother and mat aunt: Crohns. Grandfather: etOH related cirrhosis. Correspondence: On 05/27/22 @ 09:06 Romana Garcia Wrote To David Ortiz (2) Mandy Could we pls look into why the pt canceled her procedures? These were booked as urgent due to anemia and cirrhosis. Kindly rebook at the earliest, can be with any provider with availability. And pls educate the pt on importance to keep the appt. CC: PCP as an FYI. 08/06/22: Admission to the hospital on 07/28 for nausea, vomiting and shortness of breath, was found to have large right-sided pleural effusion for which she had thoracostomy tube placement. She received pain medication following which she became very lethargic and had an aspiration event. She was subsequently intubated and then transferred to [facility] due to lack of ICU bed at [facility] or nearby hospitals. At age 2 cc, she was managed for aspiration pneumonia as well as pleural effusion. Chest tube was removed 07/30. Pleural effusion suggestive of hepatic hydrothorax. Once she was extubated and was on 3 L O2, she was transferred to regular floor, however she then left AMA on 08/01. Today, scheduled for a video visit. Reports worsening of shortness of breath over the last 2 days, has also noticed decrease in urine output in the same time. No nausea, vomiting, diarrhea. No chest pain or abdominal pain. She does report taking furosemide 40 mg daily. 08/18/22: Presenting for in person follow up after another ER visit 08/09/22. Went in for concern of decreased urine output. Was found to have normal kidney function but worsening R sided pleural effusion. Does not appear pt underwent thoracentesis or adjustment in her diuretics at that time. Today, coming in with her mom. Pt seated in a wheelchair. Describes compliance with furosemide 40 and low salt diet. Postponed her EGD/colo (initially scheduled for 08/12/22) as wasnt sure if she should be drinking golytely prep. Pt and mom have questions re shunt or drain placement for pleural effusion. 09/17/22: Reports feeling much better in terms of her abd distention and shortness of breath since increasing diuretics from last visit. Has been able to return to work due to better energy levels. Does report intolerance with Spironolactone - gets severe abd pain and nausea with Darrell. Did discontinue it for a few days but got same symptoms on rechallenge. Has icnreased lasix to 80 therefore, instead of 60, as she is not taking spirinolactone. Reports tried to reach our office for further instructions on CXR but could not get through - no correspondence in chart re her phone call however. 10/26/22-11/04/22: Hospitalised for worsening anemia noted on labs done pre-procedure to port placement. 10/27/22 EGD/colo: 1. Esophageal varices (banding) 2. Portal hypertensive gastropathy 3. Normal duodenum 4. Poor prep 5. No active bleeding 6. Internal and external hemorrhoids Path: A. Duodenum, biopsy: Duodenal mucosa within normal limits; preserved villous architecture and no increased intraepithelial lymphocytes seen. B. Stomach, random, biopsy: Gastric antral and body mucosa within normal limits; negative for Helicobacter pylori, intestinal metaplasia and dysplasia. 11/15/22: Doing much better in terms of breathing. Has better energy levels. Able to cont work although taking frequent breaks for bathroom since she is on diuretics is cumbersome. Although didnt report this when she was hospitalised, pt does tell me today tjat she was frequently skipping diuretics to avoid going to the bathroom frequently and was most likely reason for rapid reaccumulation of volume overload. Currently reports good adherence to all meds as below. Furosemide 80mg/day Spironolactone 150mg/day Lactulose titrated to 2-3 BMs Carvedilol 3.125 BID (metoprolol has been discontinued) EGD and colo results reviewed that was performed in house. Pt is aware that due to poor prep, will need a repeat colo within a year. We also discussed initiating referral to [facility] for transplant evaluation which the pt is agreeable to today. She also has a port and has [facility] services which we can utilise for blood draws and diuretic monitoring. 12/13/22: Seen in office for follow up. Diuretics were adjusted after last visit due to bump in Cr noted to 1.3 from 0.9. Currently on: Furosemide 60mg/day Spironolactone 150mg/day Lactulose titrated to 2-3 BMs Carvedilol 3.125 BID Reports increase in abd girth as well as shortness of breath on moderate activity. Still able to cont day to day function but notices this was not present when she was on previous dose. Labs reviewed from today - Cr up to 1.3 again despite a lower dose of diuretics from before. Reports good compliance with salt discretion which is evidences by urine lytes as well. [facility] referral was sent out 4 weeks ago but pt is yet to hear back. Echo still pending. 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 Other Mental health disorder Substance use disorder Social History Household Members: None Housing: Apartment Are you a primary chiropractic care to a significant other at home: No Do you presently have visiting nurse or other home services: No Alcohol intake: never Patient Tobacco Use Status: Current everyday Tobacco user Tobacco use type: Cigarette Cigarettes Per Day: 4 Years Smoked: 17 years old e-Cigarette/Vaping Use: Never Used service: No Current occupational status: employed Cognitive needs: No Hearing needs: No Vision needs: No Review of Systems Const All systems reviewed & are unremarkable except as noted in HPI and below Physical Exam Vital Signs: Last Vital Signs Pulse 81 12/13/22 10:31 BP 117/63 10/30/23 10:31 BMI result Body Mass Index 24.2 Gen Appear: NAD, bitemporal wasting HEENT: No scleral icterus Chest: CTA, diminished breath sounds at R lower base CVS: Regular S1/S2 no murmurs Abd: soft, nontender, distended, shifting dullness to percussion, bowel sounds active Ext: No peripheral edema bilaterally Neuro: A/Ox3, no asterixis Assessment & Plan Assessment & Plan (1) Ascites: Code(s): R18.8 - Other ascites (2) Pleural effusion: Code(s): J90 - Pleural effusion, not elsewhere classified (3) Hydrothorax: Code(s): J94.8 - Other specified pleural conditions (4) Hepatic encephalopathy: Code(s): K76.82 - Hepatic encephalopathy (5) Liver cirrhosis: Code(s): K74.60 - Unspecified cirrhosis of liver Qualifiers: Hepatic cirrhosis type: secondary biliary cirrhosis Qualified Code(s): K74.4 - Secondary biliary cirrhosis (6) Iron deficiency anemia: Code(s): D50.9 - Iron deficiency anemia, unspecified Qualifiers: Iron deficiency anemia type: chronic blood loss Qualified Code(s): D50.0 - Iron deficiency anemia secondary to blood loss (chronic) (7) Crohn's disease: Code(s): K50.90 - Crohn's disease, unspecified, without complications Qualifiers: Digestive disease complication type: without complication Gastrointestinal tract location: large intestine Qualified Code(s): K50.10 - Crohn's disease of large intestine without complications (8) Sarcopenia: Code(s): M62.84 - Sarcopenia Plan 1. Decomp cirrhosis: - ascites, hepatic hydrothorax and HE - MELD-Na 10, Child Haq Class B - Likely secondary to HCV (treated) + VIDES Appears to be diuretic intolerant based on renal function. Urine lytes suggestive of good adherence to salt restriction. Discussed that may need TIPS referral for fluid management. Awaiting echo/assessment of R heart function and pulm HTN. Will also set her up for therapeutic para and thora. In the meantime, if renal function does not improve can trial midodrine. Will also follow up on ass referral. Plan: - Cont lasix 60 and spironolactone 150. - Check BMP in 10 days. Reminder set to track results. - If Cr unchanged on next check, add midodrine 5 TID. Will also refer to Renal in that case. - US guided para and thora to be set up. Orders placed. - Sodium restriction to 2g/day. Pt advised to track her daily intake. - US Abd for HCC screening due 01/2023 - Cont Carvedilol 3.125 BID for primary variceal bleeding prophylaxis. Has room to go up on the dose based on vitals however deferred due to renal function. - Cont lactulose for management of HE. Refill sent. Rifaximin not covered by insurance. - Echocardiogram pending. Msg sent to follow up on status. Will initiate TIPS referral if R heart function normal and no TR or severe pulm HTN. - [facility] referral initially requested 11/16/22. Msg sent to follow up on status. - Boost plus Rxed for sarcopenia and protein-calorie malnutrition 2. ERNA: Likely 2/2 oozing from portal hypertensive complications such as varices/PHG. Will need repeat colo as above due to poor prep in colo done inpatient 10/2022. - Most recent CBC with Hb >8. - [place] to be booked within 6-12 months 3. Crohns disease: Appears to be in clinical remission. Follow up in 8 weeks with any available MD and then return to follow up with me after. Orders: Orders US paracentesis abd w/image Today R18.8 - Other ascites US drain thoracentesis w image Today J90 - Pleural effusion, not elsewhere classified Basic Metabolic Panel 10 Days R18.8 - Other ascites CA echo transthoracic complete Today K74.60 - Unspecified cirrhosis of liver Medications: New food supplemt, lactose-reduced (Boost Plus) 1 ea PO .BID 30 days 14,220 mL 2RF Changed From lactulose PO To lactulose To be taken for goal 2-3 loose bowel movements a day. 30 mL PO TID 90 days 8,100 mL 1RF Refilled potassium chloride ER 20 mEq PO DAILY 30 tabs 0RF magnesium oxide 400 mg PO BIDPC 60 tabs 0RF ondansetron 4 mg PO Q8H PRN 10 tabs 0RF nausea and vomiting Coding Level of Care Code Est Pt Level 5 (17038) Diagnoses Ascites R18.8 Pleural effusion J90 Hydrothorax J94.8 Hepatic encephalopathy K76.82 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 Crohn's disease of large intestine without complication K50.10 Digestive disease complication type: without complication Gastrointestinal tract location: large intestine Sarcopenia M62.84
[2022-12-13 10:31] VITALS: BP 117/63; PULSE 81; BMI 24.2
== END 2022-12-13 11:31 | disposition home or self-care (01) ==
PROVIDERS: PCP Internal Medicine; Visit Provider Internal Medicine
DX: R18.8 Other ascites (principal); K76.82 Hepatic encephalopathy; K74.4 Secondary biliary cirrhosis; D50.0 Iron deficiency anemia secondary to blood loss (chronic); K50.10 Crohn's disease of large intestine without complications; M62.84 Sarcopenia
CPT/HCPCS: 99214

== ENCOUNTER 2022-12-23 10:24 | Outpatient (REF) | payer OTHER, SELFPAY ==
[2022-12-23 12:18] LABS: INTERNATIONAL NORM RATIO 2.3 (0.9-1.1); Prothrombin Time 27.5 SEC (11.1-13.3)
[2022-12-23 12:23] LABS: Alanine Aminotransferase 9 U/L (0-31); Alkaline Phosphatase 66 U/L (39-117); Anion Gap 12 (12-20); Aspartate Amino Transferase 23 U/L (5-31); Bilirubin Direct 0.5 mg/dL (0.0-0.5); Blood Urea Nitrogen 16 mg/dL (9-16); Calcium 9.1 mg/dL (8.4-10.2); Carbon Dioxide 30 mmol/L (22-29); Chloride 103 mmol/L (96-108); Estimated Glomerular Filt Rate 49; Glucose Random 132 mg/dL (60-115); Iron 40 mcg/dL (30-160); Percent Iron Saturation 13 % (15-50); Sodium 141 mmol/L (135-145); Total Iron Binding Capacity 310 mcg/dL (228-428); Total Protein 6.5 g/dL (6.5-8.0); Unsaturated Iron Binding 270 ug/dL
[2022-12-23 12:39] LABS: Ferritin 30 ng/mL (10-250); TSH reflex Free T4 1.69 uIU/mL (0.32-4.0)
[2022-12-24 08:18] LABS: Hepatitis A Antibody IgG REACTIVE (Nonreactive); ~Hepatitis A Antibody IgG 1.29 S/CO (0.00-0.99)
[2022-12-24 08:44] LABS: HBS Num1 51.82 mIU/mL (0-7.99); HBc Num1 0.08 S/CO (0.00-0.79); Hepatitis B Core Antibody Nonreactive (Nonreactive); Hepatitis B Surface Antigen Negative (Negative); ~HepC Num1 9.84 S/CO (0.00-0.79); ~Hepatitis B Surface Antibody REACTIVE (Nonreactive); ~Hepatitis C Antibody Reactive (Nonreactive)
[2022-12-24 12:38] LABS: Alpha Fetoprotein 2.1 ng/mL
[2022-12-24 12:53] LABS: Transglutaminase IgA 2.1 U/mL
[2022-12-24 16:23] LABS: Ceruloplasmin 24 mg/dL (18-53)
[2022-12-27 14:19] LABS: HCV Log PCR <1.18 NOT DETECTED Log IU/mL (NOT DETECTED); HepC Viral Load <15 NOT DETECTED IU/mL (NOT DETECTED)
[2022-12-27 15:49] LABS: Mitochondrial Antibodies NEGATIVE (NEGATIVE)
[2022-12-29 14:09] LABS: Smooth Muscle Antibody <20 U (<20)
[2022-12-29 14:49] LABS: Anti Nuclear Antibody Screen POSITIVE (NEGATIVE); Anti Nuclear Antibody Titer 1:40 titer
[2023-01-01 15:12] LABS: A1A Clinical Indication NG; A1A Referring Physician NG
== END 2022-12-23 10:25 | disposition home or self-care (01) ==
LOC: HO.RESP 10:24
PROVIDERS: PCP Internal Medicine Gastroenterology; Visit Provider Nurse Practitioner Family
DX: J44.9 Chronic obstructive pulmonary disease, unspecified (principal); K76.9 Liver disease, unspecified
CPT/HCPCS: 36415; 80048; 80076; 82104; 82105; 82306; 82390; 82728; 83540; 84443; 85610; 86015; 86038; 86039; 86364; 86381; 86704; 86706; 86708; 86803; 87340; 87522

== ENCOUNTER 2023-02-17 07:23 | Outpatient (AMB) | payer OTHER, SELFPAY ==
--- NOTE | 2023-02-17 07:27 | A.OFFVIS_ITS ---
Vital Signs 02/17/23 07:35 Weight 154 lb BP 105/55 L Blood Pressure Location Lt brachial Position Sitting Pulse 72 Intake Visit Reasons: Dr. Garcia PT decomp cirrhosis Intake Note: Dr. Garcia current patient follow up for US and lab results. Patient said she wanted you to order some lab due her dizziness, tiredness and fatigue. Also she is concern about her low blood pressure because Dr. Garcia gave her HTN medication and she is become with low blood pressure couples of times already ??. Forensic Examiner Required: No Accompanied by: Self / Same As Patient Allergies ciprofloxacin [Cipro] Allergy (Unknown, Verified 11/09/23 11:38) swelling of the throat , hives nitrofurantoin [From Macrobid] Adverse Reaction (Verified 11/09/23 11:38) Liver cirrhosis decompensation Medication List - Last Reconciled 02/17/23 by Mickey Redmond MD acyclovir 400 mg PO BEDTIME albuterol sulfate 90 mcg/actuation 2 puffs inhalation Q4-6H PRN carvedilol 3.125 mg PO BID fluticasone propionate 50 mcg/actuation (Flonase Allergy Relief) 1 spray intranasal DAILY PRN food supplemt, lactose-reduced (Boost Plus) 1 ea PO .BID 30 days furosemide 60 mg See Protocol PO DAILY lactulose 30 mL PO TID 90 days levothyroxine 50 mcg PO DAILY@0600 magnesium oxide 400 mg PO BIDPC methadone 76 mg PO DAILY multivitamin 1 tab PO DAILY omeprazole 20 mg PO BEDTIME ondansetron 4 mg PO Q8H PRN potassium chloride ER 20 mEq PO DAILY spironolactone (Aldactone) 150 mg (3 x 50 mg) PO DAILY HPI HPI Dr. Garcia PT decomp cirrhosis: Details: GI clinic visit for this 52 year female for FU of ESLD (history of HCV - s/p SVR 2014) complicated by ascites, hepatic hydrothorax, portal hypertension with pancytopenia and hepatic encephalopathy. Pt has a hx of small bowel Crohn's disease dx in 1994 (s/p ileocecectomy 1994, partial small bowel resection 1996, small bowel stricturoplasty 1998) currently not on any meds, Patient was seen at [facility] clinic on 02/08/23 and has a FU appt later this month. [facility] reviewed IMAGING STUDIES: 11/01/22 ABD CTA SHOWED: Cirrhotic-appearing liver, splenomegaly and small amount of ascites. Patent portal veins. Varices. Large right pleural effusion. Constipation. Post right ventral abdominal wall hernia with mesh ENDOSCOPIC STUDIES: 10/27/22 egd and colon showed: 1. Esophageal varices (banding) 2. Portal hypertensive gastropathy 3. Normal duodenum 4. Poor prep 5. No active bleeding 6. Internal and external hemorrhoids Recommendations:?? * Await pathology results. * Start carvedilol 3.125 BID for primary variceal hemorrhage prophylaxis as long as tolerated by HR and BP * Repeat colonoscopy colon cancer screening within a year * Can stop octreotide and switch PPI to once daily PO. * Will discuss small bowel evaluation as outpatient. * s/p thoracentesis today for R sided hydrothorax. Will likely need further optimization of diuretics once on stable dosing of carvedilol. * Pt should also get a port before getting discharged to allow for timely lab monitoring TODAY'S VISIT: Pt Patient said she wanted you to order some lab due her dizziness, tiredness and fatigue. Also she is concern about her low blood pressure because Dr. Garcia gave her HTN medication and she is become with low blood pressure couples of times already ??. Pt complains of worsening fatigue and dizziness and hair loss. Concerned about low blood pressure. Seen at [facility] on 02/08/23. Scheduled for MR enterography on 02/21/23 Per pt, fecal calprotectin was normal - no active Crohn's disease. Taking Lactulose 3 tablespoon twice a day and having 2-3 BM per day (decreased from 3 times a day) Taking Lasix 40 mg twice a day and Spironolactone 50 mg twice a day Had thoracentesis ? 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 On disability - does not get enough money to cover all her expenses. PAST GI HISTORY BY REVIEW OF MEDICAL RECORDS: Pt was last seen by Dr. Garcia on 12/13 at 23 1. Decomp cirrhosis: - ascites, hepatic hydrothorax and HE - MELD-Na 10, Child Haq Class B - Likely secondary to HCV (treated) + VIDES Appears to be diuretic intolerant based on renal function. Urine lytes suggestive of good adherence to salt restriction. Discussed that may need TIPS referral for fluid management. Awaiting echo/assessment of R heart function and pulm HTN. Will also set her up for therapeutic para and thora. In the meantime, if renal function does not improve can trial midodrine. Will also follow up on [facility] referral. Plan: - Cont lasix 60 and spironolactone 150. - Check BMP in 10 days. Reminder set to track results. - If Cr unchanged on next check, add midodrine 5 TID. Will also refer to Renal in that case. - US guided para and thora to be set up. Orders placed. - Sodium restriction to 2g/day. Pt advised to track her daily intake. - US Abd for HCC screening due 01/2023 - Cont Carvedilol 3.125 BID for primary variceal bleeding prophylaxis. Has room to go up on the dose based on vitals however deferred due to renal function. - Cont lactulose for management of HE. Refill sent. Rifaximin not covered by insurance. - Echocardiogram pending. Msg sent to follow up on status. Will initiate TIPS referral if R heart function normal and no TR or severe pulm HTN. - [facility] referral initially requested 11/16/22. Msg sent to follow up on status. - Boost plus Rxed for sarcopenia and protein-calorie malnutrition 2. ERNA: Likely 2/2 oozing from portal hypertensive complications such as varices/PHG. Will need repeat colo as above due to poor prep in colo done inpatient 10/2022. - Most recent CBC with Hb >8. - [place] to be booked within 6-12 months 3. Crohns disease: Appears to be in clinical remission. Follow up in 8 weeks with any available MD and then return to follow up with me after. 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 Other Mental health disorder Substance use disorder Social History Household Members: None Housing: Apartment Are you a primary patient care coordinator to a significant other at home: No Do you presently have visiting nurse or other home services: No Alcohol intake: never Patient Tobacco Use Status: Current everyday Tobacco user Tobacco use type: Cigarette Cigarettes Per Day: 4 Years Smoked: 17 years old e-Cigarette/Vaping Use: Never Used service: No Current occupational status: employed Cognitive needs: No Hearing needs: No Vision needs: No Review of Systems Const All systems reviewed & are unremarkable except as noted in HPI and below Physical Exam Vital Signs: Last Vital Signs Pulse 72 02/17/23 07:35 BP 105/55 L 02/17/23 07:35 Patient is afebrile and hemodynamically stable Const Other: Tearful on examination General: cooperative HEENT Head: Yes normal to inspection and Yes atraumatic Eyes General: appearance normal, both eyes and all related structures Pupils: Equal, round and reactive pupils present EOM: EOMs intact bilaterally Neck Neck: Yes normal visual inspection, Yes full ROM, Yes supple and No tender Chest Chest palpation & inspection: normal inspection of the chest and normal palpation of entire chest wall Resp Effort & Inspection: normal respiratory effort, able to speak in complete sentences, no cough and no respiratory distress Auscultation: clear to auscultation bilaterally Cardio Rate: regular rate Rhythm: regular rhythm Peripheral pulses: Peripheral pulses 2+ throughout GI Inspection: Yes normal to inspection, No Abdominal wall edema and No distended Palpation (GI): Soft to palpation, not firm, nontender, no guarding and not rigid Back/Spine/Pelvis Back: No back tenderness Neuro Cranial nerves: Yes Equal, round and reactive pupils present Extrem Other: 2+ bilateral lower extremity edema Assessment & Plan Assessment & Plan (1) Iron deficiency anemia: Code(s): D50.9 - Iron deficiency anemia, unspecified Category: Medical Qualifiers: Iron deficiency anemia type: chronic blood loss Qualified Code(s): D50.0 - Iron deficiency anemia secondary to blood loss (chronic) (2) Liver cirrhosis: Code(s): K74.60 - Unspecified cirrhosis of liver Category: Medical Qualifiers: Hepatic cirrhosis type: secondary biliary cirrhosis Qualified Code(s): K74.4 - Secondary biliary cirrhosis Plan 52 YF with ESLD (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 Pt has a hx of small bowel Crohn's disease dx in 1994 (s/p ileocecectomy 1994, partial small bowel resection 1996, small bowel stricturoplasty 1998) currently not on any meds, Patient was seen at [facility] clinic on 02/08/23 and is being evaluated for a Liver Transplant. Pt complains of worsening fatigue, dizziness and hair loss and concerned about low blood pressure. Seen at [facility] on 02/08/23 and is scheduled for MR enterography on 02/21/23 Per pt, fecal calprotectin was normal - no active Crohn's disease. Taking Lactulose 3 tablespoon twice a day and having 2-3 BM per day (decreased from 3 times a day) Taking Lasix 40 mg twice a day and Spironolactone 50 mg twice a day - will be readjusted according to lab results Pt was advised to resume oral iron and have repeat labs checked Fu in 4 weeks Orders: Orders Blood Urea Nitrogen 02/17/23 K74.60 - Unspecified cirrhosis of liver C Reactive Protein 02/17/23 K74.60 - Unspecified cirrhosis of liver Complete Blood Count Auto Diff 02/17/23 K74.60 - Unspecified cirrhosis of liver Creatinine 02/17/23 K74.60 - Unspecified cirrhosis of liver Basic Metabolic Panel 02/17/23 K74.60 - Unspecified cirrhosis of liver Ferritin 02/17/23 K74.60 - Unspecified cirrhosis of liver Medications: New ferrous sulfate 324 mg PO DAILY 90 tabs 1RF 90 days D50.9 - Iron deficiency anemia, unspecified Changed From ondansetron 4 mg PO Q8H PRN 10 tabs 0RF nausea and vomiting To ondansetron 4 mg PO Q8H PRN 10 tabs 1RF nausea and vomiting 30 days From furosemide 60 mg See Protocol PO DAILY To furosemide 40 mg See Protocol PO BID 360 tabs 1RF 90 days From spironolactone 150 mg (3 x 50 mg) PO DAILY 90 tabs 0RF To spironolactone (Aldactone) 50 mg PO BID 180 tabs 1RF 90 days Coding Level of Care Code Est Pt Level 4 (89475) Diagnoses Iron deficiency anemia due to chronic blood loss D50.0 Iron deficiency anemia type: chronic blood loss 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
[2023-02-17 07:35] VITALS: BP 105/55; PULSE 72
== END 2023-02-17 08:14 | disposition home or self-care (01) ==
PROVIDERS: PCP Internal Medicine; Visit Provider Internal Medicine Gastroenterology
DX: D50.0 Iron deficiency anemia secondary to blood loss (chronic) (principal); K74.4 Secondary biliary cirrhosis
CPT/HCPCS: 99499

== ENCOUNTER → 2023-02-17 07:23 | Outpatient (BNVA) | payer OTHER, SELFPAY | PROVIDERS: PCP Internal Medicine; Visit Provider Internal Medicine Gastroenterology ==

== ENCOUNTER 2023-03-30 09:07 | Outpatient (AMB) | payer OTHER, SELFPAY ==
--- NOTE | 2023-03-30 09:14 | MHC.OFFVIS ---
Intake Vital Signs 03/30/23 09:18 Height 5 ft 4 in Weight 144 lb BMI 24.7 BP 111/53 L Blood Pressure Location Lt brachial Position Sitting Pulse 76 Intake Visit Reasons: f/u Intake Note: Patient follow up for Iron. Patient cc: no appetite, loose abram and denies any other GI issues. Patient still waiting for he boost supplemental drink. 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 Accompanied by: Self / Same As Patient Allergies ciprofloxacin [Cipro] Allergy (Unknown, Verified 03/30/23 09:11) swelling of the throat , hives nitrofurantoin [From Macrobid] Adverse Reaction (Verified 03/30/23 09:11) Liver cirrhosis decompensation Medication List - Last Reconciled 03/30/23 by Romana Garcia MD acyclovir 400 mg PO BEDTIME albuterol sulfate 90 mcg/actuation 2 puffs inhalation Q4-6H PRN carvedilol 6.25 mg PO BID ferrous sulfate 324 mg PO DAILY 90 days fluticasone propionate 50 mcg/actuation (Flonase Allergy Relief) 1 spray intranasal DAILY PRN food supplemt, lactose-reduced (Boost Plus) 1 ea PO .BID 30 days furosemide 40 mg See Protocol PO BID 90 days levothyroxine 50 mcg PO DAILY@0600 methadone 76 mg PO DAILY multivitamin 1 tab PO DAILY omeprazole 20 mg PO BEDTIME ondansetron 4 mg PO Q8H PRN 30 days peg 3350-electrolytes 236-22.74-6.74 -5.86 gram (Golytely) 240 mL PO Q10M potassium chloride ER 20 mEq PO DAILY spironolactone (Aldactone) 50 mg PO BID 90 days HPI HPI Comments History of Present Illness Details This is a 51y.o female with past medical history of HCV (s/p SVR 2014) that led to liver cirrhosis, complicated by portal hypertension with ascites, small bowel Crohn's disease dx in 1994 (s/p ileocecectomy 1994, partial small bowel resection 1996, small bowel stricturoplasty 1998) currently not on any meds, who presents to our office for follow up. 05/10/22: Referred by Dr Ortiz for ERNA. Prev pt of Dr Bryant. Main complaints today are fatigue, loss of energy, hair loss. To recap, pt had hx of Hep C contracted through [facility]. Underwent treatment with Sovaldi and Ribavir[place] x 2014 [place] [facility] with reported SVR. She is unable to recall when she was diagnosed with cirrhosis but tells me that she had been seeing Dr Bryant for it x many years. Documentation from 2020 reports ascites on imaging and pt was started on aldactone 50 however she does not remember being on any meds. Last imaging: last ultrasound and CT 04/2021: Ascites. Cirrhotic liver. Last endoscopy: Per pt done in 2019 for crohns, and variceal screening and was overall normal. No records available. In terms of her worsening anemia, initially had a drop in counts in April 2021 when she admitted for E coli sepsis and C Diff and at that time attributed to inflammatory anemia. Since then has been seeing [facility] as [facility]. Started on IV infusions but with less than expected response. Then Hb dropped again to 6.8-7 earlier this year. Pt reports no gastrointestinal complaints to include abd pain, N,V, D. No blood in stool or melena. No changes in appetite. Does not report unintentional weight loss. Pt also has hx of Crohns as above however reports endoscopic remission since her bowel surgeries in as above. Has not taken any meds for it. Last flare requiring pred was . Fam hx: mother and mat aunt: Crohns. Grandfather: etOH related cirrhosis. Correspondence: On 05/27/22 @ 09:06 Romana Garcia Wrote To David Ortiz (2) Mandy Could we pls look into why the pt canceled her procedures? These were booked as urgent due to anemia and cirrhosis. Kindly rebook at the earliest, can be with any provider with availability. And pls educate the pt on importance to keep the appt. CC: PCP as an FYI. 08/06/22: Admission to the hospital on 07/28 for nausea, vomiting and shortness of breath, was found to have large right-sided pleural effusion for which she had thoracostomy tube placement. She received pain medication following which she became very lethargic and had an aspiration event. She was subsequently intubated and then transferred to [facility] due to lack of ICU bed at [facility] or nearby hospitals. At age 2 cc, she was managed for aspiration pneumonia as well as pleural effusion. Chest tube was removed 07/30. Pleural effusion suggestive of hepatic hydrothorax. Once she was extubated and was on 3 L O2, she was transferred to regular floor, however she then left AMA on 08/01. Today, scheduled for a video visit. Reports worsening of shortness of breath over the last 2 days, has also noticed decrease in urine output in the same time. No nausea, vomiting, diarrhea. No chest pain or abdominal pain. She does report taking furosemide 40 mg daily. 08/18/22: Presenting for in person follow up after another ER visit 08/09/22. Went in for concern of decreased urine output. Was found to have normal kidney function but worsening R sided pleural effusion. Does not appear pt underwent thoracentesis or adjustment in her diuretics at that time. Today, coming in with her mom. Pt seated in a wheelchair. Describes compliance with furosemide 40 and low salt diet. Postponed her EGD/colo (initially scheduled for 08/12/22) as wasnt sure if she should be drinking golytely prep. Pt and mom have questions re shunt or drain placement for pleural effusion. 09/17/22: Reports feeling much better in terms of her abd distention and shortness of breath since increasing diuretics from last visit. Has been able to return to work due to better energy levels. Does report intolerance with Spironolactone - gets severe abd pain and nausea with [place]. Did discontinue it for a few days but got same symptoms on rechallenge. Has icnreased lasix to 80 therefore, instead of 60, as she is not taking spirinolactone. Reports tried to reach our office for further instructions on CXR but could not get through - no correspondence in chart re her phone call however. 10/26/22-11/04/22: Hospitalised for worsening anemia noted on labs done pre-procedure to port placement. 10/27/22 EGD/colo: 1. Esophageal varices (banding) 2. Portal hypertensive gastropathy 3. Normal duodenum 4. Poor prep 5. No active bleeding 6. Internal and external hemorrhoids Path: A. Duodenum, biopsy: Duodenal mucosa within normal limits; preserved villous architecture and no increased intraepithelial lymphocytes seen. B. Stomach, random, biopsy: Gastric antral and body mucosa within normal limits; negative for Helicobacter pylori, intestinal metaplasia and dysplasia. 11/15/22: Doing much better in terms of breathing. Has better energy levels. Able to cont work although taking frequent breaks for bathroom since she is on diuretics is cumbersome. Although didnt report this when she was hospitalised, pt does tell me today tjat she was frequently skipping diuretics to avoid going to the bathroom frequently and was most likely reason for rapid reaccumulation of volume overload. Currently reports good adherence to all meds as below. Furosemide 80mg/day Spironolactone 150mg/day Lactulose titrated to 2-3 BMs Carvedilol 3.125 BID (metoprolol has been discontinued) EGD and colo results reviewed that was performed in house. Pt is aware that due to poor prep, will need a repeat colo within a year. We also discussed initiating referral to [facility] for transplant evaluation which the pt is agreeable to today. She also has a port and has VNA services which we can utilise for blood draws and diuretic monitoring. 12/13/22: Seen in office for follow up. Diuretics were adjusted after last visit due to bump in Cr noted to 1.3 from 0.9. Currently on: Furosemide 60mg/day Spironolactone 150mg/day Lactulose titrated to 2-3 BMs Carvedilol 3.125 BID Reports increase in abd girth as well as shortness of breath on moderate activity. Still able to cont day to day function but notices this was not present when she was on previous dose. Labs reviewed from today - Cr up to 1.3 again despite a lower dose of diuretics from before. Reports good compliance with salt discretion which is evidences by urine lytes as well. [facility] referral was sent out 4 weeks ago but pt is yet to hear back. Echo still pending. 02/25/23: Was seen in the interim Dr Redmond, reported borderline pressures at that time and diuretics were adjusted. Was also restarted on PO iron supplements for ERNA. 03/30/23: Here for follow up. Feeling much better than the last time she was seen. Main CC is hairfall. Otherwise from liver standpoint reports no abd pain, no abd distention, rash or fatigue. 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 Also established at [facility] and undergoing work up for transplant evaluation but reports was told has low MELD and will likely not need to be listed. Pt has not gotten Boost yet - will follow up. Otherwise weight curve reassuringly stable. Current meds: Furosemide 40mg/day Spironolactone 100mg/day Lactulose discontinued earlier this month by Jorge Carvedilol 6.25 BID Ferrous sulphate 325 mg PO daily [facility] Medical History (Updated 02/18/23 @ 10:51 by Camila Patel MD) History of central line-associated bloodstream infection (CLABSI) Liver cirrhosis Acute on chronic anemia Ascites Pancytopenia History of hepatitis C COPD (chronic obstructive pulmonary disease) Hydrothorax Pleural effusion, right Iron deficiency anemia Ascites of liver Hypertension, essential Hypothyroidism Allergic rhinitis Lipid disorder Rosacea Rheumatoid arthritis 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 Other Mental health disorder Substance use disorder Social History Household Members: None Housing: Apartment Are you a primary transitional care nurse to a significant other at home: No Do you presently have visiting nurse or other home services: No Alcohol intake: never Patient Tobacco Use Status: Current everyday Tobacco user Tobacco use type: Cigarette Cigarettes Per Day: 4 Years Smoked: 17 years old e-Cigarette/Vaping Use: Never Used service: No Current occupational status: employed Cognitive needs: No Hearing needs: No Vision needs: No Review of Systems Const All systems reviewed & are unremarkable except as noted in HPI and below Physical Exam Vital Signs: Last Vital Signs Pulse 76 03/30/23 09:18 BP 111/53 L 03/30/23 09:18 BMI result Body Mass Index 24.7 No acute distress, pale appearing No icterus No overt respiratory distress Abdomen soft, nontender, nondistended No asterixis Assessment & Plan Assessment & Plan (1) Ascites: Code(s): R18.8 - Other ascites (2) Pleural effusion: Code(s): J90 - Pleural effusion, not elsewhere classified (3) Hydrothorax: Code(s): J94.8 - Other specified pleural conditions (4) Hepatic encephalopathy: Code(s): K76.82 - Hepatic encephalopathy (5) Liver cirrhosis: Code(s): K74.60 - Unspecified cirrhosis of liver Qualifiers: Hepatic cirrhosis type: secondary biliary cirrhosis Qualified Code(s): K74.4 - Secondary biliary cirrhosis (6) Iron deficiency anemia: Code(s): D50.9 - Iron deficiency anemia, unspecified Qualifiers: Iron deficiency anemia type: chronic blood loss Qualified Code(s): D50.0 - Iron deficiency anemia secondary to blood loss (chronic) (7) Crohn's disease: Code(s): K50.90 - Crohn's disease, unspecified, without complications Qualifiers: Gastrointestinal tract location: large intestine Digestive disease complication type: without complication Qualified Code(s): K50.10 - Crohn's disease of large intestine without complications (8) Sarcopenia: Code(s): M62.84 - Sarcopenia Plan 1. Decomp cirrhosis: - ascites, hepatic hydrothorax and HE - Likely secondary to HCV (treated) + VIDES Reports significant improvement in her fluid status, since coming to the hospital. Now on furosemide 40 and spironolactone 100, and does not appear to be retaining fluid on clinical exam. Also reports comfortable breathing, but will get an x-ray to evaluate hepatic hydrothorax. Per patient report, has been advised to not pursue TIPS at this time by [facility] Hep. Will get records. Plan: - Cont lasix 40 and spironolactone 100. - Check updated MELD labs - Sodium restriction to 2g/day. Pt advised to track her daily intake. - Chest XR ordered for pleural effusion - HCC screening - reports sg for MRI abd through [facility] next week. - Cont Carvedilol 6.25 BID for primary variceal bleeding prophylaxis. - No evidence of HE on assessment today. Cont to HOLD lactulose for now. - Will get [facility] records for reconciliation of care. - Pt not on protein supplement shakes - will send msg to physician office secretary to follow up 2. ERNA: Likely 2/2 oozing from portal hypertensive complications such as varices/PHG. Will need repeat colo as above due to poor prep in colo done inpatient 10/2022. Possibly contributing to her hairfall as well. - Will check with Hematology (Dr Patel) if can be resumed on Venofer - Recheck iron, B12 and folate - EGD/colo to be booked within 6-8 weeks. - Split PEG prep instructions handout given 3. Crohns disease: Appears to be in clinical remission however due for colo as above. Follow up after scopes Orders: Orders Comprehensive Met. Panel Today D64.9 - Anemia, unspecified, R18.8 - Other ascites Potassium Urine Random Today D64.9 - Anemia, unspecified, R18.8 - Other ascites Sodium Urine Random Today D64.9 - Anemia, unspecified, R18.8 - Other ascites Ferritin Today D64.9 - Anemia, unspecified XR chest 2V Today J90 - Pleural effusion, not elsewhere classified Complete Blood Count no Diff Today D64.9 - Anemia, unspecified, R18.8 - Other ascites Prothrombin Time INR Today D64.9 - Anemia, unspecified, R18.8 - Other ascites IRON PROFILE Today D64.9 - Anemia, unspecified Vitamin B12 and Folate Today D64.9 - Anemia, unspecified Medications: New peg 3350-electrolytes 236-22.74-6.74 -5.86 gram (Golytely) as per split prep instructions, until fecal effluent is clear 240 mL PO Q10M 4,000 mL 0RF colonoscopy Changed From carvedilol 6.25 mg PO BID To carvedilol 6.25 mg PO BID 90 days 180 tabs 0RF Refilled omeprazole 20 mg PO BEDTIME 90 caps 0RF Discontinued lactulose To be taken for goal 2-3 loose bowel movements a day. Discontinued Reason: Doctor's Order 30 mL PO TID 90 days 8,100 mL 1RF Coding Level of Care Code Est Pt Level 5 (32115) Diagnoses Ascites R18.8 Pleural effusion J90 Hydrothorax J94.8 Hepatic encephalopathy K76.82 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 Crohn's disease of large intestine without complication K50.10 Gastrointestinal tract location: large intestine Digestive disease complication type: without complication Sarcopenia M62.84
[2023-03-30 09:18] VITALS: BP 111/53; PULSE 76; BMI 24.7
== END 2023-03-30 10:17 | disposition home or self-care (01) ==
PROVIDERS: PCP Internal Medicine; Visit Provider Internal Medicine
DX: R18.8 Other ascites (principal); J90 Pleural effusion, not elsewhere classified; J94.8 Other specified pleural conditions; K76.82 Hepatic encephalopathy; K74.4 Secondary biliary cirrhosis; D50.0 Iron deficiency anemia secondary to blood loss (chronic); K50.10 Crohn's disease of large intestine without complications; M62.84 Sarcopenia
CPT/HCPCS: 99214

== ENCOUNTER 2023-03-30 09:07 | Outpatient (REF) | payer OTHER, SELFPAY ==
[2023-03-30 11:57] LABS: Hematocrit 26.6 % (37.0-47.0); Hemoglobin 8.3 g/dl (12.0-16.0); Mean Corpuscular HGB Conc 31.2 g/dl (31.0-35.0); Mean Corpuscular Hemoglobin 30.6 pg (27.0-33.0); Mean Corpuscular Volume 98.2 fL (80.0-98.0); Mean Platelet Volume 12.1 fL (9.4-12.3); Red Blood Count 2.71 X10*6/uL (4.20-5.50); Red Cell Distribution Width 18.8 % (11.0-16.0); White Blood Count 3.7 X10*3/uL (4.8-10.8)
[2023-03-30 12:00] LABS: INTERNATIONAL NORM RATIO 2.8 (0.9-1.1); Prothrombin Time 34.1 SEC (11.1-13.3)
[2023-03-30 12:04] LABS: Potassium Urine Random 15.4 mmol/L
[2023-03-30 12:07] LABS: Platelet Count 85 X10*3/uL (160-400)
[2023-03-30 12:18] LABS: Alanine Aminotransferase 12 U/L (0-31); Albumin Level 2.8 g/dL (3.5-5.0); Alkaline Phosphatase 121 U/L (39-117); Anion Gap 11 (12-20); Aspartate Amino Transferase 30 U/L (5-31); Blood Urea Nitrogen 20 mg/dL (9-16); Calcium 8.8 mg/dL (8.4-10.2); Carbon Dioxide 34 mmol/L (22-29); Chloride 100 mmol/L (96-108); Estimated Glomerular Filt Rate 39; Glucose Random 129 mg/dL (60-115); Iron 37 mcg/dL (30-160); Percent Iron Saturation 12 % (15-50); Potassium 3.9 mmol/L (3.3-5.1); Sodium 141 mmol/L (135-145); Total Iron Binding Capacity 309 mcg/dL (228-428); Total Protein 6.7 g/dL (6.5-8.0); Unsaturated Iron Binding 272 ug/dL
[2023-03-30 12:28] LABS: Ferritin 33 ng/mL (10-250)
[2023-03-30 12:43] LABS: Folate 15.1 ng/mL (> or = 4.0); Vitamin B12 1804 pg/mL (200-900)
== END 2023-03-30 09:08 | disposition home or self-care (01) ==
LOC: HO.LAB 09:07
PROVIDERS: PCP Internal Medicine; Visit Provider Internal Medicine
DX: R18.8 Other ascites (principal); D64.9 Anemia, unspecified; K76.82 Hepatic encephalopathy; K74.4 Secondary biliary cirrhosis; K50.10 Crohn's disease of large intestine without complications
CPT/HCPCS: 36415; 80053; 82607; 82728; 82746; 83540; 84133; 84300; 85027; 85610; 99212

== ENCOUNTER 2023-03-30 13:42 | Outpatient (AMB) | payer OTHER, SELFPAY ==
[2023-03-30 13:43] VITALS: BP 122/62; PULSE 76; O2SAT 98; BMI 25.3
--- NOTE | 2023-03-30 13:43 | MHC.PC.OV ---
Vital Signs 03/30/23 13:43 Height 5 ft 4 in Weight 147 lb 8 oz BMI 25.3 BP 122/62 Blood Pressure Location Lt brachial Position Sitting Pulse 76 Pulse Source Pulse Oximeter Pulse Oximetry (%) 98 Oxygen Delivery Method Room Air Intake Visit Reasons: Dr. Garcia PT decomp cirrhosis Allergies ciprofloxacin [Cipro] Allergy (Unknown, Verified 03/30/23 13:43) swelling of the throat , hives nitrofurantoin [From Macrobid] Adverse Reaction (Verified 03/30/23 13:43) Liver cirrhosis decompensation Medication List - Last Reconciled 03/30/23 by David Ortiz MD acyclovir 400 mg PO BEDTIME albuterol sulfate 90 mcg/actuation 2 puffs inhalation Q4-6H PRN carvedilol 6.25 mg PO BID 90 days ferrous sulfate 324 mg PO DAILY 90 days fluticasone propionate 50 mcg/actuation (Flonase Allergy Relief) 1 spray intranasal DAILY PRN food supplemt, lactose-reduced (Boost Plus) 1 ea PO .BID 30 days furosemide 40 mg See Protocol PO BID 90 days levothyroxine 50 mcg PO DAILY@0600 methadone 76 mg PO DAILY multivitamin 1 tab PO DAILY omeprazole 20 mg PO BEDTIME ondansetron 4 mg PO Q8H PRN 30 days peg 3350-electrolytes 236-22.74-6.74 -5.86 gram (Golytely) 240 mL PO Q10M spironolactone (Aldactone) 50 mg PO BID 90 days Tobacco use date assessed: 03/30/23 Dental Screening Dental Screen Date: 03/30/23 Did you have a dental visit in the last 12 months?: Yes Did you have a dental problem in the last 6 months where you did not have access to dental care?: No Was dental information given to patient?: Patient has dentist HPI Dr. 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 patient says that it was given to her when she was admitted in the hospital and had shortness of breath However she no longer needs it her oxygen saturation is 98% on room air Patient is diabetic, her metformin was stopped due to nephropathy, her recent labs shows GFR in 30s She wanted hemoglobin A1c done today which is 5.5 Patient is also on levothyroxine 50 mcg, last TSH was checked in December which is within normal limit [facility] Medical History History of central line-associated bloodstream infection (CLABSI) Liver cirrhosis Acute on chronic anemia Ascites Pancytopenia History of hepatitis C COPD (chronic obstructive pulmonary disease) Hydrothorax Pleural effusion, right Iron deficiency anemia Ascites of liver Hypertension, essential Hypothyroidism Allergic rhinitis Lipid disorder Rosacea Rheumatoid arthritis 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 Other Mental health disorder Substance use disorder Social History Household Members: None Housing: Apartment Are you a primary out of school hours care worker to a significant other at home: No Do you presently have visiting nurse or other home services: No Alcohol intake: never Patient Tobacco Use Status: Current everyday Tobacco user Tobacco use type: Cigarette Years Smoked: 17 years old e-Cigarette/Vaping Use: Never Used service: No Current occupational status: employed Cognitive needs: No Hearing needs: No Vision needs: No Questionnaire Thrive Questionnaire Date Thrive assessed: 10/27/22 AUDIT C Alcohol Use Questionnaire (AUDIT-C) 1. How often do you have a drink containing alcohol?: Never 3. How often do you have six or more drinks on one occasion?: Never Total Score: 0 Score Reviewed/Action Taken: Yes NAV-7 AMB Questionnaire NAV-7 Date NAV - 7 assessed: 09/24/22 Source: Developed by Drs. Valeriano Bhakta, Lara Quinones, Julian Golden and colleagues, with an educational maria from [employer]. Review of Systems Const Denies chills and Denies fever(s) ENT Denies epistaxis and Denies nasal discharge Card Denies chest pain Resp Denies chest congestion, Denies cough and Denies hemoptysis Skin/Breast Denies rash Neuro Reports no additional complaints Psych Reports no additional complaints Endo Reports no additional complaints Physical exam (Primary Care) Vital Signs: Last Vital Signs Pulse 76 03/30/23 13:43 BP 122/62 03/30/23 13:43 Pulse Ox 98 03/30/23 13:43 Oxygen Delivery Method Room Air 03/30/23 13:43 BMI result Body Mass Index 25.3 Tobacco/Smoking Status: Tobacco use Status Tobacco use date assessed 03/30/23 03/30/23 13:50 Patient Tobacco Use Status Current everyday Tobacco 03/30/23 13:50 Tobacco use type Cigarette 03/30/23 13:50 e-Cigarette/Vaping Use Never Used 03/30/23 13:50 Thrive Assessment: Date of Thrive Assessment Date Thrive assessed 10/27/22 03/30/23 13:50 Const General: cooperative, comfortable and no acute distress Orientation/consciousness: patient oriented x3 HENMT Head: Yes normocephalic Eyes General: appearance normal, both eyes and all related structures Neck Neck: Yes supple Resp Effort & Inspection: normal respiratory effort, no cough and no stridor Cardio Rhythm: regular rhythm Heart sounds: S1 normal heart sound present and S2 normal heart sound present GI Other: Minimal fluid thrill, abdomen nontender bowel sound positive Skin General skin exam: turgor normal Neuro General: patient oriented x3, tone normal and moves all extremities Extrem Right lower extremity: no edema Left lower extremity: no edema Results AMB Hemoglobin A1c AMB Hemoglobin A1c 5.5 % Last Edit by Devante Arellano CMA on 03/30/23 14:13 Results Reviewed Results Reviewed: Laboratory Last Values Hgb A1c (Clinic) 5.5 % (4.0-6.0) 03/30/23 14:12 Assessment and Plan Assessment & Plan (1) Liver cirrhosis: Code(s): K74.60 - Unspecified cirrhosis of liver Qualifiers: Hepatic cirrhosis type: secondary biliary cirrhosis Qualified Code(s): K74.4 - Secondary biliary cirrhosis (2) Crohn's disease: Code(s): K50.90 - Crohn's disease, unspecified, without complications Qualifiers: Gastrointestinal tract location: large intestine Digestive disease complication type: without complication Qualified Code(s): K50.10 - Crohn's disease of large intestine without complications (3) Diabetes 1.5, managed as type 2: Code(s): E13.9 - Other specified diabetes mellitus without complications (4) Nephropathy: Code(s): N28.9 - Disorder of kidney and ureter, unspecified (5) Iron deficiency anemia: Code(s): D50.9 - Iron deficiency anemia, unspecified Qualifiers: Iron deficiency anemia type: chronic blood loss Qualified Code(s): D50.0 - Iron deficiency anemia secondary to blood loss (chronic) (6) Ascites of liver: Code(s): R18.8 - Other ascites (7) Hypothyroidism: Code(s): E03.9 - Hypothyroidism, unspecified Qualifiers: Hypothyroidism type: unspecified Qualified Code(s): E03.9 - Hypothyroidism, unspecified Plan Patient is a 52-year-old female with liver cirrhosis chronic hepatitis-C infection she is seeing Dr Garcia for management and continue to be anemic on iron supplement she has lost lot of weight, and is now on nutritional supplement she has aceites which is minimal at this time 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 patient says that it was given to her when she was admitted in the hospital and had shortness of breath However she no longer needs it her oxygen saturation is 98% on room air Patient is diabetic, her metformin was stopped due to nephropathy, her recent labs shows GFR in 30s She wanted hemoglobin A1c done today which is 5.5 Patient is also on levothyroxine 50 mcg, last TSH was checked in December which is within normal limit Orders: Orders AMB Hemoglobin A1c Today Z13.9 - Encounter for screening, unspecified Coding Level of Care Code Est Pt Level 4 (65750) Diagnoses Secondary biliary cirrhosis K74.4 Hepatic cirrhosis type: secondary biliary cirrhosis Crohn's disease of large intestine without complication K50.10 Gastrointestinal tract location: large intestine Digestive disease complication type: without complication Diabetes 1.5, managed as type 2 E13.9 Nephropathy N28.9 Iron deficiency anemia due to chronic blood loss D50.0 Iron deficiency anemia type: chronic blood loss Ascites of liver R18.8 Hypothyroidism, unspecified type E03.9 Hypothyroidism type: unspecified
== END 2023-03-30 15:21 | disposition home or self-care (01) ==
PROVIDERS: PCP Internal Medicine; Visit Provider Internal Medicine
DX: K74.4 Secondary biliary cirrhosis (principal); K50.10 Crohn's disease of large intestine without complications; E13.9 Other specified diabetes mellitus without complications; N28.9 Disorder of kidney and ureter, unspecified; D50.0 Iron deficiency anemia secondary to blood loss (chronic); R18.8 Other ascites; E03.9 Hypothyroidism, unspecified
CPT/HCPCS: 83036; 99214

== ENCOUNTER 2023-04-06 09:29 | Outpatient (REF) | payer OTHER, SELFPAY ==
[2023-04-06 10:46] LABS: Anion Gap 10 (12-20); Blood Urea Nitrogen 17 mg/dL (9-16); Calcium 8.3 mg/dL (8.4-10.2); Carbon Dioxide 29 mmol/L (22-29); Chloride 104 mmol/L (96-108); Estimated Glomerular Filt Rate 54; Glucose Random 168 mg/dL (60-115); Potassium 3.9 mmol/L (3.3-5.1); Sodium 139 mmol/L (135-145)
== END 2023-04-06 09:30 | disposition home or self-care (01) ==
LOC: HO.LAB 09:29
PROVIDERS: Visit Provider Internal Medicine
DX: R18.8 Other ascites (principal)
CPT/HCPCS: 36415; 80048

== ENCOUNTER 2023-04-11 11:31 | Outpatient (REF) | payer OTHER, SELFPAY | END 2023-04-11 11:32 | disposition home or self-care (01) | LOC: HO.MDS 11:31 | PROVIDERS: Visit Provider Internal Medicine | DX: D50.9 Iron deficiency anemia, unspecified (principal) | CPT/HCPCS: 96365; J1642; J1756 ==

== ENCOUNTER 2023-04-14 | Outpatient (REF) | payer OTHER, SELFPAY ==
--- NOTE | ~2023-04-14 | XR_ITS ---
EXAMINATION: XR CHEST CLINICAL INFORMATION: Pleural effusion not otherwise classified. COMPARISON: November 15, 2022 chest radiograph. TECHNIQUE: 2 views of the chest were obtained. FINDINGS: There is no gross pneumothorax. Heart size is normal. Redemonstration of left jugular port with tip projecting over the cavoatrial junction. Mild degenerative changes in the thoracic spine. Redemonstration of focal scar or atelectasis in the right upper lobe, decreased. Near complete resolution of previously noted right pleural effusion and right basilar atelectasis. XR/XR chest 2V IMPRESSION: Near complete resolution of previously noted right pleural effusion and right basilar atelectasis.
== END 2023-04-14 00:01 | disposition home or self-care (01) ==
LOC: CF
PROVIDERS: PCP Internal Medicine; Visit Provider Internal Medicine
DX: J90 Pleural effusion, not elsewhere classified (principal); K74.60 Unspecified cirrhosis of liver
CPT/HCPCS: 71046

== ENCOUNTER 2023-04-22 15:07 | Outpatient (REF) | payer OTHER, SELFPAY ==
[2023-04-22 16:58] LABS: Hematocrit 27.8 % (37.0-47.0); Hemoglobin 8.6 g/dl (12.0-16.0); Mean Corpuscular HGB Conc 30.9 g/dl (31.0-35.0); Mean Corpuscular Hemoglobin 31.3 pg (27.0-33.0); Mean Corpuscular Volume 101.1 fL (80.0-98.0); Mean Platelet Volume 12.3 fL (9.4-12.3); Red Blood Count 2.75 X10*6/uL (4.20-5.50); White Blood Count 3.4 X10*3/uL (4.8-10.8)
[2023-04-22 17:00] LABS: Platelet Count 77 X10*3/uL (160-400)
== END 2023-04-22 15:08 | disposition home or self-care (01) ==
LOC: HO.LAB 15:07
PROVIDERS: PCP Internal Medicine; Visit Provider Internal Medicine
DX: D50.0 Iron deficiency anemia secondary to blood loss (chronic) (principal)
CPT/HCPCS: 36415; 85027

== ENCOUNTER 2023-04-25 10:09 | Outpatient (REF) | payer OTHER, SELFPAY ==
[2023-04-25 10:12] VITALS: BP 90/62; PULSE 68; RESP 16; TEMP 37.2; O2SAT 98
[2023-04-25] MEDS: Iron Sucrose Complex 200 MG in 0.9 % Sodium Chloride 100 ML 440 MG IV (10:33)
== END 2023-04-25 10:10 | disposition home or self-care (01) ==
LOC: HO.MDS 10:09
PROVIDERS: Visit Provider Internal Medicine
DX: D50.9 Iron deficiency anemia, unspecified (principal)
CPT/HCPCS: 96365; J1642; J1756

== ENCOUNTER 2023-05-23 | Outpatient (REF) | payer OTHER, SELFPAY | END 2023-05-23 00:01 | disposition home or self-care (01) | LOC: CF | PROVIDERS: PCP Internal Medicine; Visit Provider Internal Medicine | DX: K74.4 Secondary biliary cirrhosis (principal); D50.0 Iron deficiency anemia secondary to blood loss (chronic) | CPT/HCPCS: 99212 ==

== ENCOUNTER 2023-05-23 09:05 | Outpatient (AMB) | payer OTHER, SELFPAY ==
--- NOTE | 2023-05-23 09:07 | MHC.OFFVIS ---
Intake Vital Signs 05/23/23 09:09 Height 5 ft 4 in Weight 150 lb BMI 25.7 BP 120/63 Blood Pressure Location Lt brachial Position Sitting Pulse 75 Intake Visit Reasons: discuss n/v Intake Note: Beata presents in the office as a visit to discuss N/V/ CC: She states that her glucose was 29 while doing her prep she ended up passed out in her apartment. She states that she is unable to go that long without eating. She states there must be another way. Allergies ciprofloxacin [Cipro] Allergy (Unknown, Verified 05/23/23 09:11) swelling of the throat , hives nitrofurantoin [From Macrobid] Adverse Reaction (Verified 05/23/23 09:11) Liver cirrhosis decompensation HPI HPI Comments History of Present Illness Details This is a 51y.o female with past medical history of HCV (s/p SVR 2014) that led to liver cirrhosis, complicated by portal hypertension with ascites, small bowel Crohn's disease dx in 1994 (s/p ileocecectomy 1994, partial small bowel resection 1996, small bowel stricturoplasty 1998) currently not on any meds, who presents to our office for follow up. 05/10/22: Referred by Dr Ortiz for ERNA. Prev pt of Dr Bryant. Main complaints today are fatigue, loss of energy, hair loss. To recap, pt had hx of Hep C contracted through [facility]. Underwent treatment with Sovaldi and Ribavirin x 2014 (Dr Waterman, [facility]) with reported SVR. She is unable to recall when she was diagnosed with cirrhosis but tells me that she had been seeing Dr Bryant for it x many years. Documentation from 2020 reports ascites on imaging and pt was started on aldactone 50 however she does not remember being on any meds. Last imaging: last ultrasound and CT 04/2021: Ascites. Cirrhotic liver. Last endoscopy: Per pt done in 2019 for crohns, and variceal screening and was overall normal. No records available. In terms of her worsening anemia, initially had a drop in counts in April 2021 when she admitted for E coli sepsis and C Diff and at that time attributed to inflammatory anemia. Since then has been seeing [employer] as outpatient. Started on IV infusions but with less than expected response. Then Hb dropped again to 6.8-7 earlier this year. Pt reports no gastrointestinal complaints to include abd pain, N,V, D. No blood in stool or melena. No changes in appetite. Does not report unintentional weight loss. Pt also has hx of Crohns as above however reports endoscopic remission since her bowel surgeries in as above. Has not taken any meds for it. Last flare requiring pred was . Fam hx: mother and mat aunt: Crohns. Grandfather: etOH related cirrhosis. Correspondence: On 05/27/22 @ 09:06 Romana Garcia Wrote To David Ortiz (2) Mandy Could we pls look into why the pt canceled her procedures? These were booked as urgent due to anemia and cirrhosis. Kindly rebook at the earliest, can be with any provider with availability. And pls educate the pt on importance to keep the appt. CC: PCP as an FYI. 08/06/22: Admission to the hospital on 07/28 for nausea, vomiting and shortness of breath, was found to have large right-sided pleural effusion for which she had thoracostomy tube placement. She received pain medication following which she became very lethargic and had an aspiration event. She was subsequently intubated and then transferred to [facility] due to lack of ICU bed at [facility] or nearby hospitals. At age 2 cc, she was managed for aspiration pneumonia as well as pleural effusion. Chest tube was removed 07/30. Pleural effusion suggestive of hepatic hydrothorax. Once she was extubated and was on 3 L O2, she was transferred to regular floor, however she then left AMA on 08/01. Today, scheduled for a video visit. Reports worsening of shortness of breath over the last 2 days, has also noticed decrease in urine output in the same time. No nausea, vomiting, diarrhea. No chest pain or abdominal pain. She does report taking furosemide 40 mg daily. 08/18/22: Presenting for in person follow up after another ER visit 08/09/22. Went in for concern of decreased urine output. Was found to have normal kidney function but worsening R sided pleural effusion. Does not appear pt underwent thoracentesis or adjustment in her diuretics at that time. Today, coming in with her mom. Pt seated in a wheelchair. Describes compliance with furosemide 40 and low salt diet. Postponed her EGD/colo (initially scheduled for 08/12/22) as wasnt sure if she should be drinking golytely prep. Pt and mom have questions re shunt or drain placement for pleural effusion. 09/17/22: Reports feeling much better in terms of her abd distention and shortness of breath since increasing diuretics from last visit. Has been able to return to work due to better energy levels. Does report intolerance with Spironolactone - gets severe abd pain and nausea with Darrell. Did discontinue it for a few days but got same symptoms on rechallenge. Has icnreased lasix to 80 therefore, instead of 60, as she is not taking spirinolactone. Reports tried to reach our office for further instructions on CXR but could not get through - no correspondence in chart re her phone call however. 10/26/22-11/04/22: Hospitalised for worsening anemia noted on labs done pre-procedure to port placement. 10/27/22 EGD/colo: 1. Esophageal varices (banding) 2. Portal hypertensive gastropathy 3. Normal duodenum 4. Poor prep 5. No active bleeding 6. Internal and external hemorrhoids Path: A. Duodenum, biopsy: Duodenal mucosa within normal limits; preserved villous architecture and no increased intraepithelial lymphocytes seen. B. Stomach, random, biopsy: Gastric antral and body mucosa within normal limits; negative for Helicobacter pylori, intestinal metaplasia and dysplasia. 11/15/22: Doing much better in terms of breathing. Has better energy levels. Able to cont work although taking frequent breaks for bathroom since she is on diuretics is cumbersome. Although didnt report this when she was hospitalised, pt does tell me today tjat she was frequently skipping diuretics to avoid going to the bathroom frequently and was most likely reason for rapid reaccumulation of volume overload. Currently reports good adherence to all meds as below. Furosemide 80mg/day Spironolactone 150mg/day Lactulose titrated to 2-3 BMs Carvedilol 3.125 BID (metoprolol has been discontinued) EGD and colo results reviewed that was performed in house. Pt is aware that due to poor prep, will need a repeat colo within a year. We also discussed initiating referral to [facility] for transplant evaluation which the pt is agreeable to today. She also has a port and has [facility] services which we can utilise for blood draws and diuretic monitoring. 12/13/22: Seen in office for follow up. Diuretics were adjusted after last visit due to bump in Cr noted to 1.3 from 0.9. Currently on: Furosemide 60mg/day Spironolactone 150mg/day Lactulose titrated to 2-3 BMs Carvedilol 3.125 BID Reports increase in abd girth as well as shortness of breath on moderate activity. Still able to cont day to day function but notices this was not present when she was on previous dose. Labs reviewed from today - Cr up to 1.3 again despite a lower dose of diuretics from before. Reports good compliance with salt discretion which is evidences by urine lytes as well. [facility] referral was sent out 4 weeks ago but pt is yet to hear back. Echo still pending. 02/25/23: Was seen in the interim Dr Redmond, reported borderline pressures at that time and diuretics were adjusted. Was also restarted on PO iron supplements for ERNA. 03/30/23: Here for follow up. Feeling much better than the last time she was seen. Main CC is hairfall. Otherwise from liver standpoint reports no abd pain, no abd distention, rash or fatigue. 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 Also established at [facility] and undergoing work up for transplant evaluation but reports was told has low MELD and will likely not need to be listed. Pt has not gotten Boost yet - will follow up. Otherwise weight curve reassuringly stable. Current meds: Furosemide 40mg/day Spironolactone 100mg/day Lactulose discontinued earlier this month by [facility] Carvedilol 6.25 BID Ferrous sulphate 325 mg PO daily 05/23/23: Was sg for EGD/colo on 05/02 however while pt was prepping for colo she developed severe hypoglycemia down to 29mcg/dl and passed out because of it. The neighbour who lives downstairs heard her fall and got help. Since then has been given Glucagon nasal powder. Pt reports has been getting low blood sugars in the 40-60s intermittently since Fall of 2022. Has not seen by Endocrine recently. Was seeing [facility] Endo for hypothyroidism but lost to follow up. Of note - from [facility] as part of workup for liver transplant evaluation, was recommended to get pap smear and mammo. Was seeing [facility] PLAN REP and was sg for pap smear in 2019 but seems did not make the appt. 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 Other Mental health disorder Substance use disorder Social History Household Members: None Housing: Apartment Are you a primary career transition specialist to a significant other at home: No Do you presently have visiting nurse or other home services: No Alcohol intake: never Patient Tobacco Use Status: Current everyday Tobacco user Tobacco use type: Cigarette Cigarettes Per Day: 4 Years Smoked: 17 years old e-Cigarette/Vaping Use: Never Used service: No Current occupational status: employed Cognitive needs: No Hearing needs: No Vision needs: No Review of Systems Const All systems reviewed & are unremarkable except as noted in HPI and below Physical Exam Vital Signs: Last Vital Signs Pulse 75 05/23/23 09:09 BP 120/63 05/23/23 09:09 BMI result Body Mass Index 25.7 No acute distress No icterus No overt respiratory distress Abdomen soft, nontender, nondistended No asterixis Assessment & Plan Assessment & Plan (1) Liver cirrhosis: Code(s): K74.60 - Unspecified cirrhosis of liver Qualifiers: Hepatic cirrhosis type: secondary biliary cirrhosis Qualified Code(s): K74.4 - Secondary biliary cirrhosis (2) Iron deficiency anemia: Code(s): D50.9 - Iron deficiency anemia, unspecified Qualifiers: Iron deficiency anemia type: chronic blood loss Qualified Code(s): D50.0 - Iron deficiency anemia secondary to blood loss (chronic) (3) Crohn's disease: Code(s): K50.90 - Crohn's disease, unspecified, without complications Qualifiers: Digestive disease complication type: without complication Gastrointestinal tract location: large intestine Qualified Code(s): K50.10 - Crohn's disease of large intestine without complications (4) Sarcopenia: Code(s): M62.84 - Sarcopenia (5) Cervical cancer screening: Code(s): Z12.4 - Encounter for screening for malignant neoplasm of cervix (6) Breast cancer screening by mammogram: Code(s): Z12.31 - Encounter for screening mammogram for malignant neoplasm of breast (7) Hypoglycemia: Code(s): E16.2 - Hypoglycemia, unspecified Plan 1. Decomp cirrhosis: - Likely secondary to HCV (treated) + VIDES - Meld sodium 19 - evidence of recompensation: ascites, hepatic hydrothorax and HE have resolved. Resolution of pleural effusion based on chest x-ray 04/14/2023. Patient remains on spironolactone 100 only, and has not had any significant weight gain by dropping furosemide. Breathing is comfortable. No evidence of encephalopathy on exam today. Patient has been off lactulose. Plan: - Cont spironolactone 100. - had blood work done through [facility] last week, will request records and update MELD score - HCC screening - due. From [facility] note, prefer triple phased CT, although unclear if will be ordered through [facility] or at [facility]. Patient has appointment at [facility] tomorrow and will clarify. - Cont Carvedilol 6.25 BID for primary variceal bleeding prophylaxis. - No evidence of HE on assessment today. Cont to HOLD lactulose for now. - Pt not on protein supplement shakes - will send msg to affirmative action officer to follow up 2. Recurrent hypoglycemia: Has been having frequent symptomatic episodes since at least last fall. From chart review, does not appear that patient has seen Endocrinology at. Patient unsure if still establish at [facility], as was last seen in 2023 hypothyroidism. Plan: -referral placed to [facility] Endocrinology -patient already has intranasal glucagon for rescue therapy 3. ERNA: Was scheduled for EGD/colo last month, but due to severe hypoglycemia, was not able to proceed with this. This will be rebooked, after patient has been seen by mri specialist and has had workup done as patient quite hesitant to be NPO at home. Plan: - EGD/colo to be rebooked after pt seen by endocrine 4. Breast ca screening: - Mammo ordered - Msg sent to pcp to take over future screenings 5. 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
[2023-05-23 09:09] VITALS: BP 120/63; PULSE 75; BMI 25.7
== END 2023-05-23 09:50 | disposition home or self-care (01) ==
PROVIDERS: PCP Internal Medicine; Visit Provider Internal Medicine
DX: K74.4 Secondary biliary cirrhosis (principal); D50.0 Iron deficiency anemia secondary to blood loss (chronic); K50.10 Crohn's disease of large intestine without complications; M62.84 Sarcopenia; E16.2 Hypoglycemia, unspecified
CPT/HCPCS: 99214

== ENCOUNTER 2023-06-02 09:58 | Emergency (ER) | payer OTHER, SELFPAY ==
--- NOTE | ~2023-06-02 | XR_ITS ---
EXAMINATION: XR CHEST CLINICAL INFORMATION: Dyspnea, liver failure COMPARISON: Chest 04/14/2023 TECHNIQUE: 2 views of the chest were obtained. FINDINGS: The tip of a left Port-A-Cath is in the right atrium. The lungs are well expanded. Focal scar or atelectasis is again seen in the right upper lobe. No focal consolidation, interstitial pulmonary edema or pneumothorax. No pleural effusion. The cardiomediastinal sweat is within normal limits. No acute osseous abnormality. XR/XR chest 2V IMPRESSION: No acute abnormality.
--- NOTE | ~2023-06-02 | CT_ITS ---
EXAMINATION: CT ABDOMEN AND PELVIS WITHOUT CONTRAST CLINICAL INFORMATION: Right flank pain and CVA percussion tenderness COMPARISON: Previous CTA of the abdomen and pelvis October 2022 TECHNIQUE: Multidetector volumetric imaging was performed from the superior aspect of the liver through the pubic symphysis. Sagittal and coronal reformatted images were obtained on the technologist's workstation. This CT examination was performed using dose optimization techniques as appropriate, variously including the following: *Automated exposure control *Adjustment of mA and/or kV according to patient size (this includes techniques or standardized protocols for targeted exams where dose is matched to indication/reason for exam; i.e. extremities or head) *Use of iterative reconstruction technique DLP: 607 mGy-cm FINDINGS: LUNG BASES: Small right pleural effusion. LIVER, GALLBLADDER, AND BILIARY TREE: Cirrhotic appearing liver. No focal liver lesion. Normal size gallbladder. There is gallbladder wall thickening. This may be reactive secondary to liver disease. No biliary duct dilatation. The main portal vein is enlarged. Varices. Moderate amount of ascites. Findings suggestive of portal hypertension. PANCREAS: Unremarkable. SPLEEN: Very enlarged spleen measuring 18 cm in length. ADRENAL GLANDS: Unremarkable. KIDNEYS AND URETERS: The kidneys are normal in size, shape, and attenuation. Small bilateral nonobstructing lower pole renal stones. No hydronephrosis, ureteral dilatation or ureteral stone seen. BLADDER: Unremarkable. GASTROINTESTINAL TRACT: Question mild wall thickening of the distal colon. This may be related to liver disease. Small and large bowel otherwise normal. Appendix not seen. ABDOMINAL WALL: Evidence of right ventral hernia repair with mesh. Small bulge along the right lateral margin of the mesh. Small umbilical hernia containing fat. Diffuse subcutaneous edema or anasarca. LYMPH NODES: Normal. VASCULAR: Multiple varices. PELVIC VISCERA: Unremarkable. OSSEOUS STRUCTURES: Probable mild bilateral femoral head AVN. CT/CT abdomen pelvis wo IV con IMPRESSION: Small nonobstructing bilateral renal stones. Cirrhosis, splenomegaly, ascites and varices. Gallbladder wall thickening and areas of wall thickening of the colon. This may be related to liver disease. Fleischner guidelines were followed.
[2023-06-02 10:00] VITALS: BP 125/49; PULSE 73; RESP 18; TEMP 37.1; O2SAT 100; BMI 29.4
--- NOTE | 2023-06-02 14:38 | ED_ITS ---
HPI - General Adult General Chief complaint: General Medical Stated complaint: legs feet abd swelling Time Seen by Provider: 06/02/23 15:54 History of Present Illness HPI narrative: The patient is a 52-year-old woman with a history of liver cirrhosis who says that she is on the transplant list at [facility] for a liver transplant. She says that she has been doing very well. She was seen at the clinic at [facility] 9 days ago and had her diuretics cut in half. She has been on furosemide and spironolactone. Since then she has had worsening swelling of her legs and body generally and also a significant weight gain. She now feels short of breath with movement and came to the emergency room because of the symptoms. No fever, sweats, chills. She does have right flank pain that she has had for about 3 days and is getting worse she says. Related Data Home Medications ?Medication ?Instructions ?Recorded ?Confirmed methadone 10 mg/mL oral concentrate 76 mg PO DAILY 05/04/21 03/30/23 multivitamin 1 tab PO DAILY 07/28/22 03/30/23 fluticasone propionate 50 1 spray intranasal DAILY PRN 10/26/22 03/30/23 mcg/actuation nasal Allergy Symptoms spray,suspension (Flonase Allergy Relief) glucagon 3 mg/actuation nasal mg intranasal 05/23/23 spray (Baqsimi) vitamin A 3,000 mcg (10,000 unit) 1 cap PO DAILY 05/23/23 capsule Previous Rx's ?Medication ?Instructions ?Recorded albuterol sulfate 90 mcg/actuation 2 puff inhalation Q4-6H PRN 11/05/22 aerosol inhaler shortness of breath or wheezing #1 ea ferrous sulfate 324 mg (65 mg 324 mg PO DAILY 90 days #90 tabs 02/17/23 iron) tablet,delayed release furosemide 20 mg tablet 40 mg PO BID 90 days #360 tabs 02/17/23 ondansetron 4 mg disintegrating 4 mg PO Q8H PRN nausea and 02/17/23 tablet vomiting 30 days #10 tabs spironolactone 50 mg tablet 50 mg PO BID 90 days #180 tabs 02/17/23 (Aldactone) levothyroxine 50 mcg tablet 50 mcg PO DAILY@0600 #90 tabs 02/25/23 omeprazole 20 mg capsule,delayed 20 mg PO BEDTIME #90 caps 03/30/23 release food supplemt, lactose-reduced 1 ea PO .BID 30 days #14,220 mL 05/23/23 0.06 gram-1.5 kcal/mL oral liquid (Boost Plus) acyclovir 400 mg tablet 400 mg PO BEDTIME #90 tabs 05/24/23 carvedilol 6.25 mg tablet 6.25 mg PO BID 90 days #180 tabs 05/27/23 potassium chloride 20 mEq 40 meq (2 x 20 mEq) PO BID 10 days 06/02/23 tablet,extended release #40 tabs Allergies Allergy/AdvReac Type Severity Reaction Status Date / Time ciprofloxacin [Cipro] Allergy Unknown swelling Verified 06/02/23 10:05 of the throat , hives nitrofurantoin AdvReac Liver Verified 06/02/23 10:05 [From Macrobid] cirrhosis decompensation Review of Systems 2 Review of Systems: Yes all other systems are reviewed and are negative PMFSH Past Medical History Medical History History of central line-associated bloodstream infection (CLABSI) Liver cirrhosis Acute on chronic anemia Ascites Pancytopenia History of hepatitis C COPD (chronic obstructive pulmonary disease) Hydrothorax Pleural effusion, right Iron deficiency anemia Ascites of liver Hypertension, essential Hypothyroidism Allergic rhinitis Lipid disorder Rosacea Rheumatoid arthritis 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 Other Mental health disorder Substance use disorder Social History Social History Household Members: None Housing: Apartment Are you a primary long term care administrator to a significant other at home: No Do you presently have visiting nurse or other home services: No Alcohol intake: never Patient Tobacco Use Status: Current everyday Tobacco user Tobacco use type: Cigarette Cigarettes Per Day: 4 Years Smoked: 17 years old Smoked in Last 30 Days: No e-Cigarette/Vaping Use: Never Used Use of substances other than those prescribed or required for medical reasons: No Advance Directives: No Advance Directives Information Provided: No service: No Current occupational status: employed Cognitive needs: No Hearing needs: No Vision needs: No Physical Exam ED Vital Signs: Vital Signs - 24 hr 06/02/23 10:00 06/02/23 15:25 06/02/23 17:29 Temperature 98.8 F 98 F 98.3 F Pulse Rate 73 78 66 Respiratory Rate 18 18 18 Blood Pressure 125/49 L 120/54 L 108/70 Pulse Oximetry 100 100 100 Oxygen Delivery Method Room Air Room Air Room Air 06/02/23 19:36 06/02/23 19:38 Temperature 98.1 F Pulse Rate 66 66 Respiratory Rate 16 16 Blood Pressure 117/54 L 117/54 L Pulse Oximetry 100 100 Oxygen Delivery Method Room Air Room Air BMI result Body Mass Index 29.4 Const Other: The patient is awake and alert. She does not seem in acute distress. HENMT Other: Face is symmetrical. Mucous membranes moist. Eyes Other: Equal reactive to light, extraocular movements intact, no scleral icterus Neck Other: Neck is supple, no adenopathy Resp Effort & Inspection: normal respiratory effort Auscultation: clear to auscultation bilaterally Cardio Rate: regular rate Rhythm: regular rhythm Heart sounds: S1 normal heart sound present and S2 normal heart sound present GI Other: There is some right-sided upper abdominal tenderness. Other: There is some right-sided CVA percussion tenderness Skin Other: Skin is pale and dry. The skin is edematous in the lower legs Neuro Other: Awake and alert and seems to have a normal mental status. Cranial nerves are intact. Moves extremities symmetrically. Grossly intact neurological exam Extrem Other: The patient has fairly thick edema of both lower legs. Course Course Course Narrative: This is an RME: Additional HPI, ROS, PE not included below will be deferred to primary provider. 52 yo f hx of liver transplant presents for full body swelling, fatigue, malaise, myalgias X few days. Looks uncomfortable Charge will be informed by triage provider. Medications Administered Discontinued Medications Generic Name Dose Route Start Last Admin Trade Name Freq PRN Reason Stop Dose Admin Heparin Sodium (Porcine) 500 0 unit 06/02/23 19:32 06/02/23 19:33 unit/ Sodium Chloride 5 ml IVFLUSH 06/02/23 19:33 500 unit ONCE ONE Administration Magnesium Sulfate 2 gm in 50 mls @ 150 mls/hr 06/02/23 17:14 06/02/23 19:20 Magnesium Sulfate/H2o IV 06/02/23 17:33 Infused ONCE ONE Infusion Morphine Sulfate 4 mg 06/02/23 16:34 06/02/23 16:40 Morphine Sulfate 4 Mg/Ml Cartridge IVPUSH 06/02/23 16:35 4 mg ONCE ONE Administration Protocol Potassium Chloride 40 meq 06/02/23 17:14 06/02/23 17:25 Potassium Chloride Er 20 Meq Tab.Er.Prt PO 06/02/23 17:15 40 meq ONCE ONE Administration Medical Decision Making Medical Decision Making [facility] Narrative: The patient is a 52-year-old woman with a history of cirrhosis 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 She comes to the emergency room with a significant weight gain. Nine days ago she was advised to trial reducing her diuretics. This was done because she had been doing very well. She says her furosemide and her spironolactone were both cut in half. Since changing her diuretics she has put on possibly as much as 15-20 lb. She was very worried that she might have a recurrent pleural effusion. She says that she has had thoracentesis in the past because she has accumulated fluid in her pleural spaces (she has had no paracentesis because she has not had large volume intra-abdominal ascites). The patient's chest x-ray today shows no sign of pleural fluid at all. The patient's vital signs are stable. I had ordered a D-dimer given her complaint of shortness of breath. Her D-dimer is mildly abnormal. When I spoke to the patient about this and told her that there was no pleural fluid or need for thoracentesis she recanted her complaint of shortness of breath and said that she was really probably more anxious about needing another thoracentesis than actually feeling short of breath. She says that as soon as I told her that she did not need a thoracentesis she no longer felt short of breath. I therefore do not feel that the slightly abnormal D-dimer should be pursued with a CT pulmonary angiogram. I had ordered a CT of the abdomen and pelvis because of a complaint of right flank pain for which he requested pain medication. The CT of the abdomen and pelvis shows a lot of tissue edema in the subcutaneous fat and elsewhere but shows no large volume ascites. It shows no kidney stones. It shows no other definite acute pathology. The patient is labs show a potassium of 2.8. She is anemic with a hemoglobin of 7.8, she is leukopenic with a white count of 1.9, and thrombocytopenic with a platelet count of 41. Renal function is stable. The patient was hemodynamically stable. She was intensely relieved when told she would not require a thoracentesis and almost immediately said that she wanted to go home. Her most concerning finding on her workup was her potassium of 2.8. She was given oral potassium here as well as IV magnesium. She will be discharged with a prescription for supplemental potassium. She has a scheduled appointment next week at which I expect she should be able to get her labs rechecked. Lab Data 06/02/23 16:29 06/02/23 16:29 Labs: Lab Results 06/02/23 06/02/23 Range/Units 16:29 18:13 WBC 1.9 L (4.8-10.8) X10*3/uL RBC 2.48 L (4.20-5.50) X10*6/uL Hgb 7.8 L (12.0-16.0) g/dl Hct 24.3 L (37.0-47.0) % MCV 98.0 (80.0-98.0) fL MCH 31.5 (27.0-33.0) pg MCHC 32.1 (31.0-35.0) g/dl RDW 15.1 (11.0-16.0) % Plt Count 41 L D (160-400) X10*3/uL MPV 12.2 (9.4-12.3) fL Immature Gran % (Auto) 0.0 (0.0-0.4) % Neut % (Auto) 65.0 (45-73) % Lymph % (Auto) 20.4 (20-40) % Long % (Auto) 13.1 H (2-11) % Eos % (Auto) 1.0 (0-4) % Baso % (Auto) 0.5 (0-2) % Lymph # (Auto) 0.4 L (1.2-4.9) X10*3/uL Long # (Auto) 0.3 (0.1-1.2) X10*3/uL Eos # (Auto) 0.0 (0.0-0.4) X10*3/uL Baso # (Auto) 0.0 (0.0-0.2) X10*3/uL Abs Immat Gran (auto) 0.00 (0.00-0.03) X10*3/uL Absolute Neuts (auto) 1.2 L (2.0-8.3) x10*3/uL Absolute Nucleated RBC 0.000 (0.0-0.012) X10*3/uL Nucleated RBC % (auto) 0.0 (0.0-0.2) /100WBC Smear Tech's Comments VERIFIED PT 30.0 H (11.1-13.3) SEC INR 2.5 H (0.9-1.1) D-Dimer High Sensitivty 281 NG/ML Sodium 142 (135-145) mmol/L Potassium 2.8 L* D (3.3-5.1) mmol/L Chloride 106 (96-108) mmol/L Carbon Dioxide 30 H (22-29) mmol/L Anion Gap 9 L (12-20) BUN 11 (9-16) mg/dL Creatinine 1.06 (0.5-1.4) mg/dL Estim Creat Clear Calc 62.6 Estimated GFR 54 Random Glucose 129 H (60-115) mg/dL Calcium 7.9 L (8.4-10.2) mg/dL Magnesium 1.5 L (1.6-2.6) mg/dL Total Bilirubin 0.7 (0.0-1.0) mg/dL Direct Bilirubin 0.4 (0.0-0.5) mg/dL AST 21 (5-31) U/L ALT 10 (0-31) U/L Alkaline Phosphatase 84 (39-117) U/L Ammonia 75 H (13-55) umol/L C-Reactive Protein 2.91 H (< or = 0.50) mg/dL B-Natriuretic Peptide 451 H (<100) pg/mL Total Protein 5.6 L (6.5-8.0) g/dL Albumin 2.5 L (3.5-5.0) g/dL Lipase 26 (8-78) U/L Influenza Type A (PCR) NEGATIVE (Negative) Influenza Type B (PCR) NEGATIVE (Negative) RSV RNA Qual (PCR) NEGATIVE (Negative) SARS-CoV-2 RNA (RT-PCR) NEGATIVE (Negative) Discharge Plan Discharge Clinical Impression: Hypokalemia, Anasarca Patient Disposition: Home, Self-Care Additional Instructions: You do not have any fluid drainable from around your lungs today. Additionally you do not have any significant fluid collections your abdomen which are drainable. I think the fluid you are retaining is diffuse in your best by resuming your previous doses of diuretic medications. Therefore please resume the doses of furosemide and spironolactone you were taking before they were reduced last week. Your potassium today was also quite low. I have sent a prescription for additional potassium tablets. Please take this as prescribed 2 times a day. Please keep your appointment next week and make sure you get your electrolytes rechecked. Return to the emergency room if you feel significantly worse Prescriptions: New potassium chloride 20 mEq tablet extended release 40 meq PO BID 10 Days Qty: 40 0RF No Action albuterol sulfate 90 mcg/actuation HFA aerosol inhaler 2 puff inhalation Q4-6H PRN (Reason: shortness of breath or wheezing) Qty: 1 3RF ferrous sulfate 324 mg (65 mg iron) tablet,delayed release (DR/EC) 324 mg PO DAILY 90 Days Qty: 90 1RF furosemide 20 mg tablet 40 mg PO BID 90 Days Qty: 360 1RF Protocol: Hold for SBP< HOLD for SBP < : 90 spironolactone [Aldactone] 50 mg tablet 50 mg PO BID 90 Days Qty: 180 1RF levothyroxine 50 mcg tablet 50 mcg PO DAILY@0600 Qty: 90 1RF Boost Plus 0.06 gram- 1.5 kcal/mL liquid 1 ea PO .BID 30 Days Qty: 79346 2RF acyclovir 400 mg tablet 400 mg PO BEDTIME Qty: 90 0RF carvedilol 6.25 mg tablet 6.25 mg PO BID 90 Days Qty: 180 0RF methadone 10 mg/mL Concentrate 76 mg PO DAILY Rx Instructions: PT REC'D 27 TAKE HOME BOTTLES FROM [employer] ON 10/11/22 multivitamin Tablet 1 tab PO DAILY fluticasone propionate [Flonase Allergy Relief] 50 mcg/actuation spray,suspension 1 spray intranasal DAILY PRN (Reason: Allergy Symptoms) Rx Instructions: administer into each nostril ondansetron 4 mg tablet,disintegrating 4 mg PO Q8H PRN (Reason: nausea and vomiting) 30 Days Qty: 10 1RF omeprazole 20 mg capsule,delayed release(DR/EC) 20 mg PO BEDTIME Qty: 90 0RF Baqsimi 3 mg/actuation spray,non-aerosol intranasal vitamin A 3,000 mcg (10,000 unit) capsule 1 cap PO DAILY Referrals: David Ortiz MD [Primary Care Provider] - (Fluid retention, hypokalemia) Romana Garcia MD [Physician] - (Fluid retention, hypokalemia) Interventions: ED Discharge Assessment Last Done: 06/02/23 19:38 Discharge Date/Time: 06/02/23 19:39 Print Language: Iraqi
[2023-06-02 15:25] VITALS: BP 120/54; PULSE 78; RESP 18; TEMP 36.6; O2SAT 100
[2023-06-02] MEDS: Morphine Sulfate 4 MG/ML CARTRIDGE IVPUSH (16:40)
[2023-06-02 16:42] LABS: Basophils Percent Auto 0.5 % (0-2); Hematocrit 24.3 % (37.0-47.0); Hemoglobin 7.8 g/dl (12.0-16.0); INTERNATIONAL NORM RATIO 2.5 (0.9-1.1); Lymphocytes Absolute Auto 0.4 X10*3/uL (1.2-4.9); Lymphocytes Percent Auto 20.4 % (20-40); MANUAL DIFF FLAG SCAN; Mean Corpuscular HGB Conc 32.1 g/dl (31.0-35.0); Mean Corpuscular Hemoglobin 31.5 pg (27.0-33.0); Mean Platelet Volume 12.2 fL (9.4-12.3); Monocytes Absolute Auto 0.3 X10*3/uL (0.1-1.2); Monocytes Percent Auto 13.1 % (2-11); Neutrophils Absolute Auto 1.2 x10*3/uL (2.0-8.3); Red Blood Count 2.48 X10*6/uL (4.20-5.50); Red Cell Distribution Width 15.1 % (11.0-16.0); SCAN SMEAR FLAG 1
[2023-06-02 16:46] LABS: Ammonia 75 umol/L (13-55)
[2023-06-02 16:52] LABS: Lipase 26 U/L (8-78)
[2023-06-02 16:58] LABS: B Type Natriuretic Peptide 451 pg/mL (<100)
[2023-06-02 17:03] LABS: Alanine Aminotransferase 10 U/L (0-31); Albumin Level 2.5 g/dL (3.5-5.0); Alkaline Phosphatase 84 U/L (39-117); Anion Gap 9 (12-20); Aspartate Amino Transferase 21 U/L (5-31); Bilirubin Direct 0.4 mg/dL (0.0-0.5); Bilirubin Total 0.7 mg/dL (0.0-1.0); Blood Urea Nitrogen 11 mg/dL (9-16); C Reactive Protein 2.91 mg/dL (< or = 0.50); Calcium 7.9 mg/dL (8.4-10.2); Carbon Dioxide 30 mmol/L (22-29); Chloride 106 mmol/L (96-108); Creatinine Clr Calc Pharmacy 62.6; Estimated Glomerular Filt Rate 54; Glucose Random 129 mg/dL (60-115); Magnesium 1.5 mg/dL (1.6-2.6); Potassium 2.8 mmol/L (3.3-5.1); Sodium 142 mmol/L (135-145); Total Protein 5.6 g/dL (6.5-8.0)
[2023-06-02 17:07] LABS: White Blood Count 1.9 X10*3/uL (4.8-10.8)
[2023-06-02 17:08] LABS: Platelet Count 41 X10*3/uL (160-400)
[2023-06-02 17:11] LABS: SLIDE REVIEW VERIFIED
[2023-06-02 17:12] LABS: D Dimer High Sensitivity 281 NG/ML
--- NOTE | 2023-06-02 17:19 | ECG_ITS ---
Test Reason : HYPOKALEMIA Blood Pressure : / mmHG Vent. Rate : 061 BPM Atrial Rate : 061 BPM P-R Int : 152 ms QRS Dur : 124 ms QT Int : 538 ms P-R-T Axes : 045 -01 007 degrees QTc Int : 541 ms Normal sinus rhythm Non-specific intra-ventricular conduction delay Nonspecific T wave abnormality Abnormal ECG When compared with ECG of 09-AUG-2022 11:07, QT has lengthened Referred By: Sagar Brooke Electronically Signed By:DIANA GALLARDO
[2023-06-02] MEDS: Potassium Chloride ER 20 MEQ TAB.ER.PRT 40 MEQ PO (17:25)
[2023-06-02] MEDS: Magnesium Sulfate/H2O 2 GM/50 ML PIGGYBACK IV (17:26)
[2023-06-02 17:29] VITALS: BP 108/70; PULSE 66; RESP 18; TEMP 36.8; O2SAT 100
[2023-06-02 19:03] LABS: Influenza A PCR NEGATIVE (Negative); Influenza B PCR NEGATIVE (Negative); Resp Syncy Virus RNA Qual PCR NEGATIVE (Negative); SARS COV2 PCR INHOUSE NEGATIVE (Negative)
--- NOTE | 2023-06-02 19:09 | PC.NURSE ---
assumed care of the pt at 1900. pt ready for discharge pending completion of magnesium infusion.
[2023-06-02 19:36] VITALS: BP 117/54; PULSE 66; RESP 16; O2SAT 100
[2023-06-02 19:38] VITALS: BP 117/54; PULSE 66; RESP 16; TEMP 36.7; O2SAT 100
== END 2023-06-02 19:39 | disposition home or self-care (01) ==
PROVIDERS: Physician Assistant; Emergency Provider Emergency Medicine; PCP Internal Medicine
DX: E87.6 Hypokalemia (principal); R60.1 Generalized edema; K74.60 Unspecified cirrhosis of liver; B19.20 Unspecified viral hepatitis C without hepatic coma; I10 Essential (primary) hypertension; E13.9 Other specified diabetes mellitus without complications; J44.9 Chronic obstructive pulmonary disease, unspecified; Z79.899 Other long term (current) drug therapy; Z03.818 Encounter for observation for suspected exposure to other biological agents ruled out
CPT/HCPCS: 0241U; 36415; 71046; 74176; 80048; 80076; 82140; 83690; 83735; 83880; 85025; 85379; 85610; 86140; 93005; 96365; 96366; 96375; 99284; 99285; J1642; J2270; J3475

== ENCOUNTER → 2023-06-02 17:19 | Outpatient (BNV) | payer OTHER, SELFPAY | PROVIDERS: Emergency Provider Emergency Medicine; PCP Internal Medicine; Visit Provider Internal Medicine | DX: R94.31 Abnormal electrocardiogram [ECG] [EKG] (principal) | CPT/HCPCS: 93010 ==

== ENCOUNTER 2023-07-15 10:29 | Outpatient (REF) | payer OTHER, SELFPAY ==
[2023-07-15 11:25] LABS: MANUAL DIFF FLAG NO
[2023-07-15 11:28] LABS: Basophils Percent Auto 0.3 % (0-2); Eosinophils Percent Auto 0.6 % (0-4); Hematocrit 28.2 % (37.0-47.0); Hemoglobin 9.1 g/dl (12.0-16.0); Imm Gran Abs Auto 0.01 X10*3/uL (0.00-0.03); Imm Gran Pct Auto 0.3 % (0.0-0.4); Lymphocytes Absolute Auto 0.5 X10*3/uL (1.2-4.9); Mean Corpuscular HGB Conc 32.3 g/dl (31.0-35.0); Mean Corpuscular Volume 99.3 fL (80.0-98.0); Mean Platelet Volume 11.5 fL (9.4-12.3); Monocytes Absolute Auto 0.4 X10*3/uL (0.1-1.2); Monocytes Percent Auto 11.6 % (2-11); Neutrophils Absolute Auto 2.3 x10*3/uL (2.0-8.3); Neutrophils Percent Auto 71.2 % (45-73); Red Blood Count 2.84 X10*6/uL (4.20-5.50); White Blood Count 3.2 X10*3/uL (4.8-10.8)
[2023-07-15 11:30] LABS: Platelet Count 79 X10*3/uL (160-400)
[2023-07-15 11:33] LABS: INTERNATIONAL NORM RATIO 2.4 (0.9-1.1); Prothrombin Time 29.4 SEC (11.1-13.3)
[2023-07-15 11:42] LABS: Alanine Aminotransferase 10 U/L (0-31); Albumin Level 2.9 g/dL (3.5-5.0); Alkaline Phosphatase 83 U/L (39-117); Anion Gap 12 (12-20); Aspartate Amino Transferase 25 U/L (5-31); Bilirubin Total 1.1 mg/dL (0.0-1.0); Blood Urea Nitrogen 20 mg/dL (9-16); Calcium 8.7 mg/dL (8.4-10.2); Carbon Dioxide 30 mmol/L (22-29); Chloride 103 mmol/L (96-108); Estimated Glomerular Filt Rate 30; Glucose Random 163 mg/dL (60-115); Potassium 4.7 mmol/L (3.3-5.1); Sodium 140 mmol/L (135-145); Total Protein 6.2 g/dL (6.5-8.0)
[2023-07-19 13:44] LABS: Alpha Fetoprotein 2.7 ng/mL
== END 2023-07-15 10:30 | disposition home or self-care (01) ==
LOC: HO.LAB 10:29
PROVIDERS: Absent Provider Internal Medicine; PCP Internal Medicine; Visit Provider Internal Medicine
DX: K74.60 Unspecified cirrhosis of liver (principal)
CPT/HCPCS: 36415; 80053; 82105; 85025; 85610

== ENCOUNTER 2023-07-18 11:00 | Outpatient (REF) | payer OTHER, SELFPAY ==
--- NOTE | ~2023-07-18 | MM_ITS ---
EXAMINATION: MM SCREENING DIGITAL BREAST TOMOSYNTHESIS, BILATERAL CLINICAL INFORMATION: Screening. Asymptomatic. COMPARISON: Mammography: This study is compared with prior exams dating back to 2019. TECHNIQUE: Digital breast tomosynthesis is performed in both the craniocaudal and mediolateral oblique views along with computer-aided detection (CAD). Synthesized 2D images are generated from the tomosynthesis. FINDINGS: There are scattered areas of fibroglandular density (ACR BI-RADS breast composition Category b). There are no significant masses, abnormal calcifications, or other abnormalities. There is minor postsurgical change at the medial aspect of the left breast. MM/MM tomosynthesis screening BI IMPRESSION: No mammographic evidence of malignancy. ASSESSMENT: BI-RADS BI-RADS 2 - Benign Findings RECOMMENDATION: Routine annual mammography screening. 1 year F/U This examination should not preclude the clinical evaluation of a suspicious palpable abnormality. This patient's information was entered into a reminder system with a target due date for their next mammogram.
== END 2023-07-18 11:01 | disposition home or self-care (01) ==
LOC: HO.MAMMO 11:00
PROVIDERS: PCP Internal Medicine; Visit Provider Internal Medicine
DX: Z12.31 Encounter for screening mammogram for malignant neoplasm of breast (principal)
CPT/HCPCS: 77063; 77067

== ENCOUNTER → 2023-07-18 11:00 | Outpatient (BNV) | payer OTHER, SELFPAY | PROVIDERS: PCP Internal Medicine; Visit Provider Radiology Diagnostic Radiology | DX: Z12.31 Encounter for screening mammogram for malignant neoplasm of breast (principal) | CPT/HCPCS: 77063; 77067 ==

== ENCOUNTER 2023-07-25 08:55 | Outpatient (REF) | payer OTHER, SELFPAY ==
[2023-07-25 11:19] LABS: Hematocrit 27.4 % (37.0-47.0); Hemoglobin 8.8 g/dl (12.0-16.0); Mean Corpuscular HGB Conc 32.1 g/dl (31.0-35.0); Mean Corpuscular Hemoglobin 31.5 pg (27.0-33.0); Mean Corpuscular Volume 98.2 fL (80.0-98.0); Mean Platelet Volume 11.7 fL (9.4-12.3); Red Blood Count 2.79 X10*6/uL (4.20-5.50); Red Cell Distribution Width 16.2 % (11.0-16.0); White Blood Count 3.6 X10*3/uL (4.8-10.8)
[2023-07-25 11:20] LABS: Platelet Count 65 X10*3/uL (160-400)
[2023-07-25 11:27] LABS: INTERNATIONAL NORM RATIO 2.2 (0.9-1.1)
[2023-07-25 11:37] LABS: Alanine Aminotransferase 11 U/L (0-31); Alkaline Phosphatase 77 U/L (39-117); Anion Gap 16 (12-20); Aspartate Amino Transferase 22 U/L (5-31); Bilirubin Total 1.1 mg/dL (0.0-1.0); Blood Urea Nitrogen 17 mg/dL (9-16); Carbon Dioxide 30 mmol/L (22-29); Chloride 101 mmol/L (96-108); Estimated Glomerular Filt Rate 35; Glucose Random 86 mg/dL (60-115); Iron 69 mcg/dL (30-160); Magnesium 1.8 mg/dL (1.6-2.6); Percent Iron Saturation 21 % (15-50); Sodium 143 mmol/L (135-145); Total Iron Binding Capacity 326 mcg/dL (228-428); Total Protein 6.3 g/dL (6.5-8.0); Unsaturated Iron Binding 257 ug/dL
[2023-07-25 11:51] LABS: Ferritin 16 ng/mL (10-250)
== END 2023-07-25 08:56 | disposition home or self-care (01) ==
LOC: HO.LAB 08:55
PROVIDERS: PCP Internal Medicine; Visit Provider Internal Medicine
DX: K74.4 Secondary biliary cirrhosis (principal); K50.10 Crohn's disease of large intestine without complications; D50.0 Iron deficiency anemia secondary to blood loss (chronic); N17.9 Acute kidney failure, unspecified; M62.84 Sarcopenia
CPT/HCPCS: 36415; 80053; 82728; 83540; 83735; 85027; 85610; 99212

== ENCOUNTER 2023-07-25 08:55 | Outpatient (AMB) | payer OTHER, SELFPAY ==
--- NOTE | 2023-07-25 09:09 | MHC.OFFVIS ---
Vital Signs 07/25/23 09:15 Height 5 ft 4 in Weight 154 lb 5.177 oz BMI 26.5 BP 106/62 Blood Pressure Location Lt brachial Position Sitting Pulse 68 Pulse Source Pulse Oximeter Pulse Oximetry (%) 100 Oxygen Delivery Method Room Air Intake Visit Reasons: Cirrhosis 30 MINS Intake Note: Pt presents in office today for a scheduled FUV. CC; Pt is here today to discuss the results of their recent lab work (blood work [facility]). Pt states that they are worried about their creatinine levels. Pt denies any additional concerns or sx at this time. Career Consultant Required: No Allergies ciprofloxacin [Cipro] Allergy (Unknown, Verified 07/25/23 09:13) swelling of the throat , hives nitrofurantoin [From Macrobid] Adverse Reaction (Verified 07/25/23 09:13) Liver cirrhosis decompensation HPI Comments Details: This is a 51y.o female with past medical history of HCV (s/p SVR 2014) that led to liver cirrhosis, complicated by portal hypertension with ascites, small bowel Crohn's disease dx in 1994 (s/p ileocecectomy 1994, partial small bowel resection 1996, small bowel stricturoplasty 1998) currently not on any meds, who presents to our office for follow up. 05/10/22: Referred by Dr Ortiz for ERNA. Prev pt of Dr Bryant. Main complaints today are fatigue, loss of energy, hair loss. To recap, pt had hx of Hep C contracted through IVDU. Underwent treatment with Sovaldi and Ribavirin x 2014 (Dr Waterman, [facility]) with reported SVR. She is unable to recall when she was diagnosed with cirrhosis but tells me that she had been seeing Dr Bryant for it x many years. Documentation from 2020 reports ascites on imaging and pt was started on aldactone 50 however she does not remember being on any meds. Last imaging: last ultrasound and CT 04/2021: Ascites. Cirrhotic liver. Last endoscopy: Per pt done in 2019 for crohns, and variceal screening and was overall normal. No records available. In terms of her worsening anemia, initially had a drop in counts in April 2021 when she admitted for E coli sepsis and C Diff and at that time attributed to inflammatory anemia. Since then has been seeing Mechanical Systems Design Engineer as outpatient. Started on IV infusions but with less than expected response. Then Hb dropped again to 6.8-7 earlier this year. Pt reports no gastrointestinal complaints to include abd pain, N,V, D. No blood in stool or melena. No changes in appetite. Does not report unintentional weight loss. Pt also has hx of Crohns as above however reports endoscopic remission since her bowel surgeries in as above. Has not taken any meds for it. Last flare requiring pred was . Fam hx: mother and mat aunt: Crohns. Grandfather: etOH related cirrhosis. Correspondence: On 05/27/22 @ 09:06 Romana Garcia Wrote To David Ortiz (2) Mandy Could we pls look into why the pt canceled her procedures? These were booked as urgent due to anemia and cirrhosis. Kindly rebook at the earliest, can be with any provider with availability. And pls educate the pt on importance to keep the appt. CC: PCP as an FYI. 08/06/22: Admission to the hospital on 07/28 for nausea, vomiting and shortness of breath, was found to have large right-sided pleural effusion for which she had thoracostomy tube placement. She received pain medication following which she became very lethargic and had an aspiration event. She was subsequently intubated and then transferred to [facility] due to lack of ICU bed at [facility] or nearby hospitals. At age 2 cc, she was managed for aspiration pneumonia as well as pleural effusion. Chest tube was removed 07/30. Pleural effusion suggestive of hepatic hydrothorax. Once she was extubated and was on 3 L O2, she was transferred to regular floor, however she then left AMA on 08/01. Today, scheduled for a video visit. Reports worsening of shortness of breath over the last 2 days, has also noticed decrease in urine output in the same time. No nausea, vomiting, diarrhea. No chest pain or abdominal pain. She does report taking furosemide 40 mg daily. 08/18/22: Presenting for in person follow up after another ER visit 08/09/22. Went in for concern of decreased urine output. Was found to have normal kidney function but worsening R sided pleural effusion. Does not appear pt underwent thoracentesis or adjustment in her diuretics at that time. Today, coming in with her mom. Pt seated in a wheelchair. Describes compliance with furosemide 40 and low salt diet. Postponed her EGD/colo (initially scheduled for 08/12/22) as wasnt sure if she should be drinking golytely prep. Pt and mom have questions re shunt or drain placement for pleural effusion. 09/17/22: Reports feeling much better in terms of her abd distention and shortness of breath since increasing diuretics from last visit. Has been able to return to work due to better energy levels. Does report intolerance with Spironolactone - gets severe abd pain and nausea with Argyle. Did discontinue it for a few days but got same symptoms on rechallenge. Has icnreased lasix to 80 therefore, instead of 60, as she is not taking spirinolactone. Reports tried to reach our office for further instructions on CXR but could not get through - no correspondence in chart re her phone call however. 10/26/22-11/04/22: Hospitalised for worsening anemia noted on labs done pre-procedure to port placement. 10/27/22 EGD/colo: 1. Esophageal varices (banding) 2. Portal hypertensive gastropathy 3. Normal duodenum 4. Poor prep 5. No active bleeding 6. Internal and external hemorrhoids Path: A. Duodenum, biopsy: Duodenal mucosa within normal limits; preserved villous architecture and no increased intraepithelial lymphocytes seen. B. Stomach, random, biopsy: Gastric antral and body mucosa within normal limits; negative for Helicobacter pylori, intestinal metaplasia and dysplasia. 11/15/22: Doing much better in terms of breathing. Has better energy levels. Able to cont work although taking frequent breaks for bathroom since she is on diuretics is cumbersome. Although didnt report this when she was hospitalised, pt does tell me today tjat she was frequently skipping diuretics to avoid going to the bathroom frequently and was most likely reason for rapid reaccumulation of volume overload. Currently reports good adherence to all meds as below. Furosemide 80mg/day Spironolactone 150mg/day Lactulose titrated to 2-3 BMs Carvedilol 3.125 BID (metoprolol has been discontinued) EGD and colo results reviewed that was performed in house. Pt is aware that due to poor prep, will need a repeat colo within a year. We also discussed initiating referral to [facility] for transplant evaluation which the pt is agreeable to today. She also has a port and has VNA services which we can utilise for blood draws and diuretic monitoring. 12/13/22: Seen in office for follow up. Diuretics were adjusted after last visit due to bump in Cr noted to 1.3 from 0.9. Currently on: Furosemide 60mg/day Spironolactone 150mg/day Lactulose titrated to 2-3 BMs Carvedilol 3.125 BID Reports increase in abd girth as well as shortness of breath on moderate activity. Still able to cont day to day function but notices this was not present when she was on previous dose. Labs reviewed from today - Cr up to 1.3 again despite a lower dose of diuretics from before. Reports good compliance with salt discretion which is evidences by urine lytes as well. [facility] referral was sent out 4 weeks ago but pt is yet to hear back. Echo still pending. 02/25/23: Was seen in the interim Dr Redmond, reported borderline pressures at that time and diuretics were adjusted. Was also restarted on PO iron supplements for ERNA. 03/30/23: Here for follow up. Feeling much better than the last time she was seen. Main CC is hairfall. Otherwise from liver standpoint reports no abd pain, no abd distention, rash or fatigue. 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 Also established at [facility] and undergoing work up for transplant evaluation but reports was told has low MELD and will likely not need to be listed. Pt has not gotten Boost yet - will follow up. Otherwise weight curve reassuringly stable. Current meds: Furosemide 40mg/day Spironolactone 100mg/day Lactulose discontinued earlier this month by [facility] Carvedilol 6.25 BID Ferrous sulphate 325 mg PO daily 05/23/23: Was sg for EGD/colo on 05/02 however while pt was prepping for colo she developed severe hypoglycemia down to 29mcg/dl and passed out because of it. The neighbour who lives downstairs heard her fall and got help. Since then has been given Glucagon nasal powder. Pt reports has been getting low blood sugars in the 40-60s intermittently since fall. Has not seen by Endocrine recently. Was seeing [facility] Endo for hypothyroidism but lost to follow up. Of note - from [facility] as part of workup for liver transplant evaluation, was recommended to get pap smear and mammo. Was seeing [facility] STAFFING RN and was sg for pap smear in 2019 but seems did not make the appt. Current meds: Spironolactone 100mg/day Carvedilol 6.25 BID 07/25/23: Had blood work done on 07/[address] Jessie Mackenzie from [facility]. Cr shot up to 1.78. Was advised to cut down both diuretics to Lasix 20 BID Argyle 50 once daily ?? Med list a bit unclear as based on prev visit she was not on any lasix but when she went to ER on 06/01 was documented to be on lasix 20 BID which was then increased further to 40 BID by the ER provider due to significant edema. Suspect RHINA on 07/14 likely 2/2 overuse of lasix. Currently reports extreme exhaustion for the past 2 weeks. Feels thirsty all the time despite reduction in diuretics. Has also been noticing increased swelling in R sided abd. Also reports itching on legs. They also feel crampy and restless amna at night time. CT abd on 07/31 - appt with [facility] August. 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 Other Mental health disorder Substance use disorder Social History Household Members: None Housing: Apartment Are you a primary health care marketing manager to a significant other at home: No Do you presently have visiting nurse or other home services: No Alcohol intake: never Patient Tobacco Use Status: Current everyday Tobacco user Tobacco use type: Cigarette Cigarettes Per Day: 4 Years Smoked: 17 years old e-Cigarette/Vaping Use: Never Used Use of substances other than those prescribed or required for medical reasons: No Have you been hit, kicked, punched, or otherwise hurt by someone within the past year? If so, by whom?: No Do you feel safe in your current relationship?: No Current Relationship Do you have thoughts of harming others: None Do you have a plan to hurt others: No Plan Do you have the means to hurt others: No Recently lost weight without trying: No service: No Current occupational status: employed Cognitive needs: No Hearing needs: No Vision needs: No Review of Systems Const All systems reviewed & are unremarkable except as noted in HPI and below Physical Exam Vital Signs: Last Vital Signs Pulse 68 07/25/23 09:15 BP 106/62 07/25/23 09:15 Pulse Ox 100 07/25/23 09:15 Oxygen Delivery Method Room Air 07/25/23 09:15 BMI result Body Mass Index 26.5 No acute distress No icterus No overt respiratory distress Abdomen soft, nontender, nondistended No asterixis Assessment & Plan Assessment & Plan (1) RHINA (acute kidney injury): Code(s): N17.9 - Acute kidney failure, unspecified Category: Medical (2) Liver cirrhosis: Code(s): K74.60 - Unspecified cirrhosis of liver Category: Medical Qualifiers: Hepatic cirrhosis type: secondary biliary cirrhosis Qualified Code(s): K74.4 - Secondary biliary cirrhosis (3) Iron deficiency anemia: Code(s): D50.9 - Iron deficiency anemia, unspecified Category: Medical Qualifiers: Iron deficiency anemia type: chronic blood loss Qualified Code(s): D50.0 - Iron deficiency anemia secondary to blood loss (chronic) (4) Crohn's disease: Code(s): K50.90 - Crohn's disease, unspecified, without complications Category: Medical Qualifiers: Digestive disease complication type: without complication Gastrointestinal tract location: large intestine Qualified Code(s): K50.10 - Crohn's disease of large intestine without complications (5) Sarcopenia: Code(s): M62.84 - Sarcopenia Category: Medical Plan 1. Decomp cirrhosis: - Likely secondary to HCV (treated) + VIDES - Meld sodium 19 - ascites and covert HE On assessment today evidence of covert HE - unable to tolerate lactulose so will try for rifaximin. Ascites is back as well. Weight up by 9 lbs - dry weight is around 145#. For RHINA - due for repeat labs, will request Heme RN to draw from port today as opposed to at the end of this week amna as pt also slotted for triple phased CT next week. Plan: - Lasix 20 BID and florence 50 mg as reported by pt - she is aware that this will most likely be adjusted based on updated BMP - CBC, CMP to be checked today - As reporting leg cramping will also recheck iron studies as well as divalents - HCC screening - due. triple phased CT booked for 07/31 at [facility]. - Cont Carvedilol 6.25 BID for primary variceal bleeding prophylaxis. - Rifaximin 550 BID sent to pharmacy for HE - covert/mild based on assessment today - Ensure shakes approved through insurance and started by pt 3. ERNA: Was scheduled for EGD/colo April 2023, but due to severe hypoglycemia, was not able to proceed with this. This will be rebooked, after patient has been seen by casing man and has had workup done as patient quite hesitant to be NPO at home. Plan: - EGD/colo to be rebooked after pt seen by endocrine - Msg sent to RN to follow up on status of endocrine referral (sent to [facility]) Follow up 3 months Orders: Orders Comprehensive Met. Panel Today K74.4 - Secondary biliary cirrhosis Calcium Today K74.4 - Secondary biliary cirrhosis Magnesium Today K74.4 - Secondary biliary cirrhosis Ferritin Today K74.4 - Secondary biliary cirrhosis IRON PROFILE Today K74.4 - Secondary biliary cirrhosis Complete Blood Count no Diff Today K74.4 - Secondary biliary cirrhosis Prothrombin Time INR Today K74.4 - Secondary biliary cirrhosis Medications: New rifaximin 550 mg PO BID 90 days 180 tabs 1RF Coding Level of Care Code Est Pt Level 5 (17941) Diagnoses RHINA (acute kidney injury) N17.9 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 Crohn's disease of large intestine without complication K50.10 Digestive disease complication type: without complication Gastrointestinal tract location: large intestine Sarcopenia M62.84
[2023-07-25 09:15] VITALS: BP 106/62; PULSE 68; O2SAT 100; BMI 26.5
== END 2023-07-25 10:01 | disposition home or self-care (01) ==
PROVIDERS: PCP Internal Medicine; Visit Provider Internal Medicine
DX: K74.4 Secondary biliary cirrhosis (principal); D50.0 Iron deficiency anemia secondary to blood loss (chronic); K50.10 Crohn's disease of large intestine without complications; M62.84 Sarcopenia; N17.9 Acute kidney failure, unspecified
CPT/HCPCS: 99215

== ENCOUNTER → 2023-09-29 15:03 | Outpatient (REF) | payer OTHER, SELFPAY ==
--- NOTE | 2023-09-29 15:07 | CA_ITS ---
Transthoracic Echocardiogram Patient (Last, First, Middle): Beata Carrillo, Gender: Female Date of : 1970 Age: 52 Procedure Date: 09/29/2023 Procedure Type: Transthoracic Echocardiogram Location: OP Height: 162.56 cm Weight: 67.13 kg BSA: 1.72 m2 Heart Rate: 76 bpm BP: 106 / 72 mmHg Fittings Finisher: SB Referring MD: Romana Garcia MD Symptoms: K74.4 - Secondary biliary cirrhosis Study Quality: Fair ECG Rhythm: Sinus Conclusions: - The left ventricular systolic function is normal. The visually estimated ejection fraction is between 55-60%. - No obvious valvular pathology seen on this study. Findings Left Ventricle Normal left ventricular cavity size. The left ventricular systolic function is normal. The visually estimated ejection fraction is between 55-60%. There is no evidence of regional wall motion abnormalities. Diastolic function is normal for age. There is mild septal asymmetric hypertrophy. Right Ventricle Normal right ventricular cavity size and systolic function. Atria Both atria are normal in size. Aortic Valve There is a normal trileaflet aortic valve. There is no aortic valve stenosis. There is no aortic valve regurgitation. Mitral Valve The mitral valve appears normal. There is no mitral valve regurgitation. There is no mitral valve stenosis. Pulmonic Valve The pulmonic valve is likely normal. Tricuspid Valve There is no tricuspid valve regurgitation. Tricuspid regurgitation envelope is inadequate for calculation of right ventricular systolic pressure. Great Vessels The asc aorta is normal in size. Venous The inferior vena cava is normal in size and collapses greater than 50% with inspiration. Pericardium/Pleural There is no evidence of pericardial effusion. Prior Study Comparison No prior study available for comparison. Recommendations, Care & Conclusions No obvious valvular pathology seen on this study. Measurements 2D Linear Measurements IVSd: 0.86 0.6-0.9/0.6-1.0 cm LVIDd: 4.92 3.9-5.3/4.2-5.9 cm LVIDd Index: 2.86 2.4-3.2/2.2-3.1 cm/m2 LVIDs: 2.98 2.0-3.6 cm LVPWd: 0.66 0.7-1.1 cm LA Diam: 3.50 2.7-3.8/3.0-4.0 cm LAIDs Index: 2.03 1.5-2.3 cm/m2 LV Mass: 153.91 67-162/88-224 g LV Mass Index: 89.49 43-95/49-115 g/m2 LVOT Diam: 2.00 3.0+(-)1.3 cm 2D Systolic Function EF 4C: 78.80 >55% Mitral Valve MV Pk E: 0.87 MV PK A: 0.72 MV Decel Time: 184.00 E/A: 1.20 E'Lateral: 12.50 E'Medial: 5.44 E/E' Med: 16.10 E/E' Lat: 7.00 PHT: 54.00 MVA PHT: 4.07 Decel Branch: 4.75 Aortic Valve AoV Pk Dionicio: 1.42 AoV Mn Dionicio: 1.05 AoV VTI: 0.32 AoV Pk Grad: 8.00 Aov Mn Grad: 5.00 ERIN Cont.VTI: 2.54 ERIN: 2.50 LVOT LVOT Pk Dionicio: 1.12 LVOT Mn Dionicio: 0.84 LVOT VTI: 0.26 LVOT Pk Grad: 5.00 LVOT Mn Grad: 3.00 LVOT Diam: 2.00 LVOT Area: 3.14 Diastolic Function MV Pk E: 0.87 MV Pk A: 0.72 E/A: 1.20 E'Medial: 5.44 E/E' Med: 16.10 E' Laterial: 12.50 E/E' Lat: 7.00 Right Ventricle TAPSE (mm): 2.90 TVS' Dionicio: 15.70 Tricuspid Valve RA Press: 3.00 Great Vessels Aorta Sinus of Valsalva: 3.20 2.0-3.5 cm Ao Asc: 3.50 2.1-3.4 cm Pulmonary Veins Pulm Vein S/D 1.30 Pulmonary Valve PV Pk Dionicio: 1.00 Peak PV Grad: 4.00 Updated in Other Vendor System with Status of Final Jhon Juarez MD electronically signed on 10/01/2023 1:51:48 PM with status of Final
== END ==
LOC: HO.CARD 15:03
PROVIDERS: PCP Internal Medicine; Visit Provider Internal Medicine
DX: K74.4 Secondary biliary cirrhosis (principal); D50.0 Iron deficiency anemia secondary to blood loss (chronic)
CPT/HCPCS: 93306

== ENCOUNTER → 2023-09-29 15:07 | Outpatient (BNV) | payer OTHER, SELFPAY | PROVIDERS: PCP Internal Medicine; Visit Provider Internal Medicine | DX: I42.2 Other hypertrophic cardiomyopathy (principal) | CPT/HCPCS: 93306 ==

== ENCOUNTER → 2023-09-30 11:05 | Outpatient (REF) | payer OTHER, SELFPAY ==
--- NOTE | 2023-09-30 11:19 | CA_ITS ---
Acquisition Time: 2023-09-30 11:26:46 Total Exercise Time: 00:16:14 Test Indications: Pre-Op Evaluation Medications: CARVEDILOL SPIRONALACTONE LASIX RIFAXOMIN Protocol: DOBUTAMINE Max HR: 137 BPM 81% of Pred: 168 BPM Max BP: 164/060 mmHG Max Work Load: 1.0 METS Pharmacological stress echo with Dobutamine infusion max dose 40 mcg/kg achieivng 82% MPHR, while laying flat, without anginal symptoms, with report of splitting headache at max dose, without arrhythmias, with scooping lead 2 downsloping in leads V3-V6. Echo images obtained by tech at rest, at 10 mck/kg, and at max dose / peak HR. Headache improved as heart rate and blood pressure reutrned to baseline and feels good . Test reviewed with Dr. Juarez. Referred By: Romana Garcia Overread By: Kelly Mi
== END ==
LOC: HO.CARD 11:05
PROVIDERS: PCP Internal Medicine; Visit Provider Internal Medicine
DX: Z01.818 Encounter for other preprocedural examination (principal); K74.60 Unspecified cirrhosis of liver
CPT/HCPCS: 93351; J1250; J1642; Q9957

== ENCOUNTER 2023-10-04 08:30 | Outpatient (REF) | payer OTHER, SELFPAY ==
--- NOTE | ~2023-10-04 | CT_ITS ---
EXAMINATION: CT CHEST WITH CONTRAST CLINICAL INFORMATION: Preliver transplant. COMPARISON: CT chest October 30, 2022 TECHNIQUE: Multidetector volumetric CT imaging of the chest was obtained after the administration of 85 mL of Omnipaque 350 intravenous contrast without immediate adverse reactions. Axial MIP volume rendering provided. Sagittal and coronal reformatted images were obtained. This CT examination was performed using dose optimization techniques as appropriate, variously including the following: *Automated exposure control *Adjustment of mA and/or kV according to patient size (this includes techniques or standardized protocols for targeted exams where dose is matched to indication/reason for exam; i.e. extremities or head) *Use of iterative reconstruction technique DLP: 840 mGy-cm FINDINGS: LUNGS: The lungs are clear with no evidence of inflammation or nodules. MEDIASTINUM: No mediastinal mass or significant lymphadenopathy. Heart size is normal. No pericardial effusion. Central catheter tip at caval atrial junction. Coronary arteries: Small volume of coronary artery calcification. PLEURA: There is no pleural effusion. No pleural mass or thickening. AXILLA: No lymphadenopathy. UPPER ABDOMEN: Nodular contour of liver due to cirrhosis. Abdominal ascites. Splenomegaly. OSSEOUS STRUCTURES: Unremarkable. CT/CT chest w IV con IMPRESSION: 1. No acute abnormality CT chest. 2. Cirrhosis of liver. Abdominal ascites. Splenomegaly. Fleischner guidelines were followed. Electronically signed by: Juan Rojas MD 10/06/2023 05:21 PM EDT
--- NOTE | ~2023-10-04 | CT_ITS ---
EXAMINATION: CT ABDOMEN WITH CONTRAST CLINICAL INFORMATION: LIVER DISEASE, CHRONIC, TUMOR SCREENING LIVER COMPARISON: None available. TECHNIQUE: Contiguous axial thin section helical images of the abdomen were performed following the administration of 85mL of Omnipaque 350 intravenous contrast. 180 second delayed imaging also performed through the abdomen. The data set was reformatted in the coronal and sagittal planes and reviewed on an independent workstation. This CT examination was performed using dose optimization techniques as appropriate, variously including the following: *Automated exposure control *Adjustment of mA and/or kV according to patient size (this includes techniques or standardized protocols for targeted exams where dose is matched to indication/reason for exam; i.e. extremities or head) *Use of iterative reconstruction technique DLP: 244.2+245.1+245.1 mGy-cm FINDINGS: LUNG BASES: Lung bases normally aerated. LIVER, GALLBLADDER, AND BILIARY TREE: Cirrhosis of liver. Lobular contour of the liver. Within the liver measures 13 cm superior inferior. No focal liver lesion. No intrahepatic bile duct dilatation. PANCREAS: Unremarkable SPLEEN: Spleen is enlarged. Spleen measuring 18 cm superior-inferior. No focal splenic lesion. ADRENAL GLANDS AND KIDNEYS: Degenerative glands unremarkable. Kidneys of normal size and contour with normal enhancement. Tiny nonobstructive calculi in lower pole of both kidneys. No hydronephrosis. BOWEL LOOPS: No acute abnormality of the bowel. Moderate to large findings:. No bowel obstruction. No bowel wall thickening or edema. MESENTERY: Small to moderate volume of abdominal ascites. ABDOMINAL WALL: Surgical mesh right anterior abdominal wall. Small fat-containing umbilical hernia. LYMPH NODES: No significant lymphadenopathy. VASCULAR: Small bilateral vascular calcifications involve the aorta and iliac arteries. No aneurysm. Recannulated umbilical vein. Prominent veins in the subcutaneous tissue of the abdominal wall consistent with portal hypertension. Normal enhancement of the portal vein and abdominal mesenteric veins. BONES: No acute osseous abnormality. CT/CT abdomen w IV con IMPRESSION: 1. Cirrhosis of liver. No focal liver lesion. 2. Splenomegaly. 3. Small to moderate volume of abdominal ascites. 4. Recannulated umbilical vein. Prominent veins in the subcutaneous tissue of the abdominal wall consistent with portal hypertension. Fleischner guidelines were followed. Electronically signed by: Juan Rojas MD 10/06/2023 05:32 PM EDT
[2023-10-04 10:16] LABS: Hematocrit 23.3 % (37.0-47.0); Hemoglobin 7.3 g/dl (12.0-16.0); Mean Corpuscular HGB Conc 31.3 g/dl (31.0-35.0); Mean Corpuscular Hemoglobin 29.8 pg (27.0-33.0); Mean Corpuscular Volume 95.1 fL (80.0-98.0); Mean Platelet Volume 12.1 fL (9.4-12.3); Red Blood Count 2.45 X10*6/uL (4.20-5.50); Red Cell Distribution Width 16.3 % (11.0-16.0)
[2023-10-04 10:19] LABS: Platelet Count 41 X10*3/uL (160-400); White Blood Count 1.9 X10*3/uL (4.8-10.8)
[2023-10-04 10:20] LABS: INTERNATIONAL NORM RATIO 2.4 (0.9-1.1)
[2023-10-04 10:38] LABS: Alanine Aminotransferase 44 U/L (0-31); Albumin Level 2.6 g/dL (3.5-5.0); Alkaline Phosphatase 68 U/L (39-117); Anion Gap 9 (12-20); Aspartate Amino Transferase 161 U/L (5-31); Bilirubin Total 0.9 mg/dL (0.0-1.0); Blood Urea Nitrogen 22 mg/dL (9-16); Calcium 8.4 mg/dL (8.4-10.2); Carbon Dioxide 31 mmol/L (22-29); Chloride 103 mmol/L (96-108); Estimated Glomerular Filt Rate 32; Glucose Random 175 mg/dL (60-115); Potassium 4.1 mmol/L (3.3-5.1); Sodium 139 mmol/L (135-145); Total Protein 5.5 g/dL (6.5-8.0)
[2023-10-05 14:16] LABS: Creatinine POC 1.1 mg/dL (0.5-1.4); GFR POC 60
== END 2023-10-04 08:31 | disposition home or self-care (01) ==
LOC: HO.CT 08:30
PROVIDERS: Internal Medicine; Visit Provider Internal Medicine
DX: Z01.818 Encounter for other preprocedural examination (principal); K74.4 Secondary biliary cirrhosis
CPT/HCPCS: 36415; 71260; 74160; 80053; 82565; 85027; 85610

== ENCOUNTER 2023-10-06 11:51 | Emergency (ER) | payer OTHER, SELFPAY ==
[2023-10-06] VITALS (10 sets, daily range): BP systolic 91–119; BP diastolic 52–73; PULSE 66–85; RESP 10–18; TEMP 36.7–36.9; O2SAT 93–100; BMI 29.1
--- NOTE | ~2023-10-06 | XR_ITS ---
EXAMINATION: XR CHEST CLINICAL INFORMATION: Chest pain, difficulty breathing COMPARISON: Chest x-ray on 06/02/2023 TECHNIQUE: PA and lateral views of the chest were obtained. FINDINGS: HEART & VASCULARITY: There are normal cardiac size and pulmonary vascularity. Left brachiocephalic approach Port-A-Cath is seen ending at expected location of right atrium. LUNGS: Unchanged juxtapleural peripheral fibrotic scar is seen in lateral pleural border of inferior right upper lobe. No pneumothorax is seen. BONES: Bony skeleton is intact. XR/XR chest 2V IMPRESSION: 1. Unchanged lateral inferior right upper lobe subpleural fibrotic scar. 2. No interval change in position of Port-A-Cath. Electronically signed by: Cher Blancas MD 10/06/2023 01:03 PM EDT
--- NOTE | 2023-10-06 11:53 | ECG_ITS ---
Test Reason : cp Blood Pressure : / mmHG Vent. Rate : 083 BPM Atrial Rate : 083 BPM P-R Int : 154 ms QRS Dur : 062 ms QT Int : 296 ms P-R-T Axes : 038 002 025 degrees QTc Int : 347 ms Normal sinus rhythm Low voltage QRS Cannot rule out Anterior infarct , age undetermined Abnormal ECG When compared with ECG of 02-JUN-2023 18:07, QRS duration has decreased ST now depressed in Anterior leads Nonspecific T wave abnormality, worse in Lateral leads QT has shortened Referred By: Roselyn Law Electronically Signed By:PATRICK ST
--- NOTE | 2023-10-06 12:04 | PC.NURSE ---
pt has a port left upper chest
--- NOTE | 2023-10-06 12:08 | ED.SOB ---
HPI - SOB/Dyspnea General Chief Complaint: Chest Pain Stated Complaint: CP Time Seen by Provider: 10/06/23 12:59 History of Present Illness ED Provider: Dr. 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 The patient has spoken with her button maker and one week ago her Aldastone was increased from 25mg to 50mg. She is still on Lasix 40mg. She denies: abdominal pain, nausea/vomiting, diarrhea, fever or chills. She otherwise denies any significant life changes recently. Related Data Home Medications ?Medication ?Instructions ?Recorded ?Confirmed methadone 10 mg/mL oral concentrate 76 mg PO DAILY 05/04/21 03/30/23 multivitamin 1 tab PO DAILY 07/28/22 03/30/23 fluticasone propionate 50 1 spray intranasal DAILY PRN 10/26/22 03/30/23 mcg/actuation nasal Allergy Symptoms spray,suspension (Flonase Allergy Relief) glucagon 3 mg/actuation nasal mg intranasal 05/23/23 spray (Baqsimi) vitamin A 3,000 mcg (10,000 unit) 1 cap PO DAILY 05/23/23 capsule Previous Rx's ?Medication ?Instructions ?Recorded albuterol sulfate 90 mcg/actuation 2 puff inhalation Q4-6H PRN 11/05/22 aerosol inhaler shortness of breath or wheezing #1 ea ferrous sulfate 324 mg (65 mg 324 mg PO DAILY 90 days #90 tabs 02/17/23 iron) tablet,delayed release furosemide 20 mg tablet 40 mg PO BID 90 days #360 tabs 02/17/23 ondansetron 4 mg disintegrating 4 mg PO Q8H PRN nausea and 02/17/23 tablet vomiting 30 days #10 tabs levothyroxine 50 mcg tablet 50 mcg PO DAILY@0600 #90 tabs 02/25/23 food supplemt, lactose-reduced 1 ea PO .BID 30 days #14,220 mL 05/23/23 0.06 gram-1.5 kcal/mL oral liquid (Boost Plus) potassium chloride 20 mEq 40 meq (2 x 20 mEq) PO BID 10 days 06/02/23 tablet,extended release #40 tabs omeprazole 20 mg capsule,delayed 20 mg PO BEDTIME #90 caps 06/23/23 release spironolactone 50 mg tablet 50 mg PO BID 90 days #180 tabs 07/07/23 (Aldactone) rifaximin 550 mg tablet 550 mg PO BID 90 days #180 tabs 07/25/23 acyclovir 400 mg tablet 400 mg PO BEDTIME #90 tabs 08/29/23 carvedilol 6.25 mg tablet 6.25 mg PO BID #180 tabs 09/05/23 lidocaine 5 % topical patch 1 patch topical DAILY 30 days #30 10/06/23 (Lidoderm) ea Allergies Allergy/AdvReac Type Severity Reaction Status Date / Time ciprofloxacin [Cipro] Allergy Unknown swelling Verified 10/06/23 12:02 of the throat , hives nitrofurantoin AdvReac Liver Verified 10/06/23 12:02 [From Macrobid] cirrhosis decompensation Review of Systems Review of Systems: Yes all other systems are reviewed and are negative PMFSH Past Medical History Attestation statement: The following information was validated with the patient. 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 Other Mental health disorder Substance use disorder Social History Social History Household Members: None Housing: Apartment Are you a primary career technical education instructor to a significant other at home: No Do you presently have visiting nurse or other home services: No Alcohol intake: never Patient Tobacco Use Status: Current everyday Tobacco user Tobacco use type: Cigarette Cigarettes Per Day: 4 Years Smoked: 17 years old e-Cigarette/Vaping Use: Never Used Advance Directives: Yes Advance Directives Information Provided: Yes Advance Directives on File: No Do you have a plan to hurt others: No Plan service: No Current occupational status: employed Cognitive needs: No Hearing needs: No Vision needs: No Physical Exam Vital Signs: Vital Signs: Last Vital Signs Temp 98.5 F 10/06/23 17:27 Pulse 74 10/06/23 17:27 Resp 10 L 10/06/23 17:27 BP 92/57 L 10/06/23 17:27 Pulse Ox 99 10/06/23 17:27 O2 Del Method Room Air 10/06/23 17:27 BMI result Body Mass Index 29.1 Patient is afebrile and hemodynamically stable Const: Other: Tearful on examination General: cooperative HEENT: Head: Yes normal to inspection and Yes atraumatic Eyes: General: appearance normal, both eyes and all related structures Pupils: Equal, round and reactive pupils present EOM: EOMs intact bilaterally Neck: Neck: Yes normal visual inspection, Yes full ROM, Yes supple and No tender Chest: Chest palpation & inspection: normal inspection of the chest and normal palpation of entire chest wall Resp: Effort & Inspection: normal respiratory effort, able to speak in complete sentences, no cough and no respiratory distress Auscultation: clear to auscultation bilaterally Cardio: Rate: regular rate Rhythm: regular rhythm Peripheral pulses: Peripheral pulses 2+ throughout GI: Inspection: Yes normal to inspection, No Abdominal wall edema and No distended Palpation (GI): Soft to palpation, not firm, nontender, no guarding and not rigid Back/Spine/Pelvis: Back: No back tenderness Neuro: Cranial nerves: Yes Equal, round and reactive pupils present Extrem: Other: 2+ bilateral lower extremity edema Course Course Course Narrative: This is a Rapid Medical Examination (RME) performed by Liane Law PA-C in triage. Full HPI, ROS, assessment and treatment plan per primary provider in the Main ED. 53 year old female hx of currently on liver transplant list here for eval of increased swelling to LEs and abdomen, increased SOB, and central chest pain worse w/ breathing x 1 week. Had labs drawn and CT chest/ abdomen done outpatient 2 days ago. has not been contact with the results. PE: pale appearing. tearful. Ascitic abdomen. 2+ pitting edema to LEs. lungs clear. Plan: labs, ekg, cxr Call out to [facility] to have CT chest/abdomen performed on 10/04/2023 read. Reevaluation(s) Reevaluation #1: Patient is afebrile and hemodynamically stable. Providing Morphine 4mg IV for pain control. Multiple calls placed to [facility] for read of CT Chest/Abdomen/Pelvis. 1735: Patient's CT Chest was read as unremarkable for acute pathology. 1745: Patient's CT Abdomen/Pelvis was read as unremarkable for acute pathology. Baseline thrombocytopenia. Baseline Cr 1.69. Discussed patient's lab finding of Hgb 7.0 with patient. Of note it was 7.3 on 10/04/2023. CT results and Hgb result discussed with patient's GI Dr. Garcia. She recommends transfusion 1 unit pRBC and then patient is appropriate for discharge to home. Patient is agreeable with this pain. She justs requests tylenol and benadryl prior to transfusion. 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 Plan: Discharge to home with PCP and GI follow up Return precautions given Medications Administered Discontinued Medications Generic Name Dose Route Start Last Admin Trade Name Freq PRN Reason Stop Dose Admin Acetaminophen 975 mg 10/06/23 17:51 10/06/23 19:00 Acetaminophen 325 Mg Tablet PO 10/06/23 17:52 975 mg ONCE ONE Administration Diphenhydramine HCl 25 mg 10/06/23 17:51 10/06/23 18:59 Diphenhydramine Hcl 25 Mg Capsule PO 10/06/23 17:52 25 mg ONCE ONE Administration Lidocaine 1 patch 10/06/23 17:51 10/06/23 19:01 Lidocaine 4 % Patch Adh..Patch TRANSDERMA 10/06/23 17:52 1 patch ONCE ONE Administration Protocol Morphine Sulfate 4 mg 10/06/23 13:41 10/06/23 14:29 Morphine Sulfate 4 Mg/Ml Cartridge IVPUSH 10/06/23 13:42 4 mg ONCE ONE Administration Protocol Medical Decision Making Lab Data 10/06/23 15:06 10/06/23 15:06 Labs: Lab Results 10/06/23 10/06/23 10/06/23 Range/Units 15:06 15:15 15:32 WBC 1.8 L (4.8-10.8) X10*3/uL RBC 2.32 L (4.20-5.50) X10*6/uL Hgb 7.0 L* (12.0-16.0) g/dl Hct 21.7 L (37.0-47.0) % MCV 93.5 (80.0-98.0) fL MCH 30.2 (27.0-33.0) pg MCHC 32.3 (31.0-35.0) g/dl RDW 16.7 H (11.0-16.0) % Plt Count 41 L (160-400) X10*3/uL MPV 11.7 (9.4-12.3) fL Immature Gran % (Auto) 0.0 (0.0-0.4) % Neut % (Auto) 76.7 H (45-73) % Lymph % (Auto) 12.7 L (20-40) % [place] % (Auto) 9.4 (2-11) % Eos % (Auto) 0.6 (0-4) % Baso % (Auto) 0.6 (0-2) % Lymph # (Auto) 0.2 L (1.2-4.9) X10*3/uL [place] # (Auto) 0.2 (0.1-1.2) X10*3/uL Eos # (Auto) 0.0 (0.0-0.4) X10*3/uL Baso # (Auto) 0.0 (0.0-0.2) X10*3/uL Abs Immat Gran (auto) 0.00 (0.00-0.03) X10*3/uL Absolute Neuts (auto) 1.4 L (2.0-8.3) x10*3/uL Absolute Nucleated RBC 0.000 (0.0-0.012) X10*3/uL Nucleated RBC % (auto) 0.0 (0.0-0.2) /100WBC Smear Tech's Comments VERIFIED PT 30.2 H (11.1-13.3) SEC INR 2.5 H (0.9-1.1) VBG pH 7.50 H (7.32-7.43) VBG pCO2 41 mmHg VBG pO2 65 mmHg VBG HCO3 32 H (22-26) mmol/L VBG O2 Saturation TNP VBG Base Excess 9.0 mmol/L Sodium 139 (135-145) mmol/L Potassium 4.2 (3.3-5.1) mmol/L Chloride 103 (96-108) mmol/L Carbon Dioxide 31 H (22-29) mmol/L Anion Gap 9 L (12-20) BUN 17 H (9-16) mg/dL Creatinine 1.69 H (0.5-1.4) mg/dL Estim Creat Clear Calc 38.6 Estimated GFR 32 Random Glucose 255 H (60-115) mg/dL Calcium 8.6 (8.4-10.2) mg/dL Magnesium 2.1 (1.6-2.6) mg/dL Total Bilirubin 0.7 (0.0-1.0) mg/dL AST 67 H (5-31) U/L ALT 33 H (0-31) U/L Alkaline Phosphatase 70 (39-117) U/L Ammonia 48 (13-55) umol/L Troponin I High Sens < 2.7 (<3.5-17.0) ng/L B-Natriuretic Peptide 162 H (<100) pg/mL Total Protein 5.3 L (6.5-8.0) g/dL Albumin 2.5 L (3.5-5.0) g/dL Lipase 51 (8-78) U/L Urine Color Yellow Urine Appearance Clear Urine pH 7.0 (5.0-9.0) Ur Specific Wilson 1.010 (1.005-1.025) Urine Protein Negative (Neg-Trace) mg/dL Urine Glucose (UA) Negative (Negative) mg/dL Urine Ketones Negative (Negative) mg/dL Urine Blood Negative (Negative) Urine Nitrite Negative (Negative) Ur Leukocyte Esterase Negative (Negative) Blood Type Antibody Screen Crossmatch 10/06/23 Range/Units 18:46 WBC (4.8-10.8) X10*3/uL RBC (4.20-5.50) X10*6/uL Hgb (12.0-16.0) g/dl Hct (37.0-47.0) % MCV (80.0-98.0) fL MCH (27.0-33.0) pg MCHC (31.0-35.0) g/dl RDW (11.0-16.0) % Plt Count (160-400) X10*3/uL MPV (9.4-12.3) fL Immature Gran % (Auto) (0.0-0.4) % Neut % (Auto) (45-73) % Lymph % (Auto) (20-40) % Woodford % (Auto) (2-11) % Eos % (Auto) (0-4) % Baso % (Auto) (0-2) % Lymph # (Auto) (1.2-4.9) X10*3/uL [place] # (Auto) (0.1-1.2) X10*3/uL Eos # (Auto) (0.0-0.4) X10*3/uL Baso # (Auto) (0.0-0.2) X10*3/uL Abs Immat Gran (auto) (0.00-0.03) X10*3/uL Absolute Neuts (auto) (2.0-8.3) x10*3/uL Absolute Nucleated RBC (0.0-0.012) X10*3/uL Nucleated RBC % (auto) (0.0-0.2) /100WBC Smear Tech's Comments PT (11.1-13.3) SEC INR (0.9-1.1) VBG pH (7.32-7.43) VBG pCO2 mmHg VBG pO2 mmHg VBG HCO3 (22-26) mmol/L VBG O2 Saturation VBG Base Excess mmol/L Sodium (135-145) mmol/L Potassium (3.3-5.1) mmol/L Chloride (96-108) mmol/L Carbon Dioxide (22-29) mmol/L Anion Gap (12-20) BUN (9-16) mg/dL Creatinine (0.5-1.4) mg/dL Estim Creat Clear Calc Estimated GFR Random Glucose (60-115) mg/dL Calcium (8.4-10.2) mg/dL Magnesium (1.6-2.6) mg/dL Total Bilirubin (0.0-1.0) mg/dL AST (5-31) U/L ALT (0-31) U/L Alkaline Phosphatase (39-117) U/L Ammonia (13-55) umol/L Troponin I High Sens (<3.5-17.0) ng/L B-Natriuretic Peptide (<100) pg/mL Total Protein (6.5-8.0) g/dL Albumin (3.5-5.0) g/dL Lipase (8-78) U/L Urine Color Urine Appearance Urine pH (5.0-9.0) Ur Specific Wilson (1.005-1.025) Urine Protein (Neg-Trace) mg/dL Urine Glucose (UA) (Negative) mg/dL Urine Ketones (Negative) mg/dL Urine Blood (Negative) Urine Nitrite (Negative) Ur Leukocyte Esterase (Negative) Blood Type A Positive Antibody Screen NEGATIVE Crossmatch See Detail Independent Interpretation I performed an independent interpretation of an: EKG Interpretation: NSR 83BPM without ischemic changes Radiology Impression Discussion of test interpretation with radiology: I have reviewed the radiologist's reading. Radiologist Impression: EXAMINATION: XR CHEST CLINICAL INFORMATION: Chest pain, difficulty breathing COMPARISON: Chest x-ray on 06/02/2023 TECHNIQUE: PA and lateral views of the chest were obtained. FINDINGS: HEART & VASCULARITY: There are normal cardiac size and pulmonary vascularity. Left brachiocephalic approach Port-A-Cath is seen ending at expected location of right atrium. LUNGS: Unchanged juxtapleural peripheral fibrotic scar is seen in lateral pleural border of inferior right upper lobe. No pneumothorax is seen. BONES: Bony skeleton is intact. XR/XR chest 2V IMPRESSION: 1. Unchanged lateral inferior right upper lobe subpleural fibrotic scar. 2. No interval change in position of Port-A-Cath. Electronically signed by: Cher Blancas MD 10/06/2023 01:03 PM EDT EXAMINATION: CT CHEST WITH CONTRAST CLINICAL INFORMATION: Preliver transplant. COMPARISON: CT chest October 30, 2022 TECHNIQUE: Multidetector volumetric CT imaging of the chest was obtained after the administration of 85 mL of Omnipaque 350 intravenous contrast without immediate adverse reactions. Axial MIP volume rendering provided. Sagittal and coronal reformatted images were obtained. This CT examination was performed using dose optimization techniques as appropriate, variously including the following: *Automated exposure control *Adjustment of mA and/or kV according to patient size (this includes techniques or standardized protocols for targeted exams where dose is matched to indication/reason for exam; i.e. extremities or head) *Use of iterative reconstruction technique DLP: 840 mGy-cm FINDINGS: LUNGS: The lungs are clear with no evidence of inflammation or nodules. MEDIASTINUM: No mediastinal mass or significant lymphadenopathy. Heart size is normal. No pericardial effusion. Central catheter tip at caval atrial junction. Coronary arteries: Small volume of coronary artery calcification. PLEURA: There is no pleural effusion. No pleural mass or thickening. AXILLA: No lymphadenopathy. UPPER ABDOMEN: Nodular contour of liver due to cirrhosis. Abdominal ascites. Splenomegaly. OSSEOUS STRUCTURES: Unremarkable. CT/CT chest w IV con IMPRESSION: 1. No acute abnormality CT chest. 2. Cirrhosis of liver. Abdominal ascites. Splenomegaly. EXAMINATION: CT ABDOMEN WITH CONTRAST CLINICAL INFORMATION: LIVER DISEASE, CHRONIC, TUMOR SCREENING LIVER COMPARISON: None available. TECHNIQUE: Contiguous axial thin section helical images of the abdomen were performed following the administration of 85mL of Omnipaque 350 intravenous contrast. 180 second delayed imaging also performed through the abdomen. The data set was reformatted in the coronal and sagittal planes and reviewed on an independent workstation. This CT examination was performed using dose optimization techniques as appropriate, variously including the following: *Automated exposure control *Adjustment of mA and/or kV according to patient size (this includes techniques or standardized protocols for targeted exams where dose is matched to indication/reason for exam; i.e. extremities or head) *Use of iterative reconstruction technique DLP: 244.2+245.1+245.1 mGy-cm FINDINGS: LUNG BASES: Lung bases normally aerated. LIVER, GALLBLADDER, AND BILIARY TREE: Cirrhosis of liver. Lobular contour of the liver. Within the liver measures 13 cm superior inferior. No focal liver lesion. No intrahepatic bile duct dilatation. PANCREAS: Unremarkable SPLEEN: Spleen is enlarged. Spleen measuring 18 cm superior-inferior. No focal splenic lesion. ADRENAL GLANDS AND KIDNEYS: Degenerative glands unremarkable. Kidneys of normal size and contour with normal enhancement. Tiny nonobstructive calculi in lower pole of both kidneys. No hydronephrosis. BOWEL LOOPS: No acute abnormality of the bowel. Moderate to large findings:. No bowel obstruction. No bowel wall thickening or edema. MESENTERY: Small to moderate volume of abdominal ascites. ABDOMINAL WALL: Surgical mesh right anterior abdominal wall. Small fat-containing umbilical hernia. LYMPH NODES: No significant lymphadenopathy. VASCULAR: Small bilateral vascular calcifications involve the aorta and iliac arteries. No aneurysm. Recannulated umbilical vein. Prominent veins in the subcutaneous tissue of the abdominal wall consistent with portal hypertension. Normal enhancement of the portal vein and abdominal mesenteric veins. BONES: No acute osseous abnormality. CT/CT abdomen w IV con IMPRESSION: 1. Cirrhosis of liver. No focal liver lesion. 2. Splenomegaly. 3. Small to moderate volume of abdominal ascites. 4. Recannulated umbilical vein. Prominent veins in the subcutaneous tissue of the abdominal wall consistent with portal hypertension. Fleischner guidelines were followed. Electronically signed by: Juan Rojas MD 10/06/2023 05:32 PM EDT RP Discharge Plan Discharge Clinical Impression: Back pain, Anemia, Thrombocytopenia Patient Disposition: Home, Self-Care Instructions: Acute Low Back Pain (ED) Additional Instructions: As we discussed, you were seen today for back pain. We reviewed the results of your CT Chest/Abdomen/Pelvis which were reassuring for anything new. Your red blood cells were low at [address] Garcia recommend you be transfused one unit red blood cells. Please follow up with Dr. Garcia and your PCP within 1 - 2 days to discuss your recent ED visit. Return to the emergency department for: Worsening back pain Abdominal pain Fever Any other concerns you have! Prescriptions: New lidocaine [Lidoderm] 5 % adhesive patch,medicated 1 patch topical DAILY 30 Days Qty: 30 0RF Rx Instructions: leave on most painful area for up to 12 hrs No Action albuterol sulfate 90 mcg/actuation HFA aerosol inhaler 2 puff inhalation Q4-6H PRN (Reason: shortness of breath or wheezing) Qty: 1 3RF ferrous sulfate 324 mg (65 mg iron) tablet,delayed release (DR/EC) 324 mg PO DAILY 90 Days Qty: 90 1RF furosemide 20 mg tablet 40 mg PO BID 90 Days Qty: 360 1RF Protocol: Hold for SBP< HOLD for SBP < : 90 levothyroxine 50 mcg tablet 50 mcg PO DAILY@0600 Qty: 90 1RF Boost Plus 0.06 gram- 1.5 kcal/mL liquid 1 ea PO .BID 30 Days Qty: 84462 2RF omeprazole 20 mg capsule,delayed release(DR/EC) 20 mg PO BEDTIME Qty: 90 0RF spironolactone [Aldactone] 50 mg tablet 50 mg PO BID 90 Days Qty: 180 1RF acyclovir 400 mg tablet 400 mg PO BEDTIME Qty: 90 0RF carvedilol 6.25 mg tablet 6.25 mg PO BID Qty: 180 0RF methadone 10 mg/mL Concentrate 76 mg PO DAILY Rx Instructions: PT REC'D 27 TAKE HOME BOTTLES FROM [employer] ON 10/11/22 multivitamin Tablet 1 tab PO DAILY fluticasone propionate [Flonase Allergy Relief] 50 mcg/actuation spray,suspension 1 spray intranasal DAILY PRN (Reason: Allergy Symptoms) Rx Instructions: administer into each nostril potassium chloride 20 mEq tablet extended release 40 meq PO BID 10 Days Qty: 40 0RF ondansetron 4 mg tablet,disintegrating 4 mg PO Q8H PRN (Reason: nausea and vomiting) 30 Days Qty: 10 1RF Baqsimi 3 mg/actuation spray,non-aerosol intranasal vitamin A 3,000 mcg (10,000 unit) capsule 1 cap PO DAILY rifaximin 550 mg tablet 550 mg PO BID 90 Days Qty: 180 1RF Print Language: Bahraini
--- NOTE | 2023-10-06 12:30 | PC.NURSE ---
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 States that she believes that she needs a thoracentesis, as she has not had one in over a year. She is currently on the wait list for a liver through [facility].
[2023-10-06] MEDS: Morphine Sulfate 4 MG/ML CARTRIDGE IVPUSH (14:29)
--- NOTE | 2023-10-06 14:40 | PC.NURSE ---
Pt.'s port accessed. + blood return, tolerated well
[2023-10-06 15:23] LABS: VBG HCO3 32 mmol/L (22-26); VBG pCO2 41 mmHg; VBG pO2 65 mmHg
[2023-10-06 15:24] LABS: Venous Blood Gas Refer to POC result
[2023-10-06 15:27] LABS: Ammonia 48 umol/L (13-55)
[2023-10-06 15:28] LABS: Basophils Percent Auto 0.6 % (0-2); Eosinophils Percent Auto 0.6 % (0-4); Hematocrit 21.7 % (37.0-47.0); Lymphocytes Absolute Auto 0.2 X10*3/uL (1.2-4.9); Lymphocytes Percent Auto 12.7 % (20-40); MANUAL DIFF FLAG SCAN; Mean Corpuscular HGB Conc 32.3 g/dl (31.0-35.0); Mean Corpuscular Hemoglobin 30.2 pg (27.0-33.0); Mean Corpuscular Volume 93.5 fL (80.0-98.0); Mean Platelet Volume 11.7 fL (9.4-12.3); Monocytes Absolute Auto 0.2 X10*3/uL (0.1-1.2); Monocytes Percent Auto 9.4 % (2-11); Neutrophils Absolute Auto 1.4 x10*3/uL (2.0-8.3); Neutrophils Percent Auto 76.7 % (45-73); Red Blood Count 2.32 X10*6/uL (4.20-5.50); Red Cell Distribution Width 16.7 % (11.0-16.0); SCAN SMEAR FLAG 1
[2023-10-06 15:29] LABS: White Blood Count 1.8 X10*3/uL (4.8-10.8)
[2023-10-06 15:30] LABS: Platelet Count 41 X10*3/uL (160-400)
[2023-10-06 15:31] LABS: INTERNATIONAL NORM RATIO 2.5 (0.9-1.1); Prothrombin Time 30.2 SEC (11.1-13.3)
[2023-10-06 15:36] LABS: Alanine Aminotransferase 33 U/L (0-31); Albumin Level 2.5 g/dL (3.5-5.0); Alkaline Phosphatase 70 U/L (39-117); Anion Gap 9 (12-20); Aspartate Amino Transferase 67 U/L (5-31); Bilirubin Total 0.7 mg/dL (0.0-1.0); Blood Urea Nitrogen 17 mg/dL (9-16); Calcium 8.6 mg/dL (8.4-10.2); Carbon Dioxide 31 mmol/L (22-29); Chloride 103 mmol/L (96-108); Creatinine Clr Calc Pharmacy 38.6; Estimated Glomerular Filt Rate 32; Glucose Random 255 mg/dL (60-115); Lipase 51 U/L (8-78); Magnesium 2.1 mg/dL (1.6-2.6); Potassium 4.2 mmol/L (3.3-5.1); Sodium 139 mmol/L (135-145); Total Protein 5.3 g/dL (6.5-8.0)
[2023-10-06 15:41] LABS: B Type Natriuretic Peptide 162 pg/mL (<100)
[2023-10-06 15:45] LABS: Troponin-I High Sensitivity < 2.7 ng/L (<3.5-17.0)
[2023-10-06 15:48] LABS: Appearance Urine Clear; Color Urine Yellow; Glucose Urine UA Negative (Negative); Leukocyte Esterase Urine Negative (Negative); Nitrite Urine Negative (Negative); Urine Blood Negative (Negative); Urine Ketones Negative (Negative); Urine Protein Negative (Neg-Trace)
[2023-10-06 15:51] LABS: SLIDE REVIEW VERIFIED
--- NOTE | 2023-10-06 17:48 | MHC.EDTECH ---
Patient requested food I gave them a turkey sandwich and mau chente.
[2023-10-06] MEDS: diphenhydrAMINE HCL 25 MG CAPSULE PO (18:59)
[2023-10-06] MEDS: Acetaminophen 325 MG TABLET 975 MG PO (19:00)
[2023-10-06] MEDS: Lidocaine 4 % Patch ADH..PATCH 1 PATCH TRANSDERMA (19:01)
--- NOTE | 2023-10-06 21:20 | PC.NURSE ---
blood transfusion started, tolerating well. pt reports transfusion reactions in the past, headache, blood in urine, kidney pain. pt will alert staff is this sx occur
[2023-10-07 00:27] VITALS: BP 109/56; PULSE 67; RESP 12; TEMP 36.8
[2023-10-07 00:45] VITALS: BP 99/56; PULSE 71; RESP 15; TEMP 36.8; O2SAT 98
[2023-10-07] MEDS: Heparin Sodium,Porcine Flush 50 UNITS, 0.9 % Sodium Chloride Flush 5 ML IVFLUSH (00:48)
[2023-10-07 01:06] VITALS: BP 99/56; PULSE 71; RESP 15; TEMP 36.8; O2SAT 98
== END 2023-10-07 01:07 | disposition home or self-care (01) ==
PROVIDERS: Physician Assistant Medical; Emergency Provider Emergency Medicine; PCP Internal Medicine
DX: M54.9 Dorsalgia, unspecified (principal); D64.9 Anemia, unspecified; D69.6 Thrombocytopenia, unspecified; R60.0 Localized edema; R06.02 Shortness of breath; R07.9 Chest pain, unspecified; E11.9 Type 2 diabetes mellitus without complications; I10 Essential (primary) hypertension; F17.210 Nicotine dependence, cigarettes, uncomplicated; F11.20 Opioid dependence, uncomplicated; Z79.899 Other long term (current) drug therapy
CPT/HCPCS: 36415; 71046; 80053; 81003; 82140; 82803; 83690; 83735; 83880; 84484; 85025; 85610; 86850; 86900; 86901; 86923; 93005; 96361; 96374; 96375; 99285; J1642; J2270; P9016

== ENCOUNTER 2023-10-07 14:27 | Outpatient (AMB) | payer OTHER, SELFPAY ==
[2023-10-07 14:29] VITALS: BP 120/60; PULSE 72; O2SAT 97; BMI 29.0
--- NOTE | 2023-10-07 14:29 | A.OFFPC_ITS ---
Vital Signs 10/07/23 14:29 Height 5 ft 4 in Weight 169 lb BMI 29.0 BP 120/60 Blood Pressure Location Lt brachial Position Sitting Pulse 72 Pulse Source Pulse Oximeter Pulse Oximetry (%) 97 Oxygen Delivery Method Room Air Intake Visit Reasons: Annual PE Allergies ciprofloxacin [Cipro] Allergy (Unknown, Verified 10/07/23 14:29) swelling of the throat , hives nitrofurantoin [From Macrobid] Adverse Reaction (Verified 10/07/23 14:29) Liver cirrhosis decompensation Medication List - Last Reconciled 10/07/23 by David Ortiz MD acyclovir 400 mg PO BEDTIME albuterol sulfate 90 mcg/actuation 2 puffs inhalation Q4-6H PRN carvedilol 6.25 mg PO BID ferrous sulfate 324 mg PO DAILY 90 days fluticasone propionate 50 mcg/actuation (Flonase Allergy Relief) 1 spray intranasal DAILY PRN furosemide 40 mg See Protocol PO BID 90 days levothyroxine 50 mcg PO DAILY@0600 lidocaine 5% (Lidoderm) 1 patch topical DAILY 30 days methadone 76 mg PO DAILY multivitamin 1 tab PO DAILY omeprazole 20 mg PO BEDTIME ondansetron 4 mg PO Q8H PRN 30 days rifaximin 550 mg PO BID 90 days spironolactone (Aldactone) 50 mg PO BID 90 days Tobacco use date assessed: 10/07/23 Dental Screening Dental Screen Date: 10/07/23 Did you have a dental visit in the last 12 months?: Yes Did you have a dental problem in the last 6 months where you did not have access to dental care?: No Was dental information given to patient?: Patient has dentist HPI Annual PE HPI Details Patient is a 53-year-old female with a history of hepatitis-C cirrhosis, portal hypertension, ascites, splenomegaly, 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 She had her spironolactone increased from 25-50 mg through her telephone sales agent She is also on Lasix 40 mg Patient had 2+ bilateral lower extremity edema in emergency room yesterday CT scan of chest was read unremarkable CT scan abdomen and pelvis was read unremarkable for acute pathology Hemoglobin came back at 7.0 It was 7.3 on of this month Lab values were discussed with Dr. Garcia news director who recommended transfusion of 1 unit packed RBCs Patient was discharged after Mammogram was July of this year Follow up with news director And hematology for anemia patient is having standing order for H&H check and blood transfusions For her back pain we have talked about using a bag with wheels so she does not put stress on her back muscles She is tender over shoulder blade left side I have sent cyclobenzaprine 5 mg to be taken at night as needed She already have lidocaine patch prescription sent to pharmacy from different provider she has not picked it up She is clearly feeling depression, and agreed to start therapy, she will meet with our behavior health coordinator today Hemoglobin A1c came back at 5.9 patient is off medication and is controlling her diet for diabetes I have placed another order for hemoglobin A1c to be done in 4 months Follow-up 1 year physical exam [facility] Medical History COPD (chronic obstructive pulmonary disease) History of central line-associated bloodstream infection (CLABSI) Liver cirrhosis Acute on chronic anemia Ascites Pancytopenia History of hepatitis C Hydrothorax Pleural effusion, right Iron deficiency anemia Ascites of liver Hypertension, essential Hypothyroidism Allergic rhinitis Lipid disorder Rosacea Rheumatoid arthritis 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 Other Mental health disorder Substance use disorder Social History Household Members: None Housing: Apartment Are you a primary care professional to a significant other at home: No Do you presently have visiting nurse or other home services: No Alcohol intake: never Patient Tobacco Use Status: Current everyday Tobacco user Tobacco use type: Cigarette Cigarettes Per Day: 4 Years Smoked: 17 years old e-Cigarette/Vaping Use: Never Used service: No Current occupational status: employed Cognitive needs: No Hearing needs: No Vision needs: No Questionnaire PHQ-9 Over the last 2 weeks, how often have you been bothered by any of the following problems? 1. Little interest or pleasure in doing things: not at all 2. Feeling down, depressed, or hopeless: not at all 3. Trouble falling or staying asleep, or sleeping too much: not at all 4. Feeling tired or having little energy: not at all 5. Poor appetite or overeating: not at all 6. Feeling bad about yourself - or that you are a failure or have let yourself or your family down: not at all 7. Trouble concentrating on things, such as reading the newspaper or watching television: not at all 8. Moving or speaking so slowly that other people could have noticed. Or the opposite - being so fidgety or restless that you have been moving around a lot more than usual: not at all 9. Thoughts that you would be better off or of hurting yourself in some way: not at all Total score: 0 Depression Screening Interpretation: Negative Depression Screening Done: Yes 18533 - PHQ-9 Billing: Yes Source: Developed by Drs. Valeriano Bhakta, Lara Quinones, Julian Golden and colleagues, with an educational maria from [employer]. Thrive Questionnaire Date Thrive assessed: 10/07/23 I am a: Patient What is your living situation today?: I have a steady place to live Within the past 12 months, did the food you bought not last and you didn't have the money to get more?: Never true Within the past 12 months, did you worry whether your food would run out before you got money to buy more?: Never true Do you have trouble paying for medicines?: No Do you have trouble getting transportation to medical appointments?: No Do you have trouble paying your heating and electricity bill?: No Do you have trouble taking care of your child, family member or friend?: No Do you have trouble with day-to-day activities such as bathing, preparing meals, shopping, managing finances, etc.?: No Are you currently unemployed and looking for a job?: No Are you interested in more education?: No Please select the resources that you would like help with: None Currently or been in a relationship where the following occur: No concerns reported THRIVE Score: 0 AUDIT C Alcohol Use Questionnaire (AUDIT-C) 1. How often do you have a drink containing alcohol?: Never 3. How often do you have six or more drinks on one occasion?: Never Total Score: 0 Score Reviewed/Action Taken: Yes NAV-7 AMB Questionnaire NAV-7 Date NAV - 7 assessed: 10/07/23 Feeling nervous, anxious, or on edge: 0 = Not at all Not being able to stop or control worryin = Not at all Worrying too much about different things: 0 = Not at all Trouble relaxin = Not at all Being so restless that it is hard to sit still: 0 = Not at all Becoming easily annoyed or irritable: 0 = Not at all Feeling afraid as if something awful might happen: 0 = Not at all Total NAV-7 score (0-4 normal; 5-9 mild; 10-14 moderate; 15-21 severe): 0 Source: Developed by Drs. Valeriano Bhakta, Lara Quinones, Julian Golden and colleagues, with an educational maria from [employer]. NAV-7 Assessment Billing NAV-7 Assessment Tool: NAV-7 Assessment 79745 Review of Systems Const Denies chills, Denies fever(s) and Denies headache(s) Eyes Denies blurry vision ENT Denies headache(s), Denies nasal discharge, Denies nasal obstruction, Denies odynophagia and Denies sinus pain Card Denies chest pain at rest and Denies chest pain with activity Resp Denies cough and Denies hemoptysis GI Denies odynophagia, Denies vomiting and Denies hematemesis Reports as per HPI Musc Denies abnormal gait Skin/Breast Reports as per HPI Neuro Denies Neuro-related abnormal movements, Denies Abnormal speech present, Denies abnormal gait and Denies headache(s) Psych Denies mood swings and Denies paranoia Endo Reports as per HPI Riley/Lymph Reports as per HPI Aller/Immun Reports as per HPI Physical exam (Primary Care) Tobacco/Smoking Status: Tobacco use Status Tobacco use date assessed 03/30/23 05/23/23 09:53 Patient Tobacco Use Status Current everyday Tobacco 05/23/23 09:53 Tobacco use type Cigarette 05/23/23 09:53 e-Cigarette/Vaping Use Never Used 05/23/23 09:53 Depression Screening Interpretation: Negative Thrive Assessment: Date of Thrive Assessment Date Thrive assessed 10/27/22 05/23/23 09:53 Currently or been in a relationship where the following occur: No concerns reported Const General: cooperative, comfortable and no acute distress Orientation/consciousness: patient oriented x3 HENMT Head: Yes normocephalic and Yes atraumatic Eyes Pupils: Equal, round and reactive pupils present EOM: EOMs intact bilaterally Neck Neck: Yes supple and No lymphadenopathy Thyroid: Thyroid normal Lymphatic: no lymphadenopathy noted Resp Effort & Inspection: normal respiratory effort and able to speak in complete sentences Auscultation: clear to auscultation bilaterally Cardio Heart sounds: S1 normal heart sound present and S2 normal heart sound present GI Palpation (GI): Soft to palpation and nontender Auscultation: normal bowel sounds General: Yes no CVA tenderness Back/Spine/Pelvis Back: no CVA tenderness Skin General skin exam: elasticity normal and turgor normal Neuro General: patient oriented x3 and gait normal Cranial nerves: Yes Equal, round and reactive pupils present Speech: No Abnormal speech present Assessment and Plan Assessment & Plan (1) Encounter for general adult medical examination with abnormal findings: Code(s): Z00.01 - Encounter for general adult medical examination with abnormal findings (2) Shoulder blade pain: Code(s): M89.8X1 - Other specified disorders of bone, shoulder (3) Diabetes 1.5, managed as type 2: Code(s): E13.9 - Other specified diabetes mellitus without complications (4) Anemia: Code(s): D64.9 - Anemia, unspecified Qualifiers: Anemia type: iron deficiency Iron deficiency anemia type: other iron deficiency Qualified Code(s): D50.8 - Other iron deficiency anemias (5) Crohn's disease: Code(s): K50.90 - Crohn's disease, unspecified, without complications Qualifiers: Digestive disease complication type: without complication Gastrointestinal tract location: large intestine Qualified Code(s): K50.10 - Crohn's disease of large intestine without complications (6) Rheumatoid arthritis: Code(s): M06.9 - Rheumatoid arthritis, unspecified Qualifiers: Rheumatoid arthritis location: other site Rheumatoid factor presence: unspecified presence Qualified Code(s): M06.9 - Rheumatoid arthritis, unspecified (7) Liver cirrhosis: Code(s): K74.60 - Unspecified cirrhosis of liver Qualifiers: Hepatic cirrhosis type: secondary biliary cirrhosis Qualified Code(s): K74.4 - Secondary biliary cirrhosis Plan Patient is a 53-year-old female with a history of hepatitis-C cirrhosis, portal hypertension, ascites, splenomegaly, 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 She had her spironolactone increased from 25-50 mg through her telephone sales agent She is also on Lasix 40 mg Patient had 2+ bilateral lower extremity edema in emergency room yesterday CT scan of chest was read unremarkable CT scan abdomen and pelvis was read unremarkable for acute pathology Hemoglobin came back at 7.0 It was 7.3 on of this month Lab values were discussed with Dr. Garcia news director who recommended transfusion of 1 unit packed RBCs Patient was discharged after Mammogram was July of this year Follow up with news director And hematology for anemia patient is having standing order for H&H check and blood transfusions For her back pain we have talked about using a bag with wheels so she does not put stress on her back muscles She is tender over shoulder blade left side I have sent cyclobenzaprine 5 mg to be taken at night as needed She already have lidocaine patch prescription sent to pharmacy from different provider she has not picked it up She is clearly feeling depression, and agreed to start therapy, she will meet with our behavior health coordinator today Hemoglobin A1c came back at 5.9 patient is off medication and is controlling her diet for diabetes I have placed another order for hemoglobin A1c to be done in 4 months Follow-up 1 year physical exam Orders: Orders Hematocrit Today D50.8 - Other iron deficiency anemias Hemoglobin A1c 4 Months E13.9 - Other specified diabetes mellitus without complications Hemoglobin Today D50.8 - Other iron deficiency anemias Medications: New cyclobenzaprine 5 mg PO BEDTIME 30 days 30 tabs 0RF M54.9 - Dorsalgia, unspecified Coding Level of Care Code Est Pt Level 4 (80524) Est Pt Prev Care 40-64y(10102) Diagnoses Encounter for general adult medical examination with abnormal findings Z00.01 Shoulder blade pain M89.8X1 Diabetes 1.5, managed as type 2 E13.9 Other iron deficiency anemia D50.8 Anemia type: iron deficiency Iron deficiency anemia type: other iron deficiency Crohn's disease of large intestine without complication K50.10 Digestive disease complication type: without complication Gastrointestinal tract location: large intestine Rheumatoid arthritis of other site, unspecified whether rheumatoid factor present M06.9 Rheumatoid arthritis location: other site Rheumatoid factor presence: unspecified presence Secondary biliary cirrhosis K74.4 Hepatic cirrhosis type: secondary biliary cirrhosis Additional Codes NAV-7 Assessment Billing - NAV-7 Assessment Tool: NAV-7 Assessment [id number] ([id number])
== END 2023-10-07 14:58 | disposition home or self-care (01) ==
PROVIDERS: PCP Internal Medicine; Visit Provider Internal Medicine
DX: Z00.00 Encounter for general adult medical examination without abnormal findings (principal); E13.9 Other specified diabetes mellitus without complications; K50.10 Crohn's disease of large intestine without complications; K74.4 Secondary biliary cirrhosis; M06.9 Rheumatoid arthritis, unspecified; M89.8X1 Other specified disorders of bone, shoulder; D50.8 Other iron deficiency anemias
CPT/HCPCS: 83036; 99214; 99396

== ENCOUNTER 2023-10-14 07:22 | Day surgery (SDC) | payer OTHER, SELFPAY ==
--- NOTE | ~2023-10-14 | US_ITS ---
EXAMINATION: US ABDOMEN LIMITED CLINICAL INFORMATION: Other ascites. COMPARISON: CT abdomen 10/04/2023. Ultrasound abdomen 10/26/2022 and 05/24/2022. TECHNIQUE: Real-time imaging of all quadrants of the abdomen. FINDINGS: Targeted ultrasound images were obtained by the drywall applicator of the areas of concern in the 4 quadrants of the abdomen to evaluate specifically for ascites. No free fluid was appreciated. Limited visualization due to bowel gas. Examination was supervised by NORBERTO Draper. Radiologist was not in attendance. Images were later provided for interpretation. US/US abdomen limited IMPRESSION: No free fluid was appreciated in the 4 quadrants of the abdomen. Electronically signed by: Lilia Cui MD 10/19/2023 10:57 AM EDT
[2023-10-14 09:04] VITALS: BP 104/59; PULSE 69; RESP 18; TEMP 36.7; O2SAT 100
[2023-10-14 09:12] VITALS: BMI 28.3
--- NOTE | 2023-10-14 09:16 | PC.NURSE ---
Preop admission completed by Charissa Guidry. Left chest port a cath accessed by Emir Crespo RN with good results as ordered by Rishi THORNTON.
--- NOTE | 2023-10-14 10:08 | PC.NURSE ---
Patient arrived to PACU 0940 accompanied by special procedure nurse [place]. Patient had ZERO anesthesia as procedure was not needed per Enio Liz Draper. Patient's port was flushed per protocol and de-access'd. Pressure held at sit for 20 seconds. No bleeding noted. Band-aid applied. Patient utilized [facility] facilities after dressing herself. Ride was called to return for pickup. Patient escorted to [facility] waiting room as she thought her ride might be there.
== END 2023-10-14 10:05 | disposition home or self-care (01) ==
LOC: HO.SSS 07:24
PROVIDERS: Physician Assistant Surgical; PCP Internal Medicine; Visit Provider Internal Medicine
DX: R18.8 Other ascites (principal); Z53.8 Procedure and treatment not carried out for other reasons
CPT/HCPCS: 76705; J1642

== ENCOUNTER 2023-11-09 11:34 | Outpatient (AMB) | payer OTHER, SELFPAY ==
[2023-11-09 11:38] VITALS: BP 97/72; PULSE 91; BMI 28.4
--- NOTE | 2023-11-09 11:38 | A.OFFVIS_ITS ---
Vital Signs 11/09/23 11:38 Height 5 ft 4 in Weight 165 lb 5.547 oz BMI 28.4 BP 97/72 Blood Pressure Location Lt brachial Position Sitting Pulse 91 Intake Visit Reasons: ED follow up Paracentesis Intake Note: Beata presents in the office as a ED follow up paracentesis. CC: States she had no fluid in her last para but she has pains in the back almost glank region. No irregular bowel movements. States she is also urinating just fine. [place] Nibs Inspector Required: No Allergies ciprofloxacin [Cipro] Allergy (Unknown, Verified 03/19/24 09:30) swelling of the throat , hives nitrofurantoin [From Macrobid] Adverse Reaction (Verified 03/19/24 09:30) Liver cirrhosis decompensation HPI Comments Details: This is a 51y.o female with past medical history of HCV (s/p SVR 2014) that led to liver cirrhosis, complicated by portal hypertension with ascites, small bowel Crohn's disease dx in 1994 (s/p ileocecectomy 1994, partial small bowel resection 1996, small bowel stricturoplasty 1998) currently not on any meds, who presents to our office for follow up. 05/10/22: Referred by Dr Ortiz for ERNA. Prev pt of Dr Bryant. Main complaints today are fatigue, loss of energy, hair loss. To recap, pt had hx of Hep C contracted through IVDU. Underwent treatment with Sovaldi and Ribavirin x 2014 (Dr Waterman, [facility]) with reported SVR. She is unable to recall when she was diagnosed with cirrhosis but tells me that she had been seeing Dr Bryant for it x many years. Documentation from 2020 reports ascites on imaging and pt was started on aldactone 50 however she does not remember being on any meds. Last imaging: last ultrasound and CT 04/2021: Ascites. Cirrhotic liver. Last endoscopy: Per pt done in 2019 for crohns, and variceal screening and was overall normal. No records available. In terms of her worsening anemia, initially had a drop in counts in April 2021 when she admitted for E coli sepsis and C Diff and at that time attributed to inflammatory anemia. Since then has been seeing [employer] Project [employer] as outpatient. Started on IV infusions but with less than expected response. Then Hb dropped again to 6.8-7 earlier this year. Pt reports no gastrointestinal complaints to include abd pain, N,V, D. No blood in stool or melena. No changes in appetite. Does not report unintentional weight loss. Pt also has hx of Crohns as above however reports endoscopic remission since her bowel surgeries in as above. Has not taken any meds for it. Last flare requiring pred was . Fam hx: mother and mat aunt: Crohns. Grandfather: etOH related cirrhosis. Correspondence: On 05/27/22 @ 09:06 Romana Garcia Wrote To David Ortiz (2) Mandy Could we pls look into why the pt canceled her procedures? These were booked as urgent due to anemia and cirrhosis. Kindly rebook at the earliest, can be with any provider with availability. And pls educate the pt on importance to keep the appt. CC: PCP as an FYI. 08/06/22: Admission to the hospital on 07/28 for nausea, vomiting and shortness of breath, was found to have large right-sided pleural effusion for which she had thoracostomy tube placement. She received pain medication following which she became very lethargic and had an aspiration event. She was subsequently intubated and then transferred to [facility] due to lack of ICU bed at [facility] or nearby hospitals. At age 2 cc, she was managed for aspiration pneumonia as well as pleural effusion. Chest tube was removed 07/30. Pleural effusion suggestive of hepatic hydrothorax. Once she was extubated and was on 3 L O2, she was transferred to regular floor, however she then left AMA on 08/01. Today, scheduled for a video visit. Reports worsening of shortness of breath over the last 2 days, has also noticed decrease in urine output in the same time. No nausea, vomiting, diarrhea. No chest pain or abdominal pain. She does report taking furosemide 40 mg daily. 08/18/22: Presenting for in person follow up after another ER visit 08/09/22. Went in for concern of decreased urine output. Was found to have normal kidney function but worsening R sided pleural effusion. Does not appear pt underwent thoracentesis or adjustment in her diuretics at that time. Today, coming in with her mom. Pt seated in a wheelchair. Describes compliance with furosemide 40 and low salt diet. Postponed her EGD/colo (initially scheduled for 08/12/22) as wasnt sure if she should be drinking golytely prep. Pt and mom have questions re shunt or drain placement for pleural effusion. 09/17/22: Reports feeling much better in terms of her abd distention and shortness of breath since increasing diuretics from last visit. Has been able to return to work due to better energy levels. Does report intolerance with Spironolactone - gets severe abd pain and nausea with Darrell. Did discontinue it for a few days but got same symptoms on rechallenge. Has icnreased lasix to 80 therefore, instead of 60, as she is not taking spirinolactone. Reports tried to reach our office for further instructions on CXR but could not get through - no correspondence in chart re her phone call however. 10/26/22-11/04/22: Hospitalised for worsening anemia noted on labs done pre-procedure to port placement. 10/27/22 EGD/colo: 1. Esophageal varices (banding) 2. Portal hypertensive gastropathy 3. Normal duodenum 4. Poor prep 5. No active bleeding 6. Internal and external hemorrhoids Path: A. Duodenum, biopsy: Duodenal mucosa within normal limits; preserved villous architecture and no increased intraepithelial lymphocytes seen. B. Stomach, random, biopsy: Gastric antral and body mucosa within normal limits; negative for Helicobacter pylori, intestinal metaplasia and dysplasia. 11/15/22: Doing much better in terms of breathing. Has better energy levels. Able to cont work although taking frequent breaks for bathroom since she is on diuretics is cumbersome. Although didnt report this when she was hospitalised, pt does tell me today tjat she was frequently skipping diuretics to avoid going to the bathroom frequently and was most likely reason for rapid reaccumulation of volume overload. Currently reports good adherence to all meds as below. Furosemide 80mg/day Spironolactone 150mg/day Lactulose titrated to 2-3 BMs Carvedilol 3.125 BID (metoprolol has been discontinued) EGD and colo results reviewed that was performed in house. Pt is aware that due to poor prep, will need a repeat colo within a year. We also discussed initiating referral to [facility] for transplant evaluation which the pt is agreeable to today. She also has a port and has [facility] services which we can utilise for blood draws and diuretic monitoring. 12/13/22: Seen in office for follow up. Diuretics were adjusted after last visit due to bump in Cr noted to 1.3 from 0.9. Currently on: Furosemide 60mg/day Spironolactone 150mg/day Lactulose titrated to 2-3 BMs Carvedilol 3.125 BID Reports increase in abd girth as well as shortness of breath on moderate activity. Still able to cont day to day function but notices this was not present when she was on previous dose. Labs reviewed from today - Cr up to 1.3 again despite a lower dose of diuretics from before. Reports good compliance with salt discretion which is evidences by urine lytes as well. [facility] referral was sent out 4 weeks ago but pt is yet to hear back. Echo still pending. 02/25/23: Was seen in the interim Dr Redmond, reported borderline pressures at that time and diuretics were adjusted. Was also restarted on PO iron supplements for ERNA. 03/30/23: Here for follow up. Feeling much better than the last time she was seen. Main CC is hairfall. Otherwise from liver standpoint reports no abd pain, no abd distention, rash or fatigue. 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 Also established at [facility] and undergoing work up for transplant evaluation but reports was told has low MELD and will likely not need to be listed. Pt has not gotten Boost yet - will follow up. Otherwise weight curve reassuringly stable. Current meds: Furosemide 40mg/day Spironolactone 100mg/day Lactulose discontinued earlier this month by [facility] Carvedilol 6.25 BID Ferrous sulphate 325 mg PO daily 05/23/23: Was sg for EGD/colo on 05/02 however while pt was prepping for colo she developed severe hypoglycemia down to 29mcg/dl and passed out because of it. The neighbour who lives downstairs heard her fall and got help. Since then has been given Glucagon nasal powder. Pt reports has been getting low blood sugars in the 40-60s intermittently since Fall of 2022. Has not seen by Endocrine recently. Was seeing [facility] Endo for hypothyroidism but lost to follow up. Of note - from [facility] as part of workup for liver transplant evaluation, was recommended to get pap smear and mammo. Was seeing [facility] [employer]OS[facility] HELPER and was sg for pap smear in 2019 but seems did not make the appt. Current meds: Spironolactone 100mg/day Carvedilol 6.25 BID 07/25/23: Had blood work done on 07/[address] Jessie Mackenzie from [facility]. Cr shot up to 1.78. Was advised to cut down both diuretics to Lasix 20 BID [place] 50 once daily ?? Med list a bit unclear as based on prev visit she was not on any lasix but when she went to ER on 06/01 was documented to be on lasix 20 BID which was then increased further to 40 BID by the ER provider due to significant edema. Suspect RHINA on 07/14 likely 2/2 overuse of lasix. Currently reports extreme exhaustion for the past 2 weeks. Feels thirsty all the time despite reduction in diuretics. Has also been noticing increased swelling in R sided abd. Also reports itching on legs. They also feel crampy and restless amna at night time. CT abd on 07/31 - appt with [facility] August. 10/04/23: 1. Cirrhosis of liver. No focal liver lesion. 2. Splenomegaly. 3. Small to moderate volume of abdominal ascites. 4. Recannulated umbilical vein. Prominent veins in the subcutaneous tissue of the abdominal wall consistent with portal hypertension. 11/09/23: Here for follow up. Reports good response to diuretics. Did not have any fluid to tap at the last para. Main complaint is back pain which is severe. Mid upper back. Sometimes catches her mid breath. Does not remember any trauma. 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 Other Mental health disorder Substance use disorder Social History Household Members: None Housing: Apartment Are you a primary care taker to a significant other at home: No Do you presently have visiting nurse or other home services: No Unable to assess alcohol history related to: Unknown Alcohol intake: never Patient Tobacco Use Status: Never used Tobacco Tobacco use type: Cigarette Cigarettes Per Day: 5 Years Smoked: 17 years old e-Cigarette/Vaping Use: Never Used Substance Use Type: Heroin service: No Current occupational status: employed Cognitive needs: No Hearing needs: No Vision needs: No Physical Exam Vital Signs: Last Vital Signs Pulse 91 11/09/23 11:38 BP 97/72 11/09/23 11:38 BMI result Body Mass Index 28.4 No acute distress No icterus No overt respiratory distress Spine pin point tenderness over thoracic spine T4-T6 area with pain worse on extension Abdomen soft, nontender, nondistended No asterixis Results Reviewed Results Reviewed: Laboratory Tests 10/06/23 15:06 BUN 17 H Creatinine 1.69 H Assessment & Plan Assessment & Plan (1) Liver cirrhosis: Code(s): K74.60 - Unspecified cirrhosis of liver Category: Medical Qualifiers: Hepatic cirrhosis type: secondary biliary cirrhosis Qualified Code(s): K74.4 - Secondary biliary cirrhosis (2) Mid back pain: Code(s): M54.9 - Dorsalgia, unspecified Category: Medical (3) Iron deficiency anemia: Code(s): D50.9 - Iron deficiency anemia, unspecified Category: Medical Qualifiers: Iron deficiency anemia type: chronic blood loss Qualified Code(s): D50.0 - Iron deficiency anemia secondary to blood loss (chronic) (4) Crohn's disease: Code(s): K50.90 - Crohn's disease, unspecified, without complications Category: Medical Qualifiers: Digestive disease complication type: without complication Gastrointestinal tract location: large intestine Qualified Code(s): K50.10 - Crohn's disease of large intestine without complications (5) Sarcopenia: Code(s): M62.84 - Sarcopenia Category: Medical Plan 1. Decomp cirrhosis: - Likely secondary to HCV (treated) + VIDES - Meld sodium 19 - ascites and covert HE Good response to diuretics. No ascites on exam or on imaging. Will cont same dose. Due for recheck BMP. HE improved. Plan: - Cont Lasix 40 BID and darrell 100 mg. Likely needs lower dose of lasix but will await BMP - CBC, CMP to be checked today - HCC screening - no focal lesion on contrasted CT 09/2023. Next screening due Mar 2024. - Cont Carvedilol 6.25 BID for primary variceal bleeding prophylaxis. - Cont Rifaximin 550 BID 2. Thoracic spine pain and tenderness Will get a plain film to r/o fracture: Plan: - XR thoracic spine ordered 3. ERNA: Was scheduled for EGD/colo April 2023, but due to severe hypoglycemia, was not able to proceed with this. This will be rebooked, after patient has been seen by digital product specialist and has had workup done as patient quite hesitant to be NPO at home. Plan: - CHeck CBC today - EGD/colo to be rebooked after pt seen by endocrine Follow up 2 months Orders: Orders UA and rflx microscopic 11/16/23 R10.9 - Unspecified abdominal pain XR thoracic spine 2V 11/09/23 M54.9 - Dorsalgia, unspecified Medications: New peg 3350-electrolytes 236-22.74-6.74 -5.86 gram (Golytely) as per split prep instructions, until fecal effluent is clear 240 mL PO Q10M 4,000 mL 0RF colonoscopy Coding Level of Care Code Est Pt Level 4 (00063) Diagnoses Secondary biliary cirrhosis K74.4 Hepatic cirrhosis type: secondary biliary cirrhosis Mid back pain M54.9 Iron deficiency anemia due to chronic blood loss D50.0 Iron deficiency anemia type: chronic blood loss Crohn's disease of large intestine without complication K50.10 Digestive disease complication type: without complication Gastrointestinal tract location: large intestine Sarcopenia M62.84
== END 2023-11-09 12:31 | disposition home or self-care (01) ==
PROVIDERS: PCP Internal Medicine; Visit Provider Internal Medicine
DX: K74.4 Secondary biliary cirrhosis (principal); M54.9 Dorsalgia, unspecified; D50.0 Iron deficiency anemia secondary to blood loss (chronic); K50.10 Crohn's disease of large intestine without complications; M62.84 Sarcopenia
CPT/HCPCS: 99499

== ENCOUNTER 2023-11-09 11:34 | Outpatient (REF) | payer OTHER, SELFPAY ==
--- NOTE | ~2023-11-09 | XR_ITS ---
EXAMINATION: XR THORACIC SPINE CLINICAL INFORMATION: M54.9 - Dorsalgia, unspecified COMPARISON: . CT of the chest 10/04/2023. No prior thoracic x-rays. TECHNIQUE: 3 views of the thoracic spine were obtained. Exam is submitted for interpretation 01/17/2024. FINDINGS: Left chest port in place with tip in the right atrium. Sclerosis of T6 with a moderate inferior endplate compression deformity, approximately 50% loss of height ventrally. Given appearance, pathologic fracture not excluded. There may be a small amount of retropulsion of bone at the inferior aspect although this is difficult to ascertain on plain film. This was not present on CT of the chest 10/04/2023 and is presumably acute/subacute. Prominent Schmorl's node in the superior endplate of T11. No additional compression deformities or focal bony abnormalities. Normal bone mineralization. There is a very mild right convex scoliosis, apex at T6.. Normal kyphosis. No subluxations. Mild diffuse disc space narrowing noted. XR/XR thoracic spine 2V IMPRESSION: 1. Approximately 50% compression deformity of T6, new from 10/04/2023. This may be acute or subacute. Sclerosis of the underlying bone may suggest pathologic fracture. Recommend MRI. 2. No additional fractures or acute bony abnormalities. 3. Gentle right convex scoliosis, and mild degenerative disc disease throughout. Electronically signed by: Davidson Mi MD 01/17/2024 09:18 AM [facility]
--- NOTE | ~2023-11-09 | XR_ITS ---
EXAMINATION: XR CHEST CLINICAL INFORMATION: J90 - Pleural effusion, not elsewhere classified COMPARISON: None available. TECHNIQUE: 2 views of the chest were obtained. FINDINGS: Left-sided chest port in place with tip extending into the right atrium. This is well positioned and unchanged. The cardiac, hilar, and mediastinal contours are normal. The lungs are clear bilaterally. There is no pneumothorax or pleural effusion. There is no focal osseous or soft tissue abnormality. XR/XR chest 2V IMPRESSION: 1. No active pulmonary disease. 2. Stable left chest port. Electronically signed by: Davidson Mi MD 01/16/2024 01:44 PM [facility]
[2023-11-09 13:44] LABS: Appearance Urine Clear; Color Urine Dark Yellow; Glucose Urine UA Negative (Negative); Leukocyte Esterase Urine Trace (Negative); Nitrite Urine Negative (Negative); PH 5.5 (5.0-9.0); Specific Gravity - Urine 1.015 (1.005-1.025); UMIC TRIGGER UA YES; Urine Blood Negative (Negative); Urine Ketones Negative (Negative); Urine Protein Negative (Neg-Trace)
[2023-11-09 13:45] LABS: INTERNATIONAL NORM RATIO 2.3 (0.9-1.1); Prothrombin Time 26.4 SEC (10.9-12.4)
[2023-11-09 13:46] LABS: Hematocrit 22.7 % (37.0-47.0); Mean Corpuscular HGB Conc 30.8 g/dl (31.0-35.0); Mean Corpuscular Hemoglobin 29.8 pg (27.0-33.0); Mean Corpuscular Volume 96.6 fL (80.0-98.0); Mean Platelet Volume 11.4 fL (9.4-12.3); Red Blood Count 2.35 X10*6/uL (4.20-5.50); Red Cell Distribution Width 18.2 % (11.0-16.0); White Blood Count 4.8 X10*3/uL (4.8-10.8)
[2023-11-09 14:06] LABS: Bacteria Urine None Seen (None Seen); RBC Urine 0-2 /HPF (0-2); Squamous Epithelial Cell Urine 0-2 /HPF (0-2); WBC Urine 0-5 /HPF (0-5)
[2023-11-09 14:18] LABS: Platelet Count 87 X10*3/uL (160-400)
[2023-11-09 14:42] LABS: Alanine Aminotransferase 11 U/L (0-31); Albumin Level 2.7 g/dL (3.5-5.0); Alkaline Phosphatase 91 U/L (39-117); Anion Gap 14 (12-20); Aspartate Amino Transferase 18 U/L (5-31); Blood Urea Nitrogen 31 mg/dL (9-16); Calcium 8.5 mg/dL (8.4-10.2); Carbon Dioxide 27 mmol/L (22-29); Chloride 104 mmol/L (96-108); Estimated Glomerular Filt Rate 21; Glucose Random 150 mg/dL (60-115); Potassium 4.4 mmol/L (3.3-5.1); Sodium 141 mmol/L (135-145); Total Protein 5.7 g/dL (6.5-8.0)
== END 2023-11-09 11:35 | disposition home or self-care (01) ==
LOC: HO.XRAY 11:34
PROVIDERS: PCP Internal Medicine; Visit Provider Internal Medicine
DX: N17.9 Acute kidney failure, unspecified (principal); K74.4 Secondary biliary cirrhosis; D50.0 Iron deficiency anemia secondary to blood loss (chronic); K50.10 Crohn's disease of large intestine without complications; M62.84 Sarcopenia; R10.9 Unspecified abdominal pain; M54.9 Dorsalgia, unspecified; J90 Pleural effusion, not elsewhere classified
CPT/HCPCS: 36415; 71046; 72070; 80053; 81001; 85027; 85610

== ENCOUNTER → 2023-11-09 13:21 | Outpatient (BNV) | payer OTHER, SELFPAY | PROVIDERS: PCP Internal Medicine; Visit Provider Radiology Diagnostic Radiology | DX: M54.9 Dorsalgia, unspecified (principal) | CPT/HCPCS: 71046; 72070 ==

== ENCOUNTER 2023-11-16 14:49 | Outpatient (REF) | payer MEDICARE, MEDICAID, SELFPAY ==
[2023-11-16 15:52] LABS: Mean Corpuscular HGB Conc 29.4 g/dl (31.0-35.0); Mean Corpuscular Hemoglobin 29.1 pg (27.0-33.0); Mean Platelet Volume 11.5 fL (9.4-12.3); Red Blood Count 2.03 X10*6/uL (4.20-5.50); Red Cell Distribution Width 17.6 % (11.0-16.0); White Blood Count 5.4 X10*3/uL (4.8-10.8)
[2023-11-16 15:59] LABS: Platelet Count 90 X10*3/uL (160-400)
[2023-11-16 16:02] LABS: Hematocrit 20.1 % (37.0-47.0); Hemoglobin 5.9 g/dl (12.0-16.0)
[2023-11-16 16:03] LABS: Anion Gap 12 (12-20); Blood Urea Nitrogen 30 mg/dL (9-16); Calcium 8.1 mg/dL (8.4-10.2); Carbon Dioxide 22 mmol/L (22-29); Chloride 106 mmol/L (96-108); Estimated Glomerular Filt Rate 26; Glucose Random 229 mg/dL (60-115); Sodium 136 mmol/L (135-145)
[2023-11-16 16:46] LABS: Appearance Urine Clear; Color Urine Yellow; Glucose Urine UA Negative (Negative); Leukocyte Esterase Urine Small (1+) (Negative); Nitrite Urine Negative (Negative); PH 5.5 (5.0-9.0); Specific Gravity - Urine 1.015 (1.005-1.025); UMIC TRIGGER UA YES; Urine Blood Negative (Negative); Urine Ketones Negative (Negative); Urine Protein Negative (Neg-Trace)
[2023-11-16 16:54] LABS: Prothrombin Time 195.1 SEC (10.9-12.4)
[2023-11-16 17:26] LABS: Bacteria Urine Trace (None Seen); RBC Urine 0-2 /HPF (0-2); WBC Urine 0-5 /HPF (0-5)
[2023-11-16 17:44] LABS: INTERNATIONAL NORM RATIO 16.7 (0.9-1.1)
== END 2023-11-16 14:50 | disposition home or self-care (01) ==
LOC: HO.LAB 14:49
PROVIDERS: Visit Provider Internal Medicine
DX: R18.8 Other ascites (principal); K74.4 Secondary biliary cirrhosis
CPT/HCPCS: 36415; 80048; 81001; 85027; 85610

== ENCOUNTER 2023-11-18 08:18 | Outpatient (REF) | payer MEDICARE, MEDICAID, SELFPAY ==
--- NOTE | ~2023-11-18 | US_ITS ---
EXAMINATION: US ABDOMEN LIMITED CLINICAL INFORMATION: Ascites. COMPARISON: 10/14/2023 TECHNIQUE: Real-time imaging of all quadrants of the abdomen. FINDINGS: Examination demonstrates a small amount of ascites in all 4 quadrants. Nodular hepatic contour and heterogeneous hepatic parenchymal echotexture consistent with hepatic cirrhosis. Enlarged spleen measuring 17.6 cm, consistent with portal hypertension. US/US abdomen limited IMPRESSION: Findings as above. Electronically signed by: Faustino Forrester MD 11/18/2023 11:16 AM EDT
== END 2023-11-18 08:19 | disposition home or self-care (01) ==
LOC: HO.US 08:18
PROVIDERS: PCP Internal Medicine; Visit Provider Internal Medicine
DX: R18.8 Other ascites (principal)
CPT/HCPCS: 76705

== ENCOUNTER 2023-11-21 18:06 | Inpatient (IN) | payer MEDICARE, MEDICAID, SELFPAY ==
--- NOTE | ~2023-11-21 | CT_ITS ---
EXAMINATION: CT ABDOMEN AND PELVIS WITHOUT IV CONTRAST CLINICAL INFORMATION: Small bowel obstruction, spontaneous bacterial peritonitis COMPARISON: Abdominal ultrasound November 18, 2023, CT abdomen October 04, 2023 TECHNIQUE: Multiple axial images were obtained from the superior aspect of the liver through the pubic symphysis without intravenous contrast. Images were evaluated on independent dedicated 3-D workstation and 3-D images were reconstructed with concurrent radiologist supervision and subsequently interpreted. Oral contrast was not administered. This CT examination was performed using dose optimization techniques as appropriate, variously including the following: *Automated exposure control *Adjustment of mA and/or kV according to patient size (this includes techniques or standardized protocols for targeted exams where dose is matched to indication/reason for exam; i.e. extremities or head) *Use of iterative reconstruction technique DLP: 1410 mGy-cm FINDINGS: LUNG BASES: Basilar atelectatic changes. CARDIOMEDIASTINUM: The visualized heart is normal in size without pericardial effusion. No coronary artery calcification. LIVER: Contracted and nodular in contour consistent with cirrhosis. GALLBLADDER: Poorly evaluated. BILIARY SYSTEM: No intrahepatic or extrahepatic biliary dilation. PANCREAS: Homogeneous in attenuation. SPLEEN: Enlarged measuring 18 cm in the midclavicular line. GENITOURINARY: No contour deforming masses. No perinephric fluid collection. Right lower pole 3 mm nonobstructing calculus. No hydroureteronephrosis. ADRENAL GLANDS: Unremarkable. REPRODUCTIVE: Uterus absent. No solid adnexal masses. GASTROINTESTINAL: The visualized alimentary tract is normal in course. Diffuse low-grade colonic bowel wall thickening. No evidence of obstruction. PERITONEUM: Small volume abdominopelvic ascites. Mesenteric congestion. No peritoneal thickening. VASCULATURE: No abdominal aortic aneurysm. LYMPH NODES: No pathologically enlarged abdominal or pelvic lymph nodes. SOFT TISSUES/MUSCULOSKELETAL: Generalized anasarca. Right anterior abdominal wall mesh intact without dehiscence. There is no acute fracture or significant focal osseous lesion. CT/CT abdomen pelvis wo IV con IMPRESSION: 1. Cirrhosis and splenomegaly with small volume abdominopelvic ascites. Spontaneous bacterial peritonitis not excluded on this nonenhanced study. 2. Right lower pole nonobstructing 3 mm renal calculus. 3. No evidence of small bowel obstruction. 4. Diffuse low-grade colonic bowel wall thickening, which is an equivocal finding in the presence of generalized anasarca and abdominal pelvic ascites, especially given the lack of intravenous contrast. Fleischner guidelines were followed. Electronically signed by: Clovis Garza DO 11/21/2023 09:49 PM EDT RP
--- NOTE | ~2023-11-21 | US_ITS ---
ULTRASOUND DIAGNOSTIC PARACENTESIS History: Ascites. Abdominal pain, diagnostic drainage Risks and benefits and possible complications were discussed with the patient and consent form was signed. A safe pocket of perihepatic ascites was identified using ultrasound guidance, and the overlying skin was marked. The abdomen prepped and draped in sterile fashion. 1% lidocaine was used as a local anesthetic. Using ultrasound guidance, a 22-gauge spinal needle was placed into the ascitic pocket. 40 cc of yellow fluid was aspirated and sent for analysis. The needle was then removed. A few manufacturer's representative images from before and after the examination were obtained. The procedure was performed by Rishi Draper PA-C and supervised by Dr. Mi. US/US paracentesis abd w/image IMPRESSION: Ultrasound-guided diagnostic paracentesis as described above. No immediate complications Electronically signed by: Davidson Mi MD 11/23/2023 12:54 PM EDT
--- NOTE | 2023-11-21 18:09 | ED.ABDPAIN ---
HPI - Abdominal Pain General Chief Complaint: Recheck/Abnormal Lab/Rx Stated Complaint: abd pain and distension, awaiting liver transplant Time Seen by Provider: 11/21/23 19:11 Source: patient Limitations: no limitations History of Present Illness ED Provider: Tona guzmán PA-C HPI narrative: 53 y/o F with hx of hepatitis C cirrhosis on the liver transplant list, portal hypertension with ascites, small bowel Crohn's disease, hx hepatic hydrothorax s/p chest tube (complicated by intubation), hx COPD, anemia, hypothyroidism, DM presents with severe abdominal pain x 1 week. Pain is generalized severe, patient unable to describe the nature of her discomfort. Associated poor p.o. intake, abdominal distention, objective fevers at home and constipation, last bowel movement was 2 days ago. Patient was instructed by her specialist who come to the emergency department for admission. Related Data Home Medications ?Medication ?Instructions ?Recorded ?Confirmed methadone 10 mg/mL oral concentrate 76 mg PO DAILY 05/04/21 10/07/23 multivitamin 1 tab PO DAILY 07/28/22 10/07/23 fluticasone propionate 50 1 spray intranasal DAILY PRN 10/26/22 10/07/23 mcg/actuation nasal Allergy Symptoms spray,suspension (Flonase Allergy Relief) Previous Rx's ?Medication ?Instructions ?Recorded albuterol sulfate 90 mcg/actuation 2 puff inhalation Q4-6H PRN 11/05/22 aerosol inhaler shortness of breath or wheezing #1 ea ferrous sulfate 324 mg (65 mg 324 mg PO DAILY 90 days #90 tabs 02/17/23 iron) tablet,delayed release omeprazole 20 mg capsule,delayed 20 mg PO BEDTIME #90 caps 06/23/23 release rifaximin 550 mg tablet 550 mg PO BID 90 days #180 tabs 07/25/23 acyclovir 400 mg tablet 400 mg PO BEDTIME #90 tabs 08/29/23 carvedilol 6.25 mg tablet 6.25 mg PO BID #180 tabs 09/05/23 lidocaine 5 % topical patch 1 patch topical DAILY 30 days #30 10/06/23 (Lidoderm) ea cyclobenzaprine 5 mg tablet 5 mg PO BEDTIME 30 days #30 tabs 10/07/23 furosemide 20 mg tablet 40 mg PO DAILY 90 days #180 tabs 10/07/23 spironolactone 50 mg tablet 100 mg (2 x 50 mg) PO ONCE 90 days 10/07/23 (Aldactone) #180 tabs levothyroxine 50 mcg tablet 50 mcg PO DAILY@0600 #90 tabs 10/27/23 ondansetron 4 mg disintegrating 4 mg PO Q8H PRN for 10/27/23 tablet nausea/vomiting 30 days #10 tabs peg 3350-electrolytes 236 240 ml PO Q10M colonoscopy #4,000 11/09/23 gram-22.74 gram-6.74 gram-5.86 mL gram solution (Golytely) Allergies Allergy/AdvReac Type Severity Reaction Status Date / Time ciprofloxacin [Cipro] Allergy Unknown swelling Verified 11/21/23 18:12 of the throat , hives nitrofurantoin AdvReac Liver Verified 11/21/23 18:12 [From Macrobid] cirrhosis decompensation Review of Systems Review of Systems Yes all other systems are reviewed and are negative Constitutional: Reports fever(s) and Reports poor appetite Cardiovascular: Denies chest pain and Denies dyspnea Respiratory: Denies cough and Denies dyspnea Gastrointestinal: Reports abdominal pain PMFSH Past Medical History Attestation statement: The following information was validated with the patient. 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 Other Mental health disorder Substance use disorder Social History Social History Household Members: None Housing: Apartment Are you a primary caregiver assisted living to a significant other at home: No Do you presently have visiting nurse or other home services: No Unable to assess alcohol history related to: Unknown Alcohol intake: never Patient Tobacco Use Status: Current everyday Tobacco user Tobacco use type: Cigarette Cigarettes Per Day: 4 Years Smoked: 17 years old Smoked in Last 30 Days: No e-Cigarette/Vaping Use: Never Used Use of substances other than those prescribed or required for medical reasons: Unknown Advance Directives: No Advance Directives Information Provided: No Do you have a plan to hurt others: No Plan Patient : No service: No Current occupational status: employed Cognitive needs: No Hearing needs: No Vision needs: No Physical Exam ED Vital Signs: Vital Signs - 24 hr 11/21/23 18:11 11/21/23 19:40 11/21/23 20:42 Temperature 98.4 F 99.4 F Pulse Rate 103 H 87 87 Respiratory Rate 19 18 13 Blood Pressure 129/57 L 113/65 105/54 L Pulse Oximetry 98 98 99 Oxygen Delivery Method Room Air Room Air Room Air BMI result Body Mass Index 31.3 Const Other: Awake, ill in appearance, appears older than stated age Orientation/consciousness: patient oriented x3 HENMT Other: Dry oral mucosa Resp Effort & Inspection: normal respiratory effort Cardio Other: Normal peripheral perfusion GI Other: Abdomen is soft, distended, general tenderness to palpation with guarding at times that is involuntary Skin Other: Dry, warm, jaundice Neuro General: patient oriented x3, no focal motor deficits and CN's II-XI intact bilaterally Psych Other: Cooperative, anxious Course Course Course Narrative: This is a Rapid Medical Examination (RME) performed by Bryce Huffman PA-C in triage. Full HPI, ROS, assessment and treatment plan per primary provider in the Main ED. 53-year-old female with a history of hepatitis C cirrhosis on the liver transplant list, portal hypertension with ascites, small bowel Crohn's disease, hx hepatic hydrothorax s/p chest tube (complicated by intubation), hx COPD, anemia, hypothyroidism, DM who presents to the ER for severe abdominal pain, poor PO intake, fever 101 at home for the last 1 week. last BM 2 days ago and having to take laxatives. Had labs 5 days ago and just heard from Dr. Choudhury, told she needed to see Dr. Patel for iron. H/H 07/03 on Nov 15. Spoke w/ Dr. Garcia today who told her to come to the ER for admission afebrile in triage. jaundiced. tachycardic low 100s with stable BP. Plan: labs, will require admission Medical Decision Making Medical Decision Making MDM Narrative: 53 y/o F with hx of hepatitis C cirrhosis on the liver transplant list, portal hypertension with ascites, small bowel Crohn's disease, hx hepatic hydrothorax s/p chest tube (complicated by intubation), hx COPD, anemia, hypothyroidism, DM presents with severe abdominal pain x 1 week. Pain is generalized severe, patient unable to describe the nature of her discomfort. Associated poor p.o. intake, abdominal distention, objective fevers at home and constipation, last bowel movement was 2 days ago. Patient was instructed by her specialist who come to the emergency department for admission. Problem: End-stage liver disease, diabetes, anemia History: Per patient I have considered the following differential diagnoses: S BP, SBO, failure to thrive, anemia, electrolyte abnormalities, cholangitis, sepsis Plan: We will be ordering a CT scan, screening labs including LFTs have already been ordered. Obtaining coags and a type and screen as we already know she will likely be anemic. We will be giving pain medicine, and antiemetic. One CT scan back, if there is a viable pocket of ascites, I will obtain a diagnostic tap to rule out SBP. Also considering sepsis, she is tachycardic and febrile, blood cultures and lactic we will be obtained. Her pressures are stable, she does not need the weight based 30 mL/kg IV fluid resuscitation, we will order a 500 mL bolus. Antibiotics ordered as well I have independently reviewed the following tests: Labs: Critical anemia H&H of, 5.1 and 17 respectively, ordering blood product, , pancytopenia noted, creatinine 2.12, no new elevation in LFTs, albumin 2.3, lipase 54, ammonia 64 CT abdomen and pelvis:CT ABDOMEN AND PELVIS WITHOUT IV CONTRAST CLINICAL INFORMATION: Small bowel obstruction, spontaneous bacterial peritonitis COMPARISON: Abdominal ultrasound November 18, 2023, CT abdomen October 04, 2023 TECHNIQUE: Multiple axial images were obtained from the superior aspect of the liver through the pubic symphysis without intravenous contrast. Images were evaluated on independent dedicated 3-D workstation and 3-D images were reconstructed with concurrent radiologist supervision and subsequently interpreted. Oral contrast was not administered. This CT examination was performed using dose optimization techniques as appropriate, variously including the following: *Automated exposure control *Adjustment of mA and/or kV according to patient size (this includes techniques or standardized protocols for targeted exams where dose is matched to indication/reason for exam; i.e. extremities or head) *Use of iterative reconstruction technique DLP: 1410 mGy-cm FINDINGS: LUNG BASES: Basilar atelectatic changes. CARDIOMEDIASTINUM: The visualized heart is normal in size without pericardial effusion. No coronary artery calcification. LIVER: Contracted and nodular in contour consistent with cirrhosis. GALLBLADDER: Poorly evaluated. BILIARY SYSTEM: No intrahepatic or extrahepatic biliary dilation. PANCREAS: Homogeneous in attenuation. SPLEEN: Enlarged measuring 18 cm in the midclavicular line. GENITOURINARY: No contour deforming masses. No perinephric fluid collection. Right lower pole 3 mm nonobstructing calculus. No hydroureteronephrosis. ADRENAL GLANDS: Unremarkable. REPRODUCTIVE: Uterus absent. No solid adnexal masses. GASTROINTESTINAL: The visualized alimentary tract is normal in course. Diffuse low-grade colonic bowel wall thickening. No evidence of obstruction. PERITONEUM: Small volume abdominopelvic ascites. Mesenteric congestion. No peritoneal thickening. VASCULATURE: No abdominal aortic aneurysm. LYMPH NODES: No pathologically enlarged abdominal or pelvic lymph nodes. SOFT TISSUES/MUSCULOSKELETAL: Generalized anasarca. Right anterior abdominal wall mesh intact without dehiscence. There is no acute fracture or significant focal osseous lesion. CT/CT abdomen pelvis wo IV con IMPRESSION: 1. Cirrhosis and splenomegaly with small volume abdominopelvic ascites. Spontaneous bacterial peritonitis not excluded on this nonenhanced study. 2. Right lower pole nonobstructing 3 mm renal calculus. 3. No evidence of small bowel obstruction. 4. Diffuse low-grade colonic bowel wall thickening, which is an equivocal finding in the presence of generalized anasarca and abdominal pelvic ascites, especially given the lack of intravenous contrast. Fleischner guidelines were followed. Electronically signed by: Clovis Garza DO 11/21/2023 09:49 PM EDT Lab Data 11/21/23 19:25 11/21/23 19:25 Labs: Lab Results 11/21/23 11/21/23 11/21/23 Range/Units 19:23 19:25 19:34 WBC 4.1 L (4.8-10.8) X10*3/uL RBC 1.78 L (4.20-5.50) X10*6/uL Hgb 5.1 L* (12.0-16.0) g/dl Hct 17.0 L* (37.0-47.0) % MCV 95.5 (80.0-98.0) fL MCH 28.7 (27.0-33.0) pg MCHC 30.0 L (31.0-35.0) g/dl RDW 17.0 H (11.0-16.0) % Plt Count 80 L (160-400) X10*3/uL MPV 11.5 (9.4-12.3) fL Immature Gran % (Auto) 0.5 H (0.0-0.4) % Neut % (Auto) 76.3 H (45-73) % Lymph % (Auto) 10.0 L (20-40) % [place] % (Auto) 11.5 H (2-11) % Eos % (Auto) 1.5 (0-4) % Baso % (Auto) 0.2 (0-2) % Lymph # (Auto) 0.4 L (1.2-4.9) X10*3/uL [place] # (Auto) 0.5 (0.1-1.2) X10*3/uL Eos # (Auto) 0.1 (0.0-0.4) X10*3/uL Baso # (Auto) 0.0 (0.0-0.2) X10*3/uL Abs Immat Gran (auto) 0.02 (0.00-0.03) X10*3/uL Absolute Neuts (auto) 3.1 (2.0-8.3) x10*3/uL Absolute Nucleated RBC 0.000 (0.0-0.012) X10*3/uL Nucleated RBC % (auto) 0.0 (0.0-0.2) /100WBC Hold Purple Top PT 30.8 H D (10.9-12.4) SEC INR 2.6 H D (0.9-1.1) APTT 23.3 L (26.0-36.8) SEC Sodium 138 (135-145) mmol/L Potassium 4.2 (3.3-5.1) mmol/L Chloride 107 (96-108) mmol/L Carbon Dioxide 22 (22-29) mmol/L Anion Gap 13 (12-20) BUN 25 H (9-16) mg/dL Creatinine 2.12 H (0.5-1.4) mg/dL Estim Creat Clear Calc 31.9 Estimated GFR 24 Random Glucose 202 H (60-115) mg/dL Lactic Acid 1.4 (0.5-2.0) mmol/L Calcium 7.8 L (8.4-10.2) mg/dL Magnesium 1.7 (1.6-2.6) mg/dL Total Bilirubin 1.0 (0.0-1.0) mg/dL Direct Bilirubin 0.6 H (0.0-0.5) mg/dL AST 22 (5-31) U/L ALT 15 (0-31) U/L Alkaline Phosphatase 105 (39-117) U/L Ammonia (13-55) umol/L Total Protein 5.1 L (6.5-8.0) g/dL Albumin 2.3 L (3.5-5.0) g/dL Lipase 54 (8-78) U/L Urine Color Urine Appearance Urine pH (5.0-9.0) Ur Specific Moz[place] (1.005-1.025) Urine Protein (Neg-Trace) mg/dL Urine Glucose (UA) (Negative) mg/dL Urine Ketones (Negative) mg/dL Urine Blood (Negative) Urine Nitrite (Negative) Ur Leukocyte Esterase (Negative) Urine Opiates Screen (Not Detect) Ur Buprenorphine Scrn (Not Detect) ng/mL Ur Oxycodone Screen (Not Detect) ng/mL Urine Methadone Screen (Not Detect) ng/mL Urine Fentanyl Screen (Not Detect) Ur Barbiturates Screen (Not Detect) Ur Phencyclidine Scrn (Not Detect) Ur Amphetamines Screen (Not Detect) U Benzodiazepines Scrn (Not Detect) Urine Cocaine Screen (Not Detect) U Marijuana (THC) Screen (Not Detect) Influenza Type A (PCR) NEGATIVE (Negative) Influenza Type B (PCR) NEGATIVE (Negative) RSV RNA Qual (PCR) NEGATIVE (Negative) SARS-CoV-2 RNA (RT-PCR) NEGATIVE (Negative) Blood Type A Positive Antibody Screen POSITIVE Antibody Identification Anti-K Crossmatch See Detail Blood Bank Comment Technical 11/21/23 11/21/23 11/21/23 Range/Units 19:35 20:44 21:44 WBC (4.8-10.8) X10*3/uL RBC (4.20-5.50) X10*6/uL Hgb (12.0-16.0) g/dl Hct (37.0-47.0) % MCV (80.0-98.0) fL MCH (27.0-33.0) pg MCHC (31.0-35.0) g/dl RDW (11.0-16.0) % Plt Count (160-400) X10*3/uL MPV (9.4-12.3) fL Immature Gran % (Auto) (0.0-0.4) % Neut % (Auto) (45-73) % Lymph % (Auto) (20-40) % [place] % (Auto) (2-11) % Eos % (Auto) (0-4) % Baso % (Auto) (0-2) % Lymph # (Auto) (1.2-4.9) X10*3/uL [place] # (Auto) (0.1-1.2) X10*3/uL Eos # (Auto) (0.0-0.4) X10*3/uL Baso # (Auto) (0.0-0.2) X10*3/uL Abs Immat Gran (auto) (0.00-0.03) X10*3/uL Absolute Neuts (auto) (2.0-8.3) x10*3/uL Absolute Nucleated RBC (0.0-0.012) X10*3/uL Nucleated RBC % (auto) (0.0-0.2) /100WBC Hold Purple Top SEE NOTE PT (10.9-12.4) SEC INR (0.9-1.1) APTT (26.0-36.8) SEC Sodium (135-145) mmol/L Potassium (3.3-5.1) mmol/L Chloride (96-108) mmol/L Carbon Dioxide (22-29) mmol/L Anion Gap (12-20) BUN (9-16) mg/dL Creatinine (0.5-1.4) mg/dL Estim Creat Clear Calc Estimated GFR Random Glucose (60-115) mg/dL Lactic Acid (0.5-2.0) mmol/L Calcium (8.4-10.2) mg/dL Magnesium (1.6-2.6) mg/dL Total Bilirubin (0.0-1.0) mg/dL Direct Bilirubin (0.0-0.5) mg/dL AST (5-31) U/L ALT (0-31) U/L Alkaline Phosphatase (39-117) U/L Ammonia 64 H (13-55) umol/L Total Protein (6.5-8.0) g/dL Albumin (3.5-5.0) g/dL Lipase (8-78) U/L Urine Color Yellow Urine Appearance Clear Urine pH 5.5 (5.0-9.0) Ur Specific [place] 1.015 (1.005-1.025) Urine Protein Negative (Neg-Trace) mg/dL Urine Glucose (UA) Negative (Negative) mg/dL Urine Ketones Negative (Negative) mg/dL Urine Blood Negative (Negative) Urine Nitrite Negative (Negative) Ur Leukocyte Esterase Negative (Negative) Urine Opiates Screen POSITIVE H (Not Detect) Ur Buprenorphine Scrn Not Detected (Not Detect) ng/mL Ur Oxycodone Screen Not Detected (Not Detect) ng/mL Urine Methadone Screen Positive H (Not Detect) ng/mL Urine Fentanyl Screen Not Detected (Not Detect) Ur Barbiturates Screen Not Detected (Not Detect) Ur Phencyclidine Scrn Not Detected (Not Detect) Ur Amphetamines Screen Not Detected (Not Detect) U Benzodiazepines Scrn Not Detected (Not Detect) Urine Cocaine Screen Not Detected (Not Detect) U Marijuana (THC) Screen Not Detected (Not Detect) Influenza Type A (PCR) (Negative) Influenza Type B (PCR) (Negative) RSV RNA Qual (PCR) (Negative) SARS-CoV-2 RNA (RT-PCR) (Negative) Blood Type Antibody Screen Antibody Identification Crossmatch Blood Bank Comment Medications Administered Generic Name Dose Route Start Last Admin Trade Name Freq PRN Reason Stop Dose Admin Hydromorphone HCl 1 mg 11/21/23 21:56 11/21/23 22:11 Hydromorphone Hcl 1 Mg/Ml Syringe IVPUSH 1 mg Q4H PRN Administration Pain, Severe (Pain Scale 7-10) Protocol Discontinued Medications Generic Name Dose Route Start Last Admin Trade Name Gayatri PRN Reason Stop Dose Admin Ceftriaxone Sodium 1 gm/ 50 mls @ 100 mls/hr 11/21/23 22:00 11/21/23 22:14 Sodium Chloride IV 100 mls/hr Q24H FLORENCIO Administration Morphine Sulfate 8 mg 11/21/23 19:29 11/21/23 19:44 Morphine Sulfate 10 Mg/Ml Cartridge IVPUSH 11/21/23 19:30 8 mg ONCE ONE Administration Protocol Octreotide Acetate 50 mcg 11/21/23 21:01 11/21/23 21:53 Octreotide Acetate 100 Mcg/Ml Ampul IVPUSH 11/21/23 21:02 50 mcg ONCE ONE Administration Ondansetron HCl 4 mg 11/21/23 19:29 11/21/23 19:44 Ondansetron Hcl 4 Mg/2 Ml Vial IVPUSH 11/21/23 19:30 4 mg ONCE ONE Administration Pantoprazole Sodium 80 mg 11/21/23 21:01 11/21/23 21:50 Pantoprazole Sodium 40 Mg/10 Ml Vial IVPUSH 11/21/23 21:02 80 mg ONCE ONE Administration Discharge Plan Discharge Clinical Impression: Peritonitis, spontaneous bacterial, RHINA (acute kidney injury), Pancytopenia Prescriptions: No Action albuterol sulfate 90 mcg/actuation HFA aerosol inhaler 2 puff inhalation Q4-6H PRN (Reason: shortness of breath or wheezing) Qty: 1 3RF ferrous sulfate 324 mg (65 mg iron) tablet,delayed release (DR/EC) 324 mg PO DAILY 90 Days Qty: 90 1RF omeprazole 20 mg capsule,delayed release(DR/EC) 20 mg PO BEDTIME Qty: 90 0RF acyclovir 400 mg tablet 400 mg PO BEDTIME Qty: 90 0RF carvedilol 6.25 mg tablet 6.25 mg PO BID Qty: 180 0RF furosemide 20 mg tablet 40 mg PO DAILY 90 Days Qty: 180 1RF Protocol: Hold for SBP< HOLD for SBP < : 90 spironolactone [Aldactone] 50 mg tablet 100 mg PO ONCE 90 Days Qty: 180 1RF ondansetron 4 mg tablet,disintegrating 4 mg PO Q8H PRN (Reason: for nausea/vomiting) 30 Days Qty: 10 0RF levothyroxine 50 mcg tablet 50 mcg PO DAILY@0600 Qty: 90 0RF methadone 10 mg/mL Concentrate 76 mg PO DAILY Rx Instructions: PT REC'D 27 TAKE HOME BOTTLES FROM [facility] ON 10/11/22 multivitamin Tablet 1 tab PO DAILY fluticasone propionate [Flonase Allergy Relief] 50 mcg/actuation spray,suspension 1 spray intranasal DAILY PRN (Reason: Allergy Symptoms) Rx Instructions: administer into each nostril lidocaine [Lidoderm] 5 % adhesive patch,medicated 1 patch topical DAILY 30 Days Qty: 30 0RF Rx Instructions: leave on most painful area for up to 12 hrs cyclobenzaprine 5 mg tablet 5 mg PO BEDTIME 30 Days Qty: 30 0RF peg 3350-electrolytes [Golytely] 236-22.74-6.74 -5.86 gram recon soln 240 ml PO Q10M Qty: 4000 0RF Rx Instructions: as per split prep instructions, until fecal effluent is clear rifaximin 550 mg tablet 550 mg PO BID 90 Days Qty: 180 1RF Print Language: Cuban
[2023-11-21 18:11] VITALS: BP 129/57; PULSE 103; RESP 19; TEMP 36.9; O2SAT 98; BMI 31.3
[2023-11-21 19:30] LABS: MANUAL DIFF FLAG NO
[2023-11-21 19:40] VITALS: BP 113/65; PULSE 87; RESP 18; TEMP 37.4; O2SAT 98
[2023-11-21 19:44] LABS: Basophils Percent Auto 0.2 % (0-2); Eosinophils Absolute Auto 0.1 X10*3/uL (0.0-0.4); Eosinophils Percent Auto 1.5 % (0-4); Imm Gran Abs Auto 0.02 X10*3/uL (0.00-0.03); Imm Gran Pct Auto 0.5 % (0.0-0.4); Lymphocytes Absolute Auto 0.4 X10*3/uL (1.2-4.9); Mean Corpuscular Hemoglobin 28.7 pg (27.0-33.0); Mean Corpuscular Volume 95.5 fL (80.0-98.0); Mean Platelet Volume 11.5 fL (9.4-12.3); Monocytes Absolute Auto 0.5 X10*3/uL (0.1-1.2); Monocytes Percent Auto 11.5 % (2-11); Neutrophils Absolute Auto 3.1 x10*3/uL (2.0-8.3); Neutrophils Percent Auto 76.3 % (45-73); Red Blood Count 1.78 X10*6/uL (4.20-5.50); White Blood Count 4.1 X10*3/uL (4.8-10.8)
[2023-11-21] MEDS: ondansetron HCL 4 MG/2 ML VIAL IVPUSH (19:44)
[2023-11-21] MEDS: Morphine Sulfate 10 MG/ML CARTRIDGE 8 MG IVPUSH (19:44)
[2023-11-21 19:56] LABS: INTERNATIONAL NORM RATIO 2.6 (0.9-1.1); Prothrombin Time 30.8 SEC (10.9-12.4)
[2023-11-21 20:02] LABS: Platelet Count 80 X10*3/uL (160-400)
[2023-11-21 20:05] LABS: Lactic Acid 1.4 mmol/L (0.5-2.0)
[2023-11-21 20:07] LABS: Hemoglobin 5.1 g/dl (12.0-16.0)
[2023-11-21 20:08] LABS: Alanine Aminotransferase 15 U/L (0-31); Albumin Level 2.3 g/dL (3.5-5.0); Alkaline Phosphatase 105 U/L (39-117); Anion Gap 13 (12-20); Aspartate Amino Transferase 22 U/L (5-31); Bilirubin Direct 0.6 mg/dL (0.0-0.5); Blood Urea Nitrogen 25 mg/dL (9-16); Calcium 7.8 mg/dL (8.4-10.2); Carbon Dioxide 22 mmol/L (22-29); Chloride 107 mmol/L (96-108); Creatinine Clr Calc Pharmacy 31.9; Estimated Glomerular Filt Rate 24; Glucose Random 202 mg/dL (60-115); Lipase 54 U/L (8-78); Magnesium 1.7 mg/dL (1.6-2.6); Partial Thromboplastin Time 23.3 SEC (26.0-36.8); Potassium 4.2 mmol/L (3.3-5.1); Sodium 138 mmol/L (135-145); Total Protein 5.1 g/dL (6.5-8.0)
[2023-11-21 20:42] VITALS: BP 105/54; PULSE 87; RESP 13; O2SAT 99
[2023-11-21 21:02] LABS: Influenza A PCR NEGATIVE (Negative); Influenza B PCR NEGATIVE (Negative); Resp Syncy Virus RNA Qual PCR NEGATIVE (Negative); SARS COV2 PCR INHOUSE NEGATIVE (Negative)
[2023-11-21 21:39] LABS: Appearance Urine Clear; Color Urine Yellow; Glucose Urine UA Negative (Negative); Leukocyte Esterase Urine Negative (Negative); Nitrite Urine Negative (Negative); PH 5.5 (5.0-9.0); Specific Gravity - Urine 1.015 (1.005-1.025); Urine Blood Negative (Negative); Urine Ketones Negative (Negative); Urine Protein Negative (Neg-Trace)
[2023-11-21] MEDS: Pantoprazole Sodium 40 MG/10 ML VIAL 80 MG IVPUSH (21:50)
[2023-11-21] MEDS: Octreotide Acetate 100 MCG/ML AMPUL 50 MCG IVPUSH (21:53)
[2023-11-21 22:01] LABS: Ammonia 64 umol/L (13-55)
[2023-11-21 22:09] LABS: Amphetamine Screen Urine Not Detected (Not Detect); Barbiturates, Urine Not Detected (Not Detect); Benzodiazepines Screen Urine Not Detected (Not Detect); Buprenorphine Scr Not Detected (Not Detect); Cannabinoid Screen Urine Not Detected (Not Detect); Cocaine Screen Urine Not Detected (Not Detect); Fentanyl, urine Not Detected (Not Detect); Methadone Screen, Urine Positive (Not Detect); Opiate Screen Urine POSITIVE (Not Detect); Oxycodone Screen Urine Not Detected (Not Detect); Phencyclidine Screen Urine Not Detected (Not Detect)
[2023-11-21] MEDS: HYDROmorphone HCl 1 MG/ML SYRINGE IVPUSH (22:11)
[2023-11-21] MEDS: cefTRIAXone sodium 1 GM in 0.9 % Sodium Chloride 50 ML IV ×2 (22:14→22:46)
--- NOTE | 2023-11-21 22:18 | P.HPHOSP_ITS ---
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 Patient states she was sent to the ER for evaluation of low hemoglobin. She denies melena, hematochezia or hematemesis. Patient states she has been having abdominal discomfort for the last 1 week which is generalized, nonradiating and without any relieving factors. Patient states the abdominal pain was initially intermittent but progressed to being constant. Patient has had poor p.o. intake due to abdominal pain. Also has been having abdominal distention. Patient states her diuretics were cut back due to rising creatinine. Denies fever, chills, chest pain, palpitations, shortness of breath, changes in urinary habits. In the emergency department, hemoglobin found to be 5.1 and 2 unit PRBC ordered along with IV Protonix, IV octreotide and IV ceftriaxone. Review of Systems 2 Constitutional: Constitutional: Reports fatigue and Reports poor appetite Cardiovascular: Cardiovascular: Reports no additional cardiovascular complaints Respiratory: Respiratory: Reports no additional respiratory complaints Gastrointestinal: Gastrointestinal: Reports abdominal pain Genitourinary: Genitourinary: Reports no additional female genitourinary complaints Endocrine: Endocrine: Reports fatigue [facility] Medical History COPD (chronic obstructive pulmonary disease) History of central line-associated bloodstream infection (CLABSI) Liver cirrhosis Acute on chronic anemia Ascites Pancytopenia History of hepatitis C Hydrothorax Pleural effusion, right Iron deficiency anemia Ascites of liver Hypertension, essential Hypothyroidism Allergic rhinitis Lipid disorder Rosacea Rheumatoid arthritis 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 Other Mental health disorder Substance use disorder Surgical History History of esophagogastroduodenoscopy (EGD) Hx of colonoscopy History of hernia repair History of bowel resection History of appendectomy Social History Household Members: None Housing: Apartment Are you a primary coronary care unit nurse to a significant other at home: No Do you presently have visiting nurse or other home services: No Unable to assess alcohol history related to: Unknown Alcohol intake: never Patient Tobacco Use Status: Current everyday Tobacco user Tobacco use type: Cigarette Cigarettes Per Day: 4 Years Smoked: 17 years old Smoked in Last 30 Days: No e-Cigarette/Vaping Use: Never Used Use of substances other than those prescribed or required for medical reasons: Unknown Advance Directives: No Advance Directives Information Provided: No Do you have a plan to hurt others: No Plan Patient : No service: No Current occupational status: employed Cognitive needs: No Hearing needs: No Vision needs: No Meds Allergies Allergy/AdvReac Type Severity Reaction Status Date / Time ciprofloxacin [Cipro] Allergy Unknown swelling Verified 11/21/23 18:12 of the throat , hives nitrofurantoin AdvReac Liver Verified 11/21/23 18:12 [From Macrobid] cirrhosis decompensation Active Medications: Current Medications Hydromorphone HCl (Hydromorphone Hcl 1 Mg/Ml Syringe) 1 mg IVPUSH Q4H PRN; Protocol PRN Reason: Pain, Severe (Pain Scale 7-10) Last Admin: 11/21/23 22:11 Dose: 1 mg Octreotide Acetate 500 mcg/ (Sodium Chloride) 501 mls @ 50.1 mls/hr IVCONT .Q10H FLORENCIO Sodium Chloride (Ns) 500 mls @ 500 mls/hr IV .Q1H ONE Stop: 11/21/23 23:14 Ceftriaxone Sodium 2 gm/ (Sodium Chloride) 50 mls @ 100 mls/hr IV Q24H FLORENCIO Ceftriaxone Sodium 1 gm/ (Sodium Chloride) 50 mls @ 100 mls/hr IV ONCE ONE Stop: 11/21/23 22:45 Pantoprazole Sodium (Pantoprazole Sodium 40 Mg/10 Ml Vial) 40 mg IVPUSH BID@0630,1630 [facility] Home Medications ?Medication ?Instructions ?Recorded ?Confirmed ?Last Taken ?Type methadone 10 mg/mL oral concentrate 76 mg PO DAILY 05/04/21 10/07/23 10/26/22 History multivitamin 1 tab PO DAILY 07/28/22 10/07/23 07/27/22 History fluticasone propionate 50 1 spray intranasal DAILY PRN 10/26/22 10/07/23 Unknown History mcg/actuation nasal Allergy Symptoms spray,suspension (Flonase Allergy Relief) Physical Exam 2 Vital Signs and Narrative: Vital Signs: Last Vital Signs Temp 99.4 F 11/21/23 19:40 Pulse 87 11/21/23 20:42 Resp 13 11/21/23 20:42 BP 105/54 L 11/21/23 20:42 Pulse Ox 99 11/21/23 20:42 O2 Del Method Room Air 11/21/23 20:42 BMI result Body Mass Index 31.3 Middle-aged female lying in bed in no distress Neck supple, no JVD Regular rate and rhythm, S1-S2 heard Regular breath sounds bilaterally, no wheezing or crackles appreciated Abdomen with distention and generalized tenderness, no guarding, no rigidity, no rebound tenderness Patient is awake, alert and oriented to self, place, time and person ; no focal motor deficit Psych: Normal mood No pedal edema Results Labs 11/21/23 19:25 11/21/23 19:25 Labs: Laboratory Results - last 24 hr 11/21/23 11/21/23 11/21/23 19:23 19:25 19:34 MCV 95.5 MCH 28.7 MCHC 30.0 L RDW 17.0 H Plt Count 80 L MPV 11.5 Immature Gran % (Auto) 0.5 H Neut % (Auto) 76.3 H Lymph % (Auto) 10.0 L Kerr % (Auto) 11.5 H Eos % (Auto) 1.5 Baso % (Auto) 0.2 Lymph # (Auto) 0.4 L Kerr # (Auto) 0.5 Eos # (Auto) 0.1 Baso # (Auto) 0.0 Abs Immat Gran (auto) 0.02 Absolute Neuts (auto) 3.1 Absolute Nucleated RBC 0.000 Nucleated RBC % (auto) 0.0 Hold Purple Top PT 30.8 H D INR 2.6 H D APTT 23.3 L Anion Gap 13 Estim Creat Clear Calc 31.9 Estimated GFR 24 Random Glucose 202 H Lactic Acid 1.4 Calcium 7.8 L Magnesium 1.7 Total Bilirubin 1.0 Direct Bilirubin 0.6 H AST 22 ALT 15 Alkaline Phosphatase 105 Ammonia Total Protein 5.1 L Albumin 2.3 L Lipase 54 Urine Color Urine Appearance Urine pH Ur Specific [place] Urine Protein Urine Glucose (UA) Urine Ketones Urine Blood Urine Nitrite Ur Leukocyte Esterase Urine Opiates Screen Ur Buprenorphine Scrn Ur Oxycodone Screen Urine Methadone Screen Urine Fentanyl Screen Ur Barbiturates Screen Ur Phencyclidine Scrn Ur Amphetamines Screen U Benzodiazepines Scrn Urine Cocaine Screen U Marijuana (THC) Screen Influenza Type A (PCR) NEGATIVE Influenza Type B (PCR) NEGATIVE RSV RNA Qual (PCR) NEGATIVE SARS-CoV-2 RNA (RT-PCR) NEGATIVE Blood Type A Positive Antibody Screen POSITIVE Antibody Identification Anti-K Crossmatch See Detail Blood Bank Comment Technical 11/21/23 11/21/23 11/21/23 19:35 20:44 21:44 MCV MCH MCHC RDW Plt Count MPV Immature Gran % (Auto) Neut % (Auto) Lymph % (Auto) Kerr % (Auto) Eos % (Auto) Baso % (Auto) Lymph # (Auto) Kerr # (Auto) Eos # (Auto) Baso # (Auto) Abs Immat Gran (auto) Absolute Neuts (auto) Absolute Nucleated RBC Nucleated RBC % (auto) Hold Purple Top SEE NOTE PT INR APTT Anion Gap Estim Creat Clear Calc Estimated GFR Random Glucose Lactic Acid Calcium Magnesium Total Bilirubin Direct Bilirubin AST ALT Alkaline Phosphatase Ammonia 64 H Total Protein Albumin Lipase Urine Color Yellow Urine Appearance Clear Urine pH 5.5 Ur Specific [place] 1.015 Urine Protein Negative Urine Glucose (UA) Negative Urine Ketones Negative Urine Blood Negative Urine Nitrite Negative Ur Leukocyte Esterase Negative Urine Opiates Screen POSITIVE H Ur Buprenorphine Scrn Not Detected Ur Oxycodone Screen Not Detected Urine Methadone Screen Positive H Urine Fentanyl Screen Not Detected Ur Barbiturates Screen Not Detected Ur Phencyclidine Scrn Not Detected Ur Amphetamines Screen Not Detected U Benzodiazepines Scrn Not Detected Urine Cocaine Screen Not Detected U Marijuana (THC) Screen Not Detected Influenza Type A (PCR) Influenza Type B (PCR) RSV RNA Qual (PCR) SARS-CoV-2 RNA (RT-PCR) Blood Type Antibody Screen Antibody Identification Crossmatch Blood Bank Comment Imaging Radiologist's Impressions: Impressions Abdomen/Pelvis CT 11/21/23 19:27 IMPRESSION: 1. Cirrhosis and splenomegaly with small volume abdominopelvic ascites. Spontaneous bacterial peritonitis not excluded on this nonenhanced study. 2. Right lower pole nonobstructing 3 mm renal calculus. 3. No evidence of small bowel obstruction. 4. Diffuse low-grade colonic bowel wall thickening, which is an equivocal finding in the presence of generalized anasarca and abdominal pelvic ascites, especially given the lack of intravenous contrast. Fleischner guidelines were followed. 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 #. Acute on chronic anemia: Concern for GI bleed in a patient with esophageal varices. Will admit patient with cardiac monitoring. Initiated IV Protonix, IV octreotide and IV ceftriaxone. Will keep patient NPO and consulted Gastroenterology. 2 unit PRBC being transfused in the ER. Closely monitor H&H #. Abdominal pain in a patient with decompensated liver cirrhosis: Initiated IV ceftriaxone for possible SBP. Diagnostic paracentesis in a.m.. Continue rifaximin and diuretics. #. Chronic kidney disease: Monitor with PRBC transfusion and diuretics #. COPD: No exacerbation during admission. Continue home inhalers #. Hypothyroidism: On Synthroid #. Coagulopathy and thrombocytopenia due to cirrhosis Med rec pending DVT prophylaxis: Mechanical Full code Admit as inpatient and will require two night minimum hospital stay for close monitoring of hemodynamics, H&H (as above), which is not possible in a lesser acute setting. Specialist consult pending Quality Stroke Does the patient have a stroke diagnosis?: No VTE Prior VTE?: No VTE Risk Level:: Medical - moderate - high VTE Device Contraindication: N/A - Device Ordered VTE Drug Contraindication: Treatment Not Indicated
[2023-11-21 22:52] VITALS: BP 121/59; PULSE 83; RESP 12; TEMP 37.4; O2SAT 99
[2023-11-21] MEDS: Octreotide Acetate 500 MCG in 0.9 % Sodium Chloride 500 ML 50.1 MCG IVCONT (23:08)
[2023-11-21] MEDS: 0.9 % Sodium Chloride 500 ML IV (23:16)
[2023-11-21] MEDS: diphenhydrAMINE HCL 50 MG/ML VIAL IVPUSH (23:57)
[2023-11-21] MEDS: Acetaminophen 325 MG TABLET 650 MG PO (23:57)
[2023-11-22] VITALS (14 sets, daily range): BP systolic 99–131; BP diastolic 49–67; PULSE 72–93; RESP 11–21; TEMP 36.3–37.2; O2SAT 96–99; BMI 30.9
[2023-11-22] MEDS: rifAXIMin 550 MG TABLET PO ×2 (00:10→22:02)
[2023-11-22] MEDS: HYDROmorphone HCl 1 MG/ML SYRINGE IVPUSH ×5 (02:47→22:51)
--- NOTE | 2023-11-22 05:25 | PC.NURSE ---
pt received 2 units RBCs and tolerated well. Pt has power port accessed to left anterior chest. Pt is A&Ox4, ambulates independently to and from bathroom, in no apparent distress. call bañuelos within reach, plan of care ongoing.
--- NOTE | 2023-11-22 07:55 | PC.NURSE ---
patient remains NPO at this time, call placed and message left at [facility] to confirm methadone dose. patient states last dose was yesterday at 0630
--- NOTE | 2023-11-22 09:19 | PHA.MEDREC ---
Pharmacy Consult ? Medication Reconciliation Pharmacy has completed the medication reconciliation. Spoke to patient at bedside, able to name medications and timing. Stated she takes 80mg methadone from [facility] and that her nurse was working on a verification
[2023-11-22] MEDS: Pantoprazole Sodium 40 MG/10 ML VIAL IVPUSH ×2 (10:23→17:15)
--- NOTE | 2023-11-22 10:24 | PC.NURSE ---
methadone verification obtained from jeanette GAY at [facility]. states patient received 27 80mg take home methadone bottles on oct 30 and is due back 11/28. patient states her last dose was yesterday morning 11/21 80 mg. labs obtained from patient's port - medicated per the MAR. prn pain medications utilized at this time.
--- NOTE | 2023-11-22 10:31 | PM.GICN ---
History of Present Illness Data of Consult Service Date: 11/22/23 Requesting physician: Yuri Mohan Primary Care Provider: David Ortiz MD HPI Reason for consult: Decomp cirrhosis, anemia, RHINA This is a 53y.o female with past medical history of HCV (s/p SVR 2014) that led to liver cirrhosis, complicated by portal hypertension with ascites and hydrothorax (adm to [facility] ICU in July 2022 for resp failure), small bowel Crohn's disease dx in 1994 (s/p ileocecectomy 1994, partial small bowel resection 1996, small bowel stricturoplasty 1998) currently not on any meds, est with [facility] for liver transplant evaluation who presented to the hospital on my behest for worsening abd pain and difficulty urinating. Pt had routine blood work done as outpatient that showed worsening anemia with Hb of 7.0 on 11/08. Recommendation was made to go to ER for blood transfusion which the pt deferred at that time. On recheck a week later this had dropped to 5.9. Pt at that time had planned to get PRBC transfusion through hematology office but ended up only getting IV fluid hydration. She then developed severe abd pain, fatigue, chills and inability to urinate. She was therefore advised to go to the ER. In the ER she was noted to have stable vitals. Labs with further drop in H/H to 5.1. She is s/p 2u PRBC transfusion. She also had an RHINA with Cr bumped to 2.4 as outpatient which has improved today. Imaging with small volume ascites. 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 Other Mental health disorder Substance use disorder Surgical History Surgical History History of esophagogastroduodenoscopy (EGD) Hx of colonoscopy History of hernia repair History of bowel resection History of appendectomy Social History Social History Household Members: None Housing: Apartment Are you a primary landcare facilitator to a significant other at home: No Do you presently have visiting nurse or other home services: No Unable to assess alcohol history related to: Unknown Alcohol intake: never Patient Tobacco Use Status: Current everyday Tobacco user Tobacco use type: Cigarette Cigarettes Per Day: 5 Years Smoked: 17 years old e-Cigarette/Vaping Use: Never Used service: No Current occupational status: employed Cognitive needs: No Hearing needs: No Vision needs: No Meds Allergies Allergy/AdvReac Type Severity Reaction Status Date / Time ciprofloxacin [Cipro] Allergy Unknown swelling Verified 11/21/23 18:12 of the throat , hives nitrofurantoin AdvReac Liver Verified 11/21/23 18:12 [From Macrobid] cirrhosis decompensation Active Medications: Current Medications Acetaminophen (Acetaminophen 325 Mg Tablet) 650 mg PO Q6H PRN PRN Reason: Pain, Mild (Pain Scale 1-3), fever or headache Last Admin: 11/21/23 23:57 Dose: 650 mg Calcium Carbonate (Calcium Carbonate 750 Mg Tab.Chew) 750 mg PO Q4H PRN PRN Reason: Heartburn Hydromorphone HCl (Hydromorphone Hcl 1 Mg/Ml Syringe) 1 mg IVPUSH Q4H PRN; Protocol PRN Reason: Pain, Severe (Pain Scale 7-10) Last Admin: 11/22/23 10:23 Dose: 1 mg Octreotide Acetate 500 mcg/ (Sodium Chloride) 501 mls @ 50.1 mls/hr IVCONT .Q10H FLORENCIO Last Admin: 11/21/23 23:08 Dose: 50 mcg/hr, 50.1 mls/hr Ceftriaxone Sodium 2 gm/ (Sodium Chloride) 50 mls @ 100 mls/hr IV Q24H FLORENCIO Magnesium Hydroxide (Milk Of Magnesia 30 Ml Oral.Susp) 30 ml PO DAILY PRN PRN Reason: Constipation Melatonin (Melatonin 3 Mg Tablet) 6 mg PO BEDTIME PRN PRN Reason: Insomnia Ondansetron HCl (Ondansetron Hcl 4 Mg/2 Ml Vial) 4 mg IVPUSH Q8H PRN PRN Reason: Nausea and Vomiting Pantoprazole Sodium (Pantoprazole Sodium 40 Mg/10 Ml Vial) 40 mg IVPUSH BID@0630,1630 [facility] Last Admin: 11/22/23 10:23 Dose: 40 mg Sodium Chloride (0.9 % Sodium Chloride Flush 3 Ml Syringe) 3 ml IVFLUSH QSHIFT [facility] Last Admin: 11/22/23 09:29 Dose: Not Given Home Medications ?Medication ?Instructions ?Recorded ?Confirmed ?Last Taken ?Type methadone 10 mg/mL oral concentrate 80 mg PO DAILY 05/04/21 11/22/23 11/21/23 History multivitamin 1 tab PO DAILY 07/28/22 11/22/23 11/21/23 History fluticasone propionate 50 1 spray intranasal DAILY PRN 10/26/22 11/22/23 Unknown History mcg/actuation nasal Allergy Symptoms spray,suspension (Flonase Allergy Relief) furosemide 20 mg tablet 40 mg PO BID 11/22/23 11/22/23 11/21/23 History spironolactone 50 mg tablet 50 mg PO BID 11/22/23 11/22/23 11/21/23 History Physical Exam Vital Signs: Vital Signs: Last Vital Signs Temp 98.7 F 11/22/23 05:27 Pulse 75 11/22/23 07:50 Resp 11 L 11/22/23 07:50 BP 110/60 11/22/23 07:50 Pulse Ox 99 11/22/23 07:50 O2 Del Method Room Air 11/22/23 07:50 BMI result Body Mass Index 31.3 Seen on 11/22 Walking NAD Abd soft, localised distention over epigastrium, tender No ROMÁN No resp distress Results Labs 11/23/23 14:30 11/23/23 06:27 Labs: Short CBC 11/21/23 Range/Units 19:25 WBC 4.1 L (4.8-10.8) X10*3/uL Hgb 5.1 L* (12.0-16.0) g/dl Hct 17.0 L* (37.0-47.0) % Plt Count 80 L (160-400) X10*3/uL BMP 11/21/23 19:25 Sodium 138 Potassium 4.2 Chloride 107 Carbon Dioxide 22 BUN 25 H Creatinine 2.12 H Calcium 7.8 L Liver Function 11/21/23 Range/Units 19:25 Total Bilirubin 1.0 (0.0-1.0) mg/dL Direct Bilirubin 0.6 H (0.0-0.5) mg/dL AST 22 (5-31) U/L ALT 15 (0-31) U/L Alkaline Phosphatase 105 (39-117) U/L Albumin 2.3 L (3.5-5.0) g/dL Urine 11/21/23 Range/Units 20:44 Urine Color Yellow Urine Appearance Clear Urine pH 5.5 (5.0-9.0) Ur Specific [place] 1.015 (1.005-1.025) Urine Protein Negative (Neg-Trace) mg/dL Urine Glucose (UA) Negative (Negative) mg/dL Assessment and Plan (1) Decompensated hepatic cirrhosis: Status: Acute (2) Abdominal pain: Status: Acute (3) Acute anemia: Status: Acute (4) RHINA (acute kidney injury): Status: Acute Plan Patient well known to our service. Presenting with severe anemia and RHINA. Has not had any overt output in terms of melena, or hematemesis. However, given high-risk, will need an upper endoscopy to rule out gave, AVM, PUD. Low suspicion for variceal bleeding as that is typically much more significant. SBP r/o on para. Plan: - Maintain x2 IV access at all times. - PRBC transfusion for goal Hb at least 7 - IV Albumin 25% 100ml QID x 48h - Cont PPI, ceftriaxone and octreotide - EGD today pending OR availability - Hemolysis labs To note the chart was prepped and brief recommendations were relayed on 11/21 but patient was seen today. UPDATE: EGD fiona to tmrw due to OR scheduling constraints today. Can resume CLD, NPO past midnight. Hospitalist was updated via tiger text. Procedures Date of Service Date of Service: 11/23/23
[2023-11-22 10:38] LABS: MANUAL DIFF FLAG NO
[2023-11-22 10:40] LABS: Basophils Percent Auto 0.3 % (0-2); Eosinophils Absolute Auto 0.1 X10*3/uL (0.0-0.4); Eosinophils Percent Auto 2.8 % (0-4); Hematocrit 21.7 % (37.0-47.0); Hemoglobin 7.1 g/dl (12.0-16.0); Imm Gran Abs Auto 0.02 X10*3/uL (0.00-0.03); Imm Gran Pct Auto 0.6 % (0.0-0.4); Lymphocytes Absolute Auto 0.5 X10*3/uL (1.2-4.9); Lymphocytes Percent Auto 15.6 % (20-40); Mean Corpuscular HGB Conc 32.7 g/dl (31.0-35.0); Mean Corpuscular Hemoglobin 30.6 pg (27.0-33.0); Mean Corpuscular Volume 93.5 fL (80.0-98.0); Mean Platelet Volume 11.5 fL (9.4-12.3); Monocytes Absolute Auto 0.3 X10*3/uL (0.1-1.2); Monocytes Percent Auto 9.7 % (2-11); Neutrophils Absolute Auto 2.3 x10*3/uL (2.0-8.3); Red Blood Count 2.32 X10*6/uL (4.20-5.50); Red Cell Distribution Width 17.2 % (11.0-16.0); White Blood Count 3.2 X10*3/uL (4.8-10.8)
[2023-11-22 10:42] LABS: Platelet Count 64 X10*3/uL (160-400)
--- NOTE | 2023-11-22 10:51 | HE.PHANOTE ---
Methadone Pt receives from [facility], . Per VICTOR HUGO Giordano, at facility, pt received 80 mg take home bottles, last received 80 mg on 11/21/23.
[2023-11-22 10:57] LABS: Alanine Aminotransferase 13 U/L (0-31); Albumin Level 2.2 g/dL (3.5-5.0); Alkaline Phosphatase 102 U/L (39-117); Anion Gap 9 (12-20); Aspartate Amino Transferase 21 U/L (5-31); Blood Urea Nitrogen 22 mg/dL (9-16); Calcium 7.6 mg/dL (8.4-10.2); Carbon Dioxide 24 mmol/L (22-29); Chloride 111 mmol/L (96-108); Creatinine Clr Calc Pharmacy 37.4; Estimated Glomerular Filt Rate 29; Glucose Random 184 mg/dL (60-115); Potassium 4.3 mmol/L (3.3-5.1); Sodium 140 mmol/L (135-145)
[2023-11-22] MEDS: methADONE HCl 20 MG/2 ML ORAL.CONC 80 MG PO (13:02)
[2023-11-22] MEDS: polyethylene glycoL 3350 17 GM POWD.PACK PO (13:02)
[2023-11-22] MEDS: Albumin Human 25 % 100 ML IV ×3 (13:02→22:46)
--- NOTE | 2023-11-22 14:25 | PC.NURSE ---
increase in abdominal pain after eating jello. medicated per the MAR for pain, off unit for paracentesis
--- NOTE | 2023-11-22 15:08 | PM.PROC ---
Brief Operative Note Date of procedure: 11/22/23 Pre-op diagnosis: Abdominal pain, concern for SBP Post-op diagnosis: same Procedure: US diagnostic paracentesis. Very small amount of perihepatic ascites present. 40 cc serous fluid aspirated and sent for analysis. No immediate complications. Anesthesia: local
--- NOTE | 2023-11-22 15:20 | PM.EVENT ---
Event Note Date of Service: 11/22/23 Event Note: Patient could not be seen today as was in IR suite for paracentesis. Brief recommendations: - Maintain x2 IV access at all times. - PRBC transfusion for goal Hb at least 7 - IV Albumin 25% 100ml QID - Cont PPI, ceftriaxone and octreotide - Diagnostic para as already has been ordered - Will likely need EGD this admission. Tentatively on sg for tmrw. Time Spent With Patient Time: Total time managing care of this patient today ____ minutes.
--- NOTE | 2023-11-22 15:33 | P.PNIM_ITS ---
Subjective Subjective Date of Service: 11/22/23 Interval History: Seen in follow-up for abdominal pain/distention Interval history: Denies any history coffee-ground emesis or bright red blood per rectum. Does endorse nausea but no vomiting. Denies any known history of esophageal varices. H/H 7.1/20 1.7% following 2 units packed red blood cells in the ED. reports constipation. Last BM 2 days ago but was difficult to pass Review of Systems Review of Systems: Yes all other systems are reviewed and are negative Physical Exam 2 Vital Signs: Vital Signs: Last Vital Signs Temp 98.7 F 11/22/23 05:27 Pulse 78 11/22/23 13:17 Resp 14 11/22/23 13:17 BP 114/67 11/22/23 13:17 Pulse Ox 99 11/22/23 13:17 O2 Del Method Room Air 11/22/23 13:17 BMI result Body Mass Index 31.3 Constitutional - Awake and Alert, No apparent distress Eyes - PERRLA, EOMI Cardiovascular - S1S2, RRR, No edema Respiratory - Normal lung expansion, Normal respiratory effort, No respiratory distress, CTA bilaterally Gastrointestinal - upper abd distension with ttp, no guarding or rebound. ND; +BS Extremities - no calf tenderness bilaterally, no swelling Skin - Warm/Dry Neurological - Alert & oriented x3 Psychological - Appropriate affect Objective Data Active Medications Acetaminophen (Acetaminophen 325 Mg Tablet) 650 mg PO Q6H PRN PRN Reason: Pain, Mild (Pain Scale 1-3), fever or headache Last Admin: 11/21/23 23:57 Dose: 650 mg Documented By: SARIKA Acyclovir (Acyclovir 200 Mg Capsule) 400 mg PO BEDTIME [facility] Calcium Carbonate (Calcium Carbonate 750 Mg Tab.Chew) 750 mg PO Q4H PRN PRN Reason: Heartburn Carvedilol (Carvedilol 6.25 Mg Tablet) 6.25 mg PO BID [facility]; Protocol Cyclobenzaprine HCl (Cyclobenzaprine Hcl 5 Mg Tablet) 5 mg PO BEDTIME [facility] Docusate Sodium (Docusate Sodium 100 Mg Capsule) 100 mg PO BID PRN PRN Reason: Constipation Fluticasone Propionate (Fluticasone Propionate Nasal 16 Gm [place]) 1 spray NOSTRIL-B DAILY PRN PRN Reason: Allergy Symptoms Furosemide (Furosemide 40 Mg Tablet) 40 mg PO BID [facility]; Protocol Hydromorphone HCl (Hydromorphone Hcl 1 Mg/Ml Syringe) 1 mg IVPUSH Q4H PRN; Protocol PRN Reason: Pain, Severe (Pain Scale 7-10) Last Admin: 11/22/23 14:14 Dose: 1 mg Documented By: ALEYDA Octreotide Acetate 500 mcg/ (Sodium Chloride) 501 mls @ 50.1 mls/hr IVCONT .Q10H [facility] Last Admin: 11/21/23 23:08 Dose: 50 mcg/hr, 50.1 mls/hr Documented By: SARIKA Ceftriaxone Sodium 2 gm/ (Sodium Chloride) 50 mls @ 100 mls/hr IV Q24H [facility] Albumin Human ([place]edbumin 25 %) 100 mls @ 100 mls/hr IV Q6H [facility] Stop: 11/23/23 06:29 Last Infusion: 11/22/23 14:05 Dose: Infused Documented By: ALEYDA Levothyroxine Sodium (Levothyroxine Sodium 50 Mcg Tablet) 50 mcg PO DAILY@0600 [facility] Magnesium Hydroxide (Milk Of Magnesia 30 Ml Oral.Susp) 30 ml PO DAILY PRN PRN Reason: Constipation Melatonin (Melatonin 3 Mg Tablet) 6 mg PO BEDTIME PRN PRN Reason: Insomnia Methadone HCl (Methadone Hcl 20 Mg/2 Ml Oral.Conc) 80 mg PO DAILY [facility] Last Admin: 11/22/23 13:02 Dose: 80 mg Documented By: ALEYDA Co-signed By: CARMELITA Multivitamins/Vitamin C (Multivitamin Tablet) 1 tab PO DAILY [facility] Ondansetron HCl (Ondansetron Hcl 4 Mg/2 Ml Vial) 4 mg IVPUSH Q8H PRN PRN Reason: Nausea and Vomiting Pantoprazole Sodium (Pantoprazole Sodium 40 Mg/10 Ml Vial) 40 mg IVPUSH BID@0630,1630 [facility] Last Admin: 11/22/23 10:23 Dose: 40 mg Documented By: ALEYDA Polyethylene Glycol (Polyethylene Glycol 3350 17 Gm Powd.Pack) 17 gm PO DAILY [facility] Last Admin: 11/22/23 13:02 Dose: 17 gm Documented By: ALEYDA Rifaximin (Rifaximin 550 Mg Tablet) 550 mg PO BID [facility] Sodium Chloride (0.9 % Sodium Chloride Flush 3 Ml Syringe) 3 ml IVFLUSH QSHIFT [facility] Last Admin: 11/22/23 09:29 Dose: Not Given Documented By: ALEYDA Non-Admin Reason: IV Running Spironolactone (Spironolactone 25 Mg Tablet) 50 mg PO BID [facility]; Protocol Labs 11/22/23 10:22 11/22/23 10:22 Labs: Laboratory Results - last 24 hr 11/21/23 11/21/23 11/21/23 19:23 19:25 19:34 MCV 95.5 MCH 28.7 MCHC 30.0 L RDW 17.0 H Plt Count 80 L MPV 11.5 Immature Gran % (Auto) 0.5 H Neut % (Auto) 76.3 H Lymph % (Auto) 10.0 L Wirt % (Auto) 11.5 H Eos % (Auto) 1.5 Baso % (Auto) 0.2 Lymph # (Auto) 0.4 L [place]irt # (Auto) 0.5 Eos # (Auto) 0.1 Baso # (Auto) 0.0 Abs Immat Gran (auto) 0.02 Absolute Neuts (auto) 3.1 Absolute Nucleated RBC 0.000 Nucleated RBC % (auto) 0.0 Hold Purple Top PT 30.8 H D INR 2.6 H D APTT 23.3 L Anion Gap 13 Estim Creat Clear Calc 31.9 Estimated GFR 24 Random Glucose 202 H Lactic Acid 1.4 Calcium 7.8 L Magnesium 1.7 Total Bilirubin 1.0 Direct Bilirubin 0.6 H AST 22 ALT 15 Alkaline Phosphatase 105 Ammonia Total Protein 5.1 L Albumin 2.3 L Lipase 54 Urine Color Urine Appearance Urine pH Ur Specific [place] Urine Protein Urine Glucose (UA) Urine Ketones Urine Blood Urine Nitrite Ur Leukocyte Esterase Urine Opiates Screen Ur Buprenorphine Scrn Ur Oxycodone Screen Urine Methadone Screen Urine Fentanyl Screen Ur Barbiturates Screen Ur Phencyclidine Scrn Ur Amphetamines Screen U Benzodiazepines Scrn Urine Cocaine Screen U Marijuana (THC) Screen Influenza Type A (PCR) NEGATIVE Influenza Type B (PCR) NEGATIVE RSV RNA Qual (PCR) NEGATIVE SARS-CoV-2 RNA (RT-PCR) NEGATIVE Blood Type A Positive Antibody Screen POSITIVE Antibody Identification Anti-K Crossmatch See Detail Crossmatch ([facility]) See Detail Blood Bank Comment Technical 11/21/23 11/21/23 11/21/23 19:35 20:44 21:44 MCV MCH MCHC RDW Plt Count MPV Immature Gran % (Auto) Neut % (Auto) Lymph % (Auto) [place] % (Auto) Eos % (Auto) Baso % (Auto) Lymph # (Auto) [place]irt # (Auto) Eos # (Auto) Baso # (Auto) Abs Immat Gran (auto) Absolute Neuts (auto) Absolute Nucleated RBC Nucleated RBC % (auto) Hold Purple Top SEE NOTE PT INR APTT Anion Gap Estim Creat Clear Calc Estimated GFR Random Glucose Lactic Acid Calcium Magnesium Total Bilirubin Direct Bilirubin AST ALT Alkaline Phosphatase Ammonia 64 H Total Protein Albumin Lipase Urine Color Yellow Urine Appearance Clear Urine pH 5.5 Ur Specific [place] 1.015 Urine Protein Negative Urine Glucose (UA) Negative Urine Ketones Negative Urine Blood Negative Urine Nitrite Negative Ur Leukocyte Esterase Negative Urine Opiates Screen POSITIVE H Ur Buprenorphine Scrn Not Detected Ur Oxycodone Screen Not Detected Urine Methadone Screen Positive H Urine Fentanyl Screen Not Detected Ur Barbiturates Screen Not Detected Ur Phencyclidine Scrn Not Detected Ur Amphetamines Screen Not Detected U Benzodiazepines Scrn Not Detected Urine Cocaine Screen Not Detected U Marijuana (THC) Screen Not Detected Influenza Type A (PCR) Influenza Type B (PCR) RSV RNA Qual (PCR) SARS-CoV-2 RNA (RT-PCR) Blood Type Antibody Screen Antibody Identification Crossmatch Crossmatch ([facility]) Blood Bank Comment 11/22/23 10:22 MCV 93.5 MCH 30.6 MCHC 32.7 RDW 17.2 H Plt Count 64 L MPV 11.5 Immature Gran % (Auto) 0.6 H Neut % (Auto) 71.0 Lymph % (Auto) 15.6 L [place] % (Auto) 9.7 Eos % (Auto) 2.8 Baso % (Auto) 0.3 Lymph # (Auto) 0.5 L [place] # (Auto) 0.3 Eos # (Auto) 0.1 Baso # (Auto) 0.0 Abs Immat Gran (auto) 0.02 Absolute Neuts (auto) 2.3 Absolute Nucleated RBC 0.000 Nucleated RBC % (auto) 0.0 Hold Purple Top PT INR APTT Anion Gap 9 L Estim Creat Clear Calc 37.4 Estimated GFR 29 Random Glucose 184 H Lactic Acid Calcium 7.6 L Magnesium Total Bilirubin 1.0 Direct Bilirubin AST 21 ALT 13 Alkaline Phosphatase 102 Ammonia Total Protein 5.0 L Albumin 2.2 L Lipase Urine Color Urine Appearance Urine pH Ur Specific [place] Urine Protein Urine Glucose (UA) Urine Ketones Urine Blood Urine Nitrite Ur Leukocyte Esterase Urine Opiates Screen Ur Buprenorphine Scrn Ur Oxycodone Screen Urine Methadone Screen Urine Fentanyl Screen Ur Barbiturates Screen Ur Phencyclidine Scrn Ur Amphetamines Screen U Benzodiazepines Scrn Urine Cocaine Screen U Marijuana (THC) Screen Influenza Type A (PCR) Influenza Type B (PCR) RSV RNA Qual (PCR) SARS-CoV-2 RNA (RT-PCR) Blood Type Antibody Screen Antibody Identification Crossmatch Crossmatch ([facility]) Blood Bank Comment Assessment and Plan (1) Decompensated hepatic cirrhosis: Status: Acute (2) Abdominal pain: Status: Acute (3) Acute anemia: Status: Acute Plan 53-year-old female with pertinent history of 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 Repeat H/H now. Transfuse to keep hgb >7.0 -Continue IV PPI, octreotide and ctx -Diagnostic paracentesis with peritoneal fluid analysis -continue iv ctx for sbp ppx -Give albumin 25% x 4 -Clear liquids, npo after midnight for probable EGD tomorrow -GI input appreciated #Acute Abd pain -due to ascites r/t above -plan as above #CKD stage 3 -renal function baseline #COPD -no exacerbation, continue home inhalers #Hypothyroidism -continue levothyroxine #Coagulopathy -r/t cirrhosis, stable #Chronic pancytopenia -r/t cirrhosis, stable DVT ppx- SCPs due to possible gi bleed full code ongoing inpt stay for close monitoring of blood counts with tranfusions, iv abx for sbp prophylaxis while awaiting peritoneal fluid analysis and expert consultation with egd to evaluate for ugib and close monitoring of hemodynamics Quality Stroke Does the patient have a stroke diagnosis?: No VTE Prior VTE?: No VTE Risk Level:: Medical - moderate - high VTE Device Contraindication: N/A - Device Ordered VTE Drug Contraindication: Treatment Not Indicated
[2023-11-22] MEDS: Lidocaine HCl 1 % MPF 5 ML VIAL SUBCUT (15:34)
[2023-11-22 15:44] LABS: MN% 73.8 %; PMN% 26.2 %; WBC Peritoneal Fluid 0.164 X10*3/uL
[2023-11-22 17:23] LABS: RBC Peritoneal Fluid < 0.002 X10*6/uL
[2023-11-22 17:24] LABS: BF Shift QC OK YES; Lymphocyte Peritoneal Fl 8 %; Man Diluent Bkgrd OK YES; Monocytes Peritoneal Fl 20 %; Neutrophils Peritoneal Fluid 33 %; Other Peritioneal Fl 39 %
[2023-11-22 17:42] LABS: Hematocrit 22.5 % (37.0-47.0); Hemoglobin 7.2 g/dl (12.0-16.0)
[2023-11-22] MEDS: Octreotide Acetate 500 MCG in 0.9 % Sodium Chloride 500 ML 50.1 MCG IVCONT (19:53)
--- NOTE | 2023-11-22 20:15 | PC.NURSE ---
assumed care of pt at 1930, pt a&ox4, vss, medicated per APR. cont's to report 7/10 abd pain but verbalizes that it is too early for next dose of scheduled pain meds.
[2023-11-22] MEDS: Furosemide 40 MG TABLET PO (22:02)
[2023-11-22] MEDS: Acyclovir 200 MG CAPSULE 400 MG PO (22:02)
[2023-11-22] MEDS: carvediloL 6.25 MG TABLET PO (22:03)
[2023-11-22] MEDS: Cyclobenzaprine HCl 5 MG TABLET PO (22:03)
[2023-11-22] MEDS: cefTRIAXone sodium 2 GM in 0.9 % Sodium Chloride 50 ML IV (22:04)
[2023-11-22] MEDS: Spironolactone 25 MG TABLET 50 MG PO (22:04)
[2023-11-23] VITALS (12 sets, daily range): BP systolic 94–128; BP diastolic 57–75; PULSE 63–84; RESP 14–20; TEMP 36.1–37.3; O2SAT 92–96
[2023-11-23] MEDS: Albumin Human 25 % 100 ML IV (04:41)
[2023-11-23] MEDS: Octreotide Acetate 500 MCG in 0.9 % Sodium Chloride 500 ML 50.1 MCG IVCONT ×2 (04:46→18:36)
[2023-11-23] MEDS: HYDROmorphone HCl 1 MG/ML SYRINGE IVPUSH ×5 (04:47→21:42)
[2023-11-23 07:03] LABS: Basophils Percent Auto 0.5 % (0-2); Eosinophils Absolute Auto 0.1 X10*3/uL (0.0-0.4); Eosinophils Percent Auto 2.4 % (0-4); Imm Gran Abs Auto 0.01 X10*3/uL (0.00-0.03); Imm Gran Pct Auto 0.5 % (0.0-0.4); Lymphocytes Absolute Auto 0.4 X10*3/uL (1.2-4.9); Lymphocytes Percent Auto 20.6 % (20-40); MANUAL DIFF FLAG SCAN; Mean Corpuscular HGB Conc 31.5 g/dl (31.0-35.0); Mean Corpuscular Hemoglobin 29.7 pg (27.0-33.0); Mean Corpuscular Volume 94.3 fL (80.0-98.0); Monocytes Absolute Auto 0.2 X10*3/uL (0.1-1.2); Monocytes Percent Auto 11.5 % (2-11); Neutrophils Absolute Auto 1.4 x10*3/uL (2.0-8.3); Neutrophils Percent Auto 64.5 % (45-73); Red Blood Count 2.12 X10*6/uL (4.20-5.50); Red Cell Distribution Width 16.9 % (11.0-16.0); SCAN SMEAR FLAG 1
--- NOTE | 2023-11-23 07:13 | P.PNIM_ITS ---
Subjective Subjective Date of Service: 11/23/23 Interval History: Seen in follow-up for abdominal pain/distention Interval history: Denies any history coffee-ground emesis or bright red blood per rectum. Does endorse nausea but no vomiting. Continues with upper abd pain w/ minimal peritoneal fluid on paracentesis yesterday. Peritoneal fluid analysis not indicative of SBP but continues on prophylaxis as well as octreotide. H/H decreased to 6.3/20.0%. Plan for EGD today Review of Systems Review of Systems: Yes all other systems are reviewed and are negative Physical Exam 2 Vital Signs: Vital Signs: Last Vital Signs Temp 99.1 F 11/23/23 03:36 Pulse 84 11/23/23 05:00 Resp 20 11/23/23 03:36 BP 128/75 11/23/23 05:00 Pulse Ox 94 11/23/23 03:36 O2 Del Method Room Air 11/23/23 03:36 BMI result Body Mass Index 30.9 Constitutional - Awake and Alert, No apparent distress Eyes - PERRLA, EOMI Cardiovascular - S1S2, RRR, No edema Respiratory - Normal lung expansion, Normal respiratory effort, No respiratory distress, CTA bilaterally Gastrointestinal - upper abd distension with ttp, no guarding or rebound. ND; +BS Extremities - no calf tenderness bilaterally, no swelling Skin - Warm/Dry Neurological - Alert & oriented x3 Psychological - Appropriate affect Objective Data Active Medications Acetaminophen (Acetaminophen 325 Mg Tablet) 650 mg PO Q6H PRN PRN Reason: Pain, Mild (Pain Scale 1-3), fever or headache Last Admin: 11/21/23 23:57 Dose: 650 mg Acyclovir (Acyclovir 200 Mg Capsule) 400 mg PO BEDTIME [facility] Last Admin: 11/22/23 22:02 Dose: 400 mg Documented By: YUMIKO Calcium Carbonate (Calcium Carbonate 750 Mg Tab.Chew) 750 mg PO Q4H PRN PRN Reason: Heartburn Carvedilol (Carvedilol 6.25 Mg Tablet) 6.25 mg PO BID [facility]; Protocol Last Admin: 11/22/23 22:03 Dose: 6.25 mg Documented By: YUMIKO Cyclobenzaprine HCl (Cyclobenzaprine Hcl 5 Mg Tablet) 5 mg PO BEDTIME [facility] Last Admin: 11/22/23 22:03 Dose: 5 mg Documented By: YUMIKO Docusate Sodium (Docusate Sodium 100 Mg Capsule) 100 mg PO BID PRN PRN Reason: Constipation Fluticasone Propionate (Fluticasone Propionate Nasal 16 Gm [place]) 1 spray NOSTRIL-B DAILY PRN PRN Reason: Allergy Symptoms Furosemide (Furosemide 40 Mg Tablet) 40 mg PO BID [facility]; Protocol Last Admin: 11/22/23 22:02 Dose: 40 mg Documented By: YUMIKO Hydromorphone HCl (Hydromorphone Hcl 1 Mg/Ml Syringe) 1 mg IVPUSH Q4H PRN; Protocol PRN Reason: Pain, Severe (Pain Scale 7-10) Last Admin: 11/23/23 04:47 Dose: 1 mg Documented By: YUMIKO Octreotide Acetate 500 mcg/ (Sodium Chloride) 501 mls @ 50.1 mls/hr IVCONT .Q10H [facility] Last Admin: 11/23/23 04:46 Dose: 50 mcg/hr, 50.1 mls/hr Documented By: YUMIKO Ceftriaxone Sodium 2 gm/ (Sodium Chloride) 50 mls @ 100 mls/hr IV Q24H [facility] Last Infusion: 11/22/23 22:35 Dose: Infused Documented By: YUMIKO Levothyroxine Sodium (Levothyroxine Sodium 50 Mcg Tablet) 50 mcg PO DAILY@0600 [facility] Magnesium Hydroxide (Milk Of Magnesia 30 Ml Oral.Susp) 30 ml PO DAILY PRN PRN Reason: Constipation Melatonin (Melatonin 3 Mg Tablet) 6 mg PO BEDTIME PRN PRN Reason: Insomnia Methadone HCl (Methadone Hcl 20 Mg/2 Ml Oral.Conc) 80 mg PO DAILY [facility] Last Admin: 11/22/23 13:02 Dose: 80 mg Documented By: ALEYDA Co-signed By: CARMELITA Multivitamins/Vitamin C (Multivitamin Tablet) 1 tab PO DAILY [facility] Ondansetron HCl (Ondansetron Hcl 4 Mg/2 Ml Vial) 4 mg IVPUSH Q8H PRN PRN Reason: Nausea and Vomiting Pantoprazole Sodium (Pantoprazole Sodium 40 Mg/10 Ml Vial) 40 mg IVPUSH BID@0630,1630 [facility] Last Admin: 11/22/23 17:15 Dose: 40 mg Documented By: ALEYDA Polyethylene Glycol (Polyethylene Glycol 3350 17 Gm Powd.Pack) 17 gm PO DAILY [facility] Last Admin: 11/22/23 13:02 Dose: 17 gm Documented By: ALEYDA Rifaximin (Rifaximin 550 Mg Tablet) 550 mg PO BID [facility] Last Admin: 11/22/23 22:02 Dose: 550 mg Documented By: YUMIKO Sodium Chloride (0.9 % Sodium Chloride Flush 3 Ml Syringe) 3 ml IVFLUSH QSHIFT [facility] Last Admin: 11/23/23 00:15 Dose: Not Given Documented By: YUMIKO Non-Admin Reason: IV Running Spironolactone (Spironolactone 25 Mg Tablet) 50 mg PO BID [facility]; Protocol Last Admin: 11/22/23 22:04 Dose: 50 mg Documented By: YUMIKO Labs 11/23/23 06:27 11/23/23 06:27 Labs: Laboratory Results - last 24 hr 11/22/23 11/22/23 10:22 15:00 MCV 93.5 MCH 30.6 MCHC 32.7 RDW 17.2 H Plt Count 64 L MPV 11.5 Immature Gran % (Auto) 0.6 H Neut % (Auto) 71.0 Lymph % (Auto) 15.6 L [place] % (Auto) 9.7 Eos % (Auto) 2.8 Baso % (Auto) 0.3 Lymph # (Auto) 0.5 L [place] # (Auto) 0.3 Eos # (Auto) 0.1 Baso # (Auto) 0.0 Abs Immat Gran (auto) 0.02 Absolute Neuts (auto) 2.3 Absolute Nucleated RBC 0.000 Nucleated RBC % (auto) 0.0 Anion Gap 9 L Estim Creat Clear Calc 37.4 Estimated GFR 29 Random Glucose 184 H Calcium 7.6 L Total Bilirubin 1.0 AST 21 ALT 13 Alkaline Phosphatase 102 Total Protein 5.0 L Albumin 2.2 L Peritoneal WBC 0.164 Peritoneal RBC < 0.002 [place] Neutrophils 33 [place] Lymphocytes 8 Peritoneal Monocytes 20 Peritoneal Other Cells 39 Microbiology Microbiology Results: Microbiology 11/21/23 19:23 Blood Culture - Preliminary Blood - Venous No growth after 24 hours. 11/21/23 19:23 Blood Culture - Preliminary Blood - Venous No growth after 24 hours. Assessment and Plan (1) Decompensated hepatic cirrhosis: Status: Acute (2) Abdominal pain: Status: Acute (3) Acute anemia: Status: Acute Plan 53-year-old female with pertinent history of hepatitis-C cirrhosis with esophageal varices and ascites, former IV drug use disorder on methadone, hypothyroidism, COPD not on home oxygen, Crohn's disease, rheumatoid arthritis, hypothyroidism, CKD admitted for evaluation of decompensated hepatic cirrhosis with acute on chronic anemia and concern for acute GIB #Acute on chronic anemia with concern for UGIB with decompensated hepatic cirrosis -H/H improved to 7.1/21.7%--> 6.3/20.0%. Received 2 units packed red blood cells in the ED 11/20. Give additional 1 unit packed red blood cells now 11/22. Transfuse to keep hgb >7.0. Repeat H/H @4pm -Continue IV PPI, octreotide (no known hx varices). EGD scheduled for today -Diagnostic paracentesis not indicative of SBP. Continue ctx for ppx -Given albumin 25% x 4 11/21 -GI input appreciated -per GI, recommend hemolysis workup-LDH, haptoglobin, reticulocyte panel, Irasema test ordered #Acute Abd pain -due to ascites r/t above -plan as above #CKD stage 3 -renal function baseline #COPD -no exacerbation, continue home inhalers #Hypothyroidism -continue levothyroxine #Coagulopathy -r/t cirrhosis, stable #Chronic pancytopenia -r/t cirrhosis, stable DVT ppx- SCPs due to possible gi bleed full code ongoing inpt stay for close monitoring of blood counts with tranfusions, iv abx for sbp prophylaxis while awaiting peritoneal fluid analysis and expert consultation with egd to evaluate for ugib and close monitoring of hemodynamics Quality Stroke Does the patient have a stroke diagnosis?: No VTE Prior VTE?: No VTE Risk Level:: Medical - moderate - high VTE Device Contraindication: N/A - Device Ordered VTE Drug Contraindication: Treatment Not Indicated
[2023-11-23 07:20] LABS: Anion Gap 11 (12-20); Blood Urea Nitrogen 19 mg/dL (9-16); Calcium 8.6 mg/dL (8.4-10.2); Carbon Dioxide 27 mmol/L (22-29); Chloride 109 mmol/L (96-108); Creatinine Clr Calc Pharmacy 44.2; Estimated Glomerular Filt Rate 36; Glucose Random 83 mg/dL (60-115); Potassium 3.9 mmol/L (3.3-5.1); Sodium 143 mmol/L (135-145)
[2023-11-23 07:21] LABS: White Blood Count 2.1 X10*3/uL (4.8-10.8)
[2023-11-23 07:22] LABS: Hemoglobin 6.3 g/dl (12.0-16.0)
[2023-11-23 07:23] LABS: Platelet Count 62 X10*3/uL (160-400)
[2023-11-23 08:06] LABS: SLIDE REVIEW VERIFIED
[2023-11-23] MEDS: Furosemide 40 MG TABLET PO ×2 (08:17→22:04)
[2023-11-23] MEDS: Pantoprazole Sodium 40 MG/10 ML VIAL IVPUSH ×2 (08:17→17:34)
[2023-11-23] MEDS: rifAXIMin 550 MG TABLET PO ×2 (08:17→22:04)
[2023-11-23] MEDS: carvediloL 6.25 MG TABLET PO ×2 (08:18→22:04)
[2023-11-23] MEDS: Multivitamin TABLET 1 TAB PO (08:18)
[2023-11-23] MEDS: methADONE HCl 20 MG/2 ML ORAL.CONC 80 MG PO (08:18)
[2023-11-23] MEDS: Levothyroxine Sodium 50 MCG TABLET PO (08:18)
[2023-11-23] MEDS: Spironolactone 25 MG TABLET 50 MG PO ×2 (08:18→22:03)
[2023-11-23] MEDS: polyethylene glycoL 3350 17 GM POWD.PACK PO (08:18)
--- NOTE | 2023-11-23 09:03 | MHC.CM.PN ---
IMM 11/23/23, Pt lives alone, she is independent, no home health services, no DME. HCP on file and confirmed: Anna, her mother. PCP confirmed: David Ortiz. Transport home at DC is her car, in lot, or family can come pick her up. She goes to [facility] for Methadone. DCP: home, self care, CM to follow for DC needs.
[2023-11-23] MEDS: Acetaminophen 325 MG TABLET 650 MG PO (09:31)
[2023-11-23] MEDS: diphenhydrAMINE HCL 50 MG/ML VIAL IVPUSH (09:32)
[2023-11-23 12:31] LABS: Retic HGB Equivalent 24.8 pg (30.0-35.0); Reticulocyte Percent 2.3 % (0.5-1.8); Reticulocytes Absolute 0.048 X10*6/uL (0.026-0.095)
[2023-11-23 12:35] LABS: Lactate Dehydrogenase 131 U/L (122-220)
[2023-11-23 14:52] LABS: Hematocrit 23.3 % (37.0-47.0); Hemoglobin 7.5 g/dl (12.0-16.0)
[2023-11-23 15:05] LABS: Haptoglobin 68 mg/dL (35-250)
[2023-11-23] MEDS: cefTRIAXone sodium 2 GM in 0.9 % Sodium Chloride 50 ML IV (22:03)
[2023-11-23] MEDS: Cyclobenzaprine HCl 5 MG TABLET PO (22:04)
[2023-11-23] MEDS: Acyclovir 200 MG CAPSULE 400 MG PO (22:04)
[2023-11-23] MEDS: Docusate Sodium 100 MG CAPSULE PO (23:03)
[2023-11-24] VITALS (8 sets, daily range): BP systolic 99–138; BP diastolic 53–77; PULSE 62–70; RESP 14–20; TEMP 36.1–37.3; O2SAT 92–96
[2023-11-24] MEDS: HYDROmorphone HCl 2 MG/ML VIAL 1.5 MG IVPUSH (00:43)
[2023-11-24] MEDS: HYDROmorphone HCl 1 MG/ML SYRINGE IVPUSH ×2 (04:27→08:52)
[2023-11-24] MEDS: Octreotide Acetate 500 MCG in 0.9 % Sodium Chloride 500 ML 50.1 MCG IVCONT (04:28)
[2023-11-24] MEDS: Pantoprazole Sodium 40 MG/10 ML VIAL IVPUSH (05:37)
[2023-11-24 07:03] LABS: Basophils Percent Auto 0.5 % (0-2); Eosinophils Absolute Auto 0.1 X10*3/uL (0.0-0.4); Eosinophils Percent Auto 3.3 % (0-4); Hematocrit 24.7 % (37.0-47.0); Lymphocytes Absolute Auto 0.4 X10*3/uL (1.2-4.9); Lymphocytes Percent Auto 19.2 % (20-40); MANUAL DIFF FLAG SCAN; Mean Corpuscular HGB Conc 32.4 g/dl (31.0-35.0); Mean Corpuscular Hemoglobin 30.5 pg (27.0-33.0); Mean Corpuscular Volume 94.3 fL (80.0-98.0); Mean Platelet Volume 11.5 fL (9.4-12.3); Monocytes Absolute Auto 0.3 X10*3/uL (0.1-1.2); Monocytes Percent Auto 12.1 % (2-11); Neutrophils Absolute Auto 1.4 x10*3/uL (2.0-8.3); Neutrophils Percent Auto 64.9 % (45-73); Red Blood Count 2.62 X10*6/uL (4.20-5.50); Red Cell Distribution Width 16.1 % (11.0-16.0); SCAN SMEAR FLAG 1
[2023-11-24 07:04] LABS: Platelet Count 59 X10*3/uL (160-400); White Blood Count 2.1 X10*3/uL (4.8-10.8)
[2023-11-24 07:32] LABS: Alanine Aminotransferase 10 U/L (0-31); Albumin Level 3.1 g/dL (3.5-5.0); Alkaline Phosphatase 90 U/L (39-117); Anion Gap 13 (12-20); Aspartate Amino Transferase 19 U/L (5-31); Bilirubin Total 1.7 mg/dL (0.0-1.0); Blood Urea Nitrogen 19 mg/dL (9-16); Calcium 8.5 mg/dL (8.4-10.2); Carbon Dioxide 28 mmol/L (22-29); Chloride 104 mmol/L (96-108); Creatinine Clr Calc Pharmacy 43.9; Estimated Glomerular Filt Rate 36; Glucose Random 101 mg/dL (60-115); Potassium 3.5 mmol/L (3.3-5.1); SLIDE REVIEW VERIFIED; Sodium 141 mmol/L (135-145); Total Protein 5.5 g/dL (6.5-8.0)
[2023-11-24] MEDS: Spironolactone 25 MG TABLET 50 MG PO (08:40)
[2023-11-24] MEDS: Furosemide 40 MG TABLET PO (08:40)
[2023-11-24] MEDS: carvediloL 6.25 MG TABLET PO (08:40)
[2023-11-24] MEDS: methADONE HCl 20 MG/2 ML ORAL.CONC 80 MG PO (08:41)
--- NOTE | 2023-11-24 10:34 | P.PNIM_ITS ---
Subjective Subjective Date of Service: 11/24/23 Interval History: no gross bleeding, feeling better Physical Exam 2 Vital Signs: Vital Signs: Last Vital Signs Temp 98.5 F 11/24/23 07:46 Pulse 70 11/24/23 07:46 Resp 18 11/24/23 07:46 BP 120/64 11/24/23 07:46 Pulse Ox 95 11/24/23 07:46 O2 Del Method Room Air 11/24/23 07:46 BMI result Body Mass Index 30.9 General: AO X 3, no acute distress Resp: CTA bilateral, no accessory muscles used CVS: S1,S2,RRR GI: soft, non tender, non distended Neuro: motor grossly intact, alert Psych: appropriate affect, appropriate insight Objective Data Active Medications Acetaminophen (Acetaminophen 325 Mg Tablet) 650 mg PO Q6H PRN PRN Reason: Pain, Mild (Pain Scale 1-3), fever or headache Last Admin: 11/23/23 09:31 Dose: 650 mg Documented By: DAVIDSON Acyclovir (Acyclovir 200 Mg Capsule) 400 mg PO BEDTIME [facility] Last Admin: 11/23/23 22:04 Dose: 400 mg Documented By: ROSITA Calcium Carbonate (Calcium Carbonate 750 Mg Tab.Chew) 750 mg PO Q4H PRN PRN Reason: Heartburn Carvedilol (Carvedilol 6.25 Mg Tablet) 6.25 mg PO BID [facility]; Protocol Last Admin: 11/24/23 08:40 Dose: 6.25 mg Documented By: CHANDRIKA Cyclobenzaprine HCl (Cyclobenzaprine Hcl 5 Mg Tablet) 5 mg PO BEDTIME [facility] Last Admin: 11/23/23 22:04 Dose: 5 mg Documented By: ROSITA Docusate Sodium (Docusate Sodium 100 Mg Capsule) 100 mg PO BID PRN PRN Reason: Constipation Last Admin: 11/23/23 23:03 Dose: 100 mg Documented By: ROSITA Fluticasone Propionate (Fluticasone Propionate Nasal 16 [place] [place]) 1 spray NOSTRIL-B DAILY PRN PRN Reason: Allergy Symptoms Furosemide (Furosemide 40 Mg Tablet) 40 mg PO BID [facility]; Protocol Last Admin: 11/24/23 08:40 Dose: 40 mg Documented By: CHANDRIKA Hydromorphone HCl (Hydromorphone Hcl 1 Mg/Ml Syringe) 1 mg IVPUSH Q4H PRN; Protocol PRN Reason: Pain, Severe (Pain Scale 7-10) Last Admin: 11/24/23 08:52 Dose: 1 mg Documented By: CHANDRIKA Octreotide Acetate 500 mcg/ (Sodium Chloride) 501 mls @ 50.1 mls/hr IVCONT .Q10H [facility] Last Admin: 11/24/23 04:28 Dose: 50 mcg/hr, 50.1 mls/hr Documented By: ROSITA Ceftriaxone Sodium 2 gm/ (Sodium Chloride) 50 mls @ 100 mls/hr IV Q24H [facility] Last Infusion: 11/23/23 23:08 Dose: Infused Documented By: ROSITA Levothyroxine Sodium (Levothyroxine Sodium 50 Mcg Tablet) 50 mcg PO DAILY@0600 [facility] Last Admin: 11/24/23 05:35 Dose: Not Given Documented By: ROSITA Non-Admin Reason: NPO Magnesium Hydroxide (Milk Of Magnesia 30 Ml Oral.Susp) 30 ml PO DAILY PRN PRN Reason: Constipation Melatonin (Melatonin 3 Mg Tablet) 6 mg PO BEDTIME PRN PRN Reason: Insomnia Methadone HCl (Methadone Hcl 20 Mg/2 Ml Oral.Conc) 80 mg PO DAILY [facility] Last Admin: 11/24/23 08:41 Dose: 80 mg Documented By: CHANDRIKA Co-signed By: ARCHANA Multivitamins/Vitamin C (Multivitamin Tablet) 1 tab PO DAILY [facility] Last Admin: 11/23/23 08:18 Dose: 1 tab Documented By: LUDA Naloxone HCl (Naloxone Hcl 0.4 Mg/Ml Vial) 0.04 mg IVPUSH Q5M PRN PRN Reason: Excessive sedation or RR < 8 Ondansetron HCl (Ondansetron Hcl 4 Mg/2 Ml Vial) 4 mg IVPUSH Q8H PRN PRN Reason: Nausea and Vomiting Pantoprazole Sodium (Pantoprazole Sodium 40 Mg/10 Ml Vial) 40 mg IVPUSH BID@0630,1630 [facility] Last Admin: 11/24/23 05:37 Dose: 40 mg Documented By: ROSITA Polyethylene Glycol (Polyethylene Glycol 3350 17 Gm Powd.Pack) 17 gm PO DAILY [facility] Last Admin: 11/23/23 08:18 Dose: 17 gm Documented By: LUDA Rifaximin (Rifaximin 550 Mg Tablet) 550 mg PO BID [facility] Last Admin: 11/23/23 22:04 Dose: 550 mg Documented By: ROSITA Sodium Chloride (0.9 % Sodium Chloride Flush 3 Ml Syringe) 3 ml IVFLUSH QSHIFT [facility] Last Admin: 11/24/23 08:47 Dose: Not Given Documented By: CHANDRIKA Non-Admin Reason: IV Running Spironolactone (Spironolactone 25 Mg Tablet) 50 mg PO BID [facility]; Protocol Last Admin: 11/24/23 08:40 Dose: 50 mg Documented By: CHANDRIKA Labs 11/24/23 06:51 11/24/23 06:51 Labs: Laboratory Results - last 24 hr 11/21/23 11/23/23 11/23/23 19:34 06:27 14:28 MCV MCH MCHC RDW Plt Count MPV Immature Gran % (Auto) Neut % (Auto) Lymph % (Auto) [place] % (Auto) Eos % (Auto) Baso % (Auto) Lymph # (Auto) [place] # (Auto) Eos # (Auto) Baso # (Auto) Abs Immat Gran (auto) Absolute Neuts (auto) Absolute Nucleated RBC Nucleated RBC % (auto) Smear Tech's Comments Absolute Retic 0.048 Percent Retic 2.3 H Immature Retic Fraction 39.0 H Retic Hgb Equivalent 24.8 L Anion Gap Estim Creat Clear Calc Estimated GFR Random Glucose Haptoglobin 68 Calcium Total Bilirubin AST ALT Alkaline Phosphatase Lactate Dehydrogenase 131 Total Protein Albumin Blood Type A Positive Antibody Screen POSITIVE Antibody Identification Anti-K STEPHANIE, Polyspecific NEGATIVE Positive STEPHANIE Work-up TNP Crossmatch See Detail Crossmatch ([facility]) See Detail Blood Bank Comment Technical 11/24/23 06:51 MCV 94.3 MCH 30.5 MCHC 32.4 RDW 16.1 H Plt Count 59 L MPV 11.5 Immature Gran % (Auto) 0.0 Neut % (Auto) 64.9 Lymph % (Auto) 19.2 L [place] % (Auto) 12.1 H Eos % (Auto) 3.3 Baso % (Auto) 0.5 Lymph # (Auto) 0.4 L [place] # (Auto) 0.3 Eos # (Auto) 0.1 Baso # (Auto) 0.0 Abs Immat Gran (auto) 0.00 Absolute Neuts (auto) 1.4 L Absolute Nucleated RBC 0.000 Nucleated RBC % (auto) 0.0 Smear Tech's Comments VERIFIED Absolute Retic Percent Retic Immature Retic Fraction Retic Hgb Equivalent Anion Gap 13 Estim Creat Clear Calc 43.9 Estimated GFR 36 Random Glucose 101 Haptoglobin Calcium 8.5 Total Bilirubin 1.7 H AST 19 ALT 10 Alkaline Phosphatase 90 Lactate Dehydrogenase Total Protein 5.5 L Albumin 3.1 L Blood Type Antibody Screen Antibody Identification STEPHANIE, Polyspecific Positive STEPHANIE Work-up Crossmatch Crossmatch ([facility]) Blood Bank Comment Microbiology Microbiology Results: Microbiology 11/22/23 15:00 Gram Stain - Final Ascites Fluid Anaerobic Culture - Preliminary No growth to date. Body Fluid Culture - Preliminary No growth to date. 11/21/23 19:23 Blood Culture - Preliminary Blood - Venous No growth after 48 hours. 11/21/23 19:23 Blood Culture - Preliminary Blood - Venous No growth after 48 hours. Assessment and Plan (1) Decompensated hepatic cirrhosis: Status: Acute (2) Abdominal pain: Status: Acute (3) Acute anemia: Status: Acute Plan 53F PMH hepatitis-C cirrhosis with esophageal varices and ascites, former IV drug use disorder on methadone, hypothyroidism, COPD not on home oxygen, Crohn's disease, rheumatoid arthritis, hypothyroidism, CKD admitted for evaluation of decompensated hepatic cirrhosis with acute on chronic anemia and concern for acute GIB Acute on chronic anemia with concern for UGIB with decompensated hepatic cirrosis H/H improved to 7.1/21.7%--> 6.3/20.0%. Received 2 units packed red blood cells in the ED 11/20. Give additional 1 unit packed red blood cells 11/22. hgb improved to 8 Continue IV PPI, octreotide (no known hx varices). EGD scheduled for today Diagnostic paracentesis not indicative of SBP. Continue ctx for ppx Given albumin 25% x 4 11/21 GI input appreciated hemolysis workup-negative plan for EGD today Acute Abd pain due to ascites r/t above plan as above CKD stage 3 renal function baseline COPD no exacerbation, continue home inhalers Hypothyroidism continue levothyroxine Coagulopathy r/t cirrhosis, stable Chronic pancytopenia r/t cirrhosis, stable DVT ppx- SCPs due to possible gi bleed full code reason for continued hospitalization:egd today Quality Stroke Does the patient have a stroke diagnosis?: No VTE Prior VTE?: No VTE Risk Level:: Medical - moderate - high VTE Device Contraindication: N/A - Device Ordered VTE Drug Contraindication: Treatment Not Indicated
--- NOTE | 2023-11-24 11:19 | HO.ANESPROP2 ---
[facility] Active Problems Active Problems: All Active Problems Decompensated hepatic cirrhosis (Acute) Abdominal pain (Acute) Acute anemia (Acute) Pancytopenia (Acute) RHINA (acute kidney injury) (Acute) Peritonitis, spontaneous bacterial (Acute) Mid back pain (Acute) Flank pain (Acute) Shoulder blade pain (Acute) History of hepatitis C (Acute) COPD (chronic obstructive pulmonary disease) (Acute) RHINA (acute kidney injury) (Acute) Breast cancer screening by mammogram (Acute) Cervical cancer screening (Acute) Hypoglycemia (Acute) Sarcopenia (Acute) Nephropathy (Acute) Elevated BUN (Acute) Liver cirrhosis (Acute) Ascites of liver (Acute) Hypertension, essential (Acute) Hypothyroidism (Acute) Iron deficiency anemia (Acute) Pleural effusion, right (Acute) Heme positive stool (Acute) Coagulopathy (Acute) Pleural effusion (Acute) Restlessness and agitation (Acute) Breast lump on left side at 11 o'clock position (Acute) Open wound of left breast (Acute) Left breast abscess (Acute) Encounter for routine gynecological examination (Acute) Edema of both ankles (Acute) Cellulitis (Acute) Diabetic ulcer of left foot (Acute) Obesity due to excess calories (Acute) Anemia (Acute) Hospital discharge follow-up (Acute) E. coli sepsis (Acute) Pressure ulcer of foot, stage 1 (Acute) Acute anemia (Acute) Bacteremia, escherichia coli (Acute) Hepatitis (Acute) Water retention (Acute) Cystitis (Acute) Dysuria (Acute) Encounter for general adult medical examination with abnormal findings (Acute) Allergic rhinitis (Acute) Lipid disorder (Acute) Rosacea (Acute) Rheumatoid arthritis (Acute) Herpes simplex antibody positive (Acute) Diabetes 1.5, managed as type 2 (Acute) Crohn's disease (Acute) Past Medical History Medical History COPD (chronic obstructive pulmonary disease) History of central line-associated bloodstream infection (CLABSI) Liver cirrhosis Acute on chronic anemia Ascites Pancytopenia History of hepatitis C Hydrothorax Pleural effusion, right Iron deficiency anemia Ascites of liver Hypertension, essential Hypothyroidism Allergic rhinitis Lipid disorder Rosacea Rheumatoid arthritis 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 Other Mental health disorder Substance use disorder Family history of problems with anesthesia: No Surgical History Surgical History History of esophagogastroduodenoscopy (EGD) Hx of colonoscopy History of hernia repair History of bowel resection History of appendectomy History of Problems with Anesthesia: No Social History Social History Household Members: None Housing: Apartment Are you a primary director critical care to a significant other at home: No Do you presently have visiting nurse or other home services: No Unable to assess alcohol history related to: Unknown Alcohol intake: never Patient Tobacco Use Status: Current everyday Tobacco user Tobacco use type: Cigarette Cigarettes Per Day: 5 Years Smoked: 17 years old e-Cigarette/Vaping Use: Never Used service: No Current occupational status: employed Cognitive needs: No Hearing needs: No Vision needs: No Meds Allergies Allergy/AdvReac Type Severity Reaction Status Date / Time ciprofloxacin [Cipro] Allergy Unknown swelling Verified 11/21/23 18:12 of the throat , hives nitrofurantoin AdvReac Liver Verified 11/21/23 18:12 [From Macrobid] cirrhosis decompensation Active Medications: Current Medications Acetaminophen (Acetaminophen 325 Mg Tablet) 650 mg PO Q6H PRN PRN Reason: Pain, Mild (Pain Scale 1-3), fever or headache Last Admin: 11/23/23 09:31 Dose: 650 mg Acyclovir (Acyclovir 200 Mg Capsule) 400 mg PO BEDTIME FLORENCIO Last Admin: 11/23/23 22:04 Dose: 400 mg Calcium Carbonate (Calcium Carbonate 750 Mg Tab.Chew) 750 mg PO Q4H PRN PRN Reason: Heartburn Carvedilol (Carvedilol 6.25 Mg Tablet) 6.25 mg PO BID FLORENCIO; Protocol Last Admin: 11/24/23 08:40 Dose: 6.25 mg Cyclobenzaprine HCl (Cyclobenzaprine Hcl 5 Mg Tablet) 5 mg PO BEDTIME FLORENCIO Last Admin: 11/23/23 22:04 Dose: 5 mg Docusate Sodium (Docusate Sodium 100 Mg Capsule) 100 mg PO BID PRN PRN Reason: Constipation Last Admin: 11/23/23 23:03 Dose: 100 mg Fluticasone Propionate (Fluticasone Propionate Nasal 16 Gm [place]) 1 spray NOSTRIL-B DAILY PRN PRN Reason: Allergy Symptoms Furosemide (Furosemide 40 Mg Tablet) 40 mg PO BID [facility]; Protocol Last Admin: 11/24/23 08:40 Dose: 40 mg Hydromorphone HCl (Hydromorphone Hcl 1 Mg/Ml Syringe) 1 mg IVPUSH Q4H PRN; Protocol PRN Reason: Pain, Severe (Pain Scale 7-10) Last Admin: 11/24/23 08:52 Dose: 1 mg Octreotide Acetate 500 mcg/ (Sodium Chloride) 501 mls @ 50.1 mls/hr IVCONT .Q10H [facility] Last Admin: 11/24/23 04:28 Dose: 50 mcg/hr, 50.1 mls/hr Ceftriaxone Sodium 2 gm/ (Sodium Chloride) 50 mls @ 100 mls/hr IV Q24H [facility] Last Infusion: 11/23/23 23:08 Dose: Infused Levothyroxine Sodium (Levothyroxine Sodium 50 Mcg Tablet) 50 mcg PO DAILY@0600 [facility] Last Admin: 11/24/23 05:35 Dose: Not Given Magnesium Hydroxide (Milk Of Magnesia 30 Ml Oral.Susp) 30 ml PO DAILY PRN PRN Reason: Constipation Melatonin (Melatonin 3 Mg Tablet) 6 mg PO BEDTIME PRN PRN Reason: Insomnia Methadone HCl (Methadone Hcl 20 Mg/2 Ml Oral.Conc) 80 mg PO DAILY [facility] Last Admin: 11/24/23 08:41 Dose: 80 mg Multivitamins/Vitamin C (Multivitamin Tablet) 1 tab PO DAILY [facility] Last Admin: 11/23/23 08:18 Dose: 1 tab Naloxone HCl (Naloxone Hcl 0.4 Mg/Ml Vial) 0.04 mg IVPUSH Q5M PRN PRN Reason: Excessive sedation or RR < 8 Ondansetron HCl (Ondansetron Hcl 4 Mg/2 Ml Vial) 4 mg IVPUSH Q8H PRN PRN Reason: Nausea and Vomiting Pantoprazole Sodium (Pantoprazole Sodium 40 Mg/10 Ml Vial) 40 mg IVPUSH BID@0630,1630 [facility] Last Admin: 11/24/23 05:37 Dose: 40 mg Polyethylene Glycol (Polyethylene Glycol 3350 17 Gm Powd.Pack) 17 gm PO DAILY [facility] Last Admin: 11/23/23 08:18 Dose: 17 gm Rifaximin (Rifaximin 550 Mg Tablet) 550 mg PO BID [facility] Last Admin: 11/23/23 22:04 Dose: 550 mg Sodium Chloride (0.9 % Sodium Chloride Flush 3 Ml Syringe) 3 ml IVFLUSH QSHIFT [facility] Last Admin: 11/24/23 08:47 Dose: Not Given Spironolactone (Spironolactone 25 Mg Tablet) 50 mg PO BID [facility]; Protocol Last Admin: 11/24/23 08:40 Dose: 50 mg Home Medications ?Medication ?Instructions ?Recorded ?Confirmed ?Last Taken ?Type methadone 10 mg/mL oral concentrate 80 mg PO DAILY 05/04/21 11/22/23 11/21/23 History multivitamin 1 tab PO DAILY 07/28/22 11/22/23 11/21/23 History fluticasone propionate 50 1 spray intranasal DAILY PRN 10/26/22 11/22/23 Unknown History mcg/actuation nasal Allergy Symptoms spray,suspension (Flonase Allergy Relief) furosemide 20 mg tablet 40 mg PO BID 11/22/23 11/22/23 11/21/23 History spironolactone 50 mg tablet 50 mg PO BID 11/22/23 11/22/23 11/21/23 History Exam Height,Weight and Vital Signs: Height 5 ft 4 in Weight 81.7 kg Last Vital Signs Temp 98.5 F 11/24/23 07:46 Pulse 70 11/24/23 07:46 Resp 18 11/24/23 07:46 BP 120/64 11/24/23 07:46 Pulse Ox 95 11/24/23 07:46 O2 Del Method Room Air 11/24/23 07:46 Pertinent Lab Results Pertinent Lab Results: Laboratory Tests 11/21/23 11/21/23 11/21/23 19:23 19:25 19:34 WBC 4.1 L RBC 1.78 L Hgb 5.1 L* Hct 17.0 L* MCV 95.5 MCH 28.7 MCHC 30.0 L RDW 17.0 H Plt Count 80 L MPV 11.5 Immature Gran % (Auto) 0.5 H Neut % (Auto) 76.3 H Lymph % (Auto) 10.0 L [place] % (Auto) 11.5 H Eos % (Auto) 1.5 Baso % (Auto) 0.2 Lymph # (Auto) 0.4 L [place] # (Auto) 0.5 Eos # (Auto) 0.1 Baso # (Auto) 0.0 Abs Immat Gran (auto) 0.02 Absolute Neuts (auto) 3.1 Absolute Nucleated RBC 0.000 Nucleated RBC % (auto) 0.0 Smear Tech's Comments Absolute Retic Percent Retic Immature Retic Fraction Retic Hgb Equivalent Hold Purple Top PT 30.8 H D INR 2.6 H D APTT 23.3 L Sodium 138 Potassium 4.2 Chloride 107 Carbon Dioxide 22 Anion Gap 13 BUN 25 H Creatinine 2.12 H Estim Creat Clear Calc 31.9 Estimated GFR 24 Random Glucose 202 H Haptoglobin Lactic Acid 1.4 Calcium 7.8 L Magnesium 1.7 Total Bilirubin 1.0 Direct Bilirubin 0.6 H AST 22 ALT 15 Alkaline Phosphatase 105 Ammonia Lactate Dehydrogenase Total Protein 5.1 L Albumin 2.3 L Lipase 54 Urine Color Urine Appearance Urine pH Ur Specific [place] Urine Protein Urine Glucose (UA) Urine Ketones Urine Blood Urine Nitrite Ur Leukocyte Esterase Peritoneal WBC Peritoneal RBC Periton Neutrophils Periton Lymphocytes Peritoneal Monocytes Peritoneal Other Cells Urine Opiates Screen Ur Buprenorphine Scrn Ur Oxycodone Screen Urine Methadone Screen Urine Fentanyl Screen Ur Barbiturates Screen Ur Phencyclidine Scrn Ur Amphetamines Screen U Benzodiazepines Scrn Urine Cocaine Screen U Marijuana (THC) Screen Influenza Type A (PCR) NEGATIVE Influenza Type B (PCR) NEGATIVE RSV RNA Qual (PCR) NEGATIVE SARS-CoV-2 RNA (RT-PCR) NEGATIVE Blood Type A Positive Antibody Screen POSITIVE Antibody Identification Anti-K STEPHANIE, Polyspecific NEGATIVE Positive STEPHANIE Work-up TNP Crossmatch See Detail Crossmatch (AHG) See Detail Blood Bank Comment Technical 11/21/23 11/21/23 11/21/23 19:35 20:44 21:44 WBC RBC Hgb Hct MCV MCH MCHC RDW Plt Count MPV Immature Gran % (Auto) Neut % (Auto) Lymph % (Auto) [place] % (Auto) Eos % (Auto) Baso % (Auto) Lymph # (Auto) [place] # (Auto) Eos # (Auto) Baso # (Auto) Abs Immat Gran (auto) Absolute Neuts (auto) Absolute Nucleated RBC Nucleated RBC % (auto) Smear Tech's Comments Absolute Retic Percent Retic Immature Retic Fraction Retic Hgb Equivalent Hold Purple Top SEE NOTE PT INR APTT Sodium Potassium Chloride Carbon Dioxide Anion Gap BUN Creatinine Estim Creat Clear Calc Estimated GFR Random Glucose Haptoglobin Lactic Acid Calcium Magnesium Total Bilirubin Direct Bilirubin AST ALT Alkaline Phosphatase Ammonia 64 H Lactate Dehydrogenase Total Protein Albumin Lipase Urine Color Yellow Urine Appearance Clear Urine pH 5.5 Ur Specific [place] 1.015 Urine Protein Negative Urine Glucose (UA) Negative Urine Ketones Negative Urine Blood Negative Urine Nitrite Negative Ur Leukocyte Esterase Negative Peritoneal WBC Peritoneal RBC Periton Neutrophils Periton Lymphocytes Peritoneal Monocytes Peritoneal Other Cells Urine Opiates Screen POSITIVE H Ur Buprenorphine Scrn Not Detected Ur Oxycodone Screen Not Detected Urine Methadone Screen Positive H Urine Fentanyl Screen Not Detected Ur Barbiturates Screen Not Detected Ur Phencyclidine Scrn Not Detected Ur Amphetamines Screen Not Detected U Benzodiazepines Scrn Not Detected Urine Cocaine Screen Not Detected U Marijuana (THC) Screen Not Detected Influenza Type A (PCR) Influenza Type B (PCR) RSV RNA Qual (PCR) SARS-CoV-2 RNA (RT-PCR) Blood Type Antibody Screen Antibody Identification STEPHANIE, Polyspecific Positive STEPHANIE Work-up Crossmatch Crossmatch (AHG) Blood Bank Comment 11/22/23 11/22/23 11/22/23 10:22 15:00 17:21 WBC 3.2 L RBC 2.32 L D Hgb 7.1 L D 7.2 L Hct 21.7 L D 22.5 L MCV 93.5 MCH 30.6 MCHC 32.7 RDW 17.2 H Plt Count 64 L MPV 11.5 Immature Gran % (Auto) 0.6 H Neut % (Auto) 71.0 Lymph % (Auto) 15.6 L [place] % (Auto) 9.7 Eos % (Auto) 2.8 Baso % (Auto) 0.3 Lymph # (Auto) 0.5 L [place] # (Auto) 0.3 Eos # (Auto) 0.1 Baso # (Auto) 0.0 Abs Immat Gran (auto) 0.02 Absolute Neuts (auto) 2.3 Absolute Nucleated RBC 0.000 Nucleated RBC % (auto) 0.0 Smear Tech's Comments Absolute Retic Percent Retic Immature Retic Fraction Retic Hgb Equivalent Hold Purple Top PT INR APTT Sodium 140 Potassium 4.3 Chloride 111 H Carbon Dioxide 24 Anion Gap 9 L BUN 22 H Creatinine 1.81 H Estim Creat Clear Calc 37.4 Estimated GFR 29 Random Glucose 184 H Haptoglobin Lactic Acid Calcium 7.6 L Magnesium Total Bilirubin 1.0 Direct Bilirubin AST 21 ALT 13 Alkaline Phosphatase 102 Ammonia Lactate Dehydrogenase Total Protein 5.0 L Albumin 2.2 L Lipase Urine Color Urine Appearance Urine pH Ur Specific [place] Urine Protein Urine Glucose (UA) Urine Ketones Urine Blood Urine Nitrite Ur Leukocyte Esterase Peritoneal WBC 0.164 Peritoneal RBC < 0.002 Periton Neutrophils 33 Periton Lymphocytes 8 Peritoneal Monocytes 20 Peritoneal Other Cells 39 Urine Opiates Screen Ur Buprenorphine Scrn Ur Oxycodone Screen Urine Methadone Screen Urine Fentanyl Screen Ur Barbiturates Screen Ur Phencyclidine Scrn Ur Amphetamines Screen U Benzodiazepines Scrn Urine Cocaine Screen U Marijuana (THC) Screen Influenza Type A (PCR) Influenza Type B (PCR) RSV RNA Qual (PCR) SARS-CoV-2 RNA (RT-PCR) Blood Type Antibody Screen Antibody Identification STEPHANIE, Polyspecific Positive STEPHANIE Work-up Crossmatch Crossmatch (AHG) Blood Bank Comment 11/23/23 11/23/23 11/23/23 06:27 14:28 14:30 WBC 2.1 L RBC 2.12 L Hgb 6.3 L* 7.5 L Hct 20.0 L* 23.3 L MCV 94.3 MCH 29.7 MCHC 31.5 RDW 16.9 H Plt Count 62 L MPV 12.0 Immature Gran % (Auto) 0.5 H Neut % (Auto) 64.5 Lymph % (Auto) 20.6 [place] % (Auto) 11.5 H Eos % (Auto) 2.4 Baso % (Auto) 0.5 Lymph # (Auto) 0.4 L [place] # (Auto) 0.2 Eos # (Auto) 0.1 Baso # (Auto) 0.0 Abs Immat Gran (auto) 0.01 Absolute Neuts (auto) 1.4 L Absolute Nucleated RBC 0.000 Nucleated RBC % (auto) 0.0 Smear Tech's Comments VERIFIED Absolute Retic 0.048 Percent Retic 2.3 H Immature Retic Fraction 39.0 H Retic Hgb Equivalent 24.8 L Hold Purple Top PT INR APTT Sodium 143 Potassium 3.9 Chloride 109 H Carbon Dioxide 27 Anion Gap 11 L BUN 19 H Creatinine 1.52 H Estim Creat Clear Calc 44.2 Estimated GFR 36 Random Glucose 83 Haptoglobin 68 Lactic Acid Calcium 8.6 D Magnesium Total Bilirubin Direct Bilirubin AST ALT Alkaline Phosphatase Ammonia Lactate Dehydrogenase 131 Total Protein Albumin Lipase Urine Color Urine Appearance Urine pH Ur Specific [place] Urine Protein Urine Glucose (UA) Urine Ketones Urine Blood Urine Nitrite Ur Leukocyte Esterase Peritoneal WBC Peritoneal RBC Periton Neutrophils Periton Lymphocytes Peritoneal Monocytes Peritoneal Other Cells Urine Opiates Screen Ur Buprenorphine Scrn Ur Oxycodone Screen Urine Methadone Screen Urine Fentanyl Screen Ur Barbiturates Screen Ur Phencyclidine Scrn Ur Amphetamines Screen U Benzodiazepines Scrn Urine Cocaine Screen U Marijuana (THC) Screen Influenza Type A (PCR) Influenza Type B (PCR) RSV RNA Qual (PCR) SARS-CoV-2 RNA (RT-PCR) Blood Type Antibody Screen Antibody Identification STEPHANIE, Polyspecific Positive STEPHANIE Work-up Crossmatch Crossmatch (AHG) Blood Bank Comment 11/24/23 06:51 WBC 2.1 L RBC 2.62 L D Hgb 8.0 L Hct 24.7 L MCV 94.3 MCH 30.5 MCHC 32.4 RDW 16.1 H Plt Count 59 L MPV 11.5 Immature Gran % (Auto) 0.0 Neut % (Auto) 64.9 Lymph % (Auto) 19.2 L [place] % (Auto) 12.1 H Eos % (Auto) 3.3 Baso % (Auto) 0.5 Lymph # (Auto) 0.4 L [place] # (Auto) 0.3 Eos # (Auto) 0.1 Baso # (Auto) 0.0 Abs Immat Gran (auto) 0.00 Absolute Neuts (auto) 1.4 L Absolute Nucleated RBC 0.000 Nucleated RBC % (auto) 0.0 Smear Tech's Comments VERIFIED Absolute Retic Percent Retic Immature Retic Fraction Retic Hgb Equivalent Hold Purple Top PT INR APTT Sodium 141 Potassium 3.5 Chloride 104 Carbon Dioxide 28 Anion Gap 13 BUN 19 H Creatinine 1.53 H Estim Creat Clear Calc 43.9 Estimated GFR 36 Random Glucose 101 Haptoglobin Lactic Acid Calcium 8.5 Magnesium Total Bilirubin 1.7 H Direct Bilirubin AST 19 ALT 10 Alkaline Phosphatase 90 Ammonia Lactate Dehydrogenase Total Protein 5.5 L Albumin 3.1 L Lipase Urine Color Urine Appearance Urine pH Ur Specific [place] Urine Protein Urine Glucose (UA) Urine Ketones Urine Blood Urine Nitrite Ur Leukocyte Esterase Peritoneal WBC Peritoneal RBC Periton Neutrophils Periton Lymphocytes Peritoneal Monocytes Peritoneal Other Cells Urine Opiates Screen Ur Buprenorphine Scrn Ur Oxycodone Screen Urine Methadone Screen Urine Fentanyl Screen Ur Barbiturates Screen Ur Phencyclidine Scrn Ur Amphetamines Screen U Benzodiazepines Scrn Urine Cocaine Screen U Marijuana (THC) Screen Influenza Type A (PCR) Influenza Type B (PCR) RSV RNA Qual (PCR) SARS-CoV-2 RNA (RT-PCR) Blood Type Antibody Screen Antibody Identification STEPHANIE, Polyspecific Positive STEPHANIE Work-up Crossmatch Crossmatch (AHG) Blood Bank Comment Airway Mallampati Class: II (missing teeth) TM Dist: >3cm Neck ROM: Full Heart: rrr Lungs: cta Assessment and Plan Assessment Anesthesia Assessment: Anesthesia Plan Discussed and Chart Reviewed Final Anesthetic Review Family History of Problems with Anesthesia: No History of Problems with Anesthesia: No NPO: Yes ASA Class: III Final Preanesthetic Review: No Changes in Pt Med Stat, Meds/Allgs Chart Reviewed and Consent Obtained/Reviewed Patient Risk: Intermediate Procedure Risk: Intermediate Anesthetic Plan Anesthetic Plan: MAC: Disposition: Standard PACU
[2023-11-24 11:29] LABS: Albumin Peritoneal Fluid 0.9; Total Protein Peritoneal Fluid 1.4; pH Peritoneal Fluid 7.46
[2023-11-24 11:30] LABS: Glucose Peritoneal Fluid 171; LDH Peritoneal Fluid 50
[2023-11-24 11:36] LABS: Glucose, Whole Blood 88 mg/dL (60-115)
--- NOTE | 2023-11-24 12:36 | MHC.SHP ---
Pre-Procedural Eval Section A - 24 Hr Update-Section A only Date of Service: 11/24/23 The patient is an INPATIENT: Yes The patient has been examined within 24 hours of the surgical procedure. The History & Physical has been completed within 30 days and I have reviewed it.: Yes Section B - Complete if H&P > 30 days Chief Complaint: Abdominal pain, anemia, cirrhosis Allergies: Allergies Allergy/AdvReac Type Severity Reaction Status Date / Time ciprofloxacin [Cipro] Allergy Unknown swelling Verified 11/24/23 11:37 of the throat , hives nitrofurantoin AdvReac Liver Verified 11/24/23 11:37 [From Macrobid] cirrhosis decompensation Plan Diagnosis/Plan: Unchanged I have reviewed the history and physical and performed a pertinent physical examination on my patient. No changes have occurred unless specified. Time Spent With Patient Time: Total time managing care of this patient today ____ minutes.
--- NOTE | 2023-11-24 13:33 | P.OP_ITS ---
Operative Note Operative Note Date of Service: 11/24/23 Narrative: Procedure: Esophagogastroduodenoscopy Endoscopist: Romana Garcia MD Indication: Anemia, cirrhosis Anesthesia Provider: Dr Shaista Hackett Anesthesia Type: MAC ?? EGD Procedure:?? The procedure, indications, preparation and potential complications were revi ewed with the patient, who indicated understanding and gave written informed consent to proceed. A physical exam was performed. The endoscope was introduced through the mouth, and advanced to the second part of duodenum. The mucosa was carefully examined on slow withdrawal of the endoscope. The patient tolerated the procedure well. There were no immediate complications.? ? EGD Findings:? * Esophagus:? Normal mucosa noted in the entire esophagus. The Z line was at 38 cm. Flat varices. * Stomach:??Diffuse congestion and erythema in mosaic pattern consistent with portal hypertensive gastropathy was noted in the whole stomach. * Duodenum:? Edema and congestion of duodenal mucosa consistent with portal hypertensive duodenopathy was noted in the whole duodenum. ? EGD Impressions:? * Flat varices * Portal hypertensive gastropathy * Portal hypertensive duodenopathy ?? Recommendations:?? * No source of bleeding noted on upper endoscopy * Can switch PPI to PO and discontinue Octreotide * Pt has outpatient colo booked for Mar 2024, will attempt to get this expedited
--- NOTE | 2023-11-24 13:33 | W.PM.OPN ---
Operative Note Operative Note Date of Service: 11/24/23 Narrative: Procedure: Esophagogastroduodenoscopy Endoscopist: Romana Garcia MD Indication: Anemia, cirrhosis Anesthesia Provider: Dr Shaista Hackett Anesthesia Type: MAC ?? EGD Procedure:?? The procedure, indications, preparation and potential complications were reviewed with the patient, who indicated understanding and gave written informed consent to proceed. A physical exam was performed. The endoscope was introduced through the mouth, and advanced to the second part of duodenum. The mucosa was carefully examined on slow withdrawal of the endoscope. The patient tolerated the procedure well. There were no immediate complications.? ? EGD Findings:? Esophagus:? Normal mucosa noted in the entire esophagus. The Z line was at 38 cm. Flat varices. Stomach:??Diffuse congestion and erythema in mosaic pattern consistent with portal hypertensive gastropathy was noted in the whole stomach. Duodenum:? Edema and congestion of duodenal mucosa consistent with portal hypertensive duodenopathy was noted in the whole duodenum. ? EGD Impressions:? Flat varices Portal hypertensive gastropathy Portal hypertensive duodenopathy ?? Recommendations:?? No source of bleeding noted on upper endoscopy Can switch PPI to PO and discontinue Octreotide Pt has outpatient colo booked for Mar 2024, will attempt to get this expedited
--- NOTE | 2023-11-24 13:46 | PM.DS ---
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 Patient states she was sent to the ER for evaluation of low hemoglobin. She denies melena, hematochezia or hematemesis. Patient states she has been having abdominal discomfort for the last 1 week which is generalized, nonradiating and without any relieving factors. Patient states the abdominal pain was initially intermittent but progressed to being constant. Patient has had poor p.o. intake due to abdominal pain. Also has been having abdominal distention. Patient states her diuretics were cut back due to rising creatinine. Denies fever, chills, chest pain, palpitations, shortness of breath, changes in urinary habits. In the emergency department, hemoglobin found to be 5.1 and 2 unit PRBC ordered along with IV Protonix, IV octreotide and IV ceftriaxone. hospital course: Patient was admitted for acute on chronic anemia due to upper GI bleed with decompensated hepatic cirrhosis. She received 3 units total PRBC and hemoglobin improved to 8. Was treated with IV Protonix and octreotide. EGD was done which showed flat varices, portal gastropathy but no active bleeding hemolysis workup was negative plan to follow up outpatient with GI for colonoscopy. Patient also had acute abdominal pain due to ascites, she underwent paracentesis and labs were not consistent with SBP. For CKD 3 her renal function remained at baseline. For COPD she was stable on her home inhalers. For hypothyroidism she was continued on levothyroxine. Patient is feeling better will be discharged home Time Attestation Discharge Coordination Time (in mins): 37 Quality: Safe Use of Opioids Does Pt have an Active Cancer Diagnosis on the Problem List?: No Quality: Stroke Does the patient have a stroke diagnosis?: No Physical Exam Vital Signs: Vital Signs: Last Vital Signs Temp 97 F 11/24/23 13:23 Pulse 66 11/24/23 13:23 Resp 16 11/24/23 13:23 BP 99/53 L 11/24/23 13:23 Pulse Ox 94 11/24/23 13:23 O2 Del Method Room Air 11/24/23 13:23 BMI result Body Mass Index 30.9 General: AO X 3, no acute distress Resp: CTA bilateral, no accessory muscles used CVS: S1,S2,RRR GI: soft, non tender, non distended Neuro: motor grossly intact, alert Psych: appropriate affect, appropriate insight DS: Data Data Completed and Pending Completed studies during hospitalization [Text1]: Procedures Drainage of Left Foot Skin, External Approach (05/04/21) Drainage of Right Pleural Cavity with Drainage Device, Open Approach (07/28/22) Drainage of Right Pleural Cavity, Percutaneous Approach (10/26/22) Excision of Duodenum, Via Natural or Artificial Opening Endoscopic, Diagnostic (10/26/22) Excision of Stomach, Pylorus, Via Natural or Artificial Opening Endoscopic, Diagnostic (10/26/22) Insertion of Infusion Device into Superior Vena Cava, Percutaneous Approach (10/26/22) Insertion of Totally Implantable Vascular Access Device into Chest Subcutaneous Tissue and Fascia, Percutaneous Approach (10/26/22) Inspection of Lower Intestinal Tract, Via Natural or Artificial Opening Endoscopic (10/26/22) Introduction of Vasopressor into Peripheral Vein, Percutaneous Approach (07/28/22) Occlusion of Esophageal Vein with Extraluminal Device, Via Natural or Artificial Opening Endoscopic (10/26/22) Transfusion of Nonautologous Frozen Plasma into Peripheral Vein, Percutaneous Approach (10/26/22) Transfusion of Nonautologous Red Blood Cells into Peripheral Vein, Percutaneous Approach (10/26/22) Ultrasonography of Superior Vena Cava, Guidance (10/26/22) Labs on day of discharge: Laboratory Results - last 24 hr 11/21/23 11/22/23 11/23/23 19:34 15:00 14:28 WBC RBC Hgb Hct MCV MCH MCHC RDW Plt Count MPV Immature Gran % (Auto) Neut % (Auto) Lymph % (Auto) [place] % (Auto) Eos % (Auto) Baso % (Auto) Lymph # (Auto) [place] # (Auto) Eos # (Auto) Baso # (Auto) Abs Immat Gran (auto) Absolute Neuts (auto) Absolute Nucleated RBC Nucleated RBC % (auto) Smear Tech's Comments Sodium Potassium Chloride Carbon Dioxide Anion Gap BUN Creatinine Estim Creat Clear Calc Estimated GFR POC Glucose Random Glucose Haptoglobin 68 Calcium Total Bilirubin AST ALT Alkaline Phosphatase Total Protein Albumin Peritoneal pH 7.46 Peritoneal Tot Protein 1.4 Peritoneal Albumin 0.9 Peritoneal LDH 50 Peritoneal Glucose 171 Blood Type A Positive Antibody Screen POSITIVE Antibody Identification Anti-K STEPHANIE, Polyspecific NEGATIVE Positive STEPHANIE Work-up TNP Crossmatch See Detail Crossmatch ([facility] [place]) See Detail Blood Bank Comment Technical 11/23/23 11/24/23 11/24/23 14:30 06:51 11:33 WBC 2.1 L RBC 2.62 L D Hgb 7.5 L 8.0 L Hct 23.3 L 24.7 L MCV 94.3 MCH 30.5 MCHC 32.4 RDW 16.1 H Plt Count 59 L MPV 11.5 Immature Gran % (Auto) 0.0 Neut % (Auto) 64.9 Lymph % (Auto) 19.2 L [place] % (Auto) 12.1 H Eos % (Auto) 3.3 Baso % (Auto) 0.5 Lymph # (Auto) 0.4 L [place] # (Auto) 0.3 Eos # (Auto) 0.1 Baso # (Auto) 0.0 Abs Immat Gran (auto) 0.00 Absolute Neuts (auto) 1.4 L Absolute Nucleated RBC 0.000 Nucleated RBC % (auto) 0.0 Smear Tech's Comments VERIFIED Sodium 141 Potassium 3.5 Chloride 104 Carbon Dioxide 28 Anion Gap 13 BUN 19 H Creatinine 1.53 H Estim Creat Clear Calc 43.9 Estimated GFR 36 POC Glucose 88 Random Glucose 101 Haptoglobin Calcium 8.5 Total Bilirubin 1.7 H AST 19 ALT 10 Alkaline Phosphatase 90 Total Protein 5.5 L Albumin 3.1 L Peritoneal pH Peritoneal Tot Protein Peritoneal Albumin Peritoneal LDH Peritoneal Glucose Blood Type Antibody Screen Antibody Identification STEPHANIE, Polyspecific Positive STEPHANIE Work-up Crossmatch Crossmatch ([facility] [place]) Blood Bank Comment Preliminary micro results at discharge 11/22/23 15:00 Anaerobic Culture - Preliminary Ascites Fluid No growth to date. Body Fluid Culture - Preliminary No growth to date. 11/21/23 19:23 Blood Culture - Preliminary Blood - Venous No growth after 48 hours. 11/21/23 19:23 Blood Culture - Preliminary Blood - Venous No growth after 48 hours. Discharge Plan Discharge Anticipated Discharge Date/Time: 11/24/23 13:43 Patient Disposition: Home, Self-Care Discharge Diagnosis: Anemia, Ascites Referrals: David Ortiz MD [Primary Care Provider] - 1 Week Romana Garcia MD [Physician] - 1 Week Discharge Medications: Continued omeprazole 20 mg capsule,delayed release(DR/EC) 20 mg PO BEDTIME Qty: 90 0RF acyclovir 400 mg tablet 400 mg PO BEDTIME Qty: 90 0RF carvedilol 6.25 mg tablet 6.25 mg PO BID Qty: 180 0RF ondansetron 4 mg tablet,disintegrating 4 mg PO Q8H PRN (Reason: for nausea/vomiting) 30 Days Qty: 10 0RF levothyroxine 50 mcg tablet 50 mcg PO DAILY@0600 Qty: 90 0RF methadone 10 mg/mL Concentrate 80 mg PO DAILY Rx Instructions: PT REC'D 27 TAKE HOME BOTTLES FROM [employer] ON 10/11/22 multivitamin Tablet 1 tab PO DAILY fluticasone propionate [Flonase Allergy Relief] 50 mcg/actuation spray,suspension 1 spray intranasal DAILY PRN (Reason: Allergy Symptoms) Rx Instructions: administer into each nostril spironolactone 50 mg tablet 50 mg PO BID furosemide 20 mg tablet 40 mg PO BID Protocol: Hold for SBP< HOLD for SBP < : 90 cyclobenzaprine 5 mg tablet 5 mg PO BEDTIME 30 Days Qty: 30 0RF rifaximin 550 mg tablet 550 mg PO BID 90 Days Qty: 180 1RF Discharge Orders: Discharge Order (Routine); Ordered 11/24/23 Ordered By: Abisai Briceño Diet: Advance to usual diet Activity on Discharge: As tolerated Stand Alone Forms: Patient Portal Discharge page Print Language: Irish Care Plan Goals: recovery Health Concerns: cirrhosis, anemia Plan of Treatment: continue omeprazole, follow up gi Assessment: see above
[2023-11-24] MEDS: Heparin Sodium,Porcine Flush 50 UNITS/5 ML SYRINGE IVFLUSH (14:55)
== END 2023-11-24 15:19 | disposition home or self-care (01) | DRG 433 ==
LOC: HO.ED 19:11 → HO.EDOVER 22:23 → HO.IMC 11-22 19:19
PROVIDERS: Internal Medicine; Physician Assistant; Physician Assistant Surgical; Admitting Provider Student in an Organized Health Care Education/Training Program; Emergency Provider Emergency Medicine; PCP Internal Medicine; Visit Provider Internal Medicine
PROC: 0DJ08ZZ Inspection of Upper Intestinal Tract, Via Natural or Artificial Opening Endoscopic (ICD-10-PCS; CPT 43235; principal; 2023-11-24 14:10)
DX: K74.69 Other cirrhosis of liver (principal); D61.818 Other pancytopenia; D68.4 Acquired coagulation factor deficiency; K92.2 Gastrointestinal hemorrhage, unspecified; D62 Acute posthemorrhagic anemia; F11.20 Opioid dependence, uncomplicated; R18.8 Other ascites; I85.10 Secondary esophageal varices without bleeding; K76.6 Portal hypertension; K50.90 Crohn's disease, unspecified, without complications; E03.9 Hypothyroidism, unspecified; M06.9 Rheumatoid arthritis, unspecified; K31.89 Other diseases of stomach and duodenum; N18.30 Chronic kidney disease, stage 3 unspecified; D69.59 Other secondary thrombocytopenia; Z20.822 Contact with and (suspected) exposure to COVID-19; Z86.19 Personal history of other infectious and parasitic diseases; Z76.82 Awaiting organ transplant status; Z79.890 Hormone replacement therapy; Z79.899 Other long term (current) drug therapy
CPT/HCPCS: 0241U; 36415; 49083; 74176; 76705; 80048; 80053; 80076; 80307; 81003; 82042; 82140; 82945; 82947; 83010; 83605; 83615; 83690; 83735; 83986; 84157; 85014; 85018; 85025; 85045; 85610; 85730; 86850; 86870; 86880; 86900; 86901; 86902; 86920; 86922; 87040; 87070; 87073; 87205; 89051; 99285; J0696; J1171; J1200; J1642; J2003; J2270; J2354; J2405; J2470; J2704; P9016; P9047

== ENCOUNTER 2023-11-21 22:17 | Outpatient (BNV) | payer MEDICARE, MEDICAID, SELFPAY | END 2023-11-22 14:30 | PROVIDERS: Admitting Provider Student in an Organized Health Care Education/Training Program; Emergency Provider Emergency Medicine; PCP Internal Medicine; Visit Provider Radiology Diagnostic Radiology | DX: R18.8 Other ascites (principal) | CPT/HCPCS: 49083 ==

== ENCOUNTER → 2023-11-21 22:17 | Outpatient (BNV) | payer MEDICARE, MEDICAID, SELFPAY | PROVIDERS: Admitting Provider Student in an Organized Health Care Education/Training Program; Emergency Provider Emergency Medicine; PCP Internal Medicine; Visit Provider Student in an Organized Health Care Education/Training Program | DX: R18.8 Other ascites (principal); D64.9 Anemia, unspecified | CPT/HCPCS: 99223; 99232; 99239 ==

== ENCOUNTER → 2023-11-21 22:17 | Outpatient (BNV) | payer MEDICARE, MEDICAID, SELFPAY | PROVIDERS: Admitting Provider Student in an Organized Health Care Education/Training Program; Emergency Provider Emergency Medicine; PCP Internal Medicine; Visit Provider Internal Medicine | DX: K72.90 Hepatic failure, unspecified without coma (principal); K74.60 Unspecified cirrhosis of liver; D64.9 Anemia, unspecified; N17.9 Acute kidney failure, unspecified | CPT/HCPCS: 43235; 99223; 99499 ==

== ENCOUNTER 2023-11-27 13:40 | Emergency (ER) | payer MEDICARE, MEDICAID, SELFPAY ==
[2023-11-27 14:15] VITALS: BP 130/76; PULSE 97; RESP 18; TEMP 37.2; O2SAT 100; BMI 29.1
== END 2023-11-27 17:20 | disposition left against medical advice (07) ==
PROVIDERS: Emergency Provider Emergency Medicine; PCP Internal Medicine
DX: R10.9 Unspecified abdominal pain (principal)
CPT/HCPCS: 99281

== ENCOUNTER 2023-12-02 07:47 | Emergency (ER) | payer MEDICARE, MEDICAID, SELFPAY ==
[2023-12-02] VITALS (12 sets, daily range): BP systolic 98–123; BP diastolic 50–77; PULSE 56–92; RESP 16–20; TEMP 36.7–37.2; O2SAT 98–100; BMI 30.1
--- NOTE | ~2023-12-02 | CT_ITS ---
EXAMINATION: CT ABDOMEN AND PELVIS WITHOUT CONTRAST CLINICAL INFORMATION: Abdominal pain. Diarrhea. History of colitis. COMPARISON: CT 11/21/2023 TECHNIQUE: Multidetector volumetric imaging was performed from the superior aspect of the liver through the pubic symphysis. Sagittal and coronal reformatted images were obtained on the technologist's workstation. This CT examination was performed using dose optimization techniques as appropriate, variously including the following: *Automated exposure control *Adjustment of mA and/or kV according to patient size (this includes techniques or standardized protocols for targeted exams where dose is matched to indication/reason for exam; i.e. extremities or head) *Use of iterative reconstruction technique DLP: 725 mGy-cm FINDINGS: LUNG BASES: Probable minimal basilar atelectasis bilaterally. Lung bases are otherwise clear. LIVER, GALLBLADDER, AND BILIARY TREE: Unchanged cirrhotic morphology of the liver. No new lesions identified. No intra or extra hepatic duct dilation. Gallbladder is unremarkable. PANCREAS: Unremarkable. SPLEEN: Splenomegaly with the spleen measuring up to 19 cm craniocaudal ADRENAL GLANDS: Unremarkable. KIDNEYS AND URETERS: The kidneys are normal in size, shape, and attenuation. No hydronephrosis, or hydroureter. Stranding. There are 3 mm nonobstructing calculi at the knees. BLADDER: Essentially decompressed, limiting its evaluation. GASTROINTESTINAL TRACT: Distal esophagus appears mildly circumferentially thickened, though the appearance is equivocal. Stomach is unremarkable. The small and large bowel are normal in caliber. No definite wall thickening or bowel wall inflammatory changes are seen. ABDOMINAL WALL: There is anasarca of the body wall, similar to prior. Are changes from prior hernia repair. Small volume ascites is unchanged from prior. LYMPH NODES: Normal. VASCULAR: The aorta is nondilated. There are a few distended Gracie mesenteric collateral vessels compatible with history of portal hypertension. This appear overall similar to the prior and there is mildly increased attenuation of the mesenteric fat secondary to edema or venous congestion which again is similar to prior. PELVIC VISCERA: The uterus and adnexa are unremarkable. OSSEOUS STRUCTURES: Mild degenerative changes of the midcervical lumbar spine. No acute or aggressive bony abnormalities. CT/CT abdomen pelvis wo IV con IMPRESSION: Cirrhotic appearance of liver and sequela of portal hypertension. There are no definite acute findings in the abdomen or pelvis to account for the patient's current presentation. Fleischner guidelines were followed. Electronically signed by: Agusto Valdez MD 12/02/2023 01:20 PM EDT RP
--- NOTE | 2023-12-02 08:25 | ED.ABDPAIN ---
HPI - Abdominal Pain General Chief Complaint: Abdominal Pain Stated Complaint: stomach pain, fever, vomiting Time Seen by Provider: 12/02/23 07:59 Source: patient and old records reviewed Mode of arrival: ambulatory Limitations: no limitations History of Present Illness ED Provider: PATRICK HPI narrative: 53 yo female with PMH of hep C cirrhosis hx of esophageal varices and ascites though recent tap this month only 40cc and negative for SBP, former IVDA on methadone, hypothyroidism, COPD, Crohns, RA, CKD, who was just admitted here 11/20 to 11/23 for anemia and decompensated cirrhosis she was treated with 3 units of PRBCs for hemoglobin 5.1, IV protonix, IV octreotide, IV ceftriaxone. She notes since discharge she has had diarrhea and has a hx of c diff. She now reports diffuse abdominal pain and yellow loose sools. She had a fever of 102 last night. She passed gas this AM. She states for her fever she took MOTRIN. She denies cough, sick contacts, dysuria. Notes her leg swelling is at baseline. Had EGD - flat varices, portal gastropathy but no active bleeding. MD elicited complaint: abdominal pain Pertinent past history: gastrointestinal bleeding and other Onset (ago): day(s) (reports since last Tuesday ) Pain Consistency: constant Location: diffuse Severity: severe Quality: stabbing Radiation: none Migration to: no migration Exacerbating factors: eating and movement Relieving factors: nothing Context: history of similar episodes Associated symptoms: other (diarrhea, fevers, chills) Treatments prior to arrival: NSAIDs Related Data Home Medications ?Medication ?Instructions ?Recorded ?Confirmed methadone 10 mg/mL oral concentrate 80 mg PO DAILY 05/04/21 11/25/23 multivitamin 1 tab PO DAILY 07/28/22 11/25/23 fluticasone propionate 50 1 spray intranasal DAILY PRN 10/26/22 11/25/23 mcg/actuation nasal Allergy Symptoms spray,suspension (Flonase Allergy Relief) furosemide 20 mg tablet 40 mg PO BID 11/22/23 11/25/23 spironolactone 50 mg tablet 50 mg PO BID 11/22/23 11/25/23 Previous Rx's ?Medication ?Instructions ?Recorded omeprazole 20 mg capsule,delayed 20 mg PO BEDTIME #90 caps 06/23/23 release rifaximin 550 mg tablet 550 mg PO BID 90 days #180 tabs 07/25/23 acyclovir 400 mg tablet 400 mg PO BEDTIME #90 tabs 08/29/23 carvedilol 6.25 mg tablet 6.25 mg PO BID #180 tabs 09/05/23 cyclobenzaprine 5 mg tablet 5 mg PO BEDTIME 30 days #30 tabs 10/07/23 levothyroxine 50 mcg tablet 50 mcg PO DAILY@0600 #90 tabs 10/27/23 ondansetron 4 mg disintegrating 4 mg PO Q8H PRN for 10/27/23 tablet nausea/vomiting 30 days #10 tabs Allergies Allergy/AdvReac Type Severity Reaction Status Date / Time ciprofloxacin [Cipro] Allergy Unknown swelling Verified 12/02/23 07:55 of the throat , hives nitrofurantoin AdvReac Liver Verified 12/02/23 07:55 [From Macrobid] cirrhosis decompensation Review of Systems Review of Systems Constitutional : No Weight loss, pos Fever, pos Chills ENT/Mouth : No sore throat, No Rhinorrhea Eyes: No Swelling, No Redness Cardiovascular : No Chest Pain, No SOB, pos edema Respiratory : No Cough, No Sputum, No Wheezing Gastrointestinal : Positive Nausea, no Vomiting, positive Diarrhea, positive abdominal Pain, No Hematochezia, No Melena Genitourinary : No Dysuria, No Urinary Frequency, No Hematuria, No Urgency Musculoskeletal : No joint pain, No Myalgias, No Joint Swelling Skin : No Skin Lesions, No rash Neuro : No Weakness, No Numbness, No Dizziness, No Headache Psych : No Anxiety/Panic, No Depression All other systems reviewed and are negative. [facility] Past Medical History Attestation statement: The following information was validated with the patient. 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 Other Mental health disorder Substance use disorder Social History Social History Household Members: None Housing: Apartment Are you a primary healthcare management consultant to a significant other at home: No Do you presently have visiting nurse or other home services: No Unable to assess alcohol history related to: Unknown Alcohol intake: never Patient Tobacco Use Status: Never used Tobacco Tobacco use type: Cigarette Cigarettes Per Day: 5 Years Smoked: 17 years old Smoked in Last 30 Days: No e-Cigarette/Vaping Use: Never Used Use of substances other than those prescribed or required for medical reasons: Yes Substance Use Type: Heroin Advance Directives: Yes Advance Directives Information Provided: No Advance Directives on File: No Do you have a plan to hurt others: No Plan Patient : No service: No Current occupational status: employed Cognitive needs: No Hearing needs: No Vision needs: No Physical Exam ED Vital Signs: Vital Signs - 24 hr 12/02/23 07:52 12/02/23 09:42 12/02/23 10:23 Temperature 98.6 F 98.6 F 98.3 F Pulse Rate 92 83 79 Respiratory Rate 18 18 18 Blood Pressure 123/77 120/60 112/50 L Pulse Oximetry 99 98 99 Oxygen Delivery Method Room Air Room Air Room Air BMI result Body Mass Index 30.1 Appearance: Alert. Oriented X3. No acute distress. Eyes: Pupils equal, round and reactive to light. scleral icterus ENT: Pharynx normal. Neck: Normal inspection. Neck supple. CVS: Normal heart rate and rhythm. Pulses normal. Respiratory: No respiratory distress. Breath sounds normal. Abdomen: Soft and diffuse ttp but no ascites noted Skin: Skin warm and dry. pale skin color. Normal skin turgor. Extremities: 2+ pitting lower extremity edema. No calf ttp Neuro: Oriented X 3. No motor deficit. No sensory deficit. Course Course Course Narrative: refusing repeat labs refuses 2nd blood culture Reevaluation(s) Reevaluation #1: lactic acidosis chronic and due to cirrhosis not infection or severe sepsis Reevaluation #2: signed out to Yane pending CT scan and repeat lactic acidosis/CBC Medical Decision Making Medical Decision Making [facility] Narrative: 53 yo female with PMH of hep C cirrhosis hx of esophageal varices and ascites though recent tap this month only 40cc and negative for SBP, former IVDA on methadone, hypothyroidism, COPD, Crohns, RA, CKD here with diarrhea, diffuse abdominal pain and reported fever she tells me she has a hx of c diff at this time labs, CT scan, IV dilaudid for pain, stool studies. She will need UA and CXR as well given reported fevers at home. She just had SBP work up which was negative - very low susp for SBP at this time Differential Diagnosis Differential Diagnoses: The differential diagnosis associated with the presentation includes colitis, diarrhea, abdominal pain Admission/Observation Consideration of admission/observation: Escalation of care including admission/observation considered Lab Data [facility] Lab Attestation statement: I reviewed the patient's lab results. 12/02/23 09:38 12/02/23 09:38 Labs: Lab Results 12/02/23 12/02/23 Range/Units 09:38 09:39 WBC 2.2 L (4.8-10.8) X10*3/uL RBC 2.32 L (4.20-5.50) X10*6/uL Hgb 7.1 L (12.0-16.0) g/dl Hct 22.8 L (37.0-47.0) % MCV 98.3 H (80.0-98.0) fL MCH 30.6 (27.0-33.0) pg MCHC 31.1 (31.0-35.0) g/dl RDW 16.6 H (11.0-16.0) % Plt Count 49 L (160-400) X10*3/uL MPV 11.5 (9.4-12.3) fL Immature Gran % (Auto) 0.0 (0.0-0.4) % Neut % (Auto) 75.6 H (45-73) % Lymph % (Auto) 11.7 L (20-40) % [place] % (Auto) 10.4 (2-11) % Eos % (Auto) 1.8 (0-4) % Baso % (Auto) 0.5 (0-2) % Lymph # (Auto) 0.3 L (1.2-4.9) X10*3/uL [place] # (Auto) 0.2 (0.1-1.2) X10*3/uL Eos # (Auto) 0.0 (0.0-0.4) X10*3/uL Baso # (Auto) 0.0 (0.0-0.2) X10*3/uL Abs Immat Gran (auto) 0.00 (0.00-0.03) X10*3/uL Absolute Neuts (auto) 1.7 L (2.0-8.3) x10*3/uL Absolute Nucleated RBC 0.000 (0.0-0.012) X10*3/uL Nucleated RBC % (auto) 0.0 (0.0-0.2) /100WBC PT 30.3 H (10.9-12.4) SEC INR 2.6 H (0.9-1.1) Sodium 144 (135-145) mmol/L Potassium 3.4 (3.3-5.1) mmol/L Chloride 106 (96-108) mmol/L Carbon Dioxide 27 (22-29) mmol/L Anion Gap 14 (12-20) BUN 25 H (9-16) mg/dL Creatinine 1.88 H (0.5-1.4) mg/dL Estim Creat Clear Calc 35.3 Estimated GFR 28 Random Glucose 317 H (60-115) mg/dL Lactic Acid 2.8 H* (0.5-2.0) mmol/L Calcium 7.8 L D (8.4-10.2) mg/dL Magnesium 1.8 (1.6-2.6) mg/dL Total Bilirubin 1.2 H (0.0-1.0) mg/dL Direct Bilirubin 0.7 H (0.0-0.5) mg/dL AST 19 (5-31) U/L ALT 10 (0-31) U/L Alkaline Phosphatase 89 (39-117) U/L Ammonia 51 (13-55) umol/L Troponin I High Sens < 2.7 (<3.5-17.0) ng/L C-Reactive Protein 3.98 H (< or = 0.50) mg/dL B-Natriuretic Peptide 159 H (<100) pg/mL Total Protein 5.2 L (6.5-8.0) g/dL Albumin 2.7 L (3.5-5.0) g/dL Lipase 47 (8-78) U/L Procalcitonin 0.13 ng/mL Influenza Type A (PCR) NEGATIVE (Negative) Influenza Type B (PCR) NEGATIVE (Negative) RSV RNA Qual (PCR) NEGATIVE (Negative) SARS-CoV-2 RNA (RT-PCR) NEGATIVE (Negative) Independent Interpretation I performed an independent interpretation of an: CT Scan External Record Review External record reviewed: Inpatient record Medications Administered Discontinued Medications Generic Name Dose Route Start Last Admin Trade Name Freq PRN Reason Stop Dose Admin Hydromorphone HCl 1 mg 12/02/23 08:11 12/02/23 09:39 Hydromorphone Hcl 1 Mg/Ml Syringe IVPUSH 12/02/23 08:12 1 mg ONCE ONE Administration Protocol Sodium Chloride 500 mls @ 500 mls/hr 12/02/23 10:11 12/02/23 10:19 Ns IV 12/02/23 11:10 500 mls/hr .Q1H ONE Administration Critical Care Time Critical Care Time Critical Care Time: Yes Total Critical Care Time: 40 Attestation: review of records, repeat IV dilaudid with improvement in pain, repeat labs I attest to this time spent taking care of the patient Discharge Plan Discharge Clinical Impression: Acidosis, lactic, Chronic anemia Abdominal pain Qualifiers: Abdominal location: unspecified location Qualified Code(s): R10.9 - Unspecified abdominal pain Patient Disposition: Still a Patient Prescriptions: No Action omeprazole 20 mg capsule,delayed release(DR/EC) 20 mg PO BEDTIME Qty: 90 0RF acyclovir 400 mg tablet 400 mg PO BEDTIME Qty: 90 0RF carvedilol 6.25 mg tablet 6.25 mg PO BID Qty: 180 0RF ondansetron 4 mg tablet,disintegrating 4 mg PO Q8H PRN (Reason: for nausea/vomiting) 30 Days Qty: 10 0RF levothyroxine 50 mcg tablet 50 mcg PO DAILY@0600 Qty: 90 0RF methadone 10 mg/mL Concentrate 80 mg PO DAILY Rx Instructions: PT REC'D 27 TAKE HOME BOTTLES FROM [employer] ON 10/11/22 multivitamin Tablet 1 tab PO DAILY fluticasone propionate [Flonase Allergy Relief] 50 mcg/actuation spray,suspension 1 spray intranasal DAILY PRN (Reason: Allergy Symptoms) Rx Instructions: administer into each nostril spironolactone 50 mg tablet 50 mg PO BID furosemide 20 mg tablet 40 mg PO BID Protocol: Hold for SBP< HOLD for SBP < : 90 cyclobenzaprine 5 mg tablet 5 mg PO BEDTIME 30 Days Qty: 30 0RF rifaximin 550 mg tablet 550 mg PO BID 90 Days Qty: 180 1RF Print Language: Nepali
[2023-12-02] MEDS: HYDROmorphone HCl 1 MG/ML SYRINGE IVPUSH ×2 (09:39→12:15)
[2023-12-02 09:55] LABS: Basophils Percent Auto 0.5 % (0-2); Eosinophils Percent Auto 1.8 % (0-4); Hematocrit 22.8 % (37.0-47.0); Hemoglobin 7.1 g/dl (12.0-16.0); Lymphocytes Absolute Auto 0.3 X10*3/uL (1.2-4.9); Lymphocytes Percent Auto 11.7 % (20-40); Mean Corpuscular HGB Conc 31.1 g/dl (31.0-35.0); Mean Corpuscular Hemoglobin 30.6 pg (27.0-33.0); Mean Corpuscular Volume 98.3 fL (80.0-98.0); Mean Platelet Volume 11.5 fL (9.4-12.3); Monocytes Absolute Auto 0.2 X10*3/uL (0.1-1.2); Monocytes Percent Auto 10.4 % (2-11); Neutrophils Absolute Auto 1.7 x10*3/uL (2.0-8.3); Neutrophils Percent Auto 75.6 % (45-73); Platelet Count 49 X10*3/uL (160-400); Red Blood Count 2.32 X10*6/uL (4.20-5.50); Red Cell Distribution Width 16.6 % (11.0-16.0); White Blood Count 2.2 X10*3/uL (4.8-10.8)
[2023-12-02 10:00] LABS: INTERNATIONAL NORM RATIO 2.6 (0.9-1.1); Prothrombin Time 30.3 SEC (10.9-12.4)
--- NOTE | 2023-12-02 10:01 | MHC.EDTECH ---
Labs drawn by VICTOR HUGO Gomez from port with HANNAH Meade (myself) at bedside. Pt refusing peripheral blood stick for labs citing she has no veins. Allowed myeto stick 1 time after persuasion but the stick was unsuccessful. VICTOR HUGO Gomez notified. Provider Sada Remy DO aware.
--- NOTE | 2023-12-02 10:09 | PC.NURSE ---
Pt is a very difficult peripheral stick. Port-a-cath was accessed with #20 trae amparo popwer port needle. D/T difficult peripheral access 1st blood cultures were drawn from port after a [id number] waste. MC made aware.
[2023-12-02 10:13] LABS: Lactic Acid 2.8 mmol/L (0.5-2.0)
[2023-12-02 10:17] LABS: Ammonia 51 umol/L (13-55)
[2023-12-02] MEDS: 0.9 % Sodium Chloride 500 ML IV (10:19)
[2023-12-02 10:20] LABS: B Type Natriuretic Peptide 159 pg/mL (<100)
[2023-12-02 10:23] LABS: Troponin-I High Sensitivity < 2.7 ng/L (<3.5-17.0)
[2023-12-02 10:24] LABS: Alanine Aminotransferase 10 U/L (0-31); Albumin Level 2.7 g/dL (3.5-5.0); Alkaline Phosphatase 89 U/L (39-117); Anion Gap 14 (12-20); Aspartate Amino Transferase 19 U/L (5-31); Bilirubin Direct 0.7 mg/dL (0.0-0.5); Bilirubin Total 1.2 mg/dL (0.0-1.0); Blood Urea Nitrogen 25 mg/dL (9-16); C Reactive Protein 3.98 mg/dL (< or = 0.50); Calcium 7.8 mg/dL (8.4-10.2); Carbon Dioxide 27 mmol/L (22-29); Chloride 106 mmol/L (96-108); Creatinine Clr Calc Pharmacy 35.3; Estimated Glomerular Filt Rate 28; Glucose Random 317 mg/dL (60-115); Lipase 47 U/L (8-78); Magnesium 1.8 mg/dL (1.6-2.6); Potassium 3.4 mmol/L (3.3-5.1); Sodium 144 mmol/L (135-145); Total Protein 5.2 g/dL (6.5-8.0)
[2023-12-02 10:31] LABS: Influenza A PCR NEGATIVE (Negative); Influenza B PCR NEGATIVE (Negative); Resp Syncy Virus RNA Qual PCR NEGATIVE (Negative); SARS COV2 PCR INHOUSE NEGATIVE (Negative)
[2023-12-02 10:33] LABS: Procalcitonin 0.13 ng/mL
[2023-12-02 11:47] LABS: Reflex Lactate? Lactic Acid Added
--- NOTE | 2023-12-02 12:22 | PC.NURSE ---
medicated for persistent right lower back pain. additional labs from port as ordred. pt remains aoxo3. describes pain as cramping/spasms Awaits CT reading.
--- NOTE | 2023-12-02 12:24 | PC.NURSE ---
abd is distended but moderately soft. pt states it feels hard to me
[2023-12-02 12:29] LABS: Hematocrit 21.6 % (37.0-47.0); Mean Corpuscular Hemoglobin 30.7 pg (27.0-33.0); Mean Corpuscular Volume 99.1 fL (80.0-98.0); Mean Platelet Volume 11.9 fL (9.4-12.3); Red Blood Count 2.18 X10*6/uL (4.20-5.50); Red Cell Distribution Width 16.5 % (11.0-16.0)
[2023-12-02 12:33] LABS: White Blood Count 1.5 X10*3/uL (4.8-10.8)
[2023-12-02 12:34] LABS: Hemoglobin 6.7 g/dl (12.0-16.0); Platelet Count 47 X10*3/uL (160-400)
[2023-12-02 13:19] LABS: ~Lactic Acid-LAB USE ONLY 2.1 mmol/L (0.5-2.0)
--- NOTE | 2023-12-02 14:24 | PC.NURSE ---
Up to BR w/o difficulty. unlabored resp. skin pwd. awaits transfusion.
[2023-12-02 14:25] LABS: Reflex Lactate? 2 Y
[2023-12-02] MEDS: Acetaminophen 325 MG TABLET 650 MG PO (14:39)
[2023-12-02] MEDS: diphenhydrAMINE HCL 25 MG CAPSULE 50 MG PO (14:39)
[2023-12-02] MEDS: Tbo-Filgrastim 300 MCG/0.5 ML SYRINGE SUBCUT (16:30)
--- NOTE | 2023-12-02 18:45 | PC.NURSE ---
received care of pt at this time, with 1 unit of PRB infused. D/C blood at this time
--- NOTE | 2023-12-02 18:46 | PC.NURSE ---
resting queitly. NAD. blood almost completely transfused. hasn't requested pain meds.
--- NOTE | 2023-12-02 19:08 | PC.NURSE ---
received report from Patricia GAY, assume care of pt at this time
== END 2023-12-02 19:46 | disposition home or self-care (01) ==
PROVIDERS: Emergency Medicine; Emergency Provider Internal Medicine; PCP Internal Medicine
DX: K74.60 Unspecified cirrhosis of liver (principal); D63.8 Anemia in other chronic diseases classified elsewhere; R14.0 Abdominal distension (gaseous); E87.20 Acidosis, unspecified; R10.9 Unspecified abdominal pain; D64.9 Anemia, unspecified; K59.00 Constipation, unspecified; R50.9 Fever, unspecified; R06.02 Shortness of breath; I12.9 Hypertensive chronic kidney disease with stage 1 through stage 4 chronic kidney disease, or unspecified chronic kidney disease; E13.22 Other specified diabetes mellitus with diabetic chronic kidney disease; N18.9 Chronic kidney disease, unspecified; R11.2 Nausea with vomiting, unspecified; F11.20 Opioid dependence, uncomplicated; D61.818 Other pancytopenia; F17.210 Nicotine dependence, cigarettes, uncomplicated; Z79.899 Other long term (current) drug therapy; Z03.818 Encounter for observation for suspected exposure to other biological agents ruled out
CPT/HCPCS: 0241U; 36415; 74176; 80048; 80076; 82140; 83605; 83690; 83735; 83880; 84145; 84484; 85025; 85027; 85610; 86140; 86850; 86870; 86900; 86901; 86902; 86920; 86922; 87040; 96360; 96367; 96372; 96374; 99285; J1171; J1447; J1642; P9016

== ENCOUNTER 2024-01-09 14:15 | Outpatient (AMB) | payer OTHER, SELFPAY ==
--- NOTE | 2024-01-09 14:20 | A.OFFVIS_ITS ---
Vital Signs 01/09/24 14:23 Height 5 ft 4 in Weight 150 lb BMI 25.7 BP 117/56 L Blood Pressure Location Lt brachial Position Sitting Pulse 91 Intake Visit Reasons: cirrhosis Intake Note: Beata presents in the office as a follow up fir cirrhosis. CC: She states that she is feeling okay today. She is not having any GI concerns. 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 05/10/22: Referred by Dr Ortiz for ERNA. Prev pt of Dr Bryant. Main complaints today are fatigue, loss of energy, hair loss. To recap, pt had hx of Hep C contracted through IVDU. Underwent treatment with Sovaldi and Ribavirin x 2014 (Dr Waterman, [facility]) with reported SVR. She is unable to recall when she was diagnosed with cirrhosis but tells me that she had been seeing Dr Bryant for it x many years. Documentation from 2020 reports ascites on imaging and pt was started on aldactone 50 however she does not remember being on any meds. Last imaging: last ultrasound and CT 04/2021: Ascites. Cirrhotic liver. Last endoscopy: Per pt done in 2019 for crohns, and variceal screening and was overall normal. No records available. In terms of her worsening anemia, initially had a drop in counts in April 2021 when she admitted for E coli sepsis and C Diff and at that time attributed to inflammatory anemia. Since then has been seeing Electrical Maintenance Technician as outpatient. Started on IV infusions but with less than expected response. Then Hb dropped again to 6.8-7 earlier this year. Pt reports no gastrointestinal complaints to include abd pain, N,V, D. No blood in stool or melena. No changes in appetite. Does not report unintentional weight loss. Pt also has hx of Crohns as above however reports endoscopic remission since her bowel surgeries in as above. Has not taken any meds for it. Last flare requiring pred was . Fam hx: mother and mat aunt: Crohns. Grandfather: etOH related cirrhosis. Correspondence: On 05/27/22 @ 09:06 Romana Garcia Wrote To David Ortiz (2) Mandy Could we pls look into why the pt canceled her procedures? These were booked as urgent due to anemia and cirrhosis. Kindly rebook at the earliest, can be with any provider with availability. And pls educate the pt on importance to keep the appt. CC: PCP as an FYI. 08/06/22: Admission to the hospital on 07/28 for nausea, vomiting and shortness of breath, was found to have large right-sided pleural effusion for which she had thoracostomy tube placement. She received pain medication following which she became very lethargic and had an aspiration event. She was subsequently intubated and then transferred to [facility] due to lack of ICU bed at [facility] or nearby hospitals. At age 2 cc, she was managed for aspiration pneumonia as well as pleural effusion. Chest tube was removed 07/30. Pleural effusion suggestive of hepatic hydrothorax. Once she was extubated and was on 3 L O2, she was transferred to regular floor, however she then left AMA on 08/01. Today, scheduled for a video visit. Reports worsening of shortness of breath over the last 2 days, has also noticed decrease in urine output in the same time. No nausea, vomiting, diarrhea. No chest pain or abdominal pain. She does report taking furosemide 40 mg daily. 08/18/22: Presenting for in person follow up after another ER visit 08/09/22. Went in for concern of decreased urine output. Was found to have normal kidney function but worsening R sided pleural effusion. Does not appear pt underwent thoracentesis or adjustment in her diuretics at that time. Today, coming in with her mom. Pt seated in a wheelchair. Describes compliance with furosemide 40 and low salt diet. Postponed her EGD/colo (initially scheduled for 08/12/22) as wasnt sure if she should be drinking golytely prep. Pt and mom have questions re shunt or drain placement for pleural effusion. 09/17/22: Reports feeling much better in terms of her abd distention and shortness of breath since increasing diuretics from last visit. Has been able to return to work due to better energy levels. Does report intolerance with Spironolactone - gets severe abd pain and nausea with Darrell. Did discontinue it for a few days but got same symptoms on rechallenge. Has icnreased lasix to 80 therefore, instead of 60, as she is not taking spirinolactone. Reports tried to reach our office for further instructions on CXR but could not get through - no correspondence in chart re her phone call however. 10/26/22-11/04/22: Hospitalised for worsening anemia noted on labs done pre-procedure to port placement. 10/27/22 EGD/colo: 1. Esophageal varices (banding) 2. Portal hypertensive gastropathy 3. Normal duodenum 4. Poor prep 5. No active bleeding 6. Internal and external hemorrhoids Path: A. Duodenum, biopsy: Duodenal mucosa within normal limits; preserved villous architecture and no increased intraepithelial lymphocytes seen. B. Stomach, random, biopsy: Gastric antral and body mucosa within normal limits; negative for Helicobacter pylori, intestinal metaplasia and dysplasia. 11/15/22: Doing much better in terms of breathing. Has better energy levels. Able to cont work although taking frequent breaks for bathroom since she is on diuretics is cumbersome. Although didnt report this when she was hospitalised, pt does tell me today tjat she was frequently skipping diuretics to avoid going to the bathroom frequently and was most likely reason for rapid reaccumulation of volume overload. Currently reports good adherence to all meds as below. Furosemide 80mg/day Spironolactone 150mg/day Lactulose titrated to 2-3 BMs Carvedilol 3.125 BID (metoprolol has been discontinued) EGD and colo results reviewed that was performed in house. Pt is aware that due to poor prep, will need a repeat colo within a year. We also discussed in itiating referral to [facility] for transplant evaluation which the pt is agreeable to today. She also has a port and has VNA services which we can utilise for blood draws and diuretic monitoring. 12/13/22: Seen in office for follow up. Diuretics were adjusted after last visit due to bump in Cr noted to 1.3 from 0.9. Currently on: Furosemide 60mg/day Spironolactone 150mg/day Lactulose titrated to 2-3 BMs Carvedilol 3.125 BID Reports increase in abd girth as well as shortness of breath on moderate activity. Still able to cont day to day function but notices this was not present when she was on previous dose. Labs reviewed from today - Cr up to 1.3 again despite a lower dose of diuretics from before. Reports good compliance with salt discretion which is evidences by urine lytes as well. [facility] referral was sent out 4 weeks ago but pt is yet to hear back. Echo still pending. 02/25/23: Was seen in the interim Dr Redmond, reported borderline pressures at that time and diuretics were adjusted. Was also restarted on PO iron supplements for ERNA. 03/30/23: Here for follow up. Feeling much better than the last time she was seen. Main CC is hairfall. Otherwise from liver standpoint reports no abd pain, no abd distention, rash or fatigue. 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 Also established at [facility] and undergoing work up for transplant evaluation but reports was told has low MELD and will likely not need to be listed. Pt has not gotten Boost yet - will follow up. Otherwise weight curve reassuringly stable. Current meds: Furosemide 40mg/day Spironolactone 100mg/day Lactulose discontinued earlier this month by [facility] Carvedilol 6.25 BID Ferrous sulphate 325 mg PO daily 05/23/23: Was sg for EGD/colo on 05/02 however while pt was prepping for colo she developed severe hypoglycemia down to 29mcg/dl and passed out because of it. The neighbour who lives downstairs heard her fall and got help. Since then has been given Glucagon nasal powder. Pt reports has been getting low blood sugars in the 40-60s intermittently since Fall of 2022. Has not seen by Endocrine recently. Was seeing [facility] Endo for hypothyroidism but lost to follow up. Of note - from [facility] as part of workup for liver transplant evaluation, was recommended to get pap smear and mammo. Was seeing [facility] FRUIT BAR MAKER and was sg for pap smear in 2019 but seems did not make the appt. Current meds: Spironolactone 100mg/day Carvedilol 6.25 BID 07/25/23: Had blood work done on 07/[address] Jessie Mackenzie from [facility]. Cr shot up to 1.78. Was advised to cut down both diuretics to Lasix 20 BID [place] 50 once daily ?? Med list a bit unclear as based on prev visit she was not on any lasix but when she went to ER on 06/01 was documented to be on lasix 20 BID which was then increased further to 40 BID by the ER provider due to significant edema. Suspect RHINA on 07/14 likely 2/2 overuse of lasix. Currently reports extreme exhaustion for the past 2 weeks. Feels thirsty all the time despite reduction in diuretics. Has also been noticing increased swelling in R sided abd. Also reports itching on legs. They also feel crampy and restless amna at night time. CT abd on 07/31 - appt with [facility] August. 10/04/23: 1. Cirrhosis of liver. No focal liver lesion. 2. Splenomegaly. 3. Small to moderate volume of abdominal ascites. 4. Recannulated umbilical vein. Prominent veins in the subcutaneous tissue of the abdominal wall consistent with portal hypertension. 11/09/23: Here for follow up. Reports good response to diuretics Current meds: lasix 40 BID darrell 100 daily rifaximin 550 BID coreg 6.25 BID 01/09/24: Had 2 back to back hospitalizations. 11/20-11/23 - presented to [facility] on my behest for anemia and RHINA. EGD without any obv bleeding. Booked for OP colo. 12/01 - was seen in ER for worsening diarrhea x 4-5 days. Unfortunately discharged back home. 12/07-12/19 - went to [facility] with worsening abd pain and distention. Eventually found to have c diff colitis on 12/11. Reports resolution of diarrhea within 4 days of taking Vancomycin. Completed PO regimen 125 mg QID x 10 days total. Currently, reports no abd pain, N,V, D. Continues to be OFF diuretics due to RHINA while she was hospitalised. Cr at discharge on 10/19 was 1.9 down from 2.5 on 12/17. Pt also off rifaximin and only taking lactulose every other day for goal 2 BMs per day. Hesitant to increase since her episode of CDI. In terms of anemia, did require PRBC transfusion while she in [facility] as well. Concern for possible splenic sequestration vs hemolytic anemia as there was no overt GI bleed noted. [place] booked for Mar currently, pt unable to stay on cancelation list as needs at least 2-3 weeks notice to arrange transport. 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 Other Mental health disorder Substance use disorder Social History Household Members: None Housing: Apartment Are you a primary ambulatory care nurse to a significant other at home: No Do you presently have visiting nurse or other home services: No Unable to assess alcohol history related to: Unknown Alcohol intake: never Patient Tobacco Use Status: Never used Tobacco Tobacco use type: Cigarette Cigarettes Per Day: 5 Years Smoked: 17 years old e-Cigarette/Vaping Use: Never Used Substance Use Type: Heroin service: No Current occupational status: employed Cognitive needs: No Hearing needs: No Vision needs: No Review of Systems Const All systems reviewed & are unremarkable except as noted in HPI and below Physical Exam Vital Signs: Last Vital Signs Pulse 91 01/09/24 14:23 BP 117/56 L 01/09/24 14:23 BMI result Body Mass Index 25.7 No acute distress, bitemporal wasting No icterus No overt respiratory distress Abdomen soft, nontender, nondistended No asterixis Assessment & Plan Assessment & Plan (1) RHINA (acute kidney injury): Code(s): N17.9 - Acute kidney failure, unspecified Category: Medical (2) Liver cirrhosis: Code(s): K74.60 - Unspecified cirrhosis of liver Category: Medical Qualifiers: Hepatic cirrhosis type: secondary biliary cirrhosis Qualified Code(s): K74.4 - Secondary biliary cirrhosis (3) Iron deficiency anemia: Code(s): D50.9 - Iron deficiency anemia, unspecified Category: Medical Qualifiers: Iron deficiency anemia type: chronic blood loss Qualified Code(s): D50.0 - Iron deficiency anemia secondary to blood loss (chronic) (4) Crohn's disease: Code(s): K50.90 - Crohn's disease, unspecified, without complications Category: Medical Qualifiers: Gastrointestinal tract location: large intestine Digestive disease complication type: without complication Qualified Code(s): K50.10 - Crohn's disease of large intestine without complications (5) Sarcopenia: Code(s): M62.84 - Sarcopenia Category: Medical Plan 1. Decomp cirrhosis: - Likely secondary to HCV (treated) + VIDES - ascites and covert HE Staying off diuretics due to RHINA. Weight stable, in fact lost a few lbs during hospitalisation. Repeat labs will be ordered. Pt also encouraged to follow up with Nephrology. Plan: - Updated MELD labs ordered - HOLD diuretics - HCC screening - US abd 11/[address] 09/2023 reviewed. Next imaging due May 2024. - Coreg 6.25 BID - low threshold to hold if Cr uptrends again - Rifaximin 550 discontinued due to recent CDI. - Lactulose for goal 2-3 BMs per day 2. RHINA: Likely pre-renal from dehydration from CDI and diarrhea. Plan: - Labs as above - HOLD diuretics - Nephrology follow up 3. ERNA: Without any overt bleeding. s/p venofer infusions. Will recheck iron panel. Pt also booked for a colo as OP. Unable to expedite this due to transportation issues as mentioned above. Follow up 4 weeks Orders: Orders Complete Blood Count no Diff 01/09/24 K72.90 - Hepatic failure, unspecified w ithout coma, K74.60 - Unspecified cirrhosis of liver Comprehensive Met. Panel 01/09/24 K72.90 - Hepatic failure, unspecified without coma, K74.60 - Unspecified cirrhosis of liver Prothrombin Time INR 01/09/24 K72.90 - Hepatic failure, unspecified without coma, K74.60 - Unspecified cirrhosis of liver IRON PROFILE 01/09/24 D61.818 - Other pancytopenia Ferritin 01/09/24 D61.818 - Other pancytopenia Coding Level of Care Code Est Pt Level 5 (68878) Complex EM visit Add On G2211 Diagnoses RHINA (acute kidney injury) N17.9 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 Crohn's disease of large intestine without complication K50.10 Gastrointestinal tract location: large intestine Digestive disease complication type: without complication Sarcopenia M62.84
[2024-01-09 14:23] VITALS: BP 117/56; PULSE 91; BMI 25.7
== END 2024-01-09 16:20 | disposition home or self-care (01) ==
PROVIDERS: PCP Internal Medicine; Visit Provider Internal Medicine
DX: K74.4 Secondary biliary cirrhosis (principal); D50.0 Iron deficiency anemia secondary to blood loss (chronic); K50.10 Crohn's disease of large intestine without complications; M62.84 Sarcopenia; N17.9 Acute kidney failure, unspecified
CPT/HCPCS: 99214; G2211

== ENCOUNTER → 2024-01-09 14:15 | Outpatient (BNVA) | payer OTHER, SELFPAY | PROVIDERS: PCP Internal Medicine; Visit Provider Internal Medicine | DX: K74.4 Secondary biliary cirrhosis (principal); K72.90 Hepatic failure, unspecified without coma; K50.10 Crohn's disease of large intestine without complications; D50.0 Iron deficiency anemia secondary to blood loss (chronic); N17.9 Acute kidney failure, unspecified; M62.84 Sarcopenia; D61.818 Other pancytopenia | CPT/HCPCS: 99212 ==

== ENCOUNTER 2024-01-19 10:59 | Outpatient (REF) | payer OTHER, SELFPAY ==
[2024-01-20 08:28] LABS: Bacterial Vaginosis PCR NEGATIVE (Negative); Candida Group PCR NOT DETECTED (Not Detect); Candida glab krusei PCR NOT DETECTED (Not Detect); Trichomonas vaginalis PCR NOT DETECTED (Not Detect)
[2024-01-20 11:39] LABS: HPV 16,18/45 See PAP report
== END 2024-01-19 11:00 | disposition home or self-care (01) ==
LOC: HO.LNP 10:59
PROVIDERS: PCP Internal Medicine; Visit Provider Advanced Practice Midwife
DX: Z01.419 Encounter for gynecological examination (general) (routine) without abnormal findings (principal); N89.8 Other specified noninflammatory disorders of vagina
CPT/HCPCS: 0352U; 87624; 88175; 99202

== ENCOUNTER 2024-01-25 16:05 | Outpatient (REF) | payer OTHER, SELFPAY ==
--- NOTE | ~2024-01-25 | MR_ITS ---
EXAMINATION: MR THORACIC SPINE WITHOUT AND WITH CONTRAST CLINICAL INFORMATION: Wedge compression fracture of T5-6 COMPARISON: None available. TECHNIQUE: MRI of the thoracic spine was obtained using routine sequences with and without contrast. Intravenous contrast: Gadavist 8 mL. FINDINGS: Exaggerated thoracic kyphosis with apex at T8-9. No listhesis. Acute to subacute compression fractures of T6, T7, T9, and T10 vertebrae. There is at least 50% vertebral body height loss of T6 with anteriorly without retropulsion. There is less than 10% vertebral body height loss of T7 without retropulsion. There is at least 70% vertebral body height loss anteriorly of T9. 3 mm retropulsion at the level of T9-10. No significant spinal canal stenosis at this level. There is less than 10% vertebral body height loss of T10. No retropulsion. Chronic compression fracture deformity of T11 without retropulsion. The remaining vertebral body heights are preserved. Multilevel disc desiccation without significant disc height loss. Multilevel endplate osteophytosis. The visualized spinal cord is normal in caliber. No abnormal cord signal or enhancement. There is no significant disc herniation, spinal canal stenosis, or neural foraminal narrowing throughout the thoracic spine. The paravertebral soft tissues are unremarkable. The imaged intrathoracic and intra-abdominal structures are grossly within normal limits. MR/MR thoracic spine wo/w con IMPRESSION: -Acute to subacute compression fractures of T6, T7, T9, and T10 vertebrae. There is 3 mm retropulsion at the level of T9-10 without significant spinal canal stenosis. -Chronic compression fracture deformity of T11 without retropulsion. -No significant spinal canal stenosis or neural foraminal narrowing throughout the thoracic spine. Electronically signed by: Duncan Maher MD 01/25/2024 05:56 PM [facility]
[2024-01-25] MEDS: gadobutroL 10 ML VIAL IVPUSH (16:53)
== END 2024-01-25 16:06 | disposition home or self-care (01) ==
LOC: HO.MRI 16:05
PROVIDERS: PCP Internal Medicine; Visit Provider Internal Medicine
DX: S22.050A Wedge compression fracture of T5-T6 vertebra, initial encounter for closed fracture (principal)
CPT/HCPCS: 72157; A9585

== ENCOUNTER 2024-02-06 08:03 | Outpatient (REF) | payer OTHER, SELFPAY ==
[2024-02-06 10:08] LABS: Hemoglobin 8.5 g/dl (12.0-16.0); Mean Corpuscular HGB Conc 31.5 g/dl (31.0-35.0); Mean Corpuscular Hemoglobin 28.6 pg (27.0-33.0); Mean Corpuscular Volume 90.9 fL (80.0-98.0); Mean Platelet Volume 11.2 fL (9.4-12.3); Red Blood Count 2.97 X10*6/uL (4.20-5.50); Red Cell Distribution Width 15.2 % (11.0-16.0); White Blood Count 4.5 X10*3/uL (4.8-10.8)
[2024-02-06 10:09] LABS: Platelet Count 91 X10*3/uL (160-400)
[2024-02-06 10:18] LABS: Alanine Aminotransferase 13 U/L (0-31); Albumin Level 3.2 g/dL (3.5-5.0); Alkaline Phosphatase 159 U/L (39-117); Anion Gap 10 (12-20); Aspartate Amino Transferase 28 U/L (5-31); Bilirubin Total 1.3 mg/dL (0.0-1.0); Blood Urea Nitrogen 15 mg/dL (9-16); Calcium 8.2 mg/dL (8.4-10.2); Carbon Dioxide 32 mmol/L (22-29); Chloride 105 mmol/L (96-108); Estimated Glomerular Filt Rate 40; Glucose Random 99 mg/dL (60-115); Potassium 3.7 mmol/L (3.3-5.1); Sodium 143 mmol/L (135-145); Total Protein 6.4 g/dL (6.5-8.0)
== END 2024-02-06 08:04 | disposition home or self-care (01) ==
LOC: HO.LAB 08:03
PROVIDERS: PCP Internal Medicine; Visit Provider Internal Medicine
DX: D61.818 Other pancytopenia (principal); K74.60 Unspecified cirrhosis of liver; K72.90 Hepatic failure, unspecified without coma; D64.9 Anemia, unspecified; Z86.19 Personal history of other infectious and parasitic diseases; N17.9 Acute kidney failure, unspecified; E16.2 Hypoglycemia, unspecified; S22.009A Unspecified fracture of unspecified thoracic vertebra, initial encounter for closed fracture; D50.0 Iron deficiency anemia secondary to blood loss (chronic); K50.10 Crohn's disease of large intestine without complications
CPT/HCPCS: 36415; 80053; 85027; 86850; 86870; 86900; 86901; 99212

== ENCOUNTER 2024-02-06 08:03 | Outpatient (AMB) | payer OTHER, SELFPAY ==
--- NOTE | 2024-02-06 08:06 | MHC.OFFVIS ---
Vital Signs 02/06/24 08:09 Height 5 ft 4 in Weight 160 lb BMI 27.5 BP 115/67 Blood Pressure Location Lt brachial Position Sitting Pulse 91 Intake Visit Reasons: 4 week follow up Intake Note: froilan presents in the office as a 4 week follow up. Allergies ciprofloxacin [Cipro] Allergy (Unknown, Verified 02/06/24 08:07) swelling of the throat , hives nitrofurantoin [From Macrobid] Adverse Reaction (Verified 02/06/24 08:07) Liver cirrhosis decompensation HPI Comments Details: This is a 51y.o female with past medical history of HCV (s/p SVR 2014) that led to liver cirrhosis, complicated by portal hypertension with ascites, small bowel Crohn's disease dx in 1994 (s/p ileocecectomy 1994, partial small bowel resection 1996, small bowel stricturoplasty 1998) currently not on any meds, who presents to our office for follow up. Recap: - Initially seen 04/2022 for ERNA and HCV cirrhosis. Booked for EGD/colo but pt canceled her procedures at that time. - 07/2022 admitted for decomp cirrhosis and resp failure 2/2 large R sided pleural effusion. Transferred from [facility] to [facility] due to ICU bed shortage. Pt left AMA from [facility]. - -09/2022 actively managed for ascites and hepatic hydrothorax with meds + jean. - 10/2022 - EGD/colo varices with EVBL, PHG. Jefferson was poor prep. Repeat recommended within a year. Got a port a cath due to poor IV access. - 11/2022 - referred to [facility] transplant hep. Now estbalished with Dr Racheal Renee. - Was doing better between fall 2022- spring 2023. - 04/2023 - syncopal episode from hypoglycemia while prepping for EGD/colo. Downstairs neightbour heard her fall and got help. Nasal glucagon. Referred to [facility] endocrine (was lost to follow up for hypothryoid) - -10/2023 - issues with renal function requiring close titration of diuretics - 10/2023 - also reported tenderness in mid to upper back. XRAY spine ordered but due to Radiology staffing issues was not read till 01/17/2024 (see below) - - had 2 back to back hospitalizations. [facility]: anemia and RHINA. [facility]: abd pain and diarrhea - C Diff colitis. Completed PO vanc. Pt was offered colo on urgent basis but declined due to transport issues. - 01/2024 - Pap smear completed (req by [facility]). HPV pos, will need repeat next year. Xrays from Oct were finally reported. Urgent MRI and referrals generated. 02/06/24: Here for follow up. XR thoracic spine was done for upper back pain that confirmed a T-spine fracture. This was followed up with MRI thoracic spine that shows acute/subacute fx in T6, T7, T9 and T10. Also with chronic T11 fracture. Pt also reports R sided pain that does not feel muscular which may potentially be due to dermatomal involvement. In addition, anemia continues to be an ongoing issue. H/H did not improve with 1u from 01/09 to 01/17. Will repeat to see if needs additional transfusions. Pt was offered earlier appt for EGD/colo but declined. Of note - pt also continues to report post prandial sx of feeling sweaty, yawning, lightheaded concerning for glycopenic sx. Of note - pt does have documented hypoglycemia episodes in the past but they resolved per her report so she did not pursue the endocrine referral that was placed earlier this year. Current meds: lasix 20 BID florence 50 BID rifaximin 550 BID coreg 6.25 BID Unable to tolerate lactulose. 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 Other Mental health disorder Substance use disorder Social History Household Members: None Housing: Apartment Are you a primary point of care technician to a significant other at home: No Do you presently have visiting nurse or other home services: No Unable to assess alcohol history related to: Unknown Alcohol intake: never Patient Tobacco Use Status: Never used Tobacco Tobacco use type: Cigarette Cigarettes Per Day: 5 Years Smoked: 17 years old e-Cigarette/Vaping Use: Never Used Substance Use Type: Heroin service: No Current occupational status: employed Cognitive needs: No Hearing needs: No Vision needs: No Female Reproductive History Menstrual Age of Menarche: 11 Review of Systems Const All systems reviewed & are unremarkable except as noted in HPI and below Physical Exam Vital Signs: Last Vital Signs Pulse 91 02/06/24 08:09 BP 115/67 02/06/24 08:09 BMI result Body Mass Index 27.5 No apparent distress Nonicteric Abdomen soft, nondistended Alert and oriented x3, no asterixis normal gait Assessment & Plan Assessment & Plan (1) Decompensated hepatic cirrhosis: Code(s): K72.90 - Hepatic failure, unspecified without coma; K74.60 - Unspecified cirrhosis of liver Category: Medical (2) Pancytopenia: Code(s): D61.818 - Other pancytopenia Category: Medical (3) History of hepatitis C: Code(s): Z86.19 - Personal history of other infectious and parasitic diseases Category: Medical (4) RHINA (acute kidney injury): Code(s): N17.9 - Acute kidney failure, unspecified Category: Medical (5) Hypoglycemia: Code(s): E16.2 - Hypoglycemia, unspecified Category: Medical (6) Thoracic spine fracture: Code(s): S22.009A - Unspecified fracture of unspecified thoracic vertebra, initial encounter for closed fracture Category: Medical (7) Iron deficiency anemia: Code(s): D50.9 - Iron deficiency anemia, unspecified Category: Medical Qualifiers: Iron deficiency anemia type: chronic blood loss Qualified Code(s): D50.0 - Iron deficiency anemia secondary to blood loss (chronic) (8) Crohn's disease: Code(s): K50.90 - Crohn's disease, unspecified, without complications Category: Medical Qualifiers: Gastrointestinal tract location: large intestine Digestive disease complication type: without complication Qualified Code(s): K50.10 - Crohn's disease of large intestine without complications Plan 1. Decomp cirrhosis: - Likely secondary to HCV (treated) + VIDES No evidence of ascites or HE today. Diuretics dose was lowered down due to slight increase in Cr. Repeat labs will be ordered. Pt also encouraged to follow up with Nephrology. Plan: - Updated MELD labs ordered - HCC screening - US abd 11/[address] 09/2023 reviewed. Next imaging due May 2024. - Coreg 6.25 BID - low threshold to hold if Cr uptrends - Next EGD due 11/2024. - Rifaximin 550 BID 2. ERNA: MIld iron deficiency based on labs. Continues without any overt bleeding despite a drop of almost of gram of Hb. Concern for possible bone marrow involvement. Will reach out to Heme. As above, was offered earlier date for EGD/colo which the pt declined. Plan: - REcheck CBC - Type and screen ordered as well in case needs a transfusion 3. RHINA: Diuretics lowered by 50% based on labs. Will recheck BMP. Pt was supposed to be seeing [facility] nephrology after discharge from the hospital but was then told they were not seeing new pts. Plan: - Labs as above - Nephrology referral at [facility] placed 4. Multiple T spine fractures Highly suggestive of underlying osteoporosis. Hx of crohns, extensive steroid exposure, fam hx of osteo ++. Plan: - Dexa ordered - Start Bob +vit D - Seeing pain management near future - Endocrine referral placed 5. ?? HYpoglycemia Sx description concerning for glycopenic sx. Was previously referred to [facility] endocrine which the pt did not pursue as started to feel better . Will refer to [facility] endocrine as now accepting new pts here. Plan: - Referral requested Follow up 4 weeks Orders: Orders Complete Blood Count no Diff Today D61.818 - Other pancytopenia Basic Metabolic Panel Today N17.9 - Acute kidney failure, unspecified Type and Screen Today D64.9 - Anemia, unspecified Referrals Nephrology Referral N17.9 - Acute kidney failure, unspecified Endocrinology Referral E16.2 - Hypoglycemia, unspecified, S22.009A - Unspecified fracture of unspecified thoracic vertebra, initial encounter for closed fracture Medications: New calcium carbonate-vitamin D3 600 mg-20 mcg (800 unit) (Caltrate with Vitamin D3) 1 tab PO DAILY 90 days 90 tabs 1RF Refilled ondansetron 4 mg PO Q8H 30 days PRN 10 tabs 0RF for nausea/vomiting Discontinued lactulose Discontinued Reason: Patient no longer taking 10 grams (15 mL) PO DAILY PRN 300 mL 0RF laxative effect Coding Level of Care Code Est Pt Level 5 (30008) Complex EM visit Add On G2211 Diagnoses Decompensated hepatic cirrhosis K72.90; K74.60 Pancytopenia D61.818 History of hepatitis C Z86.19 RHINA (acute kidney injury) N17.9 Hypoglycemia E16.2 Thoracic spine fracture S22.009A Iron deficiency anemia due to chronic blood loss D50.0 Iron deficiency anemia type: chronic blood loss Crohn's disease of large intestine without complication K50.10 Gastrointestinal tract location: large intestine Digestive disease complication type: without complication
[2024-02-06 08:09] VITALS: BP 115/67; PULSE 91; BMI 27.5
== END 2024-02-06 09:20 | disposition home or self-care (01) ==
PROVIDERS: PCP Internal Medicine; Visit Provider Internal Medicine
DX: K72.90 Hepatic failure, unspecified without coma (principal); K74.60 Unspecified cirrhosis of liver; D61.818 Other pancytopenia; Z86.19 Personal history of other infectious and parasitic diseases; S22.009A Unspecified fracture of unspecified thoracic vertebra, initial encounter for closed fracture; D50.0 Iron deficiency anemia secondary to blood loss (chronic); K50.10 Crohn's disease of large intestine without complications
CPT/HCPCS: 99214; G2211

== ENCOUNTER 2024-02-16 13:37 | Outpatient (REF) | payer OTHER, SELFPAY ==
[2024-02-16 15:38] LABS: Appearance Urine Clear; Color Urine Dark Yellow; Glucose Urine UA Negative (Negative); Leukocyte Esterase Urine Trace (Negative); Nitrite Urine Negative (Negative); PH 5.5 (5.0-9.0); Specific Gravity - Urine 1.015 (1.005-1.025); UMIC TRIGGER UA YES; Urine Blood Negative (Negative); Urine Ketones Trace mg/dL (Negative); Urine Protein Negative (Neg-Trace)
[2024-02-16 15:43] LABS: Bacteria Urine None Seen (None Seen); RBC Urine 0-2 /HPF (0-2); Squamous Epithelial Cell Urine 0-2 /HPF (0-2); WBC Urine 0-5 /HPF (0-5)
[2024-02-16 15:49] LABS: Anion Gap 10 (12-20); Blood Urea Nitrogen 23 mg/dL (9-16); Calcium 8.8 mg/dL (8.4-10.2); Carbon Dioxide 31 mmol/L (22-29); Chloride 104 mmol/L (96-108); Estimated Glomerular Filt Rate 35; Glucose Random 111 mg/dL (60-115); Potassium 4.1 mmol/L (3.3-5.1); Sodium 141 mmol/L (135-145)
[2024-02-16 15:54] LABS: Estimated Average Glucose 111 mg/dL; Hemoglobin A1C 73.3893 umol/L; Hemoglobin A1c % 5.5 % (<6.0); Total Hemoglobin (HGBA1C) 1977.5633 umol/L
[2024-02-16 16:09] LABS: Creatinine Urine 141.76 mg/dL; Total Protein Urine Random < 7 mg/dL (<12)
== END 2024-02-16 13:38 | disposition home or self-care (01) ==
LOC: HO.LAB 13:37
PROVIDERS: PCP Internal Medicine; Referring Provider Internal Medicine; Visit Provider Internal Medicine Hypertension Specialist
DX: N18.9 Chronic kidney disease, unspecified (principal); E13.9 Other specified diabetes mellitus without complications; K74.4 Secondary biliary cirrhosis; D50.0 Iron deficiency anemia secondary to blood loss (chronic)
CPT/HCPCS: 36415; 80048; 81001; 82570; 83036; 84156; 99202

== ENCOUNTER 2024-02-16 13:37 | Outpatient (AMB) | payer OTHER, SELFPAY ==
[2024-02-16 13:41] VITALS: BP 108/64; PULSE 82; O2SAT 98; BMI 28.0
--- NOTE | 2024-02-16 13:41 | HO.NEPHOV_ITS ---
Vital Signs 02/16/24 13:41 Height 5 ft 4 in Weight 163 lb BMI 28.0 BP 108/64 Blood Pressure Location Lt brachial Position Sitting Pulse 82 Pulse Source Pulse Oximeter Pulse Oximetry (%) 98 Oxygen Delivery Method Room Air Intake Visit Reasons: INP: RHINA/ Conf Metal Spray Operator Required: No Accompanied by: Self / Same As Patient Allergies ciprofloxacin [Cipro] Allergy (Unknown, Verified 02/16/24 13:43) swelling of the throat , hives nitrofurantoin [From Macrobid] Adverse Reaction (Verified 02/16/24 13:43) Liver cirrhosis decompensation Medication List - Last Reconciled 02/16/24 by Tavo Prajapati MD acyclovir 400 mg PO BEDTIME calcium carbonate-vitamin D3 600 mg-20 mcg (800 unit) (Caltrate with Vitamin D3) 1 tab PO DAILY 90 days carvedilol 6.25 mg PO BID estradiol 0.01%(0.1mg/gram) 1 g vaginal 2XW fluticasone propionate 50 mcg/actuation (Flonase Allergy Relief) 1 spray intranasal DAILY PRN furosemide 40 mg See Protocol PO BID levothyroxine 50 mcg PO DAILY@0600 lorazepam (Ativan) 1 mg PO ONCE PRN methadone 80 mg PO DAILY multivitamin 1 tab PO DAILY omeprazole 20 mg PO BEDTIME ondansetron 4 mg PO Q8H PRN 30 days rifaximin (Xifaxan) 550 mg PO BID spironolactone 100 mg (2 x 50 mg) PO DAILY 90 days terconazole 0.4% 1 appful vaginal BEDTIME 7 days HPI Comments Details: Beata is a pleasant 53-year-old woman with a history of hepatitis-C cirrhosis, portal hypertension, ascites, splenomegaly, 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 She is on high dose of diuretics she has been monitoring her weight at home. Currently she is on spironolactone 50 mg twice a day and furosemide 20 mg twice a day. So far the weight has been stable. She has been referred for further evaluation of CKD. 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 Other Mental health disorder Substance use disorder Social History Household Members: None Housing: Apartment Are you a primary technical healthcare consultant to a significant other at home: No Do you presently have visiting nurse or other home services: No Unable to assess alcohol history related to: Unknown Alcohol intake: never Patient Tobacco Use Status: Never used Tobacco Tobacco use type: Cigarette Cigarettes Per Day: 5 Years Smoked: 17 years old e-Cigarette/Vaping Use: Never Used Use of substances other than those prescribed or required for medical reasons: No Substance Use Type: Heroin Have you been hit, kicked, punched, or otherwise hurt by someone within the past year? If so, by whom?: No Do you feel safe in your current relationship?: No Current Relationship Do you have thoughts of harming others: None Do you have a plan to hurt others: No Plan Do you have the means to hurt others: No Recently lost weight without trying: No service: No Current occupational status: employed Cognitive needs: No Hearing needs: No Vision needs: No Female Reproductive History Menstrual Age of Menarche: 11 Physical Exam Vital Signs: Last Vital Signs Pulse 82 02/16/24 13:41 BP 108/64 02/16/24 13:41 Pulse Ox 98 02/16/24 13:41 Oxygen Delivery Method Room Air 02/16/24 13:41 BMI result Body Mass Index 28.0 Comfortable Neck supple no JVD. Lungs entry equal no rales. Heart S1-S2 heard no gallop or rub. Abdomen soft nontender. Neuro alert awake oriented. No asterixis. Extremities no edema. Results Reviewed Nephrology Results: Hgb 8.5 g/dl (12.0-16.0) L 02/06/24 WBC 4.5 X10*3/uL (4.8-10.8) L 02/06/24 Plt Count 91 X10*3/uL (160-400) L 02/06/24 Sodium 143 mmol/L (135-145) 02/06/24 Potassium 3.7 mmol/L (3.3-5.1) 02/06/24 Chloride 105 mmol/L (96-108) 02/06/24 Carbon Dioxide 32 mmol/L (22-29) H 02/06/24 BUN 15 mg/dL (9-16) 02/06/24 Creatinine 1.37 mg/dL (0.5-1.4) 02/06/24 Calcium 8.2 mg/dL (8.4-10.2) L 02/06/24 Assessment & Plan Assessment & Plan (1) CKD (chronic kidney disease): Code(s): N18.9 - Chronic kidney disease, unspecified Category: Medical (2) Liver cirrhosis: Code(s): K74.60 - Unspecified cirrhosis of liver Category: Medical Qualifiers: Hepatic cirrhosis type: secondary biliary cirrhosis Qualified Code(s): K74.4 - Secondary biliary cirrhosis (3) Iron deficiency anemia: Code(s): D50.9 - Iron deficiency anemia, unspecified Category: Medical Qualifiers: Iron deficiency anemia type: chronic blood loss Qualified Code(s): D50.0 - Iron deficiency anemia secondary to blood loss (chronic) Plan Pleasant middle-aged woman with CKD in a setting of longstanding hepatitis-C and cirrhosis. She has had episodes of acute kidney injury. At present renal function is close to baseline. She has no significant proteinuria. Urine sediments bland without any evidence of RBCs or casts. Recent imaging did not reveal any obstruction both kidneys appeared normal in size and texture. Even though she was history of hepatitis-C based on the bland urine sediments I do not think she has any active glomerular nephritis or interstitial disease at this time. The fluctuation in serum creatinine is primarily hemodynamic due to the use of diuretics. Recommendation at this point would be to keep her on a low-sodium diet. Continue with current dose of diuretics. Monitor weight at home. I have encouraged her to adjust the diuretics based on a daily weight. If she continues to lose more than 2-4 lb we can cut back on Lasix another on the other hand if she gains more than 2-4 lb from her usual dry weight she can increase the Lasix. She should avoid nephrotoxic agents including NSAIDs. She has significant anemia. Recent iron stores were low with a low iron saturation. She should restart oral iron supplementation and if necessary she can also receive intravenous iron like Venofer. Pancytopenia in the setting of cirrhosis. Platelet count has marginally improved. I will be happy to follow her along with the team Orders: Orders Basic Metabolic Panel Today N18.9 - Chronic kidney disease, unspecified UA and rflx microscopic Today N18.9 - Chronic kidney disease, unspecified Total Protein Urine Random Today N18.9 - Chronic kidney disease, unspecified Creatinine Urine Today N18.9 - Chronic kidney disease, unspecified Medications: Changed From furosemide 40 mg See Protocol PO BID To furosemide 20 mg See Protocol PO BID Scribe Plan - Not visible on output: iron diuretics weights transplant Coding Level of Care Code New Pt Level 5 (65514) Diagnoses CKD (chronic kidney disease) N18.9 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
== END 2024-02-16 14:10 | disposition home or self-care (01) ==
PROVIDERS: PCP Internal Medicine; Referring Provider Internal Medicine; Visit Provider Internal Medicine Hypertension Specialist
DX: N18.9 Chronic kidney disease, unspecified (principal); K74.4 Secondary biliary cirrhosis; D50.0 Iron deficiency anemia secondary to blood loss (chronic); Z76.82 Awaiting organ transplant status
CPT/HCPCS: 99205

== ENCOUNTER 2024-03-16 08:52 | Outpatient (REF) | payer OTHER, SELFPAY ==
--- OUTSIDE RECORDS SUMMARY | 2024-03-16 09:09 | XMS_ITS | Clinical Summary ---
Author Organization [facility] Address [address] [place] [address] Care Team Providers Care Pickle Processor Name Role Phone David Ortiz MD Primary Care Provider [phone] Allergies Active Allergy Reactions Criticality Noted Date Comments Ciprofloxacin Anaphylaxis High 07/28/2022 Swelling of the throat Nitrofurantoin Hepatitis/Abnormal L iver Function High 07/28/2022 Medications Medication Sig Dispensed Refills Start Date End Date Status furosemide (LASIX) 40 MG tabletIndications:Acu te respiratory failure with hypoxia (HCC) Take 1 tablet (40 mg total) by mouth daily. 30 tablet 08/01/2022 Active levothyroxine (SYNTHROID, LEVOTHROID) 50 MCG tabletIndications:Acu te respiratory failure with hypoxia (HCC) Take 1 tablet (50 mcg total) by mouth daily on an empty stomach. Do not start before August 02, 2022. 30 tablet 08/02/2022 Active metoPROLOL SUCCINATE (TOPROL-XL) 25 MG 24 hr tabletIndications:Acu te respiratory failure with hypoxia (HCC) Take 1 tablet (25 mg total) by mouth daily. 30 tablet 08/01/2022 Active methadone (DOLOPHINE) 10 mg/5 mL oral solutionIndications:A cute respiratory failure with hypoxia (HCC) Take 37.5 mL (75 mg total) by mouth daily. Do not start before August 02, 2022. Max Daily Amount: 75 mg 0 08/02/2022 Active cefdinir (OMNICEF) 300 MG capsuleIndications:Ac [place] respiratory failure with hypoxia (HCC) Take 1 capsule (300 mg total) by mouth 2 (two) times a day. 20 capsule 08/01/2022 Active hyoscyamine (LEVSIN) 0.125 MG tabletIndications:Acu te respiratory failure with hypoxia (HCC) Take 1 tablet (0.125 mg total) by mouth daily. 7 tablet 08/01/2022 Active Active Problems Problem Noted Date Diagnosed Date Acute respiratory failure with hypoxia 3 Ascites 07/28/2022 Pleural effusion on right 07/28/2022 Family History Medical History Relation Name Comments Hypertension Father Crohn's disease Mother Relation Name Status Comments Father Mother Social History Tobacco Use Types Packs/Day Years Used Date Smoking Tobacco: Every Day Cigarettes Tobacco Cessation:Ready to Q uit: No; Counseling Given: Not Answered Sex and Gender Information Value Date Recorded Sex Assigned at Female 07/30/2022 9:09 AM EDT Gender Identity Not on file Sexual Orientation Not on file Last Filed Vital Signs Vital Sign Reading Time Taken Comments Blood Pressure 123/74 08/01/2022 8:09 AM EDT Pulse 85 08/01/2022 8:09 AM EDT Temperature 37 ??C (98.6 ??F) 08/01/2022 8:09 AM EDT Respiratory Rate 18 08/01/2022 8:09 AM EDT Oxygen Saturation 94% 08/01/2022 8:09 AM EDT Inhaled Oxygen Concentration - - Weight 78.1 kg (172 lb 2.9 oz) 08/01/2022 5:00 A M EDT Height 157.5 cm (5' 2 ) 07/28/2022 10:46 PM EDT Body Mass Index 31.49 07/28/2022 10:46 PM EDT Plan of Treatment Health Maintenance Due Date Last Done Comments Pneumococcal Vaccine: Pediat bentley (0-5 Years) and At-Risk Patients (6 to 49 Years) (1 of 2 - PCV) 1976 HIV Screening 10/03/1983 DTaP/Tdap/Td Vaccines (1 - Tdap) 1989 Hepatitis B Vaccines (1 of 3 - 19+ 3-dose series) 1989 Pneumococcal Vaccines 50+ (1 of 2 - PCV) 1989 Pap Smear (Ages 21-65) 10/03/1991 Mammogram 2010 Colonoscopy 10/03/2015 Zoster (Shingles) Vaccine (1 of 2) 2020 Influenza Vaccine 09/15/2023 COVID-19 Vaccine ( season) 2023 Hemoglobin A1C Discontinued 07/29/2022 Hepatitis C Virus Screening Completed 07/30/2022, 0 07/30/2022 Procedures Procedure Name Priority Date/Time Associated Diagnosis Comments HEPATITIS PANEL, ACUTE Routine 07/30/2022 8:26 PM EDT HEMOGLOBIN A1C WITH ESTIMATED AVERAGE GLUCOSE Routine 07/29/2022 3:44 AM EDT from Last 3 Months or Most Recently Relevant to Health Maintenance Results * (ABNORMAL) Hepatitis Panel, Acute (07/30/2022 8:26 PM EDT) Hepatitis A Antibody IgM Nonreactive Nonreactive S/CO 08/02/2022 11:51 AM EDT [facility] Hepatitis B Core Antibody IgM Nonreactive Nonreactive 08/02/2022 11:51 AM EDT [facility] Hepatitis B Surface Ag Screen Nonreactive Nonreactive 08/02/2022 11:51 AM EDT [facility] Hepatitis C Antibody 10.79(H) 0.00 - 0.79 S/CO ratio 08/02/2022 11:51 AM EDT [facility] Hepatitis C Antibody Interpretation Reactive(A) Nonreactive 08/02/2022 11:51 AM EDT [facility] Hepatitis Interpretation: These results indicate Hepatitis C infection. 08/02/2022 11:51 AM EDT [facility] Blood specimen (specimen) Serum specimen / Unknown 07/30/2022 8:26 PM EDT 07/30/2022 8:34 PM EDT Comment:Serum~Plasma Shanti Matt MD LAB BLOOD [facility]ABL ES [facility] See Below [facility] [address] [place] [address] * (ABNORMAL) Hemoglobin A1c with Estimated Average Glucose (07/29/2022 3:44 AM EDT) Hemoglobin A1C 5.7(H) <5.7 % 07/29/2022 8:47 AM EDT [facility] Comment: A1c% ? Interpretation 5.7 - 6.0 ?Increase risk of diabetes 6.1 - 6.4 ?Higher risk of diabetes > or = 6.5 ?? Consistent with diabetes Diabetes Care, 33(Supp 1):S1-S61, 2010 Estimated Average Glucose 117 mg/dL 07/29/2022 8:47 AM EDT [facility] Blood specimen (specimen) Blood specimen / Unknown 07/29/2022 3:44 AM EDT 07/29/2022 3:49 AM EDT Artis Plata MD LAB BLOOD ORDERABLES [facility] LAB See Below [facility] [address] [place] [address] from Last 3 Months or Most Recently Relevant to Health Maintenance Advance Directives * Full Code (Latest Code Status on File) Date Activated Date Inactivated Comments 07/28/2022 10:27 PM Care Teams Pickle Processor Relationship Specialty Start Date End Date David Ortiz MD [address] [facility] [place] [id number] PCP - General Internal Medicine 07/29/22
--- OUTSIDE RECORDS SUMMARY | 2024-03-16 09:09 | XMS_ITS | Clinical Summary ---
Author Organization [facility] Facility Address [address] [facility] [address] [place] [id number] Care Team Providers Care Real Estate Transaction Coordinator Name Role Phone David Ortiz MD Primary Care Provider [phone] Encounters Date Type Department Care Team Description 01/05/2024 Telephone [facility] [address] [place] [address] Racquel Gamboa from Last 3 Months Social History Tobacco Use Types Packs/Day Years Used Date Smoking Tobacco: Never Assessed Comments Unknown Sex and Gender Information Value Date Recorded Sex Assigned at Not on file Legal Sex Female 10:04 AM EDT Gender Identity Not on file Sexual Orientation Not on file Plan of Treatment Health Maintenance Due Date Last Done Comments Breast Cancer Screening 1970 Hepatitis B Vaccine (1 of 3 - 19+ 3-dose series) 1989 Colorectal Cancer Screening: Annual FOBT 10/03/2019 Colorectal Cancer Screening: Colonoscopy 10/03/2019 Colorectal Cancer Screening: Sigmoidoscopy 10/03/2019 Influenza Vaccine (#1) 2023 Pneumococcal Vaccine: Pediat rics (0 to 5 Years) and At-Risk Patients (6 to 64 Years) Aged Out No longer eligible b ased on patient's age to complete this topic Insurance [employer] ONE CARE DUAL SNP ([id number]) [place]BERT[place] GUERRA [id number] Care Teams Real Estate Transaction Coordinator Relationship Specialty Start Date End Date David Ortiz MD [address] [place] [id number] PCP - General Internal Medicine 12/12/23
--- OUTSIDE RECORDS SUMMARY | 2024-03-16 09:09 | XMS_ITS ---
Author Name [facility] Organization Unknown History of Medication Use Medication Directions Dispensed Refills Start Date End Date Stat cefdinir (OMNICEF) 300 MG capsule Take 1 capsule (300 mg total) by mouth 2 (two) times a day. 08/01/2022 active Problems Problem Status Onset Date Problem Type Date of Resoluti on Source Ascites active 2022-07-28 ProblemAct [facility] Pleural effusion on right active 2022-07-28 ProblemAct [facility] Acute respiratory failure with hypoxia active 2022-07-28 ProblemAct HHCCT
[2024-03-16 10:17] LABS: Hematocrit 27.7 % (37.0-47.0); Hemoglobin 8.6 g/dl (12.0-16.0); Mean Corpuscular Hemoglobin 28.1 pg (27.0-33.0); Mean Corpuscular Volume 90.5 fL (80.0-98.0); Red Blood Count 3.06 X10*6/uL (4.20-5.50); Red Cell Distribution Width 17.6 % (11.0-16.0); White Blood Count 2.7 X10*3/uL (4.8-10.8)
[2024-03-16 10:27] LABS: INTERNATIONAL NORM RATIO 2.3 (0.9-1.1); Prothrombin Time 27.4 SEC (10.9-12.4)
[2024-03-16 10:52] LABS: Alanine Aminotransferase < 6 U/L (0-31); Albumin Level 2.8 g/dL (3.5-5.0); Alkaline Phosphatase 115 U/L (39-117); Anion Gap 11 (12-20); Aspartate Amino Transferase 27 U/L (5-31); Blood Urea Nitrogen 11 mg/dL (9-16); Calcium 8.6 mg/dL (8.4-10.2); Carbon Dioxide 30 mmol/L (22-29); Chloride 104 mmol/L (96-108); Estimated Glomerular Filt Rate 48; Glucose Random 151 mg/dL (60-115); Potassium 3.9 mmol/L (3.3-5.1); Sodium 141 mmol/L (135-145); Total Protein 6.2 g/dL (6.5-8.0)
[2024-03-16 10:56] LABS: Anion Gap 11 (12-20); Blood Urea Nitrogen 12 mg/dL (9-16); Calcium 8.8 mg/dL (8.4-10.2); Carbon Dioxide 30 mmol/L (22-29); Chloride 105 mmol/L (96-108); Estimated Glomerular Filt Rate 47; Glucose Random 147 mg/dL (60-115); Potassium 3.9 mmol/L (3.3-5.1); Sodium 142 mmol/L (135-145)
[2024-03-16 10:57] LABS: Platelet Count 58 X10*3/uL (160-400)
[2024-03-16 10:58] LABS: Mean Platelet Volume 11.2 fL (9.4-12.3)
[2024-03-16 11:07] LABS: Ferritin 21 ng/mL (10-250)
[2024-03-19 13:13] LABS: Alpha Fetoprotein 1.4 ng/mL
== END 2024-03-16 08:53 | disposition home or self-care (01) ==
LOC: HO.LAB 08:52
PROVIDERS: Internal Medicine; Visit Provider Internal Medicine
DX: B19.20 Unspecified viral hepatitis C without hepatic coma (principal); K74.69 Other cirrhosis of liver; N17.9 Acute kidney failure, unspecified; D50.0 Iron deficiency anemia secondary to blood loss (chronic)
CPT/HCPCS: 36415; 80048; 80053; 82105; 82728; 85027; 85610

== ENCOUNTER → 2024-03-19 09:25 | Outpatient (BNVA) | payer OTHER, SELFPAY | PROVIDERS: PCP Internal Medicine; Visit Provider Internal Medicine | DX: K74.60 Unspecified cirrhosis of liver (principal); K72.90 Hepatic failure, unspecified without coma; K76.6 Portal hypertension; R18.8 Other ascites; D61.818 Other pancytopenia; N17.9 Acute kidney failure, unspecified; E16.2 Hypoglycemia, unspecified; D50.0 Iron deficiency anemia secondary to blood loss (chronic); K50.10 Crohn's disease of large intestine without complications; Z86.19 Personal history of other infectious and parasitic diseases | CPT/HCPCS: 99212 ==

== ENCOUNTER 2024-04-11 09:15 | Outpatient (RCR) | payer OTHER, SELFPAY ==
[2024-03-30 09:59] VITALS: BP 116/67; PULSE 78; RESP 16; TEMP 37.3; O2SAT 99
[2024-03-30] MEDS: Iron Sucrose Complex 200 MG/10 ML VIAL IVPUSH (10:17)
[2024-03-30] MEDS: Heparin Sodium,Porcine Flush 50 UNITS, 0.9 % Sodium Chloride Flush 5 ML IVFLUSH (10:23)
[2024-04-11 09:40] VITALS: BP 129/74; PULSE 79; RESP 16; TEMP 37.4; O2SAT 96
[2024-04-11] MEDS: Iron Sucrose Complex 200 MG/10 ML VIAL IVPUSH (09:55)
== END 2024-04-11 10:20 | disposition home or self-care (01) ==
LOC: HO.INF 09:15
PROVIDERS: Visit Provider Internal Medicine
DX: D64.9 Anemia, unspecified (principal)
CPT/HCPCS: 96374; J1642; J1756

== ENCOUNTER 2024-05-03 12:59 | Outpatient (REF) | payer OTHER, SELFPAY ==
--- NOTE | ~2024-05-03 | CT_ITS ---
CLINICAL HISTORY: hepatobiliary cancer surveillance CT abdomen and pelvis with contrast Comparison: CT/SR - CT ABDOMEN PELVIS WO IV CON - 12/02/23 10:39 EDT Additional prior studies not provided for comparison. Findings: Mild fibrotic/atelectatic and bronchiectatic changes in the lung bases without acute consolidation or pleural effusion. Upper normal heart size. No pericardial effusion. Similar cirrhotic liver morphology without focal abnormality. Similar splenomegaly at 19 cm in length. Mild volume ascites decreased from prior. Similar abdominal varices. Similar mesenteric edema. Slightly decompressed gallbladder without opaque stones. Layering of sludge or dense bile as on prior. No biliary dilatation. Similarly mildly atrophic pancreas without focal abnormality or duct dilatation. Stable punctate nonobstructing lower pole stones both kidneys. No obstructing stones or hydronephrosis. Normal renal contour. No adrenal nodules. Similar nonspecific circumferential wall thickening of the distal esophagus. Stomach decompressed. No bowel obstruction. Diverticulosis without features of diverticulitis. No abnormal appendix. Urinary bladder mostly decompressed. Pelvic viscera intact. Mild volume ascites low pelvis. Similar generalized anasarca of the body wall with abdominal wall varices. Previous right ventral herniorrhaphy with mesh. Fat containing periumbilical hernia similar to prior. Normal caliber abdominal aorta. Minimal plaque. No stenosis or dissection. No pathologic abdominal or pelvic adenopathy. New mild inferior endplate compression fracture T10. Stable mild superior endplate fracture T11. Partially imaged T9 fracture, as on prior. IMPRESSION: Cirrhotic liver with features of portal hypertension as on prior. No focal abnormality evident. Mild volume ascites decreased from prior. New mild inferior endplate compression fracture T10. Multiple additional findings similar to prior. This document has been electronically signed by: Shady Edmonds MD on 05/05/2024 07:54:45
--- OUTSIDE RECORDS SUMMARY | 2024-05-03 15:24 | XMS_ITS | Clinical Summary ---
Author Organization [facility] Address [address] [place] [address] Care Team Providers Care Record Filing Clerk Name Role Phone David Ortiz MD Primary Care Provider [phone] Allergies Active Allergy Reactions Criticality Noted Date [...] 08/02/2022 Active cefdinir (OMNICEF) 300 MG capsuleIndications:Ac [place] respiratory failure with hypoxia (HCC) Take 1 [...] Nonreactive Nonreactive S/CO 08/02/2022 11:51 AM EDT [facility] Hepatitis B Core Antibody IgM Nonreactive Nonreactive 08/02/2022 11:51 AM EDT [facility] Hepatitis B Surface Ag Screen Nonreactive Nonreactive 08/02/2022 11:51 AM EDT [facility] Hepatitis C Antibody 10.79(H) 0.00 - 0.79 S/CO ratio 08/02/2022 11:51 AM EDT [facility] Hepatitis C Antibody Interpretation Reactive(A) Nonreactive 08/02/2022 11:51 AM EDT [facility] Hepatitis Interpretation: These results indicate Hepatitis C infection. 08/02/2022 11:51 AM EDT [facility] Blood specimen (specimen) Serum specimen / Unknown 07/30/2022 8:26 PM EDT 07/30/2022 8:34 PM EDT Comment:Serum~Plasma Shanti Matt MD LAB BLOOD ORDERABL ES HOSPITAL LAB See Below [facility] [address] [place] [address] * (ABNORMAL) Hemoglobin A1c with Estimated Average Glucose (07/29/2022 3:44 AM EDT) Hemoglobin A1C 5.7(H) <5.7 % 07/29/2022 8:47 AM EDT [facility] Comment: A1c% ? Interpretation 5.7 - 6.0 ?Increase risk of diabetes 6.1 - 6.4 ?Higher risk of diabetes > or = 6.5 ?? Consistent with diabetes Diabetes Care, 33(Supp 1):S1-S61, 2010 Estimated Average Glucose 117 mg/dL 07/29/2022 8:47 AM EDT [facility] Blood specimen (specimen) Blood specimen / Unknown 07/29/2022 3:44 AM EDT 07/29/2022 3:49 AM EDT Artis Plata MD LAB BLOOD ORDERABLES [facility]OSPITAL LAB See Below [facility] [address] [place] [address] from Last 3 Months or Most Recently Relevant to Health Maintenance Advance Directives * Full Code (Latest Code Status on File) Date Activated Date Inactivated Comments 07/28/2022 10:27 PM Care Teams Record Filing Clerk Relationship Specialty Start Date End Date David Ortiz MD [address] [place] [place] [id number] PCP - General Internal Medicine 07/29/22
--- OUTSIDE RECORDS SUMMARY | 2024-05-03 15:24 | XMS_ITS | Clinical Summary ---
Author Organization [facility] Facility Address [address] [place] [address] Care Team Providers Care Mystery Shopper Name Role Phone David Ortiz MD Primary Care Provider [phone] Social History Tobacco Use Types Packs/Day Years [...] patient's age to complete this topic Insurance [facility] ONE CARE DUAL SNP ([id number]) Care Teams Mystery Shopper Relationship Specialty Start Date End Date David Ortiz MD [address] [place] [id number] PCP - General Internal Medicine 12/12/23
[2024-05-03] MEDS: iohexoL 350 MG/ML 75 ML INFUS..BTL 85 ML IV (15:37)
[2024-05-04 10:08] LABS: Creatinine POC 1.6 mg/dL (0.5-1.4); GFR POC 37
== END 2024-05-03 13:00 | disposition home or self-care (01) ==
LOC: HO.CT 12:59
PROVIDERS: PCP Internal Medicine; Visit Provider Internal Medicine
DX: S22.050D Wedge compression fracture of T5-T6 vertebra, subsequent encounter for fracture with routine healing (principal)
CPT/HCPCS: 74177; 82565; Q9967

== ENCOUNTER → 2024-05-03 13:23 | Outpatient (BNV) | payer OTHER, SELFPAY | PROVIDERS: PCP Internal Medicine; Visit Provider Radiology Diagnostic Radiology | DX: K74.60 Unspecified cirrhosis of liver (principal) | CPT/HCPCS: 74177 ==

== ENCOUNTER 2024-05-14 14:07 | Outpatient (REF) | payer OTHER, SELFPAY ==
--- OUTSIDE RECORDS SUMMARY | 2024-05-14 15:58 | XMS_ITS | Clinical Summary ---
Author Organization [facility] Facility Address [address] [place] [address] Care Team Providers Care Covering And Lining Supervisor Name Role Phone David Ortiz MD Primary Care Provider [phone] Social History Tobacco Use Types Packs/Day Years [...] patient's age to complete this topic Insurance [facility] ONE CARE DUAL SNP ([id number]) Care Teams Covering And Lining Supervisor Relationship Specialty Start Date End Date David Ortiz MD [address] [place] [id number] PCP - General Internal Medicine 12/12/23
--- OUTSIDE RECORDS SUMMARY | 2024-05-14 15:58 | XMS_ITS | Clinical Summary ---
Author Organization [facility] Address [address] [place] [address] Care Team Providers Care Can Feeder Name Role Phone David Ortiz MD Primary Care Provider [phone] Allergies Active Allergy Reactions Criticality Noted Date [...] 08/02/2022 Active cefdinir (OMNICEF) 300 MG capsuleIndications:Ac [place] respiratory failure with hypoxia (HCC) Take 1 [...] Nonreactive Nonreactive S/CO 08/02/2022 11:51 AM EDT [facility] Hepatitis B Core Antibody IgM Nonreactive Nonreactive 08/02/2022 11:51 AM EDT [facility] Hepatitis B Surface Ag Screen Nonreactive Nonreactive 08/02/2022 11:51 AM EDT [facility] Hepatitis C Antibody 10.79(H) 0.00 - 0.79 S/CO ratio 08/02/2022 11:51 AM EDT [facility] Hepatitis C Antibody Interpretation Reactive(A) Nonreactive 08/02/2022 11:51 AM EDT [facility] Hepatitis Interpretation: These results indicate Hepatitis C infection. 08/02/2022 11:51 AM EDT [facility] Blood specimen (specimen) Serum specimen / Unknown 07/30/2022 8:26 PM EDT 07/30/2022 8:34 PM EDT Comment:Serum~Plasma Shanti Matt MD LAB BLOOD ORDERABL ES [facility] LAB See Below [facility] [address] [place] [address] * (ABNORMAL) Hemoglobin A1c with Estimated Average Glucose (07/29/2022 3:44 AM EDT) Hemoglobin A1C 5.7(H) <5.7 % 07/29/2022 8:47 AM EDT [facility] Comment: A1c% ? Interpretation 5.7 - 6.0 ?Increase risk of diabetes 6.1 - 6.4 ?Higher risk of diabetes > or = 6.5 ?? Consistent with diabetes Diabetes Care, 33(Supp 1):S1-S61, 2010 Estimated Average Glucose 117 mg/dL 07/29/2022 8:47 AM EDT [facility] Blood specimen (specimen) Blood specimen / Unknown 07/29/2022 3:44 AM EDT 07/29/2022 3:49 AM EDT Artis Plata MD [facility] LAB See Below [facility] [address] [place] [address] from Last 3 Months or Most Recently Relevant to Health Maintenance Advance Directives * Full Code (Latest Code Status on File) Date Activated Date Inactivated Comments 07/28/2022 10:27 PM Care Teams Can Feeder Relationship Specialty Start Date End Date David Ortiz MD [address] [facility] [place] [id number] PCP - General Internal Medicine 07/29/22
== END 2024-05-14 14:08 | disposition home or self-care (01) ==
LOC: HO.LAB 14:07
PROVIDERS: PCP Internal Medicine; Visit Provider Internal Medicine
DX: Z13.89 Encounter for screening for other disorder (principal)

== ENCOUNTER 2024-05-17 | Outpatient (REF) | payer OTHER, SELFPAY ==
[2024-03-16 09:55] VITALS: BMI 27.5
--- NOTE | 2024-03-19 09:15 | HO.ANESPROP2 ---
HPI - Anesthesia Eval Consult details Narrative: Resched to 05/17/24 53yo F for Upper Endoscopy s/p same with TIVA Methadone daily Cirrhosis with pancytopenia (hx IVDA, Hep C treated but progressed). Follows with [facility] liver transplant team. [place] [facility] [place] for CKD with a creatinine between 1.5 and 2 mg/dL. PMFSH Active Problems Active Problems: All Active Problems CKD (chronic kidney disease) (Acute) Thoracic spine fracture (Acute) Postmenopausal atrophic vaginitis (Acute) Vaginal itching (Acute) Encounter for gynecological examination with Papanicolaou smear of cervix (Acute) Compression fracture of T6 vertebra (Acute) Decompensated hepatic cirrhosis (Acute) Pancytopenia (Acute) Mid back pain (Acute) Flank pain (Acute) Shoulder blade pain (Acute) RHINA (acute kidney injury) (Acute) Breast cancer screening by mammogram (Acute) Cervical cancer screening (Acute) Hypoglycemia (Acute) Sarcopenia (Acute) Nephropathy (Acute) Elevated BUN (Acute) Heme positive stool (Acute) Coagulopathy (Acute) Restlessness and agitation (Acute) Pleural effusion (Acute) Breast lump on left side at 11 o'clock position (Acute) Open wound of left breast (Acute) Left breast abscess (Acute) Encounter for routine gynecological examination (Acute) Edema of both ankles (Acute) Cellulitis (Acute) Diabetic ulcer of left foot (Acute) Obesity due to excess calories (Acute) Anemia (Acute) Hospital discharge follow-up (Acute) E. coli sepsis (Acute) Pressure ulcer of foot, stage 1 (Acute) Acute anemia (Acute) Bacteremia, escherichia coli (Acute) Hepatitis (Acute) Water retention (Acute) Cystitis (Acute) Dysuria (Acute) Encounter for general adult medical examination with abnormal findings (Acute) History of hepatitis C (Acute) COPD (chronic obstructive pulmonary disease) (Acute) Liver cirrhosis (Acute) Ascites of liver (Acute) Hypertension, essential (Acute) Hypothyroidism (Acute) Iron deficiency anemia (Acute) Pleural effusion, right (Acute) Allergic rhinitis (Acute) Lipid disorder (Acute) Rosacea (Acute) Rheumatoid arthritis (Acute) Herpes simplex antibody positive (Acute) Diabetes 1.5, managed as type 2 (Acute) Crohn's disease (Acute) Past Medical History Medical History History of central line-associated bloodstream infection (CLABSI) History of hepatitis C Acute on chronic anemia COPD (chronic obstructive pulmonary disease) Hydrothorax Ascites Pleural effusion, right Iron deficiency anemia Pancytopenia Ascites of liver Liver cirrhosis Hypertension, essential Allergic rhinitis Lipid disorder Rosacea Rheumatoid arthritis 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 Other Mental health disorder Substance use disorder Family history of problems with anesthesia: No Surgical History Surgical History History of abdominal paracentesis History of esophagogastroduodenoscopy (EGD) Hx of colonoscopy History of hernia repair History of bowel resection History of appendectomy History of Problems with Anesthesia: No Social History Social History Household Members: None Housing: Apartment Are you a primary care management associate to a significant other at home: No Do you presently have visiting nurse or other home services: No Unable to assess alcohol history related to: Unknown Alcohol intake: never Patient Tobacco Use Status: Never used Tobacco Tobacco use type: Cigarette Cigarettes Per Day: 5 Years Smoked: 17 years old e-Cigarette/Vaping Use: Never Used Substance Use Type: Heroin service: No Current occupational status: employed Cognitive needs: No Hearing needs: No Vision needs: No Meds Allergies Allergy/AdvReac Type Severity Reaction Status Date / Time ciprofloxacin [Cipro] Allergy Unknown swelling Verified 03/19/24 09:30 of the throat , hives nitrofurantoin AdvReac Liver Verified 03/19/24 09:30 [From Macrobid] cirrhosis decompensation Home Medications ?Medication ?Instructions ?Recorded ?Confirmed ?Last Taken ?Type methadone 10 mg/mL oral concentrate 80 mg PO DAILY 05/04/21 03/16/24 11/21/23 History multivitamin 1 tab PO DAILY 07/28/22 03/16/24 11/21/23 History fluticasone propionate 50 1 spray intranasal DAILY PRN 10/26/22 03/16/24 Unknown History mcg/actuation nasal Allergy Symptoms spray,suspension (Flonase Allergy Relief) rifaximin 550 mg tablet (Xifaxan) 550 mg PO BID 02/06/24 03/16/24 Unknown History furosemide 20 mg tablet 20 mg PO BID 02/16/24 03/16/24 Unknown History Exam Height,Weight and Vital Signs: Height 5 ft 4 in Weight 72.575 kg Pertinent Lab Results Pertinent Lab Results: Laboratory Tests 03/16/24 09:45 WBC 2.7 L Hgb 8.6 L Hct 27.7 L Plt Count 58 L D Sodium 142 Potassium 3.9 Chloride 105 Carbon Dioxide 30 H BUN 12 Creatinine 1.20 Narrative Narrative: EKG 09/2023 Vent. Rate : 083 BPM Atrial Rate : 083 BPM P-R Int : 154 ms QRS Dur : 062 ms QT Int : 296 ms P-R-T Axes : 038 002 025 degrees QTc Int : 347 ms Normal sinus rhythm Low voltage QRS Cannot rule out Anterior infarct , age undetermined Abnormal ECG When compared with ECG of 02-JUN-2023 18:07, QRS duration has decreased ST now depressed in Anterior leads Nonspecific T wave abnormality, worse in Lateral leads QT has shortened Assessment and Plan Assessment Anesthesia Assessment: Chart Reviewed Final Anesthetic Review Family History of Problems with Anesthesia: No History of Problems with Anesthesia: No
--- NOTE | 2024-05-16 08:18 | HO.ANESPROP2 ---
HPI - Anesthesia Eval Consult details Narrative: 53yo F for Colonoscopy s/p EGD/[place] 04/2023 with TIVA Methadone daily Cirrhosis with pancytopenia (hx IVDA, Hep C treated but progressed). Follows with [facility] liver transplant team. Labs 05/14/24 with T&S. Follows [facility] for CKD with a creatinine between 1.5 and 2 mg/dL. PMFSH Active Problems Active Problems: All Active Problems CKD (chronic kidney disease) (Acute) Thoracic spine fracture (Acute) Postmenopausal atrophic vaginitis (Acute) Vaginal itching (Acute) Encounter for gynecological examination with Papanicolaou smear of cervix (Acute) Compression fracture of T6 vertebra (Acute) Decompensated hepatic cirrhosis (Acute) Pancytopenia (Acute) Mid back pain (Acute) Flank pain (Acute) Shoulder blade pain (Acute) RHINA (acute kidney injury) (Acute) Breast cancer screening by mammogram (Acute) Cervical cancer screening (Acute) Hypoglycemia (Acute) Sarcopenia (Acute) Nephropathy (Acute) Elevated BUN (Acute) Heme positive stool (Acute) Coagulopathy (Acute) Restlessness and agitation (Acute) Pleural effusion (Acute) Breast lump on left side at 11 o'clock position (Acute) Open wound of left breast (Acute) Left breast abscess (Acute) Encounter for routine gynecological examination (Acute) Edema of both ankles (Acute) Cellulitis (Acute) Diabetic ulcer of left foot (Acute) Obesity due to excess calories (Acute) Anemia (Acute) Hospital discharge follow-up (Acute) E. coli sepsis (Acute) Pressure ulcer of foot, stage 1 (Acute) Acute anemia (Acute) Bacteremia, escherichia coli (Acute) Hepatitis (Acute) Water retention (Acute) Cystitis (Acute) Dysuria (Acute) Encounter for general adult medical examination with abnormal findings (Acute) History of hepatitis C (Acute) COPD (chronic obstructive pulmonary disease) (Acute) Liver cirrhosis (Acute) Ascites of liver (Acute) Hypertension, essential (Acute) Hypothyroidism (Acute) Iron deficiency anemia (Acute) Pleural effusion, right (Acute) Allergic rhinitis (Acute) Lipid disorder (Acute) Rosacea (Acute) Rheumatoid arthritis (Acute) Herpes simplex antibody positive (Acute) Diabetes 1.5, managed as type 2 (Acute) Crohn's disease (Acute) Past Medical History Medical History History of central line-associated bloodstream infection (CLABSI) History of hepatitis C Acute on chronic anemia COPD (chronic obstructive pulmonary disease) Hydrothorax Ascites Pleural effusion, right Iron deficiency anemia Pancytopenia Ascites of liver Liver cirrhosis Hypertension, essential Allergic rhinitis Lipid disorder Rosacea Rheumatoid arthritis 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 Other Mental health disorder Substance use disorder Family history of problems with anesthesia: No Surgical History Surgical History History of abdominal paracentesis History of esophagogastroduodenoscopy (EGD) Hx of colonoscopy History of hernia repair History of bowel resection History of appendectomy History of Problems with Anesthesia: No Social History Social History Household Members: None Housing: Apartment Are you a primary care team coordinator scheduler to a significant other at home: No Do you presently have visiting nurse or other home services: No Unable to assess alcohol history related to: Unknown Alcohol intake: never Patient Tobacco Use Status: Never used Tobacco Tobacco use type: Cigarette Years Smoked: 17 years old e-Cigarette/Vaping Use: Never Used Use of substances other than those prescribed or required for medical reasons: No Substance Use Type: Heroin Have you been hit, kicked, punched, or otherwise hurt by someone within the past year? If so, by whom?: No Do you feel safe in your current relationship?: No Current Relationship Do you have thoughts of harming others: None Do you have a plan to hurt others: No Plan Do you have the means to hurt others: No Recently lost weight without trying: No service: No Current occupational status: employed Cognitive needs: No Hearing needs: No Vision needs: No Meds Allergies Allergy/AdvReac Type Severity Reaction Status Date / Time ciprofloxacin [Cipro] Allergy Intermediate swelling Verified 05/03/24 15:38 of the throat , hives iohexol [From Omnipaque] Allergy Itching Verified 05/03/24 15:39 nitrofurantoin AdvReac Liver Verified 03/19/24 09:30 [From Macrobid] cirrhosis decompensation Home Medications ?Medication ?Instructions ?Recorded ?Confirmed ?Last Taken ?Type methadone 10 mg/mL oral concentrate 80 mg PO DAILY 05/04/21 05/14/24 11/21/23 History multivitamin 1 tab PO DAILY 07/28/22 05/14/24 11/21/23 History fluticasone propionate 50 1 spray intranasal DAILY PRN 10/26/22 05/14/24 Unknown History mcg/actuation nasal Allergy Symptoms spray,suspension (Flonase Allergy Relief) rifaximin 550 mg tablet (Xifaxan) 550 mg PO BID 02/06/24 05/14/24 Unknown History furosemide 20 mg tablet 20 mg PO BID 02/16/24 05/14/24 Unknown History Exam Height,Weight and Vital Signs: Height 5 ft 4 in Weight 72.575 kg Pertinent Lab Results Pertinent Lab Results: Laboratory Tests 05/14/24 15:05 Blood Type A Positive Antibody Screen POSITIVE Antibody Identification Anti-K Crossmatch (AHG) See Detail Laboratory Tests 05/14/24 15:05 WBC 2.1 L Hgb 8.5 L Hct 26.1 L Plt Count 54 L Sodium 137 Potassium 4.3 Chloride 105 Carbon Dioxide 25 BUN 25 H Creatinine 1.90 H Narrative Narrative: EKG 09/2023 Vent. Rate : 083 BPM Atrial Rate : 083 BPM P-R Int : 154 ms QRS Dur : 062 ms QT Int : 296 ms P-R-T Axes : 038 002 025 degrees QTc Int : 347 ms Normal sinus rhythm Low voltage QRS Cannot rule out Anterior infarct , age undetermined Abnormal ECG When compared with ECG of 02-JUN-2023 18:07, QRS duration has decreased ST now depressed in Anterior leads Nonspecific T wave abnormality, worse in Lateral leads QT has shortened Assessment and Plan Assessment Anesthesia Assessment: Chart Reviewed Final Anesthetic Review Family History of Problems with Anesthesia: No History of Problems with Anesthesia: No
== END 2024-05-17 00:01 | disposition home or self-care (01) ==
LOC: HO.PAT
PROVIDERS: PCP Internal Medicine; Visit Provider Internal Medicine
DX: R18.8 Other ascites (principal)
CPT/HCPCS: 86850; 86870; 86900; 86901; 86902; 86920; 86922

== ENCOUNTER 2024-05-24 12:50 | Outpatient (REF) | payer OTHER, SELFPAY ==
[2024-05-24 14:05] LABS: Appearance Urine Clear; Color Urine Yellow; Glucose Urine UA Negative (Negative); Leukocyte Esterase Urine Small (1+) (Negative); Nitrite Urine Negative (Negative); UMIC TRIGGER UA YES; Urine Blood Negative (Negative); Urine Ketones Negative (Negative); Urine Protein Negative (Neg-Trace)
[2024-05-24 14:12] LABS: Bacteria Urine 1+ (None Seen); Hyaline Casts Urine 0-2 /LPF (0-2); RBC Urine 0-2 /HPF (0-2); WBC Urine 0-5 /HPF (0-5)
[2024-05-24 14:14] LABS: Calcium 8.2 mg/dL (8.4-10.2)
--- OUTSIDE RECORDS SUMMARY | 2024-05-24 15:27 | XMS_ITS | Clinical Summary ---
Author Organization [facility] Facility Address [address] [place] [id number] Care Team Providers Care Digitizer Name Role Phone David Ortiz MD Primary Care Provider [phone] Social History Tobacco Use Types Packs/Day Years [...] Colorectal Cancer Screening: Sigmoidoscopy 10/03/2019 Influenza Vaccine (Season Ended) 2024 Pneumococcal Vaccine: Peds ( 0 to 5 Years) and At-Risk Patients (6 to 49 Years) Aged Out No longer eligible b ased on patient's age to complete this topic Insurance [facility] One Care Dual SNP ([id number]) Care Teams Digitizer Relationship Specialty Start Date End Date David Ortiz MD [address] [place] [id number] PCP - General Internal Medicine 12/12/23
--- OUTSIDE RECORDS SUMMARY | 2024-05-24 15:27 | XMS_ITS | Clinical Summary ---
Author Organization [facility] Address [address] [place] [address] Care Team Providers Care Training Designer Name Role Phone David Ortiz MD Primary Care Provider [phone] Allergies Active Allergy Reactions Criticality Noted Date [...] 08/02/2022 Active cefdinir (OMNICEF) 300 MG capsuleIndications:Ac [place] respiratory failure with hypoxia (HCC) Take 1 [...] Nonreactive Nonreactive S/CO 08/02/2022 11:51 AM EDT [facility] Hepatitis B Core Antibody IgM Nonreactive Nonreactive 08/02/2022 11:51 AM EDT [facility] Hepatitis B Surface Ag Screen Nonreactive Nonreactive 08/02/2022 11:51 AM EDT [facility] Hepatitis C Antibody 10.79(H) 0.00 - 0.79 S/CO ratio 08/02/2022 11:51 AM EDT [facility] Hepatitis C Antibody Interpretation Reactive(A) Nonreactive 08/02/2022 11:51 AM EDT [facility] Hepatitis Interpretation: These results indicate Hepatitis C infection. 08/02/2022 11:51 AM EDT [facility] Blood specimen (specimen) Serum specimen / Unknown 07/30/2022 8:26 PM EDT 07/30/2022 8:34 PM EDT Comment:Serum~Plasma Shanti Matt MD LAB BLOOD ORDERABL ES HOSPITAL LAB See Below [facility] [address] [place] [address] * (ABNORMAL) Hemoglobin A1c with Estimated Average Glucose (07/29/2022 3:44 AM EDT) Hemoglobin A1C 5.7(H) <5.7 % 07/29/2022 8:47 AM EDT [facility] Comment: A1c% ? Interpretation 5.7 - 6.0 ?Increase risk of diabetes 6.1 - 6.4 ?Higher risk of diabetes > or = 6.5 ?? Consistent with diabetes Diabetes Care, 33(Supp 1):S1-S61, 2010 Estimated Average Glucose 117 mg/dL 07/29/2022 8:47 AM EDT [facility] Blood specimen (specimen) Blood specimen / Unknown 07/29/2022 3:44 AM EDT 07/29/2022 3:49 AM EDT Artis Plata MD LAB BLOOD ORDERABLES HOSPITAL LAB See Below [facility] [address] [place] [address] from Last 3 Months or Most Recently Relevant to Health Maintenance Advance Directives * Full Code (Latest Code Status on File) Date Activated Date Inactivated Comments 07/28/2022 10:27 PM Care Teams Training Designer Relationship Specialty Start Date End Date David Ortiz MD 1961 [facility] [place] [id number] PCP - General Internal Medicine 07/29/22
== END 2024-05-24 12:51 | disposition home or self-care (01) ==
LOC: HO.LAB 12:50
PROVIDERS: Absent Provider Internal Medicine; PCP Internal Medicine; Visit Provider Internal Medicine Hypertension Specialist
DX: K74.4 Secondary biliary cirrhosis (principal)
CPT/HCPCS: 36415; 81001; 81003; 82310

== ENCOUNTER 2024-05-29 13:31 | Outpatient (AMB) | payer OTHER, SELFPAY ==
[2024-05-29 13:33] VITALS: BP 122/68; PULSE 87; O2SAT 99; BMI 28.7
--- NOTE | 2024-05-29 13:33 | HO.NEPHOV ---
Vital Signs 05/29/24 13:33 Height 5 ft 4 in Weight 167 lb 8 oz BMI 28.7 BP 122/68 Blood Pressure Location Rt brachial Position Sitting Pulse 87 Pulse Source Pulse Oximeter Pulse Oximetry (%) 99 Oxygen Delivery Method Room Air Intake Visit Reasons: RHINA/ LVM Allergies ciprofloxacin [Cipro] Allergy (Intermediate, Verified 05/29/24 13:34) swelling of the throat , hives iohexol [From Omnipaque] Allergy (Verified 05/29/24 13:34) Itching nitrofurantoin [From Macrobid] Adverse Reaction (Verified 05/29/24 13:34) Liver cirrhosis decompensation Medication List - Last Reconciled 05/29/24 by Tavo Prajapati MD acyclovir 400 mg PO BEDTIME calcium carbonate-vitamin D3 600 mg-20 mcg (800 unit) (Caltrate with Vitamin D3) 1 tab PO DAILY 90 days carvedilol 6.25 mg PO BID estradiol 0.01%(0.1mg/gram) 1 g vaginal 2XW fluticasone propionate 50 mcg/actuation (Flonase Allergy Relief) 1 spray intranasal DAILY PRN furosemide 20 mg See Protocol PO BID glucagon 3 mg/actuation 3 mg intranasal ONCE levothyroxine 50 mcg PO DAILY@0600 methadone 80 mg PO DAILY multivitamin 1 tab PO DAILY omeprazole 20 mg PO BEDTIME ondansetron 4 mg PO Q8H PRN 30 days peg 3350-electrolytes 236-22.74-6.74 -5.86 gram (Golytely) 240 mL PO Q10M rifaximin (Xifaxan) 550 mg PO BID spironolactone 100 mg (2 x 50 mg) PO DAILY 90 days terconazole 0.4% 1 appful vaginal BEDTIME 7 days HPI Comments Details: Beata is a pleasant 53-year-old woman with a history of hepatitis-C cirrhosis, portal hypertension, ascites, splenomegaly, 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 Currently she is on spironolactone 50 mg ONCE a day and furosemide 20 mg twice a day. So far the weight has been stable. She is currently on the active transplant list at [facility] 05/29/24 She is on Aldactone 50 mg daily Gained 7 lbs and c/o increased swelling. 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 Other Mental health disorder Substance use disorder Social History Household Members: None Housing: Apartment Are you a primary hemodialysis patient care specialist to a significant other at home: No Do you presently have visiting nurse or other home services: No Unable to assess alcohol history related to: Unknown Alcohol intake: never Patient Tobacco Use Status: Never used Tobacco Tobacco use type: Cigarette Cigarettes Per Day: 5 Years Smoked: 17 years old e-Cigarette/Vaping Use: Never Used Substance Use Type: Heroin service: No Current occupational status: employed Cognitive needs: No Hearing needs: No Vision needs: No Female Reproductive History Menstrual Age of Menarche: 11 Physical Exam Vital Signs: Last Vital Signs Pulse 87 05/29/24 13:33 BP 122/68 05/29/24 13:33 Pulse Ox 99 05/29/24 13:33 Oxygen Delivery Method Room Air 05/29/24 13:33 BMI result Body Mass Index 28.7 Comfortable Neck supple no JVD. Lungs entry equal no rales. Heart S1-S2 heard no gallop or rub. Abdomen soft nontender. Neuro alert awake oriented. No asterixis. Extremities 2 + edema. Results Reviewed Nephrology Results: Hgb 8.5 g/dl (12.0-16.0) L 03/31/25 WBC 2.1 X10*3/uL (4.8-10.8) L 05/14/24 Plt Count 54 X10*3/uL (160-400) L 05/14/24 Sodium 137 mmol/L (135-145) 05/14/24 Potassium 4.3 mmol/L (3.3-5.1) 05/14/24 Chloride 105 mmol/L (96-108) 05/14/24 Carbon Dioxide 25 mmol/L (22-29) 05/14/24 BUN 25 mg/dL (9-16) H 05/14/24 Creatinine 1.90 mg/dL (0.5-1.4) H 05/14/24 Calcium 8.2 mg/dL (8.4-10.2) L 05/24/24 Urine Protein Negative mg/dL (Neg-Trace) 05/24/24 Assessment & Plan Assessment & Plan (1) CKD (chronic kidney disease): Code(s): N18.9 - Chronic kidney disease, unspecified Category: Medical (2) Liver cirrhosis: Code(s): K74.60 - Unspecified cirrhosis of liver Category: Medical Qualifiers: Hepatic cirrhosis type: secondary biliary cirrhosis Qualified Code(s): K74.4 - Secondary biliary cirrhosis (3) Iron deficiency anemia: Code(s): D50.9 - Iron deficiency anemia, unspecified Category: Medical Qualifiers: Iron deficiency anemia type: chronic blood loss Qualified Code(s): D50.0 - Iron deficiency anemia secondary to blood loss (chronic) Plan Pleasant middle-aged woman with CKD in a setting of longstanding hepatitis-C and cirrhosis. She has had episodes of acute kidney injury. At present renal function is close to baseline. She has no significant proteinuria. Urine sediments bland without any evidence of RBCs or casts. Recent imaging did not reveal any obstruction both kidneys appeared normal in size and texture. Even though she was history of hepatitis-C based on the bland urine sediments I do not think she has any active glomerular nephritis or interstitial disease at this time. The fluctuation in serum creatinine is primarily hemodynamic due to the use of diuretics. Recommendation at this point would be to keep her on a low-sodium diet. Continue with current dose of diuretics. Monitor weight at home. I have encouraged her to adjust the diuretics based on a daily weight. If she continues to lose more than 2-4 lb we can cut back on Lasix another on the other hand if she gains more than 2-4 lb from her usual dry weight she can increase the Lasix. She should avoid nephrotoxic agents including NSAIDs. She has significant anemia. Recent iron stores were low with a low iron saturation. She should restart oral iron supplementation and if necessary she can also receive intravenous iron like Venofer. Pancytopenia in the setting of cirrhosis. Platelet count has marginally improved. 05/29/24 Increase SPironolactone to 50 mg BID Stay on LOW sodium diet Orders: Orders Basic Metabolic Panel 1 Week N18.9 - Chronic kidney disease, unspecified Coding Level of Care Code Est Pt Level 4 (45875) Diagnoses CKD (chronic kidney disease) N18.9 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
--- OUTSIDE RECORDS SUMMARY | 2024-05-29 16:32 | XMS_ITS | Clinical Summary ---
Author Organization [facility] Address [address] [place] [address] Care Team Providers Care Exhaust Emissions Automotive Technician Name Role Phone David Ortiz MD Primary Care Provider [phone] Allergies Active Allergy Reactions Criticality Noted Date [...] 08/02/2022 Active cefdinir (OMNICEF) 300 MG capsuleIndications:Ac [place] respiratory failure with hypoxia (HCC) Take 1 [...] Nonreactive Nonreactive S/CO 08/02/2022 11:51 AM EDT [facility] Hepatitis B Core Antibody IgM Nonreactive Nonreactive 08/02/2022 11:51 AM EDT [facility] Hepatitis B Surface Ag Screen Nonreactive Nonreactive 08/02/2022 11:51 AM EDT [facility] Hepatitis C Antibody 10.79(H) 0.00 - 0.79 S/CO ratio 08/02/2022 11:51 AM EDT [facility] Hepatitis C Antibody Interpretation Reactive(A) Nonreactive 08/02/2022 11:51 AM EDT [facility] Hepatitis Interpretation: These results indicate Hepatitis C infection. 08/02/2022 11:51 AM EDT [facility] Blood specimen (specimen) Serum specimen / Unknown 07/30/2022 8:26 PM EDT 07/30/2022 8:34 PM EDT Comment:Serum~Plasma Shanti Matt MD LAB BLOOD ORDERABL ES HOSPITAL LAB See Below [facility] [address] [place] [address] * (ABNORMAL) Hemoglobin A1c with Estimated Average Glucose (07/29/2022 3:44 AM EDT) Hemoglobin A1C 5.7(H) <5.7 % 07/29/2022 8:47 AM EDT [facility] Comment: A1c% ? Interpretation 5.7 - 6.0 ?Increase risk of diabetes 6.1 - 6.4 ?Higher risk of diabetes > or = 6.5 ?? Consistent with diabetes Diabetes Care, 33(Supp 1):S1-S61, 2010 Estimated Average Glucose 117 mg/dL 07/29/2022 8:47 AM EDT [facility] Blood specimen (specimen) Blood specimen / Unknown 07/29/2022 3:44 AM EDT 07/29/2022 3:49 AM EDT Artis Plata MD LAB BLOOD ORDERABLES HOSPITAL LAB See Below [facility] [address] [place] [address] from Last 3 Months or Most Recently Relevant to Health Maintenance Advance Directives * Full Code (Latest Code Status on File) Date Activated Date Inactivated Comments 07/28/2022 10:27 PM Care Teams Exhaust Emissions Automotive Technician Relationship Specialty Start Date End Date David Ortiz MD 1961 [facility][Note 3] [place] [id number] PCP - General Internal Medicine 07/29/22
--- OUTSIDE RECORDS SUMMARY | 2024-05-29 16:32 | XMS_ITS | Clinical Summary ---
Author Organization [facility] Facility Address [address] [place] [id number] Care Team Providers Care Sand Drier Name Role Phone David Ortiz MD Primary Care Provider [phone] Social History Tobacco Use Types Packs/Day Years [...] patient's age to complete this topic Insurance [facility] One Care Dual SNP ([id number]) Care Teams Sand Drier Relationship Specialty Start Date End Date David Ortiz MD [address] [place] [id number] PCP - General Internal Medicine 12/12/23
== END 2024-05-29 13:52 | disposition home or self-care (01) ==
LOC: HO.HKA 13:31
PROVIDERS: PCP Internal Medicine; Visit Provider Internal Medicine Hypertension Specialist
DX: N18.9 Chronic kidney disease, unspecified (principal); K74.4 Secondary biliary cirrhosis; D50.0 Iron deficiency anemia secondary to blood loss (chronic)
CPT/HCPCS: 99214

== ENCOUNTER → 2024-05-29 13:31 | Outpatient (BNVA) | payer OTHER, SELFPAY ==
--- OUTSIDE RECORDS SUMMARY | 2024-05-29 17:20 | XMS_ITS | Clinical Summary ---
Author Organization [facility] Facility Address [address] [place] [address] Care Team Providers Care Nurses Aide Name Role Phone David Ortiz MD Primary Care Provider [phone] Social History Tobacco Use Types Packs/Day Years [...] patient's age to complete this topic Insurance [facility] One Care Dual SNP ([id number]) Care Teams Nurses Aide Relationship Specialty Start Date End Date David Ortiz MD [address] [place] [id number] PCP - General Internal Medicine 12/12/23
--- OUTSIDE RECORDS SUMMARY | 2024-05-29 17:20 | XMS_ITS | Clinical Summary ---
Author Organization [facility] Address [address] [place] [address] Care Team Providers Care Cylinder Steamer Name Role Phone David Ortiz MD Primary Care Provider [phone] Allergies Active Allergy Reactions Criticality Noted Date [...] 08/02/2022 Active cefdinir (OMNICEF) 300 MG capsuleIndications:Ac [place] respiratory failure with hypoxia (HCC) Take 1 [...] Nonreactive Nonreactive S/CO 08/02/2022 11:51 AM EDT [facility] Hepatitis B Core Antibody IgM Nonreactive Nonreactive 08/02/2022 11:51 AM EDT [facility] Hepatitis B Surface Ag Screen Nonreactive Nonreactive 08/02/2022 11:51 AM EDT [facility] Hepatitis C Antibody 10.79(H) 0.00 - 0.79 S/CO ratio 08/02/2022 11:51 AM EDT [facility] Hepatitis C Antibody Interpretation Reactive(A) Nonreactive 08/02/2022 11:51 AM EDT [facility] Hepatitis Interpretation: These results indicate Hepatitis C infection. 08/02/2022 11:51 AM EDT [facility] Blood specimen (specimen) Serum specimen / Unknown 07/30/2022 8:26 PM EDT 07/30/2022 8:34 PM EDT Comment:Serum~Plasma Shanti Matt MD LAB BLOOD ORDERABL ES HOSPITAL LAB See Below [facility] [address] [place] [address] * (ABNORMAL) Hemoglobin A1c with Estimated Average Glucose (07/29/2022 3:44 AM EDT) Hemoglobin A1C 5.7(H) <5.7 % 07/29/2022 8:47 AM EDT [facility] Comment: A1c% ? Interpretation 5.7 - 6.0 ?Increase risk of diabetes 6.1 - 6.4 ?Higher risk of diabetes > or = 6.5 ?? Consistent with diabetes Diabetes Care, 33(Supp 1):S1-S61, 2010 Estimated Average Glucose 117 mg/dL 07/29/2022 8:47 AM EDT [facility] Blood specimen (specimen) Blood specimen / Unknown 07/29/2022 3:44 AM EDT 07/29/2022 3:49 AM EDT Artis Plata MD LAB BLOOD ORDERABLES HOSPITAL LAB See Below [facility] [address] [place] [address] from Last 3 Months or Most Recently Relevant to Health Maintenance Advance Directives * Full Code (Latest Code Status on File) Date Activated Date Inactivated Comments 07/28/2022 10:27 PM Care Teams Cylinder Steamer Relationship Specialty Start Date End Date David Ortiz MD [address] [facility] [place] [phone] PCP - General Internal Medicine 07/29/22
== END ==
LOC: CF 14:31
PROVIDERS: PCP Internal Medicine; Visit Provider Internal Medicine Hypertension Specialist
DX: E11.22 Type 2 diabetes mellitus with diabetic chronic kidney disease (principal); N18.9 Chronic kidney disease, unspecified; K74.4 Secondary biliary cirrhosis; D50.0 Iron deficiency anemia secondary to blood loss (chronic); Z86.19 Personal history of other infectious and parasitic diseases
CPT/HCPCS: 99212

== ENCOUNTER 2024-06-18 11:35 | Outpatient (REF) | payer OTHER, SELFPAY ==
[2024-06-18 12:59] LABS: Appearance Urine Clear; Color Urine Yellow; Glucose Urine UA Negative (Negative); Leukocyte Esterase Urine Negative (Negative); Nitrite Urine Negative (Negative); Specific Gravity - Urine 1.015 (1.005-1.025); Urine Blood Negative (Negative); Urine Ketones Negative (Negative); Urine Protein Negative (Neg-Trace)
[2024-06-18 13:12] LABS: Anion Gap 11 (12-20); Blood Urea Nitrogen 18 mg/dL (9-16); Calcium 8.2 mg/dL (8.4-10.2); Carbon Dioxide 27 mmol/L (22-29); Chloride 107 mmol/L (96-108); Estimated Glomerular Filt Rate 34; Glucose Random 134 mg/dL (60-115); Potassium 4.6 mmol/L (3.3-5.1); Sodium 140 mmol/L (135-145)
--- OUTSIDE RECORDS SUMMARY | 2024-06-18 13:23 | XMS_ITS | Clinical Summary ---
Author Organization [facility] Address [address] [place] [address] Care Team Providers Care Copy Center Associate Name Role Phone David Ortiz MD Primary Care Provider [phone] Allergies Active Allergy Reactions Criticality Noted Date Comments Ciprofloxacin Anaphylaxis High 07/28/2022 Swelling of the throat Nitrofurantoin Hepatitis/Abnormal L iver Function High 07/28/2022 Medications furosemide (LASIX) 40 MG tabletIndication s:Acute respiratory failure with hypoxia (HCC) Take 1 tablet (40 mg total) by mouth daily. 30 tablet 08/01/2022 Active levothyroxine (SYNTHROID, LEVOTHROID) 50 MCG tabletIndication s:Acute respiratory failure with hypoxia (HCC) Take 1 tablet (50 mcg total) by mouth daily on an empty stomach. Do not start before August 02, 2022. 30 tablet 08/02/2022 Active metoPROLOL SUCCINATE (TOPROL-XL) 25 MG 24 hr tabletIndication s:Acute respiratory failure with hypoxia (HCC) Take 1 tablet (25 mg total) by mouth daily. 30 tablet 08/01/2022 Active methadone (DOLOPHINE) 10 mg/5 mL oral solutionIndicati ons:Acute respiratory failure with hypoxia (HCC) Take 37.5 mL (75 mg total) by mouth daily. Do not start before August 02, 2022. Max Daily Amount: 75 mg 0 08/02/2022 Active cefdinir (OMNICEF) 300 MG capsuleIndicatio ns:Acute respiratory failure with hypoxia (HCC) Take 1 capsule (300 mg total) by mouth 2 (two) times a day. 20 capsule 08/01/2022 Active hyoscyamine (LEVSIN) 0.125 MG tabletIndication s:Acute respiratory failure with hypoxia (HCC) Take 1 [...] Q uit: No; Counseling Given: Not Answered Comments Unknown Sex and Gender Information Value Date Recorded Sex Assigned at Female 07/30/2022 9:09 AM EDT Legal Sex Female 4:43 PM EDT Gender Identity Not on file Sexual [...] Health Maintenance Due Date Last Done Comments HIV Screening 10/03/1983 DTaP/Tdap/Td Vaccines (1 - Tdap) 1989 Hepatitis B Vaccines (1 of 3 - + 3-dose series) 1989 Pneumococcal Vaccines 50+ (1 of 2 - PCV) 1989 Pap Smear (Ages 21-65) 10/03/1991 Mammogram 2010 Colonoscopy 10/03/2015 Zoster (Shingles) Vaccine (1 of 2) 2020 Influenza Vaccine 09/15/2023 COVID-19 Vaccine (1 - 2023- season) 2023 Hemoglobin A1C Discontinued 07/29/2022 Hepatitis [...] Nonreactive Nonreactive S/CO 08/02/2022 11:51 AM EDT [facility] Hepatitis B Core Antibody IgM Nonreactive Nonreactive 08/02/2022 11:51 AM EDT [facility] Hepatitis B Surface Ag Screen Nonreactive Nonreactive 08/02/2022 11:51 AM EDT [facility] Hepatitis C Antibody 10.79(H) 0.00 - 0.79 S/CO ratio 08/02/2022 11:51 AM EDT [facility] Hepatitis C Antibody Interpretation Reactive(A) Nonreactive 08/02/2022 11:51 AM EDT [facility] Hepatitis Interpretation: These results indicate Hepatitis C infection. 08/02/2022 11:51 AM EDT [facility] Blood specimen (specimen) Serum specimen / Unknown 07/30/2022 8:26 PM EDT 07/30/2022 8:34 PM EDT Comment:Serum~Plasma us Shanti Matt MD LAB BLOOD ORDERABLES Final Result HOSPITAL LAB See Below [facility] [address] [place] [address] * (ABNORMAL) Hemoglobin A1c with Estimated Average Glucose (07/29/2022 3:44 AM EDT) Hemoglobin A1C 5.7(H) <5.7 % 07/29/2022 8:47 AM EDT [facility] Comment: A1c% ? Interpretation 5.7 - 6.0 ?Increase risk of diabetes 6.1 - 6.4 ?Higher risk of diabetes > or = 6.5 ?? Consistent with diabetes Diabetes Care, 33(Supp 1):S1-S61, 2010 Estimated Average Glucose 117 mg/dL 07/29/2022 8:47 AM EDT [facility] Blood specimen (specimen) Blood specimen / Unknown 07/29/2022 3:44 AM EDT 07/29/2022 3:49 AM EDT us Artis Plata MD LAB BLOOD ORDERABLES Final Resul t HOSPITAL LAB See Below [facility] [address] [place] [address] from Last 3 Months or Most Recently Relevant to Health Maintenance Insurance [facility] MEDICARE OUT OF NETWORK [place]ERRA [id number] [facility] MEDICARE OUT OF NETWORK Advance Directives * Full Code (Latest Code Status on File) Date Activated Date Inactivated Comments 07/28/2022 10:27 PM Care Teams Copy Center Associate Relationship Specialty Start Date End Date David Ortiz MD [address] [place] [id number] PCP - General Internal Medicine 07/29/22
--- OUTSIDE RECORDS SUMMARY | 2024-06-18 13:23 | XMS_ITS | Clinical Summary ---
Author Organization [facility] Facility Address [address] [place] [address] Care Team Providers Care Fleet Administrative Assistant Name Role Phone David Ortiz MD Primary Care Provider [phone] Social History Tobacco Use Types Packs/Day Years [...] (1 of 3 - 19+ 3-dose series) 10/02 Colorectal Cancer Screening: Annual FOBT 10/03/2019 Colorectal Cancer Screening: Colonoscopy 10/03/2019 Colorectal Cancer Screening: Sigmoidoscopy 10/03/2019 Pneumococcal Vaccine: 50+ Years (1 of 1 - PCV) 021 Influenza Vaccine (Season Ended) 2024 Insurance [facility] One Care Dual SNP ([id number]) Care Teams Fleet Administrative Assistant Relationship Specialty Start Date End Date David Ortiz MD [address] [place] [address] [phone] PCP - General Internal Medicine 12/12/23
== END 2024-06-18 11:36 | disposition home or self-care (01) ==
LOC: HO.LAB 11:35
PROVIDERS: Absent Provider Internal Medicine Hypertension Specialist; PCP Internal Medicine; Visit Provider Internal Medicine
DX: N18.9 Chronic kidney disease, unspecified (principal)
CPT/HCPCS: 36415; 80048; 81003

== ENCOUNTER 2024-08-07 10:03 | Outpatient (AMB) | payer OTHER, SELFPAY ==
--- NOTE | 2024-08-07 10:06 | A.OFFVIS_ITS ---
Vital Signs 08/07/24 10:09 Height 5 ft 4 in Weight 167 lb 8.821 oz BMI 28.8 BP 120/75 Blood Pressure Location Lt brachial Position Sitting Pulse 85 Intake Visit Reasons: *confirmed 08/06* abdominal pain and swelling Intake Note: Ivonne presents in the office as a follow up for pains and bloating. CC: she wants to know if she can have her blood work done - she states she is due for the ultrasound too. Kidney Dr said she does NOT have kidney disease and she is severely anemic she states - she is not sure why she needs to be seen for labs that are routine. 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 Allergies ciprofloxacin (Cipro) Allergy (Intermediate, Verified 08/07/24 10:10) swelling of the throat , hives iohexol (From Omnipaque) Allergy (Verified 08/07/24 10:10) Itching nitrofurantoin (From Macrobid) Adverse Reaction (Verified 08/07/24 10:10) Liver cirrhosis decompensation HPI Comments Details: This is a 51y.o female with past medical history of HCV (s/p SVR 2014) that led to liver cirrhosis, complicated by portal hypertension with ascites, small bowel Crohn's disease dx in 1994 (s/p ileocecectomy 1994, partial small bowel resec tion 1996, small bowel stricturoplasty 1998) currently not on any meds, who presents to our office for follow up. Recap: - Initially seen 04/2022 for ERNA and HCV cirrhosis. Booked for EGD/colo but pt canceled her procedures at that time. - 07/2022 admitted for decomp cirrhosis and resp failure 2/2 large R sided pleural effusion. Transferred from [facility] to [facility] due to ICU bed shortage. Pt left AMA from [facility]. - -09/2022 actively managed for ascites and hepatic hydrothorax with meds + jean. - 10/2022 - EGD/colo varices with EVBL, PHG. [place] was poor prep. Repeat recommended within a year. Got a port a cath due to poor IV access. - 11/2022 - referred to [facility] transplant hep. Now estbalished with Dr Racheal Renee. - Was doing better between fall 2022- spring 2023. - 04/2023 - syncopal episode from hypoglycemia while prepping for EGD/colo. Downstairs jade heard her fall and got help. Nasal glucagon. Referred to [facility] endocrine (was lost to follow up for hypothryoid) - -10/2023 - issues with renal function requiring close titration of diuretics - 10/2023 - also reported tenderness in mid to upper back. XRAY spine ordered but due to Radiology staffing issues was not read till 01/17/2024 (see below) - - had 2 back to back hospitalizations. [facility]: anemia and RHINA. [facility]: abd pain and diarrhea - C Diff colitis. Completed PO vanc. Pt was offered colo on urgent basis but declined due to transport issues. - 01/2024 - Pap smear completed (req by [facility]). HPV pos, will need repeat next year. Xrays from Oct were finally reported. Urgent MRI and referrals generated. - 03/2024 - decided to not proceed with pain mgmt referral for thoracic spine compression Fx. Endocrine referral and dexa scan still pending. 08/07/24: Here for follow up. Had to cancel yet another colo due to low blood sugars. Had sugar of 47 within 8 hours of starting CLD. As outlined before, this has been a longstanding issue. She recalls having been admitted in [place] back in early for a fasting test when her sugars dropped in 20s. Endocrinology referral was generated but does not seem that pt ever went. This is a big road block to completing endoscopic evaluation. Pt has canceled endoscopic procedures at least 3-4 times in the last 1 year due to various reasons (unable to tolerate prep, hypoglycemia, mom unwell). She also did not show for the dexa scan. To recall had spontaneous thoracic spine fx. In terms of cirrhosis, has gained 5lbs in the last one week and notices some increased abd discomfort. No resp issues. Anemia stable as of April. Due for recheck. No overt bleeding reported by pt. 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 Other Mental health disorder Substance use disorder Social History Household Members: None Housing: Apartment Are you a primary managed care analyst to a significant other at home: No Do you presently have visiting nurse or other home services: No Unable to assess alcohol history related to: Unknown Alcohol intake: never Patient Tobacco Use Status: Never used Tobacco Tobacco use type: Cigarette Cigarettes Per Day: 5 Years Smoked: 17 years old e-Cigarette/Vaping Use: Never Used Substance Use Type: Heroin service: No Current occupational status: employed Cognitive needs: No Hearing needs: No Vision needs: No Female Reproductive History Menstrual Age of Menarche: 11 Review of Systems Const All systems reviewed & are unremarkable except as noted in HPI and below Physical Exam Vital Signs: Last Vital Signs Pulse 85 08/07/24 10:09 BP 120/75 08/07/24 10:09 BMI result Body Mass Index 28.8 No apparent distress Nonicteric No resp distress Abdomen soft, distended, shifting dullness to percussion Alert and oriented x3, normal gait Assessment & Plan Assessment & Plan (1) Decompensated hepatic cirrhosis: Code(s): K72.90 - Hepatic failure, unspecified without coma; K74.60 - Unspecified cirrhosis of liver Category: Medical (2) Pancytopenia: Code(s): D61.818 - Other pancytopenia Category: Medical (3) History of hepatitis C: Code(s): Z86.19 - Personal history of other infectious and parasitic diseases Category: Medical (4) Hypoglycemia: Code(s): E16.2 - Hypoglycemia, unspecified Category: Medical (5) Thoracic spine fracture: Code(s): S22.009A - Unspecified fracture of unspecified thoracic vertebra, initial encounter for closed fracture Category: Medical (6) Iron deficiency anemia: Code(s): D50.9 - Iron deficiency anemia, unspecified Category: Medical Qualifiers: Iron deficiency anemia type: chronic blood loss Qualified Code(s): D50.0 - Iron deficiency anemia secondary to blood loss (chronic) (7) Crohn's disease: Code(s): K50.90 - Crohn's disease, unspecified, without complications Category: Medical Qualifiers: Gastrointestinal tract location: large intestine Digestive disease complication type: without complication Qualified Code(s): K50.10 - Crohn's disease of large intestine without complications (8) Liver cirrhosis: Code(s): K74.60 - Unspecified cirrhosis of liver Category: Medical Qualifiers: Hepatic cirrhosis type: secondary biliary cirrhosis Qualified Code(s): K74.4 - Secondary biliary cirrhosis Plan 1. Decomp cirrhosis: - Likely secondary to HCV (treated) + VIDES MELD Na 17 Has small ascites on exam. No HE. Due for US Abd. Plan: - HCC screening - US Abd ordered - Cont spironolactone 100/day - Check BMP. If kidney function stable, will favor adding lasix 20 mg for ascites. - Coreg 6.25 BID - Next EGD due but as above, procedures have been canceled multiple times by the pt - Rifaximin 550 BID - Follows with [facility] transplant hep Dr Renee - Again reminded re low sodium diet and maintaining good protein intake 2. ERNA: S/p 2u PRBC transfusion in Jan. H/H steady in Spring. Due for repeat labs. Again, she needs bidirectional endoscopy which has been arranged for her multiple times in the past one year but canceled by pt due to various reasons. Most recently low blood sugars is the main issue. BG dropped in 40s with CLD. Unclear if shes had appropriate endocrinology w.up for this. May need 72h fasting testing. - Unfortunately no in-patient endocrinology at [facility]. Will coordinate with [facility] hep ? admission for glycopenic sx +/- colo. - Check CBC and iron panel 3. Multiple T spine fractures Highly suggestive of underlying osteoporosis. Hx of crohns, extensive steroid exposure, fam hx of osteo ++. Pt did not show for dexa earlier this year. Plan: - Dexa re-ordered - Cont Bob +vit D - Endocrine referral was made but unclear if pt actually attended her appt. 4. ?? HYpoglycemia Sx description concerning for glycopenic sx. Had documented HYPOglycemia when she passed out in April 2023 while prepping for colo. Referred to [facility] endocrine 2 times but pt did not pursue. As above, will coordinate with [facility] Hep re further eval potentially inpt. Follow up 2 months Orders: Orders Comprehensive Met. Panel Today D64.9 - Anemia, unspecified Prothrombin Time INR Today D64.9 - Anemia, unspecified Ferritin Today D64.9 - Anemia, unspecified Complete Blood Count no Diff Today D64.9 - Anemia, unspecified IRON PROFILE Today D64.9 - Anemia, unspecified US abdomen complete Today K74.4 - Secondary biliary cirrhosis XR DEXA axial skeleton Today M85.80 - Other specified disorders of bone density and structure, unspecified site Medications: Refilled calcium carbonate-vitamin D3 600 mg-20 mcg (800 unit) (Caltrate with Vitamin D3) 1 tab PO DAILY 90 tabs 1RF 90 days Coding Level of Care Code Est Pt Level 5 (75405) Complex EM visit Add On G2211 Diagnoses Decompensated hepatic cirrhosis K72.90; K74.60 Pancytopenia D61.818 History of hepatitis C Z86.19 Hypoglycemia E16.2 Thoracic spine fracture S22.009A Iron deficiency anemia due to chronic blood loss D50.0 Iron deficiency anemia type: chronic blood loss Crohn's disease of large intestine without complication K50.10 Gastrointestinal tract location: large intestine Digestive disease complication type: without complication Secondary biliary cirrhosis K74.4 Hepatic cirrhosis type: secondary biliary cirrhosis
[2024-08-07 10:09] VITALS: BP 120/75; PULSE 85; BMI 28.8
--- OUTSIDE RECORDS SUMMARY | 2024-08-07 11:03 | XMS_ITS | Clinical Summary ---
Author Organization [facility] Facility Address [address] [place] [address] Care Team Providers Care Electrician Substation Supervisor Name Role Phone David Ortiz MD Primary Care Provider [phone] Social History Tobacco Use Types Packs/Day Years [...] 021 Influenza Vaccine (Season Ended) 2024 Insurance [facility] One Care Dual SNP ([id number]) Care Teams Electrician Substation Supervisor Relationship Specialty Start Date End Date David Ortiz MD [address] [place] [address] [phone] PCP - General Internal Medicine 12/12/23
== END 2024-08-07 10:47 | disposition home or self-care (01) ==
LOC: HO.HGI 10:04
PROVIDERS: PCP Internal Medicine; Visit Provider Internal Medicine
DX: K72.90 Hepatic failure, unspecified without coma (principal); K74.4 Secondary biliary cirrhosis; D61.818 Other pancytopenia; Z86.19 Personal history of other infectious and parasitic diseases; D50.0 Iron deficiency anemia secondary to blood loss (chronic); K50.10 Crohn's disease of large intestine without complications
CPT/HCPCS: 99214; G2211

== ENCOUNTER → 2024-08-07 10:03 | Outpatient (BNVA) | payer OTHER, SELFPAY | PROVIDERS: PCP Internal Medicine; Visit Provider Internal Medicine | DX: K50.10 Crohn's disease of large intestine without complications (principal); K74.60 Unspecified cirrhosis of liver; D61.818 Other pancytopenia; Z86.19 Personal history of other infectious and parasitic diseases; E16.2 Hypoglycemia, unspecified; S22.009A Unspecified fracture of unspecified thoracic vertebra, initial encounter for closed fracture; D50.0 Iron deficiency anemia secondary to blood loss (chronic); K74.4 Secondary biliary cirrhosis | CPT/HCPCS: 99212 ==

== ENCOUNTER 2024-08-09 14:07 | Outpatient (REF) | payer OTHER, SELFPAY ==
[2024-08-09 15:29] LABS: Hematocrit 21.8 % (37.0-47.0); Mean Corpuscular HGB Conc 29.8 g/dl (31.0-35.0); Mean Corpuscular Hemoglobin 26.5 pg (27.0-33.0); Mean Platelet Volume 11.2 fL (9.4-12.3); Red Blood Count 2.45 X10*6/uL (4.20-5.50); Red Cell Distribution Width 15.7 % (11.0-16.0)
[2024-08-09 15:32] LABS: Platelet Count 57 X10*3/uL (160-400); White Blood Count 2.4 X10*3/uL (4.8-10.8)
[2024-08-09 15:37] LABS: Hemoglobin 6.5 g/dl (12.0-16.0)
[2024-08-09 15:41] LABS: INTERNATIONAL NORM RATIO 2.6 (0.9-1.1); Prothrombin Time 30.4 SEC (10.9-12.4)
[2024-08-09 15:54] LABS: Alanine Aminotransferase < 6 U/L (0-31); Albumin Level 3.1 g/dL (3.5-5.0); Alkaline Phosphatase 84 U/L (39-117); Anion Gap 11 (12-20); Aspartate Amino Transferase 20 U/L (5-31); Bilirubin Total 1.2 mg/dL (0.0-1.0); Blood Urea Nitrogen 16 mg/dL (9-16); Calcium 8.5 mg/dL (8.4-10.2); Carbon Dioxide 28 mmol/L (22-29); Chloride 101 mmol/L (96-108); Estimated Glomerular Filt Rate 33; Glucose Random 192 mg/dL (60-115); Iron 35 mcg/dL (30-160); Percent Iron Saturation 10 % (15-50); Potassium 4.4 mmol/L (3.3-5.1); Sodium 136 mmol/L (135-145); Total Iron Binding Capacity 358 mcg/dL (228-428); Total Protein 6.2 g/dL (6.5-8.0); Unsaturated Iron Binding 323 ug/dL
[2024-08-09 16:06] LABS: Ferritin 9 ng/mL (10-250)
--- OUTSIDE RECORDS SUMMARY | 2024-08-09 17:06 | XMS_ITS | Clinical Summary ---
Author Organization [facility] Facility Address [address] [place] [id number] Care Team Providers Care Director Of Blood Name Role Phone David Ortiz MD Primary Care Provider [phone] Social History Tobacco Use Types Packs/Day Years [...] 021 Influenza Vaccine (Season Ended) 2024 Insurance [facility] One Care Dual SNP ([id number]) Care Teams Director Of Blood Relationship Specialty Start Date End Date David Ortiz MD [address] [place] [address] [phone] PCP - General Internal Medicine 12/12/23
== END 2024-08-09 14:08 | disposition home or self-care (01) ==
LOC: HO.LAB 14:07
PROVIDERS: PCP Internal Medicine; Visit Provider Internal Medicine
DX: D64.9 Anemia, unspecified (principal)
CPT/HCPCS: 36415; 80053; 82728; 83540; 85027; 85610

== ENCOUNTER 2024-11-29 10:18 | Outpatient (REF) | payer OTHER, SELFPAY ==
[2024-11-29 11:26] LABS: Hematocrit 30.9 % (37.0-47.0); Hemoglobin 9.3 g/dl (12.0-16.0); Mean Corpuscular HGB Conc 30.1 g/dl (31.0-35.0); Mean Corpuscular Hemoglobin 25.5 pg (27.0-33.0); Mean Corpuscular Volume 84.7 fL (80.0-98.0); NRBC Abs Auto 0.000 X10*3/uL (0.0-0.012); NRBC Pct Auto 0.0 /100WBC (0.0-0.2); Red Blood Count 3.65 X10*6/uL (4.20-5.50); White Blood Count 5.3 X10*3/uL (4.8-10.8)
[2024-11-29 11:28] LABS: Platelet Count 76 X10*3/uL (160-400)
[2024-11-29 11:35] LABS: INTERNATIONAL NORM RATIO 2.6 (0.9-1.1); Prothrombin Time 29.9 SEC (10.9-12.4)
[2024-11-29 11:47] LABS: Alanine Aminotransferase 11 U/L (0-31); Albumin Level 3.3 g/dL (3.5-5.0); Anion Gap 13 (12-20); Aspartate Amino Transferase 32 U/L (5-31); Blood Urea Nitrogen 13 mg/dL (9-16); Calcium 8.7 mg/dL (8.4-10.2); Carbon Dioxide 25 mmol/L (22-29); Chloride 107 mmol/L (96-108); Estimated Glomerular Filt Rate 41; Potassium 4.2 mmol/L (3.3-5.1); Sodium 141 mmol/L (135-145); Total Protein 6.7 g/dL (6.5-8.0)
[2024-11-29 12:06] LABS: Alkaline Phosphatase 100 U/L (39-117)
--- OUTSIDE RECORDS SUMMARY | 2024-11-29 12:41 | XMS_ITS | Clinical Summary ---
Author Organization [facility] Address [address] [place] [address] Care Team Providers Care Bulk Plant Supervisor Name Role Phone David Ortiz MD Primary Care Provider [phone] Allergies Active Allergy Reactions Criticality Noted Date [...] 85 08/01/2022 8:09 AM EDT Temperature 37 C (98.6 F) 08/01/2022 8:09 AM EDT Respiratory Rate 18 [...] Vaccine (1 of 2) 2020 Influenza Vaccine 09/14/2024 COVID-19 Vaccine (1 - season) 2024 RSV Vaccine 50 years and old er and Patients (1 - 1-dose 75+ series) 2045 Hemoglobin A1C Discontinued 07/29/2022 Hepatitis C Virus [...] Nonreactive Nonreactive S/CO 08/02/2022 11:51 AM EDT [facility] Hepatitis B Core Antibody IgM Nonreactive Nonreactive 08/02/2022 11:51 AM EDT [facility] Hepatitis B Surface Ag Screen Nonreactive Nonreactive 08/02/2022 11:51 AM EDT [facility] Hepatitis C Antibody 10.79(H) 0.00 - 0.79 S/CO ratio 08/02/2022 11:51 AM EDT [facility] Hepatitis C Antibody Interpretation Reactive(A) Nonreactive 08/02/2022 11:51 AM EDT [facility] Hepatitis Interpretation: These results indicate Hepatitis C infection. 08/02/2022 11:51 AM EDT [facility] Blood specimen (specimen) Serum specimen / Unknown 07/30/2022 8:26 PM EDT 07/30/2022 8:34 PM EDT Comment:Serum~Plasma us Shanti Matt MD LAB BLOOD ORDERABLES Final Result HOSPITAL LAB See Below [facility] [address] [place] [address] * (ABNORMAL) Hemoglobin A1c with Estimated Average Glucose (07/29/2022 3:44 AM EDT) Hemoglobin A1C 5.7(H) <5.7 % 07/29/2022 8:47 AM EDT [facility] Comment: A1c% Interpretation 5.7 - 6.0 Increase risk of diabetes 6.1 - 6.4 Higher risk of diabetes > or = 6.5 Consistent with diabetes Diabetes Care, 33(Supp 1):S1-S61, 2010 Estimated Average Glucose 117 mg/dL 07/29/2022 8:47 AM EDT [facility] Blood specimen (specimen) Blood specimen / Unknown 07/29/2022 3:44 AM EDT 07/29/2022 3:49 AM EDT us Artis Plata MD LAB BLOOD ORDERABLES Final Resul t HOSPITAL LAB See Below [address] [address] from Last 3 Months or Most Recently Relevant to Health Maintenance Insurance [facility] MEDICARE OUT OF NETWORK NORBERTO GUERRA [id number] [facility] MEDICARE OUT OF NETWORK Advance Directives * Full Code (Latest Code Status on File) Date Activated Date Inactivated Comments 07/28/2022 10:27 PM Care Teams Bulk Plant Supervisor Relationship Specialty Start Date End Date David Ortiz MD [address] [place] [id number] PCP - General Internal Medicine 07/29/22
--- OUTSIDE RECORDS SUMMARY | 2024-11-29 12:41 | XMS_ITS ---
Author Name [facility] Organization Unknown History of Medication Use Medication Directions Dispensed Refills Start Date End Date Stat us levothyroxine (SYNTHROID, LEVOTHROID) 50 MCG tablet Take 1 tablet (50 mcg total) by mouth daily on an empty stomach. Do not start before August 02, 2022. 08/02/2022 09/02/2022 active methadone (DOLOPHINE) 10 mg/5 mL oral solution Take 37.5 mL (75 mg total) by mouth daily. Do not start before August 02, 2022. Max Daily Amount: 75 mg 08/02/2022 active furosemide (LASIX) 40 MG tablet Take 1 tablet (40 mg total) by mouth daily. 08/01/2022 09/01/2022 active metoPROLOL SUCCINATE (TOPROL-XL) 25 MG 24 hr tablet Take 1 tablet (25 mg total) by mouth daily. 08/01/2022 09/01/2022 active cefdinir (OMNICEF) 300 MG capsule Take 1 capsule (300 mg total) by mouth 2 (two) times a day. 08/01/2022 active hyoscyamine (LEVSIN) 0.125 MG tablet Take 1 tablet (0.125 mg total) by mouth daily. 08/01/2022 active Allergies Allergen Reaction Severity Comment Documented Date Source Statu s NITROFURANTOIN HEPATITIS/ABNORMA L LIVER FUNCTION 07/28/2022 [facility] active CIPROFLOXACIN ANAPHYLAXIS Swelling of the throat H[facility] Problems Problem Status Onset Date Problem Type Date of Resoluti on Source Pleural effusion on right active 2022-07-28 ProblemAct [facility] Ascites active 2022-07-28 ProblemAct [facility] Acute respiratory failure with hypoxia active 2022-07-28 ProblemAct [facility] Encounters Encounter Type Encounter Reason Primary Diagnosis Location Date Inpatient Acute respirator y failure with hypoxia [facility] 07/28/2022 Care Team Organization Name Specialty Phone Email Start Date End Da marisel [facility] 07/29/2022 [facility] 07/28/2022 07/29/2022 [facility]
== END 2024-11-29 10:19 | disposition home or self-care (01) ==
LOC: HO.LAB 10:18
PROVIDERS: PCP Internal Medicine; Visit Provider Internal Medicine
DX: D50.0 Iron deficiency anemia secondary to blood loss (chronic) (principal)
CPT/HCPCS: 36415; 80053; 85027; 85610

== ENCOUNTER 2024-12-12 09:14 | Outpatient (AMB) | payer OTHER, SELFPAY ==
--- NOTE | 2024-12-12 09:16 | MHC.PC.OV ---
Vital Signs 12/12/24 09:20 Height 5 ft 4 in Weight 172 lb 6 oz BMI 29.6 BP 122/74 Blood Pressure Location Lt brachial Position Sitting Respiration 16 Pulse 80 Pulse Source Pulse Oximeter Temp 99.1 F Temp Source Oral Pulse Oximetry (%) 97 Oxygen Delivery Method Room Air Intake Visit Reasons: A1C , LIVER TRANSPLA CONCERN Allergies ciprofloxacin (Cipro) Allergy (Intermediate, Verified 08/07/24 10:10) swelling of the throat , hives iohexol (From Omnipaque) Allergy (Verified 08/07/24 10:10) Itching nitrofurantoin (From Macrobid) Adverse Reaction (Verified 08/07/24 10:10) Liver cirrhosis decompensation Medication List - Last Reconciled 12/12/24 by David Ortiz MD acyclovir 400 mg PO BEDTIME calcium carbonate-vitamin D3 600 mg-20 mcg (800 unit) (Caltrate with Vitamin D3) 1 tab PO DAILY 90 days carvedilol 6.25 mg PO BID estradiol 0.01%(0.1mg/gram) 1 g vaginal 2XW fluticasone propionate 50 mcg/actuation (Flonase Allergy Relief) 1 spray intranasal DAILY PRN glucagon 3 mg/actuation 3 mg intranasal ONCE levothyroxine 50 mcg PO DAILY@0600 methadone 80 mg PO DAILY multivitamin 1 tab PO DAILY omeprazole 20 mg PO BEDTIME ondansetron 4 mg PO Q8H PRN rifaximin (Xifaxan) 550 mg PO BID spironolactone 100 mg (2 x 50 mg) PO DAILY terconazole 0.4% 1 appful vaginal BEDTIME 7 days Tobacco use date assessed: 10/07/23 Dental Screening Dental Screen Date: 10/07/23 HPI A1C , LIVER TRANSPLA CONCERN HPI Details History The patient is a 54-year-old female presenting for evaluation of sudden onset of blurry vision in the right eye. Blurry vision in the right eye : - The patient reports a one-week history of extremely blurry vision in her right eye, preventing her from seeing in detail, while her left eye remains unaffected. - She denies any associated irritation, infection, or mucoid discharge but does report sinus pressure from allergies. - The patient visited the emergency room at [facility] for this issue approximately 10 days ago, where a brain scan was reportedly normal, with no infection found and no definitive cause identified. - She has a history of a similar, though less severe, episode of fuzzy vision in both eyes two to three years ago, which was attributed to a severe vitamin A deficiency. Hepatic Cirrhosis: - The patient has a history of hepatic cirrhosis complicated by ascites, portal hypertension, splenomegaly, anemia, and pancytopenia. - She is currently on the liver transplant list and is followed by gastroenterology at [facility]. Hypothyroidism: - The patient has a history of hypothyroidism and takes thyroid medication prescribed from this office. - A TSH level has been ordered to be drawn with her next set of labs. Diabetes Mellitus: - The patient has a history of diabetes, with a recent hemoglobin A1c of 6.0%. Hypertension: - She has a history of hypertension but is currently off her blood pressure medication, with a reading of 122/74 mmHg today. Medical History: - Hepatic cirrhosis with ascites, portal hypertension, and splenomegaly - Anemia - Pancytopenia - Hypertension - Diabetes mellitus - Hypothyroidism - Crohn's disease - Currently on the liver transplant list - Multiple admissions to the emergency room Social History: - Employment: Patient works full-time. - Housing and Financial Status: Patient reports her rent is $1,050 per month, while her Social Security check is $1,046, creating a financial deficit. - She has been on a housing assistance list for many years without success.. Problem List - Hepatic cirrhosis - Liver transplant evaluation - Portal hypertension - Ascites - Splenomegaly - Anemia - Pancytopenia - Hypertension - Diabetes Mellitus - Hypothyroidism - Crohn's disease - Blurry vision in right eye - Preventative care: Influenza vaccination Diagnostic results - Labs from 11/29/this year: Hemoglobin 9.3 g/dL, electrolytes within normal limits, GFR 41 mL/min/1.73 m?, creatinine 1.34 mg/dL, total bilirubin 1.3 mg/dL, AST 32 U/L, albumin 3.3 g/dL. - Labs from today: Hemoglobin A1c 6.0%. - Imaging: The patient reports having a brain scan at the [place] approximately 10 days ago which was normal. [facility] of Care The patient is established with gastroenterology (Dr. Garcia) at [facility]. She gets her labs drawn at [facility] due to having a port. Plan - An urgent referral will be placed to [facility] for ophthalmology evaluation of sudden blurry vision in the right eye. - I will investigate why the notes from the patient's recent emergency room visit are not available in her chart. - A prescription for Vitamin A 7,000 units, #30 capsules, will be sent; the patient is instructed to take one capsule daily for a week and then weekly, and to discuss the regimen with the staff air defense officer. - A TSH level has been ordered to be drawn along with her next set of labs at [facility] to monitor her hypothyroidism. - Hemoglobin A1c was ordered to be checked today. 6.0 - The patient was advised to discuss getting the flu vaccine again with the nurse in [place] and to obtain it from a pharmacy if approved. - The patient is to follow up in April for a physical exam. Review of Systems General: No fever no chills neurological: No headaches ear nose throat: No sore throat no hearing difficulty no ear pain cardiovascular: No syncope, no chest pain, no palpitations gastrointestinal: No nausea vomiting or diarrhea skin: No new complaints Physical Exam general: No acute distress HEENT: Blurry vision in the right eye, no irritation, no infection, no mucus, VALERIANO, EOMI, no pain with palpation neck: Supple respiratory system: Able to talk in full sentences, no audible wheeze no stridor cardiovascular: S1-S2 RRR gastrointestinal: No pain extremities: No new findings SANITATION LEAD: Alert awake oriented x3 motor sensory intact skin: Normal turgor PFSH Medical History History of abdominal paracentesis History of central line-associated bloodstream infection (CLABSI) History of hepatitis C Acute on chronic anemia COPD (chronic obstructive pulmonary disease) Hydrothorax Ascites Pleural effusion, right Iron deficiency anemia Pancytopenia Ascites of liver Liver cirrhosis Hypertension, essential Allergic rhinitis Lipid disorder Rosacea Rheumatoid arthritis 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 Other Mental health disorder Substance use disorder Social History Household Members: None Housing: Apartment Are you a primary director of career resources to a significant other at home: No Do you presently have visiting nurse or other home services: No Alcohol intake: never Patient Tobacco Use Status: Never used Tobacco Tobacco use type: Cigarette Cigarettes Per Day: 5 Years Smoked: 17 years old e-Cigarette/Vaping Use: Never Used Substance Use Type: Heroin service: No Current occupational status: employed Cognitive needs: No Hearing needs: No Vision needs: No Female Reproductive History Menstrual Age of Menarche: 11 Questionnaire PHQ-9 Over the last 2 weeks, how often have you been bothered by any of the following problems? 1. Little interest or pleasure in doing things: not at all 2. Feeling down, depressed, or hopeless: not at all 3. Trouble falling or staying asleep, or sleeping too much: not at all 4. Feeling tired or having little energy: not at all 5. Poor appetite or overeating: not at all 6. Feeling bad about yourself - or that you are a failure or have let yourself or your family down: not at all 7. Trouble concentrating on things, such as reading the newspaper or watching television: not at all 8. Moving or speaking so slowly that other people could have noticed. Or the opposite - being so fidgety or restless that you have been moving around a lot more than usual: not at all 9. Thoughts that you would be better off or of hurting yourself in some way: not at all Total score: 0 Depression Screening Interpretation: Negative Depression Screening Done: Yes [id number] - PHQ-9 Billing: Yes Source: Developed by Drs. Valeriano Bhakta, Lara Quinones, Julian Golden and colleagues, with an educational maria from [employer]. Thrive Questionnaire Date Thrive assessed: 11/23/23 I am a: Patient What is your living situation today?: I have a steady place to live Within the past 12 months, did the food you bought not last and you didn't have the money to get more?: Sometimes True Within the past 12 months, did you worry whether your food would run out before you got money to buy more?: Sometimes True Do you have trouble paying for medicines?: No Do you have trouble getting transportation to medical appointments?: No Do you have trouble paying your heating and electricity bill?: Yes Do you have trouble taking care of your child, family member or friend?: No Do you have trouble with day-to-day activities such as bathing, preparing meals, shopping, managing finances, etc.?: No Are you currently unemployed and looking for a job?: No Are you interested in more education?: No Please select the resources that you would like help with: Utilities Currently or been in a relationship where the following occur: No concerns reported THRIVE Score: 3 AUDIT C Alcohol Use Questionnaire (AUDIT-C) 1. How often do you have a drink containing alcohol?: Never Total Score: 0 NAV-7 AMB Questionnaire NAV-7 Date NAV - 7 assessed: 10/07/23 Feeling nervous, anxious, or on edge: 0 = Not at all Not being able to stop or control worryin = Not at all Worrying too much about different things: 0 = Not at all Trouble relaxin = Not at all Being so restless that it is hard to sit still: 0 = Not at all Becoming easily annoyed or irritable: 0 = Not at all Feeling afraid as if something awful might happen: 0 = Not at all Total NAV-7 score (0-4 normal; 5-9 mild; 10-14 moderate; 15-21 severe): 0 Source: Developed by Drs. Valeriano Bhakta, Lara Quinones, Julian Golden and colleagues, with an educational maria from [employer]. Physical exam (Primary Care) Vital Signs: Last Vital Signs Temp 99.1 F 12/12/24 09:20 Pulse 80 12/12/24 09:20 Resp 16 12/12/24 09:20 BP 122/74 12/12/24 09:20 Pulse Ox 97 12/12/24 09:20 Oxygen Delivery Method Room Air 12/12/24 09:20 BMI result Body Mass Index 29.6 Tobacco/Smoking Status: Tobacco use Status Tobacco use date assessed 10/07/23 12/12/24 09:18 Patient Tobacco Use Status Never used Tobacco 12/12/24 09:18 Tobacco use type Cigarette 12/12/24 09:18 e-Cigarette/Vaping Use Never Used 12/12/24 09:18 PHQ-9: PHQ-9 Score PHQ-9: Total score 0 12/12/24 10:31 Depression Screening Interpretation: Negative Thrive Assessment: Date of Thrive Assessment Date Thrive assessed 11/23/23 12/12/24 09:18 Currently or been in a relationship where the following occur: No concerns reported Results AMB Hemoglobin A1c AMB Hemoglobin A1c 6.0 % Last Edit by Eris Flanagan MA on 12/12/24 11:18 Results Reviewed Results Reviewed: Laboratory Last Values Hgb A1c (Clinic) 6.0 % (4.0-6.0) 12/12/24 09:21 Coding Level of Care Code Est Pt Level 5 (60707) Diagnoses Blurred vision, right eye H53.8 Hypothyroidism, unspecified type E03.9 Hypothyroidism type: unspecified Diabetes 1.5, managed as type 2 E13.9 Decompensated hepatic cirrhosis K72.90; K74.60 Crohn's disease of large intestine without complication K50.10 Gastrointestinal tract location: large intestine Digestive disease complication type: without complication Nephropathy N28.9 Anemia due to chronic kidney disease, unspecified CKD stage N18.9; D63.1 Anemia type: due to chronic kidney disease Chronic kidney disease stage: unspecified stage Pancytopenia D61.818 Rheumatoid arthritis of other site, unspecified whether rheumatoid factor present M06.9 Rheumatoid arthritis location: other site Rheumatoid factor presence: unspecified presence Additional Codes PHQ-9 - 48603 - PHQ-9 Billing: Yes ([id number]) Time Spent (min) 40 Comment review chart/labs/ consultations/ ER note/ face to face/ coordination Assessment & Plan Assessment & Plan (1) Blurred vision, right eye: Code(s): H53.8 - Other visual disturbances Category: Medical (2) Hypothyroidism: Code(s): E03.9 - Hypothyroidism, unspecified Category: Medical Qualifiers: Hypothyroidism type: unspecified Qualified Code(s): E03.9 - Hypothyroidism, unspecified (3) Diabetes 1.5, managed as type 2: Code(s): E13.9 - Other specified diabetes mellitus without complications Category: Medical (4) Decompensated hepatic cirrhosis: Code(s): K72.90 - Hepatic failure, unspecified without coma; K74.60 - Unspecified cirrhosis of liver Category: Medical (5) Crohn's disease: Code(s): K50.90 - Crohn's disease, unspecified, without complications Category: Medical Qualifiers: Gastrointestinal tract location: large intestine Digestive disease complication type: without complication Qualified Code(s): K50.10 - Crohn's disease of large intestine without complications (6) Nephropathy: Code(s): N28.9 - Disorder of kidney and ureter, unspecified Category: Medical (7) Anemia: Code(s): D64.9 - Anemia, unspecified Category: Medical Qualifiers: Anemia type: due to chronic kidney disease Chronic kidney disease stage: unspecified stage Qualified Code(s): N18.9 - Chronic kidney disease, unspecified; D63.1 - Anemia in chronic kidney disease (8) Pancytopenia: Code(s): D61.818 - Other pancytopenia Category: Medical (9) Rheumatoid arthritis: Code(s): M06.9 - Rheumatoid arthritis, unspecified Category: Medical Qualifiers: Rheumatoid arthritis location: other site Rheumatoid factor presence: unspecified presence Qualified Code(s): M06.9 - Rheumatoid arthritis, unspecified Plan Blurry vision in the right eye : - The patient reports a one-week history of extremely blurry vision in her right eye, preventing her from seeing in detail, while her left eye remains unaffected. - She denies any associated irritation, infection, or mucoid discharge but does report sinus pressure from allergies. - The patient visited the emergency room at [facility] for this issue approximately 10 days ago, where a brain scan was reportedly normal, with no infection found and no definitive cause identified. - She has a history of a similar, though less severe, episode of fuzzy vision in both eyes two to three years ago, which was attributed to a severe vitamin A deficiency. Hepatic Cirrhosis: - The patient has a history of hepatic cirrhosis complicated by ascites, portal hypertension, splenomegaly, anemia, and pancytopenia. - She is currently on the liver transplant list and is followed by gastroenterology at [facility]. Hypothyroidism: - The patient has a history of hypothyroidism and takes thyroid medication prescribed from this office. - A TSH level has been ordered to be drawn with her next set of labs. Diabetes Mellitus: - The patient has a history of diabetes, with a recent hemoglobin A1c of 6.0%. Hypertension: - She has a history of hypertension but is currently off her blood pressure medication, with a reading of 122/74 mmHg today. Medical History: - Hepatic cirrhosis with ascites, portal hypertension, and splenomegaly - Anemia - Pancytopenia - Hypertension - Diabetes mellitus - Hypothyroidism - Crohn's disease - Currently on the liver transplant list - Multiple admissions to the emergency room Social History: - Employment: Patient works full-time. - Housing and Financial Status: Patient reports her rent is $1,050 per month, while her Social Security check is $1,046, creating a financial deficit. - She has been on a housing assistance list for many years without success.. Problem List - Hepatic cirrhosis - Liver transplant evaluation - Portal hypertension - Ascites - Splenomegaly - Anemia - Pancytopenia - Hypertension - Diabetes Mellitus - Hypothyroidism - Crohn's disease - Blurry vision in right eye - Preventative care: Influenza vaccination Diagnostic results - Labs from 11/29/this year: Hemoglobin 9.3 g/dL, electrolytes within normal limits, GFR 41 mL/min/1.73 m?, creatinine 1.34 mg/dL, total bilirubin 1.3 mg/dL, AST 32 U/L, albumin 3.3 g/dL. - Labs from today: Hemoglobin A1c 6.0%. - Imaging: The patient reports having a brain scan at the [facility] approximately 10 days ago which was normal. [facility] of Care The patient is established with gastroenterology (Dr. Garcia) at [facility]. She gets her labs drawn at [facility] due to having a port. Plan - An urgent referral will be placed to [facility] for ophthalmology evaluation of sudden blurry vision in the right eye. - I will investigate why the notes from the patient's recent emergency room visit are not available in her chart. - A prescription for Vitamin A 7,000 units, #30 capsules, will be sent; the patient is instructed to take one capsule daily for a week and then weekly, and to discuss the regimen with the staff air defense officer. - A TSH level has been ordered to be drawn along with her next set of labs at [facility] to monitor her hypothyroidism. - Hemoglobin A1c was ordered to be checked today. 6.0 - The patient was advised to discuss getting the flu vaccine again with the nurse in [place] and to obtain it from a pharmacy if approved. - The patient is to follow up in April for a physical exam. Orders: Orders TSH reflex Free T4 Today E03.9 - Hypothyroidism, unspecified Referrals Ophthalmology Referral H53.8 - Other visual disturbances Medications: New vitamin A palmitate (A-25 (vit A palmitate)) 7,500 mcg PO DAILY 30 caps 0RF
[2024-12-12 09:20] VITALS: BP 122/74; PULSE 80; RESP 16; TEMP 37.3; O2SAT 97; BMI 29.6
--- OUTSIDE RECORDS SUMMARY | 2024-12-12 10:33 | XMS_ITS | Clinical Summary ---
Author Organization [facility] Address [address] [place] [address] Care Team Providers Care Cementer Helper Name Role Phone David Ortiz MD Primary Care Provider [phone] Allergies Active Allergy Reactions Criticality Noted Date [...] ORDERABLES Final Result HOSPITAL LAB See Below [facility] [address] [place] [address] * (ABNORMAL) Hemoglobin A1c with Estimated Average Glucose (07/29/2022 3:44 AM EDT) Hemoglobin A1C 5.7(H) <5.7 % 07/29/2022 8:47 AM EDT [facility] Comment: A1c% Interpretation 5.7 - 6.0 Increase [...] Final Resul t HOSPITAL LAB See Below [address] [address] from Last 3 Months or Most Recently Relevant to Health Maintenance Insurance [facility] MEDICARE OUT OF NETWORK NORBERTO GUERRA [id number] [facility] MEDICARE OUT OF NETWORK Advance Directives * Full Code (Latest Code Status on File) Date Activated Date Inactivated Comments 07/28/2022 10:27 PM Care Teams Cementer Helper Relationship Specialty Start Date End Date David Ortiz MD [address] [place] [id number] PCP - General Internal Medicine 07/29/22
--- OUTSIDE RECORDS SUMMARY | 2024-12-12 10:33 | XMS_ITS | Clinical Summary ---
Author Organization [facility] Address [address] [place] [id number] Care Team Providers Care Paper Coater Name Role Phone David Ortiz MD Primary Care Provider [phone] Social History Tobacco Use Types Packs/Day Years [...] of 1 - PCV) 021 Influenza Vaccine (#1) 2024 Insurance [facility] One Care Dual SNP ([id number]) Care Teams Paper Coater Relationship Specialty Start Date End Date David Ortiz MD [address] [place] [address] [id number] PCP - General Internal Medicine 12/12/23
== END 2024-12-12 09:55 | disposition home or self-care (01) ==
LOC: HO.HMCC 09:15
PROVIDERS: PCP Internal Medicine; Visit Provider Internal Medicine
DX: E13.9 Other specified diabetes mellitus without complications (principal); K72.90 Hepatic failure, unspecified without coma; K74.60 Unspecified cirrhosis of liver; K50.10 Crohn's disease of large intestine without complications; M06.9 Rheumatoid arthritis, unspecified; D61.818 Other pancytopenia; H53.8 Other visual disturbances; E03.9 Hypothyroidism, unspecified; N28.9 Disorder of kidney and ureter, unspecified; N18.9 Chronic kidney disease, unspecified; D63.1 Anemia in chronic kidney disease

== ENCOUNTER → 2024-12-12 09:14 | Outpatient (BNVA) | payer OTHER, SELFPAY | PROVIDERS: PCP Internal Medicine; Visit Provider Internal Medicine | DX: I12.9 Hypertensive chronic kidney disease with stage 1 through stage 4 chronic kidney disease, or unspecified chronic kidney disease (principal); H53.8 Other visual disturbances; E03.9 Hypothyroidism, unspecified; K74.60 Unspecified cirrhosis of liver; E13.22 Other specified diabetes mellitus with diabetic chronic kidney disease; K72.90 Hepatic failure, unspecified without coma; K50.10 Crohn's disease of large intestine without complications; N18.9 Chronic kidney disease, unspecified; D63.1 Anemia in chronic kidney disease; D61.818 Other pancytopenia; M06.9 Rheumatoid arthritis, unspecified | CPT/HCPCS: 83036; 96127; 99212 ==